=== PATIENT | female | born 1940 | race Caucasian/White ===

== ENCOUNTER → 2018-07-10 | Outpatient (CLI) | payer MEDICARE ==
--- NOTE | 2018-07-10 14:02 | US ---
EXAMINATION TYPE: US carotid duplex BILAT DATE OF EXAM: 07/10/2018 COMPARISON: NONE CLINICAL HISTORY: 77-year-old female TIA G45.9. TIA TECHNIQUE: Carotid duplex ultrasound examination. Indirect Doppler criteria was utilized. FINDINGS: EXAM MEASUREMENTS: RIGHT: Peak Systolic Velocity (PSV) cm/sec ----- Right CCA: 81.6 ----- Right ICA: 146.5 ----- Right ECA: 106.1 ICA/CCA ratio: 1.8 RIGHT: End Diastole cm/sec ----- Right CCA: 14.7 ----- Right ICA: 44.6 ----- Right ECA: 13.9 LEFT: Peak Systolic Velocity (PSV) cm/sec ----- Left CCA: 80.0 ----- Left ICA: 100.5 ----- Left ECA: 82.2 ICA/CCA ratio: 1.3 LEFT: End Diastole cm/sec ----- Left CCA: 22.7 ----- Left ICA: 35.8 ----- Left ECA: 18.3 VERTEBRALS (direction of flow): Right Vertebral: Antegrade Left Vertebral: Antegrade Rhythm: Normal Mild to moderate plaque bilateral bifurcations. Tortuous right ICA IMPRESSION: Elevated velocities in the right ICA may reflect a moderate (50-69%) stenosis or could be secondary t o vessel tortuosity. Criteria for Assigning % of Stenosis / Diameter reduction (Estimation based on the indirect measurements of the internal carotid artery velocities (ICA PSV). 1. Normal (no stenosis)=ICA PSV < 125 cm/s: ratio < 2.0: ICA EDV<40 cm/s. 2. Less than 50% stenosis=ICA PSV < 125 cm/s: ratio < 2.0: ICA EDV<40 cm/s. 3. 50 to 69% stenosis=ICA PSV of 125 to 230 cm/s: ration 2.0 ? 4.0: ICA EDV 40-100 cm/s. 4. Greater than 70% stenosis to near occlusion= ICA PSV > 230 cm/s: ratio > 4.0: ICA EDV > 100 cm/s. 5. Near occlusion= ICA PSV velocities may be low or undetectable: variable ratio and ICA EDV. 6. Total occlusion=unable to detect flow.
--- NOTE | 2018-07-10 15:39 | BD ---
EXAMINATION TYPE: Axial Bone Density DATE OF EXAM: 07/10/2018 COMPARISON: NONE CLINICAL HISTORY: 77-year-old female with osteoporosis Height: 63.5 IN Weight: 136 LBS RISK FACTORS HISTORY OF: Active: YES Postmenopausal woman: AGE 53 TOTAL HYSTERECTOMY Take estrogen and/or progesterone medications: NOT NOW How long: TOOK AGE 52 - 57 Lost more than 2 inches in height since high school: YES 07/26" MEDICATIONS: Additional Medications: CALCIUM, VIT D, RESTLESS LEG SYNDROME MEDS, XANAX, EXAM MEASUREMENTS: Bone mineral densitometry was performed using the [employer] Spirits System. Bone mineral density as measured about the Lumbar spine is: ----- L1-L4(G/cm2): 0.846 T Score Values are as follows: ----- L2: -3.7 ----- L3: -3.2 ----- L4: -2.1 ----- L1-L4: -2.8 Bone mineral density BASELINE Bone mineral density about the R hip (g/cm2): 0.795 Bone mineral density about the L hip (g/cm2): 0.938 T Score values are as follows: -----R Neck: -1.7 -----L Neck: -0.7 -----R Total: -2.0 -----L Total: -1.5 Bone mineral density BASELINE IMPRESSION: Osteoporosis (T Score less than -2.5). There is increased fracture risk and therapy is usually indicated based on age. Re-Screen 1-2 years. NOTE: T-SCORE=SD OF THE YOUNG ADULT MEAN.
--- NOTE | 2018-07-11 12:39 | ECHOF ---
Referral Reason:G45.9 MEASUREMENTS -------- HEIGHT: 162.6 cm WEIGHT: 61.2 kg BP: RVIDd: 2.5 cm (< 3.3) IVSd: 1.3 cm (0.6 - 1.1) LVIDd: 4.2 cm (3.9 - 5.3) LVPWd: 1.6 cm (0.6 - 1.1) IVSs: 1.6 cm LVIDs: 3.2 cm LVPWs: 1.3 cm LA Diam: 3.9 cm (2.7 - 3.8) LAESV Index (A-L): 57.83 ml/m Ao Diam: 2.8 cm (2.0 - 3.7) AV Cusp: 1.8 cm (1.5 - 2.6) LA Diam: 4.6 cm (2.7 - 3.8) MV EXCURSION: 15.618 mm (> 18.000) MV EF SLOPE: 44 mm/s (70 - 150) EPSS: 0.4 cm MV E Cody: 0.54 m/s MV DecT: 257 ms MV A Cody: 0.69 m/s MV E/A Ratio: 0.78 RAP: 5.00 mmHg RVSP: 48.80 mmHg FINDINGS -------- Sinus rhythm. This was a technically good study. The left ventricular size is normal. Left ventricular wall thickness is normal. Overall left vent ricular systolic function is normal with, an EF between 55 - 60 %. The right ventricle is normal in size. The left atrium is markedly dilated. LA is severely dilated >40 ml/m2 The right atrial size is normal. The aortic valve is trileaflet, and appears structurally normal. No aortic stenosis or regurgitation. The mitral valve leaflets are mildly thickened. Mild mitral annular calcification present. Modera te mitral regurgitation is present. Mild tricuspid regurgitation present. There is mild to moderate pulmonary hypertension. The right ventricular systolic pressure, as measured by Doppler, is 48.80mmHg. Trace/mild (physiologic) pulmonic regurgitation. The aortic root size is normal. There is no pericardial effusion. CONCLUSIONS -------- 1. The left ventricular size is normal. 2. Left ventricular wall thickness is normal. 3. Overall left ventricular systolic function is normal with, an EF between 55 - 60 %. 4. The right ventricle is normal in size. 5. The left atrium is markedly dilated. 6. LA is severely dilated >40 ml/m2 7. The right atrial size is normal. 8. The aortic valve is trileaflet, and appears structurally normal. No aortic stenosis or regurgitati on. 9. The mitral valve leaflets are mildly thickened. 10. Mild mitral annular calcification present. 11. Moderate mitral regurgitation is present. 12. Mild tricuspid regurgitation present. 13. There is mild to moderate pulmonary hypertension. 14. The right ventricular systolic pressure, as measured by Doppler, is 48.80mmHg. 15. Trace/mild (physiologic) pulmonic regurgitation. 16. The aortic root size is normal. 17. There is no pericardial effusion. REFUGE MANAGER: Jennie Santos RDCS
--- NOTE | 2018-07-20 14:51 | MM ---
Reason for exam: screening (asymptomatic). Last mammogram was performed 18 years and 5 months ago. History: Patient is postmenopausal. Family history of premenopausal breast cancer in sister. Took estrogen for 3 years. Physical Findings: A clinical breast exam by your physician is recommended on an annual basis and results should be correlated with mammographic findings. MG Screening Mammo w CAD Bilateral CC and MLO view(s) were taken. Prior study comparison: May 05, 2015, mammogram. March 28, 2014, mammogram. November 18, 2011, mammogram. There are scattered fibroglandular densities. Stable benign calcifications. There is no discrete abnormality. No significant changes when compared with prior studies. ASSESSMENT: Benign, BI-RAD 2 RECOMMENDATION: Routine screening mammogram of both breasts in 1 year.
== END | disposition home or self-care (01) ==
LOC: RADUSWWP 12:07
PROVIDERS: ATTEND Internal Medicine
DX: Z12.31 Encounter for screening mammogram for malignant neoplasm of breast (principal); M81.0 Age-related osteoporosis without current pathological fracture; G45.9 Transient cerebral ischemic attack, unspecified; I08.1 Rheumatic disorders of both mitral and tricuspid valves; I27.20 Pulmonary hypertension, unspecified
CPT/HCPCS: 77067; 77080; 93306; 93880

== ENCOUNTER → 2018-08-04 | Outpatient (CLI) | payer MEDICARE ==
[~2018-08-04] MED LIST: SODIUM CHLORIDE 0.9% 500 ML 500 ML in EMPTY BAG 1 BAG IV PRN; SODIUM FERRIC GLUCONAT-SUCROSE 125 MG in SODIUM CHLORIDE 0.9% 100 ML IVPB NR
[2018-08-04 12:56] VITALS: BP 156/66; PULSE 70; RESP 16; TEMP 98.2
== END | disposition home or self-care (01) ==
LOC: PROCWHC3 12:14
PROVIDERS: ATTEND Internal Medicine
DX: D64.9 Anemia, unspecified (principal)
CPT/HCPCS: 96365; J2916

== ENCOUNTER 2018-08-24 09:51 | Day surgery (SDC) | payer MEDICARE ==
[2018-08-23 08:47] VITALS: BMI 23.5
[~2018-08-24 09:51] MED LIST changes: +LACTATED RINGERS 1,000 ML IV SCH; +LIDOCAINE 1% 20 ML VIAL (10MG/ML) FOR IV START INTRADERMA PRN; -SODIUM CHLORIDE 0.9% 500 ML 500 ML in EMPTY BAG 1 BAG IV PRN; -SODIUM FERRIC GLUCONAT-SUCROSE 125 MG in SODIUM CHLORIDE 0.9% 100 ML IVPB NR
[2018-08-24] MEDS ORDERED: LIDOCAINE 1% 20 ML VIAL (10MG/ML) FOR IV START INTRADERMA ONE (10:20)
[2018-08-24 10:32] VITALS: TEMP 97.7
[2018-08-24] MEDS ORDERED: PROPOFOL 10 MG/ML 20 ML VIAL IV ONE (10:56)
[2018-08-24] MEDS ORDERED: LIDOCAINE 1% INJ 10MG/ML (20 ML MDV) ONE (10:56)
--- NOTE | 2018-08-24 12:03 | P.PCN ---
Date of Procedure: 08/24/18 Description of Procedure: BRIEF HISTORY: Patient is a 77-year-old pleasant female patient who is scheduled for an elective colonoscopy as a part of evaluation of a positive Cologard with her PCP. The patient has a family history of colon cancer in her mother, as well as prior colonoscopies with removal of polyps, the last approximately 5 years ago. She denies any change in bowel habits, blood per rectum, or unintentional weight loss. PROCEDURE PERFORMED: Colonoscopy with cold snare polypectomy. PREOPERATIVE DIAGNOSIS: Positive cologard, high risk colon cancer screening, family history of colon cancer. ESTIMATED BLOOD LOSS: Minimal. IV sedation per Anesthesia. PROCEDURE: After informed consent was obtained, the patient, was brought into the endoscopy unit. IV sedation was administered by Anesthesia under continuous monitoring. Digital rectal examination was normal. Initially the Olympus CF- 190 flexible video colonoscope was then inserted in the rectum, gradually advanced into the cecum without any difficulty. Careful examination was performed as the scope was gradually being withdrawn. Ileocecal valve and the appendiceal orifice were visualized and appeared normal. Prep was excellent. Mucosa of the cecum, ascending colon, transverse colon, descending colon, sigmoid colon, and rectum appeared normal. The patient had small and large diverticula in the entire examined colon. A large 8 mm sessile polyp was noted in the cecum and removed with cold snare polypectomy. A 5 mm sessile polyp was noted in the transverse colon and removed with cold snare polypectomy. A 4 mm sessile polyp was noted in the descending colon and removed with cold snare polypectomy. Retroflexion was performed in the rectum and no lesions were seen , mild internal hemorrhoids were noted. The patient tolerated the procedure well. IMPRESSION: Normal-appearing colon from rectum to cecum. Cold snare polypectomy of polyps in the cecum, transverse colon, and descending colon. Pandiverticulosis. Mild internal hemorrhoids. RECOMMENDATIONS: Findings of this examination were discussed with the patient and her niece. Okay to resume diet. Would recommend repeat colonoscopy in 5 years. Await pathology from biopsies.
[2018-08-24 12:04] VITALS: RESP 18
[2018-08-24 12:17] VITALS: BP 167/70; PULSE 78
== END 2018-08-24 12:33 | disposition home or self-care (01) ==
LOC: ORWHC2ENDO 09:51
PROVIDERS: ATTEND Internal Medicine
DX: D12.0 Benign neoplasm of cecum (principal); D12.4 Benign neoplasm of descending colon; D12.3 Benign neoplasm of transverse colon; K64.8 Other hemorrhoids; Z86.010 Personal history of colon polyps; Z80.0 Family history of malignant neoplasm of digestive organs; Z87.891 Personal history of nicotine dependence; Z86.73 Personal history of transient ischemic attack (TIA), and cerebral infarction without residual deficits; E78.5 Hyperlipidemia, unspecified; Z79.82 Long term (current) use of aspirin; Z79.899 Other long term (current) drug therapy; F32.9 Major depressive disorder, single episode, unspecified; F41.9 Anxiety disorder, unspecified
CPT/HCPCS: 88305; 45385; J2001; J2704

== ENCOUNTER → 2018-09-06 | Outpatient (CLI) | payer MEDICARE ==
[~2018-09-06] MED LIST changes: +FERUMOXYTOL 510 MG in SODIUM CHLORIDE 0.9% 50 ML IVPB ONE; -LACTATED RINGERS 1,000 ML IV SCH; -LIDOCAINE 1% 20 ML VIAL (10MG/ML) FOR IV START INTRADERMA PRN; +SODIUM CHLORIDE 0.9% 500 ML 500 ML in EMPTY BAG 1 BAG IV PRN; +SODIUM FERRIC GLUCONAT-SUCROSE 125 MG in SODIUM CHLORIDE 0.9% 100 ML IVPB ONE
[2018-09-06 13:45] VITALS: BP 176/78; PULSE 76; RESP 16; TEMP 97.9
== END ==
LOC: PROCWHC3 13:13
PROVIDERS: ATTEND Internal Medicine
DX: D64.9 Anemia, unspecified (principal)
CPT/HCPCS: 96365; J2916

== ENCOUNTER 2018-12-23 17:02 | Observation (INO) | payer MEDICARE, OTHER ==
--- NOTE | 2018-12-23 17:28 | ED ---
General Adult HPI - General Chief complaint: Neuro Symptoms/Deficit Stated complaint: fingers locking up/left arm numbness Time Seen by Provider: 12/23/18 17:11 Source: patient Mode of arrival: ambulatory Limitations: no limitations - History of Present Illness Initial comments: Dictation was produced using [employer] dictation software. please excuse any grammatical, word or spelling errors. Chief Complaint: 77-year-old female past medical history of CVA, TIA, dyslipidemia presents with numbness to the hypothenar eminence. History of Present Illness: Patient is a 77-year-old female presents with numbness to the hypothenar eminence. She has history of CVA involving the brainstem. She states that she came to the emergency Department pressures were about a stroke. Patient states that early this morning she did hit her hand the same side where she is currently experiencing numbness. She states she got her hand caught when she was shutting the door. She was at dinner when she went to wipe her hand and felt some decrease sensation to her left hyperthenar eminence. Patient's history of peripheral neuropathy. Denies any other neurologic complaints. The ROS documented in this emergency department record has been reviewed and confirmed by me. Those systems with pertinent positive or negative responses have been documented in the HPI. All other systems are other negative and/or noncontributory. PHYSICAL EXAM: General Impression: Alert and oriented x3, not in acute distress HEENT: Normocephalic atraumatic, extra-ocular movements intact, pupils equal and reactive to light bilaterally, mucous membranes moist. Cardiovascular: Heart regular rate and rhythm, S1&S2 audible, no murmurs, rubs or gallops Chest: Lungs clear to auscultation bilaterally, no rhonchi, no wheeze, no rales Abdomen: Bowel sounds present, abdomen soft, non-tender, non-distended, no organomegaly Musculoskeletal: Pulses present and equal in all extremities, no peripheral edema Motor: no focal deficits noted Neurological: CN II-XII grossly intact, no focal motor or sensory deficits noted, no facial droop, no aphasia, dysarthria, no ataxia Skin: Intact with no visualized rashes Psych: Normal affect and mood ED course: 77-year-old female presents with chief complaint of numbness to the hyperthenar eminence. Patient has NIH of 0. Upon arrival are within acceptable limits. Patient is concerned about stroke. Reassurance provided however patient was adamant about stroke workup. Discussed patient that her symptoms are not consistent with stroke. Patient then reports that over the last week she's been having numbness to the whole upper left extremity. Abdomen evaluation obtained. CBC, coag panel, metabolic panel is unremarkable. Patient does however have mild hypokalemia of 3.3. Patient given by mouth potassium. Patient glucose 67 she is given by mouth. Hand x-ray chest x-ray and brain CT is unremarkable. Patient given aspirin for concerns of CVA versus TIA. Patient be admitted to observation with neurology consultation. EKG interpretation: Ventricular rate 76, normal sinus rhythm, CA interval 136, QS 90, QTC 452. No CA prolongation, no QTC prolongation, no ST or T-wave changes noted. Overall, this EKG is unremarkable - Related Data Home Medications Medication Instructions Recorded Confirmed Atorvastatin [Lipitor] 40 mg PO HS 08/04/18 12/23/18 PARoxetine [Paxil] 40 mg PO HS 08/04/18 12/23/18 rOPINIRole HCL [Requip] 1 mg PO TID 08/04/18 12/23/18 ALPRAZolam [Xanax] 0.25 mg PO BID PRN 08/23/18 12/23/18 Alendronate Sodium [Fosamax] 70 mg PO MO 08/23/18 12/23/18 Allergies Allergy/AdvReac Type Severity Reaction Status Date / Time No Known Allergies Allergy Verified 12/23/18 17:34 Review of Systems ROS Statement: Those systems with pertinent positive or pertinent negative responses have been documented in the HPI. ROS Other: All systems not noted in ROS Statement are negative. Past Medical History Past Medical History: CVA/TIA, Hyperlipidemia Additional Past Medical History / Comment(s): Restless leg syndrome. Mini- stroke 1998 History of Any Multi-Drug Resistant Organisms: MRSA Date of last positivie culture/infection: 2003 MDRO Source:: unknown per pt. Past Surgical History: Hernia Repair, Hysterectomy Additional Past Surgical History / Comment(s): Hiatal hernia repair Past Psychological History: Anxiety Smoking Status: Former smoker Past Alcohol Use History: None Reported Past Drug Use History: None Reported General Exam Limitations: no limitations Course Vital Signs 12/23/18 12/23/18 17:05 19:03 Temperature 98.5 F Pulse Rate 83 78 Respiratory 18 18 Rate Blood Pressure 136/71 132/65 O2 Sat by Pulse 100 98 Oximetry Medical Decision Making - Lab Data Result diagrams: 12/23/18 17:30 12/23/18 17:30 Lab Results 12/23/18 12/23/18 12/23/18 Range/Units 17:30 17:30 17:30 WBC 5.4 (3.8-10.6) k/uL RBC 4.52 (3.80-5.40) m/uL Hgb 12.3 (11.4-16.0) gm/dL Hct 38.8 (34.0-46.0) % MCV 85.7 (80.0-100.0) fL MCH 27.2 (25.0-35.0) pg MCHC 31.7 (31.0-37.0) g/dL RDW 15.4 (11.5-15.5) % Plt Count 201 (150-450) k/uL Neutrophils % 62 % Lymphocytes % 27 % Monocytes % 6 % Eosinophils % 3 % Basophils % 0 % Neutrophils # 3.3 (1.3-7.7) k/uL Lymphocytes # 1.5 (1.0-4.8) k/uL Monocytes # 0.3 (0-1.0) k/uL Eosinophils # 0.1 (0-0.7) k/uL Basophils # 0.0 (0-0.2) k/uL Hypochromasia Slight PT 9.7 (9.0-12.0) sec INR 0.9 (<1.2) APTT 23.9 (22.0-30.0) sec Sodium 143 (137-145) mmol/L Potassium 3.3 L (3.5-5.1) mmol/L Chloride 109 H (98-107) mmol/L Carbon Dioxide 27 (22-30) mmol/L Anion Gap 7 mmol/L BUN 19 H (7-17) mg/dL Creatinine 0.75 (0.52-1.04) mg/dL Est GFR (CKD-EPI)AfAm >90 (>60 ml/min/1.73 sqM) Est GFR (CKD-EPI)NonAf 78 (>60 ml/min/1.73 sqM) Glucose 67 L (74-99) mg/dL Calcium 9.6 (8.4-10.2) mg/dL Total Bilirubin 0.4 (0.2-1.3) mg/dL AST 18 (14-36) U/L ALT 14 (9-52) U/L Alkaline Phosphatase 91 (38-126) U/L Creatine Kinase 66 (30-135) U/L Troponin I (0.000-0.034) ng/mL Total Protein 6.2 L (6.3-8.2) g/dL Albumin 3.7 (3.5-5.0) g/dL 12/23/18 Range/Units 17:30 WBC (3.8-10.6) k/uL RBC (3.80-5.40) m/uL Hgb (11.4-16.0) gm/dL Hct (34.0-46.0) % MCV (80.0-100.0) fL MCH (25.0-35.0) pg MCHC (31.0-37.0) g/dL RDW (11.5-15.5) % Plt Count (150-450) k/uL Neutrophils % % Lymphocytes % % Monocytes % % Eosinophils % % Basophils % % Neutrophils # (1.3-7.7) k/uL Lymphocytes # (1.0-4.8) k/uL Monocytes # (0-1.0) k/uL Eosinophils # (0-0.7) k/uL Basophils # (0-0.2) k/uL Hypochromasia PT (9.0-12.0) sec INR (<1.2) APTT (22.0-30.0) sec Sodium (137-145) mmol/L Potassium (3.5-5.1) mmol/L Chloride (98-107) mmol/L Carbon Dioxide (22-30) mmol/L Anion Gap mmol/L BUN (7-17) mg/dL Creatinine (0.52-1.04) mg/dL Est GFR (CKD-EPI)AfAm (>60 ml/min/1.73 sqM) Est GFR (CKD-EPI)NonAf (>60 ml/min/1.73 sqM) Glucose (74-99) mg/dL Calcium (8.4-10.2) mg/dL Total Bilirubin (0.2-1.3) mg/dL AST (14-36) U/L ALT (9-52) U/L Alkaline Phosphatase (38-126) U/L Creatine Kinase (30-135) U/L Troponin I <0.012 (0.000-0.034) ng/mL Total Protein (6.3-8.2) g/dL Albumin (3.5-5.0) g/dL Disposition Clinical Impression: Neurologic abnormality Disposition: ADMITTED IP TO THIS HOSP Condition: Fair Referrals: Colleen Pires MD [Primary Care Provider] - 1-2 days Decision Time: 19:17
[2018-12-23 18:10] LABS: Basophils % (A) 0 %; Eosinophils # (A) 0.1 k/uL (0-0.7); Eosinophils % (A) 3 %; HCT 38.8 % (34.0-46.0); HGB 12.3 gm/dL (11.4-16.0); Hypochromasia Slight; Lymphocytes # (A) 1.5 k/uL (1.0-4.8); Lymphocytes % (A) 27 %; MCH 27.2 pg (25.0-35.0); MCHC 31.7 g/dL (31.0-37.0); MCV 85.7 fL (80.0-100.0); Mean Platelet Volume 7.5; Monocytes # (A) 0.3 k/uL (0-1.0); Monocytes % (A) 6 %; Neutrophils # (A) 3.3 k/uL (1.3-7.7); Neutrophils % (A) 62 %; Platelet Count 201 k/uL (150-450); RBC 4.52 m/uL (3.80-5.40); RDW 15.4 % (11.5-15.5); WBC 5.4 k/uL (3.8-10.6)
--- NOTE | 2018-12-23 18:14 | CT ---
EXAMINATION TYPE: CT brain wo con DATE OF EXAM: 12/23/2018 HISTORY: Neuro deficits. CT DLP: 1087.4 mGycm. Automated Exposure Control for Dose Reduction was Utilized. TECHNIQUE: CT scan of the head is performed without contrast. COMPARISON: None. FINDINGS: There is no acute intracranial hemorrhage or midline shift identified. There is diffuse v entricular and sulcal prominence consistent with diffuse age-related cerebral atrophy. There is low- attenuation in the periventricular white matter consistent with chronic small vessel ischemic change. The globes are intact and the visualized sinuses are clear. IMPRESSION: No acute intracranial hemorrhage or midline shift. There is mild to moderate diffuse ag e-related cerebral atrophy and chronic small vessel ischemic change noted.
[2018-12-23 18:18] LABS: ALT 14 U/L (9-52); AST 18 U/L (14-36); Albumin 3.7 g/dL (3.5-5.0); Alkaline Phosphatase 91 U/L (38-126); Anion Gap 7 mmol/L; Blood Urea Nitrogen 19 mg/dL (7-17); Calcium 9.6 mg/dL (8.4-10.2); Carbon Dioxide 27 mmol/L (22-30); Chloride 109 mmol/L (98-107); Creatine Kinase 66 U/L (30-135); Glucose 67 mg/dL (74-99); Potassium 3.3 mmol/L (3.5-5.1); Sodium 143 mmol/L (137-145); Total Bilirubin 0.4 mg/dL (0.2-1.3); Total Protein 6.2 g/dL (6.3-8.2)
--- NOTE | 2018-12-23 18:18 | XR ---
EXAMINATION TYPE: XR chest 2V DATE OF EXAM: 12/23/2018 COMPARISON: NONE HISTORY: Altered mental status and weakness. TECHNIQUE: Frontal and lateral views of the chest are obtained. FINDINGS: Overlying EKG leads are seen. There is no focal air space opacity, pleural effusion, or pn eumothorax seen. The cardiac silhouette size is within normal limits with atherosclerotic change in the aortic knob. The osseous structures are intact. IMPRESSION: No acute cardiopulmonary process.
--- NOTE | 2018-12-23 18:19 | XR ---
EXAMINATION TYPE: XR hand complete LT DATE OF EXAM: 12/23/2018 CLINICAL HISTORY: Pain per order. Left hand weakness. TECHNIQUE: Frontal, lateral and oblique images of the left hand are obtained. COMPARISON: None. FINDINGS: Demineralization is present. There is no acute fracture/dislocation evident in the left burgos d. Mild narrowing throughout the PIP and DIP joints of the fingers is present. The overlying soft ti ssue appears unremarkable. IMPRESSION: As above.
[2018-12-23 18:21] LABS: INR 0.9 (<1.2); Partial Thromboplastin Time 23.9 sec (22.0-30.0); Prothrombin Time 9.7 sec (9.0-12.0)
[2018-12-23] MEDS ORDERED: POTASSIUM CHLORIDE ER 20 MEQ TAB.ER PO STA (18:33)
[2018-12-23] MEDS ORDERED: ASPIRIN 325 MG TAB PO STA (19:14)
[2018-12-23] MEDS: SODIUM CHLORIDE 0.9% 1,000 ML IV SCH ×2 (19:19→19:52)
[2018-12-23 20:56] VITALS: BMI 23.8
--- NOTE | 2018-12-23 20:57 | P.CNNES ---
History of Present Illness Consult date: 12/23/18 Reason for Consult: Neuro symptoms History of Present Illness: Patient is a 77-year-old female who claims that she had history of "mini stroke in the brainstem" about 15 years ago. She was placed on aspirin, but a few years later patient was told by her physician to stop taking it. She was living in [place] at that time. At present she is not taking any antiplatelet medications for years. Patient states that in the past 3 months she has been having intermittent numbness and tingling of the left arm, pointing to the entire left arm. It does not involve the face or the leg. Denies any weakness, problems with the vision, slurred speech or facial droop. Patient says that she was out to dinner with her friend, when her left hand started curling up. Patient's description of the symptoms appears more like a muscle cramp or a charley horse. She felt pain in the center of the palm. She got concerned if she was having a stroke and therefore came to the ER. Patient also feels that when she is walking, she sometimes veers to the right side. Patient underwent computed tomography scan of the brain, which revealed no acute intracranial hemorrhage or midline shift. There is mild to moderate diffuse age-related cerebral atrophy and chronic small vessel ischemic change. Chest x- ray showed no acute cardiopulmonary process. EKG showed normal sinus rhythm. Patient had a 2-D echo performed 07/10/2018, which revealed EF 55-60%, normal left ventricular size. Left atrium is markedly dilated. Moderate mitral regurgitation. Patient had carotid Doppler on 07/10/2018, which revealed elevated velocities in the right ICA may reflect a moderate 50-69% stenosis or could be secondary to vessel tortuosity. Patient denies hypertension or diabetes. She had history of a mini stroke 15 years ago when she developed weakness of the left side. She smoked 1 pack per day for 14 years, quit 15-20 years ago. Denies any alcohol. Patient's blood test were reviewed. Liver functions are normal. Review of Systems All systems: negative (Frequent cramps in the left leg.) Past Medical History Past Medical History: CVA/TIA, Hyperlipidemia Additional Past Medical History / Comment(s): Restless leg syndrome. Mini- stroke 1998 History of Any Multi-Drug Resistant Organisms: MRSA Date of last positivie culture/infection: 2003 MDRO Source:: unknown per pt. Past Surgical History: Hernia Repair, Hysterectomy Additional Past Surgical History / Comment(s): Hiatal hernia repair Past Psychological History: Anxiety Smoking Status: Former smoker Past Alcohol Use History: None Reported Past Drug Use History: None Reported Medications and Allergies Home Medications Medication Instructions Recorded Confirmed Type Atorvastatin [Lipitor] 40 mg PO HS 08/04/18 12/23/18 History PARoxetine [Paxil] 40 mg PO HS 08/04/18 12/23/18 History rOPINIRole HCL [Requip] 1 mg PO TID 08/04/18 12/23/18 History ALPRAZolam [Xanax] 0.25 mg PO BID PRN 08/23/18 12/23/18 History Alendronate Sodium [Fosamax] 70 mg PO MO 08/23/18 12/23/18 History Allergies Allergy/AdvReac Type Severity Reaction Status Date / Time No Known Allergies Allergy Verified 12/23/18 17:34 Physical Examination - Vital Signs Vital Signs: Vital Signs Temp Pulse Resp BP Pulse Ox 12/23/18 19:59 80 15 12/23/18 19:28 98.2 F 72 16 136/72 96 12/23/18 19:03 78 18 132/65 98 12/23/18 17:05 98.5 F 83 18 136/71 100 Intake and Output 12/23/18 12/23/18 12/23/18 06:59 14:59 22:59 Other: Weight 62.142 kg On examination patient is an elderly female, in no distress. Patient is alert and awake, fully oriented. Speech and language functions are normal. On cranial nerve examination, patient has mild left facial asymmetry. Tongue protrudes the midline. Palatal elevation and sensation normal. On muscle s trength testing, there is no pronator drift and the strength is normal in arms and legs distally and proximally. Reflexes are 2 in the upper limbs, 3 at the knees, 1 at the right ankle trace on the left. Plantars are downgoing. Patient gets frequent cramps in the left leg. Sensory touch is equal. No ataxia for [id number], tone and bulk of muscles normal. Gait appears normal. Results - Laboratory Findings CBC and BMP: 12/23/18 17:30 12/23/18 17:30 Abnormal Lab Findings: Abnormal Labs 12/23/18 17:30 Potassium 3.3 L Chloride 109 H BUN 19 H Glucose 67 L Total Protein 6.2 L Assessment and Plan Assessment: * Left arm numbness off and on for last 3 months, unclear etiology. Rule out TIA, Doubt acute CVA. * History of moderate left ICA stenosis noted on carotid Doppler from 07/10/2018 * Probable muscle cramps left hand. No definitive evidence of acute CVA. * X tobacco use * History of previous TIA/CVA. Plan: * Patient has moderate right ICA stenosis noted on previous carotid Doppler. With recurrent symptoms of the left arm, we will check CTA of head and neck to rule out any significant carotid stenosis or occlusion. * Agree with starting aspirin 325 mg daily for now. * We will check fasting lipid panel, hemoglobin A1c, B12, folate.
[2018-12-23] MEDS ORDERED: ATORVASTATIN 40 MG TAB PO SCH (21:00)
[2018-12-23] MEDS: FAMOTIDINE 20 MG TAB PO SCH (21:11)
[2018-12-24 08:19] VITALS: RESP 18
[2018-12-24] MEDS: FAMOTIDINE 20 MG TAB PO SCH (08:24)
[2018-12-24] MEDS ORDERED: ASPIRIN 325 MG TAB PO SCH (09:00)
--- NOTE | 2018-12-24 13:09 | P.HPIM ---
History of Present Illness H&P Date: 12/24/18 Chief Complaint: Left hand cramping HISTORY AND PHYSICAL AND DISCHARGE SUMMARY: This is a 77-year-old female patient of Dr. Pires with past medical history of TIA, hyperlipidemia, restless leg syndrome, iron deficiency anemia worked up in July status post colonoscopy found tubular adenoma, carotid stenosis. The patient states that she was diagnosed with a TIA in [place] and had left and weakness. Patient states she developed numbness and tingling to the left arm but this is a going on for some time and she does have chronic neck pain possibly all related to degenerative disc disease of the cervical spine. The patient states that she yesterday she developed cramping and the left ring finger and she could not bend it followed by involvement of the third digit and fifth digit as well. She denied any slurred speech. Patient also states that she has had dizzy spells where she starts to fall over and has to catch herself when she is walking. She states she has about one of these episodes per day and they have been going on for some time. The patient presented to [facility] emergency center for e valuation. She was found to have a potassium 3.3, chloride 109, BUN 19 and creatinine 0.75, blood sugar 67. Triglycerides 50, cholesterol 124, LDL 56, HDL 58, TSH 2.020. Magnesium 1.9 CAT scan of the brain revealed no acute intracranial hemorrhage or midline shift shift. [id number] diffuse age- related cerebral atrophy and chronic small vessel ischemic change. Chest x-ray showed no acute cardio pulmonary process. EKG was a normal sinus rhythm. Echocardiogram in June 2018 had EF of 55-60%, normal left ventricular size. Left atrium markedly dilated. Moderate mitral regurgitation. Carotid Doppler on 07/10/2018 had elevated velocities on the right ICA may reflect moderate 50-6 9% stenosis or secondary to vessel tortuosity. The patient has been seen by Dr. Sharma and he has ordered CTA of the head and neck to rule out significant carotid stenosis or occlusion. Patient is currently on aspirin 325 mg daily. Hemoglobin A1c, vitamin B12, folate and lipid panel ordered. Patient's symptoms have resolved. Folate, Hemoglobin A1c, Vitamin B12 are all pending. CTA of the head and neck revealed no significant stenosis in either carotid system. 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 Left vertebral artery attenuates as it leaves the transverse foramen but reconstitution with normal caliber. [place] otherwise unremarkable. Degenerative changes within the spine. Emphysematous changes within the lungs. Mild chronic sinus mucosal disease. Patient has been cleared for discharge by neurology. Patient will be discharged home today in stable condition. Aspirin has been added to patient's home medication regime. Review of Systems All systems: negative Constitutional: Denies chills, Denies fatigue, Denies fever, Denies lethargy, Denies malaise, Denies poor appetite, Denies weight loss Eyes: denies blurred vision, denies pain Ears, nose, mouth and throat: Denies dysphagia, Denies headache, Denies nasal congestion, Denies nasal discharge, Denies sore throat Cardiovascular: Denies chest pain, Denies decreased exercise tolerance, Denies dyspnea on exertion, Denies edema, Denies leg edema, Denies lightheadedness, Denies shortness of breath, Denies syncope Respiratory: Denies cough, Denies cough with sputum, Denies dyspnea, Denies excessive sputum, Denies hemoptysis, Denies home oxygen, Denies wheezing Gastrointestinal: Denies abdominal pain, Denies diarrhea, Denies loss of appetite, Denies melena, Denies nausea, Denies vomiting Genitourinary: Denies dysuria, Denies hematuria, Denies urgency, Denies urinary frequency Musculoskeletal: Reports arm numbness/tingling, Denies frequent falls, Denies gait dysfunction, Denies muscle weakness, Denies myalgias Integumentary: Denies pruritus, Denies rash Neurological: Denies aphasia, Denies change in mentation, Denies change in speech, Denies confusion, Denies gait dysfunction, Denies headaches, Denies numbness, Denies weakness Psychiatric: Denies anxiety, Denies depression Endocrine: Denies fatigue, Denies weight change Past Medical History Past Medical History: CVA/TIA, Hyperlipidemia Additional Past Medical History / Comment(s): Restless leg syndrome. Mini- stroke 1998 History of Any Multi-Drug Resistant Organisms: MRSA Date of last positivie culture/infection: 2003 MDRO Source:: unknown per pt. Past Surgical History: Hernia Repair, Hysterectomy Additional Past Surgical History / Comment(s): Hiatal hernia repair Past Psychological History: Anxiety Smoking Status: Former smoker Past Alcohol Use History: None Reported Additional Past Alcohol Use History / Comment(s): Patient was a smoker of less than one pack per day for approximately 30 years and quit 14 years ago. Patient is and lives alone. No alcohol use. Past Drug Use History: None Reported - Past Family History Father Additional Family Medical History / Comment(s): Father at age 76 from heart failure. Mother Additional Family Medical History / Comment(s): Mother at age 76 from colon cancer. Brother(s) Additional Family Medical History / Comment(s): Patient has one brother with history of prostate cancer and from, occasions of agent orange exposure in [place]. Sister(s) Additional Family Medical History / Comment(s): The patient has 3 sisters. One has history of breast cancer and carotid stenosis. 1 has bipolar disorder. One has no major medical problems. Patient has 2 children, one daughter at 50 years of age and one son age 44 with no major medical problems. Medications and Allergies Home Medications Medication Instructions Recorded Confirmed Type Atorvastatin [Lipitor] 40 mg PO HS 08/04/18 12/23/18 History PARoxetine [Paxil] 40 mg PO HS 08/04/18 12/23/18 History rOPINIRole HCL [Requip] 1 mg PO TID 08/04/18 12/23/18 History ALPRAZolam [Xanax] 0.25 mg PO BID PRN 08/23/18 12/23/18 History Alendronate Sodium [Fosamax] 70 mg PO MO 08/23/18 12/23/18 History Aspirin 325 mg PO DAILY tab 12/24/18 Rx Allergies Allergy/AdvReac Type Severity Reaction Status Date / Time No Known Allergies Allergy Verified 12/23/18 17:34 Physical Exam Vitals: Vital Signs Temp Pulse Pulse Resp BP BP Pulse Ox 12/24/18 08:00 97.8 F 65 18 146/68 98 12/24/18 03:27 97.5 F L 67 16 145/71 98 12/24/18 00:00 77 16 148/71 98 12/23/18 20:00 97.9 F 70 16 179/79 99 12/23/18 19:59 80 15 12/23/18 19:28 98.2 F 72 16 136/72 96 12/23/18 19:03 78 18 132/65 98 12/23/18 17:05 98.5 F 83 18 136/71 100 Intake and Output 12/23/18 12/24/18 12/24/18 22:59 06:59 14:59 Intake Total 228 Balance 228 Intake: Oral 228 Other: # Voids 1 Weight 62.142 kg 63.1 kg Gen: This is a 77-year-old female. Patient is resting in bed and appears to be comfortable and in no acute distress. HEENT: Head is atraumatic, normocephalic. Pupils equal, round. Sclerae is anicteric. NECK: Supple. No JVD. No lymphadenopathy. No thyromegaly. LUNGS: Clear to auscultation. No wheezes or rhonchi. No intercostal retractions. HEART: Regular rate and rhythm. No murmur. ABDOMEN: Soft. Bowel sounds are present. No masses. No tenderness. EXTREMITIES: No pedal edema. No calf tenderness. NEUROLOGICAL: Patient is awake, alert and oriented x3. Cranial nerves 2 through 12 are grossly intact. Exercise Scientist strength equal bilaterally Results CBC & Chem 7: 12/23/18 17:30 12/23/18 17:30 Labs: Abnormal Lab Results - Last 24 Hours (Table) 12/23/18 Range/Units 17:30 Potassium 3.3 L (3.5-5.1) mmol/L Chloride 109 H (98-107) mmol/L BUN 19 H (7-17) mg/dL Glucose 67 L (74-99) mg/dL Total Protein 6.2 L (6.3-8.2) g/dL Thrombosis Risk Factor Assmnt - Choose All That Apply Any of the Below Risk Factors Present?: Yes Other Risk Factors: Yes Each Risk Factor Represents 3 Points: Age 75 years or older Other congenital or acquired thrombophilia - If yes, enter type in comment: No Thrombosis Risk Factor Assessment Total Risk Factor Score: 3 Thrombosis Risk Factor Assessment Level: Moderate Risk Assessment and Plan Plan: 1. Left hand cramping possibly secondary to hypokalemia. Resolved. Patient started on aspirin. 2. Chronic left arm numbness possibly related to cervical disc disease. 3. History of TIA. 4. Known carotid stenosis. 5. Iron deficiency anemia status post workup in July,. 6. Remote history of tobacco use. Patient places him in observation status. Discharge plan: Home Discharge Medication List Atorvastatin [Lipitor] 40 mg PO HS 01/11/19 [History] PARoxetine [Paxil] 40 mg PO HS 08/04/18 [History] rOPINIRole HCL [Requip] 1 mg PO TID 08/04/18 [History] ALPRAZolam [Xanax] 0.25 mg PO BID PRN 08/23/18 [History] Alendronate Sodium [Fosamax] 70 mg PO MO 08/23/18 [History] Aspirin 325 mg PO DAILY tab 12/24/18 [Rx] Impression and plan of care have been directed as dictated by the signing physician. Ness Tellez nurse practitioner acting as scribe for signing physician.
[2018-12-24 14:03] VITALS: BP 147/76; PULSE 77; TEMP 97.9
--- NOTE | 2018-12-24 14:05 | CT ---
EXAMINATION TYPE: CT angio head neck DATE OF EXAM: 12/24/2018 HISTORY: Left arm numbness COMPARISON: CT DLP: 338 mGycm. Automated Exposure Control for Dose Reduction was Utilized. TECHNIQUE: CTA scan of the neck is performed with IV Contrast, patient injected with 50 mL of Isovue 370, axial images are obtained, coronal and sagittal reformatted images are reviewed. Three-D recons tructed images are created on an independent workstation and reviewed. FINDINGS: There are emphysematous changes within the visualized portions of the lungs. Vertebral body height and alignment are maintained. Atlantoaxial relationships are normal. There is disc space loss and hypertrophic spondylosis throughout the cervical spine with relative spa ring of C2-3. There is uncovertebral joint disease throughout the spine. There is mild facet arthropa thy bilaterally at C2-3. No definite protrusion is seen. There is mild mucosal thickening involving the maxillary sinuses bilaterally. There is also mucosal t hickening involving the ethmoid sinuses. There is a normal origin of the great vessels. The left vertebral artery is dominant. There is mild atheromatous calcification at the left carotid bulb. There is more moderate calcificati on at the right carotid bulb. Neither carotid demonstrates hemodynamically significant stenosis. The right vertebral artery appears to terminate at the posterior inferior cerebellar artery. 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 The basilar artery is more normal in caliber. The right posterior communicating artery is visualized. The left is not. The anterior to indicating a rtery is patent into anterior cerebral arteries are visualized. There is normal branching of the [place] cerebral artery. Intracranial structures appear unremarkable. IMPRESSION: 1. NO SIGNIFICANT STENOSIS IN EITHER CAROTID SYSTEM. 2. OCCLUSION OF THE RIGHT VERTEBRAL ARTERY ON THE LEVEL OF PICA. LEFT VERTEBRAL ARTERY ATTENUATES IT LEAVES THE TRANSVERSE FORAMEN BUT PT IS RECONSTITUTED WITH NORMAL CALIBER. THE [place] OF [place] IS OTHERWISE UNREMARKABLE. 3. DEGENERATIVE CHANGES WITHIN THE SPINE. 4. EMPHYSEMATOUS CHANGES WITHIN THE LUNGS. 5. MILD, CHRONIC SINUS MUCOSAL DISEASE.
--- NOTE | 2018-12-24 16:15 | P.PN ---
Subjective Progress Note Date: 12/24/18 Patient is doing much better. Denies any new neurological symptoms. Patient underwent CTA of the neck, which revealed occlusion of the right vertebral artery at level of PICA. No significant carotid artery disease. Patient's LDL is 56, HDL 58. Hemoglobin A1c pending. Objective - Vital Signs Vital signs: Vital Signs Temp 97.9 F 12/24/18 12:00 Pulse 77 12/24/18 12:00 Resp 18 12/24/18 12:00 BP 147/76 12/24/18 12:00 Pulse Ox 95 12/24/18 12:00 Intake & Output 12/23/18 12/24/18 12/24/18 18:59 06:59 18:59 Intake Total 228 250 Balance 228 250 Weight 62.142 kg 63.1 kg Intake: Oral 228 250 Other: # Voids 1 2 - Exam Mental status, speech and language functions are normal. - Labs CBC & Chem 7: 12/23/18 17:30 12/23/18 17:30 Labs: Abnormal Lab Results - Last 24 Hours (Table) 12/23/18 Range/Units 17:30 Potassium 3.3 L (3.5-5.1) mmol/L Chloride 109 H (98-107) mmol/L BUN 19 H (7-17) mg/dL Glucose 67 L (74-99) mg/dL Total Protein 6.2 L (6.3-8.2) g/dL Assessment and Plan Assessment: * Left arm numbness off and on for last 3 months, unclear etiology. Rule out TIA, Doubt acute CVA. 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 * Probable muscle cramps left hand. Possible from hypokinemia. No definitive evidence of acute CVA. * X tobacco use * History of previous TIA/CVA. Plan: * CTA showed no carotid disease. Patient has occlusion of right vertebral artery, which is chronic. Patient needs to continue aspirin 325 mg daily for 3 months, then may cutback to 81 mg daily.. * Lipids are well controlled. Continue statins. * Hemoglobin A1c, B12, folate are still pending. These can be following up at her primary care physician's office. Patient has an appointment with Dr Pires on 12/31/2018. * If her symptoms in the left upper extremity persist, then would recommend an EMG and nerve conductions of left upper extremity. * Neurologically cleared for discharge.
[2018-12-25 09:48] LABS: Folate, Serum 8.1 ng/mL
[2018-12-25 10:28] LABS: Hemoglobin A1C 5.5 % (4.0-6.0)
== END 2018-12-24 15:48 | disposition home or self-care (01) ==
LOC: EC 17:02 → 3SCARD 19:16
PROVIDERS: ADMIT Internal Medicine; ATTEND Internal Medicine
DX: R20.0 Anesthesia of skin (principal); R25.2 Cramp and spasm; E78.5 Hyperlipidemia, unspecified; E87.6 Hypokalemia; F41.9 Anxiety disorder, unspecified; G25.81 Restless legs syndrome; G89.29 Other chronic pain; M54.2 Cervicalgia; I34.0 Nonrheumatic mitral (valve) insufficiency; I65.22 Occlusion and stenosis of left carotid artery; I65.01 Occlusion and stenosis of right vertebral artery; Z87.891 Personal history of nicotine dependence; Z86.14 Personal history of Methicillin resistant Staphylococcus aureus infection; Z86.73 Personal history of transient ischemic attack (TIA), and cerebral infarction without residual deficits; Z98.890 Other specified postprocedural states; Z90.710 Acquired absence of both cervix and uterus; Z79.899 Other long term (current) drug therapy
CPT/HCPCS: 99285; 36415; 93005; 80061; 80053; 84443; 82607; 82550; 82746; 83735; 84484; 85025; 85610; 85730; 83036; 73130; 71046; 70496; 70450; 70498; G0378 ×2; Q9967

== ENCOUNTER → 2019-01-12 | Outpatient (CLI) | payer MEDICARE, OTHER ==
--- NOTE | 2019-01-12 15:09 | MR ---
EXAMINATION TYPE: MR angio head wo con DATE OF EXAM: 01/12/2019 COMPARISON: CT angiogram of the head and neck 12/24/2018 HISTORY: Dizziness TECHNIQUE: Time of flight images focusing on the [place] were performed without contrast. FINDINGS: Aberrant anatomy of the [place] is again noted, there is patency of the internal carotid arteri es bilaterally. No evident aneurysm or dissection, no embolus. Hypertrophic posterior indicating sid ry on the right extends to basilar artery which is somewhat diminutive. IMPRESSION: Congenital variant anatomy present.
--- NOTE | 2019-01-12 15:12 | MR ---
MR brain without contrast HISTORY: Dizziness Multiplanar multisequence imaging through the brain, correlation MR angiogram same date, CT brain 12/23 Patient refused intravenous gadolinium There is no restricted diffusion. Corpus callosum, pituitary, cervical medullary junction, cerebellop ontine angles are normal. There are normal vascular flow voids, aberrant anatomy noted in the [place]. Increased signal is present within the [place] on the left on inversion recovery T2-weighted sequences,. Confluent and scattered hyperintensities are present within the pericallosal, periventric ular, subcortical white matter, there are likely 50 lesions present. Cortical atrophy is likely age-r elated. There is no hemorrhage or hydrocephalus. Orbits show symmetric appearance. Sinuses are well a erated. Mastoid air cells are unremarkable. IMPRESSION: Age-related changes of atrophy and probable chronic small vessel ischemia. Patient refuse d intravenous contrast.
== END | disposition home or self-care (01) ==
LOC: RADMRIMAIN 13:27
PROVIDERS: ATTEND Internal Medicine
DX: G31.1 Senile degeneration of brain, not elsewhere classified (principal)
CPT/HCPCS: 70544; 70551

== ENCOUNTER 2019-04-30 09:57 | Day surgery (SDC) | payer MEDICARE ==
[2019-04-26 13:12] VITALS: BMI 23.6
[~2019-04-30 09:57] MED LIST changes: -FERUMOXYTOL 510 MG in SODIUM CHLORIDE 0.9% 50 ML IVPB ONE; +LACTATED RINGERS 1,000 ML IV SCH; +LIDOCAINE 1% 20 ML VIAL (10MG/ML) FOR IV START INTRADERMA PRN; -SODIUM CHLORIDE 0.9% 500 ML 500 ML in EMPTY BAG 1 BAG IV PRN; -SODIUM FERRIC GLUCONAT-SUCROSE 125 MG in SODIUM CHLORIDE 0.9% 100 ML IVPB ONE
[2019-04-30 10:14] VITALS: TEMP 97.2
[2019-04-30] MEDS ORDERED: PROPOFOL 10 MG/ML 20 ML VIAL IV ONE (10:34)
[2019-04-30] MEDS ORDERED: LIDOCAINE 1% INJ 10MG/ML (20 ML MDV) ONE (10:34)
--- NOTE | 2019-04-30 11:03 | P.PCN ---
Date of Procedure: 04/30/19 Description of Procedure: BRIEF HISTORY: Patient is a 78-year-old, pleasant, female patient presenting for EGD for evaluation of anemia. Previously the patient colonoscopy performed earlier year on 08/24/2018 significant for polypectomy. The patient is seen for further evaluation of anemia. She does report daily Motrin use for arthritis. PROCEDURE PERFORMED: Esophagogastroduodenoscopy with biopsy. PREOPERATIVE DIAGNOSIS: Anemia. ESTIMATED BLOOD LOSS: Minimal. IV sedation per anesthesia. PROCEDURE: After informed consent was obtained, the patient was brought into the endoscopy unit. IV sedation was administered by Anesthesia under continuous monitoring. Initially the Olympus GIF-190 video endoscope was inserted into the mouth. Esophagus intubated without any difficulty. It was gradually advanced into the stomach and duodenum and carefully examined. The bulb and the second part of the duodenum appeared normal. The scope at this time was withdrawn to the stomach, adequately insufflated with air, and upon careful examination, mucosa of the antrum, body, cardia and the fundus appeared normal, except for multiple superficial ulcers in the antrum with biopsies taken. The scope was then withdrawn into the esophagus. The GE junction was located at 35 cm from the incisors, with a 2 cm hiatal hernia noted. The esophagus appeared normal. There were no erosions or ulcerations seen and the patient tolerated the procedure well. IMPRESSION: 1. Superficial antral ulcers, biopsied. 2. 2 cm hiatal hernia. RECOMMENDATIONS: The findings of this examination were discussed with the patient. Okay to resume diet. Await pathology from biopsies. Would recommend avoiding NSAID use. Would also recommend starting Prilosec daily.
[2019-04-30 12:03] VITALS: BP 111/67; PULSE 67; RESP 16
== END 2019-04-30 12:04 | disposition home or self-care (01) ==
LOC: ORWHC2ENDO 09:57
PROVIDERS: ATTEND Internal Medicine
DX: K29.50 Unspecified chronic gastritis without bleeding (principal); K25.9 Gastric ulcer, unspecified as acute or chronic, without hemorrhage or perforation; K44.9 Diaphragmatic hernia without obstruction or gangrene; D64.9 Anemia, unspecified; Z79.1 Long term (current) use of non-steroidal anti-inflammatories (NSAID); E78.5 Hyperlipidemia, unspecified; F41.9 Anxiety disorder, unspecified; Z86.73 Personal history of transient ischemic attack (TIA), and cerebral infarction without residual deficits; Z90.710 Acquired absence of both cervix and uterus; Z79.82 Long term (current) use of aspirin; Z79.899 Other long term (current) drug therapy
CPT/HCPCS: 88305; 43239; J2001; J2704

== ENCOUNTER 2019-10-05 | Day surgery (SDC) | payer MEDICARE | END 2019-10-05 10:42 | disposition home or self-care (01) | CPT/HCPCS: 88305; 45380; 43239; J2250; J2001; J3010; J2704 ==

== ENCOUNTER → 2020-02-22 | Outpatient (CLI) | payer MEDICARE ==
--- NOTE | 2020-02-25 07:40 | MM ---
Reason for exam: clinical finding. Last mammogram was performed 1 year and 7 months ago. History: Patient is postmenopausal. Family history of premenopausal breast cancer in sister at age 40. Reductions of both breasts, 2000. Took estrogen for 3 years. Indicated problem(s): lump or thickening in both breasts. Physical Findings: Nurse Summary: 1cm nodule in the right breast at 11 o'clock and a 0.5cm nodule in the left breast at 3 o'clock (nurse mj). MG 3D Diag Mammo W/Cad JOSE Bilateral CC and MLO view(s) were taken. Prior study comparison: July 10, 2018, bilateral MG screening mammo w CAD. May 05, 2015, mammogram. The breast tissue is almost entirely fat. Palpale abnormality corresonds to large bilateral calcifications. No suspicious calcifications are seen. These results were verbally communicated with the patient and result sheet given to the patient on 02/22/20. ASSESSMENT: Benign, BI-RAD 2 RECOMMENDATION: Routine screening mammogram of both breasts in 1 year.
== END | disposition home or self-care (01) ==
LOC: RADMAMWWP 14:34
PROVIDERS: ATTEND Internal Medicine
DX: N63.10 Unspecified lump in the right breast, unspecified quadrant (principal); N63.20 Unspecified lump in the left breast, unspecified quadrant
CPT/HCPCS: 77066; G0279; 77062

== ENCOUNTER → 2020-06-17 | Outpatient (CLI) | payer MEDICARE ==
[2020-06-17 12:16] LABS: Basophils % (A) 0 %; Eosinophils # (A) 0.1 k/uL (0-0.7); Eosinophils % (A) 2 %; HCT 41.4 % (34.0-46.0); HGB 13.1 gm/dL (11.4-16.0); Lymphocytes # (A) 1.8 k/uL (1.0-4.8); Lymphocytes % (A) 31 %; MCH 28.4 pg (25.0-35.0); MCHC 31.7 g/dL (31.0-37.0); MCV 89.6 fL (80.0-100.0); Mean Platelet Volume 7.4; Monocytes # (A) 0.4 k/uL (0-1.0); Monocytes % (A) 6 %; Neutrophils # (A) 3.5 k/uL (1.3-7.7); Neutrophils % (A) 60 %; Platelet Count 179 k/uL (150-450); RBC 4.63 m/uL (3.80-5.40); RDW 13.6 % (11.5-15.5); WBC 5.9 k/uL (3.8-10.6)
[2020-06-17 18:54] LABS: % Iron Saturation 15.11 (12.00-45.00); African American GFR (CKD) 101.9 (60.0-200.0); Albumin 3.9 g/dL (3.80-4.90); Albumin/Globulin Ratio 1.86 (1.60-3.17); Anion Gap 5.6 mmol/L (4.00-12.00); BUN/Creat Ratio 31.67 Ratio (12.00-20.00); Calcium 9.3 mg/dL (8.7-10.3); Carbon Dioxide 29.4 mmol/L (21.6-31.8); Globulin 2.1 g/dL (1.6-3.3); Non-African American GFR(CKD) 87.9 (60.0-200.0); Potassium 4.2 mmol/L (3.5-5.5); Total Bilirubin 0.5 mg/dL (0.3-1.2)
== END | disposition home or self-care (01) ==
LOC: LABWHC1 10:50
PROVIDERS: ATTEND Nurse Practitioner Gerontology
DX: D64.9 Anemia, unspecified (principal)
CPT/HCPCS: 36415; 80053; 82728; 83540; 83550; 85025

== ENCOUNTER 2020-06-24 08:04 | Day surgery (SDC) | payer MEDICARE ==
[2020-06-18 09:34] VITALS: BMI 23.7
[~2020-06-24 08:04] MED LIST changes: +LIDOCAINE 1% (10MG/ML) FOR IV START INTRADERMA PRN; -LIDOCAINE 1% 20 ML VIAL (10MG/ML) FOR IV START INTRADERMA PRN
[2020-06-24 08:46] VITALS: TEMP 97.2
[2020-06-24] MEDS ORDERED: PROPOFOL 10 MG/ML 20 ML VIAL IV ONE (10:10)
--- NOTE | 2020-06-24 10:24 | P.PCN ---
Date of Procedure: 06/24/20 Description of Procedure: BRIEF HISTORY: Patient is a 78-year-old, pleasant, female patient presenting for EGD for evaluation of GERD and anemia. Previously the patient colonoscopy performed earlier year on 08/24/2018 significant for polypectomy and EGD performed in 04/2019 significant for superficial antral ulcers in the hiatal hernia. She also underwent repeat EGD colonoscopy for anemia and no 09/2019 with findings of hiatal hernia, diverticulosis and diminutive polyp. She currently reports uncontrolled reflux. PROCEDURE PERFORMED: Esophagogastroduodenoscopy. PREOPERATIVE DIAGNOSIS: GERD, Anemia. ESTIMATED BLOOD LOSS: Minimal. IV sedation per anesthesia. PROCEDURE: After informed consent was obtained, the patient was brought into the endoscopy unit. IV sedation was administered by Anesthesia under continuous monitoring. Initially the Olympus GIF-190 video endoscope was inserted into the mouth. Esophagus intubated without any difficulty. It was gradually advanced into the stomach and duodenum and carefully examined. The bulb and the second part of the duodenum appeared normal. The scope at this time was withdrawn to the stomach, adequately insufflated with air, and upon careful examination, mucosa of the antrum, body, cardia and the fundus appeared normal. The scope was then withdrawn into the esophagus. The GE junction was located at 34 cm from the incisors, with a 3 cm hiatal hernia noted. The esophagus appeared normal. There were no erosions or ulcerations seen and the patient tolerated the procedure well. IMPRESSION: Small hiatal hernia Otherwise no significant other findings on upper endoscopy. RECOMMENDATIONS: The findings of this examination were discussed with the patient. Okay to resume diet. Continue omeprazole therapy. Would recommend avoiding NSAID use.
[2020-06-24 10:52] VITALS: BP 134/61; PULSE 63; RESP 16
== END 2020-06-24 11:00 | disposition home or self-care (01) ==
LOC: ORWHC2ENDO 08:04
PROVIDERS: ATTEND Internal Medicine
DX: K21.9 Gastro-esophageal reflux disease without esophagitis (principal); K44.9 Diaphragmatic hernia without obstruction or gangrene; D64.9 Anemia, unspecified; E78.5 Hyperlipidemia, unspecified; K57.30 Diverticulosis of large intestine without perforation or abscess without bleeding; Z79.82 Long term (current) use of aspirin; Z79.83 Long term (current) use of bisphosphonates; Z87.19 Personal history of other diseases of the digestive system; Z98.890 Other specified postprocedural states; Z90.710 Acquired absence of both cervix and uterus; Z86.73 Personal history of transient ischemic attack (TIA), and cerebral infarction without residual deficits; Z86.010 Personal history of colon polyps; Z87.11 Personal history of peptic ulcer disease
CPT/HCPCS: 43235; J2704

== ENCOUNTER → 2020-07-09 | Outpatient (CLI) | payer MEDICARE ==
--- NOTE | 2020-07-09 15:52 | BD ---
EXAMINATION TYPE: Axial Bone Density DATE OF EXAM: 07/09/2020 COMPARISON: NONE CLINICAL HISTORY: Height: 63 Weight: 144.5 FRAX RISK QUESTIONS: Alcohol (3 or more units per day): no Family History (Parent hip fracture): yes Glucocorticoids (More than 3mos): no (Ex: prednisone, prednisolone, methylprednisolone, dexamethasone, and hydrocortisone). History of Fracture in Adulthood: no Secondary Osteoporosis: 1. Type 1 Diabetes: no 2. Hyperthyroidism: no 3. Menopause before 45: no 4. Malnutrition: no 5. Chronic liver disease: no Rheumatoid Arthritis: no Current Tobacco Use: no RISK FACTORS HISTORY OF: Family History of Osteoporosis: no Active: yes Diet low in dairy products/other sources of calcium: yes Postmenopausal woman: age 52 Lost more than 2 inches in height since high school: yes MEDICATIONS: cholesterol meds, restless leg meds, bp meds, sleep aid, stomach ulcer meds Additional History: EXAM MEASUREMENTS: Bone mineral densitometry was performed using the [employer]. Bone mineral density as measured about the Lumbar spine is: ----- L1-L4(G/cm2): 1.377 T Score Values are as follows: ----- L2: 0.7 ----- L3: 1.5 ----- L4: 2.5 ----- L1-L4: 1.6 Bone mineral density has: increased % since study of: 07.10.2018 Bone mineral density about the R hip (g/cm2): 0.824 Bone mineral density about the L hip (g/cm2): 0.997 T Score values are as follows: -----R Neck: -1.5 -----L Neck: -0.3 -----R Total: -2.3 -----L Total: -1.5 Bone mineral density has: decreased -1.9 % since study of: 07.10.2018 IMPRESSION: Osteopenia NOTE: T-SCORE=SD OF THE YOUNG ADULT MEAN.
== END | disposition home or self-care (01) ==
LOC: RADBDWWP 14:27
PROVIDERS: ATTEND Internal Medicine
DX: M85.80 Other specified disorders of bone density and structure, unspecified site (principal); M81.0 Age-related osteoporosis without current pathological fracture
CPT/HCPCS: 77080

== ENCOUNTER → 2020-08-15 | Outpatient (CLI) | payer MEDICARE ==
[2020-08-15 13:20] LABS: INR 0.9 (<1.2); Partial Thromboplastin Time 23.1 sec (22.0-30.0); Prothrombin Time 9.6 sec (9.0-12.0)
== END | disposition home or self-care (01) ==
LOC: LABPAT 12:13
PROVIDERS: ATTEND Orthopaedic Surgery
DX: Z01.818 Encounter for other preprocedural examination (principal); Z01.812 Encounter for preprocedural laboratory examination
CPT/HCPCS: 85610; 85730; 87070

== ENCOUNTER 2020-08-25 13:53 | Day surgery (SDC) | payer MEDICARE ==
[2020-08-19 10:27] VITALS: BMI 23.7
[~2020-08-25 13:53] MED LIST changes: +ACETAMINOPHEN TAB 500 MG TAB PO PRN; +GABAPENTIN 300 MG CAP PO PRN; -LACTATED RINGERS 1,000 ML IV SCH; -LIDOCAINE 1% (10MG/ML) FOR IV START INTRADERMA PRN; +MELOXICAM 7.5 MG TAB PO PRN; +ROPIVACAINE/EPI/CLONIDINE/KET 50 ML SYRINGE MISCELLANE PRN; +TRANEXAMIC ACID 1,000 MG in SODIUM CHLORIDE 0.9% 100 ML IVPB PRN
[2020-08-25] MEDS ORDERED: ONDANSETRON 4 MG/2 ML VIAL ONE (14:10)
[2020-08-25] MEDS ORDERED: LIDOCAINE 1% (10MG/ML) FOR IV START INTRADERMA PRN (14:17)
[2020-08-25] MEDS ORDERED: ONDANSETRON 4 MG/2 ML VIAL IVP ONE (14:17)
[2020-08-25] MEDS ORDERED: MIDAZOLAM 2 MG/2 ML VIAL IV PRN (14:17)
[2020-08-25] MEDS ORDERED: HYDROmorphone 0.5 MG/0.5 ML SYRINGE IVP PRN ×3 (14:17→14:33)
[2020-08-25] MEDS ORDERED: DEXAMETHASONE SOD PHOSPHATE 4 MG/ML 1 ML VIAL IV ONE (14:17)
[2020-08-25] MEDS: LACTATED RINGERS 1,000 ML IV SCH (14:32)
[2020-08-25] MEDS ORDERED: MAGNESIUM HYDROXIDE 2,400 MG/10 ML CUP PO PRN (14:33)
[2020-08-25] MEDS ORDERED: HYDROcodone/APAP 5-325MG 1 EACH TAB PO PRN (14:33)
[2020-08-25] MEDS ORDERED: HYDROmorphone 0.2 MG/1 ML SYRINGE IVP PRN (14:33)
[2020-08-25] MEDS ORDERED: ONDANSETRON 4 MG/2 ML VIAL IVP PRN (14:33)
[2020-08-25] MEDS ORDERED: NALOXONE 0.4 MG/ML 1 ML VIAL IV PRN (14:33)
[2020-08-25] MEDS ORDERED: SODIUM CHLORIDE 0.9% 100 ML BAG ONE (14:40)
[2020-08-25] MEDS ORDERED: fentaNYL (PF) 50 MCG/ML 2 ML AMP ONE (14:40)
[2020-08-25] MEDS ORDERED: HEPARIN SODIUM,PORCINE 10,000 UNIT/ML 1 ML VIAL ONE (14:40)
[2020-08-25] MEDS ORDERED: MIDAZOLAM 2 MG/2 ML VIAL ONE (14:40)
[2020-08-25] MEDS ORDERED: PROPOFOL 10 MG/ML 20 ML VIAL IV ONE (14:40)
[2020-08-25] MEDS ORDERED: SODIUM CHLORIDE 0.9% IRRIG 1,000 ML BTL IRRIGATION ONE (14:40)
[2020-08-25] MEDS ORDERED: TRANEXAMIC ACID 1,000 MG/10 ML VIAL ONE (14:40)
[2020-08-25] MEDS ORDERED: ceFAZolin 3,000 MG in SODIUM CHLORIDE 0.9% IRRIGATIO 3,000 ML IRRIGATION ONE (14:44)
--- NOTE | 2020-08-25 15:59 | P.OP ---
Date of Procedure: 08/25/20 Preoperative Diagnosis: Severe osteoarthritis left hip Postoperative Diagnosis: Severe osteoarthritis left hip Procedure(s) Performed: Left total hip arthroplasty with a direct anterior approach Implants: [employer]hew Polarstem standard size 5 [employer]hew R3, 3 hole hemispherical acetabular shell, 54 mm [employer]hew Reflection 6.5 mm cancellus screw, 20 mm 2 [employer] R3, XLPE 20 acetabular liner [employer]hew Oxinium femoral head 36 m, +0 All components were press-fit. The articulation is Oxinium on polyethylene. Anesthesia: spinal Surgeon: Gerry Rodríguez Electro Mechanical Technologist #1: Arti Henry Estimated Blood Loss (ml): 100 Pathology: other (Femoral head) Condition: stable Disposition: PACU Indications for Procedure: After failure of conservative treatment we discussed the surgical and nonsurgical treatment options at length. Patient wishes to proceed with a total hip arthroplasty with a direct anterior approach. Complications specific to this procedure were discussed at length, including but not limited to infection, leg length discrepancy, dislocation, nerve injury, and fracture. Covid-19 was also discussed at length with the patient, and they are aware of the current policies and procedures. The patient was given the option of delaying surgery, but they elect to proceed knowing these risks. Patient is aware of all these complications and informed consent was obtained Operative Findings: The operative findings are consistent with severe osteoarthritis of the left hip Description of Procedure: Patient was seen and evaluated in the preoperative area and the consent was reviewed. The operative site was marked with a skin marker. The patient was then brought to the operating room and given preoperative antibiotics i ntravenously. 1 g of Tranexamic acid was also given intravenously. A spinal anesthetic was administered by the anesthesia department. The patient was then placed on the [place] table with the bony prominences well-padded. The hip area was then prepped with a ChloraPrep solution and draped in the usual sterile fashion. A universal timeout was then performed, which confirmed the patient's name, s urgical site, ALLERGIES, and procedure being performed on the consent. Next the incision site was located at the flexion crease of the left hip. The skin and subcutaneous tissues were sharply incised. Incision was carefully dissected down to the fascia overlying the tensor fascia cindy muscle. This fascia was then incised in line with the incision. Care was taken to stay laterally in order to avoid injuring the lateral femoral cutaneous nerve. Next, using blunt finger dissection, the tensor fascia cindy muscle was dissected off its investing fascia. The muscle was then carefully retracted laterally with a cobra retractor over the lateral neck of the femur. Next, the circumflex vessels were identified and cauterized using the AquaMantis device. The anterior hip capsule was then exposed. The capsule was then opened and an inverted T fashion. Cobra retractors were then placed intracapsularly. The retractors were maintained intracapsular throughout the procedure. The proximal femur was then visualized. A small amount of traction was placed on the leg. The femoral neck was then osteotomized appropriate level above the lesser trochanter. A small wedge of bone was then removed from the remaining femoral head. Next, using a corkscrew the femoral head was removed from the acetabulum. On gross visual inspection, the femoral head had complete loss of articular cartilage and multiple periarticular osteophytes. The femoral head was then measured. Attention was then turned to the acetabulum. The acetabulum was exposed and any remaining labrum was excised. Sequential r eaming of the acetabulum was performed using fluoroscopic guidance until there was a good bed of bleeding cancellus bone. When the appropriate size was reached, a trial was then placed. The position and fit of the trial was checked with fluoroscopy. The trial was then removed. Then, using fluoroscopic guidance, the final implant was impacted at 20 of anteversion and 40 of abduction, and fully seated in the acetabulum. 2 screws were then placed in the acetabulum. Again fluoroscopy was used to check position of the screws. Next, the liner was then impacted, with a 20 elevated liner located in the anterior superior quadrant. Component locking was confirmed. Attention was then directed to the femur. With the aid of the [place] table, the femur was externally rotated to approximately 130, extended, and adducted under the opposite leg. A side hook was then placed under the proximal femur, and the side hook elevator was used to elevate the proximal femur while releasing the capsule. Retractors were then placed. A capsular release was performed, as well as a release of the conjoined tendon, which afforded excellent visualization of the proximal femur. Next, a box osteotome was used to lateralize the proximal femur. A roustabout hand was then used to locate the femoral canal. Sequential broaching was then performed with appropriate size which afforded excellent fixation in the proximal femur. A trial was then placed with appropriate head and neck, and the hip was gently reduced with the aid of the [place] table. Fluoroscopy was then used to check position of the components, as well as to ensure equal leg lengths. The hip was then gently dislocated and the trials were then removed. Final implants were then impacted and the hip was again reduced. Final fluoroscopic x-rays confirmed that the components were in anatomic position, as well as equal leg lengths. The hip was also taken through range of motion, and found to be stable. The hip was then copiously irrigated with antibiotic solution with pulsatile lavage. The hip was then irrigated with Irrisept solution. The soft tissues were then injected with a ropivacaine solution, which consisted of 246.25 mg of ropivacaine, 0.5 mg of epinephrine, 30 mg of Toradol, 80 g of clonidine, and 48.45 mL of sterile water, for a total of 100 mL of fluid injected. A second dose of 1 g of Tranexamic acid was also given intravenously. Any blood collected by [employer]ver was then returned to the patient at this time. The fascia was then closed with 2-0 strata fix suture. The subcutaneous tissue was closed with 3-0 Vicryl. The subcuticular tissue was closed with 3-0 strata fix suture. The skin was then closed with Exofin skin glue. After the glue and dried, and Optifoam silver impregnated dressing was applied. The patient was then transferred to the recovery room in stable condition. The review assistant NAMITA Su was required due to the complexity of surgery, and the need for skilled surgical dressing maker for positioning, draping, exposure, retraction, and closure of the wound.
[2020-08-25 16:33] LABS: Appearance,Urine Cloudy (Clear); Bacteria,Urine Rare /hpf; Bilirubin,Urine Negative (Negative); Blood,Urine Negative (Negative); Color,Urine Yellow; Glucose,Urine (UA) Negative (Negative); Ketones,Urine Negative (Negative); Leukocyte Esterase,Urine Small (Negative); Mucus,Urine Few /hpf; Nitrite,Urine Negative (Negative); Protein,Urine Trace (Negative); Specific Gravity,Urine 1.027 (1.001-1.035); Squamous Epithelial Cell,Urine 2 /hpf (0-4); WBC,Urine 4 /hpf (0-5)
--- NOTE | 2020-08-25 16:49 | XR ---
EXAMINATION TYPE: XR Hip Limited LT DATE OF EXAM: 08/25/2020 COMPARISON: NONE HISTORY: Postop TECHNIQUE: Single view FINDINGS: There is left hip prosthesis. Components appear in anatomic position. IMPRESSION: No complicating process.
[2020-08-25] MEDS ORDERED: LACTATED RINGERS 1,000 ML IV ONE (17:11)
[2020-08-25] MEDS ORDERED: ALPRAZolam 0.25 MG TAB PO PRN (18:23)
[2020-08-25] MEDS ORDERED: GABAPENTIN 300 MG CAP PO SCH (18:30)
[2020-08-25] MEDS: SODIUM CHLORIDE 0.9% 1,000 ML IV SCH (18:41)
[2020-08-25] MEDS: HYDROcodone/APAP 5-325MG 1 EACH TAB PO PRN (19:14)
[2020-08-25] MEDS: ASPIRIN 325 MG TAB PO SCH (20:10)
[2020-08-25] MEDS ORDERED: MELATONIN 5 MG TABLET PO PRN (21:00)
[2020-08-25] MEDS ORDERED: SENNOSIDES-DOCUSATE SODIUM 1 EACH TAB PO SCH (21:00)
[2020-08-25] MEDS ORDERED: PARoxetine 20 MG TAB PO SCH (21:00)
[2020-08-26] MEDS: SODIUM CHLORIDE 0.9% 1,000 ML IV SCH (02:34)
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
[2020-08-26] MEDS: HYDROcodone/APAP 5-325MG 1 EACH TAB PO PRN ×2 (07:19→14:29)
[2020-08-26] MEDS: ASPIRIN 325 MG TAB PO SCH (07:25)
[2020-08-26] MEDS ORDERED: PANTOPRAZOLE 40 MG TABLET PO SCH (07:30)
--- NOTE | 2020-08-26 08:21 | XR ---
Fluoroscopy History: LT HIP ANT LT ANT HIP. 46 SECS FL. 2 IMAGES SAVED Is
[2020-08-26] MEDS ORDERED: ASCORBIC ACID 500 MG TAB PO SCH (09:00)
[2020-08-26] MEDS ORDERED: LOSARTAN 50 MG TAB PO SCH (09:00)
[2020-08-26] MEDS ORDERED: MELOXICAM 7.5 MG TAB PO SCH (09:00)
[2020-08-26] MEDS ORDERED: CALCIUM CARBONATE 500 MG CHEWABLE PO SCH (09:00)
[2020-08-26] MEDS ORDERED: [UNRECOGNIZED DRUG - OTHER] PO SCH (09:00)
[2020-08-26] MEDS ORDERED: ATORVASTATIN 40 MG TAB PO SCH (09:00)
[2020-08-26 10:30] LABS: Basophils # (A) 0.01 X 10*3/uL (0.00-0.10); Basophils % (A) 0.1 %; Eosinophils # (A) 0.02 X 10*3/uL (0.04-0.35); Eosinophils % (A) 0.2 %; HCT 32.7 % (37.2-46.3); HGB 10.1 g/dL (12.0-15.0); Lymphocytes # (A) 1.23 X 10*3/uL (0.90-5.00); Lymphocytes % (A) 14.8 %; MCHC 30.9 g/dL (32.0-37.0); MCV 90.6 fL (80.0-97.0); Mean Platelet Volume 11.3 fL (9.5-12.2); Monocytes # (A) 0.85 X 10*3/uL (0.20-1.00); Monocytes % (A) 10.2 %; Neutrophils # (A) 6.17 X 10*3/uL (1.80-7.70); Neutrophils % (A) 74.5 %; Platelet Count 165 X 10*3/uL (140-440); RBC 3.61 X 10*6/uL (4.10-5.20); RDW 13.4 % (11.5-14.5)
--- NOTE | 2020-08-26 10:43 | P.DS ---
Providers Expected date of discharge: 08/26/20 Attending physician: Gerry Rodríguez Consults: 08/25/20 14:33 Consult Physician Routine Consulting Provider: Bryant Elmore Reason/Comments: medical management Do you want consulting provider notified?: Yes Primary care physician: Colleen Pirse MD Hospital Course: This is a 79-year-old female with known history of degenerative arthritis of the left hip. The patient presented for evaluation as an outpatient. After discussion and consideration patient elects to proceed with total hip arthroplasty. The patient is seen preoperatively by Dr. Rodríguez and medically cleared for surgery by their primary care physician. Patient is admitted to [facility] on 08/25/2020 for total hip arthroplasty. The procedure is performed without complication or sequelae. The patient is doing well postoperatively. Labs and vital signs are stable on day of discharge. On day of discharge patient's hip incision is healing well. There is minimal erythema. There is no drainage noted at this time. There is minimal soft tissue swelling to the hip and thigh. Patient has full foot and ankle motion without difficulty or pain. Calf is soft and nontender to palpation. Neurovascular status to the left lower extremity is intact. Patient is discharged home in good condition. Opioid start talking form is reviewed and signed. Please see med rec for accurate list of home medications. Plan - Discharge Summary Discharge Rx Participant: Yes New Discharge Prescriptions: New Aspirin 325 mg PO BID #60 tab HYDROcodone/APAP 5-325MG [[place] 5-325] 1 - 2 tab PO Q6HR PRN #48 tab PRN Reason: Pain Sennosides [Senokot] 2 tab PO DAILY PRN #60 tablet PRN Reason: Constipation Continue PARoxetine [Paxil] 40 mg PO HS Atorvastatin [Lipitor] 40 mg PO DAILY rOPINIRole HCL [Requip] 1 mg PO TID ALPRAZolam [Xanax] 0.25 mg PO BID PRN PRN Reason: Anxiety Alendronate Sodium [Fosamax] 70 mg PO MO Omeprazole [PriLOSEC] 40 mg PO AC-BRKFST Ascorbic Acid [Vitamin C] 500 mg PO DAILY Gabapentin [Neurontin] 300 mg PO PC-SUPPER Losartan Potassium 50 mg PO DAILY Comfort 3 Gummies 100 mg PO DAILY Melatonin 20 mg PO HS PRN PRN Reason: sleep Fish Oil(Dose Unknown) 1 tab PO DAILY Calcium Gummies 1,000 mg PO DAILY traMADol HCL [Ultram] 50 mg PO Q4-6H PRN PRN Reason: Pain Discharge Medication List Atorvastatin [Lipitor] 40 mg PO DAILY 08/04/18 [History] PARoxetine [Paxil] 40 mg PO HS 08/04/18 [History] rOPINIRole HCL [Requip] 1 mg PO TID 08/04/18 [History] ALPRAZolam [Xanax] 0.25 mg PO BID PRN 08/23/18 [History] Alendronate Sodium [Fosamax] 70 mg PO MO 08/23/18 [History] Omeprazole [PriLOSEC] 40 mg PO AC-BRKFST 10/03/19 [History] Ascorbic Acid [Vitamin C] 500 mg PO DAILY 08/19/20 [History] Calcium Gummies 1,000 mg PO DAILY 08/19/20 [History] Fish Oil(Dose Unknown) 1 tab PO DAILY 08/19/20 [History] Gabapentin [Neurontin] 300 mg PO PC-SUPPER 08/19/20 [History] Losartan Potassium 50 mg PO DAILY 08/19/20 [History] Melatonin 20 mg PO HS PRN 08/19/20 [History] Comfort 3 Gummies 100 mg PO DAILY 08/19/20 [History] traMADol HCL [Ultram] 50 mg PO Q4-6H PRN 08/19/20 [History] Aspirin 325 mg PO BID #60 tab 08/26/20 [Rx] HYDROcodone/APAP 5-325MG [[place] 5-325] 1 - 2 tab PO Q6HR PRN #48 tab 08/26/20 [Rx] Sennosides [Senokot] 2 tab PO DAILY PRN #60 tablet 08/26/20 [Rx] Follow up Appointment(s)/Referral(s): Colleen Pires MD [Primary Care Provider] - 09/02/20 2:00 pm [facility], [NON-STAFF] - Gerry Rodríguez DO [Doctor of Osteopathic Medicine] - 09/08/20 2:25 pm Lianet Stein [NON-STAFF] - (Please call Emil'juliann if you have questions regarding your new walker. ) Activity/Diet/Wound Care/Special Instructions: Weightbearing as tolerated with walker. Leave dressing intact. Dressing may be removed by home care nurse or by patient in 10 days. May shower with dressing on. Please take aspirin 325mg twice daily for 30 days to prevent blood clots. Recommend use of compression stockings daily until follow up to help prevent swelling and blood clots. May remove at night before sleeping. Please follow-up with [facility] in 2 weeks and call with any questions or concerns, . Discharge Disposition: HOME WITH HOME HEALTH SERVICES
--- NOTE | 2020-08-26 10:54 | P.PN ---
Subjective Progress Note Date: 08/26/20 HISTORY OF PRESENT ILLNESS 79-year-old female one of Dr. hwang's patient with past medical history of CVA, hypertension, hyperlipidemia, atherosclerotic heart disease who is known to have history of chronic lower back pain along with anemia and peptic ulcer disease who had suffered from severe arthritis of the left hip for the last few years with failure to conservative management. Patient was seen orthopedic and scheduled for elective left total hip arthroplasty, surgery was done successfully with no major complication. Patient was admitted to the floor afterward doing well hemodynamically stable not having any major complaint pain is well managed at the time. 08/26: Vision states she did not sleep last night. She complains of some soreness to the left hip. Dressing in place with no breakthrough bleeding. She states she has been up and ambulated without difficulty. She denies chest pain or shortness of breath. Patient states that she has 3 sisters in the [place] area that will be helping her after discharge. Patient has been afebrile, heart rate 69, blood pressure 123/63, pulse ox 100% on room air. WBC 8.3, hemoglobin 10.1. Patient is scheduled for discharge home today. Medication reconciliation completed. Patient is on aspirin for DVT prophylaxis. REVIEW OF SYSTEMS Constitutional: No fever, no chills, no night sweats. No weight change. No weakness, fatigue or lethargy. No daytime sleepiness. EENT: No headache. No blurred vision or double vision, no loss of vision. No loss of Hearing, no ringing in the ears, no dizziness. No nasal drainage or congestion. No epistaxis. No sore throat. Lungs: No shortness of breath, cough, no sputum production. No wheezing. Cardiovascular: No chest pain, no lower extremity edema. No palpitations. No paroxysmal nocturnal dyspnea. No orthopnea. No lightheadedness or dizziness. No syncopal episodes. Abdominal: No abdominal pain. No nausea, vomiting. No diarrhea. No constipation. No bloody or tarry stools. No loss of appetite. Genitourinary: No dysuria, increased frequency, urgency. No urinary retention. Musculoskeletal: No myalgias. No muscle weakness, no gait dysfunction, no frequent falls. No back pain. No neck pain. Soreness to the left hip. Integumentary: No wounds, no lesions. No rash or pruritus. No unusual bruising. No change in hair or nails. Neurologic: No aphasia. No facial droop. No change in mentation. No head injury. No headache. No paralysis. No paresthesia. Psychiatric: No depression. No anxiety. No mood swings. Endocrine: No abnormal blood sugars. No weight change. No excessive sweating or thirst. No cold intolerance. PHYSICAL EXAMINATION General Appearance: Alert, cooperative, no distress, appears stated age. Resting in bed in no acute distress. Neck HEENT: Supple, no lymphadenopathy, no thyroid enlargement, no carotid bruits. Lungs: Clear to auscultation without crackles or wheezes no rhonchi, no deformity. Chest Wall: Chest wall normal expansion with deep inspiration no tenderness and no deformity was found on exam, no costochondral pain or discomfort. Heart: Regular rate and rhythm, S1, S2 normal, no murmur, rub or gallop. Back: Symmetric, no curvature, ROM normal, no CVA tenderness. Abdomen: Soft, non-tender, bowel sounds active all four quadrants, no masses, no organomegaly. Extremities: Extremities normal, atraumatic, no cyanosis or edema. Small dressing in place to the left hip.. Pulses: 2+ and symmetric. Skin: Skin color, texture, tugor normal, no rashes or lesions. Neurologic: Alert oriented x3 cranial nerves II through XII intact, no motor deficit, no abnormal balance or gait. ASSESSMENT AND PLAN 1 post left total hip arthroplasty: Stable so far resume home meds, watch patient with chronic status, continue to watch and control pain, DVT prophylaxis with aspirin. 2 hypertension: Continue patient on losartan 50 mg a day. 3 hyperlipidemia: Remain on atorvastatin 40 mg a day resume medication at this point. 4 restless leg syndrome: Remain on Requip 1 mg 3 times a day. 5 neuropathy: Has been on gabapentin 300 mg at supper time. 6 history of osteoporosis: Has been on Fosamax along with calcium and vitamin D. 7 chronic history of depression: Has been on Paxil 40 mg daily. 8 GERD/GI prophylaxis: Patient remain on omeprazole 40 mg before meals breakfast. 9 DVT prophylaxis: Will continue patient on full aspirin at this point. CODE STATUS: Full code. DISCHARGE PLAN Home with [facility] Impression and plan of care have been directed as dictated by the signing phy sician. Ness Tellez nurse practitioner acting as scribe for signing physician. Objective - Vital Signs Vital signs: Vital Signs Temp 97.7 F 08/26/20 01:43 Pulse 74 08/26/20 01:43 Resp 17 08/25/20 18:10 BP 100/54 08/26/20 01:43 Pulse Ox 98 08/26/20 01:43 Intake & Output 08/25/20 08/26/20 08/26/20 18:59 06:59 18:59 Intake Total 1001 Output Total 100 Balance 901 Weight 68.6 kg Intake: IV 1001 Output: Estimated Blood Loss 100 Other: Voiding Method Toilet # Voids 2 - Labs CBC & Chem 7: 08/26/20 06:46 Labs: Abnormal Lab Results - Last 24 Hours (Table) 08/25/20 Range/Units 14:50 Urine Appearance Cloudy H (Clear) Urine Protein Trace H (Negative) Ur Leukocyte Esterase Small H (Negative) Urine Bacteria Rare H (None) /hpf Urine Mucus Few H (None) /hpf
[2020-08-26 15:27] VITALS: BP 94/52; PULSE 84; RESP 18; TEMP 98.5
[2020-08-26] MEDS: LACTATED RINGERS 1,000 ML IV SCH (15:31)
== END 2020-08-26 15:40 | disposition home health service (06) ==
LOC: OR 13:53 → 4SSUR 17:01 → OR 08-26 15:40
PROVIDERS: ATTEND Orthopaedic Surgery
DX: M16.12 Unilateral primary osteoarthritis, left hip (principal); M25.752 Osteophyte, left hip; I10 Essential (primary) hypertension; E78.5 Hyperlipidemia, unspecified; Z86.73 Personal history of transient ischemic attack (TIA), and cerebral infarction without residual deficits; I25.10 Atherosclerotic heart disease of native coronary artery without angina pectoris; G89.29 Other chronic pain; M54.5 Low back pain; G25.81 Restless legs syndrome; G62.9 Polyneuropathy, unspecified; M81.0 Age-related osteoporosis without current pathological fracture; F32.9 Major depressive disorder, single episode, unspecified; K21.9 Gastro-esophageal reflux disease without esophagitis; Z97.3 Presence of spectacles and contact lenses; Z90.710 Acquired absence of both cervix and uterus; Z98.890 Other specified postprocedural states; Z87.891 Personal history of nicotine dependence; Z79.899 Other long term (current) drug therapy; Z87.11 Personal history of peptic ulcer disease; Z98.41 Cataract extraction status, right eye; Z98.42 Cataract extraction status, left eye; Z90.49 Acquired absence of other specified parts of digestive tract; F41.9 Anxiety disorder, unspecified; D50.9 Iron deficiency anemia, unspecified; Z82.49 Family history of ischemic heart disease and other diseases of the circulatory system; Z80.3 Family history of malignant neoplasm of breast; Z80.42 Family history of malignant neoplasm of prostate
CPT/HCPCS: 93005; 97161; 97165; 86891; 85025; 81001; 73501; 27130; C1776; J1100; J0690 ×3; J2405; 86850; 86900; 86901; 88300

== ENCOUNTER → 2021-06-03 | Outpatient (CLI) | payer MEDICARE ==
[~2021-06-03] MED LIST changes: -ACETAMINOPHEN TAB 500 MG TAB PO PRN; -GABAPENTIN 300 MG CAP PO PRN; -MELOXICAM 7.5 MG TAB PO PRN; -ROPIVACAINE/EPI/CLONIDINE/KET 50 ML SYRINGE MISCELLANE PRN; +SODIUM CHLORIDE 0.9% 500 ML 500 ML in EMPTY BAG 1 BAG IV PRN; +SODIUM FERRIC GLUCONAT-SUCROSE 125 MG in SODIUM CHLORIDE 0.9% 100 ML IVPB NR; -TRANEXAMIC ACID 1,000 MG in SODIUM CHLORIDE 0.9% 100 ML IVPB PRN
[2021-06-03 12:03] VITALS: BP 157/70; PULSE 79; RESP 16; TEMP 98.2
== END | disposition home or self-care (01) ==
LOC: PROCWHC3 11:52
PROVIDERS: ATTEND Internal Medicine
DX: D64.9 Anemia, unspecified (principal)
CPT/HCPCS: 96365; J2916

== ENCOUNTER → 2021-07-02 | Outpatient (CLI) | payer MEDICARE ==
[~2021-07-02] MED LIST changes: +CASIRIVIMAB (REGN10933) (EUA) 600 MG, IMDEVIMAB (REGN10987) (EUA) 600 MG in SODIUM CHLO... IVPB NR; +SODIUM CHLORIDE 0.9% 50 ML IVPB NR; -SODIUM FERRIC GLUCONAT-SUCROSE 125 MG in SODIUM CHLORIDE 0.9% 100 ML IVPB NR; +diphenhydrAMINE 50 MG/ML 1 ML VIAL IVP ONE; +methylPREDNISolone SOD SUCCI 125 MG/2 ML VIAL IV STA
[2021-07-02 11:12] VITALS: TEMP 97.3
[2021-07-02 12:36] VITALS: RESP 18
[2021-07-02 14:33] VITALS: BP 177/79; PULSE 61
== END | disposition home or self-care (01) ==
LOC: PROCWHC3 10:02
PROVIDERS: ATTEND Internal Medicine
DX: U07.1 COVID-19 (principal)
CPT/HCPCS: 96360; 96375; J1200; J2930; Q0244; G0463; M0243; 99212

== ENCOUNTER → 2021-07-15 | Outpatient (CLI) | payer MEDICARE ==
[~2021-07-15] MED LIST changes: -CASIRIVIMAB (REGN10933) (EUA) 600 MG, IMDEVIMAB (REGN10987) (EUA) 600 MG in SODIUM CHLO... IVPB NR; -SODIUM CHLORIDE 0.9% 50 ML IVPB NR; +SODIUM FERRIC GLUCONAT-SUCROSE 125 MG in SODIUM CHLORIDE 0.9% 100 ML IVPB NR; -diphenhydrAMINE 50 MG/ML 1 ML VIAL IVP ONE; -methylPREDNISolone SOD SUCCI 125 MG/2 ML VIAL IV STA
[2021-07-15 13:12] VITALS: BP 164/68; PULSE 85; RESP 16; TEMP 97.9
== END | disposition home or self-care (01) ==
LOC: PROCWHC3 12:29
PROVIDERS: ATTEND Internal Medicine
DX: D64.9 Anemia, unspecified (principal)
CPT/HCPCS: 96365; J2916

== ENCOUNTER → 2021-09-10 | Outpatient (CLI) | payer MEDICARE ==
[2021-09-10 13:11] VITALS: BP 143/73; PULSE 82; RESP 16; TEMP 98.1
--- NOTE | 2021-09-10 13:15 | P.CON ---
Consult Note - . Consult date: 09/10/21 Assessment/Plan:: HISTORY OF PRESENT ILLNESS: 80 year old female as a referral from Dr. Pemberton presents today with lower back pain due to disc bulges, spondylolisthesis, severe spinal canal stenosis, bilateral neuroforaminal stenoses, facet arthropathy and right L5 encroachment for an evaluation. Patient states her pain level is 8 out of 10 in intensity, constant, dull, achy in the lower half of her lumbar spine with radiation to the bilateral lower extremities. She states the pain escalates as high as 10 out of 10 in intensity with activity or towards the evening. Pain is relieved with medications ([place] [facility] and Neurontin), injections (trial of lumbar facet blocks of the medial branches at Dr. Pemberton's office), physical therapy, chiropractic treatments in the past, home stretching regimen, use of a walker for ambulatory assistance, repositioning and rest. Past Medical History: CVA/TIA, GERD/Reflux, Hypertension, Osteoarthritis (OA), Iron Deficiency Anemia, Anxiety Past Surgical History: Breast Surgery, Cholecystectomy, Hernia Repair, H ysterectomy, Orthopedic Surgery, HEART MURMUR, TIA (1998), Hiatal Hernia Repair, Colonoscopy, Cystocele repair, bilateral Cataracts, bilateral breast reduction, R shoulder RCT rEPAIR, L HUIP Social History: Former 30 pack/ yr Tobacco user. No ETOH abuse. No Illicit drug use. Smoking Status: Former smoker Family History: Mother- CA. Father- Prostate CA. Sister- Breast CA All: NKDA Meds: See list REVIEW OF ORGAN SYSTEMS: CONSTITUTIONAL: No fevers or chills. No recent weight loss. HEENT: No visual acuity loss, eye pain, difficulties with hearing. No nosebleeds. No difficulty swallowing. RESPIRATORY: Denies any troubles with breathing or dyspnea on exertion. CARDIOVASCULAR: Denies any chest pain, palpitations, or recent heart attacks. GASTROINTESTINAL: Denies fatty food intolerance. Has change in bowel habits and gas bloat. GENITOURINARY: Denies any blood in urine. Has increased urinary frequency. NEUROLOGICAL: + numbness and tingling along the distal extremities. No seizure disorders or headaches. MUSCULOSKELETAL: + back pain SKIN: No skin cancer. No rash. PSYCHIATRIC: Denies current depression or suicidal thoughts. ENDOCRINE: Denies current thyroid disorders. Denies any blood sugar glucose intolerance. HEME/LYMPHATIC: Denies any lumps and bumps around the neck. History of deep venous thrombosis. ALLERGY/IMMUNOLOGY: No immunoglobulin therapy. No immune deficiencies. BREAST: Denies current breast lumps, pain or nipple discharge. Physical Examinations : Constitutional : Cooperative , not in acute distress . HEENT: Neck supple. No Lymphadenopathy. Normal thyroid size . Eyes no ptosis , no icterus, no photophobia . Hearing intact. Normal oropharynx. No Thrush. Respiratory : Chest clear to auscultations bilaterally. No wheezing. No rhonchi. Cardiovascular : Regular rate and rhythm , S1 / S2. No S3 . No S4. Gastrointestinal : Abdomen soft. No tenderness. Bowel sounds x 4. No organomegaly . Genitourinary : Deferred. Neurologic : Cranial nerve II to XII intact. No focal neurological deficits. Psychiatric : alert & oriented x 3. Matching mood & appropriate affect. Judgment & insight intact. Lymphatic No Lymphadenopathy. Musculoskeletal : Cervical Spine Motor strength in the deltoid and biceps: Normal right side. Normal Left side Motor strength biceps and the wrist extensors: Normal right side . Normal left side Motor strength in the triceps muscle: Normal right side. Normal left side Deep tendon reflexes: Normal at the biceps. Normal at Brachioradialis. Normal at triceps Cervical facet loading test: positive bilaterally Spurling test: positive bilaterally Neck distraction test: positive bilaterally Tara sign: positive bilaterally Lumbar spine Motor strength lower extremities ,thigh and legs 5/5 Right side , 5/5 Left side Deep tendon reflexes : Normal Knee Jerk. Normal Ankle Jerk Vertebral body tenderness over L4, L5 Lumbar facet Loading Test: positive Right / positive Left over L4-L5, L5-S1 with jump reflex Range of motion of the lumbar spine Flexion 60 degrees, extension 10 degrees Straight Leg Raise test: Left/ Right positive at degree Jenna test: positive right / positive left. Severe tenderness over the Sacroiliac joint on the Right / Left sides Gaenslen test: positive bilaterally Seated flexion test: positive bilaterally. Assessment/ Plan : Recommendation of bilateral RFA of L3-L5 Risks, benefits of procedure discussed and patient verbalized understanding. Denies aspirin or anti- coagulant use. All questions answered. I have spent greater than 50 minutes on patient care today. Dr Partida was available by phone for the evaluation of this patient. The time was used to review the medical records including relevant urine studies and Prescription history (MAPs), review of the available imaging, evaluation and examination of the patient, coordination of care with the medical staff and if applicable referring physicians, as well as creation of the medical record PQRS Measure Charge Sheet Mode of Arrival: Ambulatory - Pain Location Lower Back Non-Pharmacological Interventions: Chiropractic Treatment, Home Exercise, Inactivity, Physical Therapy, Position/Reposition, Stretching Pharmacological Interventions: Block, PRN Medication, Scheduled Medication PQRS Narrative: Smoking Status Former smoker Blood Pressure 143/73 Pain Intensity [Lower Back] 8 Scale Used Numeric (1 - 10) Home Medications: Ambulatory Orders Atorvastatin [Lipitor] 40 mg PO DAILY 08/04/18 PARoxetine [Paxil] 40 mg PO HS 08/04/18 rOPINIRole HCL [Requip] 1 mg PO TID 08/04/18 ALPRAZolam [Xanax] 0.25 mg PO BID PRN 08/23/18 Alendronate Sodium [Fosamax] 70 mg PO MO 08/23/18 Omeprazole [PriLOSEC] 40 mg PO AC-BRKFST 10/03/19 Gabapentin [Neurontin] 300 mg PO PC-SUPPER 08/19/20 Losartan Potassium 50 mg PO DAILY 08/19/20 Melatonin 20 mg PO HS PRN 08/19/20 Ergocalciferol (Vitamin D2) [Vitamin D2 (400 Iu)] 10 mcg PO DAILY 12/02/20
== END | disposition home or self-care (01) ==
LOC: PNWHC3 12:40
PROVIDERS: ATTEND Physician Assistant Medical
DX: M47.817 Spondylosis without myelopathy or radiculopathy, lumbosacral region (principal); M41.26 Other idiopathic scoliosis, lumbar region; M43.16 Spondylolisthesis, lumbar region; M54.16 Radiculopathy, lumbar region
CPT/HCPCS: 99211

== ENCOUNTER 2021-09-25 10:32 | Day surgery (SDC) | payer MEDICARE ==
[2021-09-25 10:53] VITALS: RESP 16; TEMP 98.5
[2021-09-25] MEDS ORDERED: LIDOCAINE 1% (10MG/ML) FOR IV START INTRADERMA ONE (10:55)
[2021-09-25] MEDS ORDERED: LACTATED RINGERS 1,000 ML IV ONE (10:55)
[2021-09-25] MEDS ORDERED: MIDAZOLAM 2 MG/2 ML VIAL ONE (11:24)
[2021-09-25] MEDS ORDERED: fentaNYL (PF) 50 MCG/ML 2 ML AMP ONE (11:24)
[2021-09-25] MEDS ORDERED: LIDOCAINE 1% INJ 10MG/ML (20 ML MDV) ONE (11:24)
[2021-09-25] MEDS ORDERED: ROPIVACAINE 5MG/ML 20ML VIAL ONE (11:24)
--- NOTE | 2021-09-25 11:52 | P.PCN ---
Date of Procedure: 09/25/21 Description of Procedure: PREOPERATIVE DIAGNOSIS: Lumbar Facet Arthropathy without myelopathy POSTOPERATIVE DIAGNOSIS: Same PROCEDURES: Bilateral Radiofrequency thermocoagulation of L4-5, L5-S1 medial branches, with fluoroscopic guidance ANESTHESIA: IV anesthesia per nurse [facility] letter carrier please see anesthesia record Imaging: Fluoroscopy was used, images where saved to the medical record PROCEDURE INDICATION: The patient with low back pain secondary to lumbar facet arthropathy who had more than 50% relief of pain with previous diagnostic lumbar medial branch block with local anesthetic. PROCEDURE DESCRIPTION / TECHNIQUE: The patient was seen and identified in the preoperative area. Risks, benefits, complications, including but not limited to risk of infection, bleeding, allergic reactions to the medications and no complete pain relief, and alternatives were discussed with the patient, the patient agreed to proceed with the procedure and signed the consent. IV was started. Vital signs remained stable throughout the procedure. Patient was taken to the OR and time out was completed. The patient was placed in the prone position on the procedure table. The lumber area was prepped and draped in the usual sterile fashion. Vital signs were closely monitored during the procedure. IV sedation was used during the procedure to decrease patient anxiety. Using AP and then oblique fluoroscopy, the eye of the Ricky dog corresponding to the connection between the superior and transverse articular processes of L4, L5, and sacral Ala were identified, marked, and localized with 1% lidocaine. Subsequently, a 20 -jr radiofrequency cannula with a 10-mm active tip was advanced guided by fluoroscopy to the junction of the pedicle and transverse process of each identified level. Each site then underwent sensory testing at 50 Hz and 0 to 1 volt and motor testing at 2.5 Hz and 0 to 3 volt with local stimulation, no radicular symptoms sensed by the patient and no obvious motor stimulation noted. Thereafter the tested sites underwent radiofrequency thermocoagulation at 80 degrees celsius for 90 seconds after injecting 1 ml of PF lidocaine 1%. Then after the thermocoagulation was done, 1 ml of the block solution containing ropivaciane 0.5% was injected at the lesioned sites after negative aspiration of CSF and blood and with no paresthesias. Cannulas were retracted. At the end of the procedure, the skin was cleansed and bandages were applied. COMPLICATIONS: No acute complications. DISPOSITION / PLANS: The patient was placed in a supine position and transferred to the recovery area in a stable condition for observation and was discharged from the recovery room after meeting discharge criteria. Home discharge instructions given to the patient by the staff. The patient was reexamined prior to discharge. Patient will follow up as directed.
--- NOTE | 2021-09-25 12:02 | FL ---
Fluoroscopy History: LUMBAR RF John lumbar RF. 8 sec fl. 3 images sent.
[2021-09-25 12:14] VITALS: BP 171/78; PULSE 67
[2021-09-25] MEDS ORDERED: IV FLUID CONTINUATION 1,000 ML IV ONE (12:17)
== END 2021-09-25 12:19 | disposition home or self-care (01) ==
LOC: ORPAIN 10:32
PROVIDERS: ATTEND Hospitalist
DX: M47.896 Other spondylosis, lumbar region (principal)
CPT/HCPCS: 64635; 64636; J2250; J2001 ×2; J3010; J2795

== ENCOUNTER → 2021-10-14 | Outpatient (CLI) | payer MEDICARE ==
[2021-10-14 12:55] VITALS: BP 133/79; PULSE 75; RESP 18; TEMP 97.8
--- NOTE | 2021-10-14 12:59 | P.PN ---
Subjective Progress Note Date: 10/14/21 Principal diagnosis: A 80 yr old female with a history of severe and chronic low back pain secondary to lumbar degenerative disc diseases and lumbar spondylosis with facet arthropathy presents today for evaluation status post bilateral RFA L3-L4, L4- L5. Patient states she expressed 85% pain relief status post procedure. Pain level is currently at 0 out of 10 in intensity but she does complain of soreness in the paraspinal muscles and back of the knees bilaterally. She does admit that she is able to do more housework activities pain free. Pain is provoked by lifting. Pain is alleviated with medications, injections, physical therapy in the past, chiropractic treatments in the past, home exercise stretching regimen, massage with a massage device and rest. Interventional pain procedures completed include BL RFA L3-4, L4-5. Patient is currently on Motrin OTC. [place] by Dr Mccullough. Patient denies any side effects of the medication(s), denies excessive drowsiness or sleepiness, denies suicidal ideation and reports that the current pain medication is helping to control the pain and improve activities of daily living. Patient denies any motor or sensory deficits. Patient denies any fever or night sweats, denies any change in the bowel movements or urination. Physical Examination: -Constitutional: Cooperative. Not in acute distress . -HEENT: Neck is supple. No lymphadenopathy. No thyromegaly. Normal thyroid size. Eyes: No ptosis , no icterus, no photophobia. ENT: No auditory deficits. Normal oropharynx. No Thrush. - Respiratory: Chest clear to auscultations bilaterally. No wheezing. No rhonchi. - Cardiovascular: Regular rate and rhythm. S1 / S2 , no S3 , no S4. - Gastrointestinal: Abdomen soft no tenderness. Bowel sounds positive in all four quadrants. No organomegaly. - Genitourinary: Deferred. - Neurologic: Cranial nerve II to XII intact. No focal neurological deficits. - Psychatric: Alert & oriented x 3. Matching mood & appropriate affect. Judgment and insight intact. - Lymphatic: No Lymphadenopathy. - Musculoskeletal: Cervical spine: Muscle bulk/ tone/ strength in the bilateral upper extremities normal. Facet loading test cervical area positive. Lumbar spine: Motor bulk/ tone/ strength lower extremities , thigh and legs : 5/5 Deep tendon reflexes : Normal Knee Jerk. Normal Ankle Jerk . Vertebral body tenderness to palpation over L5 Lumbar Facet Loading Test positive Straight Leg Raise: positive at 30 degrees right side/ left side Gaenslen's Test positive Sacral spine : Severe tenderness over the Sacroiliac joint: right side / left side Range of motion: Flexion of the lumbar spine <60 degrees Range of motion: Extension of the lumbar spine <20 degrees Gaenslen's Test positive Jenna test: positive right side / left side Assessment and plan: Chronic low back pain secondary to lumbar degenerative disc disease , lumbar spondylosis with facet arthropathy without myelopathy Patient exhibited optimal pain relief s/p procedure. Pt may return to our clinic on an as-needed basis. All patient questions answered MAPS reviewed and it was appropriate. I have spent 31 minutes on patient care today. Dr Partida was available by phone for the evaluation of this patient. The time was used to review the medical records including relevant urine studies and Prescription history (MAPs), review of the available imaging, evaluation and examination of the patient, coordination of care with the medical staff and if applicable referring physicians, as well as creation of the medical record Objective - Vital Signs Vital signs: Vital Signs Temp 97.8 F 10/14/21 12:49 Pulse 75 10/14/21 12:49 Resp 18 10/14/21 12:49 BP 133/79 10/14/21 12:49 Pulse Ox 94 L 10/14/21 12:49 PQRS Measure Charge Sheet Mode of Arrival: Ambulatory - Pain Location Lower Back Non-Pharmacological Interventions: Chiropractic Treatment, Home Exercise, Inactivity, Physical Therapy, Position/Reposition, Stretching Pharmacological Interventions: Block, PRN Medication PQRS Narrative: Smoking Status Former smoker Blood Pressure 133/79 Pain Intensity [Lower Back] 0 Scale Used Numeric (1 - 10) Home Medications: Ambulatory Orders Atorvastatin [Lipitor] 40 mg PO DAILY 08/04/18 PARoxetine [Paxil] 40 mg PO HS 08/04/18 rOPINIRole HCL [Requip] 1 mg PO TID 08/04/18 ALPRAZolam [Xanax] 0.25 mg PO BID PRN 08/23/18 Alendronate Sodium [Fosamax] 70 mg PO MO 08/23/18 Omeprazole [PriLOSEC] 40 mg PO AC-BRKFST 10/03/19 Gabapentin [Neurontin] 300 mg PO PC-SUPPER 08/19/20 Losartan Potassium 50 mg PO DAILY 08/19/20 Melatonin 20 mg PO HS PRN 08/19/20 Ergocalciferol (Vitamin D2) [Vitamin D2 (400 Iu)] 10 mcg PO DAILY 12/02/20
== END | disposition home or self-care (01) ==
LOC: PNWHC3 12:30
PROVIDERS: ATTEND Specialist
DX: M47.896 Other spondylosis, lumbar region (principal); M51.36 Other intervertebral disc degeneration, lumbar region
CPT/HCPCS: 99211

== ENCOUNTER → 2021-11-02 | Outpatient (CLI) | payer MEDICARE ==
--- NOTE | 2021-11-02 15:45 | US ---
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 h/o TIA, no symptoms EXAM MEASUREMENTS: RIGHT: Peak Systolic Velocity (PSV) cm/sec ----- Right CCA: 82.5 ----- Right ICA: 140 ----- Right ECA: 177 ICA/CCA ratio: 1.7 RIGHT: End Diastole cm/sec ----- Right CCA: 22.1 ----- Right ICA: 34.4 ----- Right ECA: 4.5 LEFT: Peak Systolic Velocity (PSV) cm/sec ----- Left CCA: 86.6 ----- Left ICA: 152 ----- Left ECA: 122 ICA/CCA ratio: 1.7 LEFT: End Diastole cm/sec ----- Left CCA: 16.6 ----- Left ICA: 27.2 ----- Left ECA: 11.8 VERTEBRALS (direction of flow): Right Vertebral: Antegrade Left Vertebral: Antegrade Rhythm: Normal Heterogeneous plaque at bilateral bulbs, no significant stenosis seen IMPRESSION: No evidence for hemodynamically significant stenosis. Criteria for Assigning % of Stenosis / Diameter reduction (Estimation based on the indirect measurements of the internal carotid artery velocities (ICA PSV). 1. Normal (no stenosis)=ICA PSV < 125 cm/s: ratio < 2.0: ICA EDV<40 cm/s. 2. Less than 50% stenosis=ICA PSV < 125 cm/s: ratio < 2.0: ICA EDV<40 cm/s. 3. 50 to 69% stenosis=ICA PSV of 125 to 230 cm/s: ration 2.0 ? 4.0: ICA EDV 40-100 cm/s. 4. Greater than 70% stenosis to near occlusion= ICA PSV > 230 cm/s: ratio > 4.0: ICA EDV > 100 cm/s. 5. Near occlusion= ICA PSV velocities may be low or undetectable: variable ratio and ICA EDV. 6. Total occlusion=unable to detect flow.
== END | disposition home or self-care (01) ==
LOC: RADUSWWP 15:00
PROVIDERS: ATTEND Family Medicine
DX: K40.90 Unilateral inguinal hernia, without obstruction or gangrene, not specified as recurrent (principal)
CPT/HCPCS: 93880

== ENCOUNTER → 2021-11-03 | Outpatient (CLI) | payer MEDICARE ==
--- NOTE | 2021-11-03 21:07 | CT ---
EXAMINATION TYPE: CT pelvis wo con DATE OF EXAM: 11/03/2021 COMPARISON: None. HISTORY: Hernia, popping out x [address] DLP: 441 mGycm Automated exposure control for dose reduction was used. CT pelvis with oral but without IV contrast. FINDINGS: No suspicious groin hernia or adenopathy is seen bilaterally. Metallic hardware from left hip arthroplasty causes streak artifact limiting evaluation of pelvic str uctures. Moderate axial joint space loss and moderate to severe spurring in the right hip joint. Pubi c symphysis is intact. Sacroiliac joints are preserved. Grade 1 anterolisthesis L4 on L5. Mild disc s pace narrowing with vacuum disc phenomenon. Prominent facet arthropathy lower lumbar spine. Scattered diverticula throughout the colon including prominent diverticulosis of the sigmoid colon. O ral contrast reaches level of cecum. No suspicious small or large bowel dilatation. Uterus surgically absent or markedly atrophic. Scattered pelvic phleboliths. Bladder not greatly dist ended otherwise the visualized portion is unremarkable. Mild to moderate calcified plaque of the dist al abdominal aorta extends into iliac branch vessels. IMPRESSION: As above.
== END | disposition home or self-care (01) ==
LOC: RADCTMAIN 14:49
PROVIDERS: ATTEND Family Medicine
DX: K40.90 Unilateral inguinal hernia, without obstruction or gangrene, not specified as recurrent (principal); I65.21 Occlusion and stenosis of right carotid artery
CPT/HCPCS: 72192

== ENCOUNTER 2022-02-12 11:08 | Day surgery (SDC) | payer MEDICARE ==
[~2022-02-12 11:08] MED LIST changes: +LACTATED RINGERS 1,000 ML IV SCH; +LIDOCAINE 1% (10MG/ML) FOR IV START INTRADERMA PRN; -SODIUM CHLORIDE 0.9% 500 ML 500 ML in EMPTY BAG 1 BAG IV PRN; -SODIUM FERRIC GLUCONAT-SUCROSE 125 MG in SODIUM CHLORIDE 0.9% 100 ML IVPB NR
[2022-02-12 11:24] VITALS: RESP 16; TEMP 98.1
[2022-02-12] MEDS ORDERED: TRIAMCINOLONE ACETONIDE 40 MG/ML 1 ML VIAL ONE (12:09)
[2022-02-12] MEDS ORDERED: fentaNYL (PF) 50 MCG/ML 2 ML AMP ONE (12:09)
[2022-02-12] MEDS ORDERED: LIDOCAINE 2% INJ 20 MG/ML (2 ML VIAL) ONE (12:09)
[2022-02-12] MEDS ORDERED: ROPIVACAINE 5 MG/ML 20 ML AMPULE ONE (12:09)
[2022-02-12] MEDS ORDERED: MIDAZOLAM 2 MG/2 ML VIAL ONE (12:09)
--- NOTE | 2022-02-12 12:39 | P.PCN ---
Date of Procedure: 02/12/22 Surgeon: Maris Hart Pathology: none sent Condition: stable Disposition: PACU Description of Procedure: PREOPERATIVE DIAGNOSIS: Lumbar spondylosis without myelopathy, morbid obesity POSTOPERATIVE DIAGNOSIS: Lumbar spondylosis without myelopathy,morbid obesity PROCEDURES : Bilateral Radiofrequency thermocoagulation L4-L5, and L5-S1 medial branch, with fluoroscopic guidance ANESTHESIA: IV moderate conscious sedation with versed and fentanyl by the anesthesia Department and local infiltration with lidocaine 1% 5 ml Physician:Maris Hart MD EBL: Minimal PROCEDURE INDICATION: The patient with low back pain secondary to lumbar facet arthropathy who had significant relief of pain with previous diagnostic lumbar medial branch block with Ropivacaine0.5%. PROCEDURE DESCRIPTION / TECHNIQUE: The patient was seen and identified in the preoperative area. Risks, benefits, complications, including but not limited to risk of infection ,bleeding , allergic reactions to the medications and no complete pain relief , and alternatives were discussed with the patient, the patient agreed to proceed with the procedure and signed the consent. IV was started. Vital signs remained stable throughout the procedure. Patient was taken to the OR and time out was completed. The patient was placed in the prone position on the procedure table. The lumber area was prepped and draped in the usual sterile fashion. . Vital signs were closely monitored during the procedure .IV sedation was used during the procedure to decrease patients anxiety. The target points were identified as follows: For the L5-S1 level which corresponds to the dorsal ramus of L5 the target point was at the superior medial aspect of the sacral ala on the Rt side of the spine on the AP view of fluoroscopy and for the L3, and L4 medial branches the target points were at the connection between the transverse process and the superior articular process of L4, and L5 vertebra respectively on the Rt oblique view of fluoroscopy. skin was marked, and localized with 1% lidocaineat these points. Subsequently, an 18 [id number] radiofrequency needles with a 10-mm curved active tips were advanced guided by fluoroscopy to each of the target points mentioned above in a superior medial direction to get the active tips as parallel as possible to the medial branches tracks. AP, oblique, and lateral views of fluoroscopy were used to verify needle tips position. Each level then underwent motor testing at 2.5 Hz and 0 to 3 volt with local stimulation, but no radicular symptoms down the legs. I then injected 1 mL of lidocaine 1% in each needle before starting radiofrequency thermocoagulation at 80 degrees celsius for 90 seconds. After that I injected 1 ml of PF Ropivacaine 0.5%(3 mls) with 40 mg of Kenalog, 1 mL of this mixture was given in each needle before taking the needles out intact. Then the left side with the same levels was done in the same manner. At the end of the procedure, the skin was cleansed and bandages were applied. A copy of needle placement fluoroscopy was saved on the C-arm machine. COMPLICATIONS: No acute complications. DISPOSITION / PLANS: The patient was placed in a supine position and transferred to the recovery area in a stable condition for observation and was discharged from the recovery room after meeting discharge criteria. Home discharge instructions given to the patient by the staff. The patient was reexamined prior to discharge. The patient will schedule a follow up in the clinic in 2-4 weeks.
[2022-02-12] MEDS ORDERED: IV FLUID CONTINUATION 1,000 ML IV ONE (12:46)
--- NOTE | 2022-02-12 13:03 | FL ---
Fluoroscopy History: RF BILATERAL LUMBAR RF BILATERAL LUMBAR. FLUORO TIME [address] CROCKER.
[2022-02-12 13:05] VITALS: BP 130/70; PULSE 71
== END 2022-02-12 13:27 | disposition home or self-care (01) ==
LOC: ORPAIN 11:08
PROVIDERS: ATTEND Anesthesiology
DX: M47.816 Spondylosis without myelopathy or radiculopathy, lumbar region (principal); E66.01 Morbid (severe) obesity due to excess calories; I10 Essential (primary) hypertension; E78.5 Hyperlipidemia, unspecified; G25.81 Restless legs syndrome; F41.9 Anxiety disorder, unspecified; K21.9 Gastro-esophageal reflux disease without esophagitis; Z86.73 Personal history of transient ischemic attack (TIA), and cerebral infarction without residual deficits; Z79.899 Other long term (current) drug therapy; Z79.82 Long term (current) use of aspirin; Z87.891 Personal history of nicotine dependence; Z80.0 Family history of malignant neoplasm of digestive organs; Z80.3 Family history of malignant neoplasm of breast; Z80.42 Family history of malignant neoplasm of prostate
CPT/HCPCS: 64635; 64636 ×2; J2250; J3301; J2001 ×2; J3010; J2795

== ENCOUNTER → 2022-03-11 | Outpatient (CLI) | payer MEDICARE ==
[2022-03-11 15:04] VITALS: BP 160/77; PULSE 69; RESP 18; TEMP 98.7
--- NOTE | 2022-03-11 15:20 | P.PAINPG ---
Objective - Vital Signs Vital signs: Intake & Output 03/10/22 03/11/22 03/11/22 18:59 06:59 18:59 Weight 65.317 kg PQRS Measure Charge Sheet Comment: A 81 yr old female with a history of severe and chronic low back pain secondary to lumbar degenerative disc diseases and lumbar spondylosis with facet arthropathy presents today for evaluation s/p BL RFA L3-L5. Pt states she experienced 90% s/p procedure. Pt thinks she "overdid it" while taking care of her grandchildren and is complaining of BL paraspinal cramps and pain. Pain level is 10/10 in intensity, constant, sore/ achy in character w pain shooting L & R of midline. Pain is provoked by lifting/standing/walking for periods of 15 min or more. Pain is alleviated with PT x 6 wks in 2020, heat, medications ([place]), home exercise regimen, sitting, laying supine, repositioning and rest. Interventional pain procedures completed include LESIs, BL RFA L3-L5. Patient is currently on [place] prn Patient denies any side effects of the medication(s), denies excessive drowsiness or sleepiness, denies suicidal ideation and reports that the current pain medication is helping to control the pain and improve activities of daily living. Patient denies any motor or sensory deficits. Patient denies any fever or night sweats, denies any change in the bowel movements or urination. Physical Examination: -Constitutional: Cooperative. Not in acute distress . - Neurologic: Cranial nerve II to XII intact. No focal neurological deficits. - Psychatric: Alert & oriented x 3. Matching mood & appropriate affect. Judgment and insight intact. - Musculoskeletal: Cervical spine: Muscle bulk/ tone/ strength in the bilateral upper extremities normal Vertebral body tenderness to palpation over Spurling test positive Distraction test positive Facet loading test positive Thoracic spine Muscle bulk / tone/ strength in the bilateral paraspinal muscles normal Vertebral body tender to palpation over Facet loading test positive Lumbar spine: Motor bulk/ tone/ strength lower extremities , thigh and legs : 5/5 BL paraspinal TTP and palpable muscle spasms Deep tendon reflexes : Normal Knee Jerk. Normal Ankle Jerk . Vertebral body tenderness to palpation over Lumbar Facet Loading Test positive Straight Leg Raise: positive at 30 degrees right side/ left side Gaenslen's Test positive Sacral spine : Severe tenderness over the Sacroiliac joint: right side / left side Range of motion: Flexion of the lumbar spine <60 degrees Range of motion: Extension of the lumbar spine <20 degrees Gaenslen's Test positive Ward's Test positive Jenna test: positive right side / left side Thigh Thrust Test Sacral Thrust Test Assessment and plan: Chronic low back pain secondary to lumbar degenerative disc disease , lumbar spondylosis with facet arthropathy without myelopathy Recommendation of BL TPIs of L2-S1. May need a series, up to every 2-3 mo, for sufficient relief. Risks, benefits of procedure discussed and pt verbalized understanding. Denies anticoagulant use or medical history of diabetes. Also discussed use of pulsating shower, Epsom salt baths, massage therapy, muscle relaxers, etc. All patient questions answered MAPS reviewed and it was appropriate. I have spent less than 30 minutes on patient care today. Dr Partida was available by phone for the evaluation of this patient. The time was used to review the medical records including relevant urine studies and Prescription hi story (MAPs), review of the available imaging, evaluation and examination of the patient, coordination of care with the medical staff and if applicable referring physicians, as well as creation of the medical record PQRS Narrative: Smoking Status Former smoker Home Medications: Ambulatory Orders Atorvastatin [Lipitor] 40 mg PO DAILY 08/04/18 PARoxetine [Paxil] 40 mg PO QAM 08/04/18 rOPINIRole HCL [Requip] 1 mg PO QID 08/04/18 ALPRAZolam [Xanax] 0.25 mg PO BID PRN 08/23/18 Alendronate Sodium [Fosamax] 70 mg PO MO 08/23/18 Omeprazole [PriLOSEC] 40 mg PO AC-BRKFST 10/03/19 Gabapentin [Neurontin] 300 mg PO PC-SUPPER 08/19/20 Losartan Potassium 50 mg PO QAM 08/19/20 Diclofenac Sodium Gel [Voltaren Gel] 100 gm TOPICAL BID PRN 30 Days #100 gm 12/28/21 Ergocalciferol [Vitamin D2 (1250 Mcg = 37403 Iu)] 1,250 mcg PO MO 01/14/22 Hydrocodone/Acetaminophen [Hydrocodone/Acetaminophen 7.5-325] 1 tab PO Q6H PRN 02/11/22 Ibuprofen [Motrin] 800 mg PO DAILY PRN 02/11/22 Controlled Substance Measures - Controlled Substance Measures Is patient prescribed a controlled substance at discharge?: No
== END | disposition home or self-care (01) ==
LOC: PNWHC3 14:02
PROVIDERS: ATTEND Specialist
DX: M47.896 Other spondylosis, lumbar region (principal); M51.36 Other intervertebral disc degeneration, lumbar region
CPT/HCPCS: 99211

== ENCOUNTER 2022-04-15 07:25 | Day surgery (SDC) | payer MEDICARE ==
[2022-04-13 15:37] VITALS: BMI 23.2
[~2022-04-15 07:25] MED LIST changes: -LIDOCAINE 1% (10MG/ML) FOR IV START INTRADERMA PRN
[2022-04-15 07:54] VITALS: RESP 16; TEMP 97.4
[2022-04-15] MEDS ORDERED: LIDOCAINE 1% (10MG/ML) FOR IV START INTRADERMA ONE (07:54)
[2022-04-15] MEDS ORDERED: methylPREDNISolone ACETATE 40 MG/ML 1 ML VIAL ONE (08:39)
[2022-04-15] MEDS ORDERED: ROPIVACAINE 5 MG/ML 20 ML AMPULE ONE (08:39)
[2022-04-15] MEDS ORDERED: MIDAZOLAM 2 MG/2 ML VIAL ONE (08:39)
[2022-04-15] MEDS ORDERED: fentaNYL (PF) 50 MCG/ML 2 ML AMP ONE (08:39)
--- NOTE | 2022-04-15 08:49 | P.PCN ---
Date of Procedure: 04/15/22 Procedure(s) Performed: Procedure= trigger point injections lumbar paraspinal muscles L2 to S1 (3 trigger points injected on the right side lumbar paraspinal muscles, and 4 on the left side lumbar paraspinal muscles) Preoperative diagnosis= 1-myofascial pain syndrome lumbar paraspinal muscles. 2-lumbar degenerative disc disease 3-lumbar facet arthropathy Postoperative diagnosis=Same as preop Diagnosis . Complication = none Condition= stable Anesthesia= moderate sedation with intravenous Versed 1 mg , and fentanyl 50 micrograms . Sedation start time 0840 sedation end time 0845 Indication for the procedure= patient complaining of low back pain , examination was positive for multiple trigger point in the lumbar paraspinal muscles bilaterally and patient diagnosed with myofascial pain syndrome, for this reason he was good candidate for either pontine injections. Description of the procedure= procedure risk and benefits discussed with the patient, including but not limited, risk of infection and bleeding, and ALLERGIC reaction to the medication and not complete pain relief and patient agreed with the preceding patient taken to the operating room, placed in sitting position or standard monitors applied to the patient then after induction of anesthesia back prepped with chlorhexidine 3 times , then after that each of the trigger point injected with 2 mL of the mixture of ropivacaine 0.5% 14 ML mixed with 40 mg of Depo-Medrol, and 2 mL of the mixture injected after negative aspiration using 25-gauge needle, injection done after negative aspiration and there was no paresthesia during the injection, total of 3 trigger point identified and inje cted in the right lumbar paraspinal muscles and 4 trigger point identified and injected on the left side lumbar paraspinal muscles, patient tolerated the procedure well without any complications
[2022-04-15] MEDS ORDERED: IV FLUID CONTINUATION 1,000 ML IV ONE (08:50)
[2022-04-15 09:10] VITALS: BP 171/80; PULSE 59
== END 2022-04-15 09:20 | disposition home or self-care (01) ==
LOC: ORPAIN 07:25
PROVIDERS: ATTEND Specialist
DX: M79.18 Myalgia, other site (principal); M51.36 Other intervertebral disc degeneration, lumbar region; M47.816 Spondylosis without myelopathy or radiculopathy, lumbar region
CPT/HCPCS: 20553; J2250; J1030; J3010; J2795

== ENCOUNTER → 2022-06-02 | Outpatient (CLI) | payer MEDICARE ==
[2022-06-02 08:19] VITALS: BP 162/79; PULSE 66; RESP 18
--- NOTE | 2022-06-02 10:36 | P.PAINPG ---
PQRS Measure Charge Sheet Comment: A 81 yr old female with a history of severe and chronic low back pain secondary to lumbar degenerative disc diseases and lumbar spondylosis with facet arthropathy without myelopathy presents today for evaluation s/p L2-S1 TPIs. Pt states she experienced 50% pain relief x 5 wks s/p procedure. Pain level is at 10/10 in intensity w bending/ twisting/ lifting, constant, localized in the periphery of the lumbar spine, dull/ achy in character without radiation. Pain is alleviated with medications ([place], Motrin from Dr. Singh), topicals which provided no relief, injections, heat, repositioning, PT in August 2019, daily home stretching regimen, sitting with forward hunched gait and rest. Interventional pain procedures completed include BL RFA L3-L5, TPIs L2-S1. Patient is currently on [place], Motrin Patient denies any side effects of the medication(s), denies excessive drowsiness or sleepiness, denies suicidal ideation and reports that the current pain medication is helping to control the pain and improve activities of daily living. Patient denies any motor or sensory deficits. Patient denies any fever or night sweats, denies any change in the bowel movements or urination. Physical Examination: -Constitutional: Cooperative. Not in acute distress . - Neurologic: Cranial nerve II to XII intact. No focal neurological deficits. - Psychatric: Alert & oriented x 3. Matching mood & appropriate affect. Judgment and insight intact. - Musculoskeletal: Cervical spine: Muscle bulk/ tone/ strength in the bilateral upper extremities normal Vertebral body tenderness to palpation over Spurling test positive Distraction test positive Facet loading test positive Thoracic spine Muscle bulk / tone/ strength in the bilateral paraspinal muscles normal Vertebral body tender to palpation over Facet loading test positive Lumbar spine: Motor bulk/ tone/ strength lower extremities , thigh and legs : 5/5 Deep tendon reflexes : Normal Knee Jerk. Normal Ankle Jerk . Vertebral body tenderness to palpation over Lumbar Facet Loading Test positive BL paraspinal TTP and palpable spasms Straight Leg Raise: positive at 30 degrees right side/ left side Gaenslen's Test positive Sacral spine : Severe tenderness over the Sacroiliac joint: right side / left side Range of motion: Flexion of the lumbar spine <60 degrees Range of motion: Extension of the lumbar spine <20 degrees Gaenslen's Test positive Ward's Test positive Jenna test: positive right side / left side Thigh Thrust Test Sacral Thrust Test Assessment and plan: Chronic low back pain secondary to lumbar degenerative disc disease , lumbar spondylosis with facet arthropathy without myelopathy Recommendation of repeat BL TPIs L2-S1. May need a series of injections for optimal pain relief. Risks, benefits of procedure discussed and pt verbalized understanding. Denies anticoagulant use or medical history of diabetes. Script for PT to integrate w massage therapy Re: [id number] All patient questions answered I have spent less than 30 minutes on patient care today. Dr Partida was available by phone for the evaluation of this patient. The time was used to review the medical records including relevant urine studies and Prescription history (MAPs), review of the available imaging, evaluation and examination of the patient, coordination of care with the medical staff and if applicable referring physicians, as well as creation of the medical record - Pain Location Lower Back Non-Pharmacological Interventions: Heat, Home Exercise, Inactivity, Physical Therapy, Position/Reposition, Sitting, Stretching Pharmacological Interventions: Block, Epidural, PRN Medication, Topical Medication PQRS Narrative: Smoking Status Former smoker Home Medications: Ambulatory Orders Atorvastatin [Lipitor] 40 mg PO DAILY 08/04/18 PARoxetine [Paxil] 40 mg PO QAM 08/04/18 rOPINIRole HCL [Requip] 1 mg PO QID 08/04/18 ALPRAZolam [Xanax] 0.25 mg PO BID PRN 08/23/18 Alendronate Sodium [Fosamax] 70 mg PO MO 08/23/18 Omeprazole [PriLOSEC] 40 mg PO AC-BRKFST 10/03/19 Gabapentin [Neurontin] 300 mg PO PC-SUPPER 08/19/20 Losartan Potassium 50 mg PO QAM 08/19/20 Diclofenac Sodium Gel [Voltaren Gel] 100 gm TOPICAL BID PRN 30 Days #100 gm 12/28/21 Ergocalciferol [Vitamin D2 (1250 Mcg = 95792 Iu)] 1,250 mcg PO MO 01/14/22 Hydrocodone/Acetaminophen [Hydrocodone/Acetaminophen 7.5-325] 1 tab PO Q6H PRN 02/11/22 Ibuprofen [Motrin] 800 mg PO DAILY PRN 02/11/22 Controlled Substance Measures - Controlled Substance Measures Is patient prescribed a controlled substance at discharge?: No
== END ==
LOC: PNWHC3 07:45
PROVIDERS: ATTEND Specialist
DX: M47.816 Spondylosis without myelopathy or radiculopathy, lumbar region (principal); G89.29 Other chronic pain; M51.36 Other intervertebral disc degeneration, lumbar region; Z87.891 Personal history of nicotine dependence
CPT/HCPCS: 99211

== ENCOUNTER 2022-07-08 11:19 | Day surgery (SDC) | payer MEDICARE ==
[2022-07-06 11:32] VITALS: BMI 23.6
[2022-07-08 12:11] VITALS: RESP 18; TEMP 98.1
[2022-07-08] MEDS ORDERED: TRIAMCINOLONE ACETONIDE 40 MG/ML 1 ML VIAL ONE (12:54)
[2022-07-08] MEDS ORDERED: fentaNYL (PF) 50 MCG/ML 2 ML AMP ONE (12:54)
[2022-07-08] MEDS ORDERED: ROPIVACAINE 5 MG/ML 20 ML AMPULE ONE (12:54)
--- NOTE | 2022-07-08 13:01 | P.PCN ---
Date of Procedure: 07/08/22 Surgeon: Maris Hart Pathology: none sent Condition: stable Disposition: PACU Description of Procedure: Pre and postop diagnosis: Myofascial pain in the lumbar paravertebral musculature Anesthesia IV moderate conscious sedation with fentanyl and Versed Physician: Maris Hart MD Description of procedure: The patient was seen in preop holding area, consent was obtained, the trigger points were marked on skin. Then the patient was brought into the procedure room and placed in prone position. Skin was prepped with ChloraPrep and draped in a sterile manner. Then I used 25-gauge 1-1/2 inch needle to go through the skin and into the trigger points and injected 1 mL of ropivacaine 0.5% mixed with 40 mg of Kenalog in a solution of ....... MLS of ropivacaine 0.5% +40 mg of Kenalog. 1 mL of the solution was injected at each trigger point with a total of trigger points injected in the lumbar paravertebral musculature . . Patient tolerated procedure well. Sedation time: The patient has left lumbar radiculopathy clinically and I think she might benefit from lumbar epidural steroid injection at the L4 5 level in the future.
[2022-07-08] MEDS ORDERED: IV FLUID CONTINUATION 1,000 ML IV ONE (13:04)
[2022-07-08 13:19] VITALS: BP 167/69; PULSE 66
== END 2022-07-08 13:42 | disposition home or self-care (01) ==
LOC: ORPAIN 11:19
PROVIDERS: ATTEND Anesthesiology
DX: M79.18 Myalgia, other site (principal); I10 Essential (primary) hypertension
CPT/HCPCS: 20552; J3301; J3010; J2795

== ENCOUNTER → 2022-07-30 | Outpatient (CLI) | payer MEDICARE ==
[2022-07-30 15:18] LABS: African American GFR (CKD) >90 (>60 ml/min/1.73 sqM); Blood Urea Nitrogen 24 mg/dL (7-17); Non-African American GFR(CKD) 86 (>60 ml/min/1.73 sqM)
--- NOTE | 2022-07-30 19:13 | CT ---
EXAMINATION TYPE: CT brain wo/w con DATE OF EXAM: 07/30/2022 COMPARISON: CT brain December 23, 2018 HISTORY: possible stroke,headaches, left leg numbness CT DLP: 2180.8 mGycm Automated exposure control for dose reduction was used. CONTRAST: CT scan of the head is performed without and with IV Contrast, patient injected with 75 mL of Isovue 300. FINDINGS: Noncontrast images show mild to moderate ventricular and sulcal prominence. There is moderate low-att enuation in the deep and periventricular white matter. Postcontrast images show no suspicious enhanc ing parenchymal masses. Scleral consultation bilateral globes is seen. The paranasal sinuses are arminda sly clear. IMPRESSION: There is mild to moderate diffuse cerebral atrophy and moderate chronic small vessel isch emic change identified with some slight interval progression from 2019 CT identified. No abnormal enh ancing masses are noted.
== END | disposition home or self-care (01) ==
LOC: RADCTMAIN 14:33
PROVIDERS: ATTEND Family Medicine
DX: S00.83XA Contusion of other part of head, initial encounter (principal); I67.82 Cerebral ischemia; G31.9 Degenerative disease of nervous system, unspecified; X58.XXXA Exposure to other specified factors, initial encounter
CPT/HCPCS: 82565; 84520; 70470; 36415; Q9967

== ENCOUNTER → 2022-08-11 | Outpatient (CLI) | payer MEDICARE ==
--- NOTE | 2022-08-11 15:40 | MR ---
EXAMINATION TYPE: MR brain wo/w con DATE OF EXAM: 08/11/2022 COMPARISON: MR brain 01/12/2019, CT brain 07/30/2022 HISTORY: STROKE OR TIA TECHNIQUE: Multiplanar, multisequence images of the brain and brainstem is performed without and with IV contras t, utilizing 7ML mL intravenous Gadavist . FINDINGS: Diffusion weighted images demonstrate no evidence of a recent infarct or other diffusion ab normality. There is no extra-axial fluid collection. Patchy and confluent T2/FLAIR hyperintense sign al within the pericallosal, periventricular, subcortical white matter, and left marylin redemonstrated. The ventricular system and cisternal spaces are normal in size and appearance. Cortical atrophy is a ge-appropriate. Foci of susceptibility artifact consistent with remote microhemorrhage demonstrated w ithin the right caudate head, right thalamus, and right frontal lobe. Remote Midline structures demonstrate normal morphology. The craniocervical junction appears within normal limits. Post contrast images demonstrate no abnormal enhancement. Aberrant anatomy redemonstrated wi thin the lummi of [place]. The dural venous sinuses appear patent. The visualized sinuses are clear. The ocular lenses are surgically absent. IMPRESSION: 1. No MRI evidence for acute/subacute ischemia. No abnormal contrast enhancement. 2. 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
== END | disposition home or self-care (01) ==
LOC: RADMRIMAIN 12:55
PROVIDERS: ATTEND Family Medicine
DX: G93.89 Other specified disorders of brain (principal); G91.2 (Idiopathic) normal pressure hydrocephalus
CPT/HCPCS: 70553; A9585

== ENCOUNTER → 2022-08-19 | Day surgery (SDC) | payer MEDICARE ==
[~2022-08-19] MED LIST changes: +IOPAMIDOL M200 10 ML VIAL ONE; +IV FLUID CONTINUATION 1,000 ML IV ONE; +LIDOCAINE 1% (10MG/ML) FOR IV START INTRADERMA PRN; +MIDAZOLAM 2 MG/2 ML VIAL ONE; +fentaNYL (PF) 50 MCG/ML 2 ML AMP ONE; +methylPREDNISolone ACETATE 40 MG/ML 1 ML VIAL ONE
[2022-08-19 09:46] VITALS: TEMP 97.5
--- NOTE | 2022-08-19 10:29 | P.PCN ---
Date of Procedure: 08/19/22 Procedure(s) Performed: PREOPERATIVE DIAGNOSIS: 1- Lumbar Degenerative Disc Diseases 2-Lumbar spondylosis with Facet arthropathy without myelopathy. 3-lumbar radiculopathy. POSTOPERATIVE DIAGNOSIS: Same as preop diagnosis. PROCEDURE 1. Lumbar epidural steroid injection under fluoroscopic guidance at the L4-5 level. (Fluoroscopy imaging was available in radiology department) 2. Lumbar epidurogram. ANESTHESIA: moderate sedation with intravenous Versed 1 mg ,and fentanyle 50 Mcg Sedation start time : 1021 Sedation end time : 102 EBL: Minimal PROCEDURE INDICATION: The patient with low back pain and radiculitis symptoms unresponsive to conservative treatment. Fluoroscopy was used to optimize visualization of the needle placement and to maximize safety. PROCEDURE DESCRIPTION / TECHNIQUE: The patient was seen and identified in the preoperative area. Risks, benefits, complications including but not limited to infections ,bleeding ,allergic reaction to the medications ,nerve damage and not complete pain releife , and alternatives were discussed with the patient. The patient agreed to proceed with the procedure and signed the consent. IV was started, and vital signs were stable. Patient was taken to the OR and time out was completed. The patient was placed in the prone position on procedure table and a pillow was placed under the abdomen to reduce lumbar lordosis. The lumbosacral area was prepped and draped in the usual sterile fashion.ere closely monitored during the procedure. Conscious sedation was used during the procedure to decrease patients anxiety. Vital signs was monitered during the entire procedure. Using anterior-posterior fluoroscopy, the L4-5 interlaminar space was identified and the skin over this site was marked and then infiltrated with 1% lidocaine subcutaneously. Subsequently, a 20-gauge Tuohy epidural needle was inserted and advanced toward the epidural space using the ``Loss of resistance technique and guided by AP and lateral fluoroscopy. The correct needle position in the epidural space was verified with the injection of 2 mL of the water soluble contrast dye Isovue 200 contrast and observing an excellent epidurogram with the epidural spread of the dye, after negative aspiration for blood and CSF and in the absence of paresthesias. Again after negative aspiration, a 6 ml mixture containing 40 mg of Depo-medrol ( Preservetive Free ), and 2 ml of preservative free Normal Saline, and 2 ml of preservative free lidocaine 1% solution was injected and a washout of epidurogram was seen. Needle was withdrawn intact, skin was cleansed, and bandages were applied. COMPLICATIONS: None DISPOSITION / PLANS: The patient was placed in a supine position and transferred to the recovery area in a stable condition for observation. There was no evidence of lower extremity motor or sensory deficit after the procedure. Patient was discharged from the recovery room after meeting discharge criteria. Home discharge instructions were given to the patient by the staff. The patient was reexamined prior to discharge. The patient will schedule a follow up in the clinic in 2-4 weeks.
[2022-08-19 11:20] VITALS: BP 135/69; PULSE 74; RESP 16
--- NOTE | 2022-08-19 12:49 | FL ---
EXAMINATION TYPE: FL guided pain mgmt statistic DATE OF EXAM: 08/19/2022 CLINICAL HISTORY: Lumbar epidural steroid injection TECHNIQUE: Fluoroscopy. COMPARISON: None. FINDINGS: Fluoroscopic guidance was provided during procedure performed by Dr. Partida. A total of 4 seconds of fluoroscopic time was utilized during the procedure and 1 spot images was acquired. Ple ase see separate report for procedural details. IMPRESSION: As Above.
== END ==
LOC: ORPAIN 09:25
PROVIDERS: ATTEND Specialist
DX: M51.16 Intervertebral disc disorders with radiculopathy, lumbar region (principal); M47.26 Other spondylosis with radiculopathy, lumbar region
CPT/HCPCS: 62323; J2250; J1030; J3010; Q9966

== ENCOUNTER 2022-10-14 11:11 | Day surgery (SDC) | payer MEDICARE ==
[2022-10-14] MEDS ORDERED: LACTATED RINGERS 1,000 ML IV ONE ×2 (12:15→13:27)
[2022-10-14 12:38] VITALS: TEMP 97.9
[2022-10-14] MEDS ORDERED: MIDAZOLAM 2 MG/2 ML VIAL ONE (13:03)
[2022-10-14] MEDS ORDERED: methylPREDNISolone ACETATE 40 MG/ML 1 ML VIAL ONE (13:03)
[2022-10-14] MEDS ORDERED: IOPAMIDOL M200 10 ML VIAL ONE (13:03)
--- NOTE | 2022-10-14 13:17 | P.PCN ---
Date of Procedure: 10/14/22 Procedure(s) Performed: Procedure(s) Performed: PREOPERATIVE DIAGNOSIS: 1- Lumbar Degenerative Disc Diseases 2-Lumbar spondylosis with Facet arthropathy without myelopathy. 3-lumbar radiculopathy. POSTOPERATIVE DIAGNOSIS: Same as preop diagnosis. PROCEDURE 1. Lumbar epidural steroid injection under fluoroscopic guidance at the L4-5 level. (Fluoroscopy imaging was available in radiology department) 2. Lumbar epidurogram. ANESTHESIA: moderate sedation with intravenous Versed 2 mg . Sedation start time : 1310 Sedation end time : 1314 EBL: Minimal PROCEDURE INDICATION: The patient with low back pain and radiculitis symptoms unresponsive to conservative treatment. Fluoroscopy was used to optimize visualization of the needle placement and to maximize safety. PROCEDURE DESCRIPTION / TECHNIQUE: The patient was seen and identified in the preoperative area. Risks, benefits, complications including but not limited to infections ,bleeding ,allergic reaction to the medications ,nerve damage and not complete pain releife , and alternatives were discussed with the patient. The patient agreed to proceed with the procedure and signed the consent. IV was started, and vital signs were stable. Patient was taken to the OR and time out was completed. The patient was placed in the prone position on procedure table and a pillow was placed under the abdomen to reduce lumbar lordosis. The lumbosacral area was prepped and draped in the usual sterile fashion.ere closely monitored during the procedure. Conscious sedation was used during the procedure to decrease patients anxiety. Vital signs was monitered during the entire procedure. Using anterior-posterior fluoroscopy, the L4-5 interlaminar space was identified and the skin over this site was marked and then infiltrated with 1% lidocaine subcutaneously. Subsequently, a 20-gauge Tuohy epidural needle was inserted and advanced toward the epidural space using the ``Loss of resistance technique and guided by AP and lateral fluoroscopy. The correct needle position in the epidural space was verified with the injection of 2 mL of the water soluble contrast dye Isovue 200 contrast and observing an excellent epidurogram with the epidural spread of the dye, after negative aspiration for blood and CSF and in the absence of paresthesias. Again after negative aspiration, a 6 ml mixture containing 40 mg of Depo-medrol ( Preservetive Free ), and 2 ml of preservative free Normal Saline, and 2 ml of preservative free lidocaine 1% solution was injected and a washout of epidurogram was seen. Needle was withdrawn intact, ski n was cleansed, and bandages were applied. COMPLICATIONS: None DISPOSITION / PLANS: The patient was placed in a supine position and transferred to the recovery area in a stable condition for observation. There was no evidence of lower extremity motor or sensory deficit after the procedure. Patient was discharged from the recovery room after meeting discharge criteria. Home discharge instructions were given to the patient by the staff. The patient was reexamined prior to discharge. The patient will schedule a follow up in the clinic in 2-4 weeks.
[2022-10-14] MEDS ORDERED: LACTATED RINGERS 1,000 ML IV SCH (13:18)
[2022-10-14] MEDS ORDERED: LIDOCAINE 1% (10MG/ML) FOR IV START INTRADERMA PRN (13:18)
[2022-10-14 13:51] VITALS: BP 137/72; PULSE 78; RESP 18
--- NOTE | 2022-10-14 16:00 | FL ---
EXAMINATION TYPE: FL guided pain mgmt statistic DATE OF EXAM: 10/14/2022 FLUOROSCOPY Fluoroscopy time of 0.6 seconds was used during lumbar epidural steroid injection. 1 image/s documen t/s the procedure.
== END 2022-10-14 13:52 | disposition home or self-care (01) ==
LOC: ORPAIN 11:11
PROVIDERS: ATTEND Specialist
DX: M51.16 Intervertebral disc disorders with radiculopathy, lumbar region (principal); M47.26 Other spondylosis with radiculopathy, lumbar region
CPT/HCPCS: 62323; J2250; J1030; Q9966

== ENCOUNTER → 2022-11-08 | Outpatient (CLI) | payer MEDICARE ==
[2022-11-08 10:52] VITALS: BP 181/102; PULSE 67; RESP 18; TEMP 98.7
--- NOTE | 2022-11-08 12:30 | P.PAINPG ---
PQRS Measure Charge Sheet History and Exam Findings: All other causes of pain ruled out Comment: A 81 yr old female with a history of severe and chronic LBP secondary to lumbar DDD and spondylosis with facet arthropathy without myelopathy presents today for evaluation s/p MAYA L4-L5 #2. Pt states she experienced 0 % pain relief x 3 wks s/p procedure. Pain level is provoked at 8/10 in intensity, constant, localized in the lumbar spine, achy in character w shooting towards the back of the knee. Pain is provoked by standing and over activity. Pain is alleviated with PT x 6 wks in 2021, heat, meds (Marion, Ibu), topical, repositioning and rest. Interventional pain procedures completed include MAYA L4-L5 x2, BL RFA L3-L5, Lumbar TPIs Patient is currently on Marion Ibu Patient denies any side effects of the medication(s), denies excessive drowsiness or sleepiness, denies suicidal ideation and reports that the current pain medication is helping to control the pain and improve activities of daily living. Patient denies any motor or sensory deficits. Patient denies any fever or night sweats, denies any change in the bowel movements or urination. Physical Examination: -Constitutional: Cooperative. Not in acute distress . - Neurologic: Cranial nerve II to XII intact. No focal neurological deficits. - Psychatric: Alert & oriented x 3. Matching mood & appropriate affect. Judgment and insight intact. - Musculoskeletal: Cervical spine: Muscle bulk/ tone/ strength in the bilateral upper extremities normal Vertebral body tenderness to palpation over Spurling test positive Distraction test positive Facet loading test positive TTP Thoracic spine Muscle bulk / tone/ strength in the bilateral paraspinal muscles normal Vertebral body tender to palpation over Facet loading test positive TTP Lumbar spine: Motor bulk/ tone/ strength lower extremities , thigh and legs : 5/5 Deep tendon reflexes : Normal Knee Jerk. Normal Ankle Jerk . Vertebral body tenderness to palpation over Lumbar Facet Loading Test positive Straight Leg Raise: positive at 30 degrees right side/ left side Gaenslen's Test positive Sacral spine : Severe tenderness over the Sacroiliac joint: right side / left side Range of motion: Flexion of the lumbar spine <60 degrees Range of motion: Extension of the lumbar spine <20 degrees Gaenslen's Test positive right side / left side Jenna test: positive right side / left side Thigh Thrust Test positive right side / left side Sacral Thrust Test positive right side / left side Assessment and plan: Chronic LBP secondary to lumbar DDD, spondylosis with facet arthropathy without myelopathy Recommendation of follow up w her Orthopedic Surgeon for additional treatment options. All questions answered. I have spent less than 30 minutes on patient care today. Dr Partida was available by phone for the evaluation of this patient. The time was used to review the medical records including relevant urine studies and Prescription history (MAPs), review of the available imaging, evaluation and examination of the patient, coordination of care with the medical staff and if applicable referring physicians, as well as creation of the medical record PQRS Narrative: Smoking Status Former smoker Home Medications: Ambulatory Orders Atorvastatin [Lipitor] 40 mg PO DAILY 08/04/18 PARoxetine [Paxil] 40 mg PO QAM 08/04/18 rOPINIRole HCL [Requip] 1 mg PO QID 08/04/18 ALPRAZolam [Xanax] 0.25 mg PO BID PRN 08/23/18 Omeprazole [PriLOSEC] 40 mg PO BID 10/03/19 Gabapentin [Neurontin] 600 mg PO HS 08/19/20 Losartan Potassium 50 mg PO QAM 08/19/20 Hydrocodone/Acetaminophen [Hydrocodone/Acetaminophen 7.5-325] 1 tab PO Q6H PRN 02/11/22 Magnesium 400 mg PO DAILY 08/17/22 Alendronate Sodium [Fosamax] 70 mg PO WEEKLY 10/12/22 Ibuprofen [Motrin] 600 mg PO RT-Q6H PRN 10/14/22 Controlled Substance Measures - Controlled Substance Measures Is patient prescribed a controlled substance at discharge?: No
== END ==
LOC: PNWHC3 10:03
PROVIDERS: ATTEND Specialist
DX: M51.36 Other intervertebral disc degeneration, lumbar region (principal); M47.816 Spondylosis without myelopathy or radiculopathy, lumbar region; G89.29 Other chronic pain; Z87.891 Personal history of nicotine dependence
CPT/HCPCS: 99211

== ENCOUNTER → 2022-12-09 | Outpatient (CLI) | payer MEDICARE ==
--- NOTE | 2022-12-11 12:10 | MR ---
EXAMINATION TYPE: MR kayleneine/lspine wo con DATE OF EXAM: 12/09/2022 COMPARISON: None HISTORY: 81-year-old female R52, Mid/low back pain TECHNIQUE: Multiplanar, multisequence imaging of the thoracic and lumbar spine is performed without I V contrast. FINDINGS: THORACIC SPINE: Incidental small hiatal hernia. Moderate to advanced spondylotic change within the cervical spine. Disc osteophyte complexes contribu te to mild to moderate spinal canal stenoses throughout, particularly at C4-C5 and C5-C6. There is moderate multilevel degenerative disc disease characterized by desiccated, narrowed, and bul ging discs throughout the thoracic spine. Accentuated mid thoracic kyphosis. There is a superior endplate note of T11. Minimal increased fluid signal is present at the level with Schmorl's node. Findings could reflect a subacute injury. Otherwise, vertebral body heights are preserved and alignment is maintained. Posterior disc osteophyte complexes at multiple levels impress on the ventral thecal sac, narrowing t he spinal canal at multiple levels, but but not contributing to any significant spinal canal stenosis . A few scattered benign fatty matrix hemangiomas are present. No abnormal bone marrow replacement. There is some edematous Modic type I endplate change at T8-T9 related to the degenerative disc diseas e. Ligamentum flavum thickening particularly in the lower thoracic spine and scattered facet arthropathy . On the left, changes result in mild multilevel neural foraminal narrowing especially T8-T11 levels an d also at T2-T3. On the right, changes result in moderate neural foraminal stenosis at T9-T10 and T10-T11. Mild at a f ew levels suggests T4-T5 and T5-T6. Normal course and signal intensity of the thoracic spinal cord. LUMBAR SPINE: There is severe hypertrophic facet arthropathy throughout the lumbar spine with accentuated lower lum bar lordosis. Moderate multilevel degenerative disc disease with variable disc desiccation and disc b ulging. Severe ligamentum flavum thickening particularly at L3-L4 and L4-L5. Nearly grade 2 anterolisthesis L4-L5. Otherwise, there is trace grade 1 retrolisthesis L1-L2 and L2-L3. Trace grade 1 anterolisthesis L3-L4 and L5-S1. Prominent edema along the superior endplate of L4 with possible minimal indentation. No retropulsion into the ventral spinal canal. Possible early developing Schmorl's node or subtle nondepressed fractu re. Consider short interval follow-up to assess for any progression. Overall changes resulting in a moderate to severe focal spinal canal stenosis at L3-L4 and severe foc al spinal canal stenosis at L4-L5 where there is complete effacement of the thecal sac. Moderate spinal canal stenosis at L1-L2. On the right, resulting in moderate neuroforaminal stenosis at L1-L2 and L4-L5. On the left, changes result in moderate neuroforaminal stenosis at L1-L2 and mild at L3-L4. No prevertebral or paravertebral soft tissue modality seen. IMPRESSION: THORACIC SPINE: 1. NOTE: 11 RIB BEARING THORACIC VERTEBRAL BODIES. 2. MODERATE MULTILEVEL DEGENERATIVE DISC DISEASE WITH ACCENTUATED MIDTHORACIC KYPHOSIS. SOME LIGAMENT UM FLAVUM THICKENING IN THE LOWER THORACIC SPINE AND SCATTERED FACET ARTHROPATHY. 3. DISC OSTEOPHYTE COMPLEXES IMPRESS ONTO THE VENTRAL THECAL SAC AT MULTIPLE LEVELS CAUSING SOME NARR OWING OF THE SPINAL CANAL BUT NO SIGNIFICANT SPINAL CANAL STENOSIS. 4. POSSIBLE SUBACUTE SUPERIOR ENDPLATE SCHMORL'S NODE OF T11 GIVEN SMALL AMOUNT OF EDEMA HERE. WE ALS O NOTE SOME EDEMATOUS MODIC TYPE I ENDPLATE CHANGE AT T8-T9 RELATED TO THE DEGENERATIVE DISC DISEASE. 5. INCIDENTAL: SMALL HIATAL HERNIA. LUMBAR SPINE: 6. Moderate multilevel disc/endplate degenerative change. Severe hypertrophic facet arthropathy. Radha re ligamentum flavum thickening particularly at L3-L4 and L4-L5. 7. Nearly grade 2 anterolisthesis at L4-L5. Additional degenerative grade 1 spondylolisthesis L1-L2, L2-L3, L3-L4, and L5-S1. 6. Prominent edema along the superior aspect of the L4 vertebral body. Early compression fracture or early Schmorl's node are considered. No significant vertebral body height loss or retropulsion into t he spinal canal at this time. Consider short interval follow-up to assess for any progression. 7. Overall changes result in severe focal spinal canal stenosis at L4-L5 where there is complete effa cement of the thecal sac. Moderate to severe at L3-L4. Moderate at L1-L2. 8. Variable mild to moderate neuroforaminal stenoses as outlined above.
== END | disposition home or self-care (01) ==
LOC: RADMRIMAIN 11:26
PROVIDERS: ATTEND Orthopaedic Surgery Orthopaedic Surgery of the Spine
DX: M43.16 Spondylolisthesis, lumbar region (principal); M51.17 Intervertebral disc disorders with radiculopathy, lumbosacral region; M51.16 Intervertebral disc disorders with radiculopathy, lumbar region; M41.86 Other forms of scoliosis, lumbar region; M48.062 Spinal stenosis, lumbar region with neurogenic claudication; M47.26 Other spondylosis with radiculopathy, lumbar region; R29.2 Abnormal reflex; E66.9 Obesity, unspecified
CPT/HCPCS: 72146; 72148

== ENCOUNTER → 2022-12-31 | Outpatient (CLI) | payer MEDICARE ==
--- NOTE | 2022-12-31 11:49 | XR ---
EXAMINATION TYPE: XR chest 2V DATE OF EXAM: 12/31/2022 10:52 AM COMPARISON: Chest radiographs from 12/23/2018 TECHNIQUE: XR chest 2V Frontal and lateral views of the chest. CLINICAL INDICATION:Female, 82 years old with history of Z01.818; FINDINGS: Lungs/Pleura: Prominent interstitial lung markings are seen scattered throughout the lungs. No eviden ce of focal consolidation, pneumothorax or pleural effusion. Pulmonary vascularity: Unremarkable. Heart/mediastinum: Cardiomediastinal silhouette is unremarkable. Musculoskeletal: Multiple level degenerative disc disease changes seen throughout the spine. IMPRESSION: No acute cardiopulmonary disease/process.
== END | disposition home or self-care (01) ==
LOC: RADXRMAIN 10:26
PROVIDERS: ATTEND Orthopaedic Surgery Orthopaedic Surgery of the Spine
DX: Z01.818 Encounter for other preprocedural examination (principal); M48.061 Spinal stenosis, lumbar region without neurogenic claudication
CPT/HCPCS: 71046; 80048; 81001; 85025; 85610; 85730; 86850; 86900; 86901; 87070; 93005

== ENCOUNTER 2023-01-05 05:49 | Observation (INO) | payer MEDICARE ==
[2022-12-31 12:34] LABS: INR 0.9 (<1.2); Partial Thromboplastin Time 22.2 sec (22.0-30.0); Prothrombin Time 9.7 sec (9.0-12.0)
[2022-12-31 13:17] VITALS: BMI 23.6
[2022-12-31 15:39] LABS: BUN/Creat Ratio 26.83 Ratio (12.00-20.00); Blood Urea Nitrogen 16.1 mg/dL (9.0-27.0); Calcium 9.4 mg/dL (8.7-10.3); Carbon Dioxide 27.9 mmol/L (21.6-31.8); Chloride 106 mmol/L (96-109); Glucose 95 mg/dL (70-110); Potassium 4.4 mmol/L (3.5-5.5); Sodium 143 mmol/L (135-145)
[2022-12-31 16:04] LABS: Basophils # (A) 0.02 X 10*3/uL (0.00-0.10); Basophils % (A) 0.4 %; HCT 38.9 % (37.2-46.3); Lymphocytes # (A) 1.37 X 10*3/uL (0.90-5.00); Lymphocytes % (A) 28.1 %; MCH 27.3 pg (27.0-32.0); MCHC 30.8 d/dL (32.0-37.0); MCV 88.6 FL (80.0-97.0); Monocytes # (A) 0.38 X 10*3/uL (0.20-1.00); Monocytes % (A) 7.8 %; NRBC Per 100 WBC 0 X 10*3/uL (0.00-0.01); Neutrophils # (A) 2.99 X 10*3/uL (1.80-7.70); Neutrophils % (A) 61.3 %; Platelet Count 182 X 10*3/uL (140-440); RBC 4.39 X 10*6/uL (4.10-5.20); RDW 14.3 % (11.5-14.5); WBC 4.88 X 10*3/uL (4.50-10.00)
[2022-12-31 17:43] LABS: Appearance,Urine Clear (Clear); Bilirubin,Urine Negative (Negative); Blood,Urine Negative (Negative); Color,Urine Dark Yellow (Yellow); Ketones,Urine Trace (Negative); Nitrite,Urine Negative (Negative); PH, Urine 5.5; Specific Gravity,Urine 1.032 (1.001-1.030)
[~2023-01-05 05:49] MED LIST changes: -IOPAMIDOL M200 10 ML VIAL ONE; -IV FLUID CONTINUATION 1,000 ML IV ONE; -LACTATED RINGERS 1,000 ML IV SCH; -LIDOCAINE 1% (10MG/ML) FOR IV START INTRADERMA PRN; -MIDAZOLAM 2 MG/2 ML VIAL ONE; +ceFAZolin 1,000 MG in SODIUM CHLORIDE 0.9% IRRIGATIO 1,000 ML IRRIGATION PRN; -fentaNYL (PF) 50 MCG/ML 2 ML AMP ONE; -methylPREDNISolone ACETATE 40 MG/ML 1 ML VIAL ONE
[2023-01-05] MEDS ORDERED: LIDOCAINE 1% (10MG/ML) FOR IV START INTRADERMA PRN (06:29)
[2023-01-05] MEDS ORDERED: MIDAZOLAM 2 MG/2 ML VIAL IV PRN (06:29)
[2023-01-05] MEDS ORDERED: ONDANSETRON 4 MG/2 ML VIAL IVP ONE ×3 (06:29→06:49)
[2023-01-05] MEDS ORDERED: LACTATED RINGERS 1,000 ML IV SCH (06:29)
[2023-01-05] MEDS ORDERED: DEXAMETHASONE SOD PHOSPHATE 4 MG/ML 1 ML VIAL IV ONE (06:29)
[2023-01-05] MEDS ORDERED: HYDROmorphone 0.5 MG/0.5 ML SYRINGE IVP PRN ×2 (06:29→10:59)
[2023-01-05] MEDS ORDERED: LACTATED RINGERS 1,000 ML IV ONE ×3 (06:34→09:54)
[2023-01-05] MEDS ORDERED: MIDAZOLAM 2 MG/2 ML VIAL IVP ONE (06:49)
[2023-01-05] MEDS ORDERED: SUCCINYLCHOLINE CHLORIDE 200 MG/10 ML VIAL IV ONE (07:28)
[2023-01-05] MEDS ORDERED: KETAMINE 10 MG/ML 20 ML VIAL ONE (07:28)
[2023-01-05] MEDS ORDERED: PHENYLEPHRINE-0.9% NACL SYG 1,000 MCG/10 ML SYRINGE ONE (07:28)
[2023-01-05] MEDS ORDERED: LIDOCAINE 2% INJ 20 MG/ML (2 ML VIAL) ONE (07:28)
[2023-01-05] MEDS ORDERED: ePHEDrine 50 MG/ML 1 ML VIAL ONE (07:28)
[2023-01-05] MEDS ORDERED: fentaNYL (PF) 50 MCG/ML 2 ML AMP ONE (07:28)
[2023-01-05] MEDS ORDERED: PROPOFOL 10 MG/ML 20 ML VIAL IV ONE (07:28)
[2023-01-05] MEDS ORDERED: HEPARIN SODIUM,PORCINE 10,000 UNIT/ML 1 ML VIAL ONE (07:28)
[2023-01-05] MEDS ORDERED: SODIUM CHLORIDE 0.9% IRRIG 1,000 ML BTL IRRIGATION ONE (07:28)
[2023-01-05] MEDS ORDERED: HYDROmorphone (PF) 1 MG/ML ONE (07:28)
[2023-01-05] MEDS ORDERED: ROCURONIUM 10 MG/ML (5 ML VIAL) IV ONE (07:28)
[2023-01-05] MEDS ORDERED: THROMBIN (BOVINE) 5,000 UNIT VIAL MISCELLANE ONE (07:59)
[2023-01-05] MEDS ORDERED: GELATIN SPONGE,ABSORB (LARGE) 1 EACH SPONGE MISCELLANE ONE (08:00)
[2023-01-05] MEDS ORDERED: BUPIVACAINE (PF) 0.25% 30 ML VIAL SQ ONE ×2 (08:00→08:07)
[2023-01-05] MEDS ORDERED: LIDOCAINE 2%-EPI 1:100,000 20 ML VIAL SQ ONE ×2 (08:01→08:07)
[2023-01-05] MEDS ORDERED: HYDROmorphone 1 MG/ML 1 ML SYRINGE IVP PRN (10:59)
[2023-01-05] MEDS ORDERED: BENZOCAINE/MENTHOL LOZENG 1 EACH LOZENGE MUCOUS MEM PRN (10:59)
[2023-01-05] MEDS ORDERED: ONDANSETRON 4 MG/2 ML VIAL IVP PRN (11:00)
[2023-01-05] MEDS ORDERED: ALPRAZolam 0.25 MG TAB PO PRN (11:02)
--- NOTE | 2023-01-05 11:15 | P.OP ---
Date of Procedure: 01/05/23 Preoperative Diagnosis: Severe spinal stenosis L3 4 L4 5, spondylolisthesis L3 4 L4 5, neurogenic claudication, lower extremity radiculopathy, facet arthrosis, low back pain, degenerative spondylosis Postoperative Diagnosis: Same Anesthesia: GETA Pathology: none sent Condition: stable Disposition: PACU Description of Procedure: BRIEF OPERATIVE NOTE Preoperative Diagnosis:Severe spinal stenosis L3 4 L4 5, spondylolisthesis L3 4 L4 5, neurogenic claudication, lower extremity radiculopathy, facet arthrosis, low back pain, degenerative spondylosis Postoperative Diagnosis:Severe spinal stenosis L3 4 L4 5, spondylolisthesis L3 4 L4 5, neurogenic claudication, lower extremity radiculopathy, facet arthrosis, low back pain, degenerative spondylosis Procedure: Laminectomy and decompression with wide bilateral foraminotomy and facetectomy L3 4 L4 5 Posterior lateral decompression and fusion L3 4 L[address] guided intraoperative Zima navigation system for placement of pedicle screws L3 4 and 5- assist for fusion Local autogenous bone grafting Use of Cell Saver Use of bone graft extenders Use of neuro monitoring Harvesting of bone marrow aspirate via the pedicle of L3 on the right to be used as an adjunct for fusion Surgeon: Dr. Bobo Medicine Assistant: Cristiano Watson is present throughout the entire the case persistence during positioning, dissection, exposure, visualization, and all crucial elements of the case as well as closure. Anesthesia: General anesthesia per Dr. Mcdermott Estimated blood loss: Approximately 450 mL with 150 given back through Cell Saver Complications: None apparent Components implanted: Jaylan K2M [place] pedicle screw system with 6 screws measuring 6.5 x 50 mm and 2 rods measuring 70 mm and one cross-link with allograft bone strips to supplemental local autogenous bone graft Disposition: To recovery room in good stable condition. OPERATIVE INDICATIONS The patient has had long-standing issues in their lower back and lower extremities. The patient has been through conservative treatment. She is not having evidence of severe central and bilateral foraminal stenosis at L3 4 and L4 5 as well as dynamic spondylolisthesis L3 4 L4 5. These correlated very well with her low back and lower extremity symptoms. The patient was having miserable pain and great difficulty with any sort of ambulation due to her stenosis An spondylolisthesis with severe denied degenerative spondylosis. We discussed various treatment options including surgery, and the patient wishes to proceed with surgery We discussed the risk, patient's alternatives and benefits of surgery including but not limited to, risk of bleeding risk of infection, risk of need for further surgery, risk of decreased, loss of motion, muscle function, malunion nonunion, hardware failure, nerve damage, paralysis, heart attack, blindness and . OPERATIVE SUMMARY After discussing all the risks, patient alternatives and benefits at length, the patient elected to proceed with surgical intervention, signed informed consent, and presented for their procedure. The patient was seen and examined in the preoperative holding area and the surgical site was marked. The patient was given antibiotics and brought to the operating room. The patient was sedated and intubated by anesthesia in standard fashion. The patient was positioned on to the operating room table in a prone position on the appropriate frame which was well-padded and well molded. We were careful to pad any bony prominences and pressure points. We were careful to maintain the patient's cervical spine and good neutral alignment and position throughout. The patient was prepped and draped in a normal standard fashion. An appropriate timeout and keystone protocol performed. We were able to proceed with the surgery. The local wound area was infiltrated with local anesthetic. An incision was made at the midline longitudinally over the appropriate levels at L3 4 and 5. Dissection was taken down subcutaneously to the level of the fascia which was split midline. Dissection was taken over the lamina bilaterally over the facet joints and to the transverse processes. Intraoperative x-ray was taken which showed a marker at the appropriate level at L4. With the appropriate level positively confirmed, we were able to proceed with placement of the pedicle holes and screws. The patient had all their twitches back. The wound was copiously irrigated and suctioned dry as had been done periodically throughout the case. I used the same CT guided navigation system to establish screw holes in sites for the pedicle screws at L3-L4 and L5. A navigation tracker was placed over the hard bone at L5 spinous process and secured appropriately. Intraoperatively we then placed the appropriate draping and ran a slight CT-guided been to establish guidance appropriately. With this accomplished I was then able to utilize the CT guidance with the navigation system and establish screw sites at L3-L4 and L5 bilaterally. This is done live with C-arm guidance in the operating room at each of the sites at L3-L4 and L5 . at L3 on the right I anny approximately 10 mL of bone marrow aspirate for use later in the case to supplemental local autogenous bone graft. Screw holes were established similarly at each level. The transverse process or sacral ala was decorticated with a high-speed bur. I was able to use these holes to place the appropriate size screw and good alignment and good position with good bony purchase. When the screws were inserted there were stimulated, and found to have no stimulation at 20 mA. the screws actually had good purchase at each l evel bilaterally. I was able to turn my attention to the decompression. The patient has severe central and bilateral foraminal stenosis at each of the levels and great care was taken during the decompression for laminectomy decompression with foraminotomy and partial facetectomy to assist with the decompression at L3 4 and L4 5 bilaterally. decompression was performed with a combination of sana eurs, curettes, Kerrison rongeurs and a ball-tip feeler. All of the bone that was removed was stripped and morcellized for use as autogenous bone graft later in the case. I was able to obtain excellent central decompression as well as wide bilateral foraminal decompression. There is no evidence of dural tear or leak. Good hemostasis was maintained. The wound was irrigated and suctioned dry. With the hardware intact, intraoperative x-ray was again taken which showed good alignment and position of the hardware at the appropriate levels at L3-L4 and L5. We were then able to measure, contour and place the rods and appropriate hardware bilaterally. I was able to place capcrews, tighten them down, and torque them off appropriately. With this intact I was able to place the local otitis bone graft with additional bone graft enhancer as necessary into the posterior lateral gutters bilaterally. With the bone graft intact, a stable construct, and good decompression at the appropriate levels, we were able to proceed with closure. Good hemostasis was maintained. There is no evidence of dural tear or leak. The fascia was closed for a watertight closure. The subcutaneous tissue was closed over a superficial drain. The subcuticular tissue was closed with absorbable suture. The wound was cleaned and dried and dressed with the appropriate dressing. The drapes were broken down. The patient was gently rolled back onto their hospital bed being careful to maintain their cervical spine and good neutral alignment and position. They were woken up by anesthesia, extubated, and brought to the recovery room in good stable condition. The patient will be admitted to the hospital for appropriate postoperative care, medical management and monitoring. We will continue to follow them closely about the postoperative course.
[2023-01-05] MEDS ORDERED: diphenhydrAMINE 50 MG/ML 1 ML VIAL IVP ONE (11:39)
--- NOTE | 2023-01-05 13:00 | FL ---
Intraoperative/procedural fluoroscopic services were provided. Total fluoroscopy time is 0.2 minutes with images are supplemented to PACS. Please see the operative/procedural note for further details. DAP: 1406 cGycm2
[2023-01-05] MEDS: SODIUM CHLORIDE 0.9% 1,000 ML IV SCH (13:52)
[2023-01-05] MEDS: CYCLOBENZAPRINE 5 MG TAB PO PRN ×2 (14:20→22:04)
[2023-01-05] MEDS: HYDROcodone/APAP 5-325MG 1 EACH TAB PO PRN ×2 (14:20→19:47)
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
[2023-01-05] MEDS: GABAPENTIN 300 MG CAP PO SCH (20:30)
[2023-01-05] MEDS: rOPINIRole HCL 4 MG TABLET PO SCH (20:30)
[2023-01-05] MEDS: PANTOPRAZOLE 40 MG TABLET PO SCH (20:30)
[2023-01-06] MEDS: SODIUM CHLORIDE 0.9% 1,000 ML IV SCH ×2 (02:30→04:10)
[2023-01-06] MEDS: HYDROcodone/APAP 7.5-325MG 1 EACH TAB PO PRN ×3 (04:08→20:09)
[2023-01-06 06:36] LABS: Basophils % (A) 0 %; Eosinophils # (A) 0.1 k/uL (0-0.7); Eosinophils % (A) 1 %; HCT 30.4 % (34.0-46.0); HGB 9.6 gm/dL (11.4-16.0); Hypochromasia Slight; Lymphocytes # (A) 0.6 k/uL (1.0-4.8); Lymphocytes % (A) 9 %; MCH 28.2 pg (25.0-35.0); MCHC 31.5 g/dL (31.0-37.0); MCV 89.4 fL (80.0-100.0); Monocytes # (A) 0.4 k/uL (0-1.0); Monocytes % (A) 6 %; Neutrophils # (A) 5.3 k/uL (1.3-7.7); Neutrophils % (A) 83 %; Platelet Count 137 k/uL (150-450); RDW 14.4 % (11.5-15.5); WBC 6.4 k/uL (3.8-10.6)
[2023-01-06 06:49] LABS: African American GFR (CKD) >90 (>60 ml/min/1.73 sqM); Anion Gap 2 mmol/L; Blood Urea Nitrogen 16 mg/dL (7-17); Calcium 7.5 mg/dL (8.4-10.2); Carbon Dioxide 27 mmol/L (22-30); Chloride 108 mmol/L (98-107); Glucose 119 mg/dL (74-99); Non-African American GFR(CKD) 82 (>60 ml/min/1.73 sqM); Potassium 3.8 mmol/L (3.5-5.1); Sodium 137 mmol/L (137-145)
[2023-01-06] MEDS: rOPINIRole HCL 4 MG TABLET PO SCH ×2 (08:15→20:10)
[2023-01-06] MEDS: PARoxetine 20 MG TAB PO SCH ×2 (08:15→08:26)
[2023-01-06] MEDS: ASPIRIN 81 MG PO SCH (08:15)
[2023-01-06] MEDS: ATORVASTATIN 40 MG TAB PO SCH (08:15)
[2023-01-06] MEDS: PANTOPRAZOLE 40 MG TABLET PO SCH ×2 (08:15→20:10)
[2023-01-06] MEDS: SENNOSIDES-DOCUSATE SODIUM 1 EACH TAB PO SCH (08:16)
[2023-01-06] MEDS: CYCLOBENZAPRINE 5 MG TAB PO PRN (08:27)
--- NOTE | 2023-01-06 08:42 | P.PN ---
Progress Note - Text Progress Note Date: 01/06/23 Postoperative day #1 Patient is seen and examined today at bedside. The patient has some pain around the surgical site as expected. Pain is being controlled with medication. She was already able to get up into her chair yesterday. She has already been up to the bathroom. She says her legs are doing very well but she is having some pain at her back Her drain inadvertently came out last night but she has not had any active drainage Physical Exam Afebrile with stable vital signs Abdomen is soft nontender. Chest has good excursion deep and space expiration The incision site is clean dry and intact. No erythema there is no purulence. The site appears clear with some very scant amount of blood. Extremities have not had neurologic change from prior to surgery. She has sustained dorsal to plantar flexion and EHL intact Calves and thighs were soft nontender without evidence of DVT. Assessment/Plan Postoperative day #1 status post open decompression and fusion L3 4 L4 5 for her severe spinal stenosis with spondylolisthesis and lower extremity radiculopathy and weakness Patient is progressing as expected from the surgery. Her legs are doing well but she has some pain at her back as expected. She has a brace at home and her family is bringing that in for her to utilize wh ile she is doing activities and in therapy. She may get up without the brace. We will continue to increase the patient's mobilization with therapy. We will continue pain control with oral or IV medications. We'll continue to follow patient closely.
[2023-01-06] MEDS ORDERED: LOSARTAN 50 MG TAB PO SCH (09:00)
[2023-01-06] MEDS: GABAPENTIN 300 MG CAP PO SCH (20:10)
--- NOTE | 2023-01-07 04:01 | P.PN ---
Subjective Progress Note Date: 01/06/23 - Reason for Consult Perioperative complication management - History of Present Illness 82-year-old female admitted for a severe spinal stenosis and laminectomy and decompression of L3-L5 postoperatively patient is clinically well doing well except for slight dry dizziness denied any pain at this time. Patient blood pressure is low normal expected postoperatively 01/06/2023 Patient is seen and evaluated in follow-up today currently sitting up in the chair lethargic although arousable. Patient has been receiving IV pain medications and given patient's age would recommend oral narcotics with Tylenol as needed. Blood pressure improving and will continue to monitor. Patient is afebrile and denies nausea or vomiting. Encouraged oral intake as patient is not eating much. Sluggish bowel sounds noted and would encourage increase activity as tolerated. Patient is afebrile with no reported chest pain or shortness of breath. Would recommend rehab although patient is not really agreeable to this at this point. Review of systems: Constitutional: No reports of fatigue, fever, or chills Cardiovascular: No reports of chest pain or palpitations Respiratory: No reports of shortness of breath or cough GI: No reports of nausea, vomiting, or diarrhea : No reports of dysuria or retention Neurovascular: reports of generalized weakness with some lower back pain All medications have been reviewed PHYSICAL EXAMINATION: GENERAL: The patient is asleep although arousable, alert and oriented x2-3, not in any acute distress. Well developed, well nourished. HEENT: Pupils are round and equally reacting to light. EOMI. No scleral icterus. No conjunctival pallor. Normocephalic, atraumatic. No pharyngeal erythema. No thyromegaly. CARDIOVASCULAR: S1 and S2 present. No rubs, or gallops. Grade 2/6 systolic murmur in aortic area PULMONARY: Diminished otherwise Chest is clear to auscultation, no wheezing or crackles. ABDOMEN: Soft, nontender, nondistended, sluggish bowel sounds. No palpable organomegaly. MUSCULOSKELETAL: Deferred to orthopedic surgery EXTREMITIES: No cyanosis, clubbing, or pedal edema. NEUROLOGICAL: Gross neurological examination did not reveal any focal deficits. Diffusely weak SKIN: No rashes. Assessment: -Lumbar laminectomy and decompression with fusion of L3-5 -Hypertension history and patient is currently normotensive recommending holding losartan -Restless leg syndrome -Hyperlipidemia -Gastroesophageal reflux disease -CVA/TIA in the past -GI prophylaxis -DVT prophylaxis: As per primary service -Full code Plan: Recommend to continue with current medications and management per orthopedic services with restrictions per Dr. Bobo Encouraged oral intake and increased activity Incentive spirometer at bedside and encourage patient to continue using at least 10 times every hour while awake Recommend limiting narcotic agents as patient is lethargic and also given patient's age Encouraged oral intake We will continue to follow with orthopedics during hospitalization. Thank you kindly for this consultation. The impression and plan of care has been dictated by Amanda Mata, Nurse Practitioner as directed. Dr. Samra MD I have performed a history and examination and MDM of this patient, discussed the same with the dictator, and agree with the dictator's assessment and plan as written ,documented as a scribe. Based on total visit time, I have performed more than 50% of the visit. Objective - Vital Signs Vital signs: Vital Signs Temp 97.2 F L 01/06/23 07:05 Pulse 86 01/06/23 07:05 Resp 16 01/06/23 07:05 BP 97/52 01/06/23 07:05 Pulse Ox 97 01/06/23 07:05 FiO2 Intake & Output 01/05/23 01/06/23 01/06/23 18:59 06:59 18:59 Intake Total 2402 Output Total 920 935 Balance 1482 -935 Weight 67.2 kg Intake: IV 2402 Output: Drainage 90 Back 90 Urine 380 935 Uretheral (Coelho) 185 Estimated Blood Loss 450 Other: Voiding Method Indwelling Catheter Indwelling Catheter - Labs CBC & Chem 7: 01/06/23 05:57 01/06/23 05:57 Labs: Abnormal Lab Results - Last 24 Hours (Table) 01/06/23 01/06/23 Range/Units 05:57 05:57 RBC 3.40 L (3.80-5.40) m/uL Hgb 9.6 L (11.4-16.0) gm/dL Hct 30.4 L (34.0-46.0) % Plt Count 137 L (150-450) k/uL Lymphocytes # 0.6 L (1.0-4.8) k/uL Chloride 108 H (98-107) mmol/L Glucose 119 H (74-99) mg/dL Calcium 7.5 L (8.4-10.2) mg/dL
[2023-01-07] MEDS: SODIUM CHLORIDE 0.9% 1,000 ML IV SCH (08:06)
--- NOTE | 2023-01-07 09:03 | P.PN ---
Progress Note - Text Progress Note Date: 01/07/23 Orthopedic Spine History of present illness: Patient is a pleasant 82-year-old female who is seen and examined at the bedside following open L3-4 and L4-5 posterior lateral decompression and fusion performed Tuesday. Patient states they are doing well post operatively. She does continue to have some pain in her pain has been controlled with alternating oral and IV medications. We did discuss her plan to try to discontinue her IV pain medications and convert her to oral medications for possible discharge home tomorrow. Coelho catheter has been discontinued. Patient has been able to increase her mobility. She does continue to require assistance. She is ambulating with assistance of a walker. Currently does not complain of nausea, vomiting, fever, or chills. She continues to be seen and examined by medicine for her multiple other medical diagnoses. Surgical dressing has been changed and is clean, dry, and intact. Hemovac drain was discontinued. Physical Exam Lumbar Fusion: Status post surgical day number 2 Patient is awake, alert, and oriented 3 Vital signs stable Adequate chest excursion with deep inspiration and expiration Dorsiflexion, plantarflexion, and extensor hallucis longus positive sustained bi laterally No signs or symptoms of DVT; no calf pain; pneumatic cuffs intact bilateral lower extremities Surgical site dressing is clean, dry, and intact over the lumbar spine; no erythema, purulence, or signs of infection Neurovascularly intact bilaterally lower extremities Hemovac drain has been discontinued Assessment: Status post open L3-4 and L4-5 posterior lateral decompression and fusion Low back pain L3-4 and L4-5 spondylolisthesis L3-4 and L4-5 severe spinal stenosis Lower extremity radiculopathy Lumbar facet arthrosis Hypertension Hyperlipidemia History CVA/TIA Restless leg syndrome Plan: 1. Ambulate as tolerated; work with Physical Therapy to increase mobilization; she can continue utilizing a walker to aid in ambulation as needed. 2. Continue pain control with IV and oral medications; will plan to begin weaning the patient off of IV narcotic medication in anticipation for discharge home in the next 1-2 days. We will currently discontinue hydrocodone 7.5 mg/325 mg. We will add Percocet 5 mg/325 mg, 1 tab every 6 hours as needed for acute pain. We'll also discontinue cyclobenzaprine 5 mg. We will add baclofen 10 mg 1 tab 3 times a day, as needed for muscle spasm. MAPS has been reviewed today, 01/07/2023, with an Overall Overdose Risk Score of 310. An "Opiod Start Talking" Form has been signed and placed in the patient's chart. A prescription has been written for Percocet 5 mg/325 mg, take 1 tab every 6 hours as needed for acute pain, dispensed #28. Patient is also given a prescription for baclofen 10 mg, take one tablet every 8 hours as needed for muscle spasm, dispensed #60 3. Dressings to remain intact. Dressing is currently clean and dry. We will plan to change the dressing tomorrow, 01/08/2023, to a nonstick Telfa and Tegaderm prior to discharge home. Patient may shower without dressing intact for 3 days. Dressing may be removed on 01/11/2023. 4. Medical management can continue to manage patient for patient's other medical diagnoses including hypertension, hyperlipidemia, restless leg syndrome, and history of CVA/TIA. 5. We will continue to follow the patient closely; depending on the patient's progress, we may plan for discharge home as early as tomorrow, 01/08/2023. 6. Patient can follow-up with Cristiano Laura PA-C or Dr. John Bobo at [facility] in 2-3 weeks following discharge
[2023-01-07] MEDS: PARoxetine 20 MG TAB PO SCH (09:21)
[2023-01-07] MEDS: ASPIRIN 81 MG PO SCH (09:21)
[2023-01-07] MEDS: rOPINIRole HCL 4 MG TABLET PO SCH ×2 (09:21→19:49)
[2023-01-07] MEDS: LOSARTAN 50 MG TAB PO SCH (09:22)
[2023-01-07] MEDS: BACLOFEN 10 MG TAB PO PRN ×2 (09:22→14:58)
[2023-01-07] MEDS: ATORVASTATIN 40 MG TAB PO SCH (09:22)
[2023-01-07] MEDS: oxyCODONE-APAP 5-325MG 1 EACH TAB PO PRN ×3 (09:22→21:33)
[2023-01-07] MEDS: SENNOSIDES-DOCUSATE SODIUM 1 EACH TAB PO SCH (09:22)
[2023-01-07] MEDS: PANTOPRAZOLE 40 MG TABLET PO SCH ×2 (09:22→19:49)
[2023-01-07] MEDS: GABAPENTIN 300 MG CAP PO SCH (19:49)
--- NOTE | 2023-01-07 21:30 | P.PN ---
Subjective Progress Note Date: 01/07/23 - Reason for Consult Perioperative complication management - History of Present Illness 82-year-old female admitted for a severe spinal stenosis and laminectomy and decompression of L3-L5 postoperatively patient is clinically well doing well except for slight dry dizziness denied any pain at this time. Patient blood pressure is low normal expected postoperatively 01/06/2023 Patient is seen and evaluated in follow-up today currently sitting up in the chair lethargic although arousable. Patient has been receiving IV pain medications and given patient's age would recommend oral narcotics with Tylenol as needed. Blood pressure improving and will continue to monitor. Patient is afebrile and denies nausea or vomiting. Encouraged oral intake as patient is not eating much. Sluggish bowel sounds noted and would encourage increase activity as tolerated. Patient is afebrile with no reported chest pain or shortness of breath. Would recommend rehab although patient is not really agreeable to this at this point. 01/07/2023 Patient is seen and evaluated in follow-up this morning sleeping although easily arousable and alert and oriented. Per orthopedics working on weaning IV pain medications and recommend continuing with oral narcotic agents as patient is a lot more awake today. Patient reports is passing gas but no bowel movement as of yet. Patient working with physical therapy and initially refusing to go to rehab although is now agreeable with case management following working on ECF. Patient is afebrile with no reports of chest pain or shortness of breath noted. Patient reports to tolerating diet and no reported nausea or vomiting. Encourage the patient continue with restrictions per orthopedics and increased activity as tolerated Review of systems: Constitutional: No reports of fatigue, fever, or chills Cardiovascular: No reports of chest pain or palpitations Respiratory: No reports of shortness of breath or cough GI: No reports of nausea, vomiting, or diarrhea : No reports of dysuria or retention Neurovascular: reports of generalized weakness with some lower back pain All medications have been reviewed PHYSICAL EXAMINATION: GENERAL: The patient is asleep although arousable, alert and oriented x2-3, not in any acute distress. Well developed, well nourished. HEENT: Pupils are round and equally reacting to light. EOMI. No scleral icterus. No conjunctival pallor. Normocephalic, atraumatic. No pharyngeal erythema. No thyromegaly. CARDIOVASCULAR: S1 and S2 present. No rubs, or gallops. Grade 2/6 systolic murmur in aortic area PULMONARY: Diminished otherwise Chest is clear to auscultation, no wheezing or crackles. ABDOMEN: Soft, nontender, nondistended, sluggish bowel sounds. No palpable or ganomegaly. MUSCULOSKELETAL: Deferred to orthopedic surgery EXTREMITIES: No cyanosis, clubbing, or pedal edema. NEUROLOGICAL: Gross neurological examination did not reveal any focal deficits. Diffusely weak SKIN: No rashes. Assessment: -Lumbar laminectomy and decompression with fusion of L3-5 -Hypertension history, resume losartan -Restless leg syndrome -Hyperlipidemia -Gastroesophageal reflux disease -CVA/TIA in the past -GI prophylaxis -DVT prophylaxis: As per primary service -Full code Plan: Recommend to continue with current medications and management per orthopedic services with restrictions per Dr. Bobo Encouraged oral intake and increased activity Incentive spirometer at bedside and encourage patient to continue using at least 10 times every hour while awake Recommend limiting narcotic agents as patient is lethargic and also given patient's age. Orthopedics working on weaning IV pain medications Blood pressure mildly elevated will resume home dose of losartan Encouraged oral intake Case management is following and discussed with the patient about ECF and patient is now agreeable We will continue to follow with orthopedics during hospitalization. Thank you kindly for this consultation. The impression and plan of care has been dictated by Amanda Mata, Nurse Practitioner as directed. Dr. Samra MD I have performed a history and examination and MDM of this patient, discussed the same with the dictator, and agree with the dictator's assessment and plan as written ,documented as a scribe. Based on total visit time, I have performed more than 50% of the visit. Objective - Vital Signs Vital signs: Vital Signs Temp 99.6 F 01/07/23 07:06 Pulse 91 01/07/23 07:06 Resp 16 01/07/23 07:06 BP 160/77 01/07/23 07:06 Pulse Ox 95 01/07/23 07:06 FiO2 Intake & Output 01/06/23 01/07/23 01/07/23 18:59 06:59 18:59 Intake Total 600 Output Total 252 Balance 348 Intake: Intake, IV Titration 600 Amount Sodium Chloride 0.9% 1, 600 000 ml @ 20 mls/hr IV . Q24H [facility]UM[facility]KO Rx#:[id number] Output: Urine 252 Other: Voiding Method Bedside Commode # Voids 2 - Labs CBC & Chem 7: 01/06/23 05:57 01/06/23 05:57
[2023-01-08] MEDS: SODIUM CHLORIDE 0.9% 1,000 ML IV SCH (03:08)
[2023-01-08] MEDS: rOPINIRole HCL 4 MG TABLET PO SCH ×2 (07:55→19:50)
[2023-01-08] MEDS: ATORVASTATIN 40 MG TAB PO SCH (07:55)
[2023-01-08] MEDS: LOSARTAN 50 MG TAB PO SCH (07:55)
[2023-01-08] MEDS: PARoxetine 20 MG TAB PO SCH (07:55)
[2023-01-08] MEDS: SENNOSIDES-DOCUSATE SODIUM 1 EACH TAB PO SCH (07:55)
[2023-01-08] MEDS: BACLOFEN 10 MG TAB PO PRN ×2 (07:56→18:06)
[2023-01-08] MEDS: PANTOPRAZOLE 40 MG TABLET PO SCH ×2 (07:56→19:50)
[2023-01-08] MEDS: oxyCODONE-APAP 5-325MG 1 EACH TAB PO PRN ×2 (07:56→14:33)
[2023-01-08] MEDS: ASPIRIN 81 MG PO SCH (07:56)
--- NOTE | 2023-01-08 08:30 | P.PN ---
Progress Note - Text Progress Note Date: 01/08/23 Postoperative day #3 Patient is seen and examined today at bedside. The patient has some pain around the surgical site as expected. Pain is being controlled with medication. She is still having significant difficulty with trying to mobilize and get in and out of bed on her own. She denies any nausea vomiting. She is tolerating her diet. She is passing gas. She feels her legs are doing very well. Physical Exam Afebrile with stable vital signs Abdomen is soft nontender. Chest has good excursion deep and space expiration The incision site is clean dry and intact. No erythema there is no purulence. Incision sites clear Extremities have not had neurologic change from prior to surgery. She has sustained dorsal flexion plantar flexion and EHL Calves and thighs were soft nontender without evidence of DVT. Assessment/Plan Postoperative day #3 status post decompression fusion L3 4 L4 5 for her severe spinal stenosis with neurogenic claudication and lower extremity radiculopathy Patient is progressing as expected from the surgery. She feels her legs are doing very well and she is happy with how her numbness tingling is improving in her lower extremities. However she continues have significant pain in her back from her surgery and is having great difficulty with any sort of mobilization. She is getting slightly stronger but I think that she'll require snf or inpatient rehab after discharge. Case management is working on setting this up but it seems likely that this will not be able to occur until Tuesday. We will continue to increase the patient's mobilization with therapy. We will continue pain control with oral or IV medications. We'll continue to follow patient closely.
--- NOTE | 2023-01-08 15:58 | P.PN ---
Subjective Progress Note Date: 01/08/23 82-year-old female admitted for a severe spinal stenosis and laminectomy and decompression of L3-L5 postoperatively patient is clinically well doing well except for slight dry dizziness denied any pain at this time. Patient blood pressure is low normal expected postoperatively 01/06/2023 Patient is seen and evaluated in follow-up today currently sitting up in the chair lethargic although arousable. Patient has been receiving IV pain medications and given patient's age would recommend oral narcotics with Tylenol as needed. Blood pressure improving and will continue to monitor. Patient is afebrile and denies nausea or vomiting. Encouraged oral intake as patient is not eating much. Sluggish bowel sounds noted and would encourage increase activity as tolerated. Patient is afebrile with no reported chest pain or shortness of breath. Would recommend rehab although patient is not really agre eable to this at this point. 01/07/2023 Patient is seen and evaluated in follow-up this morning sleeping although easily arousable and alert and oriented. Per orthopedics working on weaning IV pain medications and recommend continuing with oral narcotic agents as patient is a lot more awake today. Patient reports is passing gas but no bowel movement as of yet. Patient working with physical therapy and initially refusing to go to rehab although is now agreeable with case management following working on ECF. Patient is afebrile with no reports of chest pain or shortness of breath noted. Patient reports to tolerating diet and no reported nausea or vomiting. Encourage the patient continue with restrictions per orthopedics and increased activity as tolerated 01/08/2023 Patient is evaluated today on the medical floor does report improved pain today. Has not had a bowel movement yet and passing some gas. No shortness of breath. Patient will be given miralax. Plan is for discharge to subacute rehab and this will not happen likely until tuesday as there is no case management or liason available on sundays for admission to rehab. Review of systems: Constitutional: No reports of fatigue, fever, or chills Cardiovascular: No reports of chest pain or palpitations Respiratory: No reports of shortness of breath or cough GI: No reports of nausea, vomiting, or diarrhea : No reports of dysuria or retention Neurovascular: reports of generalized weakness with some lower back pain All medications have been reviewed PHYSICAL EXAMINATION: GENERAL: The patient is asleep although arousable, alert and oriented x2-3, not in any acute distress. Well developed, well nourished. HEENT: Pupils are round and equally reacting to light. EOMI. No scleral icterus. No conjunctival pallor. Normocephalic, atraumatic. No pharyngeal erythema. No thyromegaly. CARDIOVASCULAR: S1 and S2 present. No rubs, or gallops. Grade 2/6 systolic murmur in aortic area PULMONARY: Diminished otherwise Chest is clear to auscultation, no wheezing or crackles. ABDOMEN: Soft, nontender, nondistended, sluggish bowel sounds. No palpable organomegaly. MUSCULOSKELETAL: Deferred to orthopedic surgery EXTREMITIES: No cyanosis, clubbing, or pedal edema. NEUROLOGICAL: Gross neurological examination did not reveal any focal deficits. Diffusely weak SKIN: No rashes. Assessment: -Lumbar laminectomy and decompression with fusion of L3-5 -Hypertension history, resume losartan improved -Constipation continues on senekot and miralax has been added. -Restless leg syndrome -Hyperlipidemia -Gastroesophageal reflux disease -CVA/TIA in the past -GI prophylaxis -DVT prophylaxis: As per primary service -Full code Plan: Recommend to continue with current medications and management per orthopedic services with restrictions per Dr. Bobo Encouraged oral intake and increased activity Incentive spirometer at bedside and encourage patient to continue using at least 10 times every hour while awake Recommend limiting narcotic agents as patient is lethargic and also given patient's age. Orthopedics working on weaning IV pain medications Encouraged oral intake Case management is following and discussed with the patient about ECF and patient is now agreeable discharged likely on tuesday as unable to DC to rehab on sundays. We will continue to follow with orthopedics during hospitalization. Thank you kindly for this consultation. The impression and plan of care has been dictated by Teresita Jones Nurse Practitioner as directed. Dr. Samra MD I have performed a history and physical examination and medical decision making of this patient, discussed the same with the dictator, and agree with the dictators assessment and plan as written, documented as a scribe. Based on total visit time, I have performed more than 50% of this visit. Objective - Vital Signs Vital signs: Vital Signs Temp 98.4 F 01/08/23 14:04 Pulse 69 01/08/23 14:04 Resp 18 01/08/23 14:04 BP 136/69 01/08/23 14:04 Pulse Ox 97 01/08/23 14:04 FiO2 Intake & Output 01/07/23 01/08/23 01/08/23 18:59 06:59 18:59 Intake Total 500 Balance 500 Intake: Oral 500 Other: # Voids 2 1 1 - Labs CBC & Chem 7: 01/06/23 05:57 01/06/23 05:57 Assessment and Plan Time with Patient: Less than 30
[2023-01-08] MEDS: polyethylene glycoL 3350 17 GM POWD.PACK PO SCH (17:10)
[2023-01-08] MEDS: GABAPENTIN 300 MG CAP PO SCH (19:50)
[2023-01-09] MEDS: SODIUM CHLORIDE 0.9% 1,000 ML IV SCH ×2 (03:34→22:01)
[2023-01-09] MEDS: oxyCODONE-APAP 5-325MG 1 EACH TAB PO PRN ×3 (05:38→18:27)
[2023-01-09] MEDS: BACLOFEN 10 MG TAB PO PRN ×2 (08:58→18:28)
[2023-01-09] MEDS: SENNOSIDES-DOCUSATE SODIUM 1 EACH TAB PO SCH (08:58)
[2023-01-09] MEDS: LOSARTAN 50 MG TAB PO SCH (08:59)
[2023-01-09] MEDS: ATORVASTATIN 40 MG TAB PO SCH (08:59)
[2023-01-09] MEDS: PARoxetine 20 MG TAB PO SCH (08:59)
[2023-01-09] MEDS: PANTOPRAZOLE 40 MG TABLET PO SCH ×2 (08:59→20:08)
[2023-01-09] MEDS: ASPIRIN 81 MG PO SCH (08:59)
[2023-01-09] MEDS: polyethylene glycoL 3350 17 GM POWD.PACK PO SCH (08:59)
[2023-01-09] MEDS: rOPINIRole HCL 4 MG TABLET PO SCH ×2 (09:10→20:08)
[2023-01-09] MEDS ORDERED: bisacodyL 10 MG SUPP RECTAL STA (10:21)
--- NOTE | 2023-01-09 12:48 | P.PN ---
Subjective Progress Note Date: 01/09/23 This patient is an 82-year-old female who is status-post decompression and fusion L3-4 L4-5 on 01/05/[address] Bobo. Today's postoperative day #4. The patient is examined bedside today. She states her low back is sore, although she feels she is mobilizing better today. Per nursing, she is ambulating with a walker to the bathroom with minimal assistance. Patient would like to discharge to rehab does not feel comfortable going home. She otherwise feels well and denies chest pain, shortness of ciera th, nausea, vomiting. Vital signs stable. Objective - Vital Signs Vital signs: Vital Signs Temp 98.7 F 01/09/23 07:25 Pulse 74 01/09/23 07:25 Resp 16 01/09/23 07:25 BP 167/104 01/09/23 07:25 Pulse Ox 95 01/09/23 07:25 FiO2 Intake & Output 01/08/23 01/09/23 01/09/23 18:59 06:59 18:59 Other: Voiding Method Toilet # Voids 1 1 1 # Bowel Movements 0 - Exam On examination, the patient is sitting up in bed in no apparent distress. She is alert and oriented 3. On inspection of her low back, there is a clean, dry, intact Optifoam surgical dressing in place. No bleeding or drainage through the dressing. No surrounding erythema or warmth. Motor and sensory function is intact of the bilateral lower extremities. Calves are soft and nontender to palpation bilaterally. - Labs CBC & Chem 7: 01/06/23 05:57 01/06/23 05:57 Assessment and Plan Assessment: Status-post decompression and fusion L3-4 L4-5 on 01/05/23. Post-operative day #4. Plan: - Patient may continue to mobilize as tolerated with a walker. Continue physical therapy. - Keep surgical dressing in place. - Continue pain medication as needed. - Internal medicine for barbara-operative medical management. - Case management consulted for discharge planning. Anticipate discharge to rehab possibly tomorrow.
--- NOTE | 2023-01-09 13:47 | P.PN ---
Subjective Progress Note Date: 01/09/23 82-year-old female admitted for a severe spinal stenosis and laminectomy and decompression of L3-L5 postoperatively patient is clinically well doing well except for slight dry dizziness denied any pain at this time. Patient blood pressure is low normal expected postoperatively 01/06/2023 Patient is seen and evaluated in follow-up today currently sitting up in the chair lethargic although arousable. Patient has been receiving IV pain medications and given patient's age would recommend oral narcotics with Tylenol as needed. Blood pressure improving and will continue to monitor. Patient is afebrile and denies nausea or vomiting. Encouraged oral intake as patient is not eating much. Sluggish bowel sounds noted and would encourage increase activity as tolerated. Patient is afebrile with no reported chest pain or shortness of breath. Would recommend rehab although patient is not really agre eable to this at this point. 01/07/2023 Patient is seen and evaluated in follow-up this morning sleeping although easily arousable and alert and oriented. Per orthopedics working on weaning IV pain medications and recommend continuing with oral narcotic agents as patient is a lot more awake today. Patient reports is passing gas but no bowel movement as of yet. Patient working with physical therapy and initially refusing to go to rehab although is now agreeable with case management following working on ECF. Patient is afebrile with no reports of chest pain or shortness of breath noted. Patient reports to tolerating diet and no reported nausea or vomiting. Encourage the patient continue with restrictions per orthopedics and increased activity as tolerated 01/08/2023 Patient is evaluated today on the medical floor does report improved pain today. Has not had a bowel movement yet and passing some gas. No shortness of breath. Patient will be given miralax. Plan is for discharge to subacute rehab and this will not happen likely until tuesday as there is no case management or liason available on sundays for admission to rehab. 01/09/2023 Patient is evaluated today sitting up in the shower, was able to shower. Reports pain has improved. Patient was given miralax and suppository and did have bowel movement. Plan is for rehab tomorrow. Review of systems: Constitutional: No reports of fatigue, fever, or chills Cardiovascular: No reports of chest pain or palpitations Respiratory: No reports of shortness of breath or cough GI: No reports of nausea, vomiting, or diarrhea : No reports of dysuria or retention Neurovascular: reports of generalized weakness with some lower back pain All medications have been reviewed PHYSICAL EXAMINATION: GENERAL: The patient is asleep although arousable, alert and oriented x2-3, not in any acute distress. Well developed, well nourished. HEENT: Pupils are round and equally reacting to light. EOMI. No scleral icterus. No conjunctival pallor. Normocephalic, atraumatic. No pharyngeal erythema. No thyromegaly. CARDIOVASCULAR: S1 and S2 present. No rubs, or gallops. Grade 2/6 systolic murmur in aortic area PULMONARY: Diminished otherwise Chest is clear to auscultation, no wheezing or crackles. ABDOMEN: Soft, nontender, nondistended, sluggish bowel sounds. No palpable organomegaly. MUSCULOSKELETAL: Deferred to orthopedic surgery EXTREMITIES: No cyanosis, clubbing, or pedal edema. NEUROLOGICAL: Gross neurological examination did not reveal any focal deficits. Diffusely weak SKIN: No rashes. Assessment: -Lumbar laminectomy and decompression with fusion of L3-5 -Hypertension history, resume losartan improved -Constipation resolved. -Restless leg syndrome -Hyperlipidemia -Gastroesophageal reflux disease -CVA/TIA in the past -GI prophylaxis -DVT prophylaxis: As per primary service -Full code Plan: Recommend to continue with current medications and management per orthopedic services with restrictions per Dr. Bobo Encouraged oral intake and increased activity Incentive spirometer at bedside and encourage patient to continue using at least 10 times every hour while awake Recommend limiting narcotic agents as patient is lethargic and also given patient's age. Orthopedics working on weaning IV pain medications Recommend to avoid narcotics at this time due to patients constipation. Encouraged oral intake Case management is following and discussed with the patient about ECF and patient is now agreeable discharged likely on tuesday as unable to DC to rehab on sundays. We will continue to follow with orthopedics during hospitalization. Thank you kindly for this consultation. The impression and plan of care has been dictated by Teresita Jones, Nurse Practitioner as directed. Dr. Samra MD I have performed a history and physical examination and medical decision making of this patient, discussed the same with the dictator, and agree with the dictators assessment and plan as written, documented as a scribe. Based on total visit time, I have performed more than 50% of this visit. Objective - Vital Signs Vital signs: Vital Signs Temp 98.7 F 01/09/23 07:25 Pulse 74 01/09/23 07:25 Resp 16 01/09/23 07:25 BP 167/104 01/09/23 07:25 Pulse Ox 95 01/09/23 07:25 FiO2 Intake & Output 01/08/23 01/09/23 01/09/23 18:59 06:59 18:59 Other: Voiding Method Toilet # Voids 1 1 1 # Bowel Movements 0 - Labs CBC & Chem 7: 01/06/23 05:57 01/06/23 05:57 Assessment and Plan Time with Patient: Less than 30
[2023-01-09] MEDS: GABAPENTIN 300 MG CAP PO SCH (20:08)
[2023-01-09] MEDS ORDERED: LOSARTAN 25 MG TAB PO SCH (21:00)
[2023-01-10] MEDS: oxyCODONE-APAP 5-325MG 1 EACH TAB PO PRN ×3 (04:08→18:50)
[2023-01-10] MEDS: BACLOFEN 10 MG TAB PO PRN ×3 (04:08→20:48)
[2023-01-10 07:12] LABS: Basophils % (A) 0 %; Eosinophils # (A) 0.2 k/uL (0-0.7); Eosinophils % (A) 3 %; HCT 28.2 % (34.0-46.0); HGB 9.2 gm/dL (11.4-16.0); Hypochromasia Slight; Lymphocytes # (A) 0.9 k/uL (1.0-4.8); Lymphocytes % (A) 19 %; MCH 28.9 pg (25.0-35.0); MCHC 32.5 g/dL (31.0-37.0); MCV 88.8 fL (80.0-100.0); Mean Platelet Volume 7.9; Monocytes # (A) 0.4 k/uL (0-1.0); Monocytes % (A) 9 %; Neutrophils # (A) 3.2 k/uL (1.3-7.7); Neutrophils % (A) 67 %; Platelet Count 184 k/uL (150-450); RBC 3.18 m/uL (3.80-5.40); RDW 14.2 % (11.5-15.5); WBC 4.8 k/uL (3.8-10.6)
[2023-01-10 07:46] LABS: African American GFR (CKD) >90 (>60 ml/min/1.73 sqM); Anion Gap 4 mmol/L; Blood Urea Nitrogen 9 mg/dL (7-17); Calcium 7.9 mg/dL (8.4-10.2); Carbon Dioxide 29 mmol/L (22-30); Chloride 105 mmol/L (98-107); Glucose 98 mg/dL (74-99); Magnesium 1.8 mg/dL (1.6-2.3); Non-African American GFR(CKD) 88 (>60 ml/min/1.73 sqM); Potassium 3.3 mmol/L (3.5-5.1); Sodium 138 mmol/L (137-145)
[2023-01-10] MEDS: rOPINIRole HCL 4 MG TABLET PO SCH ×2 (08:17→20:48)
[2023-01-10] MEDS: PANTOPRAZOLE 40 MG TABLET PO SCH ×2 (08:17→20:48)
[2023-01-10] MEDS: ATORVASTATIN 40 MG TAB PO SCH (08:17)
[2023-01-10] MEDS: LOSARTAN 50 MG TAB PO SCH (08:17)
[2023-01-10] MEDS: PARoxetine 20 MG TAB PO SCH (08:17)
[2023-01-10] MEDS: SENNOSIDES-DOCUSATE SODIUM 1 EACH TAB PO SCH (08:18)
[2023-01-10] MEDS: ASPIRIN 81 MG PO SCH (08:18)
[2023-01-10] MEDS: polyethylene glycoL 3350 17 GM POWD.PACK PO SCH (08:18)
--- NOTE | 2023-01-10 10:52 | P.DS ---
Providers Date of admission: 01/07/23 08:01 Expected date of discharge: 01/10/23 Attending physician: Kj Bobo Consults: 01/05/23 11:00 Consult Physician Routine Consulting Provider: Chuy Zamorano Consult Reason/Comments: Medical management Do you want consulting provider notified?: Yes Primary care physician: Vera Patel - Discharge Diagnosis(es) (1) Lumbar spinal stenosis Current Visit: Yes Status: Acute (2) Spondylolisthesis, lumbar region Current Visit: Yes Status: Acute (3) Lumbar degenerative disc disease Current Visit: Yes Status: Acute (4) Lumbar facet arthropathy Current Visit: Yes Status: Acute (5) Low back pain Current Visit: Yes Status: Acute (6) Radiculopathy with lower extremity symptoms Current Visit: Yes Status: Acute (7) Restless leg syndrome Current Visit: Yes Status: Acute (8) History of CVA (cerebrovascular accident) Current Visit: Yes Status: Acute (9) Hypertension Current Visit: Yes Status: Acute (10) Hyperlipidemia Current Visit: Yes Status: Acute Hospital Course: This is a pleasant 82-year-old female who presented with L3-4 and L4-5 spondylolisthesis and severe spinal canal stenosis, low back pain, lower extremity radiculopathy, and lumbar facet arthrosis who failed outpatient conservative therapy. She was admitted for an open L3-4 and L4-5 posterior lateral decompression and fusion. She initially had been progressing significantly slowly postoperatively. She has had improvement over the weekend. She does continue to feel she needs further rehab to increase her strength and mobility prior to discharge home. Case management is currently working to get her approved with authorization number for discharge to a rehabilitation facility today. This authorization isn't progress. Authorization does require PT/OT notes. We will plan for patient to be discharged today if authorization is received. If not, we would plan for discharge possibly tomorrow when this authorization is complete. Condition on day of discharge stable. Patient was cleared preoperatively for surgery by Dr. Patel. Patient currently denies any nausea, vomiting, fever, or chills. Patient is eating and voiding freely without difficulty. Patient may shower without a dressing intact at this time. Patient should refrain from driv ing until at least after their first follow-up appointment in the office. Patient should avoid excessive bending, lifting, and twisting; no lifting greater than 10 pounds. MAPS as previously reviewed on 01/07/2023 with an Overall Overdose Risk Score of 310. An "Opiod Start Talking" Form has been signed and placed in the patient's chart. A prescription has been written for Percocet 5 mg/325 mg, take 1 tab every 6 hours as needed for acute pain, dispensed #28. Patient is also given a prescription for baclofen 10 mg, take one tablet every 8 hours as needed for muscle spasm, dispensed #60. These medications are printed and placed in the patient's chart for discharge to a rehabilitation facility. Prescriptions also printed for gabapentin 600 mg, 1 tab nightly, dispense #7. This prescription is printed as required by the rehabilitation facility. Patient's other medical diagnoses include hypertension, hyperlipidemia, restless leg syndrome, and history of CVA/TIA. Patient will need clearance by medicine prior to discharge. Physical Exam on day of discharge: Status post surgical day number 5 Patient is awake, alert, and oriented 3 Vital signs stable Adequate chest excursion with deep inspiration and expiration Dorsiflexion, plantarflexion, and extensor hallucis longus positive sustained bilaterally No signs or symptoms of DVT; no calf pain; pneumatic cuffs intact bilateral lower extremities Surgical site dressing is clean, dry, and intact over the lumbar spine; no erythema, purulence, or signs of infection Dressing over the lumbar surgical site is removed No active drainage from the surgical site Mild bruising over the lumbar spine Neurovascularly intact bilaterally lower extremities Procedures: Open L3-4 and L4-5 posterior lateral decompression and fusion Patient Condition at Discharge: Stable Plan - Discharge Summary Discharge Rx Participant: Yes New Discharge Prescriptions: New Baclofen 10 mg PO TID PRN #60 tab PRN Reason: Spasms Gabapentin [Neurontin] 600 mg PO HS PRN #7 cap PRN Reason: Pain oxyCODONE-APAP 5-325MG [Percocet 5-325 mg] 1 tab PO Q6HR PRN #28 tab PRN Reason: Pain polyethylene glycoL 3350 [Miralax] 17 gm PO DAILY packet Sennosides-Docusate Sodium [Senokot-S] 1 each PO DAILY tab Continue PARoxetine [Paxil] 40 mg PO QAM Atorvastatin [Lipitor] 40 mg PO QAM Omeprazole [PriLOSEC] 40 mg PO BID Losartan Potassium 50 mg PO QAM Aspirin [Adult Low Dose Aspirin EC] 81 mg PO DAILY rOPINIRole HCL [Requip] 4 mg PO BID Gabapentin [Neurontin] 600 mg PO HS #3 cap Discontinued ALPRAZolam [Xanax] 0.25 mg PO BID PRN PRN Reason: Anxiety Hydrocodone/Acetaminophen [Hydrocodone/Acetaminophen 7.5-325] 1 tab PO Q6H PRN PRN Reason: Pain Discharge Medication List Atorvastatin [Lipitor] 40 mg PO QAM 08/04/18 [History] PARoxetine [Paxil] 40 mg PO QAM 08/04/18 [History] Omeprazole [PriLOSEC] 40 mg PO BID 10/03/19 [History] Losartan Potassium 50 mg PO QAM 08/19/20 [History] Aspirin [Adult Low Dose Aspirin EC] 81 mg PO DAILY 12/31/22 [History] rOPINIRole HCL [Requip] 4 mg PO BID 12/31/22 [History] Baclofen 10 mg PO TID PRN #60 tab 01/07/23 [Rx] oxyCODONE-APAP 5-325MG [Percocet 5-325 mg] 1 tab PO Q6HR PRN #28 tab 01/07/23 [Rx] Gabapentin [Neurontin] 600 mg PO HS #3 cap 01/08/23 [Rx] Sennosides-Docusate Sodium [Senokot-S] 1 each PO DAILY tab 01/08/23 [Rx] polyethylene glycoL 3350 [Miralax] 17 gm PO DAILY packet 01/08/23 [Rx] Gabapentin [Neurontin] 600 mg PO HS PRN #7 cap 01/10/23 [Rx] Follow up Appointment(s)/Referral(s): Cristiano Laura, EDITH [PHYSICIAN HOSPITAL PHARMACY TECHNICIAN] - 01/18/23 10:30 am (Patient may follow-up with Cristiano Laura PA-C or Dr. John Bobo at [facility] in 2-3 weeks following discharge. ) Activity/Diet/Wound Care/Special Instructions: 1. Patient may shower without a dressing intact. 2. Patient should refrain from driving until at least after their first follow- up appointment in the office. 3. Patient should avoid excessive bending, twisting, lifting; avoid overhead lifting; no lifting greater than 10 pounds 4. Take medications as prescribed 5. Patient should avoid anti-inflammatory medications over the next 6 weeks postoperatively 6. Patient may utilize walker to aid in ambulation as needed. 7. Do not soak in tub Discharge Disposition: TRANSFER TO SNF/ECF
[2023-01-10] MEDS: GABAPENTIN 300 MG CAP PO SCH (20:48)
[2023-01-11] MEDS: SODIUM CHLORIDE 0.9% 1,000 ML IV SCH (04:25)
[2023-01-11] MEDS: oxyCODONE-APAP 5-325MG 1 EACH TAB PO PRN ×2 (04:46→12:16)
--- NOTE | 2023-01-11 04:57 | P.PN ---
Subjective Progress Note Date: 01/10/23 - Reason for Consult Perioperative complication management - History of Present Illness 82-year-old female admitted for a severe spinal stenosis and laminectomy and decompression of L3-L5 postoperatively patient is clinically well doing well except for slight dry dizziness denied any pain at this time. Patient blood pressure is low normal expected postoperatively 01/06/2023 Patient is seen and evaluated in follow-up today currently sitting up in the chair lethargic although arousable. Patient has been receiving IV pain medications and given patient's age would recommend oral narcotics with Tylenol as needed. Blood pressure improving and will continue to monitor. Patient is afebrile and denies nausea or vomiting. Encouraged oral intake as patient is not eating much. Sluggish bowel sounds noted and would encourage increase activity as tolerated. Patient is afebrile with no reported chest pain or shortness of breath. Would recommend rehab although patient is not really agreeable to this at this point. 01/07/2023 Patient is seen and evaluated in follow-up this morning sleeping although easily arousable and alert and oriented. Per orthopedics working on weaning IV pain medications and recommend continuing with oral narcotic agents as patient is a lot more awake today. Patient reports is passing gas but no bowel movement as of yet. Patient working with physical therapy and initially refusing to go to rehab although is now agreeable with case management following working on ECF. Patient is afebrile with no reports of chest pain or shortness of breath noted. Patient reports to tolerating diet and no reported nausea or vomiting. Encourage the patient continue with restrictions per orthopedics and increased activity as tolerated 01/08/2023 Patient is evaluated today on the medical floor does report improved pain today. Has not had a bowel movement yet and passing some gas. No shortness of breath. Patient will be given miralax. Plan is for discharge to subacute rehab and this will not happen likely until tuesday as there is no case management or liason available on sundays for admission to rehab. 01/09/2023 Patient is evaluated today sitting up in the shower, was able to shower. Reports pain has improved. Patient was given miralax and suppository and did have bowel movement. Plan is for rehab tomorrow. 01/10/2023 Patient is seen and evaluated this morning currently awaiting insurance authorization with case management following along with orthopedics and plan is to go to [facility] once insurance authorization has been obtained. Patient is afebrile denies chest pain or shortness of breath and vital signs are stable. Appropriate home medications have been reviewed and resumed. Patient is maintained on Percocets for pain management and has not required IV Dilaudid in a few days. Patient was able to have a bowel movement and encouraged to increase activity as tolerated. Patient denies nausea or vomiting and is tolerating diet. Review of systems: Constitutional: No reports of fatigue, fever, or chills Cardiovascular: No reports of chest pain or palpitations Respiratory: No reports of shortness of breath or cough GI: No reports of nausea, vomiting, or diarrhea : No reports of dysuria or retention Neurovascular: reports of generalized weakness with some lower back pain alth ough is improving All medications have been reviewed PHYSICAL EXAMINATION: GENERAL: The patient is awake, alert and oriented x3,. Well developed, well nourished. HEENT: Pupils are round and equally reacting to light. EOMI. No scleral icterus. No conjunctival pallor. Normocephalic, atraumatic. No pharyngeal erythema. No thyromegaly. CARDIOVASCULAR: S1 and S2 present. No rubs, or gallops. Grade 2/6 systolic murmur in aortic area PULMONARY: Diminished otherwise Chest is clear to auscultation, no wheezing or crackles. ABDOMEN: Soft, nontender, nondistended, normoactive bowel sounds. No palpable organomegaly. MUSCULOSKELETAL: Deferred to orthopedic surgery EXTREMITIES: No cyanosis, clubbing, or pedal edema. NEUROLOGICAL: Gross neurological examination did not reveal any focal deficits. Diffusely weak SKIN: No rashes. Assessment: -Lumbar laminectomy and decompression with fusion of L3-5 -Hypertension history -Restless leg syndrome -Hyperlipidemia -Gastroesophageal reflux disease -CVA/TIA in the past -GI prophylaxis -DVT prophylaxis: As per primary service -Full code Plan: Recommend to continue with current medications and management per orthopedic services with restrictions per Dr. Bobo Encouraged oral intake and increased activity, working with physical therapy bryant ly Incentive spirometer at bedside and encourage patient to continue using at least 10 times every hour while awake Recommend continuing with Percocets and Tylenol. Patient has not required IV Dilaudid in a few days Blood pressure better controlled on home dose of losartan Encouraged oral intake Case management is following and patient has been accepted at [facility] continuing to await insurance authorization Patient is medically stable for discharge to [facility] We will continue to follow with orthopedics during hospitalization. Thank you kindly for this consultation. The impression and plan of care has been dictated by Amanda Mata, Nurse Practitioner as directed. Dr. Jaun TATUM I have performed a history and examination and MDM of this patient, discussed the same with the dictator, and agree with the dictator's assessment and plan as written ,documented as a scribe. Based on total visit time, I have performed more than 50% of the visit. Objective - Vital Signs Vital signs: Vital Signs Temp 98.3 F 01/10/23 13:13 Pulse 83 01/10/23 13:13 Resp 17 01/10/23 13:13 BP 115/56 01/10/23 13:13 Pulse Ox 96 01/10/23 13:13 FiO2 Intake & Output 01/09/23 01/10/23 01/10/23 18:59 06:59 18:59 Other: Voiding Method Toilet Toilet # Voids 1 2 # Bowel Movements 0 - Labs CBC & Chem 7: 01/10/23 06:44 01/10/23 06:44 Labs: Abnormal Lab Results - Last 24 Hours (Table) 01/10/23 01/10/23 Range/Units 06:44 06:44 RBC 3.18 L (3.80-5.40) m/uL Hgb 9.2 L (11.4-16.0) gm/dL Hct 28.2 L (34.0-46.0) % Lymphocytes # 0.9 L (1.0-4.8) k/uL Potassium 3.3 L (3.5-5.1) mmol/L Calcium 7.9 L (8.4-10.2) mg/dL
[2023-01-11] MEDS: PANTOPRAZOLE 40 MG TABLET PO SCH (08:00)
[2023-01-11] MEDS: polyethylene glycoL 3350 17 GM POWD.PACK PO SCH (08:00)
[2023-01-11] MEDS: PARoxetine 20 MG TAB PO SCH (08:00)
[2023-01-11] MEDS: LOSARTAN 50 MG TAB PO SCH (08:00)
[2023-01-11] MEDS: rOPINIRole HCL 4 MG TABLET PO SCH (08:00)
[2023-01-11] MEDS: ATORVASTATIN 40 MG TAB PO SCH (08:00)
[2023-01-11] MEDS: SENNOSIDES-DOCUSATE SODIUM 1 EACH TAB PO SCH (08:00)
[2023-01-11] MEDS: ASPIRIN 81 MG PO SCH (08:00)
--- NOTE | 2023-01-11 08:25 | P.PN ---
Progress Note - Text Progress Note Date: 01/11/23 Orthopedic Spine History of present illness: Patient is a pleasant 82-year-old female who is seen and examined at the bedside following open L3-4 and L4-5 posterior lateral decompression and fusion performed 01/05/2023. Patient states they are doing well post operatively. Her pain has continued to improve. Her pain is being controlled with oral medications. She is working with physical therapy to increase her mobility and ambulation. She is looking forward to discharge to rehabilitation facility today if approved by insurance. Patient has been discussed in detail case management who is currently working on insurance authorization number. Patient is eating and voiding without difficulty. She has been able to ambulate to the restroom. She is ambulating with assistance of a walker. Currently does not complain of nausea, vomiting, fever, or chills. She continues to be seen and examined by medicine for her multiple other medical diagnoses. Surgical dressing has been discontinued. Her surgical incision site is clean, dry, intact with no active drainage or obvious signs of infection. Physical Exam on day of discharge: Status post surgical day number 6 Patient is awake, alert, and oriented 3 Vital signs stable Adequate chest excursion with deep inspiration and expiration Dorsiflexion, plantarflexion, and extensor hallucis longus positive sustained bilaterally No signs or symptoms of DVT; no calf pain; pneumatic cuffs intact bilateral lower extremities Surgical site dressing is clean, dry, and intact over the lumbar spine; no erythema, purulence, or signs of infection Dressing over the lumbar surgical site is removed No active drainage from the surgical site Mild bruising over the lumbar spine Neurovascularly intact bilaterally lower extremities Assessment: Status post open L3-4 and L4-5 posterior lateral decompression and fusion Low back pain L3-4 and L4-5 spondylolisthesis L3-4 and L4-5 severe spinal stenosis Lower extremity radiculopathy Lumbar facet arthrosis Hypertension Hyperlipidemia History CVA/TIA Restless leg syndrome Plan: 1. Ambulate as tolerated; work with Physical Therapy to increase mobilization; she can continue utilizing a walker to aid in ambulation as needed. 2. Continue pain control with oral medications; MAPS as previously reviewed on 01/07/2023 with an Overall Overdose Risk Score of 310. An "Opiod Start Talking" Form has been signed and placed in the patient's chart. A prescription has been written for Percocet 5 mg/325 mg, take 1 tab every 6 hours as needed for acute pain, dispensed #28. Patient is also given a prescription for baclofen 10 mg, take one tablet every 8 hours as needed for muscle spasm, dispensed #60. These medications are printed and placed in the patient's chart for discharge to a rehabilitation facility. Prescriptions also printed for gabapentin 600 mg, 1 tab nightly, dispense #7. This prescription is printed as required by the rehabilitation facility. 3. Dressing has been removed over the lumbar spine. Surgical incision site is clean, dry, and intact with no active drainage and no obvious sign of infection. Patient may shower without a dressing intact at this time. 4. Medical management can continue to manage patient for patient's other medical diagnoses including hypertension, hyperlipidemia, restless leg syndrome, and history of CVA/TIA. 5. We will continue to follow the patient closely; patient is currently clear for discharge from an orthopedic spine standpoint. We are waiting for insurance authorization for discharge to rehabilitation facility. This is being managed by case management. They're hoping the patient is able to be approved for discharge today. 6. Patient can follow-up with Cristiano Laura PA-C or Dr. John Bobo at [facility] in 2-3 weeks following discharge
--- NOTE | 2023-01-11 14:23 | P.PN ---
Subjective Progress Note Date: 01/11/23 - Reason for Consult Perioperative complication management - History of Present Illness 82-year-old female admitted for a severe spinal stenosis and laminectomy and decompression of L3-L5 postoperatively patient is clinically well doing well except for slight dry dizziness denied any pain at this time. Patient blood pressure is low normal expected postoperatively 01/06/2023 Patient is seen and evaluated in follow-up today currently sitting up in the chair lethargic although arousable. Patient has been receiving IV pain medications and given patient's age would recommend oral narcotics with Tylenol as needed. Blood pressure improving and will continue to monitor. Patient is afebrile and denies nausea or vomiting. Encouraged oral intake as patient is not eating much. Sluggish bowel sounds noted and would encourage increase activity as tolerated. Patient is afebrile with no reported chest pain or shortness of breath. Would recommend rehab although patient is not really agreeable to this at this point. 01/07/2023 Patient is seen and evaluated in follow-up this morning sleeping although easily arousable and alert and oriented. Per orthopedics working on weaning IV pain medications and recommend continuing with oral narcotic agents as patient is a lot more awake today. Patient reports is passing gas but no bowel movement as of yet. Patient working with physical therapy and initially refusing to go to rehab although is now agreeable with case management following working on ECF. Patient is afebrile with no reports of chest pain or shortness of breath noted. Patient reports to tolerating diet and no reported nausea or vomiting. Encourage the patient continue with restrictions per orthopedics and increased activity as tolerated 01/08/2023 Patient is evaluated today on the medical floor does report improved pain today. Has not had a bowel movement yet and passing some gas. No shortness of breath. Patient will be given miralax. Plan is for discharge to subacute rehab and this will not happen likely until tuesday as there is no case management or liason available on sundays for admission to rehab. 01/09/2023 Patient is evaluated today sitting up in the shower, was able to shower. Reports pain has improved. Patient was given miralax and suppository and did have bowel movement. Plan is for rehab tomorrow. 01/10/2023 Patient is seen and evaluated this morning currently awaiting insurance authorization with case management following along with orthopedics and plan is to go to [facility] once insurance authorization has been obtained. Patient is afebrile denies chest pain or shortness of breath and vital signs are stable. Appropriate home medications have been reviewed and resumed. Patient is maintained on Percocets for pain management and has not required IV Dilaudid in a few days. Patient was able to have a bowel movement and encouraged to increase activity as tolerated. Patient denies nausea or vomiting and is tolerating diet. 01/11/2023 Patient is seen and evaluated today and per nursing staff insurance authorization was denied to go to rehab and patient is being planned on going home with home care. Patient reports her pain is minimal in the back and has been improving and up and able to work with physical therapy. Patient reports she has not had a bowel movement although nursing staff reports she had a bowel movement one day prior after given a suppository. Encourage the patient increase fluids and continue stool softener twice daily. Encourage the patient to follow-up with primary care provider on discharge. Patient is medically stable for discharge today. Patient is afebrile with no reports of chest pain or shortness of breath. No reports of nausea vomiting and patient is tolerating diet. Review of systems: Constitutional: No reports of fatigue, fever, or chills Cardiovascular: No reports of chest pain or palpitations Respiratory: No reports of shortness of breath or cough GI: No reports of nausea, vomiting, or diarrhea : No reports of dysuria or retention Neurovascular: reports of generalized weakness with some lower back pain although is improving All medications have been reviewed PHYSICAL EXAMINATION: GENERAL: The patient is awake, alert and oriented x3,. Well developed, well nourished. HEENT: Pupils are round and equally reacting to light. EOMI. No scleral icterus. No conjunctival pallor. Normocephalic, atraumatic. No pharyngeal erythema. No thyromegaly. CARDIOVASCULAR: S1 and S2 muffled PULMONARY: Diminished otherwise Chest is clear to auscultation, no wheezing or crackles. ABDOMEN: Soft, nontender, nondistended, normoactive bowel sounds. No palpable organomegaly. MUSCULOSKELETAL: Deferred to orthopedic surgery EXTREMITIES: No cyanosis, clubbing, or pedal edema. NEUROLOGICAL: Gross neurological examination did not reveal any focal deficits. Diffusely weak SKIN: No rashes. Assessment: -Lumbar laminectomy and decompression with fusion of L3-5 -Hypertension history -Restless leg syndrome -Hyperlipidemia -Gastroesophageal reflux disease -CVA/TIA in the past -GI prophylaxis -DVT prophylaxis: As per primary service -Full code Plan: Recommend to continue with current medications and management per orthopedic services with restrictions per Dr. Bobo Encouraged oral intake and increased activity, working with physical therapy daily Incentive spirometer at bedside and encourage patient to continue using at least 10 times every hour while awake, encourage the patient to take home with her and continue using Recommend continuing with Percocets and Tylenol. Patient has not required IV Dilaudid in a few days Home medications reviewed and resumed and recommend outpatient follow-up with primary care provider Encouraged oral intake Case management is following and reports insurance has denied going to [facility] and plan is to go home with home care Patient is medically stable for discharge today. We will continue to follow with orthopedics during hospitalization. Thank you kindly for this consultation. The impression and plan of care has been dictated by Amanda Mata, Nurse Practitioner as directed. Dr. Jaun TATUM I have performed a history and examination and MDM of this patient, discussed the same with the dictator, and agree with the dictator's assessment and plan as written ,documented as a scribe. Based on total visit time, I have performed more than 50% of the visit. Objective - Vital Signs Vital signs: Vital Signs Temp 98.1 F 01/11/23 07:29 Pulse 77 01/11/23 07:29 Resp 17 01/11/23 07:29 BP 109/58 01/11/23 07:29 Pulse Ox 92 L 01/11/23 07:29 FiO2 Intake & Output 01/10/23 01/11/23 01/11/23 18:59 06:59 18:59 Other: Voiding Method Toilet Toilet Toilet # Voids 2 2 # Bowel Movements 0 - Labs CBC & Chem 7: 01/10/23 06:44 01/10/23 06:44
[2023-01-11 14:31] VITALS: BP 126/72; PULSE 84; RESP 16; TEMP 97.7
== END 2023-01-11 16:45 | disposition home health service (06) ==
LOC: OR 05:49 → 4SSUR 10:58 → OR 01-07 08:01
PROVIDERS: ADMIT Orthopaedic Surgery Orthopaedic Surgery of the Spine; ATTEND Orthopaedic Surgery Orthopaedic Surgery of the Spine
DX: M48.062 Spinal stenosis, lumbar region with neurogenic claudication (principal); M43.16 Spondylolisthesis, lumbar region; M47.26 Other spondylosis with radiculopathy, lumbar region; M51.16 Intervertebral disc disorders with radiculopathy, lumbar region; G25.81 Restless legs syndrome; I10 Essential (primary) hypertension; K21.9 Gastro-esophageal reflux disease without esophagitis; E78.5 Hyperlipidemia, unspecified; F41.9 Anxiety disorder, unspecified; K59.00 Constipation, unspecified; Z86.73 Personal history of transient ischemic attack (TIA), and cerebral infarction without residual deficits; Z87.891 Personal history of nicotine dependence; Z79.82 Long term (current) use of aspirin; Z79.899 Other long term (current) drug therapy
CPT/HCPCS: 97116; 97530 ×3; 97162; 97535 ×2; 97166; 86891; 86900; 86901; 80048 ×3; 83735; 85025 ×3; 85610; 85730; 86850; 81001; 87070; 72100; 93005; 22612; 22614; 20931; 20936; G0378 ×5; P9022; C1713; J2250; J1200; J0690 ×2; J2405 ×2; J1170 ×3

== ENCOUNTER 2023-05-23 14:52 | Day surgery (SDC) | payer MEDICARE ==
[2023-05-02 15:50] VITALS: BMI 24.0
[~2023-05-23 14:52] MED LIST changes: +LACTATED RINGERS 1,000 ML IV SCH; +LIDOCAINE 1% (10MG/ML) FOR IV START INTRADERMA PRN; -ceFAZolin 1,000 MG in SODIUM CHLORIDE 0.9% IRRIGATIO 1,000 ML IRRIGATION PRN
[2023-05-23 15:34] VITALS: TEMP 98.1
[2023-05-23] MEDS ORDERED: LIDOCAINE 1% INJ 10MG/ML (20 ML MDV) ONE (15:43)
[2023-05-23] MEDS ORDERED: PROPOFOL 10 MG/ML 20 ML VIAL IV ONE (15:43)
--- NOTE | 2023-05-23 16:05 | P.OP ---
Date of Procedure: 05/23/23 Preoperative Diagnosis: GERD Screening colonoscopy Postoperative Diagnosis: Antral gastritis Hiatal hernia Mild esophagitis Diverticulosis Procedure(s) Performed: EGD Colonoscopy Anesthesia: MAC Surgeon: Sung Kendrick Pathology: other (Antrum, esophagus) Condition: stable Disposition: PACU Description of Procedure: Patient's placed on the endoscopy table in the lateral position. She received IV sedation. The gastroscope placed oropharynx passed in the esophagus and stomach. Scope was then placed through the pylorus. First and second portion of duodenum appeared normal. Scope summer back the antrum this. Mildly inflamed. A biopsies performed. Scope was unretroflexed and remainder the stomach appeared normal. There was a sliding hiatal hernia seen. The GE junction was at 38 cm. The distal esophagus appeared mildly inflamed a biopsies performed. The proximal esophagus appeared normal. Scope withdrawn for patient. Next digital rectal exam was performed. This revealed no abnormalities. The flexible colonoscope was then placed patient anus and passed throughout the colon. The ileocecal valve could not be visualized secondary to significant tortuosity the valve. Scope withdrawn. The visualized right colon had a few scattered diverticula. The transverse colon had a few scattered diverticula. The descending colon had some diverticulosis. The sigmoid colon is extensive diverticular changes. Scope was brought back the rectum and this appeared normal. Scope withdrawn for patient. There is no evidence of any GI bleed.
[2023-05-23 16:40] VITALS: BP 144/79; PULSE 75; RESP 14
== END 2023-05-23 16:54 | disposition home or self-care (01) ==
LOC: ORWHC2ENDO 14:52
PROVIDERS: ATTEND Surgery
DX: Z12.11 Encounter for screening for malignant neoplasm of colon (principal); K29.50 Unspecified chronic gastritis without bleeding; K44.9 Diaphragmatic hernia without obstruction or gangrene; K21.00 Gastro-esophageal reflux disease with esophagitis, without bleeding; K57.92 Diverticulitis of intestine, part unspecified, without perforation or abscess without bleeding; I10 Essential (primary) hypertension; K21.9 Gastro-esophageal reflux disease without esophagitis; G25.81 Restless legs syndrome; E78.5 Hyperlipidemia, unspecified; Z79.83 Long term (current) use of bisphosphonates; Z79.899 Other long term (current) drug therapy
CPT/HCPCS: 88305; 45378; 43239; J2001; J2704; 88312

== ENCOUNTER → 2023-06-27 | Outpatient (CLI) | payer MEDICARE ==
[2023-06-27 16:29] LABS: Basophils # (A) 0.04 X 10*3/uL (0.00-0.10); Basophils % (A) 0.6 %; Eosinophils % (A) 1.6 %; HCT 38.1 % (37.2-46.3); HGB 11.8 g/dL (12.0-15.0); Lymphocytes # (A) 1.54 X 10*3/uL (0.90-5.00); Lymphocytes % (A) 24.6 %; MCH 26.9 pg (27.0-32.0); Mean Platelet Volume 10.7 FL (9.5-12.2); Monocytes # (A) 0.53 X 10*3/uL (0.20-1.00); Monocytes % (A) 8.5 %; NRBC Per 100 WBC 0 X 10*3/uL (0.00-0.01); Neutrophils # (A) 4.02 X 10*3/uL (1.80-7.70); Neutrophils % (A) 64.4 %; Platelet Count 251 X 10*3/uL (140-440); RBC 4.38 X 10*6/uL (4.10-5.20); RDW 14.7 % (11.5-14.5); WBC 6.25 X 10*3/uL (4.50-10.00)
== END | disposition home or self-care (01) ==
LOC: LABPAT 10:42
PROVIDERS: ATTEND Surgery
DX: Z01.818 Encounter for other preprocedural examination (principal); K21.00 Gastro-esophageal reflux disease with esophagitis, without bleeding; I49.8 Other specified cardiac arrhythmias; R94.31 Abnormal electrocardiogram [ECG] [EKG]
CPT/HCPCS: 36415; 85025; 93005

== ENCOUNTER 2023-07-01 07:10 | Inpatient (IN) | payer MEDICARE ==
[~2023-07-01 07:10] MED LIST changes: +ACETAMINOPHEN TAB 500 MG TAB PO PRN; +HEPARIN SODIUM,PORCINE/PF 5,000 UNIT/0.5 ML SYRINGE SQ PRN; -LACTATED RINGERS 1,000 ML IV SCH; -LIDOCAINE 1% (10MG/ML) FOR IV START INTRADERMA PRN
[2023-07-01] MEDS ORDERED: DEXAMETHASONE SOD PHOSPHATE 4 MG/ML 1 ML VIAL IV ONE (07:22)
[2023-07-01] MEDS ORDERED: LACTATED RINGERS 1,000 ML IV SCH (07:22)
[2023-07-01] MEDS ORDERED: MIDAZOLAM 2 MG/2 ML VIAL IV PRN (07:22)
[2023-07-01] MEDS ORDERED: ONDANSETRON 4 MG/2 ML VIAL IVP ONE (07:22)
[2023-07-01] MEDS ORDERED: HYDROmorphone (PF) 1 MG/ML ONE (08:45)
[2023-07-01] MEDS ORDERED: LIDOCAINE 1% INJ 10MG/ML (20 ML MDV) ONE (08:45)
[2023-07-01] MEDS ORDERED: KETAMINE HCL IN 0.9 % NACL 50 MG/5 ML SYRINGE ONE (08:45)
[2023-07-01] MEDS ORDERED: fentaNYL (PF) 50 MCG/ML 2 ML AMP ONE (08:45)
[2023-07-01] MEDS ORDERED: MIDAZOLAM 2 MG/2 ML VIAL ONE (08:45)
[2023-07-01] MEDS ORDERED: SUCCINYLCHOLINE CHLORIDE 200 MG/10 ML VIAL IV ONE (08:45)
[2023-07-01] MEDS ORDERED: ROCURONIUM 10 MG/ML (5 ML VIAL) IV ONE (08:45)
[2023-07-01] MEDS ORDERED: PROPOFOL 10 MG/ML 20 ML VIAL IV ONE (08:45)
[2023-07-01] MEDS ORDERED: ePHEDrine 50 MG/ML 1 ML VIAL ONE (08:45)
[2023-07-01] MEDS ORDERED: LIDOCAINE 1%-EPI 1:100,000 50 ML VIAL SQ ONE (09:09)
[2023-07-01] MEDS ORDERED: LACTATED RINGERS 1,000 ML IV ONE ×3 (09:30→11:20)
[2023-07-01] MEDS: HYDROmorphone 0.5 MG/0.5 ML SYRINGE IVP PRN ×5 (11:19→23:24)
[2023-07-01] MEDS ORDERED: NALOXONE 0.4 MG/ML 1 ML VIAL IV PRN (11:20)
[2023-07-01] MEDS ORDERED: droPERidol 5 MG/2 ML VIAL IVP ONE (11:24)
--- NOTE | 2023-07-01 11:34 | P.OP ---
Date of Procedure: 07/01/23 Preoperative Diagnosis: Recurrent paraesophageal hiatal hernia GERD Postoperative Diagnosis: Recurrent paraesophageal hiatal hernia Adhesions GERD Procedure(s) Performed: Laparoscopic repair of paraesophageal hiatal hernia with absorbable mesh, [place] bio a Lysis of adhesions Partial gastrectomy Anesthesia: ONEL Surgeon: Sung Kendrick Estimated Blood Loss (ml): 25 Pathology: other (Stomach) Condition: stable Disposition: PACU Description of Procedure: The patient's placed on the operative table in the supine position. She received general endotracheal anesthesia. She was then placed in dorsal lithotomy position. Her abdomen was prepped and draped in sterile fashion. Using a Veress needle in the left upper quadrant the peritoneal cavity was insufflated. After adequate insufflation a 5 mm optical trocar is placed in the left periumbilical area. The laparoscope was placed. Cavity. And then a 5 mm trochars placed in the right epigastric, right lateral, left epigastric, left lateral position. The original 5 mm trocar was exchanged for a 12 mm trocar. The left lateral lobe of liver was retracted. There were significant adhesions seen around the hiatus. The patient a previous hiatal hernia repair. Using the Harmonic scissors the hiatus was dissected. It appeared that a portion of the fundal plication wrap was within the hernia above the diaphragm. The hernia sac was dissected free and the stomach was reduced. During the dissection of the hernia sac the stomach had a small perforation seen. It was decided to use the laparoscopic EVERETT stapler to repair the stomach. The area with the stomach perforation was grasped with a pair of graspers and then the laparoscopic EVERETT stapler was fired across stomach. The specimen was retrieved. It was sent to pathology. The stomach was then insufflated with methylene blue normal saline. There is no evidence of leakage. The stomach was then aspirated. The crural repair was then performed using 2-0 Ethibond suture. Once the crura was repaired the repair was buttressed with [place] [employer] a absorbable mesh. This was secured with 2-0 Ethibond suture. At this point the stomach was reexamined. There was no leakage. The gastric staple line was then oversewn with 30 the lock suture. The stomach was insufflated again with methylene blue normal saline. There is no evidence of leakage. The abdomen was irrigated. No bleeding was seen. The trochars withdrawn. The skin was then closed with inte rrupted 3-0 Monocryl suture. Dermabond dressings was applied. Patient top she will she was sent to recovery room in stable condition.
[2023-07-01] MEDS ORDERED: SODIUM CHLORIDE 0.9% 1,000 ML IV ONE (14:45)
[2023-07-01] MEDS: PIPERACILLIN-TAZOBACTAM 3.375 GM in SODIUM CHLORIDE 0.9% 100 ML IVPB SCH ×2 (16:20→23:08)
[2023-07-01] MEDS: HYDROmorphone 1 MG/ML 1 ML SYRINGE IVP PRN (20:02)
[2023-07-01] MEDS ORDERED: GABAPENTIN 300 MG CAP PO PRN (21:37)
[2023-07-01] MEDS ORDERED: HYDROcodone/APAP 5-325MG 1 EACH TAB PO PRN (21:37)
[2023-07-01] MEDS ORDERED: PANTOPRAZOLE 40 MG TABLET PO PRN (21:37)
[2023-07-01] MEDS: rOPINIRole HCL 4 MG TABLET PO SCH (22:54)
[2023-07-02] MEDS: ONDANSETRON 4 MG/2 ML VIAL IVP PRN (00:37)
[2023-07-02] MEDS: HYDROmorphone 1 MG/ML 1 ML SYRINGE IVP PRN ×2 (02:51→06:40)
[2023-07-02] MEDS: METOCLOPRAMIDE 5 MG/ML 2 ML VIAL IVP PRN (06:39)
[2023-07-02] MEDS: PIPERACILLIN-TAZOBACTAM 3.375 GM in SODIUM CHLORIDE 0.9% 100 ML IVPB SCH ×3 (08:14→23:46)
[2023-07-02] MEDS: ENOXAPARIN 40 MG/0.4 ML SYRINGE SQ SCH (08:15)
[2023-07-02] MEDS: rOPINIRole HCL 4 MG TABLET PO SCH ×3 (08:15→20:36)
[2023-07-02] MEDS: LOSARTAN 50 MG TAB PO SCH (08:15)
[2023-07-02] MEDS: PARoxetine 20 MG TAB PO SCH (08:15)
[2023-07-02] MEDS: ALPRAZolam 0.25 MG TAB PO PRN ×2 (08:28→20:44)
[2023-07-02 09:11] LABS: ALT 48 U/L (8-44); AST 51 U/L (13-35); Albumin 3.4 g/dL (3.8-4.9); Albumin/Globulin Ratio 1.79 Ratio (1.60-3.17); Alkaline Phosphatase 95 U/L (41-126); BUN/Creat Ratio 19.86 Ratio (12.00-20.00); Blood Urea Nitrogen 13.9 mg/dL (9.0-27.0); Calcium 8.4 mg/dL (8.7-10.3); Carbon Dioxide 23.7 mmol/L (21.6-31.8); Chloride 109 mmol/L (96-109); Globulin 1.9 g/dL (1.6-3.3); Glucose 126 mg/dL (70-110); Potassium 3.9 mmol/L (3.5-5.5); Sodium 144 mmol/L (135-145); Total Bilirubin 0.7 mg/dL (0.3-1.2); Total Protein 5.3 g/dL (6.2-8.2)
[2023-07-02 10:17] LABS: HCT 36.8 % (37.2-46.3); HGB 10.9 g/dL (12.0-15.0); MCH 26.6 pg (27.0-32.0); MCHC 29.6 g/dL (32.0-37.0); MCV 89.8 FL (80.0-97.0); Mean Platelet Volume 10.7 FL (9.5-12.2); NRBC Per 100 WBC 0 X 10*3/uL (0.00-0.01); Platelet Count 220 X 10*3/uL (140-440); RDW 14.8 % (11.5-14.5); WBC 11.79 X 10*3/uL (4.50-10.00)
[2023-07-02] MEDS: HYDROmorphone 0.5 MG/0.5 ML SYRINGE IVP PRN ×3 (10:39→18:34)
[2023-07-02 11:01] LABS: Basophils # (A) 0.02 X 10*3/uL (0.00-0.10); Basophils % (A) 0.2 %; Eosinophils # (A) 0 X 10*3/uL (0.04-0.35); Eosinophils % (A) 0 %; Lymphocytes # (A) 0.53 X 10*3/uL (0.90-5.00); Lymphocytes % (A) 4.5 %; Monocytes # (A) 0.41 X 10*3/uL (0.20-1.00); Monocytes % (A) 3.5 %; Neutrophils # (A) 10.79 X 10*3/uL (1.80-7.70); Neutrophils % (A) 91.5 %; RBC Morphology Normal (Normal)
[2023-07-02] MEDS ORDERED: methocarbamoL 500 MG TAB PO PRN (11:03)
--- NOTE | 2023-07-02 11:06 | P.PN ---
Subjective Progress Note Date: 07/02/23 DEE. Patient complaints of incisional pain. No N/V. No F/C. NO SOB or CP. Out of bed to chair. Voiding. No flatus or BM.. Objective - Vital Signs Vital signs: Vital Signs Temp 97.3 F L 07/02/23 07:13 Pulse 96 07/02/23 07:13 Resp 20 07/02/23 07:13 BP 134/65 07/02/23 07:13 Pulse Ox 93 L 07/02/23 07:13 FiO2 Intake & Output 07/01/23 07/02/23 07/02/23 18:59 06:59 18:59 Intake Total 2650 Output Total 50 600 Balance 2600 -600 Weight 67.6 kg Intake: IV 2650 Output: Urine 600 Estimated Blood Loss 50 Other: # Voids 1 3 - Exam Gen: AxO, NAD Pulm: non-labored respirations Abd: soft, moderately-tender around incisions, moderately distended, no guarding/rebound/rigidity Incisions: C/D/I, no erythema or fluctuence appreciated Extrem: no edema seen - Labs CBC & Chem 7: 07/02/23 04:03 07/02/23 04:03 Labs: Abnormal Lab Results - Last 24 Hours (Table) 07/02/23 07/02/23 Range/Units 04:03 04:03 WBC 11.79 H (4.50-10.00) X 10*3/uL Hgb 10.9 L (12.0-15.0) g/dL Hct 36.8 L (37.2-46.3) % MCH 26.6 L (27.0-32.0) pg MCHC 29.6 L (32.0-37.0) g/dL RDW 14.8 H (11.5-14.5) % Neutrophils # 10.79 H (1.80-7.70) X 10*3/uL Lymphocytes # 0.53 L (0.90-5.00) X 10*3/uL Eosinophils # 0 L (0.04-0.35) X 10*3/uL Glucose 126 H (70-110) mg/dL Calcium 8.4 L (8.7-10.3) mg/dL AST 51 H (13-35) U/L ALT 48 H (8-44) U/L Total Protein 5.3 L (6.2-8.2) g/dL Albumin 3.4 L (3.8-4.9) g/dL Assessment and Plan Assessment: Patient is a 82 year old female who is S/P hiatal hernia repair. -Continue NPO -IVF hydration -PRN pain and nausea control -Lidoderm patch and robaxin added for pain control -DVT/GI PPx Abdirizak Brown MD General Surgery
[2023-07-02] MEDS: LIDOCAINE 4% PATCH TOPICAL SCH (13:11)
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
--- NOTE | 2023-07-02 19:42 | P.PN ---
Subjective Progress Note Date: 07/02/23 82-year-old female patient with history of hypertension, hyperlipidemia, CVA/TIA, restless leg syndrome, iron deficiency anemia, anxiety/depression, recurrent paraesophageal hiatal hernia, admitted to the hospital for elective laparoscopic repair of paraesophageal hernia with absorbable mesh -- Patient underwent procedure on 07/01/2023 with POD #0 - Internal medicine service is consulted for medical management - Patient is evaluated resting in bed; reports uncontrolled pain; requesting anti-anxiety medication which is usually requires/inpatient Objective - Vital Signs Vital signs: Vital Signs Temp 97.3 F L 07/02/23 07:13 Pulse 96 07/02/23 07:13 Resp 20 07/02/23 07:13 BP 134/65 07/02/23 07:13 Pulse Ox 93 L 07/02/23 07:13 FiO2 Intake & Output 07/01/23 07/02/23 07/02/23 18:59 06:59 18:59 Intake Total 2650 Output Total 50 600 Balance 2600 -600 Weight 67.6 kg Intake: IV 2650 Output: Urine 600 Estimated Blood Loss 50 Other: # Voids 1 3 - Exam - Constitutional General appearance: Present: average body habitus, cooperative, no acute distress - EENT Eyes: Present: anicteric sclerae, EOMI, PERRLA, normal appearance ENT: Present: hearing grossly normal, normal oropharynx Ears: bilateral: normal - Neck Neck: Present: normal ROM. Absent: lymphadenopathy, rigidity, thyromegaly Carotids: negative: bruit present Thyroid: bilateral: normal size, negative: enlarged, nodule - Respiratory Respiratory: bilateral: CTA, negative: rales, rhonchi, wheezing - Cardiovascular Rhythm: regular Heart sounds: normal: S1, S2 Abnormal Heart Sounds: Absent: systolic murmur, diastolic murmur - Gastrointestinal General gastrointestinal: Present: normal bowel sounds, soft. Absent: distended, organomegaly, tenderness - Genitourinary Genitourinary Comment(s): deferred - Integumentary Integumentary: Present: normal turgor. Absent: jaundiced, rash, ulcer - Neurologic Neurologic: Present: CNII-XII intact. Absent: focal deficits - Musculoskeletal Musculoskeletal: Present: gait normal, strength equal bilaterally - Psychiatric Psychiatric: Present: A&O x's 3, appropriate affect, intact judgment & insight - Labs CBC & Chem 7: 07/02/23 04:03 07/02/23 04:03 Labs: Abnormal Lab Results - Last 24 Hours (Table) 07/02/23 07/02/23 Range/Units 04:03 04:03 WBC 11.79 H (4.50-10.00) X 10*3/uL Hgb 10.9 L (12.0-15.0) g/dL Hct 36.8 L (37.2-46.3) % MCH 26.6 L (27.0-32.0) pg MCHC 29.6 L (32.0-37.0) g/dL RDW 14.8 H (11.5-14.5) % Glucose 126 H (70-110) mg/dL Calcium 8.4 L (8.7-10.3) mg/dL AST 51 H (13-35) U/L ALT 48 H (8-44) U/L Total Protein 5.3 L (6.2-8.2) g/dL Albumin 3.4 L (3.8-4.9) g/dL Assessment and Plan Assessment: 1. Recurrent paraesophageal hernia - Patient is status post laparoscopic repair of paraesophageal hiatal hernia with absorbable mesh; POD #0 - Currently on IV Dilaudid 0.5-1 mg every 4-6 hours when necessary for pain control - Zosyn 3.375 g IV every 8 hours - We will monitor CBC, CRP and pro-calcitonin 2. Hypertension; losartan 50 mg daily 3. Hyperlipidemia 4. Restless legs syndrome; Requip 4 mg by mouth 3 times a day 5. Anxiety/depression; Paxil 40 mg daily; we will add Xanax 0.5 mg twice a day when necessary DVT prophylaxis; SCDs/subcu Lovenox CODE STATUS; full code
[2023-07-03] MEDS: HYDROmorphone 0.5 MG/0.5 ML SYRINGE IVP PRN ×2 (06:04→09:20)
[2023-07-03] MEDS: PIPERACILLIN-TAZOBACTAM 3.375 GM in SODIUM CHLORIDE 0.9% 100 ML IVPB SCH ×2 (09:16→16:08)
[2023-07-03] MEDS: LIDOCAINE 4% PATCH TOPICAL SCH (09:17)
[2023-07-03] MEDS: ENOXAPARIN 40 MG/0.4 ML SYRINGE SQ SCH (09:17)
[2023-07-03] MEDS: LOSARTAN 50 MG TAB PO SCH (09:18)
[2023-07-03] MEDS: PARoxetine 20 MG TAB PO SCH (09:18)
[2023-07-03] MEDS: rOPINIRole HCL 4 MG TABLET PO SCH ×3 (09:28→20:54)
[2023-07-03 09:34] LABS: ALT 30 U/L (8-44); AST 25 U/L (13-35); Albumin/Globulin Ratio 1.58 Ratio (1.60-3.17); Alkaline Phosphatase 102 U/L (41-126); BUN/Creat Ratio 23.43 Ratio (12.00-20.00); Bilirubin, Conjugated 0.47 mg/dL (0.20-0.40); Bilirubin,Unconjugated 0.43 mg/dL (0.20-1.00); Blood Urea Nitrogen 16.4 mg/dL (9.0-27.0); Calcium 8.6 mg/dL (8.7-10.3); Carbon Dioxide 22.2 mmol/L (21.6-31.8); Chloride 113 mmol/L (96-109); Globulin 1.9 g/dL (1.6-3.3); Glucose 94 mg/dL (70-110); Potassium 3.7 mmol/L (3.5-5.5); Sodium 146 mmol/L (135-145); Total Bilirubin 0.9 mg/dL (0.3-1.2); Total Protein 4.9 g/dL (6.2-8.2)
[2023-07-03 09:38] LABS: Basophils # (A) 0.02 X 10*3/uL (0.00-0.10); Basophils % (A) 0.2 %; Eosinophils # (A) 0.02 X 10*3/uL (0.04-0.35); Eosinophils % (A) 0.2 %; HGB 10.6 g/dL (12.0-15.0); Lymphocytes # (A) 0.66 X 10*3/uL (0.90-5.00); Lymphocytes % (A) 6.6 %; MCH 26.8 pg (27.0-32.0); MCHC 30.3 g/dL (32.0-37.0); MCV 88.4 FL (80.0-97.0); Mean Platelet Volume 10.8 FL (9.5-12.2); Monocytes # (A) 0.43 X 10*3/uL (0.20-1.00); Monocytes % (A) 4.3 %; NRBC Per 100 WBC 0 X 10*3/uL (0.00-0.01); Neutrophils # (A) 8.88 X 10*3/uL (1.80-7.70); Neutrophils % (A) 88.1 %; Platelet Count 193 X 10*3/uL (140-440); RBC 3.96 X 10*6/uL (4.10-5.20); RDW 15.3 % (11.5-14.5); WBC 10.07 X 10*3/uL (4.50-10.00)
[2023-07-03] MEDS: DEXTROSE 5%-0.45% NACL 1,000 ML IV SCH (10:56)
--- NOTE | 2023-07-03 11:00 | XR ---
EXAMINATION TYPE: XR chest 1V DATE OF EXAM: 07/03/2023 COMPARISON: 01/10/2023 HISTORY: 82-year-old female shortness of breath TECHNIQUE: Single frontal view of the chest is obtained. FINDINGS: Low lung volumes and cardiovascular markings. Patchy bibasilar opacities. Trace left pleur al effusion. Dense retrocardiac opacification with air bronchogram. Air below the right hemidiaphragm . IMPRESSION: 1. Hypoventilatory changes with patchy bibasilar opacities, dense retrocardiac opacity, and trace lef t pleural effusion. Correlate for possible mild CHF versus underlying infiltrates, possibly with pneu monia in the left base. 2. Air below the right hemidiaphragm may represent colonic interposition but is a new finding from pr ior exam. Correlate for any signs or symptoms of an acute abdomen. If indicated, an abdominal series with the addition of a left decubitus view can be considered.
--- NOTE | 2023-07-03 12:11 | P.PN ---
Progress Note - Text Progress Note Date: 07/03/23 Patient's resting her bed. She has been a bleeding the hallway. She has been walking to the bathroom to urinate. She still has some incisional pain. She's had no significant flatus. On exam vital signs appear stable. Abdomen soft. Incision sites are clean dry tach. Status post repair of paraesophageal hiatal hernia. The patient had a gastric repair performed surgery. She'll remain nothing by mouth. He'll be closely observed. We will plan on starting clear liquids tomorrow.
[2023-07-03] MEDS: HYDROmorphone 1 MG/ML 1 ML SYRINGE IVP PRN ×2 (12:35→20:54)
[2023-07-04] MEDS: HYDROmorphone 0.5 MG/0.5 ML SYRINGE IVP PRN ×2 (00:25→20:19)
[2023-07-04] MEDS: PIPERACILLIN-TAZOBACTAM 3.375 GM in SODIUM CHLORIDE 0.9% 100 ML IVPB SCH ×3 (00:25→14:29)
[2023-07-04] MEDS: DEXTROSE 5%-0.45% NACL 1,000 ML IV SCH ×2 (00:58→14:24)
[2023-07-04] MEDS: HYDROmorphone 1 MG/ML 1 ML SYRINGE IVP PRN ×4 (04:29→14:29)
[2023-07-04] MEDS ORDERED: FUROSEMIDE 10 MG/ML 4 ML VIAL IV STA ×2 (06:09→21:39)
--- NOTE | 2023-07-04 06:09 | P.PN ---
Subjective Progress Note Date: 07/03/23 82-year-old female patient with history of hypertension, hyperlipidemia, CVA/TIA, restless leg syndrome, iron deficiency anemia, anxiety/depression, recurrent paraesophageal hiatal hernia, admitted to the hospital for elective laparoscopic repair of paraesophageal hernia with absorbable mesh -- Patient underwent procedure on 07/01/2023 with POD #0 - Internal medicine service is consulted for medical management - Patient is evaluated resting in bed; reports uncontrolled pain; requesting anti-anxiety medication which is usually requires/inpatient 07/03/2023 patient is seen and evaluated in room at bedside; reports some difficulty breathing VS are reviewed; O2 saturation at 93% with some basilar crackles -- we will order BNP and stat Cxray; patient remains on IV Zosyn -- Sodium is elevated at 146; patient is placed on slow IVF hydration Objective - Vital Signs Vital signs: Vital Signs Temp 98.4 F 07/03/23 07:06 Pulse 100 07/03/23 07:06 Resp 16 07/03/23 07:06 BP 159/74 07/03/23 07:06 Pulse Ox 93 L 07/03/23 07:06 FiO2 Intake & Output 07/02/23 07/03/23 07/03/23 18:59 06:59 18:59 Intake Total 1100 Balance 1100 Intake: Intake, IV Titration 1100 Amount Piperacillin-Tazobactam 3 100 .375 gm In Sodium Chloride 0.9% 100 ml @ 25 mls/hr IVPB Q8HR [facility] Rx# :[id number] Sodium Chloride 0.9% 1, 1000 000 ml @ 125 mls/hr IV . Q8H ONE Rx#:[id number] Other: # Voids 2 - Exam - Constitutional General appearance: Present: average body habitus, cooperative, no acute distress - EENT Eyes: Present: anicteric sclerae, EOMI, PERRLA, normal appearance ENT: Present: hearing grossly normal, normal oropharynx Ears: bilateral: normal - Neck Neck: Present: normal ROM. Absent: lymphadenopathy, rigidity, thyromegaly Carotids: negative: bruit present Thyroid: bilateral: normal size, negative: enlarged, nodule - Respiratory Respiratory: bilateral: CTA, negative: rales, rhonchi, wheezing - Cardiovascular Rhythm: regular Heart sounds: normal: S1, S2 Abnormal Heart Sounds: Absent: systolic murmur, diastolic murmur - Gastrointestinal General gastrointestinal: Present: normal bowel sounds, soft. Absent: distended, organomegaly, tenderness - Genitourinary Genitourinary Comment(s): deferred - Integumentary Integumentary: Present: normal turgor. Absent: jaundiced, rash, ulcer - Neurologic Neurologic: Present: CNII-XII intact. Absent: focal deficits - Musculoskeletal Musculoskeletal: Present: gait normal, strength equal bilaterally - Psychiatric Psychiatric: Present: A&O x's 3, appropriate affect, intact judgment & insight - Labs CBC & Chem 7: 07/03/23 05:49 07/03/23 05:49 Labs: Abnormal Lab Results - Last 24 Hours (Table) 07/02/23 07/03/23 07/03/23 Range/Units 04:03 05:49 05:49 WBC 10.07 H (4.50-10.00) X 10*3/uL RBC 3.96 L (4.10-5.20) X 10*6/uL Hgb 10.6 L (12.0-15.0) g/dL Hct 35.0 L (37.2-46.3) % MCH 26.8 L (27.0-32.0) pg MCHC 30.3 L (32.0-37.0) g/dL RDW 15.3 H (11.5-14.5) % Immature Gran # 0.06 H (0.00-0.04) X 10*3/uL Neutrophils # 10.79 H 8.88 H (1.80-7.70) X 10*3/uL Lymphocytes # 0.53 L 0.66 L (0.90-5.00) X 10*3/uL Eosinophils # 0 L 0.02 L (0.04-0.35) X 10*3/uL Sodium 146 H (135-145) mmol/L Chloride 113 H (96-109) mmol/L BUN/Creatinine Ratio 23.43 H (12.00-20.00) Ratio Calcium 8.6 L (8.7-10.3) mg/dL Conjugated Bilirubin 0.47 H (0.20-0.40) mg/dL Total Protein 4.9 L (6.2-8.2) g/dL Albumin 3.0 L (3.8-4.9) g/dL Albumin/Globulin Ratio 1.58 L (1.60-3.17) Ratio Assessment and Plan Assessment: 1. Recurrent paraesophageal hernia - Patient is status post laparoscopic repair of paraesophageal hiatal hernia with absorbable mesh; POD #0 - Currently on IV Dilaudid 0.5-1 mg every 4-6 hours when necessary for pain control - Zosyn 3.375 g IV every 8 hours - We will monitor CBC, CRP and pro-calcitonin 2. Hypertension; losartan 50 mg daily 3. Hyperlipidemia 4. Restless legs syndrome; Requip 4 mg by mouth 3 times a day 5. Anxiety/depression; Paxil 40 mg daily; we will add Xanax 0.5 mg twice a day when necessary DVT prophylaxis; SCDs/subcu Lovenox CODE STATUS; full code
[2023-07-04] MEDS: rOPINIRole HCL 4 MG TABLET PO SCH ×3 (08:05→20:19)
[2023-07-04] MEDS: PARoxetine 20 MG TAB PO SCH (08:05)
[2023-07-04] MEDS: ENOXAPARIN 40 MG/0.4 ML SYRINGE SQ SCH (08:05)
[2023-07-04] MEDS: LOSARTAN 50 MG TAB PO SCH (08:05)
[2023-07-04] MEDS: LIDOCAINE 4% PATCH TOPICAL SCH (08:06)
[2023-07-04 10:33] LABS: Basophils % (A) 0 %; Eosinophils % (A) 0 %; HCT 35.5 % (34.0-46.0); HGB 10.9 gm/dL (11.4-16.0); Hypochromasia Marked; Lymphocytes # (A) 0.5 k/uL (1.0-4.8); Lymphocytes % (A) 5 %; MCH 27.7 pg (25.0-35.0); MCHC 30.8 g/dL (31.0-37.0); Monocytes # (A) 0.3 k/uL (0-1.0); Monocytes % (A) 3 %; Neutrophils # (A) 8.6 k/uL (1.3-7.7); Neutrophils % (A) 91 %; Platelet Count 220 k/uL (150-450); RBC 3.94 m/uL (3.80-5.40); RDW 14.9 % (11.5-15.5); WBC 9.5 k/uL (3.8-10.6)
[2023-07-04] MEDS: ALPRAZolam 0.25 MG TAB PO PRN (11:01)
[2023-07-04 11:07] LABS: BUN/Creat Ratio 25.62 Ratio (12.00-20.00); Blood Urea Nitrogen 20.5 mg/dL (9.0-27.0); Carbon Dioxide 20.7 mmol/L (21.6-31.8); Chloride 113 mmol/L (96-109); Glucose 131 mg/dL (70-110); Potassium 3.7 mmol/L (3.5-5.5); Sodium 147 mmol/L (135-145)
[2023-07-04] MEDS: METOPROLOL TARTRATE 25 MG TAB PO SCH ×2 (12:43→20:19)
[2023-07-04] MEDS ORDERED: DILTIAZEM DRIP BOLUS FROM BAG 1 MG SOLN IV ONE (13:00)
[2023-07-04] MEDS ORDERED: METOPROLOL TARTRATE 25 MG TAB PO STA (13:04)
[2023-07-04] MEDS: DILTIAZEM 125 MG in SODIUM CHLORIDE 0.9% 100 ML IV SCH (13:10)
--- NOTE | 2023-07-04 13:21 | P.PN ---
Subjective Progress Note Date: 07/04/23 CHIEF COMPLAINT: Recurrent paraesophageal hiatal hernia HISTORY OF PRESENT ILLNESS: Patient is postop day #3 status post laparoscopic repair of paraesophageal hiatal hernia with mesh, lysis of adhesions and partial gastrectomy. Patient reports her pain is controlled. She does report nausea. Denies any flatus or bowel movement. She has been tachycardic with a heart rate of 154. EKG completed showing A. fib with RVR. Cardiology has been consulted. WBC has normalized at 9.5 Hgb stable at 10.9 platelets 09/20/2046 potassium is 3.7 creatinine 0.8 magnesium pending. Messenger service to give a dose of IV Lasix for fluid overload. PHYSICAL EXAM: VITAL SIGNS: Reviewed. GENERAL: Well-developed in no acute distress. ABDOMEN: Soft. Nondistended. Nontender. Incision sites clean dry and intact NEUROLOGIC: Alert and oriented. Cranial nerves II through XII grossly intact. ASSESSMENT: 1. Recurrent paraesophageal hiatal hernia, Adhesions, GERD 2. A. fib with RVR PLAN: -Consult cardiology for A. fib with RVR -Patient to be transferred to the cardiac floor -Keep patient NPO -Continue antibiotics -DVT prophylaxis Lovenox Physician Door Repairman note has been reviewed by physician. Signing provider agrees with the documented findings, assessment, and plan of care. Objective - Vital Signs Vital signs: Vital Signs Temp 97.4 F L 07/04/23 06:59 Pulse 87 07/04/23 10:52 Resp 20 07/04/23 06:59 BP 128/85 07/04/23 06:59 Pulse Ox 97 07/04/23 06:59 FiO2 Intake & Output 07/03/23 07/04/23 07/04/23 18:59 06:59 18:59 Intake Total 950 Balance 950 Intake: Intake, IV Titration 950 Amount Dextrose 5%-0.45% NaCl 1, 750 000 ml @ 75 mls/hr IV . [id number] Rx#:[id number] Piperacillin-Tazobactam 3 200 .375 gm In Sodium Chloride 0.9% 100 ml @ 25 mls/hr IVPB Q8HR [facility] Rx# :[id number] Other: Voiding Method Toilet Toilet Toilet # Voids 1 - Labs CBC & Chem 7: 07/04/23 05:31 07/04/23 05:31 Labs: Abnormal Lab Results - Last 24 Hours (Table) 07/04/23 07/04/23 Range/Units 05:31 05:31 Hgb 10.9 L (11.4-16.0) gm/dL MCHC 30.8 L (31.0-37.0) g/dL Neutrophils # 8.6 H (1.3-7.7) k/uL Lymphocytes # 0.5 L (1.0-4.8) k/uL Sodium 147 H (135-145) mmol/L Chloride 113 H (96-109) mmol/L Carbon Dioxide 20.7 L (21.6-31.8) mmol/L Anion Gap 13.30 H (4.00-12.00) mmol/L BUN/Creatinine Ratio 25.62 H (12.00-20.00) Ratio Glucose 131 H (70-110) mg/dL
--- NOTE | 2023-07-04 17:59 | XR ---
EXAMINATION TYPE: XR chest 1V portable DATE OF EXAM: 07/04/2023 HISTORY: Shortness of breath. COMPARISON: 07/03/2023 TECHNIQUE: Single view of the chest is submitted. FINDINGS: Demonstrated are scattered senescent parenchymal change. There is left basilar opacity which may reflect atelectasis and/or pneumonia. Small effusion not excl uded. Right basilar compressive atelectasis. The heart is stable. Hilar and mediastinal structures are within normal limits. Increasing air underneath the right hemidiaphragm could reflect colonic interposition. Pneumoperitone um not excluded. Correlate clinically. IMPRESSION: 1. Increasing air underneath the right hemidiaphragm could reflect colonic interposition. Pneumoperi toneum not excluded. Correlate clinically. 2. Left basilar opacity as discussed
--- NOTE | 2023-07-04 21:42 | P.PN ---
Subjective Progress Note Date: 07/04/23 Patient is evaluated today sitting up in the chair on medical floor. Heart rate is elevated this morning in the 150s irregular pending EKG and telemetry has also been ordered. Further recommendations pending the EKG. Patient denies any chest pain, no shortness of breath, states she feels anxious. Currently NPO. She is postoperative day #3 paraesophageal hernia repair. Has been receiving D5 1/2 NS at 75 mls/hr. Received a dose of IV lasix around 6am, BNP is elevated at 3460. Review of Systems Constitutional: Denied any fatigue denied any fever. Cardio vascular: denied any chest pain, palpitations Gastrointestinal: denied any nausea, vomiting, diarrhea Pulmonary: Denied any shortness of breath cough Neurologic denied any new focal deficits All inpatient medications were reviewed and appropriate changes in these medications as dictated in the interval history and assessment and plan. PHYSICAL EXAMINATION: GENERAL: The patient is alert and oriented x3, not in any acute distress. Well developed, well nourished. HEENT: Pupils are round and equally reacting to light. EOMI. No scleral icterus. No conjunctival pallor. Normocephalic, atraumatic. No pharyngeal erythema. No thyromegaly. CARDIOVASCULAR: S1 and S2 present. No murmurs, rubs, or gallops. Tachycardic irregular. PULMONARY: Chest is clear to auscultation, no wheezing or crackles. ABDOMEN: Soft, nontender, nondistended, normoactive bowel sounds. No palpable organomegaly. Post surgical. MUSCULOSKELETAL: No joint swelling or deformity. EXTREMITIES: No cyanosis, clubbing, or pedal edema. NEUROLOGICAL: Gross neurological examination did not reveal any focal deficits. SKIN: No rashes. Assessment -Recurrent paraesophageal hernia postoperative day #3 laproscopic surgical repair with mesh remains on IV zosyn postoperatively -Tachycardia EKG ordered rule out arrythmia/atrial fibrillation, cardiac telemetry has been ordered -Hypernatremia likely from decreased free water intake patient will be started on clear liquid diet today postoperatively -Hypertension -Hyperlipidemia -Restless leg syndrome -Gastroesophageal reflux disease -Anxiety/Depression continues on paxil daily and xanax has been added as needed -Chronic back pain with prior lumbar decompression and fusion -Former nicotine use -Hx of TIA GI prophylaxis DVT prophylaxis Full Code Plan Patient has been started on IV cardizem for the atrial fibrillation, will recommend to hold losartan at this time Echocardiogram ordered Cardiology consultation in place Patient will be moved to the cardiac floor on cardiac telemetry monitoring. Remains on IV zosyn post surgically Patient remains NPO per primary service Repeat chest xray ordered and follow up BNP Continue IV fluids for now. The impression and plan of care has been dictated by Teresita Jones, Nurse Practitioner as directed. Dr. Samra MD I have performed a history and physical examination and medical decision making of this patient, discussed the same with the dictator, and agree with the dictators assessment and plan as written, documented as a scribe. Based on total visit time, I have performed more than 50% of this visit. Objective - Vital Signs Vital signs: Vital Signs Temp 97.4 F L 07/04/23 06:59 Pulse 154 H 07/04/23 08:41 Resp 20 07/04/23 06:59 BP 128/85 07/04/23 06:59 Pulse Ox 97 07/04/23 06:59 FiO2 Intake & Output 07/03/23 07/04/23 07/04/23 18:59 06:59 18:59 Intake Total 950 Balance 950 Intake: Intake, IV Titration 950 Amount Dextrose 5%-0.45% NaCl 1, 750 000 ml @ 75 mls/hr IV . [id number] Rx#:[id number] Piperacillin-Tazobactam 3 200 .375 gm In Sodium Chloride 0.9% 100 ml @ 25 mls/hr IVPB Q8HR [facility] Rx# :[id number] Other: Voiding Method Toilet Toilet # Voids 1 - Labs CBC & Chem 7: 07/04/23 05:31 07/04/23 05:31 Assessment and Plan Time with Patient: Less than 30
[2023-07-05] MEDS: PIPERACILLIN-TAZOBACTAM 3.375 GM in SODIUM CHLORIDE 0.9% 100 ML IVPB SCH ×3 (00:02→15:53)
[2023-07-05] MEDS: HYDROmorphone 0.5 MG/0.5 ML SYRINGE IVP PRN ×4 (00:22→17:21)
[2023-07-05] MEDS: DILTIAZEM 125 MG in SODIUM CHLORIDE 0.9% 100 ML IV SCH (00:23)
[2023-07-05] MEDS: METOPROLOL TARTRATE 25 MG TAB PO SCH (07:00)
[2023-07-05] MEDS ORDERED: METOPROLOL TARTRATE 50 MG TAB PO STA (07:49)
[2023-07-05] MEDS: rOPINIRole HCL 4 MG TABLET PO SCH ×3 (09:08→21:44)
[2023-07-05] MEDS: ENOXAPARIN 40 MG/0.4 ML SYRINGE SQ SCH (09:08)
[2023-07-05] MEDS: PARoxetine 20 MG TAB PO SCH (09:08)
[2023-07-05] MEDS: LIDOCAINE 4% PATCH TOPICAL SCH (09:09)
[2023-07-05 10:06] LABS: African American GFR (CKD) 87 (>60 ml/min/1.73 sqM); Anion Gap 11 mmol/L; Blood Urea Nitrogen 28 mg/dL (7-17); Calcium 9.2 mg/dL (8.4-10.2); Carbon Dioxide 24 mmol/L (22-30); Chloride 112 mmol/L (98-107); Glucose 126 mg/dL (74-99); Non-African American GFR(CKD) 76 (>60 ml/min/1.73 sqM); Potassium 2.9 mmol/L (3.5-5.1); Sodium 147 mmol/L (137-145)
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
--- NOTE | 2023-07-05 11:01 | CT ---
EXAMINATION TYPE: CT brain wo con DATE OF EXAM: 07/05/2023 COMPARISON: 07/30/2022 HISTORY: Rule out CVA, LT side weakness CT DLP: 1138.4 mGycm Automated exposure control for dose reduction was used. FINDINGS: Mild to moderate generalized degenerative change. Hypoattenuation in the white matter is similar to t he prior exam and most typical of remote ischemia. Punctate area of low attenuation involving the bas al ganglia compatible with remote lacunar infarct. No midline shift or mass effect. No acute intracranial hemorrhage. Orbits are symmetric. Craniocervical junction maintained. Calvarium intact. No significant changes of sinusitis. There is fusiform prominence of the basilar artery noted on coronal image 36 suspicious f or a small aneurysm measuring up to 4 mm. Punctate low attenuation within the midbrain on the left to small to characterize but likely remote. IMPRESSION: DEGENERATIVE AND REMOTE ISCHEMIC CHANGE WITH NO EVIDENCE OF ACUTE HEMORRHAGE OR MASS EFFECT. 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
[2023-07-05] MEDS ORDERED: Potassium Replacement Protocol 1 EACH MISC MISCELLANE PRN (11:38)
[2023-07-05] MEDS: APIXABAN 5 MG TAB PO SCH ×2 (12:59→21:44)
[2023-07-05] MEDS: POTASSIUM CHLORIDE 10 MEQ in WATER FOR INJECTION 1 100ML.BAG IVPB SCH ×6 (13:00→21:45)
--- NOTE | 2023-07-05 14:59 | P.PN ---
Subjective Progress Note Date: 07/05/23 Patient is evaluated today sitting up in the chair on medical floor. Heart rate is elevated this morning in the 150s irregular pending EKG and telemetry has also been ordered. Further recommendations pending the EKG. Patient denies any chest pain, no shortness of breath, states she feels anxious. Currently NPO. She is postoperative day #3 paraesophageal hernia repair. Has been receiving D5 1/2 NS at 75 mls/hr. Received a dose of IV lasix around 6am, BNP is elevated at 3460. 07/05/2023 Patient evaluated on the stepdown unit today currently postoperative day #4 paraesophageal hernia repair. Having 10/10 abdominal discomfort per patient however passing gas and having increased bowel sounds. Receiving IV dilaudid for pain management. On IV cardizem at 5 will be transitioned to metoprolol and cleared for anticoagulation by surgery was started on eliquis. Patient had complaints of left sided weakness which strength appears equal on examination. Had brain CT showing degenerative and remote ischemic change with no evidence of acute hemorrhage or mass effect. 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 Neurology was consulted. Chest xray follow up yesterday reveals increasing air underneath the right hemidiaphragm could reflect colonic interposition. Pneumoperitoneum not excluded. Left basilar opacity may reflect atelectasis or pneumonia. Patient was receiving IV fluids which were stopped due to proBNP of over 7000. Received second dose of IV lasix. Labs today showing sodium 147, potassium 2.9. Review of Systems Constitutional: Denied any fatigue denied any fever. Cardio vascular: Denied any chest pain, palpitations Gastrointestinal: Denied any nausea, vomiting, diarrhea Pulmonary: Denied any shortness of breath cough Neurologic: Denied any new focal deficits, reports left sided weakness All inpatient medications were reviewed and appropriate changes in these medications as dictated in the interval history and assessment and plan. PHYSICAL EXAMINATION: GENERAL: The patient is alert and oriented x3, not in any acute distress. Well developed, well nourished. HEENT: Pupils are round and equally reacting to light. EOMI. No scleral icterus. No conjunctival pallor. Normocephalic, atraumatic. No pharyngeal erythema. No thyromegaly. CARDIOVASCULAR: S1 and S2 present. No murmurs, rubs, or gallops. Tachycardic irregular. PULMONARY: Chest is clear to auscultation, no wheezing or crackles. ABDOMEN: Soft, nontender, nondistended, normoactive bowel sounds. No palpable organomegaly. Post surgical. MUSCULOSKELETAL: No joint swelling or deformity. EXTREMITIES: No cyanosis, clubbing, or pedal edema. NEUROLOGICAL: Gross neurological examination did not reveal any focal deficits. SKIN: No rashes. Assessment -Recurrent paraesophageal hernia postoperative day #4 laproscopic surgical repair with mesh remains on IV zosyn postoperatively -New onset atrial fibrillation with RVR treated with IV cardizem, cardiology consultation has been started on eliquis cleared by general surgery -Hypokalemia due to diuresis and NPO diet -Hypernatremia likely from decreased free water intake -Hypertension -Hyperlipidemia -Restless leg syndrome -Gastroesophageal reflux disease -Anxiety/Depression continues on paxil daily and xanax has been added as needed -Chronic back pain with prior lumbar decompression and fusion -Former nicotine use -Hx of TIA GI prophylaxis DVT prophylaxis Full Code Plan Patient has been started on IV cardizem for the atrial fibrillation, will recommend to hold losartan at this time being transitioned to oral metoprolol Echocardiogram ordered and pending at this time Cardiology consultation in place Patient currently on cardiac floor on cardiac telemetry monitoring. Remains on IV zosyn post surgically Discussed diet with general surgery has been upgraded to full liquid diet and encouraged to increase oral water intake Neurology consultation IV fluids discontinued, status post IV lasix x2. Replace potassium Repeat labs in AM PT/OT consultation The impression and plan of care has been dictated by Teresita Jones, Nurse Practitioner as directed. Dr. Samra MD I have performed a history and physical examination and medical decision making of this patient, discussed the same with the dictator, and agree with the dictators assessment and plan as written, documented as a scribe. Based on total visit time, I have performed more than 50% of this visit. Objective - Vital Signs Vital signs: Vital Signs Temp 98.7 F 07/05/23 12:51 Pulse 67 07/05/23 12:51 Resp 16 07/05/23 12:51 BP 111/61 07/05/23 12:51 Pulse Ox 95 07/05/23 12:51 FiO2 Intake & Output 07/04/23 07/05/23 07/05/23 18:59 06:59 18:59 Intake Total 56.083 100 Output Total 200 Balance -143.917 100 Weight 67.6 kg Intake: Intake, IV Titration 56.083 Amount Diltiazem 125 mg In 56.083 Sodium Chloride 0.9% 100 ml @ 5 MG/HR 5 mls/hr IV .Q24H [facility] Rx#:[id number] Oral 100 Output: Urine 200 Other: Voiding Method Toilet Toilet Toilet Bedside Commode Bedside Commode # Voids 1 - Labs CBC & Chem 7: 07/04/23 05:31 07/05/23 09:17 Labs: Abnormal Lab Results - Last 24 Hours (Table) 07/05/23 Range/Units 09:17 Sodium 147 H (137-145) mmol/L Potassium 2.9 L (3.5-5.1) mmol/L Chloride 112 H (98-107) mmol/L BUN 28 H (7-17) mg/dL Glucose 126 H (74-99) mg/dL Assessment and Plan Time with Patient: Less than 30
--- NOTE | 2023-07-05 16:01 | P.PN ---
Subjective Progress Note Date: 07/05/23 CHIEF COMPLAINT: Recurrent paraesophageal hiatal hernia HISTORY OF PRESENT ILLNESS: Patient is postop day #4 status post laparoscopic repair of paraesophageal hiatal hernia with mesh, lysis of adhesions and partial gastrectomy. Patient's pain is controlled. She is having flatus. Denies any nausea or vomiting. Patient currently on the cardiac floor due to A. fib with RVR. She is converted to sinus rhythm. Heart rate in the 60s. Apparently she did have some new left-sided weakness and neurology is on consult. Afebrile. Potassium 2.9 sodium 147 creatinine 0.74. Patient has received IV Lasix for fluid overload. PHYSICAL EXAM: VITAL SIGNS: Reviewed. GENERAL: Well-developed in no acute distress. ABDOMEN: Soft. Nondistended. Nontender. Incision sites clean dry and intact NEUROLOGIC: Alert and oriented. Cranial nerves II through XII grossly intact. ASSESSMENT: 1. Recurrent paraesophageal hiatal hernia, Adhesions, GERD 2. A. fib with RVR 3. Hypokalemia being corrected PLAN: -Advance diet to full liquids -Okay to start anticoagulation surgical standpoint -Continue antibiotics -DVT prophylaxis Lovenox Physician Corncob Pipes Assembler note has been reviewed by physician. Signing provider agrees with the documented findings, assessment, and plan of care. Objective - Vital Signs Vital signs: Vital Signs Temp 97.9 F 07/04/23 20:00 Pulse 126 H 07/05/23 09:04 Resp 18 07/05/23 09:04 BP 128/67 07/05/23 09:04 Pulse Ox 94 L 07/05/23 09:04 FiO2 Intake & Output 07/04/23 07/05/23 07/05/23 18:59 06:59 18:59 Intake Total 56.083 Output Total 200 Balance -143.917 Intake: Intake, IV Titration 56.083 Amount Diltiazem 125 mg In 56.083 Sodium Chloride 0.9% 100 ml @ 5 MG/HR 5 mls/hr IV .Q24H [facility] Rx#:[id number] Output: Urine 200 Other: Voiding Method Toilet Toilet Toilet Bedside Commode Bedside Commode # Voids 1 - Labs CBC & Chem 7: 07/04/23 05:31 07/05/23 09:17 Labs: Abnormal Lab Results - Last 24 Hours (Table) 07/05/23 Range/Units 09:17 Sodium 147 H (137-145) mmol/L Potassium 2.9 L (3.5-5.1) mmol/L Chloride 112 H (98-107) mmol/L BUN 28 H (7-17) mg/dL Glucose 126 H (74-99) mg/dL
[2023-07-05] MEDS: ACETAMINOPHEN TAB 325 MG TAB PO PRN (16:13)
[2023-07-05] MEDS: ONDANSETRON 4 MG/2 ML VIAL IVP PRN (17:22)
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
[2023-07-05] MEDS: ALPRAZolam 0.25 MG TAB PO PRN (21:44)
[2023-07-05] MEDS: HYDROmorphone 1 MG/ML 1 ML SYRINGE IVP PRN (21:45)
[2023-07-05] MEDS: METOPROLOL TARTRATE 50 MG TAB PO SCH (21:45)
[2023-07-05] MEDS: ATORVASTATIN 20 MG TAB PO SCH (21:45)
[2023-07-06] MEDS: PIPERACILLIN-TAZOBACTAM 3.375 GM in SODIUM CHLORIDE 0.9% 100 ML IVPB SCH ×4 (00:28→23:56)
[2023-07-06] MEDS: HYDROmorphone 1 MG/ML 1 ML SYRINGE IVP PRN (01:01)
[2023-07-06 09:19] LABS: African American GFR (CKD) 44 (>60 ml/min/1.73 sqM); Anion Gap 10 mmol/L; Blood Urea Nitrogen 41 mg/dL (7-17); Carbon Dioxide 23 mmol/L (22-30); Chloride 115 mmol/L (98-107); Glucose 115 mg/dL (74-99); Magnesium 2.2 mg/dL (1.6-2.3); Non-African American GFR(CKD) 38 (>60 ml/min/1.73 sqM); Potassium 3.6 mmol/L (3.5-5.1); Sodium 148 mmol/L (137-145)
[2023-07-06] MEDS: APIXABAN 5 MG TAB PO SCH (09:44)
[2023-07-06] MEDS: LIDOCAINE 4% PATCH TOPICAL SCH (09:44)
[2023-07-06] MEDS: rOPINIRole HCL 4 MG TABLET PO SCH ×3 (09:44→21:01)
[2023-07-06] MEDS: PARoxetine 20 MG TAB PO SCH (09:44)
[2023-07-06] MEDS: METOPROLOL TARTRATE 50 MG TAB PO SCH ×2 (09:44→21:01)
[2023-07-06] MEDS ORDERED: QUEtiapine 25 MG TAB PO STA (10:39)
[2023-07-06] MEDS ORDERED: HYDROcodone/APAP 5-325MG 1 EACH TAB PO PRN (10:58)
[2023-07-06 11:01] LABS: Basophils % (A) 0 %; Eosinophils % (A) 0 %; HGB 9.7 gm/dL (11.4-16.0); Hypochromasia Marked; Lymphocytes # (A) 0.5 k/uL (1.0-4.8); Lymphocytes % (A) 6 %; MCH 27.6 pg (25.0-35.0); MCHC 30.4 g/dL (31.0-37.0); MCV 90.6 fL (80.0-100.0); Mean Platelet Volume 8.5; Monocytes # (A) 0.3 k/uL (0-1.0); Monocytes % (A) 3 %; Neutrophils # (A) 8.2 k/uL (1.3-7.7); Neutrophils % (A) 90 %; Platelet Count 242 k/uL (150-450); RBC 3.54 m/uL (3.80-5.40); RDW 15.1 % (11.5-15.5); WBC 9.2 k/uL (3.8-10.6)
[2023-07-06] MEDS: ACETAMINOPHEN TAB 325 MG TAB PO PRN (11:08)
--- NOTE | 2023-07-06 12:21 | CA ---
Transthoracic Echo Report Name: Jannet Robert Age: 82 Gender: F : 1940 Exam Date: 07/05/2023 10:37 Exam Location: [place] [facility] Ht (in): 66 Wt (lb): 149 Ordering Physician: Teresita Jones Attending/Referring Phys: Robert RILEY Research Librarian Evans Garcia Procedure CPT: Indications: afib/CHF Cardiac Hx: Technical Quality: Technically difficult study Contrast 1: Total Dose (mL): Contrast 2: Total Dose (mL): MEASUREMENTS (Male / Female) Normal Values 2D ECHO LV Diastolic Diameter PLAX 5.0 cm 4.2 - 5.9 / 3.9 - 5.3 cm LV Systolic Diameter PLAX 2.9 cm IVS Diastolic Thickness 1.2 cm 0.6 - 1.0 / 0.6 - 0.9 cm LVPW Diastolic Thickness 1.0 cm 0.6 - 1.0 / 0.6 - 0.9 cm LV Relative Wall Thickness 0.4 RV Internal Dim ED PLAX 2.9 cm LVOT Diameter 2.0 cm Aortic Root Diameter 2.7 cm LA Systolic Diameter LX 3.0 cm 3.0 - 4.0 / 2.7 - 3.8 cm DOPPLER AV Peak Velocity 155.6 cm/s AV Peak Gradient 9.7 mmHg MV Peak Velocity 87.5 cm/s MV Peak Gradient 3.1 mmHg MV Mean Velocity 50.3 cm/s MV Mean Gradient 1.2 mmHg MV Velocity Time Integral 14.5 cm MR Peak Velocity 241.8 cm/s MR Peak Gradient 23.4 mmHg Mitral E Point Velocity 81.0 cm/s Mitral A Point Velocity 38.9 cm/s Mitral E to A Ratio 2.1 MV Deceleration Time 173.2 ms TR Peak Velocity 250.8 cm/s TR Peak Gradient 25.2 mmHg Right Ventricular Systolic Press 30.2 mmHg PV Peak Velocity 96.5 cm/s PV Peak Gradient 3.7 mmHg FINDINGS Left Ventricle Normal LV size and wall thickness. Right Ventricle Mild right ventricular dilatation. RVSP= 30mmHg. Right Atrium Mild right atrial dilatation. Left Atrium Mild left atrial dilatation. Mitral Valve Structurally normal mitral valve. Mild MR. Aortic Valve Trileaflet aortic valve. Mild AV sclerosis/calcification. No aortic stenosis. No aortic regurgitation. Tricuspid Valve Structurally normal tricuspid valve. Moderate TR. Pulmonic Valve Pulmonic valve not well visualized. No pulmonic regurgitation. Pericardium Grossly normal. Aorta Normal size aortic root. CONCLUSIONS This study was ended prior to finishing secondary to patient request. Technically difficult study. Grossly normal LV systolic function with EF estimated at 55% Mild RV dilatation with RVSP estimated at 30 mmHg Mild mitral regurgitation Mild biatrial dilatation Sclerotic aortic valve with no stenosis Previewed by: Dr Chris Multani (Electronically Signed) Final Date: 06 July 2023 12:20
[2023-07-06] MEDS: DEXTROSE 5% IN WATER 1,000 ML IV SCH (13:09)
--- NOTE | 2023-07-06 13:37 | P.PN ---
Subjective HISTORY OF PRESENT ILLNESS: This is a 82-year-old female with a past medical history significant for anxiety, former nicotine dependence, hypertension, hyperlipidemia, and TIA. 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 We have been asked to see the patient in consultation for new onset A. fib with RVR. Patient examined at the bedside. Patient is status post laparoscopic repair of paraesophageal hiatal hernia with mesh, lysis of adhesions, and partial gastrectomy. Postop day #4. Yesterday patient developed atrial fibrillation with RVR and was transferred to the cardiac stepdown for closer monitoring. She was started on IV Cardizem. She is still in atrial fibrillation with heart rates between [id number]. The pa tient is pressure to this morning as she states her pain is not well controlled. She also reports feeling like there is a cup still in her left hand although she is not holding anything. Neuro exam was within normal limits otherwise. * EKG reveals A. fib with RVR * Chest xray increasing air underneath the right hemidiaphragm could reflect colonic interposition. Pneumoperitoneum excluded. Left basilar opacity. * Laboratory data: ProBNP 7370. * Current home cardiac medications include losartan 50 mg in the morning and aspirin 81 mg a day 07/06/2023 Patient examined this morning at the bedside. Patient is confused and thrashing around in the bed at the time of examination. Patient denies chest pain or pressure. She denies shortness of breath. Patient has converted and is maintaining sinus mechanism this morning. She is anticoagulated with Eliquis. CT of the brain completed with no evidence of acute hemorrhage or mass effect. 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 PHYSICAL EXAM: VITAL SIGNS: Reviewed. GENERAL: Well-developed in no acute distress. HEENT: Head is normocephalic. Pupils are equal, round. Sclerae anicteric. Mucous membranes of the mouth are moist. Neck supple. No JVD or thyromegaly LUNGS: Respirations even and unlabored. Lungs essentially clear to auscultation bilaterally. HEART: Regular rate and rhythm. S1 and S2 heard. ABDOMEN: Soft. Nondistended. Nontender. EXTREMITIES: Normal range of motion. No clubbing or cyanosis. Peripheral pulses intact. No lower extremity edema NEUROLOGIC: Awake and alert. Oriented x 3. ASSESSMENT: Status post laparoscopic repair of paraesophageal hiatal hernia with mesh, lysis of adhesions, and partial gastrectomy New onset paroxysmal atrial fibrillation with RVR, currently maintaining sinus mechanism Sensation of holding a cup in left hand, r/o neuro etiology with hx of TIA, status post CT of the brain which was negative for acute process Hypertension Hyperlipidemia History of TIA Former nicotine dependence Anxiety Acute kidney injury Hypokalemia Hypernatremia Anabolic encephalopathy PLAN: Discontinue IV Cardizem Continue current dose of metoprolol Continue anticoagulation with Eliquis Continue telemetry monitoring No further inpatient recommendations from a cardiology standpoint We will sign off. Please reconsult if needed. Further recommendations pending patient's course Nurse practitioner note has been reviewed by physician. Signing provider agrees with the documented findings, assessment, and plan of care. Objective - Vital Signs Vital signs: Vital Signs Temp 98.4 F 07/05/23 20:00 Pulse 58 L 07/06/23 04:00 Resp 20 07/06/23 04:00 BP 118/71 07/06/23 04:00 Pulse Ox 94 L 07/06/23 04:00 FiO2 Intake & Output 07/05/23 07/06/23 07/06/23 18:59 06:59 18:59 Intake Total 178.917 Balance 178.917 Weight 67.6 kg Intake: Intake, IV Titration 78.917 Amount Diltiazem 125 mg In 78.917 Sodium Chloride 0.9% 100 ml @ 5 MG/HR 5 mls/hr IV .Q24H [facility] Rx#:[id number] Oral 100 Other: Voiding Method Toilet Bedside Commode Bedside Commode External Catheter # Voids 0 0 1 # Bowel Movements 1 1 - Labs CBC & Chem 7: 07/06/23 08:37 07/06/23 08:37 Labs: Abnormal Lab Results - Last 24 Hours (Table) 07/05/23 Range/Units 09:17 Sodium 147 H (137-145) mmol/L Potassium 2.9 L (3.5-5.1) mmol/L Chloride 112 H (98-107) mmol/L BUN 28 H (7-17) mg/dL Glucose 126 H (74-99) mg/dL
--- NOTE | 2023-07-06 14:12 | P.PN ---
Subjective Progress Note Date: 07/06/23 CHIEF COMPLAINT: Recurrent paraesophageal hiatal hernia HISTORY OF PRESENT ILLNESS: Patient is postop day #5 status post laparoscopic repair of paraesophageal hiatal hernia with mesh, lysis of adhesions and partial gastrectomy. Patient is more confused today and rolling around in her bed. Medicine service has ordered Seroquel. And adjusted IV fluids for elevated sodium and creatinine up to 1.33. Patient also followed by neurology service. Patient denies abdominal pain. Denies any nausea or vomiting. She did have a large bowel movement. She did tolerate the full liquids yesterday. She denies any breakfast this morning. Afebrile. Currently in sinus rhythm. WBC is 9.2 hgb 9.7 plt 242 sodium 140 potassium 3.6 creatinine 1.33 PHYSICAL EXAM: VITAL SIGNS: Reviewed. GENERAL: Well-developed in no acute distress. ABDOMEN: Soft. Nondistended. Nontender. Incision sites clean dry and intact NEUROLOGIC: Alert and oriented. Cranial nerves II through XII grossly intact. ASSESSMENT: 1. Recurrent paraesophageal hiatal hernia, Adhesions, GERD 2. A. fib with RVR 3. Altered mental status PLAN: -Continue full liquids -Continue to correct sodium and acute kidney injury. Discussed case with medical service. -Discontinued the IV Dilaudid and Robaxin because of confusion -Continue Tylenol as needed for pain. If patient still having pain then use the Romeo. -DVT prophylaxis [employer]io Physician Seo Analyst note has been reviewed by physician. Signing provider agrees with the documented findings, assessment, and plan of care. Objective - Vital Signs Vital signs: Vital Signs Temp 98.4 F 07/05/23 20:00 Pulse 58 L 07/06/23 04:00 Resp 20 07/06/23 04:00 BP 118/71 07/06/23 04:00 Pulse Ox 94 L 07/06/23 04:00 FiO2 Intake & Output 07/05/23 07/06/23 07/06/23 18:59 06:59 18:59 Intake Total 178.917 Balance 178.917 Weight 67.6 kg Intake: Intake, IV Titration 78.917 Amount Diltiazem 125 mg In 78.917 Sodium Chloride 0.9% 100 ml @ 5 MG/HR 5 mls/hr IV .Q24H [facility] Rx#:[id number] Oral 100 Other: Voiding Method Toilet Bedside Commode Bedside Commode External Catheter # Voids 0 0 1 # Bowel Movements 1 1 - Labs CBC & Chem 7: 07/06/23 08:37 07/06/23 08:37 Labs: Abnormal Lab Results - Last 24 Hours (Table) 07/05/23 07/06/23 Range/Units 09:17 08:37 Sodium 147 H 148 H (137-145) mmol/L Potassium 2.9 L (3.5-5.1) mmol/L Chloride 112 H 115 H (98-107) mmol/L BUN 28 H 41 H (7-17) mg/dL Creatinine 1.33 H (0.52-1.04) mg/dL Glucose 126 H 115 H (74-99) mg/dL
--- NOTE | 2023-07-06 15:22 | P.PN ---
Subjective Progress Note Date: 07/06/23 Patient is evaluated today sitting up in the chair on medical floor. Heart rate is elevated this morning in the 150s irregular pending EKG and telemetry has also been ordered. Further recommendations pending the EKG. Patient denies any chest pain, no shortness of breath, states she feels anxious. Currently NPO. She is postoperative day #3 paraesophageal hernia repair. Has been receiving D5 1/2 NS at 75 mls/hr. Received a dose of IV lasix around 6am, BNP is elevated at 3460. 07/05/2023 Patient evaluated on the stepdown unit today currently postoperative day #4 paraesophageal hernia repair. Having 10/10 abdominal discomfort per patient however passing gas and having increased bowel sounds. Receiving IV dilaudid for pain management. On IV cardizem at 5 will be transitioned to metoprolol and cleared for anticoagulation by surgery was started on eliquis. Patient had complaints of left sided weakness which strength appears equal on examination. Had brain CT showing degenerative and remote ischemic change with no evidence of acute hemorrhage or mass effect. 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 Neurology was consulted. Chest xray follow up yesterday reveals increasing air underneath the right hemidiaphragm could reflect colonic interposition. Pneumoperitoneum not excluded. Left basilar opacity may reflect atelectasis or pneumonia. Patient was receiving IV fluids which were stopped due to proBNP of over 7000. Received second dose of IV lasix. Labs today showing sodium 147, potassium 2.9. 07/06/2023 Patient is evaluated today on the stepdown unit currently postoperative day #5 paraesophageal hernia repair. Patient today is alert x 3 however confused thrashing around. Not complaining of pain. Has been started on full liquid diet and tolerating did have a large bowel movement. Abdomen soft. Remains on IV zosyn. 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 [place] patient had a TIA. No left sided weakness noted today. Possible left facial droop however difficult to assess due to patient not being able to sit still. Labs today reveal sodium 148, potassium 3.6, BUN 41, creatinine 1.33. TSH normal 0.701. Patient is urinating had a bladder scan today no retention noted. Echocardiogram was a technically difficult study however LV function appears grossly normal at 55%, mild MR and mild biatrial dilation. Review of Systems Constitutional: Denied any fatigue denied any fever. Cardio vascular: Denied any chest pain, palpitations Gastrointestinal: Denied any nausea, vomiting, diarrhea Pulmonary: Denied any shortness of breath cough Neurologic: Denied any new focal deficits All inpatient medications were reviewed and appropriate changes in these medications as dictated in the interval history and assessment and plan. PHYSICAL EXAMINATION: GENERAL: The patient is alert and oriented x3, confused, thrashing, not in any acute distress. Well developed, well nourished. HEENT: Pupils are round and equally reacting to light. EOMI. No scleral icterus. No conjunctival pallor. Normocephalic, atraumatic. No pharyngeal erythema. No thyromegaly. CARDIOVASCULAR: S1 and S2 present. No murmurs, rubs, or gallops. Tachycardic irregular. PULMONARY: Chest is clear to auscultation, no wheezing or crackles. ABDOMEN: Soft, nontender, nondistended, normoactive bowel sounds. No palpable organomegaly. Post surgical. MUSCULOSKELETAL: No joint swelling or deformity. EXTREMITIES: No cyanosis, clubbing, or pedal edema. NEUROLOGICAL: Gross neurological examination did not reveal any focal deficits however patient is confused. Has some slurred speech. SKIN: No rashes. Assessment -Recurrent paraesophageal hernia postoperative day #5 laproscopic surgical repair with mesh remains on IV zosyn postoperatively -New onset atrial fibrillation with RVR treated with IV cardizem, cardiology consultation has been started on eliquis cleared by general surgery -Hypokalemia due to diuresis and NPO diet improved with supplementation -Hypernatremia likely from decreased free water intake, hypovolemic started on Dextrose 5% at 75 mls/hr and recommend to repeat labs in AM -Altered mental status likely acute metabolic encephalopathy from [facility]ANI[place] and hypernatremia expected to improve with IV hydration -Pt reports left sided weakness neurology consultation patient had brain CT likely due to TIA and symptoms have resolved. Patient is now anticoagulated with eliquis 2.5 mg BID and continues on statin therapy. Per neurology no need for MRI. -Acute kidney injury prerenal due to dehydration will add D5 at 75 mls/hr and repeat labs in AM, No urinary retention noted. -Hypertension -Hyperlipidemia -Restless leg syndrome resumed on gabapentin HS PRN and requip and will be continued -Gastroesophageal reflux disease -Anxiety/Depression continues on paxil daily and xanax has been added as needed -Chronic back pain with prior lumbar decompression and fusion -Former nicotine use -Hx of TIA GI prophylaxis DVT prophylaxis Full Code Plan Patient transitioned to oral metoprolol heart rate now controlled recommending to continue holding losartan at this time. Cardiology consultation in place Patient currently on cardiac floor on cardiac telemetry monitoring. Remains on IV zosyn post surgically Discussed diet with general surgery has been upgraded to full liquid diet and encouraged to increase oral water intake Neurology consultation Patient has been started on D5 water at 75 mls/hr. Replace potassium Repeat labs in AM PT/OT consultation The impression and plan of care has been dictated by Teresita Jones, Nurse Practitioner as directed. Dr. Samra MD I have performed a history and physical examination and medical decision making of this patient, discussed the same with the dictator, and agree with the dictators assessment and plan as written, documented as a scribe. Based on total visit time, I have performed more than 50% of this visit. Objective - Vital Signs Vital signs: Vital Signs Temp 98.0 F 07/06/23 08:20 Pulse 58 L 07/06/23 14:00 Resp 20 07/06/23 14:00 BP 97/52 07/06/23 12:00 Pulse Ox 91 L 07/06/23 12:00 FiO2 Intake & Output 07/05/23 07/06/23 07/06/23 18:59 06:59 18:59 Intake Total 178.917 Balance 178.917 Weight 67.6 kg Intake: Intake, IV Titration 78.917 Amount Diltiazem 125 mg In 78.917 Sodium Chloride 0.9% 100 ml @ 5 MG/HR 5 mls/hr IV .Q24H [facility] Rx#:[id number] Oral 100 Other: Voiding Method Toilet Bedside Commode Bedside Commode Bedside Commode External Catheter # Voids 0 0 1 # Bowel Movements 1 1 - Labs CBC & Chem 7: 07/06/23 08:37 07/06/23 08:37 Labs: Abnormal Lab Results - Last 24 Hours (Table) 07/06/23 07/06/23 Range/Units 08:37 08:37 RBC 3.54 L (3.80-5.40) m/uL Hgb 9.7 L (11.4-16.0) gm/dL Hct 32.0 L (34.0-46.0) % MCHC 30.4 L (31.0-37.0) g/dL Neutrophils # 8.2 H (1.3-7.7) k/uL Lymphocytes # 0.5 L (1.0-4.8) k/uL Sodium 148 H (137-145) mmol/L Chloride 115 H (98-107) mmol/L BUN 41 H (7-17) mg/dL Creatinine 1.33 H (0.52-1.04) mg/dL Glucose 115 H (74-99) mg/dL Assessment and Plan Time with Patient: Less than 30
[2023-07-06] MEDS ORDERED: LORazepam 2 MG/ML INJ IV STA (16:05)
--- NOTE | 2023-07-06 17:57 | CT ---
EXAMINATION TYPE: CT brain wo con DATE OF EXAM: 07/06/2023 COMPARISON: 07/05/2023 INDICATION: AMS DLP: 1140.4 mGycm, Automated exposure control for dose reduction was used. CONTRAST: None CT of the brain is performed utilizing 3 mm thick sections through the posterior fossa and 3 mm thick sections through the remaining calvarium. Study is performed within 24 hours of arrival to the hosp [facility]. No abnormal hyperdensity is present to suggest an acute intracranial hemorrhage. No mass lesion is evident. No acute infarcts are evident. Small lacunar infarct may be within the left basal ganglion. Periventr icular white matter hypodensity is present, likely on the basis of chronic white matter ischemic aguirre ges. Ventricles and sulci are appropriate for the patient age. 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 Paranasal sinuses and mastoid air cells within the [id number] are clear. IMPRESSION: 1. Chronic appearing periventricular white matter ischemic changes. 2. 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
[2023-07-06] MEDS: ATORVASTATIN 20 MG TAB PO SCH (21:01)
[2023-07-07] MEDS: ALPRAZolam 0.25 MG TAB PO PRN (00:11)
[2023-07-07] MEDS: DEXTROSE 5% IN WATER 1,000 ML IV SCH ×3 (04:20→23:03)
[2023-07-07 08:44] LABS: HCT 32.8 % (34.0-46.0); HGB 10.3 gm/dL (11.4-16.0); Hypochromasia Marked; MCH 27.8 pg (25.0-35.0); MCHC 31.4 g/dL (31.0-37.0); MCV 88.4 fL (80.0-100.0); Mean Platelet Volume 8.3; Platelet Count 270 k/uL (150-450); RBC 3.71 m/uL (3.80-5.40); RDW 14.8 % (11.5-15.5); WBC 9.2 k/uL (3.8-10.6)
[2023-07-07 08:59] LABS: African American GFR (CKD) 53 (>60 ml/min/1.73 sqM); Anion Gap 11 mmol/L; Blood Urea Nitrogen 46 mg/dL (7-17); Calcium 8.9 mg/dL (8.4-10.2); Carbon Dioxide 22 mmol/L (22-30); Chloride 112 mmol/L (98-107); Glucose 129 mg/dL (74-99); Non-African American GFR(CKD) 46 (>60 ml/min/1.73 sqM); Potassium 3.3 mmol/L (3.5-5.1); Sodium 145 mmol/L (137-145)
[2023-07-07] MEDS ORDERED: LORazepam 2 MG/ML INJ IV STA (09:45)
[2023-07-07] MEDS ORDERED: POTASSIUM CHLORIDE ER 10 MEQ TAB.ER.PRT PO SCH (10:00)
--- NOTE | 2023-07-07 11:27 | P.PN ---
Subjective Progress Note Date: 07/06/23 (t) Patient was seen for a follow-up. Patient is more encephalopathic, very restless, moving from [id number]. She admits to having some headache. She only says "aanhaan" Objective - Vital Signs Vital signs: Vital Signs Temp 98.0 F 07/06/23 08:20 Pulse 58 L 07/06/23 14:00 Resp 20 07/06/23 14:00 BP 97/52 07/06/23 12:00 Pulse Ox 91 L 07/06/23 12:00 FiO2 Intake & Output 07/05/23 07/06/23 07/06/23 18:59 06:59 18:59 Intake Total 178.917 Balance 178.917 Weight 67.6 kg Intake: Intake, IV Titration 78.917 Amount Diltiazem 125 mg In 78.917 Sodium Chloride 0.9% 100 ml @ 5 MG/HR 5 mls/hr IV .Q24H [facility] Rx#:[id number] Oral 100 Other: Voiding Method Toilet Bedside Commode Bedside Commode Bedside Commode External Catheter # Voids 0 0 1 # Bowel Movements 1 1 - Exam As above. Patient not any improvement. Appears slightly more encephalopathic. - Labs CBC & Chem 7: 07/07/23 08:04 07/07/23 08:04 Labs: Abnormal Lab Results - Last 24 Hours (Table) 07/06/23 07/06/23 Range/Units 08:37 08:37 RBC 3.54 L (3.80-5.40) m/uL Hgb 9.7 L (11.4-16.0) gm/dL Hct 32.0 L (34.0-46.0) % MCHC 30.4 L (31.0-37.0) g/dL Neutrophils # 8.2 H (1.3-7.7) k/uL Lymphocytes # 0.5 L (1.0-4.8) k/uL Sodium 148 H (137-145) mmol/L Chloride 115 H (98-107) mmol/L BUN 41 H (7-17) mg/dL Creatinine 1.33 H (0.52-1.04) mg/dL Glucose 115 H (74-99) mg/dL Assessment and Plan Assessment: * Probable TIA, symptoms resolved * New onset atrial fibrillation with RVR * Recurrent paraesophageal hiatal hernia, Adhesions, GERD, status post l aparoscopic repair of the paraesophageal hiatal hernia 07/01/2023. * Metabolic encephalopathy, likely due to factors mentioned above and below * Hypernatremia, due to dehydration * Hypokalemia being corrected * Acute kidney injury * Hypertension * Hyperlipidemia * Chronic back pain * History of back surgery Plan: * Patient's encephalopathy seems to be getting worse. * Check CT head, EEG. * Agree with starting Eliquis 5 mg twice a day for stroke prevention related to atrial fibrillation * Patient's all focal neurological symptoms have resolved. Current NIH stroke scale is 0. * Patient is mildly encephalopathic at this time, due to reasons mentioned above. 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 No need to repeat MRA/CTA. * 2-D echo completed, results pending. * B12 1816, folate 7.60. We will start folate replacement. TSH normal 0.701. * Medical management of the various conditions as per IM. Discussed with primary team.
[2023-07-07] MEDS: PIPERACILLIN-TAZOBACTAM 3.375 GM in SODIUM CHLORIDE 0.9% 100 ML IVPB SCH ×2 (13:15→15:53)
[2023-07-07] MEDS: LIDOCAINE 4% PATCH TOPICAL SCH (13:16)
--- NOTE | 2023-07-07 13:38 | EEG ---
DATE OF SERVICE: 07/06/2023 ELECTROENCEPHALOGRAM REPORT PREAMBLE: This is an 82-year-old female with altered mental status. EEG FINDINGS: This is a 21-channel digital EEG recorded with video component, utilizing 10/20 international system with referential and bipolar montages. The background consists of poorly developed and regulated, mixed frequencies of low amplitude 4-6 hertz theta, mixed with low amplitude 1-2 hertz delta activity seen in bihemispheric region. Background does not seem to be clearly reactive to eye opening or closing. Photic stimulation and hyperventilation were not done. Some intermittent sleep was seen with presence of sleep spindles. No focal or generalized epileptiform activity was seen. EKG channel showed arrhythmia. IMPRESSION: This is an abnormal EEG due to background slowing of moderate to severe degree. This is suggestive of generalized cerebral dysfunction as can be seen with toxic metabolic encephalopathy or related to diffuse structural brain abnormality. Clinical correlation is recommended. No epileptiform activity was seen. MMPATL / IJN: [id number] / MTDD
--- NOTE | 2023-07-07 14:23 | XR ---
EXAMINATION TYPE: XR chest 1V portable DATE OF EXAM: 07/07/2023 HISTORY: Shortness of breath. COMPARISON: 07/04/2023 TECHNIQUE: Single view of the chest is submitted. FINDINGS: Demonstrated are scattered senescent parenchymal change. Left lower lobe infiltrate and/or atelectasis. The heart is stable. Hilar and mediastinal structures are within normal limits. Degenerative changes are seen of the dorsal spine. IMPRESSION: 1. Left lower lobe infiltrate and/or atelectasis.
[2023-07-07] MEDS: POTASSIUM CHLORIDE 10 MEQ in WATER FOR INJECTION 1 100ML.BAG IVPB SCH ×4 (14:41→18:31)
--- NOTE | 2023-07-07 15:08 | P.PN ---
Subjective Progress Note Date: 07/07/23 CHIEF COMPLAINT: Recurrent paraesophageal hiatal hernia HISTORY OF PRESENT ILLNESS: Patient is postop day #6 status post laparoscopic repair of paraesophageal hiatal hernia with mesh, lysis of adhesions and partial gastrectomy. Patient continues to remain confused Dr. Brown did order a computed tomography scan of the chest abdomen pelvis he received reviewed the results with Dr. Limon. There was no evidence of leak. Official report is still pending. Patient is followed by neurology they did a EEG. Patient also requiring Ativan. Patient did not eat breakfast this morning. Patient does not appear to have any abdominal pain. She did have a large bowel movement yesterday. Afebrile. WBC is 9.2 hgb 10.3 platelets 270 sodium is 145 potassium 3.3 and being replaced creatinine 1.13 lactic acid 1.2. Chest x-ray showing a left lower lobe infiltrate and/or atelectasis. Computed tomography scan brain small old lacunar infarct left basal ganglion. Chronic appearing periventricular white matter ischemic changes. PHYSICAL EXAM: VITAL SIGNS: Reviewed. GENERAL: Well-developed in no acute distress. ABDOMEN: Soft. Nondistended. Nontender. Incision sites clean dry and intact NEUROLOGIC: confused ASSESSMENT: 1. Recurrent paraesophageal hiatal hernia, Adhesions, GERD 2. A. fib with RVR 3. Altered mental status. Metabolic encephalopathy, possible TIA PLAN: -Continue full liquids -Appreciate enterprise resource planning consultant's recommendations -Continue to hold Eliquis -Repeat labs in a.m. Physician Tableau Report Developer note has been reviewed by physician. Signing provider agrees with the documented findings, assessment, and plan of care. Objective - Vital Signs Vital signs: Vital Signs Temp 98.0 F 07/06/23 20:00 Pulse 61 07/07/23 04:00 Resp 20 07/07/23 04:00 BP 129/79 07/07/23 04:00 Pulse Ox 96 07/07/23 04:00 FiO2 Intake & Output 07/06/23 07/07/23 07/07/23 18:59 06:59 18:59 Other: Voiding Method Bedside Commode Bedside Commode # Voids 0 1 2 - Labs CBC & Chem 7: 07/07/23 08:04 07/07/23 08:04 Labs: Abnormal Lab Results - Last 24 Hours (Table) 12/13/23 12/14/23 12/14/23 Range/Units 08:37 08:04 08:04 RBC 3.71 L (3.80-5.40) m/uL Hgb 10.3 L (11.4-16.0) gm/dL Hct 32.8 L (34.0-46.0) % Potassium 3.3 L (3.5-5.1) mmol/L Chloride 112 H (98-107) mmol/L BUN 46 H (7-17) mg/dL Creatinine 1.13 H (0.52-1.04) mg/dL Glucose 129 H (74-99) mg/dL Vitamin B12 1816.0 H (200.0-944.0) pg/mL
--- NOTE | 2023-07-07 15:15 | CT ---
EXAMINATION TYPE: CT ChestAbdPelvis w con CT DLP: 1578.8 mGycm, Automated exposure control for dose reduction was used. DATE OF EXAM: 07/07/2023 1:09 PM COMPARISON: 11/03/2021 CT. CLINICAL INDICATION:Female, 82 years old with history of Shortness of breath, recent surgery; PHH, R/ O SEPSIS, AMS, BEST IMAGES POSSIBLE Technique: CT ChestAbdPelvis w con; Multiple axial images were obtained. Two-dimensional coronal and sagittal reconstructions were obtained. Contrast used:80 mL of Isovue 300 with IV Contrast, Oral contrast used: without Oral Contrast Findings: CHEST: Motion limited exam. LUNGS/ PLEURA: Small left and trace right pleural effusion with associated atelectasis on the left. S ome peripheral opacities in the right upper lung which are groundglass. AIRWAY: Patent and unremarkable. HEART: Size within normal limits. MEDIASTINUM: No gross evidence of adenopathy. VASCULATURE: Atherosclerotic calcifications are present throughout the aorta and its branches. MUSCULOSKELETAL: No acute osseous abnormalities. SOFT TISSUES/LYMPH NODES: There is soft tissue desiccation in the right breast. LOWER NECK: No significant findings. ABDOMEN: Motion limited exam. ABDOMEN LIVER: Unremarkable GALLBLADDER AND BILE DUCTS: The gallbladder appears surgically absent. PANCREAS: Unremarkable. SPLEEN: Unremarkable. ADRENAL GLANDS: Unremarkable. KIDNEYS AND URETERS: No evidence of hydronephrosis or renal calculus. The ureters are unremarkable. PELVIS BLADDER: Unremarkable REPRODUCTIVE: Unremarkable. ABDOMEN & PELVIS STOMACH AND BOWEL: No evidence of bowel obstruction. Postsurgical changes gastroesophageal junction. Scattered colonic diverticula. PERITONEUM: No evidence of pneumoperitoneum or free fluid. VASCULATURE: Moderate atherosclerotic calcifications are present throughout the abdominal aorta and i ts branches. MUSCULOSKELETAL: No acute osseous abnormalities, postsurgical changes at L3-L4 and L5. Hardware appea rs intact. There is multilevel degeneration changes throughout the remainder of the spine. LYMPH NODES: No gross evidence for lymphadenopathy. SOFT TISSUE/ABDOMINAL WALL: Unremarkable IMPRESSION: Motion limited exam. 1. Right upper lung peripheral groundglass opacities which could represent atypical pneumonia 2. Small left and trace right pleural effusions. No other definitive evidence for source of infectio us process. 3. 4. No evidence for acute infectious process within the abdomen or pelvis. 5. Colonic diverticulosis. 6. Postsurgical changes of the spine hardware appears intact. Follow up recommendations for incidental pulmonary nodules are per [employer]?s [employer] or [employer].
[2023-07-07] MEDS: HEPARIN SODIUM,PORCINE 5,000 UNIT/ML 1 ML VIAL SQ SCH (15:53)
[2023-07-07] MEDS: IPRATROPIUM-ALBUTEROL 3 ML NEB INHALATION PRN ×2 (15:54→21:06)
[2023-07-07] MEDS: PARoxetine 20 MG TAB PO SCH (15:55)
[2023-07-07] MEDS: METOPROLOL TARTRATE 50 MG TAB PO SCH ×2 (15:55→20:40)
[2023-07-07] MEDS: FOLIC ACID 1 MG TAB PO SCH (15:56)
[2023-07-07] MEDS: rOPINIRole HCL 4 MG TABLET PO SCH ×3 (15:56→23:03)
[2023-07-07] MEDS ORDERED: HALOPERIDOL LACTATE 5 MG/ML 1 ML VIAL IM PRN (18:35)
--- NOTE | 2023-07-07 20:24 | P.PN ---
Subjective Progress Note Date: 07/07/23 Patient is evaluated today sitting up in the chair on medical floor. Heart rate is elevated this morning in the 150s irregular pending EKG and telemetry has also been ordered. Further recommendations pending the EKG. Patient denies any chest pain, no shortness of breath, states she feels anxious. Currently NPO. She is postoperative day #3 paraesophageal hernia repair. Has been receiving D5 1/2 NS at 75 mls/hr. Received a dose of IV lasix around 6am, BNP is elevated at 3460. 07/05/2023 Patient evaluated on the stepdown unit today currently postoperative day #4 paraesophageal hernia repair. Having 10/10 abdominal discomfort per patient however passing gas and having increased bowel sounds. Receiving IV dilaudid for pain management. On IV cardizem at 5 will be transitioned to metoprolol and cleared for anticoagulation by surgery was started on eliquis. Patient had complaints of left sided weakness which strength appears equal on examination. Had brain CT showing degenerative and remote ischemic change with no evidence of acute hemorrhage or mass effect. 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 Neurology was consulted. Chest xray follow up yesterday reveals increasing air underneath the right hemidiaphragm could reflect colonic interposition. Pneumoperitoneum not excluded. Left basilar opacity may reflect atelectasis or pneumonia. Patient was receiving IV fluids which were stopped due to proBNP of over 7000. Received second dose of IV lasix. Labs today showing sodium 147, potassium 2.9. 07/06/2023 Patient is evaluated today on the stepdown unit currently postoperative day #5 paraesophageal hernia repair. Patient today is alert x 3 however confused thrashing around. Not complaining of pain. Has been started on full liquid diet and tolerating did have a large bowel movement. Abdomen soft. Remains on IV zosyn. 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 [place] patient had a TIA. No left sided weakness noted today. Possible left facial droop however difficult to assess due to patient not being able to sit still. Labs today reveal sodium 148, potassium 3.6, BUN 41, creatinine 1.33. TSH normal 0.701. Patient is urinating had a bladder scan today no retention noted. Echocardiogram was a technically difficult study however LV function appears grossly normal at 55%, mild MR and mild biatrial dilation. 07/07/2023 Patients mentation has not much improved nursing reports continued slurred speech patient unable to swallow pills. Neurology following, patient had repeat brain CT showing chronic appearing periventricular white matter ischemic changes. Small old lacunar infarct in the basal ganglion. She is postoperative day #6 paraesophageal hernia repair. Had new onset atrial fibrillation with RVR suspected TIA. Underwent EEG today showing toxic metabolic encephalopathy and moderate to severe background slowing. No epileptiform activity noted. Patient with some scattered wheezing today and chest xray was completed which reveals a left lower lobe infiltrate and or atelectasis. Patient does have IS at bedside has not been using. Will order ST consulation rule out aspiration. Recommend at this time conservative management and avoid narcotics if possible. Patient continues on D5 water at 75 mls/hr and sodium has normalized to 145, potassium 3.3, BUN 46, creatinine 1.13. B12 1816 and folate 7.60. Patient remains afebrile, heart rate of 72, blood pressure 124/71, 96% on 2L of oxygen. Review of Systems Constitutional: Denied any fatigue denied any fever. Cardio vascular: Denied any chest pain, palpitations Gastrointestinal: Denied any nausea, vomiting, diarrhea Pulmonary: Denied any shortness of breath cough Neurologic: Denied any new focal deficits All inpatient medications were reviewed and appropriate changes in these medications as dictated in the interval history and assessment and plan. PHYSICAL EXAMINATION: GENERAL: The patient is alert and oriented x1, confused, thrashing, not in any acute distress. Well developed, well nourished. HEENT: Pupils are round and equally reacting to light. EOMI. No scleral icterus. No conjunctival pallor. Normocephalic, atraumatic. No pharyngeal erythema. No thyromegaly. CARDIOVASCULAR: S1 and S2 present. No murmurs, rubs, or gallops. Tachycardic irregular. PULMONARY: Faint scattered wheezing ABDOMEN: Soft, nontender, nondistended, normoactive bowel sounds. No palpable organomegaly. Post surgical. MUSCULOSKELETAL: No joint swelling or deformity. EXTREMITIES: No cyanosis, clubbing, or pedal edema. NEUROLOGICAL: Gross neurological examination did not reveal any focal deficits however patient is confused. Has some slurred speech. SKIN: No rashes. Assessment -Recurrent paraesophageal hernia postoperative day #6 laproscopic surgical repair with mesh remains on IV zosyn postoperatively -New onset atrial fibrillation with RVR treated with IV cardizem, cardiology consultation has been started on eliquis and at this time general surgery recommending to hold the eliquis. -Hypokalemia due to diuresis and NPO diet improved with supplementation -Hypernatremia likely from decreased free water intake, hypovolemic started on Dextrose 5% at 75 mls/hr and sodium has normalized. Will continue D5 at this time patient has minimal oral intake remains confused. -Altered mental status likely acute metabolic encephalopathy from [place] and hypernatremia not improved neurology following undergoing work up. Seroquel has been added for acute agitation. -Pt reports left sided weakness neurology consultation patient had brain CT likely due to TIA and symptoms have resolved. Cardiology recommending anticoagulated with eliquis 2.5 mg BID which is currently being held by general surgery, and continues on statin therapy. Per neurology no need for MRI. -Acute kidney injury prerenal due to dehydration will add D5 at 75 mls/hr and repeat labs in AM, No urinary retention noted. Renal function improving will repeat labs in AM -Hypertension -Hyperlipidemia -Restless leg syndrome recommending to hold gabapentin at this time due to confusion; will be continued on requip -Gastroesophageal reflux disease -Anxiety/Depression continues on paxil daily and xanax has been added as needed -Chronic back pain with prior lumbar decompression and fusion -Former nicotine use -Hx of TIA GI prophylaxis DVT prophylaxis Full Code Plan Patient transitioned to oral metoprolol heart rate now controlled recommending to continue holding losartan at this time. Cardiology consultation in place Patient currently on cardiac floor on cardiac telemetry monitoring. Remains on IV zosyn post surgically Discussed diet with general surgery has been upgraded to full liquid diet and encouraged to increase oral water intake Neurology consultation Patient has been started on D5 water at 75 mls/hr which will be continued Patient scheduled to undergo abominal chest pelvis CT today with general surgery. Replace potassium Repeat labs in AM PT/OT consultation The impression and plan of care has been dictated by Teresita Jones Nurse Practitioner as directed. Dr. Samra MD I have performed a history and physical examination and medical decision making of this patient, discussed the same with the dictator, and agree with the dictators assessment and plan as written, documented as a scribe. Based on total visit time, I have performed more than 50% of this visit. Objective - Vital Signs Vital signs: Vital Signs Temp 98.7 F 07/07/23 15:11 Pulse 72 07/07/23 16:08 Resp 18 07/07/23 15:11 BP 124/71 07/07/23 15:11 Pulse Ox 96 07/07/23 15:11 FiO2 Intake & Output 07/07/23 07/07/23 07/08/23 06:59 18:59 06:59 Other: Voiding Method Bedside Commode Diaper # Voids 1 2 - Labs CBC & Chem 7: 07/07/23 08:04 07/07/23 08:04 Labs: Abnormal Lab Results - Last 24 Hours (Table) 07/07/23 07/07/23 Range/Units 08:04 08:04 RBC 3.71 L (3.80-5.40) m/uL Hgb 10.3 L (11.4-16.0) gm/dL Hct 32.8 L (34.0-46.0) % Potassium 3.3 L (3.5-5.1) mmol/L Chloride 112 H (98-107) mmol/L BUN 46 H (7-17) mg/dL Creatinine 1.13 H (0.52-1.04) mg/dL Glucose 129 H (74-99) mg/dL Assessment and Plan Time with Patient: Less than 30
[2023-07-07] MEDS: ATORVASTATIN 20 MG TAB PO SCH (20:40)
[2023-07-07] MEDS ORDERED: QUEtiapine 25 MG TAB PO ONE (21:00)
[2023-07-07] MEDS: METOPROLOL TARTRATE 5 MG/5 ML VIAL IVP PRN (22:13)
[2023-07-07] MEDS ORDERED: DEXTROSE 5% IN WATER 100 ML with AMIODARONE 150 MG IV ONE (23:00)
[2023-07-08] MEDS: HEPARIN SODIUM,PORCINE 5,000 UNIT/ML 1 ML VIAL SQ SCH ×2 (00:31→08:18)
[2023-07-08] MEDS ORDERED: AMIODARONE 360 MG in DEXTROSE 5% IN WATER 200 ML IV ONE ×4 (01:00→08:00)
[2023-07-08 01:20] LABS: Amorphous Sediment,Urine Few /hpf; Appearance,Urine Cloudy (Clear); Bacteria,Urine Rare /hpf; Bilirubin,Urine Negative (Negative); Blood,Urine Trace (Negative); Color,Urine Yellow; Glucose,Urine (UA) Negative (Negative); Ketones,Urine Negative (Negative); Leukocyte Esterase,Urine Small (Negative); Mucus,Urine Rare /hpf; Nitrite,Urine Negative (Negative); PH, Urine 6.5 (5.0-8.0); Protein,Urine 1+ (Negative); RBC,Urine 2 /hpf (0-5); Squamous Epithelial Cell,Urine 6 /hpf (0-4); Urobilinogen,Urine <2.0 mg/dL (<2.0); WBC,Urine 13 /hpf (0-5)
[2023-07-08 01:22] LABS: Specific Gravity,Urine >1.050 (1.001-1.035)
[2023-07-08] MEDS: PIPERACILLIN-TAZOBACTAM 3.375 GM in SODIUM CHLORIDE 0.9% 100 ML IVPB SCH ×4 (01:25→23:22)
[2023-07-08] MEDS: IPRATROPIUM-ALBUTEROL 3 ML NEB INHALATION PRN (06:12)
[2023-07-08 07:57] LABS: African American GFR (CKD) >90 (>60 ml/min/1.73 sqM); Anion Gap 10 mmol/L; Blood Urea Nitrogen 27 mg/dL (7-17); Calcium 8.7 mg/dL (8.4-10.2); Carbon Dioxide 21 mmol/L (22-30); Chloride 113 mmol/L (98-107); Glucose 153 mg/dL (74-99); Non-African American GFR(CKD) 83 (>60 ml/min/1.73 sqM); Potassium 3.5 mmol/L (3.5-5.1); Sodium 144 mmol/L (137-145)
[2023-07-08 07:59] LABS: Basophils # (A) 0.1 k/uL (0-0.2); Basophils % (A) 1 %; Eosinophils # (A) 0.1 k/uL (0-0.7); Eosinophils % (A) 1 %; HCT 33.7 % (34.0-46.0); HGB 10.4 gm/dL (11.4-16.0); Hypochromasia Marked; Lymphocytes # (A) 0.5 k/uL (1.0-4.8); Lymphocytes % (A) 5 %; MCH 27.7 pg (25.0-35.0); MCHC 30.9 g/dL (31.0-37.0); MCV 89.7 fL (80.0-100.0); Mean Platelet Volume 8.1; Monocytes # (A) 0.4 k/uL (0-1.0); Monocytes % (A) 4 %; Neutrophils # (A) 8.5 k/uL (1.3-7.7); Neutrophils % (A) 88 %; Platelet Count 264 k/uL (150-450); RBC 3.75 m/uL (3.80-5.40); RDW 14.8 % (11.5-15.5); WBC 9.7 k/uL (3.8-10.6)
[2023-07-08] MEDS: FOLIC ACID 1 MG TAB PO SCH (08:19)
[2023-07-08] MEDS: METOPROLOL TARTRATE 50 MG TAB PO SCH ×2 (08:19→20:10)
[2023-07-08] MEDS: PARoxetine 20 MG TAB PO SCH (08:19)
[2023-07-08] MEDS: rOPINIRole HCL 4 MG TABLET PO SCH ×3 (08:20→20:10)
[2023-07-08] MEDS: LIDOCAINE 4% PATCH TOPICAL SCH (08:20)
[2023-07-08] MEDS ORDERED: POTASSIUM CHLORIDE ER 20 MEQ TAB.ER PO STA (10:11)
[2023-07-08] MEDS: POTASSIUM CHLORIDE 10 MEQ in WATER FOR INJECTION 1 100ML.BAG IVPB SCH ×2 (10:15→11:47)
--- NOTE | 2023-07-08 12:45 | P.PN ---
Subjective Progress Note Date: 07/07/23 Patient was seen for a follow-up. Patient is more encephalopathic, very restless, moving from [id number]. Objective - Vital Signs Vital signs: Vital Signs Temp 98.7 F 07/07/23 15:11 Pulse 72 07/07/23 16:08 Resp 18 07/07/23 15:11 BP 124/71 07/07/23 15:11 Pulse Ox 96 07/07/23 15:11 FiO2 Intake & Output 07/06/23 07/07/23 07/07/23 18:59 06:59 18:59 Other: Voiding Method Bedside Commode Bedside Commode Diaper # Voids 0 1 2 - Exam As above. Patient not any improvement. Appears slightly more encephalopathic. - Labs CBC & Chem 7: 07/08/23 07:25 07/08/23 07:18 Labs: Abnormal Lab Results - Last 24 Hours (Table) 07/06/23 07/07/23 07/07/23 Range/Units 08:37 08:04 08:04 RBC 3.71 L (3.80-5.40) m/uL Hgb 10.3 L (11.4-16.0) gm/dL Hct 32.8 L (34.0-46.0) % Potassium 3.3 L (3.5-5.1) mmol/L Chloride 112 H (98-107) mmol/L BUN 46 H (7-17) mg/dL Creatinine 1.13 H (0.52-1.04) mg/dL Glucose 129 H (74-99) mg/dL Vitamin B12 1816.0 H (200.0-944.0) pg/mL Assessment and Plan Assessment: * Altered mental status, likely due to toxic metabolic encephalopathy. * Probable TIA, symptoms resolved * New onset atrial fibrillation with RVR * Recurrent paraesophageal hiatal hernia, Adhesions, GERD, status post laparoscopic repair of the paraesophageal hiatal hernia 07/01/2023. * Hypernatremia, due to dehydration, now resolved * Hypokalemia being corrected * Acute kidney injury, improving * Hypertension * Hyperlipidemia * Chronic back pain * History of back surgery Plan: * Patient's encephalopathy seems to be getting worse. Patient on Haldol 1 mg IM every 6 hours when necessary, per IM. * Patient currently on Zosyn. * CT head revealed chronic appearing periventricular white matter ischemic changes. 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 I personally reviewed CT head, agree with the findings, although appears patient has old lacune's and bilateral basal ganglia. * EEG was abnormal due to background slowing of moderate to severe degree. This is suggestive of generalized cerebral dysfunction as can be seen with toxic metabolic encephalopathy or related to diffuse structural brain abnormality. Clinical correlation is recommended. No epileptiform activity was seen. * CT of abdomen and pelvis revealed right upper lung peripheral groundglass opacities which could represent atypical pneumonia. Small left and trace right pleural effusions. No other definitive evidence for source of infectious process. No evidence of acute infectious process within the abd omen or pelvis. Colonic diverticulosis. * Consider ID for possible pneumonia. * Agree with starting Eliquis 5 mg twice a day for stroke prevention related to atrial fibrillation * Patient's all focal neurological symptoms have resolved. Current NIH stroke scale is 0. 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 No need to repeat MRA/CTA. * 2-D echo revealed grossly normal left-ventricular systolic function with EF 55%. Mild right ventricle dilation. Mild MR, mild biatrial dilation. Sclerotic aortic valve with no stenosis. Left atrial mild dilation. * B12 1816, folate 7.60. We will start folate replacement. TSH normal 0.701. * Medical management of the various conditions as per IM.
--- NOTE | 2023-07-08 12:57 | P.PN ---
Subjective Progress Note Date: 07/08/23 CHIEF COMPLAINT: Recurrent paraesophageal hiatal hernia HISTORY OF PRESENT ILLNESS: Patient is postop day #7 status post laparoscopic repair of paraesophageal hiatal hernia with mesh, lysis of adhesions and partial gastrectomy. Patient's confusion is slightly better today. She does know her name. Oral intake is poor. Denies any abdominal pain. No nausea or vomiting. No bowel movement. She did have A. fib with RVR and did require to be placed on IV amiodarone. Computed tomography scan chest abdomen and pelvis results reported a right upper lung and peripheral groundglass opacity which could r epresent atypical pneumonia. Small left and trace right pleural effusions. No evidence for acute infectious process within the abdomen or pelvis. Colonic diverticulosis. Postsurgical changes of the spine hardware appear intact. EEG is suggestive of generalized cerebral dysfunction seen with toxic metabolic encephalopathy or related to diffuse structural brain abnormality. Patient followed by neurology. Afebrile. WBC is 9.7 Hgb 10.4 platelets 264 sodium 144 potassium is 3.5 creatinine 0.68. Neurology has ordered Haldol for patient's encephalopathy PHYSICAL EXAM: VITAL SIGNS: Reviewed. GENERAL: Well-developed in no acute distress. ABDOMEN: Soft. Nondistended. Nontender. Incision sites clean dry and intact NEUROLOGIC: less confused ASSESSMENT: 1. Recurrent paraesophageal hiatal hernia, Adhesions, GERD 2. A. fib with RVR 3. Altered mental status. Possible toxic Metabolic encephalopathy 4. Possible TIA PLAN: -Continue full liquids -Resume Eliquis -Discontinue [place] -Continue to monitor -Continue IV fluids -Continue antibiotics Physician [employer] note has been reviewed by physician. Signing provider agrees with the documented findings, assessment, and plan of care. Objective - Vital Signs Vital signs: Vital Signs Temp 97.9 F 07/08/23 08:00 Pulse 61 07/08/23 08:00 Resp 20 07/08/23 08:00 BP 134/62 07/08/23 08:00 Pulse Ox 98 07/08/23 08:00 FiO2 Intake & Output 07/07/23 07/08/23 07/08/23 18:59 06:59 18:59 Intake Total 0 Output Total 75 Balance -75 0 Intake: Oral 0 Output: Urine 75 Other: Voiding Method Diaper Diaper Diaper # Voids 2 1 # Bowel Movements 1 - Labs CBC & Chem 7: 07/08/23 07:25 07/08/23 07:18 Labs: Abnormal Lab Results - Last 24 Hours (Table) 07/07/23 07/08/23 07/08/23 Range/Units 14:07 00:15 07:18 RBC (3.80-5.40) m/uL Hgb (11.4-16.0) gm/dL Hct (34.0-46.0) % MCHC (31.0-37.0) g/dL Neutrophils # (1.3-7.7) k/uL Lymphocytes # (1.0-4.8) k/uL Chloride 113 H (98-107) mmol/L Carbon Dioxide 21 L (22-30) mmol/L BUN 27 H (7-17) mg/dL Glucose 153 H (74-99) mg/dL Procalcitonin 0.60 H (0.02-0.09) ng/mL Urine Appearance Cloudy H (Clear) Ur Specific [place] >1.050 H (1.001-1.035) Urine Protein 1+ H (Negative) Urine Blood Trace H (Negative) Ur Leukocyte Esterase Small H (Negative) Urine WBC 13 H (0-5) /hpf Ur Squamous Epith Cells 6 H (0-4) /hpf Amorphous Sediment Few H (None) /hpf Urine Bacteria Rare H (None) /hpf Urine Mucus Rare H (None) /hpf 07/08/23 Range/Units 07:25 RBC 3.75 L (3.80-5.40) m/uL Hgb 10.4 L (11.4-16.0) gm/dL Hct 33.7 L (34.0-46.0) % MCHC 30.9 L (31.0-37.0) g/dL Neutrophils # 8.5 H (1.3-7.7) k/uL Lymphocytes # 0.5 L (1.0-4.8) k/uL Chloride (98-107) mmol/L Carbon Dioxide (22-30) mmol/L BUN (7-17) mg/dL Glucose (74-99) mg/dL Procalcitonin (0.02-0.09) ng/mL Urine Appearance (Clear) Ur Specific [place] (1.001-1.035) Urine Protein (Negative) Urine Blood (Negative) Ur Leukocyte Esterase (Negative) Urine WBC (0-5) /hpf Ur Squamous Epith Cells (0-4) /hpf Amorphous Sediment (None) /hpf Urine Bacteria (None) /hpf Urine Mucus (None) /hpf
--- NOTE | 2023-07-08 13:43 | P.PN ---
Subjective HISTORY OF PRESENT ILLNESS: This is a 82-year-old female with a past medical history significant for anxiety, former nicotine dependence, hypertension, hyperlipidemia, and TIA. Patient does not follow with a rn or lpn. We have been asked to see the patient in consultation for new onset A. fib with RVR. Patient examined at the bedside. Patient is status post laparoscopic repair of paraesophageal hiatal hernia with mesh, lysis of adhesions, and partial gastrectomy. Postop day #4. Yesterday patient developed atrial fibrillation with RVR and was transferred to the cardiac stepdown for closer monitoring. She was started on IV Cardizem. She is still in atrial fibrillation with heart rates between [id number]. The pa tient is pressure to this morning as she states her pain is not well controlled. She also reports feeling like there is a cup still in her left hand although she is not holding anything. Neuro exam was within normal limits otherwise. * EKG reveals A. fib with RVR * Chest xray increasing air underneath the right hemidiaphragm could reflect colonic interposition. Pneumoperitoneum excluded. Left basilar opacity. * Laboratory data: ProBNP 7370. * Current home cardiac medications include losartan 50 mg in the morning and aspirin 81 mg a day 07/06/2023 Patient examined this morning at the bedside. Patient is confused and thrashing around in the bed at the time of examination. Patient denies chest pain or pressure. She denies shortness of breath. Patient has converted and is maintaining sinus mechanism this morning. She is anticoagulated with Eliquis. CT of the brain completed with no evidence of acute hemorrhage or mass effect. 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 07/08/2023 Cardiology was reconsulted secondary to atrial fibrillation with RVR. Patient examined this morning at the bedside. Patient went into A. fib with RVR overnight. She was given 5 mg of IV push Lopressor. She also was given an amiodarone bolus and started on a drip per protocol. She has since converted to sinus mechanism with PACs. Her mentation continues to be altered although improving. PHYSICAL EXAM: VITAL SIGNS: Reviewed. GENERAL: Well-developed in no acute distress. HEENT: Head is normocephalic. Pupils are equal, round. Sclerae anicteric. Mucous membranes of the mouth are moist. Neck supple. No JVD or thyromegaly LUNGS: Respirations even and unlabored. Lungs essentially clear to auscultation bilaterally. HEART: Regular rate and rhythm. S1 and S2 heard. ABDOMEN: Soft. Nondistended. Nontender. EXTREMITIES: Normal range of motion. No clubbing or cyanosis. Peripheral pulses intact. No lower extremity edema NEUROLOGIC: Awake and alert. Oriented x 3. ASSESSMENT: Status post laparoscopic repair of paraesophageal hiatal hernia with mesh, lysis of adhesions, and partial gastrectomy New onset paroxysmal atrial fibrillation with RVR, currently maintaining sinus mechanism Sensation of holding a cup in left hand, r/o neuro etiology with hx of TIA, status post CT of the brain which was negative for acute process Hypertension Hyperlipidemia History of TIA Former nicotine dependence Anxiety Acute kidney injury Hypokalemia Hypernatremia Metabolic encephalopathy PLAN: Continue current dose of metoprolol Continue anticoagulation with Eliquis Add amiodarone after IV infusion is completed. 400 mg twice a day for one week, then decrease to 200 mg twice a day for one week, then decrease to 200 mg daily Continue telemetry monitoring Further recommendations pending patient's course Nurse practitioner note has been reviewed by physician. Signing provider agrees with the documented findings, assessment, and plan of care. Objective - Vital Signs Vital signs: Vital Signs Temp 97.9 F 07/08/23 08:00 Pulse 61 07/08/23 08:00 Resp 20 07/08/23 08:00 BP 134/62 07/08/23 08:00 Pulse Ox 98 07/08/23 08:00 FiO2 Intake & Output 07/07/23 07/08/23 07/08/23 18:59 06:59 18:59 Intake Total 0 Output Total 75 Balance -75 0 Intake: Oral 0 Output: Urine 75 Other: Voiding Method Diaper Diaper # Voids 2 1 # Bowel Movements 1 - Labs CBC & Chem 7: 07/08/23 07:25 07/08/23 07:18 Labs: Abnormal Lab Results - Last 24 Hours (Table) 07/07/23 07/07/23 07/08/23 Range/Units 08:04 14:07 00:15 RBC (3.80-5.40) m/uL Hgb (11.4-16.0) gm/dL Hct (34.0-46.0) % MCHC (31.0-37.0) g/dL Neutrophils # (1.3-7.7) k/uL Lymphocytes # (1.0-4.8) k/uL Potassium 3.3 L (3.5-5.1) mmol/L Chloride 112 H (98-107) mmol/L Carbon Dioxide (22-30) mmol/L BUN 46 H (7-17) mg/dL Creatinine 1.13 H (0.52-1.04) mg/dL Glucose 129 H (74-99) mg/dL Procalcitonin 0.60 H (0.02-0.09) ng/mL Urine Appearance Cloudy H (Clear) Ur Specific [place] >1.050 H (1.001-1.035) Urine Protein 1+ H (Negative) Urine Blood Trace H (Negative) Ur Leukocyte Esterase Small H (Negative) Urine WBC 13 H (0-5) /hpf Ur Squamous Epith Cells 6 H (0-4) /hpf Amorphous Sediment Few H (None) /hpf Urine Bacteria Rare H (None) /hpf Urine Mucus Rare H (None) /hpf 07/08/23 07/08/23 Range/Units 07:18 07:25 RBC 3.75 L (3.80-5.40) m/uL Hgb 10.4 L (11.4-16.0) gm/dL Hct 33.7 L (34.0-46.0) % MCHC 30.9 L (31.0-37.0) g/dL Neutrophils # 8.5 H (1.3-7.7) k/uL Lymphocytes # 0.5 L (1.0-4.8) k/uL Potassium (3.5-5.1) mmol/L Chloride 113 H (98-107) mmol/L Carbon Dioxide 21 L (22-30) mmol/L BUN 27 H (7-17) mg/dL Creatinine (0.52-1.04) mg/dL Glucose 153 H (74-99) mg/dL Procalcitonin (0.02-0.09) ng/mL Urine Appearance (Clear) Ur Specific [place] (1.001-1.035) Urine Protein (Negative) Urine Blood (Negative) Ur Leukocyte Esterase (Negative) Urine WBC (0-5) /hpf Ur Squamous Epith Cells (0-4) /hpf Amorphous Sediment (None) /hpf Urine Bacteria (None) /hpf Urine Mucus (None) /hpf
[2023-07-08] MEDS: IPRATROPIUM-ALBUTEROL 3 ML NEB INHALATION SCH ×2 (15:11→21:09)
[2023-07-08] MEDS: DEXTROSE 5% IN WATER 1,000 ML IV SCH (15:39)
--- NOTE | 2023-07-08 16:00 | P.PN ---
Subjective Progress Note Date: 07/08/23 Patient is evaluated today sitting up in the chair on medical floor. Heart rate is elevated this morning in the 150s irregular pending EKG and telemetry has also been ordered. Further recommendations pending the EKG. Patient denies any chest pain, no shortness of breath, states she feels anxious. Currently NPO. She is postoperative day #3 paraesophageal hernia repair. Has been receiving D5 1/2 NS at 75 mls/hr. Received a dose of IV lasix around 6am, BNP is elevated at 3460. 07/05/2023 Patient evaluated on the stepdown unit today currently postoperative day #4 paraesophageal hernia repair. Having 10/10 abdominal discomfort per patient however passing gas and having increased bowel sounds. Receiving IV dilaudid for pain management. On IV cardizem at 5 will be transitioned to metoprolol and cleared for anticoagulation by surgery was started on eliquis. Patient had complaints of left sided weakness which strength appears equal on examination. Had brain CT showing degenerative and remote ischemic change with no evidence of acute hemorrhage or mass effect. 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 Neurology was consulted. Chest xray follow up yesterday reveals increasing air underneath the right hemidiaphragm could reflect colonic interposition. Pneumoperitoneum not excluded. Left basilar opacity may reflect atelectasis or pneumonia. Patient was receiving IV fluids which were stopped due to proBNP of over 7000. Received second dose of IV lasix. Labs today showing sodium 147, potassium 2.9. 07/06/2023 Patient is evaluated today on the stepdown unit currently postoperative day #5 paraesophageal hernia repair. Patient today is alert x 3 however confused thrashing around. Not complaining of pain. Has been started on full liquid diet and tolerating did have a large bowel movement. Abdomen soft. Remains on IV zosyn. 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 [place] patient had a TIA. No left sided weakness noted today. Possible left facial droop however difficult to assess due to patient not being able to sit still. Labs today reveal sodium 148, potassium 3.6, BUN 41, creatinine 1.33. TSH normal 0.701. Patient is urinating had a bladder scan today no retention noted. Echocardiogram was a technically difficult study however LV function appears grossly normal at 55%, mild MR and mild biatrial dilation. 07/07/2023 Patients mentation has not much improved nursing reports continued slurred speech patient unable to swallow pills. Neurology following, patient had repeat brain CT showing chronic appearing periventricular white matter ischemic changes. Small old lacunar infarct in the basal ganglion. She is postoperative day #6 paraesophageal hernia repair. Had new onset atrial fibrillation with RVR suspected TIA. Underwent EEG today showing toxic metabolic encephalopathy and moderate to severe background slowing. No epileptiform activity noted. Patient with some scattered wheezing today and chest xray was completed which reveals a left lower lobe infiltrate and or atelectasis. Patient does have IS at bedside has not been using. Will order ST consulation rule out aspiration. Recommend at this time conservative management and avoid narcotics if possible. Patient continues on D5 water at 75 mls/hr and sodium has normalized to 145, potassium 3.3, BUN 46, creatinine 1.13. B12 1816 and folate 7.60. Patient remains afebrile, heart rate of 72, blood pressure 124/71, 96% on 2L of oxygen. 07/08/2023 Patient relates a with family at the bedside. Mentation has improved she is more awake alert and less confused. Currently postoperative day #7 paraesophageal hernia repair. Did require IV amiodarone overnight due to elevated heart rate up into the 150s. Cardiology has transitioned her to oral amiodarone today her heart rate is in the 70-80s. Anticoagulation has been resu med today. Patient remains on D5 water at 75 mls/hr. Also on IV zosyn since post surgical. Procalcitonin is elevated at 0.60. Chest xray showing left lower lobe infiltrate and or atelectasis. Her urinalysis was abnormal small leukocyte esterase, cloudy urine. Review of Systems Constitutional: Denied any fatigue denied any fever. Cardio vascular: Denied any chest pain, palpitations Gastrointestinal: Denied any nausea, vomiting, diarrhea Pulmonary: Denied any shortness of breath cough Neurologic: Denied any new focal deficits All inpatient medications were reviewed and appropriate changes in these medications as dictated in the interval history and assessment and plan. PHYSICAL EXAMINATION: GENERAL: The patient is alert and oriented x2, confused, not in any acute distress. Well developed, well nourished. HEENT: Pupils are round and equally reacting to light. EOMI. No scleral icterus. No conjunctival pallor. Normocephalic, atraumatic. No pharyngeal erythema. No thyromegaly. CARDIOVASCULAR: S1 and S2 present. No murmurs, rubs, or gallops. Tachycardic irregular. PULMONARY: Faint scattered wheezing ABDOMEN: Soft, nontender, nondistended, normoactive bowel sounds. No palpable organomegaly. Post surgical. MUSCULOSKELETAL: No joint swelling or deformity. EXTREMITIES: No cyanosis, clubbing, or pedal edema. NEUROLOGICAL: Gross neurological examination did not reveal any focal deficits however patient is confused. Has some slurred speech. SKIN: No rashes. Assessment -Recurrent paraesophageal hernia postoperative day #7 laproscopic surgical repair with mesh remains on IV zosyn postoperatively -New onset atrial fibrillation with RVR treated with IV cardizem and then required IV amiodarone and now on oral amiodarone. -Hypokalemia due to diuresis and NPO diet improved with supplementation -Hypernatremia likely from decreased free water intake, hypovolemic started on Dextrose 5% at 75 mls/hr and sodium has normalized. Will continue D5 at this time patient has minimal oral intake remains confused. -Altered mental status likely acute metabolic encephalopathy from [place]ANI[place] and hypernatremia not improved neurology following undergoing work up. Seroquel has been added for acute agitation. -Pt reports left sided weakness neurology consultation patient had brain CT likely due to TIA and symptoms have resolved. On statin therapy. and Now on eliquis 5 mg BID. -Acute kidney injury prerenal due to dehydration will add D5 at 75 mls/hr and repeat labs in AM, No urinary retention noted. Renal function improving will repeat labs in AM -Hypertension -Hyperlipidemia -Restless leg syndrome recommending to hold gabapentin at this time due to confusion; will be continued on requip -Gastroesophageal reflux disease -Anxiety/Depression continues on paxil daily and xanax has been added as needed -Chronic back pain with prior lumbar decompression and fusion -Former nicotine use -Hx of TIA GI prophylaxis DVT prophylaxis Full Code Plan Patient transitioned to oral metoprolol heart rate now controlled recommending to continue holding losartan at this time. oral amiodarone added today. Cardiology consultation in place Patient currently on cardiac floor on cardiac telemetry monitoring. Remains on IV zosyn post surgically Discussed diet with general surgery has been upgraded to full liquid diet and encouraged to increase oral water intake Neurology consultation Patient has been started on D5 water at 75 mls/hr which will be continued Eliquis has been resumed. Replace potassium Repeat labs in AM PT/OT consultation The impression and plan of care has been dictated by Teresita Jones, Nurse Practitioner as directed. Dr. Samra MD I have performed a history and physical examination and medical decision making of this patient, discussed the same with the dictator, and agree with the dictators assessment and plan as written, documented as a scribe. Based on total visit time, I have performed more than 50% of this visit. Objective - Vital Signs Vital signs: Vital Signs Temp 97.9 F 07/08/23 08:00 Pulse 61 07/08/23 08:00 Resp 20 07/08/23 08:00 BP 134/62 07/08/23 08:00 Pulse Ox 98 07/08/23 08:00 FiO2 Intake & Output 07/07/23 07/08/23 07/08/23 18:59 06:59 18:59 Intake Total 0 Output Total 75 Balance -75 0 Weight 67.6 kg Intake: Oral 0 Output: Urine 75 Other: Voiding Method Diaper Diaper Diaper # Voids 2 1 # Bowel Movements 1 - Labs CBC & Chem 7: 07/08/23 07:25 07/08/23 07:18 Labs: Abnormal Lab Results - Last 24 Hours (Table) 07/07/23 07/08/23 07/08/23 Range/Units 14:07 00:15 07:18 RBC (3.80-5.40) m/uL Hgb (11.4-16.0) gm/dL Hct (34.0-46.0) % MCHC (31.0-37.0) g/dL Neutrophils # (1.3-7.7) k/uL Lymphocytes # (1.0-4.8) k/uL Chloride 113 H (98-107) mmol/L Carbon Dioxide 21 L (22-30) mmol/L BUN 27 H (7-17) mg/dL Glucose 153 H (74-99) mg/dL Procalcitonin 0.60 H (0.02-0.09) ng/mL Urine Appearance Cloudy H (Clear) Ur Specific [place] >1.050 H (1.001-1.035) Urine Protein 1+ H (Negative) Urine Blood Trace H (Negative) Ur Leukocyte Esterase Small H (Negative) Urine WBC 13 H (0-5) /hpf Ur Squamous Epith Cells 6 H (0-4) /hpf Amorphous Sediment Few H (None) /hpf Urine Bacteria Rare H (None) /hpf Urine Mucus Rare H (None) /hpf 07/08/23 Range/Units 07:25 RBC 3.75 L (3.80-5.40) m/uL Hgb 10.4 L (11.4-16.0) gm/dL Hct 33.7 L (34.0-46.0) % MCHC 30.9 L (31.0-37.0) g/dL Neutrophils # 8.5 H (1.3-7.7) k/uL Lymphocytes # 0.5 L (1.0-4.8) k/uL Chloride (98-107) mmol/L Carbon Dioxide (22-30) mmol/L BUN (7-17) mg/dL Glucose (74-99) mg/dL Procalcitonin (0.02-0.09) ng/mL Urine Appearance (Clear) Ur Specific [place] (1.001-1.035) Urine Protein (Negative) Urine Blood (Negative) Ur Leukocyte Esterase (Negative) Urine WBC (0-5) /hpf Ur Squamous Epith Cells (0-4) /hpf Amorphous Sediment (None) /hpf Urine Bacteria (None) /hpf Urine Mucus (None) /hpf Assessment and Plan Time with Patient: Less than 30
[2023-07-08] MEDS: ACETAMINOPHEN TAB 325 MG TAB PO PRN (16:46)
[2023-07-08] MEDS: METOPROLOL TARTRATE 5 MG/5 ML VIAL IVP PRN (17:02)
[2023-07-08 17:04] LABS: ABG Base Excess -0.3 mmol/L; ABG HCO3 24 mmol/L (21-25); ABG Oxygen Saturation 95.7 % (94-97); ABG PCO2 36 mmHg (35-45); ABG PH 7.43 (7.35-7.45); ABG PO2 84 mmHg (83-108); ABG TCO2 25 mmol/L (19-24); Allen Test Performed? Yes
[2023-07-08] MEDS ORDERED: METOPROLOL TARTRATE 25 MG TAB PO STA (17:54)
[2023-07-08] MEDS: AMIODARONE 450 MG in DEXTROSE 5% IN WATER 250 ML IV SCH ×2 (18:31)
--- NOTE | 2023-07-08 18:42 | P.PN ---
Subjective Progress Note Date: 07/08/23 Patient was seen for a follow-up. Patient continues to be encephalopathic. Patient's sister was present today. She mentions that patient was much better in the morning, and had lucid conversation with her although she was still oriented times to self. However she was not thrashing. Patient's sister has noticed that she does move her right arm above her head, and swings it around her head. She is not using the left arm as much. No other seizure-like activity. Patient's sister denies patient having any history of tobacco use or alcohol use. She does not have any COPD or emphysema. Objective - Vital Signs Vital signs: Vital Signs Temp 97.2 F L 07/08/23 12:00 Pulse 84 07/08/23 15:27 Resp 20 07/08/23 12:00 BP 126/59 07/08/23 12:00 Pulse Ox 96 07/08/23 12:00 FiO2 Intake & Output 07/07/23 07/08/23 07/08/23 18:59 06:59 18:59 Intake Total 0 Output Total 75 Balance -75 0 Weight 67.6 kg Intake: Oral 0 Output: Urine 75 Other: Voiding Method Diaper Diaper Diaper # Voids 2 1 # Bowel Movements 1 - Exam As above. Patient continues to be encephalopathic. Patient's pupils are equal, round and reacting. She has left ptosis, which is somewhat new. Her speech is somewhat slurred, but she does speak sometimes clearly. Patient obviously appears to be breathing without difficulty, very prominently wheezing. Her face is more or less symmetric. Visual villegas appears full on confrontation with no neglect. Tongue protrudes the midline. On muscle strength testing, there is no obvious focal weakness on the left. 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 Her legs are also equal. Sensory touch was equal but she did not cooperate well. She did not cooperate for cerebellar function testing. - Labs CBC & Chem 7: 07/08/23 07:25 07/08/23 07:18 Labs: Abnormal Lab Results - Last 24 Hours (Table) 07/07/23 07/08/23 07/08/23 Range/Units 14:07 00:15 07:18 RBC (3.80-5.40) m/uL Hgb (11.4-16.0) gm/dL Hct (34.0-46.0) % MCHC (31.0-37.0) g/dL Neutrophils # (1.3-7.7) k/uL Lymphocytes # (1.0-4.8) k/uL Chloride 113 H (98-107) mmol/L Carbon Dioxide 21 L (22-30) mmol/L BUN 27 H (7-17) mg/dL Glucose 153 H (74-99) mg/dL Procalcitonin 0.60 H (0.02-0.09) ng/mL Urine Appearance Cloudy H (Clear) Ur Specific [place] >1.050 H (1.001-1.035) Urine Protein 1+ H (Negative) Urine Blood Trace H (Negative) Ur Leukocyte Esterase Small H (Negative) Urine WBC 13 H (0-5) /hpf Ur Squamous Epith Cells 6 H (0-4) /hpf Amorphous Sediment Few H (None) /hpf Urine Bacteria Rare H (None) /hpf Urine Mucus Rare H (None) /hpf 07/08/ Range/Units 07:25 RBC 3.75 L (3.80-5.40) m/uL Hgb 10.4 L (11.4-16.0) gm/dL Hct 33.7 L (34.0-46.0) % MCHC 30.9 L (31.0-37.0) g/dL Neutrophils # 8.5 H (1.3-7.7) k/uL Lymphocytes # 0.5 L (1.0-4.8) k/uL Chloride (98-107) mmol/L Carbon Dioxide (22-30) mmol/L BUN (7-17) mg/dL Glucose (74-99) mg/dL Procalcitonin (0.02-0.09) ng/mL Urine Appearance (Clear) Ur Specific [place] (1.001-1.035) Urine Protein (Negative) Urine Blood (Negative) Ur Leukocyte Esterase (Negative) Urine WBC (0-5) /hpf Ur Squamous Epith Cells (0-4) /hpf Amorphous Sediment (None) /hpf Urine Bacteria (None) /hpf Urine Mucus (None) /hpf Assessment and Plan Assessment: * Altered mental status, likely due to toxic metabolic encephalopathy. Patient continues to be encephalopathic. * Probable TIA, symptoms resolved * New onset atrial fibrillation with RVR * Recurrent paraesophageal hiatal hernia, Adhesions, GERD, status post laparoscopic repair of the paraesophageal hiatal hernia 07/01/2023. * Rule out UTI versus pneumonia. * Hypernatremia, due to dehydration, now resolved * Hypokalemia, resolved * Acute kidney injury, resolved * Hypertension * Hyperlipidemia * Chronic back pain * History of back surgery Plan: * Patient continues to be encephalopathic. She appears to be in some respiratory distress, wheezing. We will check ABG, infectious disease consultation to evaluate for possible infectious source resulting in encephalopathy, rule out pneumonia versus UTI. ? Need for LP but patient is on anticoagulation for A. fib. * Patient on Haldol 1 mg IM every 6 hours when necessary, per IM. * Patient currently on Zosyn. * Also on Seroquel 12.5 mg twice a day when necessary agitation * CT head revealed chronic appearing periventricular white matter ischemic changes. 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 I personally revi ewed CT head, agree with the findings, although appears patient has old lacune's and bilateral basal ganglia. * EEG was abnormal due to background slowing of moderate to severe degree. This is suggestive of generalized cerebral dysfunction as can be seen with toxic metabolic encephalopathy or related to diffuse structural brain abnormality. Clinical correlation is recommended. No epileptiform activity was seen. * CT of abdomen and pelvis revealed right upper lung peripheral groundglass opacities which could represent atypical pneumonia. Small left and trace right pleural effusions. No other definitive evidence for source of infectious process. No evidence of acute infectious process within the abdomen or pelvis. Colonic diverticulosis. * Consider ID for possible pneumonia. * Agree with starting Eliquis 5 mg twice a day for stroke prevention related to atrial fibrillation * Patient's all focal neurological symptoms have resolved. Current NIH stroke scale is 0. 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 No need to repeat MRA/CTA. * 2-D echo revealed grossly normal left-ventricular systolic function with EF 55%. Mild right ventricle dilation. Mild MR, mild biatrial dilation. Sclerotic aortic valve with no stenosis. Left atrial mild dilation. * B12 1816, folate 7.60. We will start folate replacement. TSH normal 0.701. * Medical management of the various conditions as per IM.
[2023-07-08] MEDS: APIXABAN 5 MG TAB PO SCH (20:10)
[2023-07-08] MEDS: ATORVASTATIN 20 MG TAB PO SCH (20:10)
[2023-07-08] MEDS ORDERED: AMIODARONE 200 MG TAB PO SCH (21:00)
[2023-07-09 02:01] LABS: Glucose,Whole Blood 155 mg/dL (70-110)
[2023-07-09] MEDS: IPRATROPIUM-ALBUTEROL 3 ML NEB INHALATION PRN (04:12)
[2023-07-09] MEDS: DEXTROSE 5% IN WATER 1,000 ML IV SCH ×2 (05:58→16:57)
[2023-07-09] MEDS: IPRATROPIUM-ALBUTEROL 3 ML NEB INHALATION SCH ×4 (07:40→21:15)
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
[2023-07-09 08:13] LABS: Basophils % (A) 0 %; Eosinophils # (A) 0.2 k/uL (0-0.7); Eosinophils % (A) 1 %; HCT 31.8 % (34.0-46.0); HGB 9.6 gm/dL (11.4-16.0); Hypochromasia Marked; Lymphocytes # (A) 0.6 k/uL (1.0-4.8); Lymphocytes % (A) 5 %; MCH 26.9 pg (25.0-35.0); MCHC 30.3 g/dL (31.0-37.0); MCV 88.9 fL (80.0-100.0); Mean Platelet Volume 8.2; Monocytes # (A) 0.4 k/uL (0-1.0); Monocytes % (A) 3 %; Neutrophils # (A) 12.4 k/uL (1.3-7.7); Neutrophils % (A) 90 %; Platelet Count 281 k/uL (150-450); RBC 3.58 m/uL (3.80-5.40); RDW 14.9 % (11.5-15.5); WBC 13.8 k/uL (3.8-10.6)
[2023-07-09 08:49] LABS: African American GFR (CKD) 80 (>60 ml/min/1.73 sqM); Anion Gap 7 mmol/L; Blood Urea Nitrogen 20 mg/dL (7-17); Calcium 8.6 mg/dL (8.4-10.2); Carbon Dioxide 26 mmol/L (22-30); Chloride 111 mmol/L (98-107); Glucose 137 mg/dL (74-99); Non-African American GFR(CKD) 69 (>60 ml/min/1.73 sqM); Potassium 3.8 mmol/L (3.5-5.1); Sodium 144 mmol/L (137-145)
[2023-07-09] MEDS: LIDOCAINE 4% PATCH TOPICAL SCH (09:53)
[2023-07-09] MEDS: PIPERACILLIN-TAZOBACTAM 3.375 GM in SODIUM CHLORIDE 0.9% 100 ML IVPB SCH ×3 (09:53→23:19)
[2023-07-09] MEDS: rOPINIRole HCL 4 MG TABLET PO SCH ×3 (09:54→20:43)
[2023-07-09] MEDS: PARoxetine 20 MG TAB PO SCH (09:54)
[2023-07-09] MEDS: METOPROLOL TARTRATE 50 MG TAB PO SCH ×2 (09:54→20:43)
[2023-07-09] MEDS: FOLIC ACID 1 MG TAB PO SCH (09:54)
[2023-07-09] MEDS: APIXABAN 5 MG TAB PO SCH ×2 (09:54→20:43)
--- NOTE | 2023-07-09 11:48 | P.PN ---
Progress Note - Text Progress Note Date: 07/09/23 CHIEF COMPLAINT: Recurrent paraesophageal hiatal hernia HISTORY OF PRESENT ILLNESS: Patient is postop day #8 status post laparoscopic repair of paraesophageal hiatal hernia with mesh, lysis of adhesions and partial gastrectomy. Patient's confusion is slightly better today. She does know her n teresa. Oral intake is poor. She is doing 1 to 1 feeds Denies any abdominal pain. No nausea or vomiting. No bowel movement. Computed tomography scan chest abdomen and pelvis results reported a right upper lung and peripheral groundglass opacity which could represent atypical pneumonia. Small left and trace right pleural effusions. No evidence for acute infectious process within the abdomen or pelvis. Colonic diverticulosis. Postsurgical changes of the spine hardware appear intact. EEG is suggestive of generalized cerebral dysfunction seen with toxic metabolic encephalopathy or related to diffuse structural brain abnormality. Patient followed by neurology. Afebrile. PHYSICAL EXAM: VITAL SIGNS: Reviewed. GENERAL: Well-developed in no acute distress. ABDOMEN: Soft. Nondistended. Nontender. Incision sites clean dry and intact NEUROLOGIC: less confused ASSESSMENT: 1. Recurrent paraesophageal hiatal hernia, Adhesions, GERD 2. A. fib with RVR 3. Altered mental status. Possible toxic Metabolic encephalopathy 4. Possible TIA PLAN: -Continue full liquids with 1 to 1 feeds - Eliquis -Continue to monitor -Continue IV fluids -Continue antibiotics - Dulcolax suppository added
[2023-07-09] MEDS: bisacodyL 10 MG SUPP RECTAL SCH (12:42)
[2023-07-09] MEDS: AMIODARONE 450 MG in DEXTROSE 5% IN WATER 250 ML IV SCH ×2 (13:05)
[2023-07-09] MEDS ORDERED: AMIODARONE 450 MG in DEXTROSE 5% IN WATER 250 ML IV SCH ×2 (13:15)
--- NOTE | 2023-07-09 13:49 | P.PN ---
Subjective Progress Note Date: 07/09/23 Patient is evaluated today sitting up in the chair on medical floor. Heart rate is elevated this morning in the 150s irregular pending EKG and telemetry has also been ordered. Further recommendations pending the EKG. Patient denies any chest pain, no shortness of breath, states she feels anxious. Currently NPO. She is postoperative day #3 paraesophageal hernia repair. Has been receiving D5 1/2 NS at 75 mls/hr. Received a dose of IV lasix around 6am, BNP is elevated at 3460. 07/05/2023 Patient evaluated on the stepdown unit today currently postoperative day #4 paraesophageal hernia repair. Having 10/10 abdominal discomfort per patient however passing gas and having increased bowel sounds. Receiving IV dilaudid for pain management. On IV cardizem at 5 will be transitioned to metoprolol and cleared for anticoagulation by surgery was started on eliquis. Patient had complaints of left sided weakness which strength appears equal on examination. Had brain CT showing degenerative and remote ischemic change with no evidence of acute hemorrhage or mass effect. 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 Neurology was consulted. Chest xray follow up yesterday reveals increasing air underneath the right hemidiaphragm could reflect colonic interposition. Pneumoperitoneum not excluded. Left basilar opacity may reflect atelectasis or pneumonia. Patient was receiving IV fluids which were stopped due to proBNP of over 7000. Received second dose of IV lasix. Labs today showing sodium 147, potassium 2.9. 07/06/2023 Patient is evaluated today on the stepdown unit currently postoperative day #5 paraesophageal hernia repair. Patient today is alert x 3 however confused thrashing around. Not complaining of pain. Has been started on full liquid diet and tolerating did have a large bowel movement. Abdomen soft. Remains on IV zosyn. 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 [place] patient had a TIA. No left sided weakness noted today. Possible left facial droop however difficult to assess due to patient not being able to sit still. Labs today reveal sodium 148, potassium 3.6, BUN 41, creatinine 1.33. TSH normal 0.701. Patient is urinating had a bladder scan today no retention noted. Echocardiogram was a technically difficult study however LV function appears grossly normal at 55%, mild MR and mild biatrial dilation. 07/07/2023 Patients mentation has not much improved nursing reports continued slurred speech patient unable to swallow pills. Neurology following, patient had repeat brain CT showing chronic appearing periventricular white matter ischemic changes. Small old lacunar infarct in the basal ganglion. She is postoperative day #6 paraesophageal hernia repair. Had new onset atrial fibrillation with RVR suspected TIA. Underwent EEG today showing toxic metabolic encephalopathy and moderate to severe background slowing. No epileptiform activity noted. Patient with some scattered wheezing today and chest xray was completed which reveals a left lower lobe infiltrate and or atelectasis. Patient does have IS at bedside has not been using. Will order ST consulation rule out aspiration. Recommend at this time conservative management and avoid narcotics if possible. Patient continues on D5 water at 75 mls/hr and sodium has normalized to 145, potassium 3.3, BUN 46, creatinine 1.13. B12 1816 and folate 7.60. Patient remains afebrile, heart rate of 72, blood pressure 124/71, 96% on 2L of oxygen. 07/08/2023 Patient relates a with family at the bedside. Mentation has improved she is more awake alert and less confused. Currently postoperative day #7 paraesophageal hernia repair. Did require IV amiodarone overnight due to elevated heart rate up into the 150s. Cardiology has transitioned her to oral amiodarone today her heart rate is in the 70-80s. Anticoagulation has been resu med today. Patient remains on D5 water at 75 mls/hr. Also on IV zosyn since post surgical. Procalcitonin is elevated at 0.60. Chest xray showing left lower lobe infiltrate and or atelectasis. Her urinalysis was abnormal small leukocyte esterase, cloudy urine. 07/09/2023 Patient is postoperative day #8 paraesophageal hernia repair. Patient has been transitioned to IV amiodarone at half rate and will continue; with plans to transition to oral amiodarone today. Heart rate has improved for the afib RVR. Surgery has okay the eliquis and she continues on 5 mg BID of eliquis. Patient has tolerated increased diet she is not complaining of much abdominal pain having some hypoactive bowel sounds she has not been able to get out of bed over the last few days due to her altered mentation. Had an abdomen pelvis CT done showing right upper lobe left lung which could represent atypical pneumonia. Sm all left and trace right pleural effusions no other definitive evidence for source of infectious process. There is no evidence for acute infectious process within the abdomen or pelvis. There is colonic diverticulosis. Today she has scattered audible wheezing today. She continues on duonebs QID and scheduled and remains on oxygen support. Family at the bedside updated on plan of care. Review of Systems Constitutional: Denied any fatigue denied any fever. Cardio vascular: Denied any chest pain, palpitations Gastrointestinal: Denied any nausea, vomiting, diarrhea Pulmonary: Denied any shortness of breath cough Neurologic: Denied any new focal deficits All inpatient medications were reviewed and appropriate changes in these medications as dictated in the interval history and assessment and plan. PHYSICAL EXAMINATION: GENERAL: The patient is alert and oriented x2, confused, not in any acute distress. Well developed, well nourished. HEENT: Pupils are round and equally reacting to light. EOMI. No scleral icterus. No conjunctival pallor. Normocephalic, atraumatic. No pharyngeal erythema. No thyromegaly. CARDIOVASCULAR: S1 and S2 present. No murmurs, rubs, or gallops. Tachycardic irregular. PULMONARY: Faint scattered wheezing ABDOMEN: Soft, nontender, nondistended, normoactive bowel sounds. No palpable organomegaly. Post surgical. MUSCULOSKELETAL: No joint swelling or deformity. EXTREMITIES: No cyanosis, clubbing, or pedal edema. NEUROLOGICAL: Gross neurological examination did not reveal any focal deficits however patient is confused. Has some slurred speech. SKIN: No rashes. Assessment -Recurrent paraesophageal hernia postoperative day #8 laproscopic surgical repa ir with mesh remains on IV zosyn postoperatively -New onset atrial fibrillation with RVR treated with IV cardizem and then required IV amiodarone and now on oral amiodarone. -Hypokalemia due to diuresis and NPO diet improved with supplementation -Hypernatremia likely from decreased free water intake, hypovolemic started on Dextrose 5% at 75 mls/hr and sodium has normalized. Will continue D5 at this time patient has minimal oral intake remains confused. -Altered mental status likely acute metabolic encephalopathy from [facility]ANI[facility] and hypernatremia not improved neurology following undergoing work up. Seroquel has been added for acute agitation. -Pt reports left sided weakness neurology consultation patient had brain CT likely due to TIA and symptoms have resolved. On statin therapy. and Now on el iquis 5 mg BID. -Acute kidney injury prerenal due to dehydration will add D5 at 75 mls/hr and repeat labs in AM, No urinary retention noted. Renal function improving will repeat labs in AM -Left sided pleural effusion noted on CT will repeat chest xray and chest US for further evaluation may need pulmonary consultation for possible drainage of the pleural effusion. -Hypertension -Hyperlipidemia -Restless leg syndrome recommending to hold gabapentin at this time due to confusion; will be continued on requip -Gastroesophageal reflux disease -Anxiety/Depression continues on paxil daily and xanax has been added as needed -Chronic back pain with prior lumbar decompression and fusion -Former nicotine use -Hx of TIA GI prophylaxis DVT prophylaxis Full Code Plan Patient transitioned to oral metoprolol heart rate now controlled recommending to continue holding losartan at this time. oral amiodarone added today. Cardiology consultation in place Patient currently on cardiac floor on cardiac telemetry monitoring. Remains on IV zosyn post surgically Discussed diet with general surgery has been upgraded to full liquid diet and encouraged to increase oral water intake Neurology consultation Patient has been started on D5 water at 75 mls/hr which will be continued Eliquis has been resumed. Replace potassium Repeat labs in AM PT/OT consultation The impression and plan of care has been dictated by Teresita Jones, Nurse Practitioner as directed. Dr. Samra MD I have performed a history and physical examination and medical decision making of this patient, discussed the same with the dictator, and agree with the dictators assessment and plan as written, documented as a scribe. Based on total visit time, I have performed more than 50% of this visit. Objective - Vital Signs Vital signs: Vital Signs Temp 98.3 F 07/09/23 04:00 Pulse 62 07/09/23 07:52 Resp 22 07/09/23 04:00 BP 131/59 07/09/23 04:00 Pulse Ox 96 07/09/23 07:40 FiO2 Intake & Output 07/08/23 07/09/23 07/09/23 18:59 06:59 18:59 Weight 67.6 kg Other: Voiding Method Diaper Diaper # Voids 1 2 # Bowel Movements 0 - Labs CBC & Chem 7: 07/09/23 07:02 07/09/23 07:02 Labs: Abnormal Lab Results - Last 24 Hours (Table) 07/08/23 07/09/23 07/09/23 Range/Units 17:00 02:00 07:02 WBC 13.8 H (3.8-10.6) k/uL RBC 3.58 L (3.80-5.40) m/uL Hgb 9.6 L (11.4-16.0) gm/dL Hct 31.8 L (34.0-46.0) % MCHC 30.3 L (31.0-37.0) g/dL Neutrophils # 12.4 H (1.3-7.7) k/uL Lymphocytes # 0.6 L (1.0-4.8) k/uL ABG Total CO2 25 H (19-24) mmol/L Chloride (98-107) mmol/L BUN (7-17) mg/dL Glucose (74-99) mg/dL POC Glucose (mg/dL) 155 H (70-110) mg/dL 07/09/23 Range/Units 07:02 WBC (3.8-10.6) k/uL RBC (3.80-5.40) m/uL Hgb (11.4-16.0) gm/dL Hct (34.0-46.0) % MCHC (31.0-37.0) g/dL Neutrophils # (1.3-7.7) k/uL Lymphocytes # (1.0-4.8) k/uL ABG Total CO2 (19-24) mmol/L Chloride 111 H (98-107) mmol/L BUN 20 H (7-17) mg/dL Glucose 137 H (74-99) mg/dL POC Glucose (mg/dL) (70-110) mg/dL Microbiology - Last 24 Hours (Table) 07/07/23 14:07 Blood Culture - Preliminary Blood Assessment and Plan Time with Patient: Less than 30
--- NOTE | 2023-07-09 13:59 | XR ---
EXAMINATION TYPE: XR chest 2V DATE OF EXAM: 07/09/2023 1:53 PM CLINICAL INDICATION:Female, 82 years old with history of dyspnea; [facility] COMPARISON: Chest radiographs from 07/07/2023 TECHNIQUE: XR chest 2V Frontal and lateral views of the chest. FINDINGS: Lungs/Pleura: There is no evidence of pleural effusion, focal consolidation, or pneumothorax. Pulmonary vascularity: Pulmonary vascular congestion. Heart/mediastinum: Cardiomediastinal silhouette is enlarged and stable. Musculoskeletal: No acute osseous pathology. Other findings: None IMPRESSION: No acute cardiopulmonary disease/process.
--- NOTE | 2023-07-09 14:35 | US ---
EXAMINATION TYPE: US chest DATE OF EXAM: 07/09/2023 Exam done portable COMPARISON: NONE CLINICAL INDICATION: Female, 82 years old with history of pleural effusion; TECHNIQUE: Targeted ultrasound of the posterior lower bilateral hemithoraces EXAM MEASUREMENTS: Right Pleural Effusion pocket size: 2.3 cm Right skin surface to fluid distance: 2.7 cm Left Pleural Effusion pocket size: 8.3 cm Left skin surface to fluid distance: 2.2 cm Lung seen within mid portion of fluid pocket Right side not marked for possible thoracentesis outside the dept. Left side marked for possible thoracentesis outside the dept. Pulmonologists are able to review the images in the patient?s EMR. IMPRESSIONS: 1. Moderate left pleural effusion amenable to thoracentesis. 2. Small right pleural effusion
[2023-07-09] MEDS: AMIODARONE 200 MG TAB PO SCH (14:58)
--- NOTE | 2023-07-09 15:17 | P.PN ---
Subjective Progress Note Date: 07/09/23 HISTORY OF PRESENT ILLNESS: This is a 82-year-old female with a past medical history significant for anxiety, former nicotine dependence, hypertension, hyperlipidemia, and TIA. Patient does not follow with a dairy nutrition specialist. We have been asked to see the patient in consultation for new onset A. fib with RVR. Patient examined at the bedside. Patient is status post laparoscopic repair of paraesophageal hiatal hernia with mesh, lysis of adhesions, and partial gastrectomy. Postop day #4. Yesterday patient developed atrial fibrillation with RVR and was transferred to the cardiac stepdown for closer monitoring. She was started on IV Cardizem. She is still in atrial fibrillation with heart rates between [id number]. The patient is pressure to this morning as she states her pain is not well controlled. She also reports feeling like there is a cup still in her left hand although she is not holding anything. Neuro exam was within normal limits otherwise. * EKG reveals A. fib with RVR * Chest xray increasing air underneath the right hemidiaphragm could reflect colonic interposition. Pneumoperitoneum excluded. Left basilar opacity. * Laboratory data: ProBNP 7370. * Current home cardiac medications include losartan 50 mg in the morning and aspirin 81 mg a day 07/06/2023 Patient examined this morning at the bedside. Patient is confused and thrashing around in the bed at the time of examination. Patient denies chest pain or pressure. She denies shortness of breath. Patient has converted and is maintaining sinus mechanism this morning. She is anticoagulated with Eliquis. CT of the brain completed with no evidence of acute hemorrhage or mass effect. 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 07/08/2023 Cardiology was reconsulted secondary to atrial fibrillation with RVR. Patient examined this morning at the bedside. Patient went into A. fib with RVR overnight. She was given 5 mg of IV push Lopressor. She also was given an amiodarone bolus and started on a drip per protocol. She has since converted to sinus mechanism with PACs. Her mentation continues to be altered although improving. 07/09/2023 She has been in sinus rhythm since yesterday. She still has abdominal pains, has had a BM. No chest pain. PHYSICAL EXAM: VITAL SIGNS: Reviewed. GENERAL: Well-developed in no acute distress. HEENT: Head is normocephalic. Pupils are equal, round. Sclerae anicteric. Mucous membranes of the mouth are moist. Neck supple. No JVD LUNGS: Respirations even and unlabored. Lungs essentially clear to auscultation bilaterally. HEART: Regular rate and rhythm. S1 and S2 heard. ABDOMEN: Soft. Nondistended. Nontender. EXTREMITIES: Normal range of motion. No clubbing or cyanosis. Peripheral pulses intact. No lower extremity edema NEUROLOGIC: Awake and alert. Oriented x 3. ASSESSMENT: Status post laparoscopic repair of paraesophageal hiatal hernia with mesh, lysis of adhesions, and partial gastrectomy New onset paroxysmal atrial fibrillation with RVR, currently maintaining sinus mechanism Sensation of holding a cup in left hand, r/o neuro etiology with hx of TIA, status post CT of the brain which was negative for acute process Hypertension Hyperlipidemia History of TIA Former nicotine dependence Anxiety Acute kidney injury Hypokalemia Hypernatremia Metabolic encephalopathy, improving PLAN: Continue current dose of metoprolol. Continue anticoagulation with Eliquis. Start amiodarone taper: 400 mg twice a day for one week, then decrease to 200 mg twice a day for one week, then decrease to 200 mg daily. Continue telemetry monitoring. Cardiology to sign off. Please call with any questions or concerns. Follow up in office in 1 week. Nurse practitioner note has been reviewed by physician. Signing provider agrees with the documented findings, assessment, and plan of care. Objective - Vital Signs Vital signs: Vital Signs Temp 97.8 F 07/09/23 12:50 Pulse 57 L 07/09/23 12:50 Resp 18 07/09/23 12:50 BP 116/71 07/09/23 12:50 Pulse Ox 94 L 07/09/23 12:50 FiO2 Intake & Output 07/08/23 07/09/23 07/09/23 18:59 06:59 18:59 Intake Total 429 Balance 429 Weight 67.6 kg Intake: Intake, IV Titration 250 Amount Amiodarone 450 mg In 250 Dextrose 5% in Water 250 ml @ 0.5 MG/MIN 16.667 mls/hr IV .Q15H YUMIKO Rx#: [id number] Oral 179 Other: Voiding Method Diaper Diaper Diaper # Voids 1 2 # Bowel Movements 0 - Labs CBC & Chem 7: 07/09/23 07:02 07/09/23 07:02 Labs: Abnormal Lab Results - Last 24 Hours (Table) 07/08/23 07/09/23 07/09/23 Range/Units 17:00 02:00 07:02 WBC 13.8 H (3.8-10.6) k/uL RBC 3.58 L (3.80-5.40) m/uL Hgb 9.6 L (11.4-16.0) gm/dL Hct 31.8 L (34.0-46.0) % MCHC 30.3 L (31.0-37.0) g/dL Neutrophils # 12.4 H (1.3-7.7) k/uL Lymphocytes # 0.6 L (1.0-4.8) k/uL ABG Total CO2 25 H (19-24) mmol/L Chloride (98-107) mmol/L BUN (7-17) mg/dL Glucose (74-99) mg/dL POC Glucose (mg/dL) 155 H (70-110) mg/dL 07/09/23 Range/Units 07:02 WBC (3.8-10.6) k/uL RBC (3.80-5.40) m/uL Hgb (11.4-16.0) gm/dL Hct (34.0-46.0) % MCHC (31.0-37.0) g/dL Neutrophils # (1.3-7.7) k/uL Lymphocytes # (1.0-4.8) k/uL ABG Total CO2 (19-24) mmol/L Chloride 111 H (98-107) mmol/L BUN 20 H (7-17) mg/dL Glucose 137 H (74-99) mg/dL POC Glucose (mg/dL) (70-110) mg/dL Microbiology - Last 24 Hours (Table) 07/07/23 14:07 Blood Culture - Preliminary Blood
[2023-07-09] MEDS: QUEtiapine 25 MG TAB PO PRN (20:43)
[2023-07-09] MEDS: ATORVASTATIN 20 MG TAB PO SCH (20:43)
[2023-07-09] MEDS: ACETAMINOPHEN TAB 325 MG TAB PO PRN (23:19)
--- NOTE | 2023-07-10 07:22 | XR ---
EXAMINATION TYPE: XR chest 1V portable DATE OF EXAM: 07/10/2023 6:40 AM CLINICAL INDICATION:Female, 82 years old with history of SOB; COMPARISON: Chest radiographs from 07/09/2023 TECHNIQUE: XR chest 1V portable Frontal view of the chest. FINDINGS: Lungs/Pleura: There is no evidence of pleural effusion, focal consolidation, or pneumothorax. Pulmonary vascularity: Pulmonary vascular congestion. Heart/mediastinum: Cardiomediastinal silhouette is enlarged and stable. Musculoskeletal: No acute osseous pathology. There is lower spine fixation hardware is present. Other findings: None Lines/Tubes: Nasogastric tube with its distal tip and side-port projecting under the diaphragm. IMPRESSION: Increased haziness the left lung and this exam. Correlation with serum BNP given patient's cardiomega ly is recommended to rule out congestive heart failure.
--- NOTE | 2023-07-10 07:24 | XR ---
EXAMINATION TYPE: XR abdomen 1V DATE OF EXAM: 07/10/2023 6:40 AM CLINICAL INDICATION:Female, 82 years old with history of vomiting and distention; [facility] COMPARISON: Radiograph one day prior TECHNIQUE: One radiographic view of the abdomen was obtained. FINDINGS: Nasogastric tube projecting over the stomach. Fixation hardware in the lower spine. The bow el gas pattern is nonspecific without dilated loops of small or large bowel. There is no evidence for organomegaly or pneumoperitoneum. The osseous structures are intact. No abnormal calcifications ar e present. Fecal material and gas are demonstrated throughout the colon and rectum. IMPRESSION: Nasogastric tube in appropriate position. Gaseous distention of a few small bowel loops in lower abdo men.
[2023-07-10] MEDS: IPRATROPIUM-ALBUTEROL 3 ML NEB INHALATION SCH ×4 (08:14→21:32)
--- NOTE | 2023-07-10 08:18 | P.PN ---
Subjective Progress Note Date: 07/09/23 Patient was seen for a follow-up. Patient is doing much better. Patient's niece was present today. Patient continues to have breathing difficulty. Patient has left pleural effusion, which may need thoracentesis. Patient's mentation appears to have much improved. Telemetry monitoring showing sinus rhythm in the 60-70. No seizure-like activity. Patient's sister denies patient having any history of tobacco use or alcohol use. She does not have any COPD or emphysema. Objective - Vital Signs Vital signs: Vital Signs Temp 97.8 F 07/09/23 12:50 Pulse 62 07/09/23 15:38 Resp 18 07/09/23 12:50 BP 116/71 07/09/23 12:50 Pulse Ox 94 L 07/09/23 12:50 FiO2 Intake & Output 07/08/23 07/09/23 07/09/23 18:59 06:59 18:59 Intake Total 429 Balance 429 Weight 67.6 kg Intake: Intake, IV Titration 250 Amount Amiodarone 450 mg In 250 Dextrose 5% in Water 250 ml @ 0.5 MG/MIN 16.667 mls/hr IV .Q15H [facility] Rx#: [id number] Oral 179 Other: Voiding Method Diaper Diaper Diaper # Voids 1 2 # Bowel Movements 0 - Exam Patient's encephalopathy seems to have much improved. She still is quite short of breath. Patient's pupils are equal, round and reacting. She has left ptosis, which is somewhat new. Her speech is much clearer, and intelligible and understandable. Patient knows it is 07/02/2023. She knows that she lives in [facility]. Patient obviously appears to be breathing without difficulty, very prominently wheezing. Her face is more or less symmetric. Visual villegas appears full on confrontation with no neglect. Tongue protrudes the midline. On muscle strength testing, there is no obvious focal weakness on the left. 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 Her legs are also equal. Sensory touch was equal but she did not cooperate well. No ataxia for [id number] testing. - Labs CBC & Chem 7: 07/09/23 07:02 07/09/23 07:02 Labs: Abnormal Lab Results - Last 24 Hours (Table) 07/08/23 07/09/2307/09/23 Range/Units 17:00 02:00 07:02 WBC 13.8 H (3.8-10.6) k/uL RBC 3.58 L (3.80-5.40) m/uL Hgb 9.6 L (11.4-16.0) gm/dL Hct 31.8 L (34.0-46.0) % MCHC 30.3 L (31.0-37.0) g/dL Neutrophils # 12.4 H (1.3-7.7) k/uL Lymphocytes # 0.6 L (1.0-4.8) k/uL ABG Total CO2 25 H (19-24) mmol/L Chloride (98-107) mmol/L BUN (7-17) mg/dL Glucose (74-99) mg/dL POC Glucose (mg/dL) 155 H (70-110) mg/dL 07/09/23 Range/Units 07:02 WBC (3.8-10.6) k/uL RBC (3.80-5.40) m/uL Hgb (11.4-16.0) gm/dL Hct (34.0-46.0) % MCHC (31.0-37.0) g/dL Neutrophils # (1.3-7.7) k/uL Lymphocytes # (1.0-4.8) k/uL ABG Total CO2 (19-24) mmol/L Chloride 111 H (98-107) mmol/L BUN 20 H (7-17) mg/dL Glucose 137 H (74-99) mg/dL POC Glucose (mg/dL) (70-110) mg/dL Microbiology - Last 24 Hours (Table) 07/07/23 14:07 Blood Culture - Preliminary Blood Assessment and Plan Assessment: * Altered mental status, likely due to toxic metabolic encephalopathy. Patient's encephalopathy today seems to have improved. * Probable TIA, symptoms resolved * New onset atrial fibrillation with RVR * Recurrent paraesophageal hiatal hernia, Adhesions, GERD, status post laparoscopic repair of the paraesophageal hiatal hernia 07/01/2023. * Probable pneumonia * Pleural effusion * Hypernatremia, due to dehydration, now resolved * Hypokalemia, resolved * Acute kidney injury, resolved * Hypertension * Hyperlipidemia * Chronic back pain * History of back surgery Plan: * Patient's encephalopathy seems to have much improved today. She appears to be in some respiratory distress, wheezing. ABG showed normal pH 7.43, pCO2 36, pO2 84 and saturation 95%. * Appreciate ID input. RSV, influenza and hagen virus PCR negative. * Patient currently on Zosyn. * Also on Seroquel 12.5 mg twice a day when necessary agitation * CT head revealed chronic appearing periventricular white matter ischemic changes. 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 I personally reviewed CT head, agree with the findings, although appears patient has old lacune's and bilateral basal ganglia. * EEG was abnormal due to background slowing of moderate to severe degree. This is suggestive of generalized cerebral dysfunction as can be seen with toxic metabolic encephalopathy or related to diffuse structural brain abnormality. Clinical correlation is recommended. No epileptiform activity was seen. * CT of abdomen and pelvis revealed right upper lung peripheral groundglass opacities which could represent atypical pneumonia. Small left and trace right pleural effusions. No other definitive evidence for source of infectious process. No evidence of acute infectious process within the abdomen or pelvis. Colonic diverticulosis. * Agree with starting Eliquis 5 mg twice a day for stroke prevention related to atrial fibrillation * Patient's all focal neurological symptoms have resolved. Current NIH stroke scale is 0. 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 No need to repeat MRA/CTA. * 2-D echo revealed grossly normal left-ventricular systolic function with EF 55%. Mild right ventricle dilation. Mild MR, mild biatrial dilation. Sclerotic aortic valve with no stenosis. Left atrial mild dilation. * B12 1816, folate 7.60. We will start folate replacement. TSH normal 0.701. * Medical management of the various conditions as per IM. * Dr. Kem Duncan Will resume neurology service from Tuesday.
[2023-07-10 08:36] LABS: African American GFR (CKD) >90 (>60 ml/min/1.73 sqM); Anion Gap 9 mmol/L; Blood Urea Nitrogen 14 mg/dL (7-17); Calcium 8.8 mg/dL (8.4-10.2); Carbon Dioxide 21 mmol/L (22-30); Chloride 110 mmol/L (98-107); Glucose 130 mg/dL (74-99); Magnesium 2.1 mg/dL (1.6-2.3); Non-African American GFR(CKD) 89 (>60 ml/min/1.73 sqM); Potassium 3.8 mmol/L (3.5-5.1); Sodium 140 mmol/L (137-145)
[2023-07-10 08:44] LABS: NT-Pro-B-Type Natriuretic Pept 4980 pg/mL
[2023-07-10] MEDS: DEXTROSE 5% IN WATER 1,000 ML IV SCH ×2 (08:53→20:17)
[2023-07-10] MEDS: APIXABAN 5 MG TAB PO SCH ×2 (08:55→20:13)
[2023-07-10 09:02] LABS: Basophils # (A) 0.1 k/uL (0-0.2); Basophils % (A) 0 %; Eosinophils # (A) 0.2 k/uL (0-0.7); Eosinophils % (A) 1 %; HCT 35.6 % (34.0-46.0); Hypochromasia Moderate; Lymphocytes # (A) 0.5 k/uL (1.0-4.8); Lymphocytes % (A) 3 %; MCH 26.7 pg (25.0-35.0); MCHC 30.9 g/dL (31.0-37.0); MCV 86.3 fL (80.0-100.0); Mean Platelet Volume 9.1; Monocytes % (A) 5 %; Neutrophils # (A) 17.1 k/uL (1.3-7.7); Neutrophils % (A) 89 %; Platelet Count 327 k/uL (150-450); RBC 4.12 m/uL (3.80-5.40); RDW 15.1 % (11.5-15.5); WBC 19.1 k/uL (3.8-10.6)
[2023-07-10] MEDS: rOPINIRole HCL 4 MG TABLET PO SCH ×3 (09:49→20:17)
[2023-07-10] MEDS: PARoxetine 20 MG TAB PO SCH (09:49)
[2023-07-10] MEDS: METOPROLOL TARTRATE 50 MG TAB PO SCH ×2 (09:50→20:16)
[2023-07-10] MEDS: PIPERACILLIN-TAZOBACTAM 3.375 GM in SODIUM CHLORIDE 0.9% 100 ML IVPB SCH ×2 (09:50→16:16)
[2023-07-10] MEDS: LIDOCAINE 4% PATCH TOPICAL SCH (09:50)
[2023-07-10] MEDS: AMIODARONE 200 MG TAB PO SCH ×2 (09:50→17:20)
[2023-07-10] MEDS: FOLIC ACID 1 MG TAB PO SCH (09:54)
[2023-07-10] MEDS: bisacodyL 10 MG SUPP RECTAL SCH (09:54)
[2023-07-10] MEDS ORDERED: FUROSEMIDE 10 MG/ML 2 ML VIAL IV ONE (10:00)
[2023-07-10] MEDS: methylPREDNISolone SOD SUCCI 40 MG/ML 1 ML VIAL IV SCH ×2 (10:24→16:17)
--- NOTE | 2023-07-10 11:00 | P.PN ---
Subjective Progress Note Date: 07/10/23 Principal diagnosis: Hiatal hernia Patient has had intermittent periods of confusion. Today she is able to answer questions appropriately. Her sister is present. A nasogastric tube was placed today with large volume of output. Approximate 150 mL. White blood cell count increased today at 19. She is afebrile. No tachycardia. Vague abdominal pain. Objective - Vital Signs Vital signs: Vital Signs Temp 98.7 F 07/10/23 07:50 Pulse 62 07/10/23 08:27 Resp 20 07/10/23 07:50 BP 147/72 07/10/23 07:50 Pulse Ox 97 07/10/23 08:15 FiO2 Intake & Output 07/09/23 07/10/23 07/10/23 18:59 06:59 18:59 Intake Total 456.223 0 Output Total 150 Balance 456.223 -150 0 Intake: IV 10 Invasive Line 6 10 Intake, IV Titration 267.223 Amount Amiodarone 450 mg In 250 Dextrose 5% in Water 250 ml @ 0.5 MG/MIN 16.667 mls/hr IV .Q15H [facility] Rx#: [id number] Amiodarone 450 mg In 17.223 Dextrose 5% in Water 250 ml @ 0.5 MG/MIN 16.667 mls/hr IV .Q15H [facility] Rx#: [id number] Oral 179 0 Output: Urine 150 Other: Voiding Method Diaper Diaper # Voids 1 # Bowel Movements 1 - Exam Abdomen: Soft, mild distention, mild upper abdominal tenderness, no rebound or guarding, incisions clean and dry - Labs CBC & Chem 7: 07/10/23 07:39 07/10/23 07:39 Labs: Abnormal Lab Results - Last 24 Hours (Table) 07/10/23 07/10/23 Range/Units 07:39 07:39 WBC 19.1 H (3.8-10.6) k/uL Hgb 11.0 L (11.4-16.0) gm/dL MCHC 30.9 L (31.0-37.0) g/dL Neutrophils # 17.1 H (1.3-7.7) k/uL Lymphocytes # 0.5 L (1.0-4.8) k/uL Chloride 110 H (98-107) mmol/L Carbon Dioxide 21 L (22-30) mmol/L Glucose 130 H (74-99) mg/dL Microbiology - Last 24 Hours (Table) 07/07/23 14:07 Blood Culture - Preliminary Blood Assessment and Plan (1) Hiatal hernia Narrative/Plan: 82-year-old female with recurrent hiatal hernia. Patient had evidence of gastric distention and nasogastric tube was placed. Suspect some gastroparesis from the recent surgery. White blood cell count has increased. Recent CAT scan show no definite perforation. Agree with plans for thoracentesis by pulmonary. Continue antibiotics. Follow cultures. Consider repeat shorter-term CT chest and abdomen if leukocytosis persists. Current Visit: Yes Status: Acute Code(s): K44.9 - DIAPHRAGMATIC HERNIA WITHOUT OBSTRUCTION OR GANGRENE SNOMED Code(s): 49751637
[2023-07-10] MEDS: BUDESONIDE 1 MG/2 ML NEBU INHALATION SCH ×2 (11:14→21:32)
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
--- NOTE | 2023-07-10 13:35 | P.PN ---
Subjective Progress Note Date: 07/10/23 Patient is evaluated today sitting up in the chair on medical floor. Heart rate is elevated this morning in the 150s irregular pending EKG and telemetry has also been ordered. Further recommendations pending the EKG. Patient denies any chest pain, no shortness of breath, states she feels anxious. Currently NPO. She is postoperative day #3 paraesophageal hernia repair. Has been receiving D5 1/2 NS at 75 mls/hr. Received a dose of IV lasix around 6am, BNP is elevated at 3460. 07/05/2023 Patient evaluated on the stepdown unit today currently postoperative day #4 paraesophageal hernia repair. Having 10/10 abdominal discomfort per patient however passing gas and having increased bowel sounds. Receiving IV dilaudid for pain management. On IV cardizem at 5 will be transitioned to metoprolol and cleared for anticoagulation by surgery was started on eliquis. Patient had complaints of left sided weakness which strength appears equal on examination. Had brain CT showing degenerative and remote ischemic change with no evidence of acute hemorrhage or mass effect. 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 Neurology was consulted. Chest xray follow up yesterday reveals increasing air underneath the right hemidiaphragm could reflect colonic interposition. Pneumoperitoneum not excluded. Left basilar opacity may reflect atelectasis or pneumonia. Patient was receiving IV fluids which were stopped due to proBNP of over 7000. Received second dose of IV lasix. Labs today showing sodium 147, potassium 2.9. 07/06/2023 Patient is evaluated today on the stepdown unit currently postoperative day #5 paraesophageal hernia repair. Patient today is alert x 3 however confused thrashing around. Not complaining of pain. Has been started on full liquid diet and tolerating did have a large bowel movement. Abdomen soft. Remains on IV zosyn. 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 [place] patient had a TIA. No left sided weakness noted today. Possible left facial droop however difficult to assess due to patient not being able to sit still. Labs today reveal sodium 148, potassium 3.6, BUN 41, creatinine 1.33. TSH normal 0.701. Patient is urinating had a bladder scan today no retention noted. Echocardiogram was a technically difficult study however LV function appears grossly normal at 55%, mild MR and mild biatrial dilation. 07/07/2023 Patients mentation has not much improved nursing reports continued slurred speech patient unable to swallow pills. Neurology following, patient had repeat brain CT showing chronic appearing periventricular white matter ischemic changes. Small old lacunar infarct in the basal ganglion. She is postoperative day #6 paraesophageal hernia repair. Had new onset atrial fibrillation with RVR suspected TIA. Underwent EEG today showing toxic metabolic encephalopathy and moderate to severe background slowing. No epileptiform activity noted. Patient with some scattered wheezing today and chest xray was completed which reveals a left lower lobe infiltrate and or atelectasis. Patient does have IS at bedside has not been using. Will order ST consulation rule out aspiration. Recommend at this time conservative management and avoid narcotics if possible. Patient continues on D5 water at 75 mls/hr and sodium has normalized to 145, potassium 3.3, BUN 46, creatinine 1.13. B12 1816 and folate 7.60. Patient remains afebrile, heart rate of 72, blood pressure 124/71, 96% on 2L of oxygen. 07/08/2023 Patient relates a with family at the bedside. Mentation has improved she is more awake alert and less confused. Currently postoperative day #7 paraesophageal hernia repair. Did require IV amiodarone overnight due to elevated heart rate up into the 150s. Cardiology has transitioned her to oral amiodarone today her heart rate is in the 70-80s. Anticoagulation has been resu med today. Patient remains on D5 water at 75 mls/hr. Also on IV zosyn since post surgical. Procalcitonin is elevated at 0.60. Chest xray showing left lower lobe infiltrate and or atelectasis. Her urinalysis was abnormal small leukocyte esterase, cloudy urine. 07/09/2023 Patient is postoperative day #8 paraesophageal hernia repair. Patient has been transitioned to IV amiodarone at half rate and will continue; with plans to transition to oral amiodarone today. Heart rate has improved for the afib RVR. Surgery has okay the eliquis and she continues on 5 mg BID of eliquis. Patient has tolerated increased diet she is not complaining of much abdominal pain having some hypoactive bowel sounds she has not been able to get out of bed over the last few days due to her altered mentation. Had an abdomen pelvis CT done showing right upper lobe left lung which could represent atypical pneumonia. Sm all left and trace right pleural effusions no other definitive evidence for source of infectious process. There is no evidence for acute infectious process within the abdomen or pelvis. There is colonic diverticulosis. Today she has scattered audible wheezing today. She continues on duonebs QID and scheduled and remains on oxygen support. Family at the bedside updated on plan of care. 07/10/2023 Patient is postoperative day #9 paraesophageal hernia repair. Patient's bowel sounds were hypoactive yesterday and did vomit is morning per nursing the vomit was brown in color. She had an NG tube placed abdominal x-ray was done which shows stable placement of NG tube. Additionally she remains on nasal cannula oxygen support with scattered wheezing. She did not tolerate prior diuresis and went in to acute kidney injury and for this reason she has been maintained on IV fluids. Her proBNP is still elevated at 4980. Patient had a follow-up chest x- ray showing increased haziness in the left lung correlate with serum BNP given the patient's cardiomyopathy related to rule out congestive heart failure. There is pulmonary vascular congestion. There is no evidence of pleural effusion focal consolidation or pneumothorax. We did do a chest ultrasound yesterday which does reveal a 8.3 cm left pleural effusion. Pulmonary was consulted for further evaluation and given patient a dose of IV Lasix today. Eliquis is now being held for a possible thoracentesis. Patient does have worsening white count 19.1 today, hemoglobin stable at 11.0, sodium 140, potassium 3.8, BUN of 14, creatinine 0.55. Viral panel is negative for influenza RSV and Covid. Review of Systems Constitutional: Denied any fatigue denied any fever. Cardio vascular: Denied any chest pain, palpitations Gastrointestinal: Denied any nausea, vomiting, diarrhea Pulmonary: Denied any shortness of breath cough Neurologic: Denied any new focal deficits Reports weakness All inpatient medications were reviewed and appropriate changes in these medications as dictated in the interval history and assessment and plan. PHYSICAL EXAMINATION: GENERAL: The patient is alert and oriented x2, confused, not in any acute dis tress. Well developed, well nourished. HEENT: Pupils are round and equally reacting to light. EOMI. No scleral icterus. No conjunctival pallor. Normocephalic, atraumatic. No pharyngeal erythema. No t hyromegaly. CARDIOVASCULAR: S1 and S2 present. No murmurs, rubs, or gallops. Tachycardic irregular. PULMONARY: Faint scattered wheezing ABDOMEN: Soft, nontender, nondistended, normoactive bowel sounds. No palpable organomegaly. Post surgical. MUSCULOSKELETAL: No joint swelling or deformity. EXTREMITIES: No cyanosis, clubbing, or pedal edema. NEUROLOGICAL: Gross neurological examination did not reveal any focal deficits however patient is confused. Has some slurred speech. Diffuse weakness. SKIN: No rashes. Assessment -Recurrent paraesophageal hernia postoperative day #9 laproscopic surgical repair with mesh remains on IV zosyn postoperatively -New onset atrial fibrillation with RVR treated with IV cardizem and then required IV amiodarone and now on oral amiodarone. -Hypokalemia due to diuresis and NPO diet improved with supplementation -Hypernatremia likely from decreased free water intake, hypovolemic started on Dextrose 5% at 75 mls/hr and sodium has normalized. Will continue D5 at this time patient has minimal oral intake remains confused. -Altered mental status likely acute metabolic encephalopathy from [facility] and hypernatremia not improved neurology following undergoing work up. Seroquel has been added for acute agitation. -Pt reports left sided weakness neurology consultation patient had brain CT likely due to TIA and symptoms have resolved. On statin therapy. and Now on eliquis 5 mg BID. -Acute kidney injury prerenal due to dehydration will add D5 at 75 mls/hr and repeat labs in AM, No urinary retention noted. Renal function improving will repeat labs in AM -Left sided pleural effusion noted on CT will repeat chest xray and chest US for further evaluation may need pulmonary consultation for possible drainage of the pleural effusion. given a dose of IV lasix today, eliquis being held and chest xray will be repeated in the AM. -Leukocytosis worsening -Hypertension -Hyperlipidemia -Restless leg syndrome recommending to hold gabapentin at this time due to confusion; will be continued on requip -Gastroesophageal reflux disease -Anxiety/Depression continues on paxil daily and xanax has been added as needed -Chronic back pain with prior lumbar decompression and fusion -Former nicotine use -Hx of TIA GI prophylaxis DVT prophylaxis Full Code Plan Patient transitioned to oral metoprolol heart rate now controlled recommending to continue holding losartan at this time. oral amiodarone added. Cardiology consultation in place Patient currently on cardiac floor on cardiac telemetry monitoring. Remains on IV zosyn post surgically Neurology consultation Pulmonary has been consulted. Patient given a dose of IV lasix today for the pleural effusion and would recommend to hold IV fluids and chest xray will be repeated in the AM. Eliquis has been resumed however placed on hold for possible thoracentesis. Repeat labs in AM PT/OT consultation The impression and plan of care has been dictated by Teresita Jones, Nurse Practitioner as directed. Dr. Samra MD I have performed a history and physical examination and medical decision making of this patient, discussed the same with the dictator, and agree with the dictators assessment and plan as written, documented as a scribe. Based on total visit time, I have performed more than 50% of this visit. Objective - Vital Signs Vital signs: Vital Signs Temp 98.7 F 07/10/23 07:50 Pulse 62 07/10/23 08:27 Resp 20 07/10/23 07:50 BP 147/72 07/10/23 07:50 Pulse Ox 97 07/10/23 08:15 FiO2 Intake & Output 07/09/23 07/10/23 07/10/23 18:59 06:59 18:59 Intake Total 456.223 0 Output Total 150 Balance 456.223 -150 0 Intake: IV 10 Invasive Line 6 10 Intake, IV Titration 267.223 Amount Amiodarone 450 mg In 250 Dextrose 5% in Water 250 ml @ 0.5 MG/MIN 16.667 mls/hr IV .Q15H [facility] Rx#: [id number] Amiodarone 450 mg In 17.223 Dextrose 5% in Water 250 ml @ 0.5 MG/MIN 16.667 mls/hr IV .Q15H [facility] Rx#: [id number] Oral 179 0 Output: Urine 150 Other: Voiding Method Diaper Diaper # Voids 1 # Bowel Movements 1 - Labs CBC & Chem 7: 07/10/23 07:39 07/10/23 07:39 Labs: Abnormal Lab Results - Last 24 Hours (Table) 07/10/23 Range/Units 07:39 Chloride 110 H (98-107) mmol/L Carbon Dioxide 21 L (22-30) mmol/L Glucose 130 H (74-99) mg/dL Microbiology - Last 24 Hours (Table) 12/14/23 14:07 Blood Culture - Preliminary Blood Assessment and Plan Time with Patient: Less than 30
--- NOTE | 2023-07-10 14:54 | P.PN ---
Subjective Progress Note Date: 07/10/23 Patient was seen for a follow-up. Patient apparently vomited a lot yesterday. An NG tube was placed. Biliary gastric secretions are being collected. Neurologically, patient is doing much better. Patient's daughter was present today, who agreed that patient is much better. Patient continues to have b reathing difficulty, although better than yesterday. Her mentation has much improved. Patient has left pleural effusion, which may need thoracentesis. Telemetry monitoring showing sinus rhythm in the 60-70. Patient's sister denies patient having any history of tobacco use or alcohol use. She does not have any COPD or emphysema. Objective - Vital Signs Vital signs: Vital Signs Temp 97.3 F L 07/10/23 11:48 Pulse 68 07/10/23 11:48 Resp 22 07/10/23 11:48 BP 150/67 07/10/23 11:48 Pulse Ox 96 07/10/23 11:48 FiO2 Intake & Output 07/09/23 07/10/23 07/10/23 18:59 06:59 18:59 Intake Total 456.223 0 Output Total 150 Balance 456.223 -150 0 Intake: IV 10 Invasive Line 6 10 Intake, IV Titration 267.223 Amount Amiodarone 450 mg In 250 Dextrose 5% in Water 250 ml @ 0.5 MG/MIN 16.667 mls/hr IV .Q15H [facility] Rx#: [id number] Amiodarone 450 mg In 17.223 Dextrose 5% in Water 250 ml @ 0.5 MG/MIN 16.667 mls/hr IV .Q15H [facility] Rx#: [id number] Oral 179 0 Output: Urine 150 Other: Voiding Method Diaper Diaper Diaper # Voids 1 # Bowel Movements 1 - Exam Patient's encephalopathy seems to have much improved. She still is quite short of breath. Patient's pupils are equal, round and reacting. The ptosis has resolved. Her speech is much clearer, and intelligible and understandable. Patient knows it is 06/2023. She knows that she is in [facility]. She knows that she lives in [facility]. Patient's breathing appears slightly better. Her face is more or less symmetric. Visual villegas appears full on confrontation with no neglect. Tongue protrudes the midline. On muscle strength testing, there is no obvious focal weakness on the left. Her cook jelly, biceps, triceps and deltoid are fairly normal and equal bilaterally. Her legs are also equal. Sensory touch was equal but she did not cooperate well. No ataxia for [id number] testing. - Labs CBC & Chem 7: 07/10/23 07:39 07/10/23 07:39 Labs: Abnormal Lab Results - Last 24 Hours (Table) 07/10/23 07/10/23 Range/Units 07:39 07:39 WBC 19.1 H (3.8-10.6) k/uL Hgb 11.0 L (11.4-16.0) gm/dL MCHC 30.9 L (31.0-37.0) g/dL Neutrophils # 17.1 H (1.3-7.7) k/uL Lymphocytes # 0.5 L (1.0-4.8) k/uL Chloride 110 H (98-107) mmol/L Carbon Dioxide 21 L (22-30) mmol/L Glucose 130 H (74-99) mg/dL Microbiology - Last 24 Hours (Table) 07/07/23 14:07 Blood Culture - Preliminary Blood Assessment and Plan Assessment: * Altered mental status, likely due to toxic metabolic encephalopathy. Patient's encephalopathy today seems to have significantly improved. * Probable TIA, symptoms resolved * New onset atrial fibrillation with RVR * Recurrent paraesophageal hiatal hernia, Adhesions, GERD, status post laparoscopic repair of the paraesophageal hiatal hernia 07/01/2023. * Probable pneumonia * Pleural effusion, probably cardiogenic in nature. * Hypernatremia, due to dehydration, now resolved * Hypokalemia, resolved * Acute kidney injury, resolved * Hypertension * Hyperlipidemia * Chronic back pain * History of back surgery Plan: * Patient's encephalopathy seems to have much improved today. * Pulmonary medicine on board for breathing difficulty and pleural effusion, possibly undergoing thoracentesis in the morning. * Appreciate ID input. RSV, influenza and hagen virus PCR negative. * Patient currently on Zosyn. * Also on Seroquel 12.5 mg twice a day when necessary for agitation * CT head revealed chronic appearing periventricular white matter ischemic changes. 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 I personally reviewed CT head, agree with the findings, although appears patient has old lacune's and bilateral basal ganglia. * Carotid Doppler 11/02/2021 revealed no evidence of hemodynamically significant stenosis, with antegrade flow in both vertebral arteries. * EEG was abnormal due to background slowing of moderate to severe degree. This is suggestive of generalized cerebral dysfunction as can be seen with toxic metabolic encephalopathy or related to diffuse structural brain abnormality. Clinical correlation is recommended. No epileptiform activity was seen. * CT of abdomen and pelvis revealed right upper lung peripheral groundglass opacities which could represent atypical pneumonia. Small left and trace right pleural effusions. No other definitive evidence for source of in fectious process. No evidence of acute infectious process within the abdomen or pelvis. Colonic diverticulosis. * Agree with starting Eliquis 5 mg twice a day for stroke prevention related to atrial fibrillation * Patient's all focal neurological symptoms have resolved. Current NIH stroke scale is 0. 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 No need to repeat MRA/CTA. * 2-D echo revealed grossly normal left-ventricular systolic function with EF 55%. Mild right ventricle dilation. Mild MR, mild biatrial dilation. Sclerotic aortic valve with no stenosis. Left atrial mild dilation. * B12 1816, folate 7.60. We will start folate replacement. TSH normal 0.701. * Medical management of the various conditions as per IM. * Dr. Kem Duncan Will resume neurology service from morning.
--- NOTE | 2023-07-10 16:18 | P.PN ---
Subjective Progress Note Date: 07/09/23 Principal diagnosis: Reason for follow-up is abnormal CT chest concerning for possible pneumonia Patient is a 82-year-old female with a past medical history living with CVA TIA reflux hyperlipidemia hypertension patient was electively admitted to the hospital on 07/01/2023 in this patient with recurrent paraesophageal hiatal hernia patient is status post laparoscopic repair of the paraesophageal hiatal hernia with absorbable mesh lysis of adhesion and partial gastrectomy, patient did have a postoperative A. fib with RVR problem with her mentation requiring CT of the abdominal pelvis, did have some lung parenchymal groundglass opacity from previous infectious disease consultation On today's evaluation that is 07/09/2023, the patient is afebrile the patient is slightly more awake and alert, the patient breathing comfortably on 2 L nasal cannula oxygen. Denies having any chest pain occasional cough no vomiting or diarrhea has been reported Patient white count of 13.8, creatinine 0.81 Objective - Vital Signs Vital signs: Vital Signs Temp 97.9 F 07/09/23 09:49 Pulse 62 07/09/23 11:24 Resp 22 07/09/23 09:49 BP 123/69 07/09/23 09:49 Pulse Ox 97 07/09/23 09:49 FiO2 Intake & Output 07/08/23 07/09/23 07/09/23 18:59 06:59 18:59 Intake Total 429 Balance 429 Weight 67.6 kg Intake: Intake, IV Titration 250 Amount Amiodarone 450 mg In 250 Dextrose 5% in Water 250 ml @ 0.5 MG/MIN 16.667 mls/hr IV .[facility] Rx#: [id number] Oral 179 Other: Voiding Method Diaper Diaper Diaper # Voids 1 2 # Bowel Movements 0 - Exam GENERAL DESCRIPTION: An elderly female lying in bed in no distress RESPIRATORY SYSTEM: Unlabored breathing , diminished breath sounds HEART: S1 S2 regular rate and rhythm , ABDOMEN: Soft , no tenderness EXTREMITIES: No edema feet - Labs CBC & Chem 7: 07/10/23 07:39 07/10/23 07:39 Labs: Abnormal Lab Results - Last 24 Hours (Table) 07/08/23 07/09/23 07/09/23 Range/Units 17:00 02:00 07:02 WBC 13.8 H (3.8-10.6) k/uL RBC 3.58 L (3.80-5.40) m/uL Hgb 9.6 L (11.4-16.0) gm/dL Hct 31.8 L (34.0-46.0) % MCHC 30.3 L (31.0-37.0) g/dL Neutrophils # 12.4 H (1.3-7.7) k/uL Lymphocytes # 0.6 L (1.0-4.8) k/uL ABG Total CO2 25 H (19-24) mmol/L Chloride (98-107) mmol/L BUN (7-17) mg/dL Glucose (74-99) mg/dL POC Glucose (mg/dL) 155 H (70-110) mg/dL 07/09/23 Range/Units 07:02 WBC (3.8-10.6) k/uL RBC (3.80-5.40) m/uL Hgb (11.4-16.0) gm/dL Hct (34.0-46.0) % MCHC (31.0-37.0) g/dL Neutrophils # (1.3-7.7) k/uL Lymphocytes # (1.0-4.8) k/uL ABG Total CO2 (19-24) mmol/L Chloride 111 H (98-107) mmol/L BUN 20 H (7-17) mg/dL Glucose 137 H (74-99) mg/dL POC Glucose (mg/dL) (70-110) mg/dL Microbiology - Last 24 Hours (Table) 07/07/23 14:07 Blood Culture - Preliminary Blood Assessment and Plan (1) Abnormal CT of the chest Current Visit: Yes Status: Acute Code(s): R93.89 - ABNORMAL FINDINGS ON DX IMAGING OF OTH BODY STRUCTURES SNOMED Code(s): 50434713468879924 (2) Pneumonia Current Visit: Yes Status: Acute Code(s): J18.9 - PNEUMONIA, UNSPECIFIED ORGANISM SNOMED Code(s): 009416900 (3) Leukocytosis Current Visit: Yes Status: Acute Code(s): D72.829 - ELEVATED WHITE BLOOD CELL COUNT, UNSPECIFIED SNOMED Code(s): 650892479 Plan: 1patient with abnormal CT of the chest with evidence of some groundglass opacities to the upper lobes in this patient who was electively admitted to the hospital for paraesophageal hernia s/p repair with abdominal mesh laparoscopically and partial gastrectomy patient did not have any fever during this hospital stay no elevated white count and main symptom remains to be mental status changes 2-we are currently waiting for influenza and COVID PCR and urine for Legionella antigen 3-patient to continue with empiric Zosyn at this point while waiting for the workup to be completed Daughter at the bedside multiple questions concerned were answered Dictation was produced using [employer] dictation software. please excuse any grammatical, word or spelling errors. Time with Patient: Less than 30
--- NOTE | 2023-07-10 16:20 | P.PN ---
Subjective Progress Note Date: 07/10/23 Principal diagnosis: Reason for follow-up is abnormal CT chest concerning for possible pneumonia Patient is a 82-year-old female with a past medical history living with CVA TIA reflux hyperlipidemia hypertension patient was electively admitted to the hospital on 07/01/2023 in this patient with recurrent paraesophageal hiatal hernia patient is status post laparoscopic repair of the paraesophageal hiatal hernia with absorbable mesh lysis of adhesion and partial gastrectomy, patient did have a postoperative A. fib with RVR problem with her mentation requiring CT of the abdominal pelvis, did have some lung parenchymal groundglass opacity from previous infectious disease consultation On today's evaluation that is 07/10/2023, the patient denies having any fever or any chills, the patient is breathing comfortably on 3 L nasal cannula oxygen, the patient denies having any chest pain did have occasional cough but no sputum production, patient denies nausea vomiting or any diarrhea, and no abdominal pain Patient white count slightly up to 19.1, creatinine 0.55 influenza RSV covid and urine for legionella antigen negative Objective - Vital Signs Vital signs: Vital Signs Temp 97.3 F L 07/10/23 11:48 Pulse 68 07/10/23 11:48 Resp 22 07/10/23 11:48 BP 150/67 07/10/23 11:48 Pulse Ox 96 07/10/23 11:48 FiO2 Intake & Output 07/09/23 07/10/23 07/10/23 18:59 06:59 18:59 Intake Total 456.223 0 Output Total 150 Balance 456.223 -150 0 Intake: IV 10 Invasive Line 6 10 Intake, IV Titration 267.223 Amount Amiodarone 450 mg In 250 Dextrose 5% in Water 250 ml @ 0.5 MG/MIN 16.667 mls/hr IV .Q15H [facility] Rx#: [id number] Amiodarone 450 mg In 17.223 Dextrose 5% in Water 250 ml @ 0.5 MG/MIN 16.667 mls/hr IV .Q15H [facility] Rx#: [id number] Oral 179 0 Output: Urine 150 Other: Voiding Method Diaper Diaper Diaper # Voids 1 # Bowel Movements 1 - Exam GENERAL DESCRIPTION: An elderly female lying in bed in no distress RESPIRATORY SYSTEM: Unlabored breathing , diminished breath sounds HEART: S1 S2 regular rate and rhythm , ABDOMEN: Soft , no tenderness EXTREMITIES: No edema feet - Labs CBC & Chem 7: 07/10/23 07:39 07/10/23 07:39 Labs: Abnormal Lab Results - Last 24 Hours (Table) 07/10/23 07/10/23 Range/Units 07:39 07:39 WBC 19.1 H (3.8-10.6) k/uL Hgb 11.0 L (11.4-16.0) gm/dL MCHC 30.9 L (31.0-37.0) g/dL Neutrophils # 17.1 H (1.3-7.7) k/uL Lymphocytes # 0.5 L (1.0-4.8) k/uL Chloride 110 H (98-107) mmol/L Carbon Dioxide 21 L (22-30) mmol/L Glucose 130 H (74-99) mg/dL Microbiology - Last 24 Hours (Table) 07/07/23 14:07 Blood Culture - Preliminary Blood Assessment and Plan (1) Abnormal CT of the chest Current Visit: Yes Status: Acute Code(s): R93.89 - ABNORMAL FINDINGS ON DX IMAGING OF OTH BODY STRUCTURES SNOMED Code(s): 16136500474162018 (2) Leukocytosis Current Visit: Yes Status: Acute Code(s): D72.829 - ELEVATED WHITE BLOOD CELL COUNT, UNSPECIFIED SNOMED Code(s): 987923131 (3) Pneumonia Current Visit: Yes Status: Acute Code(s): J18.9 - PNEUMONIA, UNSPECIFIED ORGANISM SNOMED Code(s): 749294706 Plan: 1patient with abnormal CT of the chest with evidence of some groundglass opacities to the upper lobes in this patient who was electively admitted to the hospital for paraesophageal hernia s/p repair with abdominal mesh laparoscopically and partial gastrectomy patient did not have any fever during this hospital stay no elevated white count and main symptom remains to be mental status changes 2-patient did have a negative influenza and COVID PCR and urine for Legionella antigen 3-patient seemed to have show some clinical improvement and will continue with empiric Zosyn while waiting for the cultures to finalize 4-slight worsening of the white count and questionable steroid related and will be monitored closely Daughter at the bedside multiple questions concerned were answered Dictation was produced using [employer] software. please excuse any grammatical, word or spelling errors. Time with Patient: Less than 30
[2023-07-10] MEDS: ACETAMINOPHEN TAB 325 MG TAB PO PRN (17:20)
[2023-07-10] MEDS: ATORVASTATIN 20 MG TAB PO SCH (20:16)
[2023-07-10] MEDS: QUEtiapine 25 MG TAB PO PRN (20:16)
[2023-07-10] MEDS: ONDANSETRON 4 MG/2 ML VIAL IVP PRN (20:52)
[2023-07-10] MEDS: METOPROLOL TARTRATE 5 MG/5 ML VIAL IVP PRN (22:26)
[2023-07-10] MEDS ORDERED: LORazepam 2 MG/ML INJ IV STA (22:44)
[2023-07-10] MEDS ORDERED: METOPROLOL TARTRATE 50 MG TAB PO STA (22:45)
[2023-07-10] MEDS: PANTOPRAZOLE 40 MG/10 ML VIAL IVP SCH (22:54)
[2023-07-10 23:31] LABS: Glucose,Whole Blood 142 mg/dL (70-110)
[2023-07-10] MEDS ORDERED: MORPHINE SULFATE 2 MG/ML SYRINGE IVP STA (23:43)
[2023-07-11 00:01] LABS: Glucose,Whole Blood 145 mg/dL (70-110)
[2023-07-11] MEDS: HYDROmorphone 0.5 MG/0.5 ML SYRINGE IVP PRN ×2 (00:21→17:24)
[2023-07-11 00:56] LABS: HCT 35.6 % (34.0-46.0); HGB 11.1 gm/dL (11.4-16.0); Hypochromasia Moderate; MCH 27.2 pg (25.0-35.0); MCHC 31.1 g/dL (31.0-37.0); MCV 87.3 fL (80.0-100.0); Mean Platelet Volume 8.1; Platelet Count 388 k/uL (150-450); RBC 4.07 m/uL (3.80-5.40); WBC 15.4 k/uL (3.8-10.6)
[2023-07-11 01:10] LABS: ALT 47 U/L (4-34); AST 26 U/L (14-36); African American GFR (CKD) >90 (>60 ml/min/1.73 sqM); Albumin 2.2 g/dL (3.5-5.0); Alkaline Phosphatase 214 U/L (38-126); Anion Gap 10 mmol/L; Blood Urea Nitrogen 18 mg/dL (7-17); Calcium 8.3 mg/dL (8.4-10.2); Carbon Dioxide 25 mmol/L (22-30); Chloride 108 mmol/L (98-107); Glucose 155 mg/dL (74-99); Non-African American GFR(CKD) 82 (>60 ml/min/1.73 sqM); Potassium 3.8 mmol/L (3.5-5.1); Sodium 143 mmol/L (137-145); Total Bilirubin 0.8 mg/dL (0.2-1.3); Total Protein 4.8 g/dL (6.3-8.2)
[2023-07-11] MEDS: PIPERACILLIN-TAZOBACTAM 3.375 GM in SODIUM CHLORIDE 0.9% 100 ML IVPB SCH ×3 (01:13→16:41)
[2023-07-11] MEDS: methylPREDNISolone SOD SUCCI 40 MG/ML 1 ML VIAL IV SCH ×3 (01:14→17:25)
[2023-07-11] MEDS ORDERED: FUROSEMIDE 10 MG/ML 4 ML VIAL IV STA (01:40)
--- NOTE | 2023-07-11 03:50 | CT ---
EXAM: CT Abdomen and Pelvis With Intravenous Contrast CLINICAL HISTORY: ITS.REASON CT Reason: severe abdominal pain and abdominal distention TECHNIQUE: Axial computed tomography images of the abdomen and pelvis with intravenous contrast. CTDI is 26.8 mGy and DLP is 1348.1 mGy-cm. This CT exam was performed using one or more of the following dose reduction techniques: automated exposure control, adjustment of the mA and/or kV according to patient size, and/or use of iterative reconstruction technique. COMPARISON: 07/07/2023 FINDINGS: Lung bases: See below. Pleural space: Moderate left and tiny right pleural effusions with associated atelectasis. ABDOMEN: Liver: Unremarkable. No mass. Gallbladder and bile ducts: Gallbladder has been removed. No ductal dilation. Pancreas: Unremarkable. No mass. No ductal dilation. Spleen: Unremarkable. No splenomegaly. Adrenals: Unremarkable. No mass. Kidneys and ureters: Unremarkable. No solid mass. No hydronephrosis. Stomach and bowel: Left inguinal hernia with colon protruding into the hernia sac without evidence of obstruction. Postsurgical changes around the GE junction. Interval development of a fluid collection posterior to the stomach measuring 4 cm AP by 9.4 cm transverse. Severe sigmoid diverticulosis without evidence of diverticulitis. PELVIS: Appendix: No findings to suggest acute appendicitis. Bladder: Unremarkable. No mass. Reproductive: Unremarkable as visualized. ABDOMEN and PELVIS: Intraperitoneal space: Mild ascites. Bones/joints: No acute fracture. No dislocation. Soft tissues: There is a spigelian hernia within the right lower quadrant with ascitic fluid tracking into the defect. Vasculature: Unremarkable. No abdominal aortic aneurysm. Lymph nodes: Unremarkable. No enlarged lymph nodes. IMPRESSION: 1. Interval development of a fluid collection posterior to the stomach measuring 4 cm AP by 9.4 cm transverse. 2. Moderate left and tiny right pleural effusions with associated atelectasis.
--- NOTE | 2023-07-11 03:52 | XR ---
EXAM: XR Chest, 1 View CLINICAL HISTORY: ITS.REASON XR Reason: dyspnea TECHNIQUE: Frontal view of the chest. COMPARISON: No relevant prior studies available. FINDINGS: Lungs: Vascular congestion. No consolidation. Pleural space: Moderate to large left pleural effusion. Heart: Unremarkable. No cardiomegaly. Mediastinum: Unremarkable. Normal mediastinal contour. Bones/joints: No acute osseous abnormalities. Tubes, lines and devices: Nasogastric tube in position with tip coursing off the film. IMPRESSION: Moderate to large left pleural effusion.
[2023-07-11 03:57] LABS: Basophils % (A) 0 %; Eosinophils % (A) 0 %; HCT 35.4 % (34.0-46.0); Hypochromasia Moderate; Lymphocytes # (A) 0.5 k/uL (1.0-4.8); Lymphocytes % (A) 4 %; MCH 27.1 pg (25.0-35.0); MCHC 31.1 g/dL (31.0-37.0); MCV 87.2 fL (80.0-100.0); Mean Platelet Volume 8.3; Monocytes # (A) 0.4 k/uL (0-1.0); Monocytes % (A) 3 %; Neutrophils # (A) 11.8 k/uL (1.3-7.7); Neutrophils % (A) 91 %; Platelet Count 401 k/uL (150-450); RBC 4.06 m/uL (3.80-5.40); RDW 14.7 % (11.5-15.5)
[2023-07-11 04:17] LABS: African American GFR (CKD) 81 (>60 ml/min/1.73 sqM); Anion Gap 7 mmol/L; Blood Urea Nitrogen 20 mg/dL (7-17); Calcium 8.2 mg/dL (8.4-10.2); Carbon Dioxide 26 mmol/L (22-30); Chloride 108 mmol/L (98-107); Glucose 147 mg/dL (74-99); Non-African American GFR(CKD) 70 (>60 ml/min/1.73 sqM); Potassium 3.8 mmol/L (3.5-5.1); Sodium 141 mmol/L (137-145)
[2023-07-11] MEDS: POTASSIUM CHLORIDE 10 MEQ in WATER FOR INJECTION 1 100ML.BAG IVPB SCH ×2 (05:36→06:48)
[2023-07-11] MEDS: AMIODARONE 200 MG TAB PO SCH (06:05)
[2023-07-11] MEDS: IPRATROPIUM-ALBUTEROL 3 ML NEB INHALATION SCH ×4 (07:29→19:42)
[2023-07-11] MEDS: BUDESONIDE 1 MG/2 ML NEBU INHALATION SCH ×2 (07:29→19:42)
[2023-07-11 07:41] LABS: ABG Base Excess 2.4 mmol/L; ABG HCO3 27 mmol/L (21-25); ABG Oxygen Saturation 93.2 % (94-97); ABG PCO2 44 mmHg (35-45); ABG PO2 69 mmHg (83-108); ABG TCO2 29 mmol/L (19-24); Allen Test Performed? Yes
[2023-07-11] MEDS ORDERED: FORMOTEROL FUMARATE 20 MCG/2 ML NEBU INHALATION SCH (08:00)
--- NOTE | 2023-07-11 08:21 | XR ---
EXAMINATION TYPE: XR chest 1V portable DATE OF EXAM: 07/11/2023 COMPARISON: 07/11/2023 INDICATION: CHF TECHNIQUE: Single frontal view of the chest is obtained. FINDINGS: The heart size is enlarged. The pulmonary vasculature is normal. Increasing pneumothorax on the left. Moderate left pleural effusion is present. IMPRESSION: 1. Left pneumothorax. 2. Left lower lobe infiltrate. Correlate for CHF Moderate left pleural effusion is cardiomegaly. 3. Left pleural effusion
[2023-07-11] MEDS: APIXABAN 5 MG TAB PO SCH (08:29)
[2023-07-11] MEDS: PANTOPRAZOLE 40 MG/10 ML VIAL IVP SCH ×2 (08:59→20:44)
[2023-07-11] MEDS: LIDOCAINE 4% PATCH TOPICAL SCH (09:01)
[2023-07-11] MEDS: FOLIC ACID 1 MG TAB PO SCH (10:45)
[2023-07-11] MEDS: bisacodyL 10 MG SUPP RECTAL SCH (10:45)
--- NOTE | 2023-07-11 11:14 | P.PN ---
Subjective Progress Note Date: 07/11/23 Principal diagnosis: Respiratory failure. This is an 82-year-old female with history of multiple medical problems including hypertension, CVA, dyslipidemia, iron deficiency anemia, depression and generalized anxiety disorder, patient was also noted to have recurrent paraesophageal hiatal hernia. On 07/01/2023, patient was admitted by Dr. Kendrick for elective laparoscopic repair of paraesophageal hernia with absorbable mesh. Procedure was done on 07/01/2023, and the patient was managed medically by internal medicine after the surgery. Since her admission till now, patient has been seen by many consultants including internal medicine, cardiology, general surgery, neurology, infectious disease, all along the patient was noted to have a small left pleural effusion, which was noted to be present 2 days after her surgery, and this pleural effusion was not present back in December of 2022 based on an old chest x-ray clearly this pleural effusion is considered relatively new and developed shortly after her surgery. Echocardiogram on this patient showed good ejection fraction, she had mild pulmonary hypertension, and she had moderate tricuspid regurgitation and sclerotic aortic valve was noted but no stenosis. On this admission the patient developed new onset paroxysmal atrial fibrillation, hence the patient was given metoprolol, and she was also placed on eliquis. Amiodarone was added. And intermittently the patient has been receiving Lasix for presumptive congestive heart failure. Ultrasound of the chest on 07/09 showed moderate left pleural effusion and small right pleural effusion, left side is amenable for thoracentesis. However the patient has been on eliquis all along, and I am recommending that we hold the eliquis today, and possibly consider thoracentesis in the next 24 hours. In the meantime patient will be given a dose of diuretics, I believe most likely the fluid is cardiogenic in nature unless proven otherwise. Again this fluid was not present prior to her admission. Not to mention during my examination the patient, she had diffuse rhonchi and wheezes bilaterally, she does have a nasogastric tube in place, and she definitely needs to be placed on bronchodilators to optimize her pulmonary status. Patient seems to have large nasogastric output today. Chest x-ray this morning showed congestive changes with left-sided pleural effusion. Possibility of congestive heart failure is very likely considering the chest x-ray appearan ce. BNP level today is almost 5000. Progress note dated 07/11/2023. 82-year-old female seen yesterday in consultation by my partner. The patient was admitted back on July 01, for an elective repair of a hiatal hernia. The patient's surgery took place on July 01. The patient was brought to the intensive care unit, on July 10, for atrial fibrillation with RVR, and low blood pressure. The patient is seen today in room 259. The patient's currently on Zosyn. The patient's on a liter high flow oxygen, and has an NG tube in place. The patient's getting 0.9 at KVO. A computed tomography scan of the abdomen and pelvis, apparently has revealed a fluid collection, in the abdomen. The surgery is considering exploratory laparotomy. In addition, because of new onset atrial fibrillation, the patient will have Dopplers of lower extremities. White count 13, hemoglobin 11, platelet count normal. D-dimer was 9. Blood gases show pO2 of 69, pCO2 45, and a pH of 7.4. This was on 35% oxygen. Sodium 141, potassium 3.8, chlorides 108, CO2 26, BUN 20, creatinine 0.8. Troponins were 0.096 and 0.144. Albumin was 2.2. Blood cultures are negative. Chest x- ray reveals a left lower lobe infiltrate with a left pleural effusion, and a possible left-sided pneumothorax. CT of the abdomen shows a interval development of a fluid collection, posterior to the stomach, measuring 4 cm x 9.4 cm. Objective - Vital Signs Vital signs: Vital Signs Temp 97.9 F 07/11/23 04:00 Pulse 61 07/11/23 08:01 Resp 21 07/11/23 07:00 BP 111/56 07/11/23 07:00 Pulse Ox 94 L 07/11/23 07:00 FiO2 Intake & Output 07/10/23 07/11/23 07/11/23 18:59 06:59 18:59 Intake Total 0 160 90 Output Total 0 400 0 Balance 0 -240 90 Intake: IV 160 90 Piperacillin-Tazobactam 3 100 50 .375 gm In Sodium Chloride 0.9% 100 ml @ 25 mls/hr IVPB Q8HR [facility] Rx# :[id number] kvo 60 40 Oral 0 Output: Gastric Drainage 0 Urine 400 0 Other: Voiding Method Diaper External Catheter # Voids 1 - Exam Patient looks acutely ill, NG tube in place, currently on 8 L high flow oxygen. She is arousable. HEENT examination is grossly unremarkable. Mucous membranes are moist. No oral lesions. NG tube in place. Neck supple. Full range of motion. No adenopathy thyromegaly or neck vein distention. Cardiovascular examination reveals regular rhythm rate. S1-S2 normal. No S3 or S4. No discernible murmur noted. Heart sounds are distant. Heart rate 61 bpm. Lungs reveal scattered rhonchi. No wheezes or crackles. Breath sounds equal. Abdomen soft without bowel sounds. Extremities are intact. No cyanosis clubbing or edema. Skin is without rash or lesion. Neurologic examination is brief but nonfocal. - Labs CBC & Chem 7: 07/11/23 03:40 07/11/23 03:40 Labs: Abnormal Lab Results - Last 24 Hours (Table) 07/10/23 07/10/23 07/11/23 Range/Units 23:28 23:58 00:22 WBC 15.4 H (3.8-10.6) k/uL Hgb 11.1 L (11.4-16.0) gm/dL Neutrophils # (1.3-7.7) k/uL Lymphocytes # (1.0-4.8) k/uL D-Dimer (<0.60) mg/L FEU ABG pO2 (83-108) mmHg ABG HCO3 (21-25) mmol/L ABG Total CO2 (19-24) mmol/L ABG O2 Saturation (94-97) % Chloride (98-107) mmol/L BUN (7-17) mg/dL Glucose (74-99) mg/dL POC Glucose (mg/dL) 142 H 145 H (70-110) mg/dL Calcium (8.4-10.2) mg/dL ALT (4-34) U/L Alkaline Phosphatase (38-126) U/L Troponin I (0.000-0.034) ng/mL Total Protein (6.3-8.2) g/dL Albumin (3.5-5.0) g/dL 07/11/23 07/11/23 07/11/23 Range/Units 00:22 00:22 00:22 WBC (3.8-10.6) k/uL Hgb (11.4-16.0) gm/dL Neutrophils # (1.3-7.7) k/uL Lymphocytes # (1.0-4.8) k/uL D-Dimer 9.00 H (<0.60) mg/L FEU ABG pO2 (83-108) mmHg ABG HCO3 (21-25) mmol/L ABG Total CO2 (19-24) mmol/L ABG O2 Saturation (94-97) % Chloride 108 H (98-107) mmol/L BUN 18 H (7-17) mg/dL Glucose 155 H (74-99) mg/dL POC Glucose (mg/dL) (70-110) mg/dL Calcium 8.3 L (8.4-10.2) mg/dL ALT 47 H (4-34) U/L Alkaline Phosphatase 214 H (38-126) U/L Troponin I 0.096 H* (0.000-0.034) ng/mL Total Protein 4.8 L (6.3-8.2) g/dL Albumin 2.2 L (3.5-5.0) g/dL 07/11/23 07/11/23 07/11/23 Range/Units 03:40 03:40 06:07 WBC 13.0 H (3.8-10.6) k/uL Hgb 11.0 L (11.4-16.0) gm/dL Neutrophils # 11.8 H (1.3-7.7) k/uL Lymphocytes # 0.5 L (1.0-4.8) k/uL D-Dimer (<0.60) mg/L FEU ABG pO2 (83-108) mmHg ABG HCO3 (21-25) mmol/L ABG Total CO2 (19-24) mmol/L ABG O2 Saturation (94-97) % Chloride 108 H (98-107) mmol/L BUN 20 H (7-17) mg/dL Glucose 147 H (74-99) mg/dL POC Glucose (mg/dL) (70-110) mg/dL Calcium 8.2 L (8.4-10.2) mg/dL ALT (4-34) U/L Alkaline Phosphatase (38-126) U/L Troponin I 0.144 H* (0.000-0.034) ng/mL Total Protein (6.3-8.2) g/dL Albumin (3.5-5.0) g/dL 07/11/23 Range/Units 07:39 WBC (3.8-10.6) k/uL Hgb (11.4-16.0) gm/dL Neutrophils # (1.3-7.7) k/uL Lymphocytes # (1.0-4.8) k/uL D-Dimer (<0.60) mg/L FEU ABG pO2 69 L (83-108) mmHg ABG HCO3 27 H (21-25) mmol/L ABG Total CO2 29 H (19-24) mmol/L ABG O2 Saturation 93.2 L (94-97) % Chloride (98-107) mmol/L BUN (7-17) mg/dL Glucose (74-99) mg/dL POC Glucose (mg/dL) (70-110) mg/dL Calcium (8.4-10.2) mg/dL ALT (4-34) U/L Alkaline Phosphatase (38-126) U/L Troponin I (0.000-0.034) ng/mL Total Protein (6.3-8.2) g/dL Albumin (3.5-5.0) g/dL Microbiology - Last 24 Hours (Table) 07/07/23 14:07 Blood Culture - Preliminary Blood Assessment and Plan Assessment: Postop day #10, status post repair of her recurrent paraesophageal hernia. Intra-abdominal fluid collection, rule out abscess. COPD, acutely active. Mental status changes, secondary to metabolic encephalopathy. Acute kidney injury. Benign essential hypertension. Paroxysmal atrial fibrillation, with rapid ventricular response. Generalized anxiety disorder. GERD with esophagitis. Restless leg syndrome. Chronic back pain. Previous tobacco use. Plan: Plan dated 07/11/2023. The patient is acutely. She remains in the intensive care unit. The patient's on 8 L of oxygen, high flow. She does have a left-sided pleural effusion, and may have a left-sided pneumothorax. I did speak to the surgeon, was planning on doing exploratory laparotomy, evaluated the fluid collection, posterior to the stomach. The patient will likely come back to the intensive care unit, on the mechanical ventilator. Additional recommendations and suggestions are forthcoming. Labs, x-rays, medications are reviewed. X-rays are negative. She remains on Zosyn. Follow make recommendations along the way. Prognosis is guar ded. Time with Patient: Greater than 30
--- NOTE | 2023-07-11 11:38 | US ---
EXAMINATION TYPE: US venous doppler duplex LE BI DATE OF EXAM: 07/11/2023 10:14 AM COMPARISON: NONE CLINICAL INDICATION: Female, 82 years old with history of Hypoxemia; Portable ICU patient. No rednes s. SIDE PERFORMED: Bilateral TECHNIQUE: The lower extremity deep venous system is examined utilizing real time linear array sonog remy with graded compression, doppler sonography and color-flow sonography. VESSELS IMAGED: Common Femoral Vein Deep Femoral Vein Greater Saphenous Vein * Femoral Vein Popliteal Vein Small Saphenous Vein * Proximal Calf Veins (* superficial vessels) Right Leg: Negative for DVT Left Leg: Negative for DVT IMPRESSION: 1. Bilateral lower extremity ultrasound negative for deep venous thrombosis.
[2023-07-11] MEDS: DILTIAZEM 125 MG in SODIUM CHLORIDE 0.9% 100 ML IV SCH (12:06)
--- NOTE | 2023-07-11 13:07 | P.PN ---
Subjective Progress Note Date: 07/11/23 Principal diagnosis: Hiatal hernia Patient was seen earlier this morning around 7 AM. I was contacted during the night that the patient was transferred to the ICU because of hypoxia confusion and abdominal pain. A CAT scan apparently was performed and I was called by the nursing staff after the CAT scan was obtained. A new fluid collection posterior to the stomach was identified. The films have since been reviewed. The patient has increased left pleural effusion now with increasing air in the left pleural cavity. The patient has possibly some air adjacent to the proximal stomach. It is difficult to visualize with certainty because of the indwelling nasogastric tube and staple line in that area. A fluid collection in the retrogastric region is noted. There is no air or contrast within that. The patient has been having pain in the left chest and left upper quadrant. Has had some marginal blood pressures. Coelho catheter was placed this morning in the ICU. Case was discussed with the patient's daughter, Dr. Duncan on more than one occasion, and thoracic surgery. Objective - Vital Signs Vital signs: Vital Signs Temp 97 F L 07/11/23 07:30 Pulse 70 07/11/23 11:49 Resp 24 07/11/23 11:00 BP 108/54 07/11/23 11:00 Pulse Ox 94 L 07/11/23 11:00 FiO2 Intake & Output 07/10/23 07/11/23 07/11/23 18:59 06:59 18:59 Intake Total 0 160 125 Output Total 0 400 300 Balance 0 -240 -175 Intake: IV 160 125 Piperacillin-Tazobactam 3 100 75 .375 gm In Sodium Chloride 0.9% 100 ml @ 25 mls/hr IVPB Q8HR [facility] Rx# :[id number] kvo 60 50 Oral 0 Output: Gastric Drainage 0 Urine 400 300 Other: Voiding Method Diaper External Catheter Indwelling Catheter # Voids 1 - Exam Abdomen: Soft, mild distention, left upper quadrant and epigastric tenderness present - Labs CBC & Chem 7: 07/11/23 03:40 07/11/23 03:40 Labs: Abnormal Lab Results - Last 24 Hours (Table) 07/10/23 07/10/23 07/11/23 Range/Units 23:28 23:58 00:22 WBC 15.4 H (3.8-10.6) k/uL Hgb 11.1 L (11.4-16.0) gm/dL Neutrophils # (1.3-7.7) k/uL Lymphocytes # (1.0-4.8) k/uL D-Dimer (<0.60) mg/L FEU ABG pO2 (83-108) mmHg ABG HCO3 (21-25) mmol/L ABG Total CO2 (19-24) mmol/L ABG O2 Saturation (94-97) % Chloride (98-107) mmol/L BUN (7-17) mg/dL Glucose (74-99) mg/dL POC Glucose (mg/dL) 142 H 145 H (70-110) mg/dL Calcium (8.4-10.2) mg/dL ALT (4-34) U/L Alkaline Phosphatase (38-126) U/L Troponin I (0.000-0.034) ng/mL Total Protein (6.3-8.2) g/dL Albumin (3.5-5.0) g/dL 07/11/23 07/11/23 07/11/23 Range/Units 00:22 00:22 00:22 WBC (3.8-10.6) k/uL Hgb (11.4-16.0) gm/dL Neutrophils # (1.3-7.7) k/uL Lymphocytes # (1.0-4.8) k/uL D-Dimer 9.00 H (<0.60) mg/L FEU ABG pO2 (83-108) mmHg ABG HCO3 (21-25) mmol/L ABG Total CO2 (19-24) mmol/L ABG O2 Saturation (94-97) % Chloride 108 H (98-107) mmol/L BUN 18 H (7-17) mg/dL Glucose 155 H (74-99) mg/dL POC Glucose (mg/dL) (70-110) mg/dL Calcium 8.3 L (8.4-10.2) mg/dL ALT 47 H (4-34) U/L Alkaline Phosphatase 214 H (38-126) U/L Troponin I 0.096 H* (0.000-0.034) ng/mL Total Protein 4.8 L (6.3-8.2) g/dL Albumin 2.2 L (3.5-5.0) g/dL 07/11/23 07/11/23 07/11/23 Range/Units 03:40 03:40 06:07 WBC 13.0 H (3.8-10.6) k/uL Hgb 11.0 L (11.4-16.0) gm/dL Neutrophils # 11.8 H (1.3-7.7) k/uL Lymphocytes # 0.5 L (1.0-4.8) k/uL D-Dimer (<0.60) mg/L FEU ABG pO2 (83-108) mmHg ABG HCO3 (21-25) mmol/L ABG Total CO2 (19-24) mmol/L ABG O2 Saturation (94-97) % Chloride 108 H (98-107) mmol/L BUN 20 H (7-17) mg/dL Glucose 147 H (74-99) mg/dL POC Glucose (mg/dL) (70-110) mg/dL Calcium 8.2 L (8.4-10.2) mg/dL ALT (4-34) U/L Alkaline Phosphatase (38-126) U/L Troponin I 0.144 H* (0.000-0.034) ng/mL Total Protein (6.3-8.2) g/dL Albumin (3.5-5.0) g/dL 07/11/23 Range/Units 07:39 WBC (3.8-10.6) k/uL Hgb (11.4-16.0) gm/dL Neutrophils # (1.3-7.7) k/uL Lymphocytes # (1.0-4.8) k/uL D-Dimer (<0.60) mg/L FEU ABG pO2 69 L (83-108) mmHg ABG HCO3 27 H (21-25) mmol/L ABG Total CO2 29 H (19-24) mmol/L ABG O2 Saturation 93.2 L (94-97) % Chloride (98-107) mmol/L BUN (7-17) mg/dL Glucose (74-99) mg/dL POC Glucose (mg/dL) (70-110) mg/dL Calcium (8.4-10.2) mg/dL ALT (4-34) U/L Alkaline Phosphatase (38-126) U/L Troponin I (0.000-0.034) ng/mL Total Protein (6.3-8.2) g/dL Albumin (3.5-5.0) g/dL Microbiology - Last 24 Hours (Table) 07/07/23 14:07 Blood Culture - Preliminary Blood Assessment and Plan (1) Hiatal hernia Narrative/Plan: 82-year-old female with increasing pain after recent laparoscopic repair of recurrent hiatal hernia with partial gastrectomy. Clinically patient has deteriorated since yesterday. CAT scan certainly raising the likelihood of that from the recent partial gastrectomy portion of the procedure. Clinical scenario with the patient's daughter who apparently just landed from [place] and is driving here this morning. Case discussed with pulmonary and thoracic surgery as well. Offered transfer to tertiary care center however given the patient's degree of discomfort and the CAT scan findings with favor initial exploration here and deemed necessary postoperatively. We'll proceed with exploratory laparotomy. Thoracic surgery plans to place a left-sided chest tube after anesthesia is initiated before the laparotomy. Risks of bleeding, infection, persistent, abscess, splenic injury, pulmonary respiratory failure, reviewed. Patient and her family wish to proceed. Current Visit: Yes Status: Acute Code(s): K44.9 - DIAPHRAGMATIC HERNIA WITHOUT OBSTRUCTION OR GANGRENE SNOMED Code(s): 96381510
[2023-07-11] MEDS ORDERED: fentaNYL (PF) 50 MCG/ML 2 ML AMP ONE (13:12)
[2023-07-11] MEDS ORDERED: KETAMINE HCL IN 0.9 % NACL 50 MG/5 ML SYRINGE ONE (13:12)
[2023-07-11] MEDS ORDERED: SUCCINYLCHOLINE CHLORIDE 200 MG/10 ML VIAL IV ONE (13:12)
[2023-07-11] MEDS ORDERED: SODIUM CHLORIDE 0.9% 100 ML BAG ONE (13:12)
[2023-07-11] MEDS ORDERED: ceFAZolin 1,000 MG VIAL ONE (13:12)
[2023-07-11] MEDS ORDERED: LIDOCAINE 1% INJ 10MG/ML (20 ML MDV) ONE (13:12)
[2023-07-11] MEDS ORDERED: ETOMIDATE 2 MG/ML 10 ML VIAL ONE (13:12)
[2023-07-11] MEDS ORDERED: ROCURONIUM 10 MG/ML (5 ML VIAL) IV ONE (13:12)
[2023-07-11] MEDS ORDERED: ePHEDrine 50 MG/ML 1 ML VIAL ONE (13:12)
[2023-07-11] MEDS ORDERED: LACTATED RINGERS 1,000 ML IV ONE ×2 (13:17→15:33)
--- NOTE | 2023-07-11 13:51 | P.PN ---
Subjective Progress Note Date: 07/11/23 I'm seeing the patient for the first time during this admission. Please refer to Dr. Sharma's note for further details. Since the patient has altered mental status likely due to toxic metabolic encephalopathy and is seems her mentation is improving. Patient's sisters at bedside and she agrees her mentation is improving. Objective - Vital Signs Vital signs: Vital Signs Temp 97 F L 07/11/23 07:30 Pulse 70 07/11/23 11:49 Resp 24 07/11/23 11:00 BP 108/54 07/11/23 11:00 Pulse Ox 94 L 07/11/23 11:00 FiO2 Intake & Output 07/10/23 07/11/23 07/11/23 18:59 06:59 18:59 Intake Total 0 160 155 Output Total 0 400 400 Balance 0 -240 -245 Weight 67.6 kg Intake: IV 160 150 Piperacillin-Tazobactam 3 100 100 .375 gm In Sodium Chloride 0.9% 100 ml @ 25 mls/hr IVPB Q8HR [facility] Rx# :[id number] kvo 60 50 Intake, IV Titration 5 Amount Diltiazem 125 mg In 5 Sodium Chloride 0.9% 100 ml @ 5 MG/HR 5 mls/hr IV .Q24H [facility] Rx#:[id number] Oral 0 Output: Gastric Drainage 0 Urine 400 400 Other: Voiding Method Diaper External Catheter Indwelling Catheter # Voids 1 - Exam General: This the patient is lying in bed and does not appear in acute distress Neuro-the patient is drowsy but is awakened multiple voice. She's oriented to self, she is able to state the year and correctly stated she is in the hospital. As hypophonic. This follows simple commands. No facial weakness. Motor: Lifting bilateral upper and lower above gravity is seems U Lloyd. Unable to assess individual muscle strength. - Labs CBC & Chem 7: 07/11/23 03:40 07/11/23 03:40 Labs: Abnormal Lab Results - Last 24 Hours (Table) 07/10/23 07/10/23 07/11/23 Range/Units 23:28 23:58 00:22 WBC 15.4 H (3.8-10.6) k/uL Hgb 11.1 L (11.4-16.0) gm/dL Neutrophils # (1.3-7.7) k/uL Lymphocytes # (1.0-4.8) k/uL D-Dimer (<0.60) mg/L FEU ABG pO2 (83-108) mmHg ABG HCO3 (21-25) mmol/L ABG Total CO2 (19-24) mmol/L ABG O2 Saturation (94-97) % Chloride (98-107) mmol/L BUN (7-17) mg/dL Glucose (74-99) mg/dL POC Glucose (mg/dL) 142 H 145 H (70-110) mg/dL Calcium (8.4-10.2) mg/dL ALT (4-34) U/L Alkaline Phosphatase (38-126) U/L Troponin I (0.000-0.034) ng/mL Total Protein (6.3-8.2) g/dL Albumin (3.5-5.0) g/dL 07/11/23 07/11/23 07/11/23 Range/Units 00:22 00:22 00:22 WBC (3.8-10.6) k/uL Hgb (11.4-16.0) gm/dL Neutrophils # (1.3-7.7) k/uL Lymphocytes # (1.0-4.8) k/uL D-Dimer 9.00 H (<0.60) mg/L FEU ABG pO2 (83-108) mmHg ABG HCO3 (21-25) mmol/L ABG Total CO2 (19-24) mmol/L ABG O2 Saturation (94-97) % Chloride 108 H (98-107) mmol/L BUN 18 H (7-17) mg/dL Glucose 155 H (74-99) mg/dL POC Glucose (mg/dL) (70-110) mg/dL Calcium 8.3 L (8.4-10.2) mg/dL ALT 47 H (4-34) U/L Alkaline Phosphatase 214 H (38-126) U/L Troponin I 0.096 H* (0.000-0.034) ng/mL Total Protein 4.8 L (6.3-8.2) g/dL Albumin 2.2 L (3.5-5.0) g/dL 12/18/23 12/18/23 12/18/23 Range/Units 03:40 03:40 06:07 WBC 13.0 H (3.8-10.6) k/uL Hgb 11.0 L (11.4-16.0) gm/dL Neutrophils # 11.8 H (1.3-7.7) k/uL Lymphocytes # 0.5 L (1.0-4.8) k/uL D-Dimer (<0.60) mg/L FEU ABG pO2 (83-108) mmHg ABG HCO3 (21-25) mmol/L ABG Total CO2 (19-24) mmol/L ABG O2 Saturation (94-97) % Chloride 108 H (98-107) mmol/L BUN 20 H (7-17) mg/dL Glucose 147 H (74-99) mg/dL POC Glucose (mg/dL) (70-110) mg/dL Calcium 8.2 L (8.4-10.2) mg/dL ALT (4-34) U/L Alkaline Phosphatase (38-126) U/L Troponin I 0.144 H* (0.000-0.034) ng/mL Total Protein (6.3-8.2) g/dL Albumin (3.5-5.0) g/dL 07/11/23 Range/Units 07:39 WBC (3.8-10.6) k/uL Hgb (11.4-16.0) gm/dL Neutrophils # (1.3-7.7) k/uL Lymphocytes # (1.0-4.8) k/uL D-Dimer (<0.60) mg/L FEU ABG pO2 69 L (83-108) mmHg ABG HCO3 27 H (21-25) mmol/L ABG Total CO2 29 H (19-24) mmol/L ABG O2 Saturation 93.2 L (94-97) % Chloride (98-107) mmol/L BUN (7-17) mg/dL Glucose (74-99) mg/dL POC Glucose (mg/dL) (70-110) mg/dL Calcium (8.4-10.2) mg/dL ALT (4-34) U/L Alkaline Phosphatase (38-126) U/L Troponin I (0.000-0.034) ng/mL Total Protein (6.3-8.2) g/dL Albumin (3.5-5.0) g/dL Microbiology - Last 24 Hours (Table) 07/07/23 14:07 Blood Culture - Preliminary Blood Assessment and Plan Assessment: * Altered mental status, likely due to toxic metabolic encephalopathy--mentation improving * There is suspicious for TIA, symptoms resolved * New onset atrial fibrillation with RVR * Recurrent paraesophageal hiatal hernia, Adhesions, GERD, status post laparoscopic repair of the paraesophageal hiatal hernia 07/01/2023. * Probable pneumonia * Pleural effusion, probably cardiogenic in nature. * Hypernatremia, due to dehydration, now resolved * Hypokalemia, resolved * Acute kidney injury, resolved * Hypertension * Hyperlipidemia * Chronic back pain * History of back surgery Plan: * Pulmonary medicine on board for breathing difficulty and pleural effusion. * Appreciate ID input. RSV, influenza and hagen virus PCR negative. * Also on Seroquel 12.5 mg twice a day when necessary for agitation * CT head revealed chronic appearing periventricular white matter ischemic changes. 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 I personally reviewed CT head, agree with the findings, although appears patient has old lacune's and bilateral basal ganglia. * Carotid Doppler 11/02/2021 revealed no evidence of hemodynamically significant stenosis, with antegrade flow in both vertebral arteries. * EEG was abnormal due to background slowing of moderate to severe degree. This is suggestive of generalized cerebral dysfunction as can be seen with toxic metabolic encephalopathy or related to diffuse structural brain abnormality. Clinical correlation is recommended. No epileptiform activity was seen. * CT of abdomen and pelvis revealed right upper lung peripheral groundglass opacities which could represent atypical pneumonia. Small left and trace right pleural effusions. No other definitive evidence for source of infectious process. No evidence of acute infectious process within the abdomen or pelvis. Colonic diverticulosis. * On Eliquis 5 mg twice a day for stroke prevention related to atrial fibrillation * Patient's all focal neurological symptoms have resolved. Current NIH stroke scale is 0. 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 No need to repeat MRA/CTA. * 2-D echo revealed grossly normal left-ventricular systolic function with EF 55%. Mild right ventricle dilation. Mild MR, mild biatrial dilation. Scl erotic aortic valve with no stenosis. Left atrial mild dilation. * B12 1816, folate 7.60. On folate replacement. TSH normal 0.701. * Medical management of the various conditions as per IM. * The plan is discussed with patient's daughter who is at bedside. * Will follow-up with patient sporadically. Time with Patient: Less than 30
[2023-07-11] MEDS ORDERED: Magnesium Replacement Protocol 1 EACH MISC MISCELLANE PRN (15:43)
[2023-07-11] MEDS ORDERED: Phosphorus Replacement Protoco 1 EACH MISC MISCELLANE PRN (15:43)
--- NOTE | 2023-07-11 16:07 | P.OP ---
Date of Procedure: 07/11/23 Procedure(s) Performed: PREOPERATIVE DIAGNOSIS: Gastric perforation POSTOPERATIVE DIAGNOSIS: Same PROCEDURE: Exploratory laparotomy, repair gastric perforation 2, drainage abdominal abscess, lysis of adhesions SURGEON: Abhinav EBL: 50 mL ANESTHESIA: Gen. COMPLICATIONS: None OPERATIVE PROCEDURE: Patient place in the operating table in the supine position. The patient was placed under general anesthesia. First a left anterior lateral tube thoracostomy took place by cardiothoracic surgery. This will be dictated separately. Over 1 L of serosanguineous-appearing fluid was evacuated along with some air. The abdomen was then prepped and draped sterilely. A vertical incision was made from the xiphoid is beneath the umbilicus. The patient had a large abdominal wall mesh involving the lower 80% of the incision. This was divided using both sharp dissection and cautery. Entrance into the peritoneal cavity occurred. Some cloudy fluid in the mid abdomen and pelvis was identified. This was evacuated. As we inspected the epigastric region and a large pocket of bilious fluid was encountered. Careful blunt dissection ensued throughout the abdominal cavity so we could inspect all structures appropriately. The greater curvature of the stomach was mobilized using LigaSure. Once we entered into the posterior sac again a large volume of bilious fluid was evacuated. Once I had adequate mobilization of the stomach I was able to inspect for leak. I was able to fairly quickly identified a 1 cm hole in the anterior lateral wall of the stomach. There appeared to be a longitudinal staple line there. Technically this was challenging given the proximal nature. It was closed using a running 3-0 silk suture. I then filled the stomach up with a proximally 200 mL of methylene blue. In doing so I encountered an additional perforation more posterior lateral. There also appeared to be a staple line in this area. This hole was about 1 cm in length. Again this was closed using a running 3-0 silk suture. The stomach was then insufflated with a proximally 600 mL of methylene blue. It was fairly taut. No leak was able to be visualized anteriorly or posteriorly. We confirmed that the indwelling nasogastric tube was appropriately located and that it was not sutured to the repair site. The abdomen was then irrigated with 3 L of saline. A drain was brought in from the right upper quadrant and left upper quadrant. The left upper quadrant drain went anterior to the stomach and the right upper quadrant drain was placed in the lesser sac. The midline fascia superiorly was closed using a double-stranded #1 PDS suture. The previous mesh was then closed using short running #2 Ethibond sutures. Subcutaneous tissues were irrigated and then closed using interrupted 3-0 Vicryl sutures. The skin was loosely reapproximated with pierre. Sterile dressings were applied. DISPOSITION: Guarded to the ICU on the ventilator. Patient did seem to improve clinically as soon as the tube thoracostomy was performed. She was not on pressors for the majority of the case. Family was updated as to the patient's condition and operative findings.
[2023-07-11 16:16] LABS: Glucose,Whole Blood 158 mg/dL (70-110)
[2023-07-11 16:49] LABS: Basophils % (A) 0 %; Eosinophils % (A) 0 %; HCT 32.3 % (34.0-46.0); HGB 9.9 gm/dL (11.4-16.0); Hypochromasia Moderate; Lymphocytes # (A) 0.4 k/uL (1.0-4.8); Lymphocytes % (A) 3 %; MCH 26.8 pg (25.0-35.0); MCHC 30.6 g/dL (31.0-37.0); MCV 87.7 fL (80.0-100.0); Mean Platelet Volume 8.1; Monocytes # (A) 0.4 k/uL (0-1.0); Monocytes % (A) 3 %; Neutrophils # (A) 11.4 k/uL (1.3-7.7); Neutrophils % (A) 92 %; Platelet Count 438 k/uL (150-450); RBC 3.69 m/uL (3.80-5.40); RDW 15.1 % (11.5-15.5); WBC 12.5 k/uL (3.8-10.6)
--- NOTE | 2023-07-11 16:57 | XR ---
EXAMINATION TYPE: XR chest 1V portable DATE OF EXAM: 07/11/2023 COMPARISON: 07/11/2023 INDICATION: Line placement TECHNIQUE: Single frontal view of the chest is obtained. FINDINGS: The heart size is normal. The pulmonary vasculature is normal. Small left pleural effusion is present. A loculated left pneumothorax may be along the lateral margin of the mid to lower lung field. Previous right apical pneumothorax is resolved. There is placement o f a left-sided chest tube with the tip directed towards the apex. Endotracheal tube tip is been place d above the john. Nasogastric tube transverses the thorax. IMPRESSION: 1. Diminished size left pneumothorax may be loculated along the lateral lower lung field. 2. Lines and catheters discussed above. 3. Small left pleural effusion
[2023-07-11 17:05] LABS: ABG Base Excess 0.5 mmol/L; ABG HCO3 25 mmol/L (21-25); ABG Oxygen Saturation 91.7 % (94-97); ABG PCO2 38 mmHg (35-45); ABG PH 7.43 (7.35-7.45); ABG PO2 62 mmHg (83-108); ABG TCO2 26 mmol/L (19-24); Allen Test Performed? Yes
[2023-07-11 17:11] LABS: African American GFR (CKD) 58 (>60 ml/min/1.73 sqM); Anion Gap 8 mmol/L; Blood Urea Nitrogen 29 mg/dL (7-17); Calcium 7.5 mg/dL (8.4-10.2); Carbon Dioxide 23 mmol/L (22-30); Chloride 111 mmol/L (98-107); Glucose 151 mg/dL (74-99); Magnesium 1.9 mg/dL (1.6-2.3); Non-African American GFR(CKD) 50 (>60 ml/min/1.73 sqM); Potassium 4.2 mmol/L (3.5-5.1); Sodium 142 mmol/L (137-145)
[2023-07-11] MEDS ORDERED: SODIUM CHLORIDE 0.9% 1,000 ML IV ONE ×2 (17:38→19:00)
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
[2023-07-11] MEDS: NOREPINEPHRINE 4 MG in SODIUM CHLORIDE 0.9% 250 ML IV SCH ×2 (18:57→20:24)
--- NOTE | 2023-07-11 19:56 | P.PN ---
Subjective Progress Note Date: 07/11/23 Patient is evaluated today sitting up in the chair on medical floor. Heart rate is elevated this morning in the 150s irregular pending EKG and telemetry has also been ordered. Further recommendations pending the EKG. Patient denies any chest pain, no shortness of breath, states she feels anxious. Currently NPO. She is postoperative day #3 paraesophageal hernia repair. Has been receiving D5 1/2 NS at 75 mls/hr. Received a dose of IV lasix around 6am, BNP is elevated at 3460. 07/05/2023 Patient evaluated on the stepdown unit today currently postoperative day #4 paraesophageal hernia repair. Having 10/10 abdominal discomfort per patient however passing gas and having increased bowel sounds. Receiving IV dilaudid for pain management. On IV cardizem at 5 will be transitioned to metoprolol and cleared for anticoagulation by surgery was started on eliquis. Patient had complaints of left sided weakness which strength appears equal on examination. Had brain CT showing degenerative and remote ischemic change with no evidence of acute hemorrhage or mass effect. 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 Neurology was consulted. Chest xray follow up yesterday reveals increasing air underneath the right hemidiaphragm could reflect colonic interposition. Pneumoperitoneum not excluded. Left basilar opacity may reflect atelectasis or pneumonia. Patient was receiving IV fluids which were stopped due to proBNP of over 7000. Received second dose of IV lasix. Labs today showing sodium 147, potassium 2.9. 07/06/2023 Patient is evaluated today on the stepdown unit currently postoperative day #5 paraesophageal hernia repair. Patient today is alert x 3 however confused thrashing around. Not complaining of pain. Has been started on full liquid diet and tolerating did have a large bowel movement. Abdomen soft. Remains on IV zosyn. 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 [place] patient had a TIA. No left sided weakness noted today. Possible left facial droop however difficult to assess due to patient not being able to sit still. Labs today reveal sodium 148, potassium 3.6, BUN 41, creatinine 1.33. TSH normal 0.701. Patient is urinating had a bladder scan today no retention noted. Echocardiogram was a technically difficult study however LV function appears grossly normal at 55%, mild MR and mild biatrial dilation. 07/07/2023 Patients mentation has not much improved nursing reports continued slurred speech patient unable to swallow pills. Neurology following, patient had repeat brain CT showing chronic appearing periventricular white matter ischemic changes. Small old lacunar infarct in the basal ganglion. She is postoperative day #6 paraesophageal hernia repair. Had new onset atrial fibrillation with RVR suspected TIA. Underwent EEG today showing toxic metabolic encephalopathy and moderate to severe background slowing. No epileptiform activity noted. Patient with some scattered wheezing today and chest xray was completed which reveals a left lower lobe infiltrate and or atelectasis. Patient does have IS at bedside has not been using. Will order ST consulation rule out aspiration. Recommend at this time conservative management and avoid narcotics if possible. Patient continues on D5 water at 75 mls/hr and sodium has normalized to 145, potassium 3.3, BUN 46, creatinine 1.13. B12 1816 and folate 7.60. Patient remains afebrile, heart rate of 72, blood pressure 124/71, 96% on 2L of oxygen. 07/08/2023 Patient relates a with family at the bedside. Mentation has improved she is more awake alert and less confused. Currently postoperative day #7 paraesophageal hernia repair. Did require IV amiodarone overnight due to elevated heart rate up into the 150s. Cardiology has transitioned her to oral amiodarone today her heart rate is in the 70-80s. Anticoagulation has been resu med today. Patient remains on D5 water at 75 mls/hr. Also on IV zosyn since post surgical. Procalcitonin is elevated at 0.60. Chest xray showing left lower lobe infiltrate and or atelectasis. Her urinalysis was abnormal small leukocyte esterase, cloudy urine. 07/09/2023 Patient is postoperative day #8 paraesophageal hernia repair. Patient has been transitioned to IV amiodarone at half rate and will continue; with plans to transition to oral amiodarone today. Heart rate has improved for the afib RVR. Surgery has okay the eliquis and she continues on 5 mg BID of eliquis. Patient has tolerated increased diet she is not complaining of much abdominal pain having some hypoactive bowel sounds she has not been able to get out of bed over the last few days due to her altered mentation. Had an abdomen pelvis CT done showing right upper lobe left lung which could represent atypical pneumonia. Sm all left and trace right pleural effusions no other definitive evidence for source of infectious process. There is no evidence for acute infectious process within the abdomen or pelvis. There is colonic diverticulosis. Today she has scattered audible wheezing today. She continues on duonebs QID and scheduled and remains on oxygen support. Family at the bedside updated on plan of care. 07/10/2023 Patient is postoperative day #9 paraesophageal hernia repair. Patient's bowel sounds were hypoactive yesterday and did vomit is morning per nursing the vomit was brown in color. She had an NG tube placed abdominal x-ray was done which shows stable placement of NG tube. Additionally she remains on nasal cannula oxygen support with scattered wheezing. She did not tolerate prior diuresis and went in to acute kidney injury and for this reason she has been maintained on IV fluids. Her proBNP is still elevated at 4980. Patient had a follow-up chest x- ray showing increased haziness in the left lung correlate with serum BNP given the patient's cardiomyopathy related to rule out congestive heart failure. There is pulmonary vascular congestion. There is no evidence of pleural effusion focal consolidation or pneumothorax. We did do a chest ultrasound yesterday which does reveal a 8.3 cm left pleural effusion. Pulmonary was consulted for further evaluation and given patient a dose of IV Lasix today. Eliquis is now being held for a possible thoracentesis. Patient does have worsening white count 19.1 today, hemoglobin stable at 11.0, sodium 140, potassium 3.8, BUN of 14, creatinine 0.55. Viral panel is negative for influenza RSV and Covid. 07/11/2023 Patient is postoperative day #10 paraesophageal hernia repair. She has been maintained on the stepdown unit. In sinus mechanism and has been transitioned to oral amiodarone. Eliquis has been placed on hold for possible thoracentesis. Fluids were held, patient received a dose of IV lasix yesterday. Had an increase in white count up to 19. Repeat abdominal CT was done showing interval development of a fluid collection posterior to the stomach measuring 4 cm AP by 9.4 cm transverse. Moderate left and tiny right pleural effusions with associated atelectasis. Overnight patient developed acute chest pain, was found to have elevated D Dimer and also had troponin elevation, did have drop in BP down to 70/50s. She was moved to the intensive care unit. Chest xray continues to show moderate to large pleural effusion. Patient was noted to have left pneumothorax, left lower lobe infiltrate correlate for CHF moderate left pleural effusion is cardiomegaly, and left pleural effusion noted on follow up chest xray. Venous doppler negative for DVT. Labs today showing sodium 141, potassium 3.8, BUN 20, creatinine 0.80. Elevated D dimer of 9.00. Family at bedside was updated discussed need for chest tub placement and exploratory laporotomy. No further questions at this time. Daughter asking what next steps are if they don't want aggressive measures hospice care was discussed. Review of Systems Constitutional: Denied any fatigue denied any fever. Cardio vascular: Denied any chest pain, palpitations Gastrointestinal: Denied any nausea, vomiting, diarrhea Pulmonary: Reports shortness of breath, reports chest pain Neurologic: Denied any new focal deficits Reports weakness All inpatient medications were reviewed and appropriate changes in these medications as dictated in the interval history and assessment and plan. PHYSICAL EXAMINATION: GENERAL: The patient is alert and oriented x2, confused, not in any acute d istress. Well developed, well nourished. HEENT: Pupils are round and equally reacting to light. EOMI. No scleral icterus. No conjunctival pallor. Normocephalic, atraumatic. No pharyngeal erythema. No thyromegaly. CARDIOVASCULAR: S1 and S2 present. No murmurs, rubs, or gallops. Tachycardic irregular. PULMONARY: Faint scattered wheezing ABDOMEN: Soft, nontender, nondistended, normoactive bowel sounds. No palpable organomegaly. Post surgical. MUSCULOSKELETAL: No joint swelling or deformity. EXTREMITIES: No cyanosis, clubbing, or pedal edema. NEUROLOGICAL: Gross neurological examination did not reveal any focal deficits however patient is confused. Has some slurred speech. Diffuse weakness. SKIN: No rashes. Assessment -Recurrent paraesophageal hernia postoperative day #10 laproscopic surgical repair with mesh remains on IV zosyn postoperatively, patient has development of small fluid collection posterior to the stomach. -New onset atrial fibrillation with RVR treated with IV cardizem and then required IV amiodarone and now on oral amiodarone. -Hypokalemia due to diuresis and NPO diet improved with supplementation -Hypernatremia, resolved -Interval development of left pneumothorax -Altered mental status likely acute metabolic encephalopathy from DANIEL and hypernatremia not improved neurology following undergoing work up. Seroquel has been added for acute agitation. -Pt reports left sided weakness neurology consultation patient had brain CT likely due to TIA and symptoms have resolved. On statin therapy. and Now on eliquis 5 mg BID. -Acute kidney injury prerenal due to dehydration will add D5 at 75 mls/hr and repeat labs in AM, No urinary retention noted. Renal function improving will repeat labs in AM -Left sided pleural effusion noted on CT will repeat chest xray and chest US for further evaluation may need pulmonary consultation for possible drainage of the pleural effusion. given a dose of IV lasix today, eliquis held following chest xrays. -Leukocytosis worsening -Troponin elevation rule out ACS cardiology following. -Hypertension -Hyperlipidemia -Restless leg syndrome recommending to hold gabapentin at this time due to confusion; will be continued on requip -Gastroesophageal reflux disease -Anxiety/Depression -Chronic back pain with prior lumbar decompression and fusion -Former nicotine use -Hx of TIA GI prophylaxis DVT prophylaxis Full Code Plan Heart rate in sinus mechanism at this time, patient on oral amiodarone and oral metoprolol has been placed on NPO for surgery, patient keeps going in and out of afib with rapid ventricular rate and discussed with cardiology who is recommending patient be continued on IV cardizem at 5 ml/hr Patient has been moved to the intensive care unit plans to undergo exploratory laporatomy today Cardiothoracic has been consulted for evaluation and chest tube placement for the pneumothorax Remains on IV zosyn post surgically, infectious disease following, patient does have elevated procalcitonin level of 0.60. Pulmonary has been consulted and following. Eliquis has been resumed however placed on hold for exploratory laporotomy planned for today. Repeat labs in AM PT/OT consultation The impression and plan of care has been dictated by Teresita Jones, Nurse Practitioner as directed. Dr. Samra MD I have performed a history and physical examination and medical decision making of this patient, discussed the same with the dictator, and agree with the dictators assessment and plan as written, documented as a scribe. Based on total visit time, I have performed more than 50% of this visit. Objective - Vital Signs Vital signs: Vital Signs Temp 97.9 F 07/11/23 04:00 Pulse 61 07/11/23 08:01 Resp 21 07/11/23 07:00 BP 111/56 07/11/23 07:00 Pulse Ox 94 L 07/11/23 07:00 FiO2 Intake & Output 07/10/23 07/11/23 07/11/23 18:59 06:59 18:59 Intake Total 0 160 10 Output Total 0 400 0 Balance 0 -240 10 Intake: IV 160 10 Piperacillin-Tazobactam 3 100 .375 gm In Sodium Chloride 0.9% 100 ml @ 25 mls/hr IVPB Q8HR [facility] Rx# :[id number] kvo 60 10 Oral 0 Output: Gastric Drainage 0 Urine 400 0 Other: Voiding Method Diaper External Catheter # Voids 1 - Labs CBC & Chem 7: 07/11/23 16:41 07/11/23 16:41 Labs: Abnormal Lab Results - Last 24 Hours (Table) 07/10/23 07/10/23 07/10/23 Range/Units 07:39 07:39 23:28 WBC 19.1 H (3.8-10.6) k/uL Hgb 11.0 L (11.4-16.0) gm/dL MCHC 30.9 L (31.0-37.0) g/dL Neutrophils # 17.1 H (1.3-7.7) k/uL Lymphocytes # 0.5 L (1.0-4.8) k/uL D-Dimer (<0.60) mg/L FEU ABG pO2 (83-108) mmHg ABG HCO3 (21-25) mmol/L ABG Total CO2 (19-24) mmol/L ABG O2 Saturation (94-97) % Chloride 110 H (98-107) mmol/L Carbon Dioxide 21 L (22-30) mmol/L BUN (7-17) mg/dL Glucose 130 H (74-99) mg/dL POC Glucose (mg/dL) 142 H (70-110) mg/dL Calcium (8.4-10.2) mg/dL ALT (4-34) U/L Alkaline Phosphatase (38-126) U/L Troponin I (0.000-0.034) ng/mL Total Protein (6.3-8.2) g/dL Albumin (3.5-5.0) g/dL 07/10/23 07/11/23 07/11/23 Range/Units 23:58 00:22 00:22 WBC 15.4 H (3.8-10.6) k/uL Hgb 11.1 L (11.4-16.0) gm/dL MCHC (31.0-37.0) g/dL Neutrophils # (1.3-7.7) k/uL Lymphocytes # (1.0-4.8) k/uL D-Dimer (<0.60) mg/L FEU ABG pO2 (83-108) mmHg ABG HCO3 (21-25) mmol/L ABG Total CO2 (19-24) mmol/L ABG O2 Saturation (94-97) % Chloride 108 H (98-107) mmol/L Carbon Dioxide (22-30) mmol/L BUN 18 H (7-17) mg/dL Glucose 155 H (74-99) mg/dL POC Glucose (mg/dL) 145 H (70-110) mg/dL Calcium 8.3 L (8.4-10.2) mg/dL ALT 47 H (4-34) U/L Alkaline Phosphatase 214 H (38-126) U/L Troponin I (0.000-0.034) ng/mL Total Protein 4.8 L (6.3-8.2) g/dL Albumin 2.2 L (3.5-5.0) g/dL 07/11/23 07/11/23 07/11/23 Range/Units 00:22 00:22 03:40 WBC 13.0 H (3.8-10.6) k/uL Hgb 11.0 L (11.4-16.0) gm/dL MCHC (31.0-37.0) g/dL Neutrophils # 11.8 H (1.3-7.7) k/uL Lymphocytes # 0.5 L (1.0-4.8) k/uL D-Dimer 9.00 H (<0.60) mg/L FEU ABG pO2 (83-108) mmHg ABG HCO3 (21-25) mmol/L ABG Total CO2 (19-24) mmol/L ABG O2 Saturation (94-97) % Chloride (98-107) mmol/L Carbon Dioxide (22-30) mmol/L BUN (7-17) mg/dL Glucose (74-99) mg/dL POC Glucose (mg/dL) (70-110) mg/dL Calcium (8.4-10.2) mg/dL ALT (4-34) U/L Alkaline Phosphatase (38-126) U/L Troponin I 0.096 H* (0.000-0.034) ng/mL Total Protein (6.3-8.2) g/dL Albumin (3.5-5.0) g/dL 07/11/23 07/11/23 07/11/23 Range/Units 03:40 06:07 07:39 WBC (3.8-10.6) k/uL Hgb (11.4-16.0) gm/dL MCHC (31.0-37.0) g/dL Neutrophils # (1.3-7.7) k/uL Lymphocytes # (1.0-4.8) k/uL D-Dimer (<0.60) mg/L FEU ABG pO2 69 L (83-108) mmHg ABG HCO3 27 H (21-25) mmol/L ABG Total CO2 29 H (19-24) mmol/L ABG O2 Saturation 93.2 L (94-97) % Chloride 108 H (98-107) mmol/L Carbon Dioxide (22-30) mmol/L BUN 20 H (7-17) mg/dL Glucose 147 H (74-99) mg/dL POC Glucose (mg/dL) (70-110) mg/dL Calcium 8.2 L (8.4-10.2) mg/dL ALT (4-34) U/L Alkaline Phosphatase (38-126) U/L Troponin I 0.144 H* (0.000-0.034) ng/mL Total Protein (6.3-8.2) g/dL Albumin (3.5-5.0) g/dL Microbiology - Last 24 Hours (Table) 07/07/23 14:07 Blood Culture - Preliminary Blood Assessment and Plan Time with Patient: Greater than 30
[2023-07-11] MEDS ORDERED: MAGNESIUM SULFATE-D5W PMX 1 GM in DEXTROSE/WATER 1 100ML.BAG IVPB ONE (20:00)
[2023-07-11] MEDS: CHLORHEXIDINE GLUCONATE 15 ML CUP MUCOUS MEM SCH (20:44)
[2023-07-12] MEDS: DAPTOmycin 500 MG in SODIUM CHLORIDE 0.9% 50 ML IVPB SCH ×2 (00:01→23:45)
[2023-07-12] MEDS: methylPREDNISolone SOD SUCCI 40 MG/ML 1 ML VIAL IV SCH ×4 (00:01→23:45)
[2023-07-12] MEDS: HYDROmorphone 0.5 MG/0.5 ML SYRINGE IVP PRN ×3 (00:54→11:37)
[2023-07-12] MEDS: PIPERACILLIN-TAZOBACTAM 3.375 GM in SODIUM CHLORIDE 0.9% 100 ML IVPB SCH ×3 (01:37→16:31)
[2023-07-12] MEDS: NOREPINEPHRINE 4 MG in SODIUM CHLORIDE 0.9% 250 ML IV SCH ×2 (03:09→10:58)
[2023-07-12] MEDS ORDERED: HYDROmorphone 0.5 MG/0.5 ML SYRINGE IVP STA (03:20)
[2023-07-12 04:48] LABS: Basophils # (A) 0.1 k/uL (0-0.2); Basophils % (A) 0 %; Eosinophils % (A) 0 %; HCT 30.7 % (34.0-46.0); HGB 9.8 gm/dL (11.4-16.0); Hypochromasia Marked; Lymphocytes # (A) 0.5 k/uL (1.0-4.8); Lymphocytes % (A) 2 %; MCHC 31.9 g/dL (31.0-37.0); MCV 87.6 fL (80.0-100.0); Mean Platelet Volume 8.6; Monocytes # (A) 0.6 k/uL (0-1.0); Monocytes % (A) 3 %; Neutrophils # (A) 17.9 k/uL (1.3-7.7); Neutrophils % (A) 93 %; Platelet Count 488 k/uL (150-450); WBC 19.2 k/uL (3.8-10.6)
[2023-07-12 04:59] LABS: African American GFR (CKD) 49 (>60 ml/min/1.73 sqM); Anion Gap 7 mmol/L; Blood Urea Nitrogen 35 mg/dL (7-17); Calcium 7.4 mg/dL (8.4-10.2); Carbon Dioxide 22 mmol/L (22-30); Chloride 113 mmol/L (98-107); Glucose 172 mg/dL (74-99); Magnesium 2.2 mg/dL (1.6-2.3); Non-African American GFR(CKD) 43 (>60 ml/min/1.73 sqM); Potassium 3.9 mmol/L (3.5-5.1); Sodium 142 mmol/L (137-145)
[2023-07-12 06:03] LABS: ABG Base Excess -2.4 mmol/L; ABG HCO3 23 mmol/L (21-25); ABG Oxygen Saturation 97.8 % (94-97); ABG PCO2 40 mmHg (35-45); ABG PH 7.37 (7.35-7.45); ABG PO2 111 mmHg (83-108); ABG TCO2 24 mmol/L (19-24); Allen Test Performed? Yes
[2023-07-12] MEDS: POTASSIUM CHLORIDE 10 MEQ in WATER FOR INJECTION 1 100ML.BAG IVPB SCH ×2 (06:24→11:37)
[2023-07-12] MEDS: DILTIAZEM 125 MG in SODIUM CHLORIDE 0.9% 100 ML IV SCH (08:11)
[2023-07-12] MEDS ORDERED: TERBUTALINE FOR EXTRAVASATION 1 MG/ML VIAL SQ STA (08:34)
[2023-07-12] MEDS ORDERED: CISATRACURIUM 2 MG/ML 5 ML VIAL IV ONE (08:34)
[2023-07-12] MEDS: BUDESONIDE 1 MG/2 ML NEBU INHALATION SCH ×2 (08:42→20:15)
[2023-07-12] MEDS: IPRATROPIUM-ALBUTEROL 3 ML NEB INHALATION SCH ×4 (08:42→20:15)
[2023-07-12] MEDS: PANTOPRAZOLE 40 MG/10 ML VIAL IVP SCH ×2 (08:46→20:30)
[2023-07-12] MEDS: CHLORHEXIDINE GLUCONATE 15 ML CUP MUCOUS MEM SCH ×2 (08:47→20:30)
[2023-07-12] MEDS: LIDOCAINE 4% PATCH TOPICAL SCH (08:51)
--- NOTE | 2023-07-12 08:54 | P.PN ---
Subjective Progress Note Date: 07/12/23 Principal diagnosis: Left pleural effusion, status post placement of left-sided pleural chest tube by Dr. Perkins 07/11/2023 The patient was seen and examined this morning with Dr. Newman laying in bed in the intensive care unit, sedated on mechanical ventilation. Remains in sinus rhythm, blood pressure low, remains on IV Cardizem, Levophed, propofol. Ventilator adjustments per pulmonology. Left-sided pleural chest tube remains present, 60 mL serous drainage overnight, 1300 mL drainage since insertion of chest tube. Objective - Vital Signs Vital signs: Vital Signs Temp 97.3 F L 07/12/23 04:00 Pulse 78 07/12/23 07:00 Resp 22 07/12/23 07:00 BP 145/59 07/12/23 07:00 Pulse Ox 98 07/12/23 07:00 FiO2 50 07/12/23 08:42 Intake & Output 07/11/23 07/12/23 07/12/23 18:59 06:59 18:59 Intake Total 1245.367 5767.306 225.640 Output Total 1775 400 35 Balance -049.569 3444.306 190.640 Weight 67.6 kg 78.6 kg Intake: IV 1325 500 75 Piperacillin-Tazobactam 3 175 50 .375 gm In Sodium Chloride 0.9% 100 ml @ 25 mls/hr IVPB Q8HR [facility] Rx# :[id number] kvo 50 450 75 Intake, IV Titration 41.591 2633.306 150.640 Amount Diltiazem 125 mg In 35 5 100.417 Sodium Chloride 0.9% 100 ml @ 5 MG/HR 5 mls/hr IV .Q24H [facility] Rx#:[id number] Magnesium Sulfate-D5w Pmx 100 1 gm In Dextrose/Water 1 100ml.bag @ 100 mls/hr IVPB ONCE [facility] Rx#: [id number] Norepinephrine 4 mg In 385.603 50.223 Sodium Chloride 0.9% 250 ml @ 0.03 MCG/KG/MIN 7. 727 mls/hr IV .Q24H [facility] Rx#:[id number] Sodium Chloride 0.9% 1, 1000 000 ml @ 999 mls/hr IV . Q1H1M [facility] Rx#:[id number] Sodium Chloride 0.9% 1, 1000 000 ml @ 999 mls/hr IV . Q1H1M [facility] Rx#:[id number] propofoL 1,000 mg In 6.591 142.703 Empty Bag 1 bag @ 15 MCG/ KG/MIN 6.084 mls/hr IV . [id number] [facility] Rx#:[id number] Output: Chest Tube Drainage 1000 130 Chest Tube Left 1000 130 Drainage 30 50 Left Abdomen 20 20 Right Abdomen 10 30 Urine 695 220 35 Estimated Blood Loss 50 Other: Voiding Method Indwelling Catheter Indwelling Catheter ABP, PAP, CO, CI - Last Documented Arterial Blood Pressure 130/50 - Exam CONSTITUTIONAL: Remains sedated on mechanical ventilation RESPIRATORY: Lungs sounds diminished bilaterally. Respirations even, nonlabored. Currently on FiO2 50%, PEEP 5, TV 400, RR 20. 7.0 ETT present, 22@ the lip CARDIOVASCULAR: S1, S2 present. Regular rate and rhythm, sinus rhythm on telemetry. Palpable peripheral pulses bilaterally. No edema present. SCDs present. GASTROINTESTINAL: Abdomen soft, tender, nondistended. Hypoactive bowel sounds present. NGT present. GENITOURINARY: Coelho present draining clear, yellow urine INTEGUMENTARY: Skin is warm, abd incision covered with dry intact dressing, bilateral JENI drains present NEUROLOGIC: Sedated MUSKULOSKELETAL: Able to move all extremities although upper extremities restrained INVASIVE LINES AND TUBES: Left pleural chest tube present and connected to wall suction, no air leaks present, 60 mL serosanguineous drainage overnight, 1300 mL in the last 24 hours - Allied health notes Allied health notes reviewed: nursing - Labs CBC & Chem 7: 07/12/23 04:35 07/12/23 04:35 Labs: Abnormal Lab Results - Last 24 Hours (Table) 07/11/23 07/11/23 07/11/23 Range/Units 16:14 16:41 16:41 WBC 12.5 H (3.8-10.6) k/uL RBC 3.69 L (3.80-5.40) m/uL Hgb 9.9 L (11.4-16.0) gm/dL Hct 32.3 L (34.0-46.0) % MCHC 30.6 L (31.0-37.0) g/dL Plt Count (150-450) k/uL Neutrophils # 11.4 H (1.3-7.7) k/uL Lymphocytes # 0.4 L (1.0-4.8) k/uL ABG pO2 (83-108) mmHg ABG Total CO2 (19-24) mmol/L ABG O2 Saturation (94-97) % Chloride 111 H (98-107) mmol/L BUN 29 H (7-17) mg/dL Creatinine 1.06 H (0.52-1.04) mg/dL Glucose 151 H (74-99) mg/dL POC Glucose (mg/dL) 158 H (70-110) mg/dL Calcium 7.5 L (8.4-10.2) mg/dL 07/11/23 07/12/23 07/12/23 Range/Units 17:00 04:35 04:35 WBC 19.2 H (3.8-10.6) k/uL RBC 3.50 L (3.80-5.40) m/uL Hgb 9.8 L (11.4-16.0) gm/dL Hct 30.7 L (34.0-46.0) % MCHC (31.0-37.0) g/dL Plt Count 488 H (150-450) k/uL Neutrophils # 17.9 H (1.3-7.7) k/uL Lymphocytes # 0.5 L (1.0-4.8) k/uL ABG pO2 62 L (83-108) mmHg ABG Total CO2 26 H (19-24) mmol/L ABG O2 Saturation 91.7 L (94-97) % Chloride 113 H (98-107) mmol/L BUN 35 H (7-17) mg/dL Creatinine 1.20 H (0.52-1.04) mg/dL Glucose 172 H (74-99) mg/dL POC Glucose (mg/dL) (70-110) mg/dL Calcium 7.4 L (8.4-10.2) mg/dL 07/12/23 Range/Units 05:54 WBC (3.8-10.6) k/uL RBC (3.80-5.40) m/uL Hgb (11.4-16.0) gm/dL Hct (34.0-46.0) % MCHC (31.0-37.0) g/dL Plt Count (150-450) k/uL Neutrophils # (1.3-7.7) k/uL Lymphocytes # (1.0-4.8) k/uL ABG pO2 111 H (83-108) mmHg ABG Total CO2 (19-24) mmol/L ABG O2 Saturation 97.8 H (94-97) % Chloride (98-107) mmol/L BUN (7-17) mg/dL Creatinine (0.52-1.04) mg/dL Glucose (74-99) mg/dL POC Glucose (mg/dL) (70-110) mg/dL Calcium (8.4-10.2) mg/dL Microbiology - Last 24 Hours (Table) 07/11/23 18:08 Gram Stain - Preliminary Abdomen 07/11/23 00:22 Blood Culture Gram Stain - Preliminary Blood - Imaging and Cardiology Chest x-ray: image reviewed Assessment and Plan Assessment: Left pleural effusion, status post placement of left pleural chest tube S/P repair of paraesophageal hernia Possible abdominal abscess COPD Metabolic encephalopathy DANIEL HTN PAF PIPPA GERD Previous tobacco dependence Plan: Continue chest tube to continuous wall suction, monitor output Will monitor daily CXR Ventilator management per pulmonology, once extubated encourage incentive spirometry Medical management of other comorbidities per general surgery, pulmonology, cardiology, internal medicine, infectious disease More recommendations regarding chest tube to follow
--- NOTE | 2023-07-12 09:55 | PCN ---
PROCEDURE NOTE PROCEDURE PERFORMED: Right femoral vein triple-lumen catheter. PREOPERATIVE DIAGNOSIS: Administration of fluids and pressors. POSTOPERATIVE DIAGNOSIS: Administration of fluids and pressors. FIRST LINOTYPER: Dr. Astrid Zamora. DESCRIPTION OF PROCEDURE: There was informed consent and universal timeout. The patient's procedure took place in room 259. TRIPLE LUMEN CATHETER PLACEMENT: Indication: Hemodynamic monitoring/Intravenous access. A time-out was completed verifying correct patient, procedure, site, positioning, and implant(s) or special equipment if applicable. The patient was placed in a dependent position appropriate for triple lumen catheter placement based on the vein to be cannulated. The patient's right shoulder or right neck or right groin was prepped and draped in sterile fashion. 1% Lidocaine was used to anesthetize the surrounding skin area. A triple lumen 9F Cordis catheter was introduced into the right subclavian or internal jugular or common femoral vein using Seldinger technique. The catheter was threaded smoothly over the guide wire and appropriate blood return was obtained. Each lumen of the catheter was evacuated of air and flushed with sterile saline. The catheter was then sutured in place to the skin and a sterile dressing applied. Perfusion to the extremity distal to the point of catheter insertion was checked and found to be adequate. There was good blood return from all 3 ports. The patient tolerated the procedure well. The catheter was sutured in place and sterile dressings applied. There were no immediate complications. MMODL / IJN: [id number] /
--- NOTE | 2023-07-12 10:55 | P.PN ---
Subjective Progress Note Date: 07/12/23 Principal diagnosis: Respiratory failure. This is an 82-year-old female with history of multiple medical problems including hypertension, CVA, dyslipidemia, iron deficiency anemia, depression and generalized anxiety disorder, patient was also noted to have recurrent paraesophageal hiatal hernia. On 07/01/2023, patient was admitted by Dr. Kendrick for elective laparoscopic repair of paraesophageal hernia with absorbable mesh. Procedure was done on 07/01/2023, and the patient was managed medically by internal medicine after the surgery. Since her admission till now, patient has been seen by many consultants including internal medicine, cardiology, general surgery, neurology, infectious disease, all along the patient was noted to have a small left pleural effusion, which was noted to be present 2 days after her surgery, and this pleural effusion was not present back in December of 2022 based on an old chest x-ray clearly this pleural effusion is considered relatively new and developed shortly after her surgery. Echocardiogram on this patient showed good ejection fraction, she had mild pulmonary hypertension, and she had moderate tricuspid regurgitation and sclerotic aortic valve was noted but no stenosis. On this admission the patient developed new onset paroxysmal atrial fibrillation, hence the patient was given metoprolol, and she was also placed on eliquis. Amiodarone was added. And intermittently the patient has been receiving Lasix for presumptive congestive heart failure. Ultrasound of the chest on 07/09 showed moderate left pleural effusion and small right pleural effusion, left side is amenable for thoracentesis. However the patient has been on eliquis all along, and I am recommending that we hold the eliquis today, and possibly consider thoracentesis in the next 24 hours. In the meantime patient will be given a dose of diuretics, I believe most likely the fluid is cardiogenic in nature unless proven otherwise. Again this fluid was not present prior to her admission. Not to mention during my examination the patient, she had diffuse rhonchi and wheezes bilaterally, she does have a nasogastric tube in place, and she definitely needs to be placed on bronchodilators to optimize her pulmonary status. Patient seems to have large nasogastric output today. Chest x-ray this morning showed congestive changes with left-sided pleural effusion. Possibility of congestive heart failure is very likely considering the chest x-ray appearan ce. BNP level today is almost 5000. Progress note dated 07/11/2023. 82-year-old female seen yesterday in consultation by my partner. The patient was admitted back on July 01, for an elective repair of a hiatal hernia. The patient's surgery took place on July 01. The patient was brought to the intensive care unit, on July 10, for atrial fibrillation with RVR, and low blood pressure. The patient is seen today in room 259. The patient's currently on Zosyn. The patient's on a liter high flow oxygen, and has an NG tube in place. The patient's getting 0.9 at KVO. A computed tomography scan of the abdomen and pelvis, apparently has revealed a fluid collection, in the abdomen. The surgery is considering exploratory laparotomy. In addition, because of new onset atrial fibrillation, the patient will have Dopplers of lower extremities. White count 13, hemoglobin 11, platelet count normal. D-dimer was 9. Blood gases show pO2 of 69, pCO2 45, and a pH of 7.4. This was on 35% oxygen. Sodium 141, potassium 3.8, chlorides 108, CO2 26, BUN 20, creatinine 0.8. Troponins were 0.096 and 0.144. Albumin was 2.2. Blood cultures are negative. Chest x- ray reveals a left lower lobe infiltrate with a left pleural effusion, and a possible left-sided pneumothorax. CT of the abdomen shows a interval development of a fluid collection, posterior to the stomach, measuring 4 cm x 9.4 cm. Progress note dated 07/12/2023. 82-year-old female seen in consultation 2 days ago by my partner. The patient was seen today in the intensive care unit. The patient had surgery yesterday. A computed tomography scan revealed an abnormality, posterior to the stomach. The patient is postop day #1, status post exploratory laparotomy, repair of gastric perforation, drainage of abdominal abscess, and lysis of adhesions. The surgery was done by Dr. La. The patient came back to the intensive care unit, on the mechanical ventilator. She remains on the mechanical ventilator. She is on the volume assist control, rate 20, tidal volume 400, FiO2 50%, and PEEP of 5. Blood gases show pO2 111, pCO2 of 40, and a pH is 7.37. The patient's getting lactated Ringer's at 75 mL an hour, propofol at 45 mcg/kg/m, norepinephrine, which is been weaned off, and a Cardizem drip of 5 mg an hour. The chest tube was placed by cardiothoracic surgery on the left side yesterday. The patient currently is on Zosyn and daptomycin. Blood cultures are apparently positive for possible streptococci, and vancomycin-resistant enterococci. White count 19.2, hemoglobin 9.8, hematocrit 30.7, and platelet count 488,000. Sodium 142, potassium 3.9, chlorides 113, CO2 22, BUN 35, creatinine 1.20. Magnesium is 2.2. Chest x-ray shows relatively clear right lung, properly positioned endotracheal tube, a left-sided chest tube, and some volume off in the left chest, with a residual left-sided pleural effusion. Objective - Vital Signs Vital signs: Vital Signs Temp 98 F 07/12/23 07:15 Pulse 76 07/12/23 09:00 Resp 10 L 07/12/23 09:00 BP 134/56 07/12/23 08:45 Pulse Ox 97 07/12/23 09:00 FiO2 50 07/12/23 08:51 Intake & Output 07/11/23 07/12/23 07/12/23 18:59 06:59 18:59 Intake Total 8215.998 3375.306 300.640 Output Total 1775 400 70 Balance -403.192 4447.306 230.640 Weight 67.6 kg 78.6 kg Intake: IV 1325 500 150 Piperacillin-Tazobactam 3 175 50 .375 gm In Sodium Chloride 0.9% 100 ml @ 25 mls/hr IVPB Q8HR [facility] Rx# :[id number] kvo 50 450 150 Intake, IV Titration 41.591 2633.306 150.640 Amount Diltiazem 125 mg In 35 5 100.417 Sodium Chloride 0.9% 100 ml @ 5 MG/HR 5 mls/hr IV .Q24H [facility] Rx#:[id number] Magnesium Sulfate-D5w Pmx 100 1 gm In Dextrose/Water 1 100ml.bag @ 100 mls/hr IVPB ONCE ONE Rx#: [id number] Norepinephrine 4 mg In 385.603 50.223 Sodium Chloride 0.9% 250 ml @ 0.03 MCG/KG/MIN 7. 727 mls/hr IV .Q24H [facility] Rx#:[id number] Sodium Chloride 0.9% 1, 1000 000 ml @ 999 mls/hr IV . Q1H1M [facility] Rx#:[id number] Sodium Chloride 0.9% 1, 1000 000 ml @ 999 mls/hr IV . Q1H1M ONE Rx#:[id number] propofoL 1,000 mg In 6.591 142.703 Empty Bag 1 bag @ 15 MCG/ KG/MIN 6.084 mls/hr IV . [id number] [facility] Rx#:[id number] Output: Chest Tube Drainage 1000 130 Chest Tube Left 1000 130 Drainage 30 50 Left Abdomen 20 20 Right Abdomen 10 30 Urine 695 220 70 Estimated Blood Loss 50 Other: Voiding Method Indwelling Catheter Indwelling Catheter Indwelling Catheter ABP, PAP, CO, CI - Last Documented Arterial Blood Pressure 99/44 - Exam No acute distress, patient's sedated, with an orally placed endotracheal tube, and NG tube. HEENT examination is grossly unremarkable. Mucous membranes are moist. No oral lesions. NG tube in place. Neck supple. Full range of motion. No adenopathy thyromegaly or neck vein distention. Cardiovascular examination reveals regular rhythm rate. S1-S2 normal. No S3 or S4. No discernible murmur noted. Heart sounds are distant. Heart rate 76 bpm. Lungs reveal scattered rhonchi. No wheezes or crackles. Breath sounds equal. Saturations 97%. A left-sided chest tube is noted. Abdomen soft, without bowel sounds. Extremities are intact. No cyanosis clubbing or edema. Skin is without rash or lesion. Neurologic examination not able to be evaluated at this time. - Labs CBC & Chem 7: 07/12/23 04:35 07/12/23 04:35 Labs: Abnormal Lab Results - Last 24 Hours (Table) 07/11/23 07/11/23 07/11/23 Range/Units 16:14 16:41 16:41 WBC 12.5 H (3.8-10.6) k/uL RBC 3.69 L (3.80-5.40) m/uL Hgb 9.9 L (11.4-16.0) gm/dL Hct 32.3 L (34.0-46.0) % MCHC 30.6 L (31.0-37.0) g/dL Plt Count (150-450) k/uL Neutrophils # 11.4 H (1.3-7.7) k/uL Lymphocytes # 0.4 L (1.0-4.8) k/uL ABG pO2 (83-108) mmHg ABG Total CO2 (19-24) mmol/L ABG O2 Saturation (94-97) % Chloride 111 H (98-107) mmol/L BUN 29 H (7-17) mg/dL Creatinine 1.06 H (0.52-1.04) mg/dL Glucose 151 H (74-99) mg/dL POC Glucose (mg/dL) 158 H (70-110) mg/dL Calcium 7.5 L (8.4-10.2) mg/dL 07/11/23 07/12/23 07/12/23 Range/Units 17:00 04:35 04:35 WBC 19.2 H (3.8-10.6) k/uL RBC 3.50 L (3.80-5.40) m/uL Hgb 9.8 L (11.4-16.0) gm/dL Hct 30.7 L (34.0-46.0) % MCHC (31.0-37.0) g/dL Plt Count 488 H (150-450) k/uL Neutrophils # 17.9 H (1.3-7.7) k/uL Lymphocytes # 0.5 L (1.0-4.8) k/uL ABG pO2 62 L (83-108) mmHg ABG Total CO2 26 H (19-24) mmol/L ABG O2 Saturation 91.7 L (94-97) % Chloride 113 H (98-107) mmol/L BUN 35 H (7-17) mg/dL Creatinine 1.20 H (0.52-1.04) mg/dL Glucose 172 H (74-99) mg/dL POC Glucose (mg/dL) (70-110) mg/dL Calcium 7.4 L (8.4-10.2) mg/dL 07/12/23 Range/Units 05:54 WBC (3.8-10.6) k/uL RBC (3.80-5.40) m/uL Hgb (11.4-16.0) gm/dL Hct (34.0-46.0) % MCHC (31.0-37.0) g/dL Plt Count (150-450) k/uL Neutrophils # (1.3-7.7) k/uL Lymphocytes # (1.0-4.8) k/uL ABG pO2 111 H (83-108) mmHg ABG Total CO2 (19-24) mmol/L ABG O2 Saturation 97.8 H (94-97) % Chloride (98-107) mmol/L BUN (7-17) mg/dL Creatinine (0.52-1.04) mg/dL Glucose (74-99) mg/dL POC Glucose (mg/dL) (70-110) mg/dL Calcium (8.4-10.2) mg/dL Microbiology - Last 24 Hours (Table) 07/11/23 18:08 Gram Stain - Preliminary Abdomen 07/11/23 00:22 Blood Culture Gram Stain - Preliminary Blood Assessment and Plan Assessment: Postop day #11, status post repair of her recurrent paraesophageal hernia. Postop day 1, status post exploratory laparotomy, repair of gastric perforation, drainage of abdominal abscess, and lysis of adhesions. Status post left-sided chest tube placement, 07/11/2023. COPD, acutely active. Mental status changes, secondary to metabolic encephalopathy. Acute kidney injury. Benign essential hypertension. Paroxysmal atrial fibrillation, with rapid ventricular response. Generalized anxiety disorder. GERD with esophagitis. Restless leg syndrome. Chronic back pain. Previous tobacco use. Plan: Plan dated 07/11/2023. The patient is acutely. She remains in the intensive care unit. The patient's on 8 L of oxygen, high flow. She does have a left-sided pleural effusion, and may have a left-sided pneumothorax. I did speak to the surgeon, was planning on doing exploratory laparotomy, evaluated the fluid collection, posterior to the stomach. The patient will likely come back to the intensive care unit, on the mechanical ventilator. Additional recommendations and suggestions are forthcoming. Labs, x-rays, medications are reviewed. X-rays are negative. She remains on Zosyn. Follow make recommendations along the way. Prognosis is guarded. Plan dated 07/12/2023. The patient went to the operating room yesterday, for a fluid collection behind the stomach. The patient was discovered to have a perforated stomach, and abscess, that was drained, and lysis of adhesions. The patient came back to the ICU on the ventilator. She remains on the ventilator at this time. She continues on propofol, and Cardizem 5 mg an hour. She has a left chest tube was placed by cardiothoracic surgery for left pleural effusion and possible left- sided pneumothorax. The patient's on Zosyn and daptomycin, for vancomycin- resistant enterococci, and possible streptococci. Additional recommendations and suggestions are forthcoming. Prognosis is guarded. We will continue to follow the patient, make recommendations along the way. Time with Patient: Greater than 30
[2023-07-12] MEDS: bisacodyL 10 MG SUPP RECTAL SCH (11:29)
[2023-07-12 11:31] LABS: Glucose,Whole Blood 185 mg/dL (70-110)
--- NOTE | 2023-07-12 11:35 | PN ---
PROGRESS NOTE SUBJECTIVE: This is an 82-year-old lady with a significant past medical history of nicotine dependence, hypertension, hyperlipidemia, TIA who was seen by us in consultation for atrial fibrillation with a rapid ventricular rate, paroxysmal in nature. She also had a laparoscopic repair of paraesophageal hiatal hernia and yesterday she went back for a laparotomy, was found to have perforation in 2 areas in the stomach and underwent surgery by Dr. La. I saw her for atrial fib rapid ventricular rate and placed her on a small dose of IV Cardizem drip and she has since then maintained sinus rhythm. This morning she is still on a ventilator, hemodynamically stable, and she is on a small dose of Levophed which is being weaned. She is in sinus rhythm. PHYSICAL EXAMINATION: VITAL SIGNS: Stable. HEART: S1, S2. Short systolic murmur. LUNGS: Reveal ventilator-assisted breath sounds. ABDOMEN: Deferred. Rest of physical examination was not performed. Central nervous system assessment was not performed. RECOMMENDATIONS: I am recommending that we continue IV Cardizem at 5 mg/hour till 4 p.m. and if she has no further arrhythmia, to discontinue that. She was already on IV amiodarone as well in the past. Right now she is n.p.o., so we will only place her on 5 mg of Cardizem intravenously per hour and based on clinical course, we will make further recommendations. MMODL / IJN: [id number] /
--- NOTE | 2023-07-12 11:41 | P.PN ---
Subjective Progress Note Date: 07/12/23 CHIEF COMPLAINT: Recurrent paraesophageal hiatal hernia HISTORY OF PRESENT ILLNESS: Patient required to be taken back to the OR yesterday due to fluid fluid collection posterior's to the stomach noted on CT. Postop day #1 status post exploratory laparotomy, repair of gastric perforation 2, drainage of abdominal abscess and lysis of adhesions. Patient had chest tube placed intraoperatively by cardiothoracic surgeon for left-sided pleural effusion and possible left-sided pneumothorax. Patient currently intubated in the ICU. She is postop day #11 status post laparoscopic repair of paraesophageal hiatal hernia with mesh, lysis of adhesions and partial gastrectomy. Afebrile. They're weaning her off the Levophed. WBC is up from 12.5-19.2 Hgb 9.8 platelets 488 sodium is 142 potassium 3.9 creatinine 1.2 and magnesium 1.2 PHYSICAL EXAM: VITAL SIGNS: Reviewed. GENERAL: Intubated and sedated CHEST: Left-sided chest tube ABDOMEN: Soft. Nondistended. Midline incisional dressing clean dry and intact. JENI drains with serosanguineous output ASSESSMENT: 1. Gastric perforation status post exploratory laparotomy, repair of gastric perforation 2, drainage of abdominal abscess and lysis of adhesions 2. Recurrent paraesophageal hiatal hernia, Adhesions, GERD status post laparoscopic repair of paraesophageal hiatal hernia with mesh, lysis of adhesions and partial gastrectomy on 07/01/2023 3. A. fib with RVR 4. Altered mental status secondary to Metabolic encephalopathy 5. Possible TIA PLAN: -Continue ICU management -Continue pain management. Dilaudid adjusted to 1 mg every 3 hours as needed for pain -Continue antibiotics -Consult interventional radiology for PICC line placement for TPN -Consult dietitian for TPN for nutrition support -Okay to resume anticoagulation with IV heparin tomorrow without bolus from surgical standpoint Physician Training Director note has been reviewed by physician. Signing provider agrees with the documented findings, assessment, and plan of care. I have personally seen and examined the patient, reviewed the REPRODUCTIVE SURGEON /PAs history, exam and MDM and agree with the assessment and plan as written. Based on total visit time, I have performed more than 50% of the visit. As above: Patient stable on the ventilator. She has required low-dose presso rs. Unfortunately nasogastric tube fell out and was replaced with an oral gastric tube. Both JENI drain serosanguineous. NG with scant bilious. Blood cultures are positive. Continue antibiotic. Consider weaning tomorrow if stable. Objective - Vital Signs Vital signs: Vital Signs Temp 98 F 07/12/23 07:15 Pulse 76 07/12/23 09:00 Resp 10 L 07/12/23 09:00 BP 134/56 07/12/23 08:45 Pulse Ox 97 07/12/23 09:00 FiO2 50 07/12/23 08:51 Intake & Output 07/11/23 07/12/23 07/12/23 18:59 06:59 18:59 Intake Total 7204.634 3133.306 300.640 Output Total 1775 400 70 Balance -370.021 8518.306 230.640 Weight 67.6 kg 78.6 kg Intake: IV 1325 500 150 Piperacillin-Tazobactam 3 175 50 .375 gm In Sodium Chloride 0.9% 100 ml @ 25 mls/hr IVPB Q8HR [facility] Rx# :[id number] kvo 50 450 150 Intake, IV Titration 41.591 2633.306 150.640 Amount Diltiazem 125 mg In 35 5 100.417 Sodium Chloride 0.9% 100 ml @ 5 MG/HR 5 mls/hr IV .Q24H [facility] Rx#:[id number] Magnesium Sulfate-D5w Pmx 100 1 gm In Dextrose/Water 1 100ml.bag @ 100 mls/hr IVPB ONCE ONE Rx#: [id number] Norepinephrine 4 mg In 385.603 50.223 Sodium Chloride 0.9% 250 ml @ 0.03 MCG/KG/MIN 7. 727 mls/hr IV .Q24H [facility] Rx#:[id number] Sodium Chloride 0.9% 1, 1000 000 ml @ 999 mls/hr IV . Q1H1M [facility] Rx#:[id number] Sodium Chloride 0.9% 1, 1000 000 ml @ 999 mls/hr IV . Q1H1M [facility] Rx#:[id number] propofoL 1,000 mg In 6.591 142.703 Empty Bag 1 bag @ 15 MCG/ KG/MIN 6.084 mls/hr IV . [id number] [facility] Rx#:[id number] Output: Chest Tube Drainage 1000 130 Chest Tube Left 1000 130 Drainage 30 50 Left Abdomen 20 20 Right Abdomen 10 30 Urine 695 220 70 Estimated Blood Loss 50 Other: Voiding Method Indwelling Catheter Indwelling Catheter Indwelling Catheter ABP, PAP, CO, CI - Last Documented Arterial Blood Pressure 99/44 - Labs CBC & Chem 7: 07/12/23 04:35 07/12/23 16:40 Labs: Abnormal Lab Results - Last 24 Hours (Table) 07/11/23 07/11/23 07/11/23 Range/Units 16:14 16:41 16:41 WBC 12.5 H (3.8-10.6) k/uL RBC 3.69 L (3.80-5.40) m/uL Hgb 9.9 L (11.4-16.0) gm/dL Hct 32.3 L (34.0-46.0) % MCHC 30.6 L (31.0-37.0) g/dL Plt Count (150-450) k/uL Neutrophils # 11.4 H (1.3-7.7) k/uL Lymphocytes # 0.4 L (1.0-4.8) k/uL ABG pO2 (83-108) mmHg ABG Total CO2 (19-24) mmol/L ABG O2 Saturation (94-97) % Chloride 111 H (98-107) mmol/L BUN 29 H (7-17) mg/dL Creatinine 1.06 H (0.52-1.04) mg/dL Glucose 151 H (74-99) mg/dL POC Glucose (mg/dL) 158 H (70-110) mg/dL Calcium 7.5 L (8.4-10.2) mg/dL 07/11/23 07/12/23 07/12/23 Range/Units 17:00 04:35 04:35 WBC 19.2 H (3.8-10.6) k/uL RBC 3.50 L (3.80-5.40) m/uL Hgb 9.8 L (11.4-16.0) gm/dL Hct 30.7 L (34.0-46.0) % MCHC (31.0-37.0) g/dL Plt Count 488 H (150-450) k/uL Neutrophils # 17.9 H (1.3-7.7) k/uL Lymphocytes # 0.5 L (1.0-4.8) k/uL ABG pO2 62 L (83-108) mmHg ABG Total CO2 26 H (19-24) mmol/L ABG O2 Saturation 91.7 L (94-97) % Chloride 113 H (98-107) mmol/L BUN 35 H (7-17) mg/dL Creatinine 1.20 H (0.52-1.04) mg/dL Glucose 172 H (74-99) mg/dL POC Glucose (mg/dL) (70-110) mg/dL Calcium 7.4 L (8.4-10.2) mg/dL 07/12/23 Range/Units 05:54 WBC (3.8-10.6) k/uL RBC (3.80-5.40) m/uL Hgb (11.4-16.0) gm/dL Hct (34.0-46.0) % MCHC (31.0-37.0) g/dL Plt Count (150-450) k/uL Neutrophils # (1.3-7.7) k/uL Lymphocytes # (1.0-4.8) k/uL ABG pO2 111 H (83-108) mmHg ABG Total CO2 (19-24) mmol/L ABG O2 Saturation 97.8 H (94-97) % Chloride (98-107) mmol/L BUN (7-17) mg/dL Creatinine (0.52-1.04) mg/dL Glucose (74-99) mg/dL POC Glucose (mg/dL) (70-110) mg/dL Calcium (8.4-10.2) mg/dL Microbiology - Last 24 Hours (Table) 07/11/23 18:08 Gram Stain - Preliminary Abdomen 07/11/23 00:22 Blood Culture Gram Stain - Preliminary Blood
--- NOTE | 2023-07-12 12:01 | XR ---
EXAMINATION TYPE: XR chest 1V portable DATE OF EXAM: 07/12/2023 Comparison: 07/11/2023 Clinical History: 82-year-old female Tube placement Findings: ET and NG tubes are satisfactory. Left-sided chest tube remains in place. No appreciable pneumothorax . Heart remains mildly enlarged. I'm going small to moderate left pleural effusion with a patchy opac ity throughout the left mid and lower lung. Impression: Left-sided chest tube in place. No appreciable pneumothorax. Ongoing small to moderate left pleural e ffusion with adjacent atelectasis and/or consolidation. Interstitial changes throughout the remainder of the left lung also persist.
--- NOTE | 2023-07-12 14:18 | P.PN ---
Subjective Progress Note Date: 07/11/23 I am following-up with patient and she is accompanied with her daughter who is at bedside. Yesterday the patient had exploratory laparotomy with repair of gastric perforation, drainage of abdominal abscess and lysis of adhesion. The patient was intubated on a ventilator. Objective - Vital Signs Vital signs: Vital Signs Temp 98 F 07/12/23 07:15 Pulse 76 07/12/23 09:00 Resp 10 L 07/12/23 09:00 BP 134/56 07/12/23 08:45 Pulse Ox 97 07/12/23 09:00 FiO2 50 07/12/23 13:45 Intake & Output 07/11/23 07/12/23 07/12/23 18:59 06:59 18:59 Intake Total 9583.075 3627.306 465.726 Output Total 1775 400 70 Balance -593.581 5862.306 395.726 Weight 67.6 kg 78.6 kg 78.6 kg Intake: IV 1325 500 150 Piperacillin-Tazobactam 3 175 50 .375 gm In Sodium Chloride 0.9% 100 ml @ 25 mls/hr IVPB Q8HR [facility] Rx# :[id number] kvo 50 450 150 Intake, IV Titration 41.591 2633.306 315.726 Amount Diltiazem 125 mg In 35 5 100.417 Sodium Chloride 0.9% 100 ml @ 5 MG/HR 5 mls/hr IV .Q24H [facility] Rx#:[id number] Magnesium Sulfate-D5w Pmx 100 1 gm In Dextrose/Water 1 100ml.bag @ 100 mls/hr IVPB ONCE ONE Rx#: [id number] Norepinephrine 4 mg In 385.603 90.925 Sodium Chloride 0.9% 250 ml @ 0.03 MCG/KG/MIN 7. 727 mls/hr IV .Q24H [facility] Rx#:[id number] Sodium Chloride 0.9% 1, 1000 000 ml @ 999 mls/hr IV . Q1H1M ONE Rx#:[id number] Sodium Chloride 0.9% 1, 1000 000 ml @ 999 mls/hr IV . Q1H1M ONE Rx#:[id number] propofoL 1,000 mg In 6.591 142.703 124.384 Empty Bag 1 bag @ 15 MCG/ KG/MIN 6.084 mls/hr IV . [id number] [facility] Rx#:[id number] Output: Chest Tube Drainage 1000 130 Chest Tube Left 1000 130 Drainage 30 50 Left Abdomen 20 20 Right Abdomen 10 30 Urine 695 220 70 Estimated Blood Loss 50 Other: Voiding Method Indwelling Catheter Indwelling Catheter Indwelling Catheter ABP, PAP, CO, CI - Last Documented Arterial Blood Pressure 99/44 - Exam General: Lying in bed and does not appear in acute distress. Lung: Intubated on vent. Neuro- Very limited. Is on IV Propofol. Pupils are pinpoint bilaterally. No facial weakness. - Labs CBC & Chem 7: 07/12/23 04:35 07/12/23 04:35 Labs: Abnormal Lab Results - Last 24 Hours (Table) 07/11/23 07/11/23 07/11/23 Range/Units 16:14 16:41 16:41 WBC 12.5 H (3.8-10.6) k/uL RBC 3.69 L (3.80-5.40) m/uL Hgb 9.9 L (11.4-16.0) gm/dL Hct 32.3 L (34.0-46.0) % MCHC 30.6 L (31.0-37.0) g/dL Plt Count (150-450) k/uL Neutrophils # 11.4 H (1.3-7.7) k/uL Lymphocytes # 0.4 L (1.0-4.8) k/uL ABG pO2 (83-108) mmHg ABG Total CO2 (19-24) mmol/L ABG O2 Saturation (94-97) % Chloride 111 H (98-107) mmol/L BUN 29 H (7-17) mg/dL Creatinine 1.06 H (0.52-1.04) mg/dL Glucose 151 H (74-99) mg/dL POC Glucose (mg/dL) 158 H (70-110) mg/dL Calcium 7.5 L (8.4-10.2) mg/dL 07/11/23 07/12/23 07/12/23 Range/Units 17:00 04:35 04:35 WBC 19.2 H (3.8-10.6) k/uL RBC 3.50 L (3.80-5.40) m/uL Hgb 9.8 L (11.4-16.0) gm/dL Hct 30.7 L (34.0-46.0) % MCHC (31.0-37.0) g/dL Plt Count 488 H (150-450) k/uL Neutrophils # 17.9 H (1.3-7.7) k/uL Lymphocytes # 0.5 L (1.0-4.8) k/uL ABG pO2 62 L (83-108) mmHg ABG Total CO2 26 H (19-24) mmol/L ABG O2 Saturation 91.7 L (94-97) % Chloride 113 H (98-107) mmol/L BUN 35 H (7-17) mg/dL Creatinine 1.20 H (0.52-1.04) mg/dL Glucose 172 H (74-99) mg/dL POC Glucose (mg/dL) (70-110) mg/dL Calcium 7.4 L (8.4-10.2) mg/dL 07/12/23 07/12/23 Range/Units 05:54 11:29 WBC (3.8-10.6) k/uL RBC (3.80-5.40) m/uL Hgb (11.4-16.0) gm/dL Hct (34.0-46.0) % MCHC (31.0-37.0) g/dL Plt Count (150-450) k/uL Neutrophils # (1.3-7.7) k/uL Lymphocytes # (1.0-4.8) k/uL ABG pO2 111 H (83-108) mmHg ABG Total CO2 (19-24) mmol/L ABG O2 Saturation 97.8 H (94-97) % Chloride (98-107) mmol/L BUN (7-17) mg/dL Creatinine (0.52-1.04) mg/dL Glucose (74-99) mg/dL POC Glucose (mg/dL) 185 H (70-110) mg/dL Calcium (8.4-10.2) mg/dL Microbiology - Last 24 Hours (Table) 07/11/23 18:08 Gram Stain - Preliminary Abdomen 07/11/23 00:22 Blood Culture Gram Stain - Preliminary Blood Assessment and Plan Assessment: * Status post day 1 respiratory lobe are to me, repair of gastric perforation, drainage abdominal abscess and lysis of adhesion. * Altered mental status, likely due to toxic metabolic encephalopathy--mentation improving but today unable to assess mentation since intubated on ventilator and is on IV Propofol. * There is suspicious for TIA, symptoms resolved * New onset atrial fibrillation with RVR * Recurrent paraesophageal hiatal hernia, Adhesions, GERD, status post laparoscopic repair of the paraesophageal hiatal hernia 07/01/2023. * Probable pneumonia * Pleural effusion, probably cardiogenic in nature. * Hypernatremia, due to dehydration, now resolved * Hypokalemia, resolved * Acute kidney injury, resolved * Hypertension * Hyperlipidemia * Chronic back pain * History of back surgery Plan: * Pulmonary medicine on board for breathing difficulty and pleural effusion. * Appreciate ID input. RSV, influenza and hagen virus PCR negative. * Also on Seroquel 12.5 mg twice a day when necessary for agitation * CT head revealed chronic appearing periventricular white matter ischemic changes. 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 I personally reviewed CT head, agree with the findings, although appears patient has old lacune's and bilateral basal ganglia. * Carotid Doppler 11/02/2021 revealed no evidence of hemodynamically significant stenosis, with antegrade flow in both vertebral arteries. * EEG was abnormal due to background slowing of moderate to severe degree. This is suggestive of generalized cerebral dysfunction as can be seen with toxic metabolic encephalopathy or related to diffuse structural brain abnormality. Clinical correlation is recommended. No epileptiform activity was seen. * CT of abdomen and pelvis revealed right upper lung peripheral groundglass opacities which could represent atypical pneumonia. Small left and trace right pleural effusions. No other definitive evidence for source of infectious process. No evidence of acute infectious process within the abdomen or pelvis. Colonic diverticulosis. * On Eliquis 5 mg twice a day for stroke prevention related to atrial fibrillation * Patient's all focal neurological symptoms have resolved. Current NIH stroke scale is 0. 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 No need to repeat MRA/CTA. * 2-D echo revealed grossly normal left-ventricular systolic function with EF 55%. Mild right ventricle dilation. Mild MR, mild biatrial dilation. Sclerotic aortic valve with no stenosis. Left atrial mild dilation. * B12 1816, folate 7.60. On folate replacement. TSH normal 0.701. * Medical management of the various conditions as per IM. * The plan is discussed with patient's daughter who is at bedside. * Will follow-up with patient sporadically. Time with Patient: Less than 30
[2023-07-12] MEDS: HYDROmorphone 1 MG/ML 1 ML SYRINGE IVP PRN ×3 (14:38→21:35)
[2023-07-12] MEDS ORDERED: DEXTROSE 50% SYRINGE 50 ML IVP PRN ×2 (14:48)
[2023-07-12] MEDS ORDERED: INSULIN ASPART (NovoLOG) 100 UNIT/ML VIAL SQ SCH (15:00)
--- NOTE | 2023-07-12 15:43 | XR ---
EXAMINATION TYPE: XR abdomen 1V DATE OF EXAM: 07/12/2023 Comparison: 07/10/2023 Clinical History: 82-year-old female OG placement Findings: Midline skin pierre. Lower lumbar fusion hardware. NG tube noted. The tube appears appropriate in po sition and the left mid abdomen. Cholecystectomy clips. Nonspecific bowel gas pattern with scattered colonic air. Surgical drains are present in the upper abdomen. A right-sided femoral line is noted. Impression: The OG tube appears appropriately positioned. Surgical drains in the upper abdomen. Midline skin stap les. Nonspecific bowel gas pattern.
--- NOTE | 2023-07-12 15:44 | US ---
EXAMINATION TYPE: US venous doppler duplex UE LT DATE OF EXAM: 07/12/2023 COMPARISON: NONE CLINICAL INDICATION: Female, 82 years old with history of Edema; edema SIDE PERFORMED: Left arm Left Arm: Very limited portable exam on ICU patient. Unable to visualize cephalic or basilic vein d ue to edema and arm positioning. No evidence of DVT in veins imaged. IMPRESSION: There is soft tissue edema and we are unable to adequately visualize the cephalic or basilic vein for assessment. No evidence for DVT within the left upper extremity.
[2023-07-12 17:08] LABS: ALT 26 U/L (4-34); AST 28 U/L (14-36); African American GFR (CKD) 41 (>60 ml/min/1.73 sqM); Albumin 1.9 g/dL (3.5-5.0); Alkaline Phosphatase 150 U/L (38-126); Anion Gap 9 mmol/L; Blood Urea Nitrogen 37 mg/dL (7-17); Calcium 7.5 mg/dL (8.4-10.2); Carbon Dioxide 20 mmol/L (22-30); Chloride 115 mmol/L (98-107); Glucose 183 mg/dL (74-99); Magnesium 2.3 mg/dL (1.6-2.3); Non-African American GFR(CKD) 36 (>60 ml/min/1.73 sqM); Phosphorus 4.9 mg/dL (2.5-4.5); Potassium 4.2 mmol/L (3.5-5.1); Sodium 144 mmol/L (137-145); Total Bilirubin 0.5 mg/dL (0.2-1.3); Total Protein 4.4 g/dL (6.3-8.2)
[2023-07-12 17:25] LABS: Glucose,Whole Blood 190 mg/dL (70-110)
[2023-07-12] MEDS: INSULIN ASPART (NovoLOG) 100 UNIT/ML VIAL SQ SCH ×2 (17:31→23:57)
[2023-07-12] MEDS ORDERED: MVI, ADULT NO.4 WITH VIT K 10 ML, TRACE (CONC-1ML/DOSE) 1 ML, SODIUM ACETATE 30 MEQ, PO... IV SCH ×7 (20:00)
--- NOTE | 2023-07-12 22:26 | P.PN ---
Subjective Progress Note Date: 07/11/23 Principal diagnosis: Reason for follow-up is abnormal CT chest concerning for possible pneumonia Patient is a 82-year-old female with a past medical history living with CVA TIA reflux hyperlipidemia hypertension patient was electively admitted to the hospital on 07/01/2023 in this patient with recurrent paraesophageal hiatal hernia patient is status post laparoscopic repair of the paraesophageal hiatal hernia with absorbable mesh lysis of adhesion and partial gastrectomy, patient did have a postoperative A. fib with RVR problem with her mentation requiring CT of the abdominal pelvis, did have some lung parenchymal groundglass opacity from previous infectious disease consultation On today's evaluation that is 07/11/2023 patient remains to be afebrile patient has been transferred to the ICU because of hypotension weakness patient requiring pressor support and is requiring 8 L nasal cannula oxygen patient is lethargic unable to provide any history no further vomiting or other changes reported by nursing staff patient did not provide any history. Patient white count is down to 12.5, creatinine 1.06 Objective - Vital Signs Vital signs: Vital Signs Temp 97.9 F 07/11/23 04:00 Pulse 61 07/11/23 08:01 Resp 21 07/11/23 07:00 BP 111/56 07/11/23 07:00 Pulse Ox 94 L 07/11/23 07:00 FiO2 Intake & Output 07/10/23 07/11/23 07/11/23 18:59 06:59 18:59 Intake Total 0 160 90 Output Total 0 400 0 Balance 0 -240 90 Intake: IV 160 90 Piperacillin-Tazobactam 3 100 50 .375 gm In Sodium Chloride 0.9% 100 ml @ 25 mls/hr IVPB Q8HR [facility] Rx# :[id number] kvo 60 40 Oral 0 Output: Gastric Drainage 0 Urine 400 0 Other: Voiding Method Diaper External Catheter # Voids 1 - Exam GENERAL DESCRIPTION: An elderly female lying in bed in no distress RESPIRATORY SYSTEM: Unlabored breathing , diminished breath sounds HEART: S1 S2 regular rate and rhythm , ABDOMEN: Soft , no tenderness EXTREMITIES: No edema feet - Labs CBC & Chem 7: 07/12/23 04:35 07/12/23 16:40 Labs: Abnormal Lab Results - Last 24 Hours (Table) 07/10/23 07/10/23 07/11/23 Range/Units 23:28 23:58 00:22 WBC 15.4 H (3.8-10.6) k/uL Hgb 11.1 L (11.4-16.0) gm/dL Neutrophils # (1.3-7.7) k/uL Lymphocytes # (1.0-4.8) k/uL D-Dimer (<0.60) mg/L FEU ABG pO2 (83-108) mmHg ABG HCO3 (21-25) mmol/L ABG Total CO2 (19-24) mmol/L ABG O2 Saturation (94-97) % Chloride (98-107) mmol/L BUN (7-17) mg/dL Glucose (74-99) mg/dL POC Glucose (mg/dL) 142 H 145 H (70-110) mg/dL Calcium (8.4-10.2) mg/dL ALT (4-34) U/L Alkaline Phosphatase (38-126) U/L Troponin I (0.000-0.034) ng/mL Total Protein (6.3-8.2) g/dL Albumin (3.5-5.0) g/dL 07/11/23 07/11/23 07/11/23 Range/Units 00:22 00:22 00:22 WBC (3.8-10.6) k/uL Hgb (11.4-16.0) gm/dL Neutrophils # (1.3-7.7) k/uL Lymphocytes # (1.0-4.8) k/uL D-Dimer 9.00 H (<0.60) mg/L FEU ABG pO2 (83-108) mmHg ABG HCO3 (21-25) mmol/L ABG Total CO2 (19-24) mmol/L ABG O2 Saturation (94-97) % Chloride 108 H (98-107) mmol/L BUN 18 H (7-17) mg/dL Glucose 155 H (74-99) mg/dL POC Glucose (mg/dL) (70-110) mg/dL Calcium 8.3 L (8.4-10.2) mg/dL ALT 47 H (4-34) U/L Alkaline Phosphatase 214 H (38-126) U/L Troponin I 0.096 H* (0.000-0.034) ng/mL Total Protein 4.8 L (6.3-8.2) g/dL Albumin 2.2 L (3.5-5.0) g/dL 07/11/23 07/11/23 07/11/23 Range/Units 03:40 03:40 06:07 WBC 13.0 H (3.8-10.6) k/uL Hgb 11.0 L (11.4-16.0) gm/dL Neutrophils # 11.8 H (1.3-7.7) k/uL Lymphocytes # 0.5 L (1.0-4.8) k/uL D-Dimer (<0.60) mg/L FEU ABG pO2 (83-108) mmHg ABG HCO3 (21-25) mmol/L ABG Total CO2 (19-24) mmol/L ABG O2 Saturation (94-97) % Chloride 108 H (98-107) mmol/L BUN 20 H (7-17) mg/dL Glucose 147 H (74-99) mg/dL POC Glucose (mg/dL) (70-110) mg/dL Calcium 8.2 L (8.4-10.2) mg/dL ALT (4-34) U/L Alkaline Phosphatase (38-126) U/L Troponin I 0.144 H* (0.000-0.034) ng/mL Total Protein (6.3-8.2) g/dL Albumin (3.5-5.0) g/dL 07/11/23 Range/Units 07:39 WBC (3.8-10.6) k/uL Hgb (11.4-16.0) gm/dL Neutrophils # (1.3-7.7) k/uL Lymphocytes # (1.0-4.8) k/uL D-Dimer (<0.60) mg/L FEU ABG pO2 69 L (83-108) mmHg ABG HCO3 27 H (21-25) mmol/L ABG Total CO2 29 H (19-24) mmol/L ABG O2 Saturation 93.2 L (94-97) % Chloride (98-107) mmol/L BUN (7-17) mg/dL Glucose (74-99) mg/dL POC Glucose (mg/dL) (70-110) mg/dL Calcium (8.4-10.2) mg/dL ALT (4-34) U/L Alkaline Phosphatase (38-126) U/L Troponin I (0.000-0.034) ng/mL Total Protein (6.3-8.2) g/dL Albumin (3.5-5.0) g/dL Microbiology - Last 24 Hours (Table) 07/07/23 14:07 Blood Culture - Preliminary Blood Assessment and Plan (1) Abnormal CT of the chest Current Visit: Yes Status: Acute Code(s): R93.89 - ABNORMAL FINDINGS ON DX IMAGING OF OTH BODY STRUCTURES SNOMED Code(s): 61416578320553217 (2) Leukocytosis Current Visit: Yes Status: Acute Code(s): D72.829 - ELEVATED WHITE BLOOD CELL COUNT, UNSPECIFIED SNOMED Code(s): 770579259 (3) Pneumonia Current Visit: Yes Status: Acute Code(s): J18.9 - PNEUMONIA, UNSPECIFIED ORGANISM SNOMED Code(s): 639737252 Plan: 1-Patient is 82-year-old female electively admitted to hospital status post paraesophageal hernia repair with abdominal mesh now with worsening of her clinical condition and concerning for fluid collection posterior to the stomach concerning for possible gastric perforation and intra-abdominal abscess 2-patient is scheduled for laparotomy and surgical drainage of this abscess this afternoon at which point culture should be obtained 3-we will continue patient on Zosyn adjust antibiotic further on the basis of culture report Family at the bedside questions were answered Dictation was produced using [employer] dictation software. please excuse any grammatical, word or spelling errors. Time with Patient: Greater than 30
--- NOTE | 2023-07-12 22:29 | P.PN ---
Subjective Progress Note Date: 07/12/23 Patient is evaluated today sitting up in the chair on medical floor. Heart rate is elevated this morning in the 150s irregular pending EKG and telemetry has also been ordered. Further recommendations pending the EKG. Patient denies any chest pain, no shortness of breath, states she feels anxious. Currently NPO. She is postoperative day #3 paraesophageal hernia repair. Has been receiving D5 1/2 NS at 75 mls/hr. Received a dose of IV lasix around 6am, BNP is elevated at 3460. 07/05/2023 Patient evaluated on the stepdown unit today currently postoperative day #4 paraesophageal hernia repair. Having 10/10 abdominal discomfort per patient however passing gas and having increased bowel sounds. Receiving IV dilaudid for pain management. On IV cardizem at 5 will be transitioned to metoprolol and cleared for anticoagulation by surgery was started on eliquis. Patient had complaints of left sided weakness which strength appears equal on examination. Had brain CT showing degenerative and remote ischemic change with no evidence of acute hemorrhage or mass effect. 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 Neurology was consulted. Chest xray follow up yesterday reveals increasing air underneath the right hemidiaphragm could reflect colonic interposition. Pneumoperitoneum not excluded. Left basilar opacity may reflect atelectasis or pneumonia. Patient was receiving IV fluids which were stopped due to proBNP of over 7000. Received second dose of IV lasix. Labs today showing sodium 147, potassium 2.9. 07/06/2023 Patient is evaluated today on the stepdown unit currently postoperative day #5 paraesophageal hernia repair. Patient today is alert x 3 however confused thrashing around. Not complaining of pain. Has been started on full liquid diet and tolerating did have a large bowel movement. Abdomen soft. Remains on IV zosyn. 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 [place] patient had a TIA. No left sided weakness noted today. Possible left facial droop however difficult to assess due to patient not being able to sit still. Labs today reveal sodium 148, potassium 3.6, BUN 41, creatinine 1.33. TSH normal 0.701. Patient is urinating had a bladder scan today no retention noted. Echocardiogram was a technically difficult study however LV function appears grossly normal at 55%, mild MR and mild biatrial dilation. 07/07/2023 Patients mentation has not much improved nursing reports continued slurred speech patient unable to swallow pills. Neurology following, patient had repeat brain CT showing chronic appearing periventricular white matter ischemic changes. Small old lacunar infarct in the basal ganglion. She is postoperative day #6 paraesophageal hernia repair. Had new onset atrial fibrillation with RVR suspected TIA. Underwent EEG today showing toxic metabolic encephalopathy and moderate to severe background slowing. No epileptiform activity noted. Patient with some scattered wheezing today and chest xray was completed which reveals a left lower lobe infiltrate and or atelectasis. Patient does have IS at bedside has not been using. Will order ST consulation rule out aspiration. Recommend at this time conservative management and avoid narcotics if possible. Patient continues on D5 water at 75 mls/hr and sodium has normalized to 145, potassium 3.3, BUN 46, creatinine 1.13. B12 1816 and folate 7.60. Patient remains afebrile, heart rate of 72, blood pressure 124/71, 96% on 2L of oxygen. 07/08/2023 Patient relates a with family at the bedside. Mentation has improved she is more awake alert and less confused. Currently postoperative day #7 paraesophageal hernia repair. Did require IV amiodarone overnight due to elevated heart rate up into the 150s. Cardiology has transitioned her to oral amiodarone today her heart rate is in the 70-80s. Anticoagulation has been resu med today. Patient remains on D5 water at 75 mls/hr. Also on IV zosyn since post surgical. Procalcitonin is elevated at 0.60. Chest xray showing left lower lobe infiltrate and or atelectasis. Her urinalysis was abnormal small leukocyte esterase, cloudy urine. 07/09/2023 Patient is postoperative day #8 paraesophageal hernia repair. Patient has been transitioned to IV amiodarone at half rate and will continue; with plans to transition to oral amiodarone today. Heart rate has improved for the afib RVR. Surgery has okay the eliquis and she continues on 5 mg BID of eliquis. Patient has tolerated increased diet she is not complaining of much abdominal pain having some hypoactive bowel sounds she has not been able to get out of bed over the last few days due to her altered mentation. Had an abdomen pelvis CT done showing right upper lobe left lung which could represent atypical pneumonia. Sm all left and trace right pleural effusions no other definitive evidence for source of infectious process. There is no evidence for acute infectious process within the abdomen or pelvis. There is colonic diverticulosis. Today she has scattered audible wheezing today. She continues on duonebs QID and scheduled and remains on oxygen support. Family at the bedside updated on plan of care. 07/10/2023 Patient is postoperative day #9 paraesophageal hernia repair. Patient's bowel sounds were hypoactive yesterday and did vomit is morning per nursing the vomit was brown in color. She had an NG tube placed abdominal x-ray was done which shows stable placement of NG tube. Additionally she remains on nasal cannula oxygen support with scattered wheezing. She did not tolerate prior diuresis and went in to acute kidney injury and for this reason she has been maintained on IV fluids. Her proBNP is still elevated at 4980. Patient had a follow-up chest x- ray showing increased haziness in the left lung correlate with serum BNP given the patient's cardiomyopathy related to rule out congestive heart failure. There is pulmonary vascular congestion. There is no evidence of pleural effusion focal consolidation or pneumothorax. We did do a chest ultrasound yesterday which does reveal a 8.3 cm left pleural effusion. Pulmonary was consulted for further evaluation and given patient a dose of IV Lasix today. Eliquis is now being held for a possible thoracentesis. Patient does have worsening white count 19.1 today, hemoglobin stable at 11.0, sodium 140, potassium 3.8, BUN of 14, creatinine 0.55. Viral panel is negative for influenza RSV and Covid. 07/11/2023 Patient is postoperative day #10 paraesophageal hernia repair. She has been maintained on the stepdown unit. In sinus mechanism and has been transitioned to oral amiodarone. Eliquis has been placed on hold for possible thoracentesis. Fluids were held, patient received a dose of IV lasix yesterday. Had an increase in white count up to 19. Repeat abdominal CT was done showing interval development of a fluid collection posterior to the stomach measuring 4 cm AP by 9.4 cm transverse. Moderate left and tiny right pleural effusions with associated atelectasis. Overnight patient developed acute chest pain, was found to have elevated D Dimer and also had troponin elevation, did have drop in BP down to 70/50s. She was moved to the intensive care unit. Chest xray continues to show moderate to large pleural effusion. Patient was noted to have left pneumothorax, left lower lobe infiltrate correlate for CHF moderate left pleural effusion is cardiomegaly, and left pleural effusion noted on follow up chest xray. Venous doppler negative for DVT. Labs today showing sodium 141, potassium 3.8, BUN 20, creatinine 0.80. Elevated D dimer of 9.00. Family at bedside was updated discussed need for chest tub placement and exploratory laporotomy. No further questions at this time. Daughter asking what next steps are if they don't want aggressive measures hospice care was discussed. 07/12/2023 Patient is evaluated postoperative day #11 paraesophageal hernia repair and postoperative day #1 repair of gastric perforation x 2 and drainage of abdominal abscess. Came back to the ICU postoperatively on the mechanical ventilator antonia ins intubated and sedated. Patient also had placement of left sided chest tube by cardiothoracic team. Chest xray this AM reveals left sided chest tube in place. No appreciable pneumothorax. Ongoing small to moderate left pleural effusion with adjacent atelectasis or consolidation. Interstitial changes throughout the remainder of the left lung also persist. Patient had 1070 mls of drainage from the chest tube when it was placed. Blood cultures are showing gram positive cocci. White count today 19.2, hgb 9.8, BUN 35, creatinine 1.20, magnesium 2.2, potassium 3.9. D-Dimer was done and elevated at 9 unable to get the chest CTA currently had venous doppler which is negative for DVT bilaterally. She is on combination of IV daptomycin and zosyn for the bacteremia. On IV solumedrol. On levophed running at 20.6 mls/hr. She is getting TPN. Review of Systems Unable to complete currently intubated and sedated. All inpatient medications were reviewed and appropriate changes in these medications as dictated in the interval history and assessment and plan. PHYSICAL EXAMINATION: GENERAL: The patient is sedated and intubated on the mechanical ventilator. Well developed, well nourished. HEENT: Pupils are round and equally reacting to light. EOMI. No scleral icterus. No conjunctival pallor. Normocephalic, atraumatic. No pharyngeal erythema. No thyromegaly. CARDIOVASCULAR: S1 and S2 present. No murmurs, rubs, or gallops. Tachycardic irregular. PULMONARY: Faint scattered wheezing ABDOMEN: Soft, nontender, nondistended, normoactive bowel sounds. No palpable organomegaly. Post surgical well approximated midline incision as well as laproscopic incisions clean dry. Chest tube in place. JENI drain in place serosanguineous drainage. MUSCULOSKELETAL: No joint swelling or deformity. EXTREMITIES: No cyanosis, clubbing, or pedal edema. NEUROLOGICAL: Unable to assess. SKIN: No rashes. Assessment -Recurrent paraesophageal hernia postoperative day #11 laproscopic surgical repair with mesh and partial gastrectomy -Postoperative day #1 repair of gastric perforation x 2 and drainage of abdominal abscess and lysis of adhesions with JENI drain -Left sided pleural effusion and Interval development of left pneumothorax status post chest tube placement with over 1 L of fluid drained initially pleural fluid sent for cytology. -Enterococcus Faecium bacteremia possibly VRE on course of IV daptomycin and IV zosyn -Septic shock due to gastric perforation requiring vasopressor support -New onset atrial fibrillation with RVR treated with IV cardizem/IV amiodarone patient is currently maintaining sinus rhythm with PVCs/PACs -COPD with mild acute excerbation receiving systemic steroids -Acute kidney injury likely ATN/from sepsis -Hypokalemia normalized -Hypernatremia, resolved -Altered mental status likely acute metabolic encephalopathy from DANIEL and hypernatremia/ TIA neurology following. Patient is now intubated and sedated. -Pt reports left sided weakness neurology consultation patient had brain CT likely due to TIA and symptoms have resolved. On statin therapy. and was placed on eliquis 5 mg BID. -Leukocytosis worsening -Troponin elevation rule out ACS cardiology following. -Hypertension -Hyperlipidemia -Restless leg syndrome -Gastroesophageal reflux disease -Anxiety/Depression -Chronic back pain with prior lumbar decompression and fusion -Former nicotine use -Hx of TIA GI prophylaxis DVT prophylaxis Full Code Plan Heart rate in sinus mechanism at this time, patient on oral amiodarone and oral metoprolol, patient keeps going in and out of afib with rapid ventricular rate and discussed with cardiology who is recommending patient be continued on IV ca rdizem at 5 ml/hr plans to wean off around 4pm Continue on IV daptomycin and IV zosyn and follow cultures Cardiothoracic has been consulted for evaluation and chest tube placement Eliquis remains on hold and patient is ok per surgery to resume IV heparin tomorrow for anticoagulation with no bolus. Repeat labs in AM Consult placed to nephrology for the DANIEL The impression and plan of care has been dictated by Teresita Jones, Nurse Practitioner as directed. Dr. Samra MD I have performed a history and physical examination and medical decision making of this patient, discussed the same with the dictator, and agree with the dictators assessment and plan as written, documented as a scribe. Based on total visit time, I have performed more than 50% of this visit. Objective - Vital Signs Vital signs: Vital Signs Temp 98.6 F 07/12/23 20:00 Pulse 89 07/12/23 21:30 Resp 20 07/12/23 21:30 BP 112/47 07/12/23 21:30 Pulse Ox 99 07/12/23 21:30 FiO2 50 07/12/23 20:14 Intake & Output 07/12/23 07/12/23 07/13/23 06:59 18:59 06:59 Intake Total 3133.306 787.834 158.890 Output Total 400 485 130 Balance 2733.306 302.834 28.890 Weight 78.6 kg 78.6 kg Intake: IV 500 375 20 Piperacillin-Tazobactam 3 50 125 .375 gm In Sodium Chloride 0.9% 100 ml @ 25 mls/hr IVPB Q8HR [facility] Rx# :[id number] kvo 450 250 20 Intake, IV Titration 2633.306 412.834 138.890 Amount Diltiazem 125 mg In 5 100.417 Sodium Chloride 0.9% 100 ml @ 5 MG/HR 5 mls/hr IV .Q24H [facility] Rx#:[id number] Magnesium Sulfate-D5w Pmx 100 1 gm In Dextrose/Water 1 100ml.bag @ 100 mls/hr IVPB ONCE ONE Rx#: [id number] Norepinephrine 4 mg In 385.603 133.852 69.025 Sodium Chloride 0.9% 250 ml @ 0.03 MCG/KG/MIN 7. 727 mls/hr IV .Q24H [facility] Rx#:[id number] Sodium Chloride 0.9% 1, 1000 000 ml @ 999 mls/hr IV . Q1H1M [facility] Rx#:[id number] Sodium Chloride 0.9% 1, 1000 000 ml @ 999 mls/hr IV . Q1H1M [facility] Rx#:[id number] propofoL 1,000 mg In 142.703 178.565 69.865 Empty Bag 1 bag @ 15 MCG/ KG/MIN 6.084 mls/hr IV . [id number] [facility] Rx#:[id number] Output: Chest Tube Drainage 130 Chest Tube Left 130 Drainage 50 25 Left Abdomen 20 5 Right Abdomen 30 20 Urine 220 460 130 Other: Voiding Method Indwelling Catheter Indwelling Catheter ABP, PAP, CO, CI - Last Documented Arterial Blood Pressure 100/35 - Labs CBC & Chem 7: 07/12/23 04:35 07/12/23 16:40 Labs: Abnormal Lab Results - Last 24 Hours (Table) 07/12/23 07/12/23 07/12/23 Range/Units 04:35 04:35 05:54 WBC 19.2 H (3.8-10.6) k/uL RBC 3.50 L (3.80-5.40) m/uL Hgb 9.8 L (11.4-16.0) gm/dL Hct 30.7 L (34.0-46.0) % Plt Count 488 H (150-450) k/uL Neutrophils # 17.9 H (1.3-7.7) k/uL Lymphocytes # 0.5 L (1.0-4.8) k/uL ABG pO2 111 H (83-108) mmHg ABG O2 Saturation 97.8 H (94-97) % Chloride 113 H (98-107) mmol/L Carbon Dioxide (22-30) mmol/L BUN 35 H (7-17) mg/dL Creatinine 1.20 H (0.52-1.04) mg/dL Glucose 172 H (74-99) mg/dL POC Glucose (mg/dL) (70-110) mg/dL Calcium 7.4 L (8.4-10.2) mg/dL Phosphorus (2.5-4.5) mg/dL Alkaline Phosphatase (38-126) U/L Total Protein (6.3-8.2) g/dL Albumin (3.5-5.0) g/dL 07/12/23 07/12/23 07/12/23 Range/Units 11:29 16:40 17:24 WBC (3.8-10.6) k/uL RBC (3.80-5.40) m/uL Hgb (11.4-16.0) gm/dL Hct (34.0-46.0) % Plt Count (150-450) k/uL Neutrophils # (1.3-7.7) k/uL Lymphocytes # (1.0-4.8) k/uL ABG pO2 (83-108) mmHg ABG O2 Saturation (94-97) % Chloride 115 H (98-107) mmol/L Carbon Dioxide 20 L (22-30) mmol/L BUN 37 H (7-17) mg/dL Creatinine 1.39 H (0.52-1.04) mg/dL Glucose 183 H (74-99) mg/dL POC Glucose (mg/dL) 185 H 190 H (70-110) mg/dL Calcium 7.5 L (8.4-10.2) mg/dL Phosphorus 4.9 H (2.5-4.5) mg/dL Alkaline Phosphatase 150 H (38-126) U/L Total Protein 4.4 L (6.3-8.2) g/dL Albumin 1.9 L (3.5-5.0) g/dL Microbiology - Last 24 Hours (Table) 07/12/23 00:39 Gram Stain - Preliminary Sputum 07/07/23 14:07 Blood Culture - Final Blood 07/11/23 18:08 Gram Stain - Preliminary Abdomen 07/11/23 00:22 Blood Culture Gram Stain - Preliminary Blood Assessment and Plan Time with Patient: Less than 30
--- NOTE | 2023-07-12 22:30 | P.PN ---
Subjective Progress Note Date: 07/12/23 Principal diagnosis: Reason for follow-up is Intra-abdominal abscess and VRE bacteremia Patient is a 82-year-old female with a past medical history living with CVA TIA reflux hyperlipidemia hypertension patient was electively admitted to the hospital on 07/01/2023 in this patient with recurrent paraesophageal hiatal hernia patient is status post laparoscopic repair of the paraesophageal hiatal hernia with absorbable mesh lysis of adhesion and partial gastrectomy, patient did have a postoperative A. fib with RVR problem with her mentation requiring CT of the abdominal pelvis, did have some lung parenchymal groundglass opacity from previous infectious disease consultation, Patient was taken to the OR evening of 07/11/2023, patient is status post expiratory laparotomy repair of gastric perforation x 2 and drainage of abdominal abscess along with lysis of adhesion. On today's evaluation that is 07/12/2023 the patient is afebrile this morning patient is a hemodynamically stable patient remains to be intubated on the vent postsurgery FiO2 is currently down to 50% no significant purulent secretions through the ET or any other changes reported by the nursing staff. Patient white count is up to 19.2, creatinine is 1.39 blood cultures came back positive with VRE Objective - Vital Signs Vital signs: Vital Signs Temp 98 F 07/12/23 07:15 Pulse 76 07/12/23 09:00 Resp 10 L 07/12/23 09:00 BP 134/56 07/12/23 08:45 Pulse Ox 97 07/12/23 09:00 FiO2 50 07/12/23 08:51 Intake & Output 07/11/23 07/12/23 07/12/23 18:59 06:59 18:59 Intake Total 9508.796 4063.306 400.998 Output Total 1775 400 70 Balance -667.993 4247.306 330.998 Weight 67.6 kg 78.6 kg Intake: IV 1325 500 150 Piperacillin-Tazobactam 3 175 50 .375 gm In Sodium Chloride 0.9% 100 ml @ 25 mls/hr IVPB Q8HR [facility] Rx# :[id number] kvo 50 450 150 Intake, IV Titration 41.591 2633.306 250.998 Amount Diltiazem 125 mg In 35 5 100.417 Sodium Chloride 0.9% 100 ml @ 5 MG/HR 5 mls/hr IV .Q24H [facility] Rx#:[id number] Magnesium Sulfate-D5w Pmx 100 1 gm In Dextrose/Water 1 100ml.bag @ 100 mls/hr IVPB ONCE ONE Rx#: [id number] Norepinephrine 4 mg In 385.603 69.461 Sodium Chloride 0.9% 250 ml @ 0.03 MCG/KG/MIN 7. 727 mls/hr IV .Q24H [facility] Rx#:[id number] Sodium Chloride 0.9% 1, 1000 000 ml @ 999 mls/hr IV . Q1H1M [facility] Rx#:[id number] Sodium Chloride 0.9% 1, 1000 000 ml @ 999 mls/hr IV . Q1H1M [facility] Rx#:[id number] propofoL 1,000 mg In 6.591 142.703 81.12 Empty Bag 1 bag @ 15 MCG/ KG/MIN 6.084 mls/hr IV . [id number] [facility] Rx#:[id number] Output: Chest Tube Drainage 1000 130 Chest Tube Left 1000 130 Drainage 30 50 Left Abdomen 20 20 Right Abdomen 10 30 Urine 695 220 70 Estimated Blood Loss 50 Other: Voiding Method Indwelling Catheter Indwelling Catheter Indwelling Catheter ABP, PAP, CO, CI - Last Documented Arterial Blood Pressure 99/44 - Exam GENERAL DESCRIPTION: An elderly female intubated on the vent RESPIRATORY SYSTEM: Unlabored breathing , diminished breath sounds HEART: S1 S2 regular rate and rhythm , ABDOMEN: Soft , mild distension EXTREMITIES: No edema feet - Labs CBC & Chem 7: 07/12/23 04:35 07/12/23 16:40 Labs: Abnormal Lab Results - Last 24 Hours (Table) 07/11/23 07/11/23 07/11/23 Range/Units 16:14 16:41 16:41 WBC 12.5 H (3.8-10.6) k/uL RBC 3.69 L (3.80-5.40) m/uL Hgb 9.9 L (11.4-16.0) gm/dL Hct 32.3 L (34.0-46.0) % MCHC 30.6 L (31.0-37.0) g/dL Plt Count (150-450) k/uL Neutrophils # 11.4 H (1.3-7.7) k/uL Lymphocytes # 0.4 L (1.0-4.8) k/uL ABG pO2 (83-108) mmHg ABG Total CO2 (19-24) mmol/L ABG O2 Saturation (94-97) % Chloride 111 H (98-107) mmol/L BUN 29 H (7-17) mg/dL Creatinine 1.06 H (0.52-1.04) mg/dL Glucose 151 H (74-99) mg/dL POC Glucose (mg/dL) 158 H (70-110) mg/dL Calcium 7.5 L (8.4-10.2) mg/dL 07/11/23 07/12/23 07/12/23 Range/Units 17:00 04:35 04:35 WBC 19.2 H (3.8-10.6) k/uL RBC 3.50 L (3.80-5.40) m/uL Hgb 9.8 L (11.4-16.0) gm/dL Hct 30.7 L (34.0-46.0) % MCHC (31.0-37.0) g/dL Plt Count 488 H (150-450) k/uL Neutrophils # 17.9 H (1.3-7.7) k/uL Lymphocytes # 0.5 L (1.0-4.8) k/uL ABG pO2 62 L (83-108) mmHg ABG Total CO2 26 H (19-24) mmol/L ABG O2 Saturation 91.7 L (94-97) % Chloride 113 H (98-107) mmol/L BUN 35 H (7-17) mg/dL Creatinine 1.20 H (0.52-1.04) mg/dL Glucose 172 H (74-99) mg/dL POC Glucose (mg/dL) (70-110) mg/dL Calcium 7.4 L (8.4-10.2) mg/dL 07/12/23 Range/Units 05:54 WBC (3.8-10.6) k/uL RBC (3.80-5.40) m/uL Hgb (11.4-16.0) gm/dL Hct (34.0-46.0) % MCHC (31.0-37.0) g/dL Plt Count (150-450) k/uL Neutrophils # (1.3-7.7) k/uL Lymphocytes # (1.0-4.8) k/uL ABG pO2 111 H (83-108) mmHg ABG Total CO2 (19-24) mmol/L ABG O2 Saturation 97.8 H (94-97) % Chloride (98-107) mmol/L BUN (7-17) mg/dL Creatinine (0.52-1.04) mg/dL Glucose (74-99) mg/dL POC Glucose (mg/dL) (70-110) mg/dL Calcium (8.4-10.2) mg/dL Microbiology - Last 24 Hours (Table) 07/11/23 18:08 Gram Stain - Preliminary Abdomen 07/11/23 00:22 Blood Culture Gram Stain - Preliminary Blood Assessment and Plan (1) Abnormal CT of the chest Current Visit: Yes Status: Acute Code(s): R93.89 - ABNORMAL FINDINGS ON DX IMAGING OF OTH BODY STRUCTURES SNOMED Code(s): 79560896205091034 (2) Leukocytosis Current Visit: Yes Status: Acute Code(s): D72.829 - ELEVATED WHITE BLOOD CELL COUNT, UNSPECIFIED SNOMED Code(s): 889249773 (3) Pneumonia Current Visit: Yes Status: Acute Code(s): J18.9 - PNEUMONIA, UNSPECIFIED ORGANISM SNOMED Code(s): 326702468 Plan: 1-Patient is 82-year-old female electively admitted to hospital status post paraesophageal hernia repair with abdominal mesh now with worsening of her clinical condition and concerning for fluid collection posterior to the stomach concerning for possible gastric perforation and intra-abdominal abscess 2-Patient is s/p laparotomy with surgical repair of gastric perforation x 2 and drainage of the intra-abdominal abscess with cultures currently pending 3VRE bacteremia source likely intra-abdominal abscess 4-blood cultures repeated document clearance of bacteremia 5-patient to continue with the Zosyn and daptomycin while waiting for the cult ure to finalize and monitor clinical course closely Dictation was produced using [employer] dictation software. please excuse any grammatical, word or spelling errors. Time with Patient: Greater than 30
[2023-07-12 23:45] LABS: Glucose,Whole Blood 229 mg/dL (70-110)
[2023-07-13] MEDS: HYDROmorphone 1 MG/ML 1 ML SYRINGE IVP PRN ×7 (00:04→20:06)
[2023-07-13] MEDS: METOPROLOL TARTRATE 5 MG/5 ML VIAL IVP PRN (00:52)
[2023-07-13] MEDS: PIPERACILLIN-TAZOBACTAM 3.375 GM in SODIUM CHLORIDE 0.9% 100 ML IVPB SCH ×3 (01:20→16:50)
[2023-07-13] MEDS: DILTIAZEM 125 MG in SODIUM CHLORIDE 0.9% 100 ML IV SCH ×2 (01:30→14:57)
[2023-07-13] MEDS: NOREPINEPHRINE 4 MG in SODIUM CHLORIDE 0.9% 250 ML IV SCH ×3 (02:01→21:15)
[2023-07-13 04:54] LABS: African American GFR (CKD) 49 (>60 ml/min/1.73 sqM); Anion Gap 5 mmol/L; Blood Urea Nitrogen 36 mg/dL (7-17); Calcium 7.8 mg/dL (8.4-10.2); Carbon Dioxide 23 mmol/L (22-30); Chloride 116 mmol/L (98-107); Glucose 228 mg/dL (74-99); Magnesium 2.6 mg/dL (1.6-2.3); Non-African American GFR(CKD) 43 (>60 ml/min/1.73 sqM); Phosphorus 3.6 mg/dL (2.5-4.5); Sodium 144 mmol/L (137-145)
[2023-07-13 05:02] LABS: Basophils % (A) 0 %; Eosinophils % (A) 0 %; HCT 27.9 % (34.0-46.0); HGB 8.5 gm/dL (11.4-16.0); Hypochromasia Marked; Lymphocytes # (A) 0.3 k/uL (1.0-4.8); Lymphocytes % (A) 1 %; MCH 27.2 pg (25.0-35.0); MCHC 30.5 g/dL (31.0-37.0); MCV 89.1 fL (80.0-100.0); Mean Platelet Volume 8.1; Monocytes # (A) 0.6 k/uL (0-1.0); Monocytes % (A) 3 %; Neutrophils # (A) 17.3 k/uL (1.3-7.7); Neutrophils % (A) 94 %; Platelet Count 507 k/uL (150-450); RBC 3.14 m/uL (3.80-5.40); WBC 18.4 k/uL (3.8-10.6)
[2023-07-13 05:49] LABS: ABG Base Excess -1.2 mmol/L; ABG HCO3 25 mmol/L (21-25); ABG Oxygen Saturation 98.5 % (94-97); ABG PCO2 45 mmHg (35-45); ABG PH 7.34 (7.35-7.45); ABG PO2 135 mmHg (83-108); ABG TCO2 26 mmol/L (19-24); Allen Test Performed? Yes
[2023-07-13 05:56] LABS: Glucose,Whole Blood 242 mg/dL (70-110)
[2023-07-13] MEDS: INSULIN ASPART (NovoLOG) 100 UNIT/ML VIAL SQ SCH ×3 (06:05→17:22)
--- NOTE | 2023-07-13 07:20 | XR ---
EXAMINATION TYPE: XR chest 1V portable DATE OF EXAM: 07/13/2023 5:36 AM CLINICAL INDICATION:Female, 82 years old with history of Tube placement; [facility] COMPARISON: Chest radiographs from 07/11/2023 TECHNIQUE: XR chest 1V portable Frontal view of the chest. FINDINGS: Lungs/Pleura: There is no evidence of pleural effusion, focal consolidation, or pneumothorax. Pulmonary vascularity: Unremarkable. Heart/mediastinum: Cardiomediastinal silhouette is unremarkable. Musculoskeletal: No acute osseous pathology. Other findings: None Lines/Tubes: Endotracheal tube with distal tip 4.1 cm above the john. Nasogastric tube with its distal tip and side-port projecting under the diaphragm. Left thoracotomy tube is present without evidence of pneumothorax. IMPRESSION: 1. Stable support tubes. 2. Left thoracotomy tube with small pleural effusion no evidence for pneumothorax.
[2023-07-13] MEDS: IPRATROPIUM-ALBUTEROL 3 ML NEB INHALATION SCH ×4 (08:00→19:40)
[2023-07-13] MEDS: BUDESONIDE 1 MG/2 ML NEBU INHALATION SCH ×2 (08:00→19:40)
[2023-07-13] MEDS: methylPREDNISolone SOD SUCCI 40 MG/ML 1 ML VIAL IV SCH ×2 (09:32→15:53)
[2023-07-13] MEDS: CHLORHEXIDINE GLUCONATE 15 ML CUP MUCOUS MEM SCH ×2 (09:32→20:27)
[2023-07-13] MEDS: LIDOCAINE 4% PATCH TOPICAL SCH (09:32)
[2023-07-13] MEDS: PANTOPRAZOLE 40 MG/10 ML VIAL IVP SCH ×2 (09:32→20:27)
--- NOTE | 2023-07-13 09:39 | P.PN ---
Subjective Progress Note Date: 07/13/23 Principal diagnosis: Left pleural effusion, status post placement of left-sided pleural chest tube by Dr. Perkins 07/11/2023 The patient was seen and examined this morning laying in bed in the intensive care unit, sedated on mechanical ventilation. Currently in sinus rhythm, blood pressure stable on Levophed, remains on IV cardizem and propofol. Ventilator adjustments per pulmonology. Left-sided pleural chest tube remains present, 120 mL serous drainage in the last 24 hours. Objective - Vital Signs Vital signs: Vital Signs Temp 97.6 F 07/13/23 05:00 Pulse 75 07/13/23 08:07 Resp 20 07/13/23 08:07 BP 124/61 07/13/23 07:00 Pulse Ox 98 07/13/23 07:00 FiO2 40 07/13/23 08:07 Intake & Output 07/12/23 07/13/23 07/13/23 18:59 06:59 18:59 Intake Total 787.834 440.757 278.011 Output Total 485 780 75 Balance 302.834 -339.243 203.011 Weight 78.6 kg 81.6 kg Intake: IV 375 120 10 Piperacillin-Tazobactam 3 125 .375 gm In Sodium Chloride 0.9% 100 ml @ 25 mls/hr IVPB Q8HR [facility] Rx# :[id number] kvo 250 120 10 Intake, IV Titration 412.834 320.757 268.011 Amount Diltiazem 125 mg In 100.417 Sodium Chloride 0.9% 100 ml @ 5 MG/HR 5 mls/hr IV .Q24H [facility] Rx#:[id number] Norepinephrine 4 mg In 133.852 175.180 174.453 Sodium Chloride 0.9% 250 ml @ 0.03 MCG/KG/MIN 7. 727 mls/hr IV .Q24H [facility] Rx#:[id number] propofoL 1,000 mg In 178.565 145.577 93.558 Empty Bag 1 bag @ 15 MCG/ KG/MIN 6.084 mls/hr IV . [id number] [facility] Rx#:[id number] Output: Drainage 25 35 Left Abdomen 5 25 Right Abdomen 20 10 Urine 460 745 75 Other: Voiding Method Indwelling Catheter Indwelling Catheter ABP, PAP, CO, CI - Last Documented Arterial Blood Pressure 145/46 - Exam CONSTITUTIONAL: Remains sedated on mechanical ventilation RESPIRATORY: Lungs sounds diminished bilaterally. Respirations even, nonlabored. Currently on FiO2 40%, PEEP 5, TV 400, RR 20. 7.0 ETT present, 22@ the lip CARDIOVASCULAR: S1, S2 present. Regular rate and rhythm, sinus rhythm on telemetry. Palpable peripheral pulses bilaterally. No edema present. SCDs present. GASTROINTESTINAL: Abdomen soft, tender, nondistended. Hypoactive bowel sounds present. NGT present. GENITOURINARY: Coelho present draining clear, yellow urine INTEGUMENTARY: Skin is warm, abd incision covered with dry intact dressing, bilateral JENI drains present NEUROLOGIC: Sedated MUSKULOSKELETAL: Able to move all extremities although upper extremities restrained INVASIVE LINES AND TUBES: Left pleural chest tube present and connected to wall suction, no air leaks present, 120 mL serosanguineous drainage in the last 24 hours - Allied health notes Allied health notes reviewed: nursing - Labs CBC & Chem 7: 07/13/23 04:15 07/13/23 04:15 Labs: Abnormal Lab Results - Last 24 Hours (Table) 07/12/23 07/12/23 07/12/23 Range/Units 11:29 16:40 17:24 WBC (3.8-10.6) k/uL RBC (3.80-5.40) m/uL Hgb (11.4-16.0) gm/dL Hct (34.0-46.0) % MCHC (31.0-37.0) g/dL Plt Count (150-450) k/uL Neutrophils # (1.3-7.7) k/uL Lymphocytes # (1.0-4.8) k/uL ABG pH (7.35-7.45) ABG pO2 (83-108) mmHg ABG Total CO2 (19-24) mmol/L ABG O2 Saturation (94-97) % Chloride 115 H (98-107) mmol/L Carbon Dioxide 20 L (22-30) mmol/L BUN 37 H (7-17) mg/dL Creatinine 1.39 H (0.52-1.04) mg/dL Glucose 183 H (74-99) mg/dL POC Glucose (mg/dL) 185 H 190 H (70-110) mg/dL Calcium 7.5 L (8.4-10.2) mg/dL Phosphorus 4.9 H (2.5-4.5) mg/dL Magnesium (1.6-2.3) mg/dL Alkaline Phosphatase 150 H (38-126) U/L Total Protein 4.4 L (6.3-8.2) g/dL Albumin 1.9 L (3.5-5.0) g/dL Triglycerides 253.00 H (0.00-149.00) mg/dL 07/12/23 07/13/23 07/13/23 Range/Units 23:43 04:15 04:15 WBC 18.4 H (3.8-10.6) k/uL RBC 3.14 L (3.80-5.40) m/uL Hgb 8.5 L (11.4-16.0) gm/dL Hct 27.9 L (34.0-46.0) % MCHC 30.5 L (31.0-37.0) g/dL Plt Count 507 H (150-450) k/uL Neutrophils # 17.3 H (1.3-7.7) k/uL Lymphocytes # 0.3 L (1.0-4.8) k/uL ABG pH (7.35-7.45) ABG pO2 (83-108) mmHg ABG Total CO2 (19-24) mmol/L ABG O2 Saturation (94-97) % Chloride 116 H (98-107) mmol/L Carbon Dioxide (22-30) mmol/L BUN 36 H (7-17) mg/dL Creatinine 1.20 H (0.52-1.04) mg/dL Glucose 228 H (74-99) mg/dL POC Glucose (mg/dL) 229 H (70-110) mg/dL Calcium 7.8 L (8.4-10.2) mg/dL Phosphorus (2.5-4.5) mg/dL Magnesium 2.6 H (1.6-2.3) mg/dL Alkaline Phosphatase (38-126) U/L Total Protein (6.3-8.2) g/dL Albumin (3.5-5.0) g/dL Triglycerides (0.00-149.00) mg/dL 07/13/23 07/13/23 Range/Units 05:37 05:54 WBC (3.8-10.6) k/uL RBC (3.80-5.40) m/uL Hgb (11.4-16.0) gm/dL Hct (34.0-46.0) % MCHC (31.0-37.0) g/dL Plt Count (150-450) k/uL Neutrophils # (1.3-7.7) k/uL Lymphocytes # (1.0-4.8) k/uL ABG pH 7.34 L (7.35-7.45) ABG pO2 135 H (83-108) mmHg ABG Total CO2 26 H (19-24) mmol/L ABG O2 Saturation 98.5 H (94-97) % Chloride (98-107) mmol/L Carbon Dioxide (22-30) mmol/L BUN (7-17) mg/dL Creatinine (0.52-1.04) mg/dL Glucose (74-99) mg/dL POC Glucose (mg/dL) 242 H (70-110) mg/dL Calcium (8.4-10.2) mg/dL Phosphorus (2.5-4.5) mg/dL Magnesium (1.6-2.3) mg/dL Alkaline Phosphatase (38-126) U/L Total Protein (6.3-8.2) g/dL Albumin (3.5-5.0) g/dL Triglycerides (0.00-149.00) mg/dL Microbiology - Last 24 Hours (Table) 07/11/23 00:22 Blood Culture Gram Stain - Preliminary Blood Blood Culture - Preliminary Group D Enterococcus 07/12/23 00:39 Gram Stain - Preliminary Sputum 07/07/23 14:07 Blood Culture - Final Blood 07/11/23 18:08 Gram Stain - Preliminary Abdomen - Imaging and Cardiology Chest x-ray: report reviewed, image reviewed Assessment and Plan Assessment: Left pleural effusion, status post placement of left pleural chest tube S/P repair of paraesophageal hernia Possible abdominal abscess Group D enterococcus bacteremia COPD Metabolic encephalopathy DANIEL HTN PAF PIPPA GERD Previous tobacco dependence Plan: Continue chest tube to continuous wall suction, monitor output, will leave chest tubes in until extubation Will monitor daily CXR Ventilator management per pulmonology, once extubated encourage incentive spirometry Medical management of other comorbidities per general surgery, pulmonology, cardiology, internal medicine, infectious disease More recommendations regarding chest tube to follow
[2023-07-13] MEDS: bisacodyL 10 MG SUPP RECTAL SCH (09:40)
--- NOTE | 2023-07-13 10:18 | P.PN ---
Subjective Progress Note Date: 07/13/23 Principal diagnosis: Respiratory failure. This is an 82-year-old female with history of multiple medical problems including hypertension, CVA, dyslipidemia, iron deficiency anemia, depression and generalized anxiety disorder, patient was also noted to have recurrent paraesophageal hiatal hernia. On 07/01/2023, patient was admitted by Dr. Kendrick for elective laparoscopic repair of paraesophageal hernia with absorbable mesh. Procedure was done on 07/01/2023, and the patient was managed medically by internal medicine after the surgery. Since her admission till now, patient has been seen by many consultants including internal medicine, cardiology, general surgery, neurology, infectious disease, all along the patient was noted to have a small left pleural effusion, which was noted to be present 2 days after her surgery, and this pleural effusion was not present back in December of 2022 based on an old chest x-ray clearly this pleural effusion is considered relatively new and developed shortly after her surgery. Echocardiogram on this patient showed good ejection fraction, she had mild pulmonary hypertension, and she had moderate tricuspid regurgitation and sclerotic aortic valve was noted but no stenosis. On this admission the patient developed new onset paroxysmal atrial fibrillation, hence the patient was given metoprolol, and she was also placed on eliquis. Amiodarone was added. And intermittently the patient has been receiving Lasix for presumptive congestive heart failure. Ultrasound of the chest on 07/09 showed moderate left pleural effusion and small right pleural effusion, left side is amenable for thoracentesis. However the patient has been on eliquis all along, and I am recommending that we hold the eliquis today, and possibly consider thoracentesis in the next 24 hours. In the meantime patient will be given a dose of diuretics, I believe most likely the fluid is cardiogenic in nature unless proven otherwise. Again this fluid was not present prior to her admission. Not to mention during my examination the patient, she had diffuse rhonchi and wheezes bilaterally, she does have a nasogastric tube in place, and she definitely needs to be placed on bronchodilators to optimize her pulmonary status. Patient seems to have large nasogastric output today. Chest x-ray this morning showed congestive changes with left-sided pleural effusion. Possibility of congestive heart failure is very likely considering the chest x-ray appearan ce. BNP level today is almost 5000. Progress note dated 07/11/2023. 82-year-old female seen yesterday in consultation by my partner. The patient was admitted back on July 01, for an elective repair of a hiatal hernia. The patient's surgery took place on July 01. The patient was brought to the intensive care unit, on July 10, for atrial fibrillation with RVR, and low blood pressure. The patient is seen today in room 259. The patient's currently on Zosyn. The patient's on a liter high flow oxygen, and has an NG tube in place. The patient's getting 0.9 at KVO. A computed tomography scan of the abdomen and pelvis, apparently has revealed a fluid collection, in the abdomen. The surgery is considering exploratory laparotomy. In addition, because of new onset atrial fibrillation, the patient will have Dopplers of lower extremities. White count 13, hemoglobin 11, platelet count normal. D-dimer was 9. Blood gases show pO2 of 69, pCO2 45, and a pH of 7.4. This was on 35% oxygen. Sodium 141, potassium 3.8, chlorides 108, CO2 26, BUN 20, creatinine 0.8. Troponins were 0.096 and 0.144. Albumin was 2.2. Blood cultures are negative. Chest x- ray reveals a left lower lobe infiltrate with a left pleural effusion, and a possible left-sided pneumothorax. CT of the abdomen shows a interval development of a fluid collection, posterior to the stomach, measuring 4 cm x 9.4 cm. Progress note dated 07/12/2023. 82-year-old female seen in consultation 2 days ago by my partner. The patient was seen today in the intensive care unit. The patient had surgery yesterday. A computed tomography scan revealed an abnormality, posterior to the stomach. The patient is postop day #1, status post exploratory laparotomy, repair of gastric perforation, drainage of abdominal abscess, and lysis of adhesions. The surgery was done by Dr. La. The patient came back to the intensive care unit, on the mechanical ventilator. She remains on the mechanical ventilator. She is on the volume assist control, rate 20, tidal volume 400, FiO2 50%, and PEEP of 5. Blood gases show pO2 111, pCO2 of 40, and a pH is 7.37. The patient's getting lactated Ringer's at 75 mL an hour, propofol at 45 mcg/kg/m, norepinephrine, which is been weaned off, and a Cardizem drip of 5 mg an hour. The chest tube was placed by cardiothoracic surgery on the left side yesterday. The patient currently is on Zosyn and daptomycin. Blood cultures are apparently positive for possible streptococci, and vancomycin-resistant enterococci. White count 19.2, hemoglobin 9.8, hematocrit 30.7, and platelet count 488,000. Sodium 142, potassium 3.9, chlorides 113, CO2 22, BUN 35, creatinine 1.20. Magnesium is 2.2. Chest x-ray shows relatively clear right lung, properly positioned endotracheal tube, a left-sided chest tube, and some volume off in the left chest, with a residual left-sided pleural effusion. Progress note dated 07/13/2023. 82-year-old female seen in consultation 3 days ago, by my partner. The patient is currently in the intensive care unit, and continues on the mechanical ve ntilator. The patient is postop day #1, status post repair of the gastric perforation, drainage of abdominal abscess, exploratory laparotomy, and lysis of adhesions. The patient remains on mechanical ventilator, with volume assist control as a mode, rate 20, tidal volume 400, FiO2 40%, PEEP of 5. Blood gases show a PaO2 of 135, pCO2 45, and pH is 7.34. Blood gases were done on 50% FiO2. The patient is on Cardizem is 7.5 mg an hour, norepinephrine at about 5 mcg/m, and saline at KVO. The patient's also getting TPN at 30 mL an hour. The patient continues on Zosyn and daptomycin. Propofol is running at 40 mcg/kg/m. White count 18.4, hemoglobin 8.5, hematocrit 27.9, and platelet count 507,000. Sodium 144, potassium 4, chlorides 116, CO2 23, BUN 36, and creatinine 1.20. Microbiology is positive for group D enterococcus in the blood. Chest x-ray shows a left thoracotomy tube, with a small left-sided effusion. Doppler of the left upper extremity, was negative for DVT. Objective - Vital Signs Vital signs: Vital Signs Temp 97.6 F 07/13/23 05:00 Pulse 75 07/13/23 08:07 Resp 20 07/13/23 08:07 BP 124/61 07/13/23 07:00 Pulse Ox 98 07/13/23 07:00 FiO2 40 07/13/23 08:07 Intake & Output 07/12/23 07/13/23 07/13/23 18:59 06:59 18:59 Intake Total 787.834 440.757 278.011 Output Total 485 780 75 Balance 302.834 -339.243 203.011 Weight 78.6 kg 81.6 kg Intake: IV 375 120 10 Piperacillin-Tazobactam 3 125 .375 gm In Sodium Chloride 0.9% 100 ml @ 25 mls/hr IVPB Q8HR [facility] Rx# :[id number] kvo 250 120 10 Intake, IV Titration 412.834 320.757 268.011 Amount Diltiazem 125 mg In 100.417 Sodium Chloride 0.9% 100 ml @ 5 MG/HR 5 mls/hr IV .Q24H [facility] Rx#:[id number] Norepinephrine 4 mg In 133.852 175.180 174.453 Sodium Chloride 0.9% 250 ml @ 0.03 MCG/KG/MIN 7. 727 mls/hr IV .Q24H [facility] Rx#:[id number] propofoL 1,000 mg In 178.565 145.577 93.558 Empty Bag 1 bag @ 15 MCG/ KG/MIN 6.084 mls/hr IV . [id number] [facility] Rx#:[id number] Output: Drainage 25 35 Left Abdomen 5 25 Right Abdomen 20 10 Urine 460 745 75 Other: Voiding Method Indwelling Catheter Indwelling Catheter ABP, PAP, CO, CI - Last Documented Arterial Blood Pressure 145/46 - Exam No acute distress, patient's sedated, with an orally placed endotracheal tube, and NG tube. HEENT examination is grossly unremarkable. Mucous membranes are moist. No oral lesions. NG tube in place. Neck supple. Full range of motion. No adenopathy thyromegaly or neck vein distention. Cardiovascular examination reveals regular rhythm rate. S1-S2 normal. No S3 or S4. No discernible murmur noted. Heart sounds are distant. Heart rate 75 bpm. Lungs reveal scattered rhonchi. No wheezes or crackles. Breath sounds equal. Saturations 98 %. A left-sided chest tube is noted. Abdomen soft, without bowel sounds. Extremities are intact. No cyanosis clubbing or edema. Skin is without rash or lesion. Neurologic examination not able to be evaluated at this time. - Labs CBC & Chem 7: 07/13/23 04:15 07/13/23 04:15 Labs: Abnormal Lab Results - Last 24 Hours (Table) 07/12/23 07/12/23 07/12/23 Range/Units 11:29 16:40 17:24 WBC (3.8-10.6) k/uL RBC (3.80-5.40) m/uL Hgb (11.4-16.0) gm/dL Hct (34.0-46.0) % MCHC (31.0-37.0) g/dL Plt Count (150-450) k/uL Neutrophils # (1.3-7.7) k/uL Lymphocytes # (1.0-4.8) k/uL ABG pH (7.35-7.45) ABG pO2 (83-108) mmHg ABG Total CO2 (19-24) mmol/L ABG O2 Saturation (94-97) % Chloride 115 H (98-107) mmol/L Carbon Dioxide 20 L (22-30) mmol/L BUN 37 H (7-17) mg/dL Creatinine 1.39 H (0.52-1.04) mg/dL Glucose 183 H (74-99) mg/dL POC Glucose (mg/dL) 185 H 190 H (70-110) mg/dL Calcium 7.5 L (8.4-10.2) mg/dL Phosphorus 4.9 H (2.5-4.5) mg/dL Magnesium (1.6-2.3) mg/dL Alkaline Phosphatase 150 H (38-126) U/L Total Protein 4.4 L (6.3-8.2) g/dL Albumin 1.9 L (3.5-5.0) g/dL Triglycerides 253.00 H (0.00-149.00) mg/dL 07/12/23 07/13/23 07/13/23 Range/Units 23:43 04:15 04:15 WBC 18.4 H (3.8-10.6) k/uL RBC 3.14 L (3.80-5.40) m/uL Hgb 8.5 L (11.4-16.0) gm/dL Hct 27.9 L (34.0-46.0) % MCHC 30.5 L (31.0-37.0) g/dL Plt Count 507 H (150-450) k/uL Neutrophils # 17.3 H (1.3-7.7) k/uL Lymphocytes # 0.3 L (1.0-4.8) k/uL ABG pH (7.35-7.45) ABG pO2 (83-108) mmHg ABG Total CO2 (19-24) mmol/L ABG O2 Saturation (94-97) % Chloride 116 H (98-107) mmol/L Carbon Dioxide (22-30) mmol/L BUN 36 H (7-17) mg/dL Creatinine 1.20 H (0.52-1.04) mg/dL Glucose 228 H (74-99) mg/dL POC Glucose (mg/dL) 229 H (70-110) mg/dL Calcium 7.8 L (8.4-10.2) mg/dL Phosphorus (2.5-4.5) mg/dL Magnesium 2.6 H (1.6-2.3) mg/dL Alkaline Phosphatase (38-126) U/L Total Protein (6.3-8.2) g/dL Albumin (3.5-5.0) g/dL Triglycerides (0.00-149.00) mg/dL 07/13/23 07/13/23 Range/Units 05:37 05:54 WBC (3.8-10.6) k/uL RBC (3.80-5.40) m/uL Hgb (11.4-16.0) gm/dL Hct (34.0-46.0) % MCHC (31.0-37.0) g/dL Plt Count (150-450) k/uL Neutrophils # (1.3-7.7) k/uL Lymphocytes # (1.0-4.8) k/uL ABG pH 7.34 L (7.35-7.45) ABG pO2 135 H (83-108) mmHg ABG Total CO2 26 H (19-24) mmol/L ABG O2 Saturation 98.5 H (94-97) % Chloride (98-107) mmol/L Carbon Dioxide (22-30) mmol/L BUN (7-17) mg/dL Creatinine (0.52-1.04) mg/dL Glucose (74-99) mg/dL POC Glucose (mg/dL) 242 H (70-110) mg/dL Calcium (8.4-10.2) mg/dL Phosphorus (2.5-4.5) mg/dL Magnesium (1.6-2.3) mg/dL Alkaline Phosphatase (38-126) U/L Total Protein (6.3-8.2) g/dL Albumin (3.5-5.0) g/dL Triglycerides (0.00-149.00) mg/dL Microbiology - Last 24 Hours (Table) 07/11/23 18:08 Gram Stain - Preliminary Abdomen Wound Culture - Preliminary Casandra albicans 07/11/23 00:22 Blood Culture Gram Stain - Preliminary Blood Blood Culture - Preliminary Group D Enterococcus 07/12/23 00:39 Gram Stain - Preliminary Sputum 07/07/23 14:07 Blood Culture - Final Blood Assessment and Plan Assessment: Postop day #12, status post repair of her recurrent paraesophageal hernia. Postop day 2, status post exploratory laparotomy, repair of gastric perforation, drainage of abdominal abscess, and lysis of adhesions. Status post left-sided chest tube placement, 07/11/2023. COPD, acutely active. Mental status changes, secondary to metabolic encephalopathy. Acute kidney injury. Benign essential hypertension. Paroxysmal atrial fibrillation, with rapid ventricular response. Generalized anxiety disorder. GERD with esophagitis. Restless leg syndrome. Chronic back pain. Previous tobacco use. Plan: Plan dated 07/11/2023. The patient is acutely. She remains in the intensive care unit. The patient's on 8 L of oxygen, high flow. She does have a left-sided pleural effusion, and may have a left-sided pneumothorax. I did speak to the surgeon, was planning on doing exploratory laparotomy, evaluated the fluid collection, posterior to the stomach. The patient will likely come back to the intensive care unit, on the mechanical ventilator. Additional recommendations and suggestions are forthcoming. Labs, x-rays, medications are reviewed. X-rays are negative. She remains on Zosyn. Follow make recommendations along the way. Prognosis is guarded. Plan dated 07/12/2023. The patient went to the operating room yesterday, for a fluid collection behind the stomach. The patient was discovered to have a perforated stomach, and abscess, that was drained, and lysis of adhesions. The patient came back to the ICU on the ventilator. She remains on the ventilator at this time. She continues on propofol, and Cardizem 5 mg an hour. She has a left chest tube was placed by cardiothoracic surgery for left pleural effusion and possible left- sided pneumothorax. The patient's on Zosyn and daptomycin, for vancomycin- resistant enterococci, and possible streptococci. Additional recommendations and suggestions are forthcoming. Prognosis is guarded. We will continue to follow the patient, make recommendations along the way. Plan dated 07/13/2023. The patient is critically ill, in the intensive care unit, on the mechanical breathing machine. She seen today in room 259. We will attempt a daily interruption of sedation, although I'm positive, the patient is not yet ready for weaning and extubation. She continues on propofol, Cardizem, and norepinephrine. She is now getting TPN at 30 mL an hour. Blood gases are re asonable. The FiO2 was reduced from 50%, down to 40%. Labs, x-rays, and medications are reviewed. We will continue to follow the patient, and make recommendations along the way. The patient's overall prognosis remains very guarded. Time with Patient: Greater than 30
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
[2023-07-13 12:03] LABS: Glucose,Whole Blood 224 mg/dL (70-110)
--- NOTE | 2023-07-13 13:11 | P.PN ---
Subjective Progress Note Date: 07/13/23 CHIEF COMPLAINT: Recurrent paraesophageal hiatal hernia HISTORY OF PRESENT ILLNESS: Patient required to be taken back to the OR due to fluid fluid collection posterior's to the stomach noted on CT. Postop day #2 status post exploratory laparotomy, repair of gastric perforation 2, drainage of abdominal abscess and lysis of adhesions. Patient had chest tube placed intraoperatively by cardiothoracic surgeon for left-sided pleural effusion and possible left-sided pneumothorax. She is postop day #12 status post laparoscopic repair of paraesophageal hiatal hernia with mesh, lysis of adhesions and partial gastrectomy. Patient remains intubated in the ICU. She is on Levophed. They have started her on TPN. She did have episode of A. fib with RVR during the night. Afebrile. WBC 19 down to 18.4 Hgb 8.5 minutes 507 creatinine 1.2 PHYSICAL EXAM: VITAL SIGNS: Reviewed. GENERAL: Intubated and sedated CHEST: Left-sided chest tube ABDOMEN: Soft. Nondistended. Midline incisional dressing clean dry and intact. JENI drains with serosanguineous output ASSESSMENT: 1. Gastric perforation status post exploratory laparotomy, repair of gastric perforation 2, drainage of abdominal abscess and lysis of adhesions 2. Recurrent paraesophageal hiatal hernia, Adhesions, GERD status post laparosc opic repair of paraesophageal hiatal hernia with mesh, lysis of adhesions and partial gastrectomy on 07/01/2023 3. A. fib with RVR 4. Altered mental status secondary to Metabolic encephalopathy 5. Possible TIA PLAN: -Continue ICU management -Continue pain management -Continue antibiotics -Okay to resume anticoagulation with IV heparin today without bolus from surgical standpoint I have personally seen and examined the patient, reviewed the [employer]CH[employer]IC /PAs history, exam and MDM and agree with the assessment and plan as written. Based on total visit time, I have performed more than 50% of the visit. Patient stable on the ventilator. Still on low-dose pressors. Good urine output. Drains are serosanguineous. Continue antibiotics. Continue supportive care. Continue TPN and bowel rest. May start heparin drip. Physician Quality Review Specialist note has been reviewed by physician. Signing provider agrees with the documented findings, assessment, and plan of care. Objective - Vital Signs Vital signs: Vital Signs Temp 97.6 F 07/13/23 05:00 Pulse 75 07/13/23 08:07 Resp 20 12/20/23 08:07 BP 124/61 07/13/23 07:00 Pulse Ox 98 07/13/23 07:00 FiO2 40 07/13/23 08:07 Intake & Output 07/12/23 07/13/23 07/13/23 18:59 06:59 18:59 Intake Total 787.834 440.757 278.011 Output Total 485 780 75 Balance 302.834 -339.243 203.011 Weight 78.6 kg 81.6 kg Intake: IV 375 120 10 Piperacillin-Tazobactam 3 125 .375 gm In Sodium Chloride 0.9% 100 ml @ 25 mls/hr IVPB Q8HR [facility] Rx# :[id number] kvo 250 120 10 Intake, IV Titration 412.834 320.757 268.011 Amount Diltiazem 125 mg In 100.417 Sodium Chloride 0.9% 100 ml @ 5 MG/HR 5 mls/hr IV .Q24H [facility] Rx#:[id number] Norepinephrine 4 mg In 133.852 175.180 174.453 Sodium Chloride 0.9% 250 ml @ 0.03 MCG/KG/MIN 7. 727 mls/hr IV .Q24H [facility] Rx#:[id number] propofoL 1,000 mg In 178.565 145.577 93.558 Empty Bag 1 bag @ 15 MCG/ KG/MIN 6.084 mls/hr IV . [id number] [facility] Rx#:[id number] Output: Drainage 25 35 Left Abdomen 5 25 Right Abdomen 20 10 Urine 460 745 75 Other: Voiding Method Indwelling Catheter Indwelling Catheter ABP, PAP, CO, CI - Last Documented Arterial Blood Pressure 145/46 - Labs CBC & Chem 7: 07/13/23 04:15 07/13/23 04:15 Labs: Abnormal Lab Results - Last 24 Hours (Table) 07/12/23 07/12/23 07/12/23 Range/Units 11:29 16:40 17:24 WBC (3.8-10.6) k/uL RBC (3.80-5.40) m/uL Hgb (11.4-16.0) gm/dL Hct (34.0-46.0) % MCHC (31.0-37.0) g/dL Plt Count (150-450) k/uL Neutrophils # (1.3-7.7) k/uL Lymphocytes # (1.0-4.8) k/uL ABG pH (7.35-7.45) ABG pO2 (83-108) mmHg ABG Total CO2 (19-24) mmol/L ABG O2 Saturation (94-97) % Chloride 115 H (98-107) mmol/L Carbon Dioxide 20 L (22-30) mmol/L BUN 37 H (7-17) mg/dL Creatinine 1.39 H (0.52-1.04) mg/dL Glucose 183 H (74-99) mg/dL POC Glucose (mg/dL) 185 H 190 H (70-110) mg/dL Calcium 7.5 L (8.4-10.2) mg/dL Phosphorus 4.9 H (2.5-4.5) mg/dL Magnesium (1.6-2.3) mg/dL Alkaline Phosphatase 150 H (38-126) U/L Total Protein 4.4 L (6.3-8.2) g/dL Albumin 1.9 L (3.5-5.0) g/dL Triglycerides 253.00 H (0.00-149.00) mg/dL 07/12/23 07/13/23 07/13/23 Range/Units 23:43 04:15 04:15 WBC 18.4 H (3.8-10.6) k/uL RBC 3.14 L (3.80-5.40) m/uL Hgb 8.5 L (11.4-16.0) gm/dL Hct 27.9 L (34.0-46.0) % MCHC 30.5 L (31.0-37.0) g/dL Plt Count 507 H (150-450) k/uL Neutrophils # 17.3 H (1.3-7.7) k/uL Lymphocytes # 0.3 L (1.0-4.8) k/uL ABG pH (7.35-7.45) ABG pO2 (83-108) mmHg ABG Total CO2 (19-24) mmol/L ABG O2 Saturation (94-97) % Chloride 116 H (98-107) mmol/L Carbon Dioxide (22-30) mmol/L BUN 36 H (7-17) mg/dL Creatinine 1.20 H (0.52-1.04) mg/dL Glucose 228 H (74-99) mg/dL POC Glucose (mg/dL) 229 H (70-110) mg/dL Calcium 7.8 L (8.4-10.2) mg/dL Phosphorus (2.5-4.5) mg/dL Magnesium 2.6 H (1.6-2.3) mg/dL Alkaline Phosphatase (38-126) U/L Total Protein (6.3-8.2) g/dL Albumin (3.5-5.0) g/dL Triglycerides (0.00-149.00) mg/dL 07/13/23 07/13/23 Range/Units 05:37 05:54 WBC (3.8-10.6) k/uL RBC (3.80-5.40) m/uL Hgb (11.4-16.0) gm/dL Hct (34.0-46.0) % MCHC (31.0-37.0) g/dL Plt Count (150-450) k/uL Neutrophils # (1.3-7.7) k/uL Lymphocytes # (1.0-4.8) k/uL ABG pH 7.34 L (7.35-7.45) ABG pO2 135 H (83-108) mmHg ABG Total CO2 26 H (19-24) mmol/L ABG O2 Saturation 98.5 H (94-97) % Chloride (98-107) mmol/L Carbon Dioxide (22-30) mmol/L BUN (7-17) mg/dL Creatinine (0.52-1.04) mg/dL Glucose (74-99) mg/dL POC Glucose (mg/dL) 242 H (70-110) mg/dL Calcium (8.4-10.2) mg/dL Phosphorus (2.5-4.5) mg/dL Magnesium (1.6-2.3) mg/dL Alkaline Phosphatase (38-126) U/L Total Protein (6.3-8.2) g/dL Albumin (3.5-5.0) g/dL Triglycerides (0.00-149.00) mg/dL Microbiology - Last 24 Hours (Table) 07/11/23 18:08 Gram Stain - Preliminary Abdomen Wound Culture - Preliminary Casandra albicans 07/11/23 00:22 Blood Culture Gram Stain - Preliminary Blood Blood Culture - Preliminary Group D Enterococcus 07/12/23 00:39 Gram Stain - Preliminary Sputum 07/07/23 14:07 Blood Culture - Final Blood
[2023-07-13] MEDS ORDERED: ANIDULAFUNGIN 200 MG in SODIUM CHLORIDE 0.9% 200 ML IVPB ONE (13:30)
--- NOTE | 2023-07-13 13:38 | P.OP ---
Date of Procedure: 07/11/23 Preoperative Diagnosis: Left pleural effusion Postoperative Diagnosis: Same Procedure(s) Performed: Left chest tube placement Anesthesia: ONEL Surgeon: Herann Perkins Estimated Blood Loss (ml): 0 Pathology: none sent Condition: critical Disposition: ICU Indications for Procedure: 82-year-old female who is status post repair of a hiatal hernia by general surgery. He has had a complicated postoperative course. She was being returned to the operating room for abdominal exploration. She was noted to have a large left pleural effusion. Gen. surgery had requested resting surgery to place a chest tube at the time of surgery. Operative Findings: 750 mL of slightly turbid serous fluid was drained. Description of Procedure: Following transferred to the operating room and induction of general anesthesia and intubation, the left anterior chest was sterilely prepped and draped with the patient supine. One-inch incision was made in the sixth interspace and dissection carried laterally. Pleural space was entered and serous fluid was noted. 32-Armenian chest tube was placed into the pleural space and connected to a Pleur-evac. Tube was secured with 0 Ethibond suture. Dry sterile dressing was applied.
[2023-07-13] MEDS ORDERED: HEPARIN SODIUM 1,000 UN/ML (10ML VL) IV PRN (13:53)
[2023-07-13] MEDS: HEPARIN SOD,PORK IN 0.45% NACL 25,000 UNIT in 0.45% NACL 1 250ML.BAG IV SCH (14:13)
[2023-07-13 14:36] LABS: INR 0.8 (<1.2); Partial Thromboplastin Time 24.1 sec (22.0-30.0); Prothrombin Time 9.4 sec (10.0-12.5)
[2023-07-13 15:02] LABS: % Iron Saturation 4.92 (12.00-45.00)
[2023-07-13 17:21] LABS: Glucose,Whole Blood 255 mg/dL (70-110)
[2023-07-13] MEDS ORDERED: 1: MVI, ADULT NO.4 WITH VIT K 10 ML, TRACE (CONC-1ML/DOSE) 1 ML, SODIUM ACETATE 30 MEQ, IV SCH ×6 (20:00)
[2023-07-13 21:07] LABS: INR 0.8 (<1.2); Partial Thromboplastin Time 32.5 sec (22.0-30.0); Prothrombin Time 9.6 sec (10.0-12.5)
[2023-07-13 21:37] LABS: Glucose,Whole Blood 274 mg/dL (70-110)
[2023-07-14 00:03] LABS: Glucose,Whole Blood 280 mg/dL (70-110)
[2023-07-14] MEDS: HYDROmorphone 1 MG/ML 1 ML SYRINGE IVP PRN ×6 (00:09→23:56)
[2023-07-14] MEDS: methylPREDNISolone SOD SUCCI 40 MG/ML 1 ML VIAL IV SCH ×4 (00:33→23:54)
[2023-07-14] MEDS: DAPTOmycin 500 MG in SODIUM CHLORIDE 0.9% 50 ML IVPB SCH ×2 (00:33→23:56)
[2023-07-14] MEDS: INSULIN ASPART (NovoLOG) 100 UNIT/ML VIAL SQ SCH ×5 (00:33→23:56)
--- NOTE | 2023-07-14 00:43 | P.PN ---
Subjective Patient is evaluated today sitting up in the chair on medical floor. Heart rate is elevated this morning in the 150s irregular pending EKG and telemetry has also been ordered. Further recommendations pending the EKG. Patient denies any chest pain, no shortness of breath, states she feels anxious. Currently NPO. She is postoperative day #3 paraesophageal hernia repair. Has been receiving D5 1/2 NS at 75 mls/hr. Received a dose of IV lasix around 6am, BNP is elevated at 3460. 07/05/2023 Patient evaluated on the stepdown unit today currently postoperative day #4 paraesophageal hernia repair. Having 10/10 abdominal discomfort per patient duran vanessa passing gas and having increased bowel sounds. Receiving IV dilaudid for pain management. On IV cardizem at 5 will be transitioned to metoprolol and cleared for anticoagulation by surgery was started on eliquis. Patient had complaints of left sided weakness which strength appears equal on examination. Had brain CT showing degenerative and remote ischemic change with no evidence of acute hemorrhage or mass effect. 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 Neurology was consulted. Chest xray follow up yesterday reveals increasing air underneath the right hemidiaphragm could reflect colonic interposition. Pneumoperitoneum not excluded. Left basilar opacity may reflect atelectasis or pneumonia. Patient was receiving IV fluids which were stopped due to proBNP of over 7000. Received second dose of IV lasix. Labs today showing sodium 147, potassium 2.9. 07/06/2023 Patient is evaluated today on the stepdown unit currently postoperative day #5 paraesophageal hernia repair. Patient today is alert x 3 however confused thrashing around. Not complaining of pain. Has been started on full liquid diet and tolerating did have a large bowel movement. Abdomen soft. Remains on IV zosyn. 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 [place] patient had a TIA. No left sided weakness noted today. Possible left facial droop however difficult to assess due to patient not being able to sit still. Labs today reveal sodium 148, potassium 3.6, BUN 41, creatinine 1.33. TSH normal 0.701. Patient is urinating had a bladder scan today no retention noted. Echocardiogram was a technically difficult study however LV function appears grossly normal at 55%, mild MR and mild biatrial dilation. 07/07/2023 Patients mentation has not much improved nursing reports continued slurred speech patient unable to swallow pills. Neurology following, patient had repeat brain CT showing chronic appearing periventricular white matter ischemic changes. Small old lacunar infarct in the basal ganglion. She is postoperative day #6 paraesophageal hernia repair. Had new onset atrial fibrillation with RVR suspected TIA. Underwent EEG today showing toxic metabolic encephalopathy and moderate to severe background slowing. No epileptiform activity noted. Patient with some scattered wheezing today and chest xray was completed which reveals a left lower lobe infiltrate and or atelectasis. Patient does have IS at bedside has not been using. Will order ST consulation rule out aspiration. Recommend at this time conservative management and avoid narcotics if possible. Patient continues on D5 water at 75 mls/hr and sodium has normalized to 145, potassium 3.3, BUN 46, creatinine 1.13. B12 1816 and folate 7.60. Patient remains afe brile, heart rate of 72, blood pressure 124/71, 96% on 2L of oxygen. 07/08/2023 Patient relates a with family at the bedside. Mentation has improved she is more awake alert and less confused. Currently postoperative day #7 paraesophageal hernia repair. Did require IV amiodarone overnight due to elevated heart rate up into the 150s. Cardiology has transitioned her to oral amiodarone today her heart rate is in the 70-80s. Anticoagulation has been resumed today. Patient remains on D5 water at 75 mls/hr. Also on IV zosyn since post surgical. Procalcitonin is elevated at 0.60. Chest xray showing left lower lobe infiltrate and or atelectasis. Her urinalysis was abnormal small leukocyte esterase, cloudy urine. 07/09/2023 Patient is postoperative day #8 paraesophageal hernia repair. Patient has been transitioned to IV amiodarone at half rate and will continue; with plans to transition to oral amiodarone today. Heart rate has improved for the afib RVR. Surgery has okay the eliquis and she continues on 5 mg BID of eliquis. Patient has tolerated increased diet she is not complaining of much abdominal pain having some hypoactive bowel sounds she has not been able to get out of bed over the last few days due to her altered mentation. Had an abdomen pelvis CT done showing right upper lobe left lung which could represent atypical pneumonia. Small left and trace right pleural effusions no other definitive evidence for source of infectious process. There is no evidence for acute infectious process within the abdomen or pelvis. There is colonic diverticulosis. Today she has scattered audible wheezing today. She continues on duonebs QID and scheduled and remains on oxygen support. Family at the bedside updated on plan of care. 07/10/2023 Patient is postoperative day #9 paraesophageal hernia repair. Patient's bowel sounds were hypoactive yesterday and did vomit is morning per nursing the vomit was brown in color. She had an NG tube placed abdominal x-ray was done which s hows stable placement of NG tube. Additionally she remains on nasal cannula oxygen support with scattered wheezing. She did not tolerate prior diuresis and went in to acute kidney injury and for this reason she has been maintained on IV fluids. Her proBNP is still elevated at 4980. Patient had a follow-up chest x- ray showing increased haziness in the left lung correlate with serum BNP given the patient's cardiomyopathy related to rule out congestive heart failure. There is pulmonary vascular congestion. There is no evidence of pleural effusion focal consolidation or pneumothorax. We did do a chest ultrasound yesterday which does reveal a 8.3 cm left pleural effusion. Pulmonary was co nsulted for further evaluation and given patient a dose of IV Lasix today. Eliquis is now being held for a possible thoracentesis. Patient does have worsening white count 19.1 today, hemoglobin stable at 11.0, sodium 140, potassium 3.8, BUN of 14, creatinine 0.55. Viral panel is negative for influ kristal RSV and Covid. 07/11/2023 Patient is postoperative day #10 paraesophageal hernia repair. She has been maintained on the stepdown unit. In sinus mechanism and has been transitioned to oral amiodarone. Eliquis has been placed on hold for possible thoracentesis. Fluids were held, patient received a dose of IV lasix yesterday. Had an increase in white count up to 19. Repeat abdominal CT was done showing interval development of a fluid collection posterior to the stomach measuring 4 cm AP by 9.4 cm transverse. Moderate left and tiny right pleural effusions with associated atelectasis. Overnight patient developed acute chest pain, was found to have elevated D Dimer and also had troponin elevation, did have drop in BP down to 70/50s. She was moved to the intensive care unit. Chest xray continues to show moderate to large pleural effusion. Patient was noted to have left pneumothorax, left lower lobe infiltrate correlate for CHF moderate left pleural effusion is cardiomegaly, and left pleural effusion noted on follow up chest xray. Venous doppler negative for DVT. Labs today showing sodium 141, potassium 3.8, BUN 20, creatinine 0.80. Elevated D dimer of 9.00. Family at bedside was updated discussed need for chest tub placement and exploratory laporotomy. No further questions at this time. Daughter asking what next steps are if they don't want aggressive measures hospice care was discussed. 07/12/2023 Patient is evaluated postoperative day #11 paraesophageal hernia repair and p ostoperative day #1 repair of gastric perforation x 2 and drainage of abdominal abscess. Came back to the ICU postoperatively on the mechanical ventilator remains intubated and sedated. Patient also had placement of left sided chest tube by cardiothoracic team. Chest xray this AM reveals left sided chest tube in place. No appreciable pneumothorax. Ongoing small to moderate left pleural effusion with adjacent atelectasis or consolidation. Interstitial changes throughout the remainder of the left lung also persist. Patient had 1070 mls of drainage from the chest tube when it was placed. Blood cultures are showing gram positive cocci. White count today 19.2, hgb 9.8, BUN 35, creatinine 1.20, ma gnesium 2.2, potassium 3.9. D-Dimer was done and elevated at 9 unable to get the chest CTA currently had venous doppler which is negative for DVT bilaterally. She is on combination of IV daptomycin and zosyn for the bacteremia. On IV solumedrol. On levophed running at 20.6 mls/hr. She is getting TPN. I'm first day resume the care of the patient 07/13/2023 this is a pleasant 52 years old female who initially admitted for repair of paraesophageal hernia status post laparoscopic surgical repair with mesh on 07/01. Also patient was found to have perforation with abdominal abscess status post exploratory laparotomy and lysis of adhesion, gastric repair and drainage of abscess on 07/11. Initial CAT scan of the abdomen and pelvis was reviewed to repeat the CAT scan showed interval development of fluid behind the stomach 4.9.4 centimeter. She is currently remains in the ICU sedated and intubated. She is on multiple antibiotic with daptomycin, Zosyn and Eraxis. She is on IV heparin drip, Cardizem drip 7.5 mg/h, IV Solu-Medrol 40 mg and pressors with Levophed. Also she is getting TPN nutrition and 30 mL/h. Echocardiogram showed ejection fraction of 55% Leukocytosis of 18,000 but patient also on his steroids. Hemoglobin came down from 11 down to 8.5. Creatinine up to 1.2 and 31st chemo followed closely. Active Medications Generic Name Dose Route Start Last Admin Trade Name Freq PRN Reason Stop Dose Admin Albuterol/Ipratropium 3 ml 07/07/23 13:57 07/09/23 04:12 Ipratropium-Albuterol 3 Ml Neb INHALATION 3 ml RT-QID PRN Administration Shortness Of Breath Or Wheezing Albuterol/Ipratropium 3 ml 07/08/23 16:00 07/13/23 19:40 Ipratropium-Albuterol 3 Ml Neb INHALATION 3 ml RT-QID YUMIKO Administration Budesonide 1 mg 07/10/23 10:00 07/13/23 19:40 Budesonide 1 Mg/2 Ml Nebu INHALATION 1 mg RT-BID YUMIKO Administration Chlorhexidine Gluconate 15 ml 07/11/23 21:00 07/13/23 20:27 Chlorhexidine Gluconate 15 Ml Cup MUCOUS MEM 15 ml BID YUMIKO Administration Dextrose/Water 25 ml 07/12/23 14:48 Dextrose 50% Syringe 50 Ml IVP PER PROTOCOL PRN Hypoglycemia Protocol Dextrose/Water 50 ml 07/12/23 14:48 Dextrose 50% Syringe 50 Ml IVP PER PROTOCOL PRN Hypoglycemia Protocol Heparin Sodium (Porcine) 0 unit 07/13/23 13:53 07/13/23 21:23 Heparin Sodium 1,000 Un/Ml (10ml Vl) IV 4,050 unit PER PROTOCOL PRN Administration Low PTT Protocol Hydromorphone HCl 0.5 mg 07/12/23 03:20 07/12/23 11:37 Hydromorphone 0.5 Mg/0.5 Ml Syringe IVP 0.5 mg Q4HR PRN Administration Pain Hydromorphone HCl 1 mg 07/12/23 09:55 07/14/23 00:09 Hydromorphone 1 Mg/Ml 1 Ml Syringe IVP 1 mg Q3HR PRN Administration Pain Propofol 1,000 mg/ IV Solution 100 mls @ 6.084 mls/hr 07/11/23 15:45 07/13/23 21:44 IV 50 mcg/kg/min .[id number] YUMIKO 20.28 mls/hr Administration Protocol 15 MCG/KG/MIN Norepinephrine Bitartrate 4 mg 254 mls @ 7.727 mls/hr 07/11/23 19:00 07/13/23 22:28 / Sodium Chloride IV 0.05 mcg/kg/min .Q24H YUMIKO 12.878 mls/hr Titration Protocol 0.03 MCG/KG/MIN Daptomycin 500 mg/ Sodium 50 mls @ 100 mls/hr 07/12/23 00:00 07/14/23 00:33 Chloride IVPB 100 mls/hr Q24H YUMIKO Administration Protocol Piperacillin Sod/Tazobactam 100 mls @ 25 mls/hr 07/12/23 01:00 07/13/23 16:50 Sod 3.375 gm/ Sodium Chloride IVPB 25 mls/hr Q8H YUMIKO Administration Protocol Parenteral Vitamin Supplement 1,046 mls @ 60 mls/hr 07/13/23 20:00 07/13/23 20:35 10 ml/ Zinc/Copper/Manganese/ IV 60 mls/hr Selenium 1 ml/ Sodium Acetate .BY DURATION YUMIKO Administration 30 meq/ Potassium Acetate 20 meq/ Calcium Gluconate 1 gm/ Amino Acids/Dextrose Sodium Acetate 30 meq/ 1,035 mls @ 60 mls/hr 07/13/23 20:00 Potassium Acetate 20 meq/ IV Calcium Gluconate 1 gm/ Amino .BY DURATION YUMIKO Acids/Dextrose Diltiazem HCl 125 mg/ Sodium 125 mls @ 7.5 mls/hr 07/13/23 01:30 07/13/23 16:06 Chloride IV 5 mg/hr .[id number] YUMIKO 5 mls/hr Infusion 7.5 MG/HR Anidulafungin 100 mg/ Sodium 100 mls @ 84 mls/hr 07/14/23 09:00 Chloride IVPB DAILY YUMIKO Protocol Heparin Sodium/Sodium Chloride 250 mls @ 9.792 mls/hr 07/13/23 14:00 07/13/23 21:21 25,000 unit/ Sodium Chloride IV 15 units/kg/hr .Q24H YUMIKO 12.24 mls/hr Titration Protocol 12 UNITS/KG/HR Insulin Aspart 0 unit 07/12/23 18:00 07/14/23 00:33 Insulin Aspart (Novolog) 100 Unit/Ml Vial SQ 6 unit Q6HR YUMIKO Administration Protocol Lidocaine 1 patch 07/02/23 11:15 07/13/23 09:32 Lidocaine 4% Patch TOPICAL 1 patch DAILY YUMIKO Administration Protocol Methylprednisolone Sodium Succinate 40 mg 07/10/23 10:00 07/14/23 00:33 Methylprednisolone Sod Succi 40 Mg/Ml 1 Ml Vial IV 40 mg Q8HR YUMIKO Administration Metoclopramide HCl 10 mg 07/01/23 11:20 07/02/23 06:39 Metoclopramide 5 Mg/Ml 2 Ml Vial IVP 07/31/23 11:21 10 mg Q6H PRN Administration Nausea And Vomiting Metoprolol Tartrate 5 mg 07/07/23 21:51 07/13/23 00:52 Metoprolol Tartrate 5 Mg/5 Ml Vial IVP 5 mg Q6HR PRN Administration Tachyarrhythmias Miscellaneous Information 1 each 07/05/23 11:38 Potassium Replacement Protocol 1 Each Misc MISCELLANE DAILY PRN Per Protocol Protocol Miscellaneous Information 1 each 07/11/23 15:43 Magnesium Replacement Protocol 1 Each Misc MISCELLANE DAILY PRN Per Protocol Protocol Miscellaneous Information 1 each 07/11/23 15:43 Phosphorus Replacement Protoco 1 Each Misc MISCELLANE DAILY PRN Per Protocol Protocol Naloxone HCl 0.2 mg 07/01/23 11:20 07/11/23 03:17 Naloxone 0.4 Mg/Ml 1 Ml Vial IV 07/31/23 11:21 0.2 mg Q2M PRN Administration Opioid Reversal Ondansetron HCl 4 mg 07/01/23 11:20 07/10/23 20:52 Ondansetron 4 Mg/2 Ml Vial IVP 07/31/23 11:21 4 mg Q6HR PRN Administration Nausea And Vomiting Pantoprazole Sodium 40 mg 07/10/23 22:45 07/13/23 20:27 Pantoprazole 40 Mg/10 Ml Vial IVP 40 mg BID YUMIKO Administration Objective - Vital Signs Vital signs: Vital Signs Temp 99.2 F 07/13/23 08:00 Pulse 68 07/13/23 11:00 Resp 20 07/13/23 11:00 BP 125/64 07/13/23 10:15 Pulse Ox 99 07/13/23 11:00 FiO2 40 07/13/23 08:07 Intake & Output 07/12/23 07/13/23 07/13/23 18:59 06:59 18:59 Intake Total 787.834 440.757 453.011 Output Total 485 780 345 Balance 302.834 -339.243 108.011 Weight 78.6 kg 81.6 kg Intake: IV 375 120 150 Piperacillin-Tazobactam 3 125 100 .375 gm In Sodium Chloride 0.9% 100 ml @ 25 mls/hr IVPB Q8HR YUMIKO Rx# :[id number] kvo 250 120 50 Intake, IV Titration 412.834 320.757 303.011 Amount Diltiazem 125 mg In 100.417 Sodium Chloride 0.9% 100 ml @ 5 MG/HR 5 mls/hr IV .Q24H YUMIKO Rx#:[id number] Diltiazem 125 mg In 35 Sodium Chloride 0.9% 100 ml @ 7.5 MG/HR 7.5 mls/hr IV .[id number] YUMIKO Rx#: [id number] Norepinephrine 4 mg In 133.852 175.180 174.453 Sodium Chloride 0.9% 250 ml @ 0.03 MCG/KG/MIN 7. 727 mls/hr IV .Q24H YUMIKO Rx#:[id number] propofoL 1,000 mg In 178.565 145.577 93.558 Empty Bag 1 bag @ 15 MCG/ KG/MIN 6.084 mls/hr IV . [id number] YUMIKO Rx#:[id number] Output: Chest Tube Drainage 20 Chest Tube Left 20 Drainage 25 35 20 Left Abdomen 5 25 Right Abdomen 20 10 20 Urine 460 745 305 Other: Voiding Method Indwelling Catheter Indwelling Catheter ABP, PAP, CO, CI - Last Documented Arterial Blood Pressure 121/37 - Exam -GENERAL: The patient is intubated and sedated HEENT: Pupils are round and equally reacting to light. EOMI. No scleral icterus. No conjunctival pallor. Normocephalic, atraumatic. No pharyngeal erythema. No thyromegaly. CARDIOVASCULAR: S1 and S2 present. No murmurs, rubs, or gallops. PULMONARY: Chest is clear to auscultation, no wheezing , no crackles. -ABDOMEN: Soft, nontender, nondistended, normoactive bowel sounds. No palpable organomegaly. Coelho catheter in place MUSCULOSKELETAL: No joint swelling or deformity. EXTREMITIES: No cyanosis, clubbing, or pedal edema. NEUROLOGICAL: Gross neurological examination did not reveal any focal deficits. SKIN: No rashes. no petechiae. - Labs CBC & Chem 7: 07/13/23 04:15 07/13/23 04:15 Labs: Abnormal Lab Results - Last 24 Hours (Table) 07/12/23 07/12/23 07/12/23 Range/Units 16:40 17:24 23:43 WBC (3.8-10.6) k/uL RBC (3.80-5.40) m/uL Hgb (11.4-16.0) gm/dL Hct (34.0-46.0) % MCHC (31.0-37.0) g/dL Plt Count (150-450) k/uL Neutrophils # (1.3-7.7) k/uL Lymphocytes # (1.0-4.8) k/uL ABG pH (7.35-7.45) ABG pO2 (83-108) mmHg ABG Total CO2 (19-24) mmol/L ABG O2 Saturation (94-97) % Chloride 115 H (98-107) mmol/L Carbon Dioxide 20 L (22-30) mmol/L BUN 37 H (7-17) mg/dL Creatinine 1.39 H (0.52-1.04) mg/dL Glucose 183 H (74-99) mg/dL POC Glucose (mg/dL) 190 H 229 H (70-110) mg/dL Calcium 7.5 L (8.4-10.2) mg/dL Phosphorus 4.9 H (2.5-4.5) mg/dL Magnesium (1.6-2.3) mg/dL Alkaline Phosphatase 150 H (38-126) U/L Total Protein 4.4 L (6.3-8.2) g/dL Albumin 1.9 L (3.5-5.0) g/dL Triglycerides 253.00 H (0.00-149.00) mg/dL 07/13/23 07/13/23 07/13/23 Range/Units 04:15 04:15 05:37 WBC 18.4 H (3.8-10.6) k/uL RBC 3.14 L (3.80-5.40) m/uL Hgb 8.5 L (11.4-16.0) gm/dL Hct 27.9 L (34.0-46.0) % MCHC 30.5 L (31.0-37.0) g/dL Plt Count 507 H (150-450) k/uL Neutrophils # 17.3 H (1.3-7.7) k/uL Lymphocytes # 0.3 L (1.0-4.8) k/uL ABG pH 7.34 L (7.35-7.45) ABG pO2 135 H (83-108) mmHg ABG Total CO2 26 H (19-24) mmol/L ABG O2 Saturation 98.5 H (94-97) % Chloride 116 H (98-107) mmol/L Carbon Dioxide (22-30) mmol/L BUN 36 H (7-17) mg/dL Creatinine 1.20 H (0.52-1.04) mg/dL Glucose 228 H (74-99) mg/dL POC Glucose (mg/dL) (70-110) mg/dL Calcium 7.8 L (8.4-10.2) mg/dL Phosphorus (2.5-4.5) mg/dL Magnesium 2.6 H (1.6-2.3) mg/dL Alkaline Phosphatase (38-126) U/L Total Protein (6.3-8.2) g/dL Albumin (3.5-5.0) g/dL Triglycerides (0.00-149.00) mg/dL 07/13/23 Range/Units 05:54 WBC (3.8-10.6) k/uL RBC (3.80-5.40) m/uL Hgb (11.4-16.0) gm/dL Hct (34.0-46.0) % MCHC (31.0-37.0) g/dL Plt Count (150-450) k/uL Neutrophils # (1.3-7.7) k/uL Lymphocytes # (1.0-4.8) k/uL ABG pH (7.35-7.45) ABG pO2 (83-108) mmHg ABG Total CO2 (19-24) mmol/L ABG O2 Saturation (94-97) % Chloride (98-107) mmol/L Carbon Dioxide (22-30) mmol/L BUN (7-17) mg/dL Creatinine (0.52-1.04) mg/dL Glucose (74-99) mg/dL POC Glucose (mg/dL) 242 H (70-110) mg/dL Calcium (8.4-10.2) mg/dL Phosphorus (2.5-4.5) mg/dL Magnesium (1.6-2.3) mg/dL Alkaline Phosphatase (38-126) U/L Total Protein (6.3-8.2) g/dL Albumin (3.5-5.0) g/dL Triglycerides (0.00-149.00) mg/dL Microbiology - Last 24 Hours (Table) 07/11/23 18:08 Gram Stain - Preliminary Abdomen Wound Culture - Preliminary Casandra albicans 07/11/23 00:22 Blood Culture Gram Stain - Preliminary Blood Blood Culture - Preliminary Group D Enterococcus 07/12/23 00:39 Gram Stain - Preliminary Sputum 07/07/23 14:07 Blood Culture - Final Blood Assessment and Plan Assessment: -Recurrent paraesophageal hernia , s/p laproscopic surgical repair with mesh and partial gastrectomy on a 07/01 -Abdominal abscess behind the stomach, status post repair of gastric perforation x 2 and drainage of abdominal abscess and lysis of adhesions with JENI drain -Left sided pleural effusion and Interval development of left pneumothorax status post chest tube placement with over 1 L of fluid drained initially pleural fluid sent for cytology. -Enterococcus Faecium bacteremia possibly VRE on course of IV daptomycin and IV zosyn -Septic shock due to gastric perforation requiring vasopressor support -New onset atrial fibrillation with RVR treated with IV cardizem/IV amiodarone patient is currently maintaining sinus rhythm with PVCs/PACs. Also she is on heparin drip -COPD with mild acute excerbation receiving systemic steroids -Acute kidney injury likely ATN/from sepsis -Hypokalemia normalized -Hypernatremia, resolved -Altered mental status likely acute metabolic encephalopathy from DANIEL and hyper natremia/ TIA neurology following. Patient is now intubated and sedated. -Pt reports left sided weakness neurology consultation patient had brain CT likely due to TIA and symptoms have resolved. On statin therapy. and was placed on eliquis 5 mg BID. -Leukocytosis worsening -Troponin elevation rule out ACS cardiology following. -Hypertension -Hyperlipidemia -Restless leg syndrome -Gastroesophageal reflux disease -Anxiety/Depression -Chronic back pain with prior lumbar decompression and fusion -Former nicotine use -Hx of TIA DVT prophylaxis with heparin drip GI prophylaxis on Protonix Prognosis is guarded Thank you for consulting us, we will follow up with you
[2023-07-14] MEDS: PIPERACILLIN-TAZOBACTAM 3.375 GM in SODIUM CHLORIDE 0.9% 100 ML IVPB SCH ×4 (01:18→23:54)
[2023-07-14 04:40] LABS: INR 0.9 (<1.2); Prothrombin Time 10.3 sec (10.0-12.5)
[2023-07-14 04:48] LABS: Basophils % (A) 0 %; Eosinophils % (A) 0 %; HCT 24.8 % (34.0-46.0); HGB 7.4 gm/dL (11.4-16.0); Hypochromasia Marked; Lymphocytes # (A) 0.4 k/uL (1.0-4.8); Lymphocytes % (A) 2 %; MCH 26.9 pg (25.0-35.0); MCHC 29.8 g/dL (31.0-37.0); MCV 90.1 fL (80.0-100.0); Mean Platelet Volume 8.4; Monocytes # (A) 0.6 k/uL (0-1.0); Monocytes % (A) 4 %; Neutrophils # (A) 15.7 k/uL (1.3-7.7); Neutrophils % (A) 93 %; Platelet Count 475 k/uL (150-450); RBC 2.75 m/uL (3.80-5.40); WBC 16.9 k/uL (3.8-10.6)
[2023-07-14 05:32] LABS: Ionized Calcium 5.1 mg/dL (4.5-5.3)
[2023-07-14 05:37] LABS: African American GFR (CKD) 75 (>60 ml/min/1.73 sqM); Anion Gap 7 mmol/L; Blood Urea Nitrogen 37 mg/dL (7-17); Carbon Dioxide 22 mmol/L (22-30); Chloride 118 mmol/L (98-107); Glucose 223 mg/dL (74-99); Magnesium 2.7 mg/dL (1.6-2.3); Non-African American GFR(CKD) 65 (>60 ml/min/1.73 sqM); Phosphorus 2.2 mg/dL (2.5-4.5); Potassium 3.7 mmol/L (3.5-5.1); Sodium 147 mmol/L (137-145)
[2023-07-14 05:39] LABS: Glucose,Whole Blood 236 mg/dL (70-110)
[2023-07-14] MEDS: POTASSIUM CHLORIDE 10 MEQ in WATER FOR INJECTION 1 100ML.BAG IVPB SCH ×2 (05:57→07:02)
[2023-07-14 06:09] LABS: ABG Base Excess 0.1 mmol/L; ABG HCO3 25 mmol/L (21-25); ABG Oxygen Saturation 98.3 % (94-97); ABG PCO2 42 mmHg (35-45); ABG PH 7.39 (7.35-7.45); ABG PO2 113 mmHg (83-108); ABG TCO2 26 mmol/L (19-24)
--- NOTE | 2023-07-14 07:44 | PN ---
PROGRESS NOTE DATE OF SERVICE: 07/13/2023 SUBJECTIVE: Mrs Robert is in sinus this morning but she was in atrial fib yesterday. This lady had a perforation in the stomach which was repaired 48 hours ago. I placed her on Cardizem, but this was stopped since she was in sinus rhythm, but she went back to atrial fib. She is on a small dose of Levophed, I am recommending that we wean off the Levophed and leave her on Cardizem at 7.5 or 5 mg per hour with that titration. Neurology evaluation was requested. Neurology will be seeing the patient. Decent urine output. OBJECTIVE: HEART: Currently in sinus rhythm, S1-S2 heard normally, short systolic murmur noted. LUNGS: Reveal diminished air entry. The patient is still on the ventilator. ABDOMEN: Deferred. EXTREMITIES: Lower extremities reveal diminished pulses. NEUROLOGIC: Central system assessment not performed. Neurology consult in progress. MMODL / IJN: [id number] /
[2023-07-14] MEDS: PANTOPRAZOLE 40 MG/10 ML VIAL IVP SCH ×2 (07:58→20:42)
[2023-07-14] MEDS: ANIDULAFUNGIN 100 MG in SODIUM CHLORIDE 0.9% 100 ML IVPB SCH (08:03)
--- NOTE | 2023-07-14 08:49 | XR ---
EXAMINATION TYPE: XR chest 1V portable DATE OF EXAM: 07/14/2023 Comparison: 07/13/2023 Clinical History: 82-year-old female Tube placement Findings: ET tube tip 2.8 cm from the john. NG tube courses below the diaphragm. Leftward patient rotation ul trasonographer and mediastinal contours. Borderline-enlarged. Ongoing small to moderate left pleural effusion with adjacent opacity. Left-side d chest tube in place. No appreciable pneumothorax. Impression: 1. Rotated exam. [id number] left pleural effusion with adjacent atelectasis and/or consolidati on. 2. Left-sided chest tube in place. No appreciable pneumothorax.
--- NOTE | 2023-07-14 08:54 | P.PN ---
Subjective Progress Note Date: 07/13/23 Principal diagnosis: Reason for follow-up is Intra-abdominal abscess and VRE bacteremia Patient is a 82-year-old female with a past medical history living with CVA TIA reflux hyperlipidemia hypertension patient was electively admitted to the hospital on 07/01/2023 in this patient with recurrent paraesophageal hiatal hernia patient is status post laparoscopic repair of the paraesophageal hiatal hernia with absorbable mesh lysis of adhesion and partial gastrectomy, patient did have a postoperative A. fib with RVR problem with her mentation requiring CT of the abdominal pelvis, did have some lung parenchymal groundglass opacity from previous infectious disease consultation, Patient was taken to the OR evening of 07/11/2023, patient is status post expiratory laparotomy repair of gastric perforation x 2 and drainage of abdominal abscess along with lysis of adhesion. On today's evaluation that is 07/13/2023, the patient remains to be afebrile the patient hemodynamically stable requiring less pressor support per the nursing staff no significant purulent secretions through the ET reported patient FiO2 is down to 40%. Patient white count of 18.4 creatinine is 1.20 abdominal culture growing Casandra albicans. Objective - Vital Signs Vital signs: Vital Signs Temp 98.9 F 07/13/23 12:00 Pulse 61 07/13/23 12:52 Resp 20 07/13/23 12:52 BP 125/64 07/13/23 10:15 Pulse Ox 100 07/13/23 12:15 FiO2 40 07/13/23 12:45 Intake & Output 07/12/23 07/13/23 07/13/23 18:59 06:59 18:59 Intake Total 787.834 440.757 541.298 Output Total 485 780 440 Balance 302.834 -339.243 101.298 Weight 78.6 kg 81.6 kg Intake: IV 375 120 160 Piperacillin-Tazobactam 3 125 100 .375 gm In Sodium Chloride 0.9% 100 ml @ 25 mls/hr IVPB Q8HR [facility] Rx# :[id number] kvo 250 120 60 Intake, IV Titration 412.834 320.757 381.298 Amount Diltiazem 125 mg In 100.417 Sodium Chloride 0.9% 100 ml @ 5 MG/HR 5 mls/hr IV .Q24H [facility] Rx#:[id number] Diltiazem 125 mg In 35 Sodium Chloride 0.9% 100 ml @ 7.5 MG/HR 7.5 mls/hr IV .[id number] [facility] Rx#: [id number] Norepinephrine 4 mg In 133.852 175.180 193.083 Sodium Chloride 0.9% 250 ml @ 0.03 MCG/KG/MIN 7. 727 mls/hr IV .Q24H [facility] Rx#:[id number] propofoL 1,000 mg In 178.565 145.577 153.215 Empty Bag 1 bag @ 15 MCG/ KG/MIN 6.084 mls/hr IV . [id number] [facility] Rx#:[id number] Output: Chest Tube Drainage 40 Chest Tube Left 40 Drainage 25 35 20 Left Abdomen 5 25 Right Abdomen 20 10 20 Urine 460 745 380 Other: Voiding Method Indwelling Catheter Indwelling Catheter ABP, PAP, CO, CI - Last Documented Arterial Blood Pressure 135/45 - Exam GENERAL DESCRIPTION: An elderly female intubated on the vent RESPIRATORY SYSTEM: Unlabored breathing , diminished breath sounds HEART: S1 S2 regular rate and rhythm , ABDOMEN: Soft , mild distension EXTREMITIES: No edema feet - Labs CBC & Chem 7: 07/14/23 04:15 07/14/23 04:15 Labs: Abnormal Lab Results - Last 24 Hours (Table) 07/12/23 07/12/23 07/12/23 Range/Units 16:40 17:24 23:43 WBC (3.8-10.6) k/uL RBC (3.80-5.40) m/uL Hgb (11.4-16.0) gm/dL Hct (34.0-46.0) % MCHC (31.0-37.0) g/dL Plt Count (150-450) k/uL Neutrophils # (1.3-7.7) k/uL Lymphocytes # (1.0-4.8) k/uL ABG pH (7.35-7.45) ABG pO2 (83-108) mmHg ABG Total CO2 (19-24) mmol/L ABG O2 Saturation (94-97) % Chloride 115 H (98-107) mmol/L Carbon Dioxide 20 L (22-30) mmol/L BUN 37 H (7-17) mg/dL Creatinine 1.39 H (0.52-1.04) mg/dL Glucose 183 H (74-99) mg/dL POC Glucose (mg/dL) 190 H 229 H (70-110) mg/dL Calcium 7.5 L (8.4-10.2) mg/dL Phosphorus 4.9 H (2.5-4.5) mg/dL Magnesium (1.6-2.3) mg/dL Alkaline Phosphatase 150 H (38-126) U/L Total Protein 4.4 L (6.3-8.2) g/dL Albumin 1.9 L (3.5-5.0) g/dL Triglycerides 253.00 H (0.00-149.00) mg/dL 07/13/23 07/13/23 07/13/23 Range/Units 04:15 04:15 05:37 WBC 18.4 H (3.8-10.6) k/uL RBC 3.14 L (3.80-5.40) m/uL Hgb 8.5 L (11.4-16.0) gm/dL Hct 27.9 L (34.0-46.0) % MCHC 30.5 L (31.0-37.0) g/dL Plt Count 507 H (150-450) k/uL Neutrophils # 17.3 H (1.3-7.7) k/uL Lymphocytes # 0.3 L (1.0-4.8) k/uL ABG pH 7.34 L (7.35-7.45) ABG pO2 135 H (83-108) mmHg ABG Total CO2 26 H (19-24) mmol/L ABG O2 Saturation 98.5 H (94-97) % Chloride 116 H (98-107) mmol/L Carbon Dioxide (22-30) mmol/L BUN 36 H (7-17) mg/dL Creatinine 1.20 H (0.52-1.04) mg/dL Glucose 228 H (74-99) mg/dL POC Glucose (mg/dL) (70-110) mg/dL Calcium 7.8 L (8.4-10.2) mg/dL Phosphorus (2.5-4.5) mg/dL Magnesium 2.6 H (1.6-2.3) mg/dL Alkaline Phosphatase (38-126) U/L Total Protein (6.3-8.2) g/dL Albumin (3.5-5.0) g/dL Triglycerides (0.00-149.00) mg/dL 07/13/23 07/13/23 Range/Units 05:54 12:01 WBC (3.8-10.6) k/uL RBC (3.80-5.40) m/uL Hgb (11.4-16.0) gm/dL Hct (34.0-46.0) % MCHC (31.0-37.0) g/dL Plt Count (150-450) k/uL Neutrophils # (1.3-7.7) k/uL Lymphocytes # (1.0-4.8) k/uL ABG pH (7.35-7.45) ABG pO2 (83-108) mmHg ABG Total CO2 (19-24) mmol/L ABG O2 Saturation (94-97) % Chloride (98-107) mmol/L Carbon Dioxide (22-30) mmol/L BUN (7-17) mg/dL Creatinine (0.52-1.04) mg/dL Glucose (74-99) mg/dL POC Glucose (mg/dL) 242 H 224 H (70-110) mg/dL Calcium (8.4-10.2) mg/dL Phosphorus (2.5-4.5) mg/dL Magnesium (1.6-2.3) mg/dL Alkaline Phosphatase (38-126) U/L Total Protein (6.3-8.2) g/dL Albumin (3.5-5.0) g/dL Triglycerides (0.00-149.00) mg/dL Microbiology - Last 24 Hours (Table) 07/11/23 18:08 Gram Stain - Preliminary Abdomen Wound Culture - Preliminary Casandra albicans 07/11/23 00:22 Blood Culture Gram Stain - Preliminary Blood Blood Culture - Preliminary Group D Enterococcus 07/12/23 00:39 Gram Stain - Preliminary Sputum 07/07/23 14:07 Blood Culture - Final Blood Assessment and Plan (1) Abnormal CT of the chest Current Visit: Yes Status: Acute Code(s): R93.89 - ABNORMAL FINDINGS ON DX IMAGING OF OTH BODY STRUCTURES SNOMED Code(s): 45838075122185120 (2) Leukocytosis Current Visit: Yes Status: Acute Code(s): D72.829 - ELEVATED WHITE BLOOD CELL COUNT, UNSPECIFIED SNOMED Code(s): 456417282 (3) Pneumonia Current Visit: Yes Status: Acute Code(s): J18.9 - PNEUMONIA, UNSPECIFIED ORGANISM SNOMED Code(s): 588966424 Plan: 1-Patient is 82-year-old female electively admitted to hospital status post paraesophageal hernia repair with abdominal mesh now with worsening of her clinical condition and concerning for fluid collection posterior to the stomach concerning for possible gastric perforation and intra-abdominal abscess 2-Patient is s/p laparotomy with surgical repair of gastric perforation x 2 and drainage of the intra-abdominal abscess with cultures currently pending 3VRE bacteremia source likely intra-abdominal abscess , Abdominal cultures currently growing Casandra albicans. 4patient to continue the Zosyn daptomycin we will add Eraxis to cover for the Casandra cannot use Diflucan because of drug interaction with other medication the patient is on Prognosis remains to be guarded Dictation was produced using [employer] dictation software. please excuse any grammatical, word or spelling errors.
[2023-07-14] MEDS: BUDESONIDE 1 MG/2 ML NEBU INHALATION SCH ×2 (09:28→20:11)
[2023-07-14] MEDS: IPRATROPIUM-ALBUTEROL 3 ML NEB INHALATION SCH ×4 (09:28→20:11)
[2023-07-14] MEDS: LIDOCAINE 4% PATCH TOPICAL SCH (10:01)
[2023-07-14] MEDS: CHLORHEXIDINE GLUCONATE 15 ML CUP MUCOUS MEM SCH (10:01)
--- NOTE | 2023-07-14 10:39 | P.PN ---
Subjective Patient is evaluated today sitting up in the chair on medical floor. Heart rate is elevated this morning in the 150s irregular pending EKG and telemetry has also been ordered. Further recommendations pending the EKG. Patient denies any chest pain, no shortness of breath, states she feels anxious. Currently NPO. She is postoperative day #3 paraesophageal hernia repair. Has been receiving D5 1/2 NS at 75 mls/hr. Received a dose of IV lasix around 6am, BNP is elevated at 3460. 07/05/2023 Patient evaluated on the stepdown unit today currently postoperative day #4 paraesophageal hernia repair. Having 10/10 abdominal discomfort per patient duran vanessa passing gas and having increased bowel sounds. Receiving IV dilaudid for pain management. On IV cardizem at 5 will be transitioned to metoprolol and cleared for anticoagulation by surgery was started on eliquis. Patient had complaints of left sided weakness which strength appears equal on examination. Had brain CT showing degenerative and remote ischemic change with no evidence of acute hemorrhage or mass effect. 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 Neurology was consulted. Chest xray follow up yesterday reveals increasing air underneath the right hemidiaphragm could reflect colonic interposition. Pneumoperitoneum not excluded. Left basilar opacity may reflect atelectasis or pneumonia. Patient was receiving IV fluids which were stopped due to proBNP of over 7000. Received second dose of IV lasix. Labs today showing sodium 147, potassium 2.9. 07/06/2023 Patient is evaluated today on the stepdown unit currently postoperative day #5 paraesophageal hernia repair. Patient today is alert x 3 however confused thrashing around. Not complaining of pain. Has been started on full liquid diet and tolerating did have a large bowel movement. Abdomen soft. Remains on IV zosyn. 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 [place] patient had a TIA. No left sided weakness noted today. Possible left facial droop however difficult to assess due to patient not being able to sit still. Labs today reveal sodium 148, potassium 3.6, BUN 41, creatinine 1.33. TSH normal 0.701. Patient is urinating had a bladder scan today no retention noted. Echocardiogram was a technically difficult study however LV function appears grossly normal at 55%, mild MR and mild biatrial dilation. 07/07/2023 Patients mentation has not much improved nursing reports continued slurred speech patient unable to swallow pills. Neurology following, patient had repeat brain CT showing chronic appearing periventricular white matter ischemic changes. Small old lacunar infarct in the basal ganglion. She is postoperative day #6 paraesophageal hernia repair. Had new onset atrial fibrillation with RVR suspected TIA. Underwent EEG today showing toxic metabolic encephalopathy and moderate to severe background slowing. No epileptiform activity noted. Patient with some scattered wheezing today and chest xray was completed which reveals a left lower lobe infiltrate and or atelectasis. Patient does have IS at bedside has not been using. Will order ST consulation rule out aspiration. Recommend at this time conservative management and avoid narcotics if possible. Patient continues on D5 water at 75 mls/hr and sodium has normalized to 145, potassium 3.3, BUN 46, creatinine 1.13. B12 1816 and folate 7.60. Patient remains afe brile, heart rate of 72, blood pressure 124/71, 96% on 2L of oxygen. 07/08/2023 Patient relates a with family at the bedside. Mentation has improved she is more awake alert and less confused. Currently postoperative day #7 paraesophageal hernia repair. Did require IV amiodarone overnight due to elevated heart rate up into the 150s. Cardiology has transitioned her to oral amiodarone today her heart rate is in the 70-80s. Anticoagulation has been resumed today. Patient remains on D5 water at 75 mls/hr. Also on IV zosyn since post surgical. Procalcitonin is elevated at 0.60. Chest xray showing left lower lobe infiltrate and or atelectasis. Her urinalysis was abnormal small leukocyte esterase, cloudy urine. 07/09/2023 Patient is postoperative day #8 paraesophageal hernia repair. Patient has been transitioned to IV amiodarone at half rate and will continue; with plans to transition to oral amiodarone today. Heart rate has improved for the afib RVR. Surgery has okay the eliquis and she continues on 5 mg BID of eliquis. Patient has tolerated increased diet she is not complaining of much abdominal pain having some hypoactive bowel sounds she has not been able to get out of bed over the last few days due to her altered mentation. Had an abdomen pelvis CT done showing right upper lobe left lung which could represent atypical pneumonia. Small left and trace right pleural effusions no other definitive evidence for source of infectious process. There is no evidence for acute infectious process within the abdomen or pelvis. There is colonic diverticulosis. Today she has scattered audible wheezing today. She continues on duonebs QID and scheduled and remains on oxygen support. Family at the bedside updated on plan of care. 07/10/2023 Patient is postoperative day #9 paraesophageal hernia repair. Patient's bowel sounds were hypoactive yesterday and did vomit is morning per nursing the vomit was brown in color. She had an NG tube placed abdominal x-ray was done which s hows stable placement of NG tube. Additionally she remains on nasal cannula oxygen support with scattered wheezing. She did not tolerate prior diuresis and went in to acute kidney injury and for this reason she has been maintained on IV fluids. Her proBNP is still elevated at 4980. Patient had a follow-up chest x- ray showing increased haziness in the left lung correlate with serum BNP given the patient's cardiomyopathy related to rule out congestive heart failure. There is pulmonary vascular congestion. There is no evidence of pleural effusion focal consolidation or pneumothorax. We did do a chest ultrasound yesterday which does reveal a 8.3 cm left pleural effusion. Pulmonary was co nsulted for further evaluation and given patient a dose of IV Lasix today. Eliquis is now being held for a possible thoracentesis. Patient does have worsening white count 19.1 today, hemoglobin stable at 11.0, sodium 140, potassium 3.8, BUN of 14, creatinine 0.55. Viral panel is negative for influ kristal RSV and Covid. 07/11/2023 Patient is postoperative day #10 paraesophageal hernia repair. She has been maintained on the stepdown unit. In sinus mechanism and has been transitioned to oral amiodarone. Eliquis has been placed on hold for possible thoracentesis. Fluids were held, patient received a dose of IV lasix yesterday. Had an increase in white count up to 19. Repeat abdominal CT was done showing interval development of a fluid collection posterior to the stomach measuring 4 cm AP by 9.4 cm transverse. Moderate left and tiny right pleural effusions with associated atelectasis. Overnight patient developed acute chest pain, was found to have elevated D Dimer and also had troponin elevation, did have drop in BP down to 70/50s. She was moved to the intensive care unit. Chest xray continues to show moderate to large pleural effusion. Patient was noted to have left pneumothorax, left lower lobe infiltrate correlate for CHF moderate left pleural effusion is cardiomegaly, and left pleural effusion noted on follow up chest xray. Venous doppler negative for DVT. Labs today showing sodium 141, potassium 3.8, BUN 20, creatinine 0.80. Elevated D dimer of 9.00. Family at bedside was updated discussed need for chest tub placement and exploratory laporotomy. No further questions at this time. Daughter asking what next steps are if they don't want aggressive measures hospice care was discussed. 07/12/2023 Patient is evaluated postoperative day #11 paraesophageal hernia repair and p ostoperative day #1 repair of gastric perforation x 2 and drainage of abdominal abscess. Came back to the ICU postoperatively on the mechanical ventilator remains intubated and sedated. Patient also had placement of left sided chest tube by cardiothoracic team. Chest xray this AM reveals left sided chest tube in place. No appreciable pneumothorax. Ongoing small to moderate left pleural effusion with adjacent atelectasis or consolidation. Interstitial changes throughout the remainder of the left lung also persist. Patient had 1070 mls of drainage from the chest tube when it was placed. Blood cultures are showing gram positive cocci. White count today 19.2, hgb 9.8, BUN 35, creatinine 1.20, ma gnesium 2.2, potassium 3.9. D-Dimer was done and elevated at 9 unable to get the chest CTA currently had venous doppler which is negative for DVT bilaterally. She is on combination of IV daptomycin and zosyn for the bacteremia. On IV solumedrol. On levophed running at 20.6 mls/hr. She is getting TPN. 07/13/2023 this is a pleasant 52 years old female who initially admitted for repair of paraesophageal hernia status post laparoscopic surgical repair with mesh on 07/01. Also patient was found to have perforation with abdominal abscess status post exploratory laparotomy and lysis of adhesion, gastric repair and drainage of abscess on 07/11. Initial CAT scan of the abdomen and pelvis was reviewed to repeat the CAT scan showed interval development of fluid behind the stomach 4.9.4 centimeter. She is currently remains in the ICU sedated and intubated. She is on multiple antibiotic with daptomycin, Zosyn and Eraxis. She is on IV heparin drip, Cardizem drip 7.5 mg/h, IV Solu-Medrol 40 mg and pressors with Levophed. Also she is getting TPN nutrition and 30 mL/h. Echocardiogram showed ejection fraction of 55% Leukocytosis of 18,000 but patient also on his steroids. Hemoglobin came down from 11 down to 8.5. Creatinine up to 1.2 and 31st chemo followed closely. 07/14/2023 Patient remains in the ICU intubated and sedated. FiO2 40% and PEEP of 5 She has left-sided chest tube placed yesterday for left pleural effusion. Coelho catheter in place Vitas looks the same and patient is afebrile. She does not need Cardizem drip today. Levophed dose was lowered today to 0.01. TPN is running as well. JENI drain has minimal discharge Labs reviewed and she has mild leukocytosis 16,000 while she is on steroids. Hemoglobin dropped from 11 earlier days down to 8.5 yesterday and today 7.4. Creatinine improving down to 0.8. Sodium slightly elevated 147. She remains on broad-spectrum antibiotics with Eraxis, daptomycin and Zosyn. Blood culture was positive for grade D enterococcus. She is also on Cardizem drip at 7.5 mg, heparin drip per protocol and IV Solu- Medrol 40 mg Active Medications Generic Name Dose Route Start Last Admin Trade Name Freq PRN Reason Stop Dose Admin Albuterol/Ipratropium 3 ml 07/07/23 13:57 07/09/23 04:12 Ipratropium-Albuterol 3 Ml Neb INHALATION 3 ml RT-QID PRN Administration Shortness Of Breath Or Wheezing Albuterol/Ipratropium 3 ml 07/08/23 16:00 07/14/23 09:28 Ipratropium-Albuterol 3 Ml Neb INHALATION 3 ml RT-QID YUMIKO Administration Budesonide 1 mg 07/10/23 10:00 07/14/23 09:28 Budesonide 1 Mg/2 Ml Nebu INHALATION 1 mg RT-BID YUMIKO Administration Chlorhexidine Gluconate 15 ml 07/11/23 21:00 07/14/23 10:01 Chlorhexidine Gluconate 15 Ml Cup MUCOUS MEM 15 ml BID YUMIKO Administration Dextrose/Water 25 ml 12/19/23 14:48 Dextrose 50% Syringe 50 Ml IVP PER PROTOCOL PRN Hypoglycemia Protocol Dextrose/Water 50 ml 07/12/23 14:48 Dextrose 50% Syringe 50 Ml IVP PER PROTOCOL PRN Hypoglycemia Protocol Heparin Sodium (Porcine) 0 unit 07/13/23 13:53 07/13/23 21:23 Heparin Sodium 1,000 Un/Ml (10ml Vl) IV 4,050 unit PER PROTOCOL PRN Administration Low PTT Protocol Hydromorphone HCl 0.5 mg 07/12/23 03:20 07/12/23 11:37 Hydromorphone 0.5 Mg/0.5 Ml Syringe IVP 0.5 mg Q4HR PRN Administration Pain Hydromorphone HCl 1 mg 07/12/23 09:55 07/14/23 07:56 Hydromorphone 1 Mg/Ml 1 Ml Syringe IVP 1 mg Q3HR PRN Administration Pain Propofol 1,000 mg/ IV Solution 100 mls @ 6.084 mls/hr 07/11/23 15:45 07/14/23 06:02 IV 50 mcg/kg/min .[id number] YUMIKO 20.28 mls/hr Administration Protocol 15 MCG/KG/MIN Norepinephrine Bitartrate 4 mg 254 mls @ 7.727 mls/hr 07/11/23 19:00 07/14/23 07:47 / Sodium Chloride IV 0 mcg/kg/min .Q24H YUMIKO 0 mls/hr Titration Protocol 0.03 MCG/KG/MIN Daptomycin 500 mg/ Sodium 50 mls @ 100 mls/hr 07/12/23 00:00 07/14/23 00:33 Chloride IVPB 100 mls/hr Q24H YUMIKO Administration Protocol Piperacillin Sod/Tazobactam 100 mls @ 25 mls/hr 07/12/23 01:00 07/14/23 08:07 Sod 3.375 gm/ Sodium Chloride IVPB 25 mls/hr Q8H YUMIKO Administration Protocol Diltiazem HCl 125 mg/ Sodium 125 mls @ 7.5 mls/hr 07/13/23 01:30 07/14/23 07:15 Chloride IV 0 mg/hr .[id number] YUMIKO 0 mls/hr Infusion 7.5 MG/HR Anidulafungin 100 mg/ Sodium 100 mls @ 84 mls/hr 07/14/23 09:00 07/14/23 08:03 Chloride IVPB 84 mls/hr DAILY YUMIKO Administration Protocol Heparin Sodium/Sodium Chloride 250 mls @ 9.792 mls/hr 07/13/23 14:00 07/13/23 21:21 25,000 unit/ Sodium Chloride IV 15 units/kg/hr .Q24H YUMIKO 12.24 mls/hr Titration Protocol 12 UNITS/KG/HR Parenteral Vitamin Supplement 1,039 mls @ 60 mls/hr 07/14/23 13:00 10 ml/ Zinc/Copper/Manganese/ IV Selenium 1 ml/ Sodium Acetate .BY DURATION YUMIKO 20 meq/ Potassium Acetate 10 meq/ Calcium Gluconate 1 gm/ Potassium Phosphate 9 mmol/ Amino Acids/Dextrose Sodium Acetate 20 meq/ 1,028 mls @ 60 mls/hr 07/14/23 13:00 Potassium Acetate 10 meq/ IV Calcium Gluconate 1 gm/ .BY DURATION YUMIKO Potassium Phosphate 9 mmol/ Amino Acids/Dextrose Insulin Aspart 0 unit 07/12/23 18:00 07/14/23 05:40 Insulin Aspart (Novolog) 100 Unit/Ml Vial SQ 4 unit Q6HR YUMIKO Administration Protocol Lidocaine 1 patch 07/02/23 11:15 07/14/23 10:01 Lidocaine 4% Patch TOPICAL 1 patch DAILY [facility] Administration Protocol Methylprednisolone Sodium Succinate 40 mg 07/10/23 10:00 07/14/23 08:00 Methylprednisolone Sod Succi 40 Mg/Ml 1 Ml Vial IV 40 mg Q8HR YUMIKO Administration Metoclopramide HCl 10 mg 07/01/23 11:20 07/02/23 06:39 Metoclopramide 5 Mg/Ml 2 Ml Vial IVP 07/31/23 11:21 10 mg Q6H PRN Administration Nausea And Vomiting Metoprolol Tartrate 5 mg 07/07/23 21:51 07/13/23 00:52 Metoprolol Tartrate 5 Mg/5 Ml Vial IVP 5 mg Q6HR PRN Administration Tachyarrhythmias Miscellaneous Information 1 each 07/05/23 11:38 Potassium Replacement Protocol 1 Each Misc MISCELLANE DAILY PRN Per Protocol Protocol Miscellaneous Information 1 each 07/11/23 15:43 Magnesium Replacement Protocol 1 Each Misc MISCELLANE DAILY PRN Per Protocol Protocol Miscellaneous Information 1 each 07/11/23 15:43 Phosphorus Replacement Protoco 1 Each Misc MISCELLANE DAILY PRN Per Protocol Protocol Naloxone HCl 0.2 mg 07/01/23 11:20 07/11/23 03:17 Naloxone 0.4 Mg/Ml 1 Ml Vial IV 07/31/23 11:21 0.2 mg Q2M PRN Administration Opioid Reversal Ondansetron HCl 4 mg 07/01/23 11:20 07/10/23 20:52 Ondansetron 4 Mg/2 Ml Vial IVP 07/31/23 11:21 4 mg Q6HR PRN Administration Nausea And Vomiting Pantoprazole Sodium 40 mg 07/10/23 22:45 07/14/23 07:58 Pantoprazole 40 Mg/10 Ml Vial IVP 40 mg BID YUMIKO Administration Objective - Vital Signs Vital signs: Vital Signs Temp 98 F 07/14/23 08:00 Pulse 52 L 07/14/23 10:00 Resp 20 07/14/23 10:00 BP 113/51 07/14/23 10:00 Pulse Ox 99 07/14/23 10:00 FiO2 40 07/14/23 10:20 Intake & Output 07/13/23 07/14/23 07/14/23 18:59 06:59 18:59 Intake Total 3366.607 2861.845 534.753 Output Total 820 855 250 Balance 290.206 589.845 284.753 Weight 79.7 kg Intake: IV 520 936 449 A line 36 9 Anidulafungin 200 mg In 200 130 Sodium Chloride 0.9% 200 ml @ 84 mls/hr IVPB ONCE ONE Rx#:[id number] DAPTOmycin 500 mg In 50 Sodium Chloride 0.9% 50 ml @ 100 mls/hr IVPB Q24H [facility] Rx#:[id number] Mvi, Adult No.4 with Vit 660 180 K 10 ml Trace (Conc-1Ml/ Dose) 1 ml Sodium Acetate 30 meq Potassium Acetate 20 meq Calcium Gluconate 1 gm In Amino Acid 5%- D15w 1,000 ml @ 60 mls/hr IV .BY DURATION [facility] Rx#: [id number] Piperacillin-Tazobactam 3 200 100 .375 gm In Sodium Chloride 0.9% 100 ml @ 25 mls/hr IVPB Q8HR [facility] Rx# :[id number] Sodium Acetate 30 meq 60 Potassium Acetate 20 meq Calcium Gluconate 1 gm In Amino Acid 5%-D15w 1,000 ml @ 60 mls/hr IV .BY DURATION [facility] Rx#: [id number] kvo 120 130 30 Intake, IV Titration 590.206 508.845 85.753 Amount Diltiazem 125 mg In 92.000 75.75 Sodium Chloride 0.9% 100 ml @ 7.5 MG/HR 7.5 mls/hr IV .[id number] YUMIKO Rx#: [id number] Heparin Sod,Pork in 0.45% 69.85 NaCl 25,000 unit In 0.45 % NaCl 1 250ml.bag @ 12 UNITS/KG/HR 9.792 mls/hr IV .Q24H [facility] Rx#: [id number] Norepinephrine 4 mg In 242.577 175.693 10.003 Sodium Chloride 0.9% 250 ml @ 0.03 MCG/KG/MIN 7. 727 mls/hr IV .Q24H [facility] Rx#:[id number] propofoL 1,000 mg In 255.629 263.302 Empty Bag 1 bag @ 15 MCG/ KG/MIN 6.084 mls/hr IV . [id number] [facility] Rx#:[id number] Output: Chest Tube Drainage 80 40 20 Chest Tube Left 80 40 20 Drainage 50 45 Left Abdomen 20 25 Right Abdomen 30 20 Urine 690 770 230 Other: Voiding Method Indwelling Catheter Indwelling Catheter ABP, PAP, CO, CI - Last Documented Arterial Blood Pressure 128/41 - Exam -GENERAL: The patient is intubated and sedated HEENT: Pupils are round and equally reacting to light. EOMI. No scleral icterus. No conjunctival pallor. Normocephalic, atraumatic. No pharyngeal erythema. No thyromegaly. CARDIOVASCULAR: S1 and S2 present. No murmurs, rubs, or gallops. PULMONARY: Chest is clear to auscultation, no wheezing , no crackles. -ABDOMEN: Soft, nontender, nondistended, normoactive bowel sounds. No palpable organomegaly. Coelho catheter in place MUSCULOSKELETAL: No joint swelling or deformity. EXTREMITIES: No cyanosis, clubbing, or pedal edema. NEUROLOGICAL: Gross neurological examination did not reveal any focal deficits. SKIN: No rashes. no petechiae. - Labs CBC & Chem 7: 07/14/23 04:15 07/14/23 04:15 Labs: Abnormal Lab Results - Last 24 Hours (Table) 07/13/23 07/13/23 07/13/23 Range/Units 04:15 12:01 14:00 WBC (3.8-10.6) k/uL RBC (3.80-5.40) m/uL Hgb (11.4-16.0) gm/dL Hct (34.0-46.0) % MCHC (31.0-37.0) g/dL Plt Count (150-450) k/uL Neutrophils # (1.3-7.7) k/uL Lymphocytes # (1.0-4.8) k/uL PT 9.4 L (10.0-12.5) sec APTT (22.0-30.0) sec ABG pO2 (83-108) mmHg ABG Total CO2 (19-24) mmol/L ABG O2 Saturation (94-97) % Sodium (137-145) mmol/L Chloride (98-107) mmol/L BUN (7-17) mg/dL Glucose (74-99) mg/dL POC Glucose (mg/dL) 224 H (70-110) mg/dL Calcium (8.4-10.2) mg/dL Phosphorus (2.5-4.5) mg/dL Magnesium (1.6-2.3) mg/dL Iron 9 L (50-170) UG/DL TIBC 183 L (228-460) UG/DL % Saturation 4.92 L (12.00-45.00) Transferrin 131.0 L (204.0-354.0) mg/dL 07/13/23 07/13/23 07/13/23 Range/Units 17:20 20:21 21:35 WBC (3.8-10.6) k/uL RBC (3.80-5.40) m/uL Hgb (11.4-16.0) gm/dL Hct (34.0-46.0) % MCHC (31.0-37.0) g/dL Plt Count (150-450) k/uL Neutrophils # (1.3-7.7) k/uL Lymphocytes # (1.0-4.8) k/uL PT 9.6 L (10.0-12.5) sec APTT 32.5 H (22.0-30.0) sec ABG pO2 (83-108) mmHg ABG Total CO2 (19-24) mmol/L ABG O2 Saturation (94-97) % Sodium (137-145) mmol/L Chloride (98-107) mmol/L BUN (7-17) mg/dL Glucose (74-99) mg/dL POC Glucose (mg/dL) 255 H 274 H (70-110) mg/dL Calcium (8.4-10.2) mg/dL Phosphorus (2.5-4.5) mg/dL Magnesium (1.6-2.3) mg/dL Iron (50-170) UG/DL TIBC (228-460) UG/DL % Saturation (12.00-45.00) Transferrin (204.0-354.0) mg/dL 07/14/23 07/14/23 07/14/23 Range/Units 00:01 02:10 04:15 WBC (3.8-10.6) k/uL RBC (3.80-5.40) m/uL Hgb (11.4-16.0) gm/dL Hct (34.0-46.0) % MCHC (31.0-37.0) g/dL Plt Count (150-450) k/uL Neutrophils # (1.3-7.7) k/uL Lymphocytes # (1.0-4.8) k/uL PT (10.0-12.5) sec APTT 65.5 H (22.0-30.0) sec ABG pO2 (83-108) mmHg ABG Total CO2 (19-24) mmol/L ABG O2 Saturation (94-97) % Sodium 147 H (137-145) mmol/L Chloride 118 H (98-107) mmol/L BUN 37 H (7-17) mg/dL Glucose 223 H (74-99) mg/dL POC Glucose (mg/dL) 280 H (70-110) mg/dL Calcium 8.0 L (8.4-10.2) mg/dL Phosphorus 2.2 L (2.5-4.5) mg/dL Magnesium 2.7 H (1.6-2.3) mg/dL Iron (50-170) UG/DL TIBC (228-460) UG/DL % Saturation (12.00-45.00) Transferrin (204.0-354.0) mg/dL 07/14/23 07/14/23 07/14/23 Range/Units 04:15 05:24 05:37 WBC 16.9 H (3.8-10.6) k/uL RBC 2.75 L (3.80-5.40) m/uL Hgb 7.4 L (11.4-16.0) gm/dL Hct 24.8 L (34.0-46.0) % MCHC 29.8 L (31.0-37.0) g/dL Plt Count 475 H (150-450) k/uL Neutrophils # 15.7 H (1.3-7.7) k/uL Lymphocytes # 0.4 L (1.0-4.8) k/uL PT (10.0-12.5) sec APTT (22.0-30.0) sec ABG pO2 113 H (83-108) mmHg ABG Total CO2 26 H (19-24) mmol/L ABG O2 Saturation 98.3 H (94-97) % Sodium (137-145) mmol/L Chloride (98-107) mmol/L BUN (7-17) mg/dL Glucose (74-99) mg/dL POC Glucose (mg/dL) 236 H (70-110) mg/dL Calcium (8.4-10.2) mg/dL Phosphorus (2.5-4.5) mg/dL Magnesium (1.6-2.3) mg/dL Iron (50-170) UG/DL TIBC (228-460) UG/DL % Saturation (12.00-45.00) Transferrin (204.0-354.0) mg/dL Microbiology - Last 24 Hours (Table) 07/12/23 00:39 Gram Stain - Final Sputum Sputum Culture - Final Casandra albicans 07/11/23 18:08 Gram Stain - Final Abdomen Wound Culture - Final Casandra albicans 07/12/23 16:00 Blood Culture - Preliminary Blood 07/11/23 00:22 Blood Culture Gram Stain - Preliminary Blood Blood Culture - Preliminary Group D Enterococcus Assessment and Plan Assessment: -Recurrent paraesophageal hernia , s/p laproscopic surgical repair with mesh and partial gastrectomy on a 07/01 -Abdominal abscess behind the stomach, status post repair of gastric perforation x 2 and drainage of abdominal abscess and lysis of adhesions with JENI drain -Left sided pleural effusion and Interval development of left pneumothorax status post chest tube placement with over 1 L of fluid drained initially ple ural fluid sent for cytology. -Enterococcus Faecium bacteremia possibly VRE on course of IV daptomycin and IV zosyn -Septic shock due to gastric perforation requiring vasopressor support -Anemia with drop in hemoglobin while on heparin drip. We will do anemia workup and monitor hemoglobin closely. Also would put Protonix twice a day -New onset atrial fibrillation with RVR treated with IV cardizem/IV amiodarone patient is currently maintaining sinus rhythm with PVCs/PACs. Also she is on heparin drip -COPD with mild acute excerbation receiving systemic steroids -Acute kidney injury likely ATN/from sepsis -Hypokalemia normalized -Hypernatremia, resolved -Altered mental status likely acute metabolic encephalopathy from DANIEL and hypernatremia/ TIA neurology following. Patient is now intubated and sedated. -Pt reports left sided weakness neurology consultation patient had brain CT lik yolanda due to TIA and symptoms have resolved. On statin therapy. and was placed on eliquis 5 mg BID. -Leukocytosis worsening -Troponin elevation rule out ACS cardiology following. -Hypertension -Hyperlipidemia -Restless leg syndrome -Gastroesophageal reflux disease -Anxiety/Depression -Chronic back pain with prior lumbar decompression and fusion -Former nicotine use -Hx of TIA DVT prophylaxis with heparin drip GI prophylaxis on Protonix Prognosis is guarded Thank you for consulting us, we will follow up with you
[2023-07-14 11:02] LABS: ABG Base Excess -0.5 mmol/L; ABG HCO3 25 mmol/L (21-25); ABG Oxygen Saturation 97.6 % (94-97); ABG PCO2 42 mmHg (35-45); ABG PH 7.38 (7.35-7.45); ABG PO2 96 mmHg (83-108); ABG TCO2 26 mmol/L (19-24); Allen Test Performed? Yes
--- NOTE | 2023-07-14 11:22 | P.PN ---
Subjective Progress Note Date: 07/14/23 Principal diagnosis: Left pleural effusion, status post placement of left-sided pleural chest tube by Dr. Perkins 07/11/2023 The patient was seen and examined this morning laying in bed in the intensive care unit, sedated on mechanical ventilation. Currently in sinus rhythm, blood pressure stable. Ventilator adjustments per pulmonology. Left-sided pleural chest tube remains present, 170 mL serous drainage in the last 24 hours. Objective - Vital Signs Vital signs: Vital Signs Temp 98 F 07/14/23 08:00 Pulse 52 L 07/14/23 10:00 Resp 20 07/14/23 10:00 BP 113/51 07/14/23 10:00 Pulse Ox 99 07/14/23 10:00 FiO2 40 07/14/23 09:28 Intake & Output 07/13/23 07/14/23 07/14/23 18:59 06:59 18:59 Intake Total 2947.020 6121.845 85.753 Output Total 820 855 Balance 290.206 589.845 85.753 Weight 79.7 kg Intake: IV 520 936 A line 36 Anidulafungin 200 mg In 200 Sodium Chloride 0.9% 200 ml @ 84 mls/hr IVPB ONCE ONE Rx#:[id number] DAPTOmycin 500 mg In 50 Sodium Chloride 0.9% 50 ml @ 100 mls/hr IVPB Q24H [facility] Rx#:[id number] Mvi, Adult No.4 with Vit 660 K 10 ml Trace (Conc-1Ml/ Dose) 1 ml Sodium Acetate 30 meq Potassium Acetate 20 meq Calcium Gluconate 1 gm In Amino Acid 5%- D15w 1,000 ml @ 60 mls/hr IV .BY DURATION [facility] Rx#: [id number] Piperacillin-Tazobactam 3 200 .375 gm In Sodium Chloride 0.9% 100 ml @ 25 mls/hr IVPB Q8HR [facility] Rx# :[id number] Sodium Acetate 30 meq 60 Potassium Acetate 20 meq Calcium Gluconate 1 gm In Amino Acid 5%-D15w 1,000 ml @ 60 mls/hr IV .BY DURATION [facility] Rx#: [id number] kvo 120 130 Intake, IV Titration 590.206 508.845 85.753 Amount Diltiazem 125 mg In 92.000 75.75 Sodium Chloride 0.9% 100 ml @ 7.5 MG/HR 7.5 mls/hr IV .[id number] [facility] Rx#: [id number] Heparin Sod,Pork in 0.45% 69.85 NaCl 25,000 unit In 0.45 % NaCl 1 250ml.bag @ 12 UNITS/KG/HR 9.792 mls/hr IV .Q24H [facility] Rx#: [id number] Norepinephrine 4 mg In 242.577 175.693 10.003 Sodium Chloride 0.9% 250 ml @ 0.03 MCG/KG/MIN 7. 727 mls/hr IV .Q24H [facility] Rx#:[id number] propofoL 1,000 mg In 255.629 263.302 Empty Bag 1 bag @ 15 MCG/ KG/MIN 6.084 mls/hr IV . [id number] [facility] Rx#:[id number] Output: Chest Tube Drainage 80 40 Chest Tube Left 80 40 Drainage 50 45 Left Abdomen 20 25 Right Abdomen 30 20 Urine 690 770 Other: Voiding Method Indwelling Catheter Indwelling Catheter ABP, PAP, CO, CI - Last Documented Arterial Blood Pressure 128/41 - Exam CONSTITUTIONAL: Remains sedated on mechanical ventilation RESPIRATORY: Lungs sounds diminished bilaterally. Respirations even, nonlabored. Currently on cpap with FiO2 40% 5/5. 7.0 ETT present, 22@ the lip CARDIOVASCULAR: S1, S2 present. Regular rate and rhythm, sinus rhythm on telemetry. Palpable peripheral pulses bilaterally. No edema present. SCDs present. GASTROINTESTINAL: Abdomen soft, tender, nondistended. Hypoactive bowel sounds present. NGT present. GENITOURINARY: Coelho present draining clear, yellow urine INTEGUMENTARY: Skin is warm, abd incision covered with dry intact dressing, bilateral JENI drains present NEUROLOGIC: Sedated MUSKULOSKELETAL: Able to move all extremities although upper extremities restrained INVASIVE LINES AND TUBES: Left pleural chest tube present and connected to wall suction, no air leaks present, 170 mL serosanguineous drainage in the last 24 hours - Allied health notes Allied health notes reviewed: nursing - Labs CBC & Chem 7: 07/14/23 04:15 07/14/23 04:15 Labs: Abnormal Lab Results - Last 24 Hours (Table) 07/13/23 07/13/23 07/13/23 Range/Units 04:15 12:01 14:00 WBC (3.8-10.6) k/uL RBC (3.80-5.40) m/uL Hgb (11.4-16.0) gm/dL Hct (34.0-46.0) % MCHC (31.0-37.0) g/dL Plt Count (150-450) k/uL Neutrophils # (1.3-7.7) k/uL Lymphocytes # (1.0-4.8) k/uL PT 9.4 L (10.0-12.5) sec APTT (22.0-30.0) sec ABG pO2 (83-108) mmHg ABG Total CO2 (19-24) mmol/L ABG O2 Saturation (94-97) % Sodium (137-145) mmol/L Chloride (98-107) mmol/L BUN (7-17) mg/dL Glucose (74-99) mg/dL POC Glucose (mg/dL) 224 H (70-110) mg/dL Calcium (8.4-10.2) mg/dL Phosphorus (2.5-4.5) mg/dL Magnesium (1.6-2.3) mg/dL Iron 9 L (50-170) UG/DL TIBC 183 L (228-460) UG/DL % Saturation 4.92 L (12.00-45.00) Transferrin 131.0 L (204.0-354.0) mg/dL 07/13/23 07/13/23 07/13/23 Range/Units 17:20 20:21 21:35 WBC (3.8-10.6) k/uL RBC (3.80-5.40) m/uL Hgb (11.4-16.0) gm/dL Hct (34.0-46.0) % MCHC (31.0-37.0) g/dL Plt Count (150-450) k/uL Neutrophils # (1.3-7.7) k/uL Lymphocytes # (1.0-4.8) k/uL PT 9.6 L (10.0-12.5) sec APTT 32.5 H (22.0-30.0) sec ABG pO2 (83-108) mmHg ABG Total CO2 (19-24) mmol/L ABG O2 Saturation (94-97) % Sodium (137-145) mmol/L Chloride (98-107) mmol/L BUN (7-17) mg/dL Glucose (74-99) mg/dL POC Glucose (mg/dL) 255 H 274 H (70-110) mg/dL Calcium (8.4-10.2) mg/dL Phosphorus (2.5-4.5) mg/dL Magnesium (1.6-2.3) mg/dL Iron (50-170) UG/DL TIBC (228-460) UG/DL % Saturation (12.00-45.00) Transferrin (204.0-354.0) mg/dL 07/14/23 07/14/23 07/14/23 Range/Units 00:01 02:10 04:15 WBC (3.8-10.6) k/uL RBC (3.80-5.40) m/uL Hgb (11.4-16.0) gm/dL Hct (34.0-46.0) % MCHC (31.0-37.0) g/dL Plt Count (150-450) k/uL Neutrophils # (1.3-7.7) k/uL Lymphocytes # (1.0-4.8) k/uL PT (10.0-12.5) sec APTT 65.5 H (22.0-30.0) sec ABG pO2 (83-108) mmHg ABG Total CO2 (19-24) mmol/L ABG O2 Saturation (94-97) % Sodium 147 H (137-145) mmol/L Chloride 118 H (98-107) mmol/L BUN 37 H (7-17) mg/dL Glucose 223 H (74-99) mg/dL POC Glucose (mg/dL) 280 H (70-110) mg/dL Calcium 8.0 L (8.4-10.2) mg/dL Phosphorus 2.2 L (2.5-4.5) mg/dL Magnesium 2.7 H (1.6-2.3) mg/dL Iron (50-170) UG/DL TIBC (228-460) UG/DL % Saturation (12.00-45.00) Transferrin (204.0-354.0) mg/dL 07/14/23 07/14/23 07/14/23 Range/Units 04:15 05:24 05:37 WBC 16.9 H (3.8-10.6) k/uL RBC 2.75 L (3.80-5.40) m/uL Hgb 7.4 L (11.4-16.0) gm/dL Hct 24.8 L (34.0-46.0) % MCHC 29.8 L (31.0-37.0) g/dL Plt Count 475 H (150-450) k/uL Neutrophils # 15.7 H (1.3-7.7) k/uL Lymphocytes # 0.4 L (1.0-4.8) k/uL PT (10.0-12.5) sec APTT (22.0-30.0) sec ABG pO2 113 H (83-108) mmHg ABG Total CO2 26 H (19-24) mmol/L ABG O2 Saturation 98.3 H (94-97) % Sodium (137-145) mmol/L Chloride (98-107) mmol/L BUN (7-17) mg/dL Glucose (74-99) mg/dL POC Glucose (mg/dL) 236 H (70-110) mg/dL Calcium (8.4-10.2) mg/dL Phosphorus (2.5-4.5) mg/dL Magnesium (1.6-2.3) mg/dL Iron (50-170) UG/DL TIBC (228-460) UG/DL % Saturation (12.00-45.00) Transferrin (204.0-354.0) mg/dL Microbiology - Last 24 Hours (Table) 07/11/23 18:08 Gram Stain - Final Abdomen Wound Culture - Final Casandra albicans 07/12/23 16:00 Blood Culture - Preliminary Blood 07/12/23 00:39 Gram Stain - Preliminary Sputum Sputum Culture - Preliminary 07/11/23 00:22 Blood Culture Gram Stain - Preliminary Blood Blood Culture - Preliminary Group D Enterococcus - Imaging and Cardiology Chest x-ray: image reviewed Assessment and Plan Assessment: Left pleural effusion, status post placement of left pleural chest tube S/P repair of paraesophageal hernia Possible abdominal abscess Group D enterococcus bacteremia COPD Metabolic encephalopathy DANIEL HTN PAF PIPPA GERD Previous tobacco dependence Plan: Continue chest tube to continuous wall suction, monitor output, will leave chest tubes in until after extubation Will monitor daily CXR Ventilator management per pulmonology, once extubated encourage incentive s pirometry Medical management of other comorbidities per general surgery, pulmonology, cardiology, internal medicine, infectious disease More recommendations regarding chest tube to follow
[2023-07-14] MEDS: HEPARIN SOD,PORK IN 0.45% NACL 25,000 UNIT in 0.45% NACL 1 250ML.BAG IV SCH (11:29)
--- NOTE | 2023-07-14 11:44 | P.PN ---
Subjective Progress Note Date: 07/14/23 Principal diagnosis: Respiratory failure. This is an 82-year-old female with history of multiple medical problems including hypertension, CVA, dyslipidemia, iron deficiency anemia, depression and generalized anxiety disorder, patient was also noted to have recurrent paraesophageal hiatal hernia. On 07/01/2023, patient was admitted by Dr. Kendrick for elective laparoscopic repair of paraesophageal hernia with absorbable mesh. Procedure was done on 07/01/2023, and the patient was managed medically by internal medicine after the surgery. Since her admission till now, patient has been seen by many consultants including internal medicine, cardiology, general surgery, neurology, infectious disease, all along the patient was noted to have a small left pleural effusion, which was noted to be present 2 days after her surgery, and this pleural effusion was not present back in December of 2022 based on an old chest x-ray clearly this pleural effusion is considered relatively new and developed shortly after her surgery. Echocardiogram on this patient showed good ejection fraction, she had mild pulmonary hypertension, and she had moderate tricuspid regurgitation and sclerotic aortic valve was noted but no stenosis. On this admission the patient developed new onset paroxysmal atrial fibrillation, hence the patient was given metoprolol, and she was also placed on eliquis. Amiodarone was added. And intermittently the patient has been receiving Lasix for presumptive congestive heart failure. Ultrasound of the chest on 07/09 showed moderate left pleural effusion and small right pleural effusion, left side is amenable for thoracentesis. However the patient has been on eliquis all along, and I am recommending that we hold the eliquis today, and possibly consider thoracentesis in the next 24 hours. In the meantime patient will be given a dose of diuretics, I believe most likely the fluid is cardiogenic in nature unless proven otherwise. Again this fluid was not present prior to her admission. Not to mention during my examination the patient, she had diffuse rhonchi and wheezes bilaterally, she does have a nasogastric tube in place, and she definitely needs to be placed on bronchodilators to optimize her pulmonary status. Patient seems to have large nasogastric output today. Chest x-ray this morning showed congestive changes with left-sided pleural effusion. Possibility of congestive heart failure is very likely considering the chest x-ray appearan ce. BNP level today is almost 5000. Progress note dated 07/11/2023. 82-year-old female seen yesterday in consultation by my partner. The patient was admitted back on July 01, for an elective repair of a hiatal hernia. The patient's surgery took place on July 01. The patient was brought to the intensive care unit, on July 10, for atrial fibrillation with RVR, and low blood pressure. The patient is seen today in room 259. The patient's currently on Zosyn. The patient's on a liter high flow oxygen, and has an NG tube in place. The patient's getting 0.9 at KVO. A computed tomography scan of the abdomen and pelvis, apparently has revealed a fluid collection, in the abdomen. The surgery is considering exploratory laparotomy. In addition, because of new onset atrial fibrillation, the patient will have Dopplers of lower extremities. White count 13, hemoglobin 11, platelet count normal. D-dimer was 9. Blood gases show pO2 of 69, pCO2 45, and a pH of 7.4. This was on 35% oxygen. Sodium 141, potassium 3.8, chlorides 108, CO2 26, BUN 20, creatinine 0.8. Troponins were 0.096 and 0.144. Albumin was 2.2. Blood cultures are negative. Chest x- ray reveals a left lower lobe infiltrate with a left pleural effusion, and a possible left-sided pneumothorax. CT of the abdomen shows a interval development of a fluid collection, posterior to the stomach, measuring 4 cm x 9.4 cm. Progress note dated 07/12/2023. 82-year-old female seen in consultation 2 days ago by my partner. The patient was seen today in the intensive care unit. The patient had surgery yesterday. A computed tomography scan revealed an abnormality, posterior to the stomach. The patient is postop day #1, status post exploratory laparotomy, repair of gastric perforation, drainage of abdominal abscess, and lysis of adhesions. The surgery was done by Dr. La. The patient came back to the intensive care unit, on the mechanical ventilator. She remains on the mechanical ventilator. She is on the volume assist control, rate 20, tidal volume 400, FiO2 50%, and PEEP of 5. Blood gases show pO2 111, pCO2 of 40, and a pH is 7.37. The patient's getting lactated Ringer's at 75 mL an hour, propofol at 45 mcg/kg/m, norepinephrine, which is been weaned off, and a Cardizem drip of 5 mg an hour. The chest tube was placed by cardiothoracic surgery on the left side yesterday. The patient currently is on Zosyn and daptomycin. Blood cultures are apparently positive for possible streptococci, and vancomycin-resistant enterococci. White count 19.2, hemoglobin 9.8, hematocrit 30.7, and platelet count 488,000. Sodium 142, potassium 3.9, chlorides 113, CO2 22, BUN 35, creatinine 1.20. Magnesium is 2.2. Chest x-ray shows relatively clear right lung, properly positioned endotracheal tube, a left-sided chest tube, and some volume off in the left chest, with a residual left-sided pleural effusion. Progress note dated 07/13/2023. 82-year-old female seen in consultation 3 days ago, by my partner. The patient is currently in the intensive care unit, and continues on the mechanical ve ntilator. The patient is postop day #1, status post repair of the gastric perforation, drainage of abdominal abscess, exploratory laparotomy, and lysis of adhesions. The patient remains on mechanical ventilator, with volume assist control as a mode, rate 20, tidal volume 400, FiO2 40%, PEEP of 5. Blood gases show a PaO2 of 135, pCO2 45, and pH is 7.34. Blood gases were done on 50% FiO2. The patient is on Cardizem is 7.5 mg an hour, norepinephrine at about 5 mcg/m, and saline at KVO. The patient's also getting TPN at 30 mL an hour. The patient continues on Zosyn and daptomycin. Propofol is running at 40 mcg/kg/m. White count 18.4, hemoglobin 8.5, hematocrit 27.9, and platelet count 507,000. Sodium 144, potassium 4, chlorides 116, CO2 23, BUN 36, and creatinine 1.20. Microbiology is positive for group D enterococcus in the blood. Chest x-ray shows a left thoracotomy tube, with a small left-sided effusion. Doppler of the left upper extremity, was negative for DVT. Progress note dated 07/14/2023. 82-year-old female, seen today in room 259. She remains on mechanical ventil ator. She is postop day #2, status post repair of gastric perforation, drainage of abdominal abscess, exploratory laparotomy, and lysis of adhesions. Currently, the patient is on the volume assist control, rate 20, tidal volume 400, FiO2 40%, blood gases show pO2 113, pCO2 42, and pH is 7.39. She still has a left chest tube in place. The patient's on TPN at 60 mL an hour, propofol at 50 mcg/kg/m, and IV heparin. The patient also continues on daptomycin, Zosyn, and Eraxis. The patient will have a daily interruption of sedation, and a spontaneous breathing trial today. White count 16.9, in room 7.4, hematocrit 24.8, platelet count 475,000. Sodium 147, potassium 3.7, chlorides 118, CO2 22, BUN 37, and creatinine 0.85. Blood cultures on the of positive for group D enterococcus. Chest x-ray shows a small to moderate left-sided pleural effusion, and a left-sided chest tube. Objective - Vital Signs Vital signs: Vital Signs Temp 98 F 07/14/23 08:00 Pulse 52 L 07/14/23 10:00 Resp 20 07/14/23 10:00 BP 113/51 07/14/23 10:00 Pulse Ox 97 07/14/23 11:21 FiO2 40 07/14/23 10:20 Intake & Output 07/13/23 07/14/23 07/14/23 18:59 06:59 18:59 Intake Total 7259.800 1298.845 609.282 Output Total 820 855 250 Balance 290.206 589.845 359.282 Weight 79.7 kg Intake: IV 520 936 449 A line 36 9 Anidulafungin 200 mg In 200 130 Sodium Chloride 0.9% 200 ml @ 84 mls/hr IVPB ONCE ONE Rx#:[id number] DAPTOmycin 500 mg In 50 Sodium Chloride 0.9% 50 ml @ 100 mls/hr IVPB Q24H [facility] Rx#:[id number] Mvi, Adult No.4 with Vit 660 180 K 10 ml Trace (Conc-1Ml/ Dose) 1 ml Sodium Acetate 30 meq Potassium Acetate 20 meq Calcium Gluconate 1 gm In Amino Acid 5%- D15w 1,000 ml @ 60 mls/hr IV .BY DURATION [facility] Rx#: [id number] Piperacillin-Tazobactam 3 200 100 .375 gm In Sodium Chloride 0.9% 100 ml @ 25 mls/hr IVPB Q8HR [facility] Rx# :[id number] Sodium Acetate 30 meq 60 Potassium Acetate 20 meq Calcium Gluconate 1 gm In Amino Acid 5%-D15w 1,000 ml @ 60 mls/hr IV .BY DURATION [facility] Rx#: [id number] kvo 120 130 30 Intake, IV Titration 590.206 508.845 160.282 Amount Diltiazem 125 mg In 92.000 75.75 Sodium Chloride 0.9% 100 ml @ 7.5 MG/HR 7.5 mls/hr IV .[id number] [facility] Rx#: [id number] Heparin Sod,Pork in 0.45% 69.85 NaCl 25,000 unit In 0.45 % NaCl 1 250ml.bag @ 12 UNITS/KG/HR 9.792 mls/hr IV .Q24H [facility] Rx#: [id number] Norepinephrine 4 mg In 242.577 175.693 10.003 Sodium Chloride 0.9% 250 ml @ 0.03 MCG/KG/MIN 7. 727 mls/hr IV .Q24H [facility] Rx#:[id number] propofoL 1,000 mg In 255.629 263.302 74.529 Empty Bag 1 bag @ 15 MCG/ KG/MIN 6.084 mls/hr IV . [id number] [facility] Rx#:[id number] Output: Chest Tube Drainage 80 40 20 Chest Tube Left 80 40 20 Drainage 50 45 Left Abdomen 20 25 Right Abdomen 30 20 Urine 690 770 230 Other: Voiding Method Indwelling Catheter Indwelling Catheter ABP, PAP, CO, CI - Last Documented Arterial Blood Pressure 128/41 - Exam No acute distress, patient's sedated, with an orally placed endotracheal tube, and NG tube. HEENT examination is grossly unremarkable. Mucous membranes are moist. No oral lesions. NG tube in place. Neck supple. Full range of motion. No adenopathy thyromegaly or neck vein distention. Cardiovascular examination reveals regular rhythm rate. S1-S2 normal. No S3 or S4. No discernible murmur noted. Heart sounds are distant. Heart rate 52 bpm. Lungs reveal scattered rhonchi. No wheezes or crackles. Breath sounds equal. Saturations 97 %. A left-sided chest tube is noted. Abdomen soft, without bowel sounds. Extremities are intact. No cyanosis clubbing or edema. Skin is without rash or lesion. Neurologic examination not able to be evaluated at this time. - Labs CBC & Chem 7: 07/14/23 04:15 07/14/23 04:15 Labs: Abnormal Lab Results - Last 24 Hours (Table) 07/13/23 07/13/23 07/13/23 Range/Units 04:15 12:01 14:00 WBC (3.8-10.6) k/uL RBC (3.80-5.40) m/uL Hgb (11.4-16.0) gm/dL Hct (34.0-46.0) % MCHC (31.0-37.0) g/dL Plt Count (150-450) k/uL Neutrophils # (1.3-7.7) k/uL Lymphocytes # (1.0-4.8) k/uL PT 9.4 L (10.0-12.5) sec APTT (22.0-30.0) sec ABG pO2 (83-108) mmHg ABG Total CO2 (19-24) mmol/L ABG O2 Saturation (94-97) % Sodium (137-145) mmol/L Chloride (98-107) mmol/L BUN (7-17) mg/dL Glucose (74-99) mg/dL POC Glucose (mg/dL) 224 H (70-110) mg/dL Calcium (8.4-10.2) mg/dL Phosphorus (2.5-4.5) mg/dL Magnesium (1.6-2.3) mg/dL Iron 9 L (50-170) UG/DL TIBC 183 L (228-460) UG/DL % Saturation 4.92 L (12.00-45.00) Transferrin 131.0 L (204.0-354.0) mg/dL 07/13/23 07/13/23 07/13/23 Range/Units 17:20 20:21 21:35 WBC (3.8-10.6) k/uL RBC (3.80-5.40) m/uL Hgb (11.4-16.0) gm/dL Hct (34.0-46.0) % MCHC (31.0-37.0) g/dL Plt Count (150-450) k/uL Neutrophils # (1.3-7.7) k/uL Lymphocytes # (1.0-4.8) k/uL PT 9.6 L (10.0-12.5) sec APTT 32.5 H (22.0-30.0) sec ABG pO2 (83-108) mmHg ABG Total CO2 (19-24) mmol/L ABG O2 Saturation (94-97) % Sodium (137-145) mmol/L Chloride (98-107) mmol/L BUN (7-17) mg/dL Glucose (74-99) mg/dL POC Glucose (mg/dL) 255 H 274 H (70-110) mg/dL Calcium (8.4-10.2) mg/dL Phosphorus (2.5-4.5) mg/dL Magnesium (1.6-2.3) mg/dL Iron (50-170) UG/DL TIBC (228-460) UG/DL % Saturation (12.00-45.00) Transferrin (204.0-354.0) mg/dL 07/14/23 07/14/23 07/14/23 Range/Units 00:01 02:10 04:15 WBC (3.8-10.6) k/uL RBC (3.80-5.40) m/uL Hgb (11.4-16.0) gm/dL Hct (34.0-46.0) % MCHC (31.0-37.0) g/dL Plt Count (150-450) k/uL Neutrophils # (1.3-7.7) k/uL Lymphocytes # (1.0-4.8) k/uL PT (10.0-12.5) sec APTT 65.5 H (22.0-30.0) sec ABG pO2 (83-108) mmHg ABG Total CO2 (19-24) mmol/L ABG O2 Saturation (94-97) % Sodium 147 H (137-145) mmol/L Chloride 118 H (98-107) mmol/L BUN 37 H (7-17) mg/dL Glucose 223 H (74-99) mg/dL POC Glucose (mg/dL) 280 H (70-110) mg/dL Calcium 8.0 L (8.4-10.2) mg/dL Phosphorus 2.2 L (2.5-4.5) mg/dL Magnesium 2.7 H (1.6-2.3) mg/dL Iron (50-170) UG/DL TIBC (228-460) UG/DL % Saturation (12.00-45.00) Transferrin (204.0-354.0) mg/dL 07/14/23 07/14/23 07/14/23 Range/Units 04:15 05:24 05:37 WBC 16.9 H (3.8-10.6) k/uL RBC 2.75 L (3.80-5.40) m/uL Hgb 7.4 L (11.4-16.0) gm/dL Hct 24.8 L (34.0-46.0) % MCHC 29.8 L (31.0-37.0) g/dL Plt Count 475 H (150-450) k/uL Neutrophils # 15.7 H (1.3-7.7) k/uL Lymphocytes # 0.4 L (1.0-4.8) k/uL PT (10.0-12.5) sec APTT (22.0-30.0) sec ABG pO2 113 H (83-108) mmHg ABG Total CO2 26 H (19-24) mmol/L ABG O2 Saturation 98.3 H (94-97) % Sodium (137-145) mmol/L Chloride (98-107) mmol/L BUN (7-17) mg/dL Glucose (74-99) mg/dL POC Glucose (mg/dL) 236 H (70-110) mg/dL Calcium (8.4-10.2) mg/dL Phosphorus (2.5-4.5) mg/dL Magnesium (1.6-2.3) mg/dL Iron (50-170) UG/DL TIBC (228-460) UG/DL % Saturation (12.00-45.00) Transferrin (204.0-354.0) mg/dL 07/14/23 Range/Units 10:55 WBC (3.8-10.6) k/uL RBC (3.80-5.40) m/uL Hgb (11.4-16.0) gm/dL Hct (34.0-46.0) % MCHC (31.0-37.0) g/dL Plt Count (150-450) k/uL Neutrophils # (1.3-7.7) k/uL Lymphocytes # (1.0-4.8) k/uL PT (10.0-12.5) sec APTT (22.0-30.0) sec ABG pO2 (83-108) mmHg ABG Total CO2 26 H (19-24) mmol/L ABG O2 Saturation 97.6 H (94-97) % Sodium (137-145) mmol/L Chloride (98-107) mmol/L BUN (7-17) mg/dL Glucose (74-99) mg/dL POC Glucose (mg/dL) (70-110) mg/dL Calcium (8.4-10.2) mg/dL Phosphorus (2.5-4.5) mg/dL Magnesium (1.6-2.3) mg/dL Iron (50-170) UG/DL TIBC (228-460) UG/DL % Saturation (12.00-45.00) Transferrin (204.0-354.0) mg/dL Microbiology - Last 24 Hours (Table) 07/12/23 00:39 Gram Stain - Final Sputum Sputum Culture - Final Casandra albicans 07/11/23 18:08 Gram Stain - Final Abdomen Wound Culture - Final Casandra albicans 07/12/23 16:00 Blood Culture - Preliminary Blood 07/11/23 00:22 Blood Culture Gram Stain - Preliminary Blood Blood Culture - Preliminary Group D Enterococcus Assessment and Plan Assessment: Postop day #13, status post repair of her recurrent paraesophageal hernia. Postop day 3, status post exploratory laparotomy, repair of gastric perforation, drainage of abdominal abscess, and lysis of adhesions. Status post left-sided chest tube placement, 07/11/2023. COPD, acutely active. Mental status changes, secondary to metabolic encephalopathy. Acute kidney injury. Benign essential hypertension. Paroxysmal atrial fibrillation, with rapid ventricular response. Generalized anxiety disorder. GERD with esophagitis. Restless leg syndrome. Chronic back pain. Previous tobacco use. Plan: Plan dated 07/11/2023. The patient is acutely. She remains in the intensive care unit. The patient's on 8 L of oxygen, high flow. She does have a left-sided pleural effusion, and may have a left-sided pneumothorax. I did speak to the surgeon, was planning on doing exploratory laparotomy, evaluated the fluid collection, posterior to the stomach. The patient will likely come back to the intensive care unit, on the mechanical ventilator. Additional recommendations and suggestions are forthcoming. Labs, x-rays, medications are reviewed. X-rays are negative. She remains on Zosyn. Follow make recommendations along the way. Prognosis is guarded. Plan dated 07/12/2023. The patient went to the operating room yesterday, for a fluid collection behind the stomach. The patient was discovered to have a perforated stomach, and abscess, that was drained, and lysis of adhesions. The patient came back to the ICU on the ventilator. She remains on the ventilator at this time. She continues on propofol, and Cardizem 5 mg an hour. She has a left chest tube was placed by cardiothoracic surgery for left pleural effusion and possible left- sided pneumothorax. The patient's on Zosyn and daptomycin, for vancomycin- resistant enterococci, and possible streptococci. Additional recommendations and suggestions are forthcoming. Prognosis is guarded. We will continue to follow the patient, make recommendations along the way. Plan dated 07/13/2023. The patient is critically ill, in the intensive care unit, on the mechanical breathing machine. She seen today in room 259. We will attempt a daily interruption of sedation, although I'm positive, the patient is not yet ready for weaning and extubation. She continues on propofol, Cardizem, and norepinephrine. She is now getting TPN at 30 mL an hour. Blood gases are reasonable. The FiO2 was reduced from 50%, down to 40%. Labs, x-rays, and medications are reviewed. We will continue to follow the patient, and make recommendations along the way. The patient's overall prognosis remains very guarded. Plan dated 07/14/2023. The patient will have a daily interruption of sedation, and a spontaneous breathing trial today, on pressure support of 5, and CPAP of 5. Labs, x-rays, medications are reviewed. The patient may be ready for extubation. I will ask for a full set a weaning parameters, and a cuff leak test, after 20-30 minutes on pressure support. The patient continues on TPN at 60 mL an hour. The patient continues on IV heparin. The patient also continues on Eraxis, daptomycin, and Zosyn. We will continue to follow the patient, and make recommendations along the way. Prognosis is guarded. Time with Patient: Greater than 30
[2023-07-14 11:47] VITALS: BMI 28.3
--- NOTE | 2023-07-14 12:46 | P.PN ---
Subjective Patient is seen for follow-up for acute kidney injury and volume overload. Patient was extubated today. She remains on TPN. Sodium was elevated at 147. Serum creatinine is down to 0.8 mg/dL. Urine output at 60-80 mL an hour. Objective - Vital Signs Vital signs: Vital Signs Temp 98 F 07/14/23 08:00 Pulse 87 07/14/23 12:00 Resp 16 07/14/23 12:00 BP 129/67 07/14/23 12:00 Pulse Ox 98 07/14/23 12:00 FiO2 40 07/14/23 10:20 Intake & Output 07/13/23 07/14/23 07/14/23 18:59 06:59 18:59 Intake Total 2821.226 9667.845 808.274 Output Total 820 855 440 Balance 290.206 589.845 368.274 Weight 79.7 kg 79.7 kg Intake: IV 520 936 475 A line 36 15 Anidulafungin 200 mg In 200 130 Sodium Chloride 0.9% 200 ml @ 84 mls/hr IVPB ONCE ONE Rx#:[id number] DAPTOmycin 500 mg In 50 Sodium Chloride 0.9% 50 ml @ 100 mls/hr IVPB Q24H [facility] Rx#:[id number] Mvi, Adult No.4 with Vit 660 180 K 10 ml Trace (Conc-1Ml/ Dose) 1 ml Sodium Acetate 30 meq Potassium Acetate 20 meq Calcium Gluconate 1 gm In Amino Acid 5%- D15w 1,000 ml @ 60 mls/hr IV .BY DURATION [facility] Rx#: [id number] Piperacillin-Tazobactam 3 200 100 .375 gm In Sodium Chloride 0.9% 100 ml @ 25 mls/hr IVPB Q8HR [facility] Rx# :[id number] Sodium Acetate 30 meq 60 Potassium Acetate 20 meq Calcium Gluconate 1 gm In Amino Acid 5%-D15w 1,000 ml @ 60 mls/hr IV .BY DURATION [facility] Rx#: [id number] kvo 120 130 50 Intake, IV Titration 590.206 508.845 333.274 Amount Diltiazem 125 mg In 92.000 75.75 Sodium Chloride 0.9% 100 ml @ 7.5 MG/HR 7.5 mls/hr IV .[id number] [facility] Rx#: [id number] Heparin Sod,Pork in 0.45% 69.85 172.992 NaCl 25,000 unit In 0.45 % NaCl 1 250ml.bag @ 12 UNITS/KG/HR 9.792 mls/hr IV .Q24H [facility] Rx#: [id number] Norepinephrine 4 mg In 242.577 175.693 10.003 Sodium Chloride 0.9% 250 ml @ 0.03 MCG/KG/MIN 7. 727 mls/hr IV .Q24H [facility] Rx#:[id number] propofoL 1,000 mg In 255.629 263.302 74.529 Empty Bag 1 bag @ 15 MCG/ KG/MIN 6.084 mls/hr IV . [id number] [facility] Rx#:[id number] Output: Chest Tube Drainage 80 40 50 Chest Tube Left 80 40 50 Drainage 50 45 40 Left Abdomen 20 25 15 Right Abdomen 30 20 25 Urine 690 770 350 Other: Voiding Method Indwelling Catheter Indwelling Catheter ABP, PAP, CO, CI - Last Documented Arterial Blood Pressure 146/42 - Exam Patient is awake, comfortable, restless No acute distress Examination of the heart S1 and S2 Examination of the lungs bilateral breath sounds are heard Abdomen is dressed Examination of lower extremities shows edema 1+ bilaterally. - Labs CBC & Chem 7: 07/14/23 04:15 07/14/23 04:15 Labs: Abnormal Lab Results - Last 24 Hours (Table) 07/13/23 07/13/23 07/13/23 Range/Units 04:15 14:00 17:20 WBC (3.8-10.6) k/uL RBC (3.80-5.40) m/uL Hgb (11.4-16.0) gm/dL Hct (34.0-46.0) % MCHC (31.0-37.0) g/dL Plt Count (150-450) k/uL Neutrophils # (1.3-7.7) k/uL Lymphocytes # (1.0-4.8) k/uL PT 9.4 L (10.0-12.5) sec APTT (22.0-30.0) sec ABG pO2 (83-108) mmHg ABG Total CO2 (19-24) mmol/L ABG O2 Saturation (94-97) % Sodium (137-145) mmol/L Chloride (98-107) mmol/L BUN (7-17) mg/dL Glucose (74-99) mg/dL POC Glucose (mg/dL) 255 H (70-110) mg/dL Calcium (8.4-10.2) mg/dL Phosphorus (2.5-4.5) mg/dL Magnesium (1.6-2.3) mg/dL Iron 9 L (50-170) UG/DL TIBC 183 L (228-460) UG/DL % Saturation 4.92 L (12.00-45.00) Transferrin 131.0 L (204.0-354.0) mg/dL 07/13/23 07/13/23 07/14/23 Range/Units 20:21 21:35 00:01 WBC (3.8-10.6) k/uL RBC (3.80-5.40) m/uL Hgb (11.4-16.0) gm/dL Hct (34.0-46.0) % MCHC (31.0-37.0) g/dL Plt Count (150-450) k/uL Neutrophils # (1.3-7.7) k/uL Lymphocytes # (1.0-4.8) k/uL PT 9.6 L (10.0-12.5) sec APTT 32.5 H (22.0-30.0) sec ABG pO2 (83-108) mmHg ABG Total CO2 (19-24) mmol/L ABG O2 Saturation (94-97) % Sodium (137-145) mmol/L Chloride (98-107) mmol/L BUN (7-17) mg/dL Glucose (74-99) mg/dL POC Glucose (mg/dL) 274 H 280 H (70-110) mg/dL Calcium (8.4-10.2) mg/dL Phosphorus (2.5-4.5) mg/dL Magnesium (1.6-2.3) mg/dL Iron (50-170) UG/DL TIBC (228-460) UG/DL % Saturation (12.00-45.00) Transferrin (204.0-354.0) mg/dL 07/14/23 07/14/23 07/14/23 Range/Units 02:10 04:15 04:15 WBC 16.9 H (3.8-10.6) k/uL RBC 2.75 L (3.80-5.40) m/uL Hgb 7.4 L (11.4-16.0) gm/dL Hct 24.8 L (34.0-46.0) % MCHC 29.8 L (31.0-37.0) g/dL Plt Count 475 H (150-450) k/uL Neutrophils # 15.7 H (1.3-7.7) k/uL Lymphocytes # 0.4 L (1.0-4.8) k/uL PT (10.0-12.5) sec APTT 65.5 H (22.0-30.0) sec ABG pO2 (83-108) mmHg ABG Total CO2 (19-24) mmol/L ABG O2 Saturation (94-97) % Sodium 147 H (137-145) mmol/L Chloride 118 H (98-107) mmol/L BUN 37 H (7-17) mg/dL Glucose 223 H (74-99) mg/dL POC Glucose (mg/dL) (70-110) mg/dL Calcium 8.0 L (8.4-10.2) mg/dL Phosphorus 2.2 L (2.5-4.5) mg/dL Magnesium 2.7 H (1.6-2.3) mg/dL Iron (50-170) UG/DL TIBC (228-460) UG/DL % Saturation (12.00-45.00) Transferrin (204.0-354.0) mg/dL 07/14/23 07/14/23 07/14/23 Range/Units 05:24 05:37 10:55 WBC (3.8-10.6) k/uL RBC (3.80-5.40) m/uL Hgb (11.4-16.0) gm/dL Hct (34.0-46.0) % MCHC (31.0-37.0) g/dL Plt Count (150-450) k/uL Neutrophils # (1.3-7.7) k/uL Lymphocytes # (1.0-4.8) k/uL PT (10.0-12.5) sec APTT (22.0-30.0) sec ABG pO2 113 H (83-108) mmHg ABG Total CO2 26 H 26 H (19-24) mmol/L ABG O2 Saturation 98.3 H 97.6 H (94-97) % Sodium (137-145) mmol/L Chloride (98-107) mmol/L BUN (7-17) mg/dL Glucose (74-99) mg/dL POC Glucose (mg/dL) 236 H (70-110) mg/dL Calcium (8.4-10.2) mg/dL Phosphorus (2.5-4.5) mg/dL Magnesium (1.6-2.3) mg/dL Iron (50-170) UG/DL TIBC (228-460) UG/DL % Saturation (12.00-45.00) Transferrin (204.0-354.0) mg/dL Microbiology - Last 24 Hours (Table) 07/11/23 18:08 Anaerobic Culture - Preliminary Abdomen 07/12/23 00:39 Gram Stain - Final Sputum Sputum Culture - Final Casandra albicans 07/11/23 18:08 Gram Stain - Final Abdomen Wound Culture - Final Casandra albicans 07/12/23 16:00 Blood Culture - Preliminary Blood 07/11/23 00:22 Blood Culture Gram Stain - Preliminary Blood Blood Culture - Preliminary Group D Enterococcus Assessment and Plan Assessment: 1. Acute kidney injury, ATN, currently nonoliguric. Patient is maintained on TPN which we can continue. UA on 07/08/2023 showed 1+ protein and trace blood. This appears to be a Coelho specimen. No obstruction noted on CT of the abdomen on 07/11/2023. 2. 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 3. Volume overload with significant positive balance since admission. Currently stable on the vent with good oxygenation. 4. Left pleural effusion status post chest tube placement 5. A. fib with RVR maintained on Cardizem drip 6. Septic shock due to gastric perforation and abdominal abscess. Blood cultur es were growing group D enterococcus and abdominal fluid is growing Casandra albicans. 7. Anemia rule with severe iron deficiency Plan: Continue with TPN Adjust TPN for high sodium Add IV iron Continue antibiotics and repeat labs in a.m.
--- NOTE | 2023-07-14 12:47 | P.PN ---
Subjective Progress Note Date: 07/14/23 CHIEF COMPLAINT: Recurrent paraesophageal hiatal hernia HISTORY OF PRESENT ILLNESS: Patient required to be taken back to the OR due to fluid fluid collection posterior's to the stomach noted on CT. Postop day #3 status post exploratory laparotomy, repair of gastric perforation 2, drainage of abdominal abscess and lysis of adhesions. Patient had chest tube placed intraoperatively by cardiothoracic surgeon for left-sided pleural effusion and possible left-sided pneumothorax. She is postop day #13 status post laparoscopic repair of paraesophageal hiatal hernia with mesh, lysis of adhesions and partial gastrectomy. She is off the Levophed. They're working on weaning her from the vent today. JENI drain on the right is purulent in color. JENI drain on the left serosanguineous. Patient currently off the sedation and is restless. Patient has been started on the IV heparin for A. fib Afebrile. WBC 18.4 down to 16.9 Hgb down from 8.5 to 7.4 platelets 475 sodium 147 potassium 3.7 creatinine 0.85 PHYSICAL EXAM: VITAL SIGNS: Reviewed. GENERAL: Intubated CHEST: Left-sided chest tube ABDOMEN: Soft. Nondistended. Midline incisional dressing clean dry and intact. JENI drain on the left serosanguineous and JENI drain on the right purulent ASSESSMENT: 1. Gastric perforation status post exploratory laparotomy, repair of gastric perforation 2, drainage of abdominal abscess and lysis of adhesions 2. Recurrent paraesophageal hiatal hernia, Adhesions, GERD status post laparoscopic repair of paraesophageal hiatal hernia with mesh, lysis of adhesions and partial gastrectomy on 07/01/2023 3. A. fib with RVR 4. Altered mental status secondary to Metabolic encephalopathy 5. Possible TIA 6. Iron deficiency anemia PLAN: -Continue ICU management -Continue pain management -Continue antibiotics -IV iron daily ordered 3 doses Physician Linker Up note has been reviewed by physician. Signing provider agrees with the documented findings, assessment, and plan of care. I have personally seen and examined the patient, reviewed the [employer] /PAs history, exam and MDM and agree with the assessment and plan as written. Based on total visit time, I have performed more than 50% of the visit. As above: Patient was extubated this morning. She is off of anticoagulation. White blood cell count improved. Nasogastric tube was placed after extubation and removal of the oral gastric. The right JENI drain which is anterior to the stomach is more purulent today. This is nonbilious. Continue antibiotics. Continue nothing by mouth with TPN. Objective - Vital Signs Vital signs: Vital Signs Temp 98 F 07/14/23 08:00 Pulse 52 L 07/14/23 10:00 Resp 20 07/14/23 10:00 BP 113/51 07/14/23 10:00 Pulse Ox 97 07/14/23 11:21 FiO2 40 07/14/23 10:20 Intake & Output 07/13/23 07/14/23 07/14/23 18:59 06:59 18:59 Intake Total 9619.026 1407.845 782.274 Output Total 820 855 250 Balance 290.206 589.845 532.274 Weight 79.7 kg Intake: IV 520 936 449 A line 36 9 Anidulafungin 200 mg In 200 130 Sodium Chloride 0.9% 200 ml @ 84 mls/hr IVPB ONCE ONE Rx#:[id number] DAPTOmycin 500 mg In 50 Sodium Chloride 0.9% 50 ml @ 100 mls/hr IVPB Q24H [facility]#:[id number] Mvi, Adult No.4 with Vit 660 180 K 10 ml Trace (Conc-1Ml/ Dose) 1 ml Sodium Acetate 30 meq Potassium Acetate 20 meq Calcium Gluconate 1 gm In Amino Acid 5%- D15w 1,000 ml @ 60 mls/hr IV .BY DURATION [facility] Rx#: [id number] Piperacillin-Tazobactam 3 200 100 .375 gm In Sodium Chloride 0.9% 100 ml @ 25 mls/hr IVPB Q8HR [facility] Rx# :[id number] Sodium Acetate 30 meq 60 Potassium Acetate 20 meq Calcium Gluconate 1 gm In Amino Acid 5%-D15w 1,000 ml @ 60 mls/hr IV .BY DURATION [facility] Rx#: [id number] kvo 120 130 30 Intake, IV Titration 590.206 508.845 333.274 Amount Diltiazem 125 mg In 92.000 75.75 Sodium Chloride 0.9% 100 ml @ 7.5 MG/HR 7.5 mls/hr IV .[id number] [facility] Rx#: [id number] Heparin Sod,Pork in 0.45% 69.85 172.992 NaCl 25,000 unit In 0.45 % NaCl 1 250ml.bag @ 12 UNITS/KG/HR 9.792 mls/hr IV .Q24H [facility] Rx#: [id number] Norepinephrine 4 mg In 242.577 175.693 10.003 Sodium Chloride 0.9% 250 ml @ 0.03 MCG/KG/MIN 7. 727 mls/hr IV .Q24H [facility] Rx#:[id number] propofoL 1,000 mg In 255.629 263.302 74.529 Empty Bag 1 bag @ 15 MCG/ KG/MIN 6.084 mls/hr IV . [id number] [facility] Rx#:[id number] Output: Chest Tube Drainage 80 40 20 Chest Tube Left 80 40 20 Drainage 50 45 Left Abdomen 20 25 Right Abdomen 30 20 Urine 690 770 230 Other: Voiding Method Indwelling Catheter Indwelling Catheter ABP, PAP, CO, CI - Last Documented Arterial Blood Pressure 128/41 - Labs CBC & Chem 7: 07/14/23 04:15 07/14/23 04:15 Labs: Abnormal Lab Results - Last 24 Hours (Table) 07/13/23 07/13/23 07/13/23 Range/Units 04:15 12:01 14:00 WBC (3.8-10.6) k/uL RBC (3.80-5.40) m/uL Hgb (11.4-16.0) gm/dL Hct (34.0-46.0) % MCHC (31.0-37.0) g/dL Plt Count (150-450) k/uL Neutrophils # (1.3-7.7) k/uL Lymphocytes # (1.0-4.8) k/uL PT 9.4 L (10.0-12.5) sec APTT (22.0-30.0) sec ABG pO2 (83-108) mmHg ABG Total CO2 (19-24) mmol/L ABG O2 Saturation (94-97) % Sodium (137-145) mmol/L Chloride (98-107) mmol/L BUN (7-17) mg/dL Glucose (74-99) mg/dL POC Glucose (mg/dL) 224 H (70-110) mg/dL Calcium (8.4-10.2) mg/dL Phosphorus (2.5-4.5) mg/dL Magnesium (1.6-2.3) mg/dL Iron 9 L (50-170) UG/DL TIBC 183 L (228-460) UG/DL % Saturation 4.92 L (12.00-45.00) Transferrin 131.0 L (204.0-354.0) mg/dL 07/13/23 07/13/23 07/13/23 Range/Units 17:20 20:21 21:35 WBC (3.8-10.6) k/uL RBC (3.80-5.40) m/uL Hgb (11.4-16.0) gm/dL Hct (34.0-46.0) % MCHC (31.0-37.0) g/dL Plt Count (150-450) k/uL Neutrophils # (1.3-7.7) k/uL Lymphocytes # (1.0-4.8) k/uL PT 9.6 L (10.0-12.5) sec APTT 32.5 H (22.0-30.0) sec ABG pO2 (83-108) mmHg ABG Total CO2 (19-24) mmol/L ABG O2 Saturation (94-97) % Sodium (137-145) mmol/L Chloride (98-107) mmol/L BUN (7-17) mg/dL Glucose (74-99) mg/dL POC Glucose (mg/dL) 255 H 274 H (70-110) mg/dL Calcium (8.4-10.2) mg/dL Phosphorus (2.5-4.5) mg/dL Magnesium (1.6-2.3) mg/dL Iron (50-170) UG/DL TIBC (228-460) UG/DL % Saturation (12.00-45.00) Transferrin (204.0-354.0) mg/dL 07/14/23 07/14/23 07/14/23 Range/Units 00:01 02:10 04:15 WBC (3.8-10.6) k/uL RBC (3.80-5.40) m/uL Hgb (11.4-16.0) gm/dL Hct (34.0-46.0) % MCHC (31.0-37.0) g/dL Plt Count (150-450) k/uL Neutrophils # (1.3-7.7) k/uL Lymphocytes # (1.0-4.8) k/uL PT (10.0-12.5) sec APTT 65.5 H (22.0-30.0) sec ABG pO2 (83-108) mmHg ABG Total CO2 (19-24) mmol/L ABG O2 Saturation (94-97) % Sodium 147 H (137-145) mmol/L Chloride 118 H (98-107) mmol/L BUN 37 H (7-17) mg/dL Glucose 223 H (74-99) mg/dL POC Glucose (mg/dL) 280 H (70-110) mg/dL Calcium 8.0 L (8.4-10.2) mg/dL Phosphorus 2.2 L (2.5-4.5) mg/dL Magnesium 2.7 H (1.6-2.3) mg/dL Iron (50-170) UG/DL TIBC (228-460) UG/DL % Saturation (12.00-45.00) Transferrin (204.0-354.0) mg/dL 07/14/23 07/14/23 07/14/23 Range/Units 04:15 05:24 05:37 WBC 16.9 H (3.8-10.6) k/uL RBC 2.75 L (3.80-5.40) m/uL Hgb 7.4 L (11.4-16.0) gm/dL Hct 24.8 L (34.0-46.0) % MCHC 29.8 L (31.0-37.0) g/dL Plt Count 475 H (150-450) k/uL Neutrophils # 15.7 H (1.3-7.7) k/uL Lymphocytes # 0.4 L (1.0-4.8) k/uL PT (10.0-12.5) sec APTT (22.0-30.0) sec ABG pO2 113 H (83-108) mmHg ABG Total CO2 26 H (19-24) mmol/L ABG O2 Saturation 98.3 H (94-97) % Sodium (137-145) mmol/L Chloride (98-107) mmol/L BUN (7-17) mg/dL Glucose (74-99) mg/dL POC Glucose (mg/dL) 236 H (70-110) mg/dL Calcium (8.4-10.2) mg/dL Phosphorus (2.5-4.5) mg/dL Magnesium (1.6-2.3) mg/dL Iron (50-170) UG/DL TIBC (228-460) UG/DL % Saturation (12.00-45.00) Transferrin (204.0-354.0) mg/dL 07/14/23 Range/Units 10:55 WBC (3.8-10.6) k/uL RBC (3.80-5.40) m/uL Hgb (11.4-16.0) gm/dL Hct (34.0-46.0) % MCHC (31.0-37.0) g/dL Plt Count (150-450) k/uL Neutrophils # (1.3-7.7) k/uL Lymphocytes # (1.0-4.8) k/uL PT (10.0-12.5) sec APTT (22.0-30.0) sec ABG pO2 (83-108) mmHg ABG Total CO2 26 H (19-24) mmol/L ABG O2 Saturation 97.6 H (94-97) % Sodium (137-145) mmol/L Chloride (98-107) mmol/L BUN (7-17) mg/dL Glucose (74-99) mg/dL POC Glucose (mg/dL) (70-110) mg/dL Calcium (8.4-10.2) mg/dL Phosphorus (2.5-4.5) mg/dL Magnesium (1.6-2.3) mg/dL Iron (50-170) UG/DL TIBC (228-460) UG/DL % Saturation (12.00-45.00) Transferrin (204.0-354.0) mg/dL Microbiology - Last 24 Hours (Table) 07/12/23 00:39 Gram Stain - Final Sputum Sputum Culture - Final Casandra albicans 07/11/23 18:08 Gram Stain - Final Abdomen Wound Culture - Final Casandra albicans 07/12/23 16:00 Blood Culture - Preliminary Blood 07/11/23 00:22 Blood Culture Gram Stain - Preliminary Blood Blood Culture - Preliminary Group D Enterococcus
[2023-07-14 12:50] LABS: Glucose,Whole Blood 171 mg/dL (70-110)
[2023-07-14] MEDS: SODIUM FERRIC GLUCONAT-SUCROSE 125 MG in SODIUM CHLORIDE 0.9% 100 ML IVPB SCH (13:11)
[2023-07-14] MEDS ORDERED: HALOPERIDOL LACTATE 5 MG/ML 1 ML VIAL IVP PRN (13:20)
[2023-07-14] MEDS: DILTIAZEM 125 MG in SODIUM CHLORIDE 0.9% 100 ML IV SCH ×2 (13:26→21:44)
[2023-07-14] MEDS: HALOPERIDOL LACTATE 5 MG/ML 1 ML VIAL IVP PRN ×2 (13:30→18:04)
--- NOTE | 2023-07-14 14:49 | P.PN ---
Subjective Progress Note Date: 07/14/23 Principal diagnosis: Reason for follow-up is Intra-abdominal abscess and VRE bacteremia Patient is a 82-year-old female with a past medical history living with CVA TIA reflux hyperlipidemia hypertension patient was electively admitted to the hospital on 07/01/2023 in this patient with recurrent paraesophageal hiatal hernia patient is status post laparoscopic repair of the paraesophageal hiatal hernia with absorbable mesh lysis of adhesion and partial gastrectomy, patient did have a postoperative A. fib with RVR problem with her mentation requiring CT of the abdominal pelvis, did have some lung parenchymal groundglass opacity from previous infectious disease consultation, Patient was taken to the OR evening of 07/11/2023, patient is status post expiratory laparotomy repair of gastric perforation x 2 and drainage of abdominal abscess along with lysis of adhesion. On today's evaluation that is 07/14/2023, the patient remains to be afebrile, the patient has been extubated and is currently breathing comfortably on 4 L nasal cannula oxygen patient is slightly lethargic not have adequate historian patient is hemodynamic stable not requiring pressors and no other changes reported by the nursing staff. Patient white count is down to 16.9, creatinine 0.85, abdominal culture with Casandra albicans blood cultures with VRE repeat blood culture 07/12/2023 so far pending Objective - Vital Signs Vital signs: Vital Signs Temp 98 F 07/14/23 08:00 Pulse 85 07/14/23 14:00 Resp 14 07/14/23 14:00 BP 146/66 07/14/23 14:00 Pulse Ox 97 07/14/23 14:00 FiO2 40 07/14/23 10:20 Intake & Output 07/13/23 07/14/23 07/14/23 18:59 06:59 18:59 Intake Total 9228.536 2403.845 751.274 Output Total 820 855 560 Balance 290.206 589.845 191.274 Weight 79.7 kg 79.7 kg Intake: IV 520 936 318 A line 36 18 Anidulafungin 200 mg In 200 130 Sodium Chloride 0.9% 200 ml @ 84 mls/hr IVPB ONCE ONE Rx#:[id number] DAPTOmycin 500 mg In 50 Sodium Chloride 0.9% 50 ml @ 100 mls/hr IVPB Q24H [facility] Rx#:[id number] Mvi, Adult No.4 with Vit 660 K 10 ml Trace (Conc-1Ml/ Dose) 1 ml Sodium Acetate 30 meq Potassium Acetate 20 meq Calcium Gluconate 1 gm In Amino Acid 5%- D15w 1,000 ml @ 60 mls/hr IV .BY DURATION [facility] Rx#: [id number] Piperacillin-Tazobactam 3 200 100 .375 gm In Sodium Chloride 0.9% 100 ml @ 25 mls/hr IVPB Q8HR [facility] Rx# :[id number] Sodium Acetate 30 meq 60 Potassium Acetate 20 meq Calcium Gluconate 1 gm In Amino Acid 5%-D15w 1,000 ml @ 60 mls/hr IV .BY DURATION [facility] Rx#: [id number] kvo 120 130 70 Intake, IV Titration 590.206 508.845 333.274 Amount Diltiazem 125 mg In 92.000 75.75 Sodium Chloride 0.9% 100 ml @ 7.5 MG/HR 7.5 mls/hr IV .[id number] [facility] Rx#: [id number] Heparin Sod,Pork in 0.45% 69.85 172.992 NaCl 25,000 unit In 0.45 % NaCl 1 250ml.bag @ 12 UNITS/KG/HR 9.792 mls/hr IV .Q24H [facility] Rx#: [id number] Norepinephrine 4 mg In 242.577 175.693 10.003 Sodium Chloride 0.9% 250 ml @ 0.03 MCG/KG/MIN 7. 727 mls/hr IV .Q24H [facility] Rx#:[id number] propofoL 1,000 mg In 255.629 263.302 74.529 Empty Bag 1 bag @ 15 MCG/ KG/MIN 6.084 mls/hr IV . [id number] [facility] Rx#:[id number] Lipid 100 Sodium Ferric Gluconat- 100 Sucrose 125 mg In Sodium Chloride 0.9% 100 ml @ 100 mls/hr IVPB DAILY [facility] Rx#:[id number] Output: Chest Tube Drainage 80 40 50 Chest Tube Left 80 40 50 Drainage 50 45 40 Left Abdomen 20 25 15 Right Abdomen 30 20 25 Urine 690 770 470 Other: Voiding Method Indwelling Catheter Indwelling Catheter ABP, PAP, CO, CI - Last Documented Arterial Blood Pressure 147/39 - Exam GENERAL DESCRIPTION:Elderly female lying in bed in no distress RESPIRATORY SYSTEM: Unlabored breathing , diminished breath sounds HEART: S1 S2 regular rate and rhythm , ABDOMEN: Soft , mild distension EXTREMITIES: No edema feet - Labs CBC & Chem 7: 07/14/23 04:15 07/14/23 04:15 Labs: Abnormal Lab Results - Last 24 Hours (Table) 07/13/23 07/13/23 07/13/23 Range/Units 04:15 17:20 20:21 WBC (3.8-10.6) k/uL RBC (3.80-5.40) m/uL Hgb (11.4-16.0) gm/dL Hct (34.0-46.0) % MCHC (31.0-37.0) g/dL Plt Count (150-450) k/uL Neutrophils # (1.3-7.7) k/uL Lymphocytes # (1.0-4.8) k/uL PT 9.6 L (10.0-12.5) sec APTT 32.5 H (22.0-30.0) sec ABG pO2 (83-108) mmHg ABG Total CO2 (19-24) mmol/L ABG O2 Saturation (94-97) % Sodium (137-145) mmol/L Chloride (98-107) mmol/L BUN (7-17) mg/dL Glucose (74-99) mg/dL POC Glucose (mg/dL) 255 H (70-110) mg/dL Calcium (8.4-10.2) mg/dL Phosphorus (2.5-4.5) mg/dL Magnesium (1.6-2.3) mg/dL Iron 9 L (50-170) UG/DL TIBC 183 L (228-460) UG/DL % Saturation 4.92 L (12.00-45.00) Transferrin 131.0 L (204.0-354.0) mg/dL 07/13/23 07/14/23 07/14/23 Range/Units 21:35 00:01 02:10 WBC (3.8-10.6) k/uL RBC (3.80-5.40) m/uL Hgb (11.4-16.0) gm/dL Hct (34.0-46.0) % MCHC (31.0-37.0) g/dL Plt Count (150-450) k/uL Neutrophils # (1.3-7.7) k/uL Lymphocytes # (1.0-4.8) k/uL PT (10.0-12.5) sec APTT 65.5 H (22.0-30.0) sec ABG pO2 (83-108) mmHg ABG Total CO2 (19-24) mmol/L ABG O2 Saturation (94-97) % Sodium (137-145) mmol/L Chloride (98-107) mmol/L BUN (7-17) mg/dL Glucose (74-99) mg/dL POC Glucose (mg/dL) 274 H 280 H (70-110) mg/dL Calcium (8.4-10.2) mg/dL Phosphorus (2.5-4.5) mg/dL Magnesium (1.6-2.3) mg/dL Iron (50-170) UG/DL TIBC (228-460) UG/DL % Saturation (12.00-45.00) Transferrin (204.0-354.0) mg/dL 07/14/23 07/14/23 07/14/23 Range/Units 04:15 04:15 05:24 WBC 16.9 H (3.8-10.6) k/uL RBC 2.75 L (3.80-5.40) m/uL Hgb 7.4 L (11.4-16.0) gm/dL Hct 24.8 L (34.0-46.0) % MCHC 29.8 L (31.0-37.0) g/dL Plt Count 475 H (150-450) k/uL Neutrophils # 15.7 H (1.3-7.7) k/uL Lymphocytes # 0.4 L (1.0-4.8) k/uL PT (10.0-12.5) sec APTT (22.0-30.0) sec ABG pO2 113 H (83-108) mmHg ABG Total CO2 26 H (19-24) mmol/L ABG O2 Saturation 98.3 H (94-97) % Sodium 147 H (137-145) mmol/L Chloride 118 H (98-107) mmol/L BUN 37 H (7-17) mg/dL Glucose 223 H (74-99) mg/dL POC Glucose (mg/dL) (70-110) mg/dL Calcium 8.0 L (8.4-10.2) mg/dL Phosphorus 2.2 L (2.5-4.5) mg/dL Magnesium 2.7 H (1.6-2.3) mg/dL Iron (50-170) UG/DL TIBC (228-460) UG/DL % Saturation (12.00-45.00) Transferrin (204.0-354.0) mg/dL 07/14/23 07/14/23 07/14/23 Range/Units 05:37 10:55 12:48 WBC (3.8-10.6) k/uL RBC (3.80-5.40) m/uL Hgb (11.4-16.0) gm/dL Hct (34.0-46.0) % MCHC (31.0-37.0) g/dL Plt Count (150-450) k/uL Neutrophils # (1.3-7.7) k/uL Lymphocytes # (1.0-4.8) k/uL PT (10.0-12.5) sec APTT (22.0-30.0) sec ABG pO2 (83-108) mmHg ABG Total CO2 26 H (19-24) mmol/L ABG O2 Saturation 97.6 H (94-97) % Sodium (137-145) mmol/L Chloride (98-107) mmol/L BUN (7-17) mg/dL Glucose (74-99) mg/dL POC Glucose (mg/dL) 236 H 171 H (70-110) mg/dL Calcium (8.4-10.2) mg/dL Phosphorus (2.5-4.5) mg/dL Magnesium (1.6-2.3) mg/dL Iron (50-170) UG/DL TIBC (228-460) UG/DL % Saturation (12.00-45.00) Transferrin (204.0-354.0) mg/dL Microbiology - Last 24 Hours (Table) 07/11/23 18:08 Anaerobic Culture - Preliminary Abdomen 07/12/23 00:39 Gram Stain - Final Sputum Sputum Culture - Final Casandra albicans 07/11/23 18:08 Gram Stain - Final Abdomen Wound Culture - Final Casandra albicans 07/12/23 16:00 Blood Culture - Preliminary Blood Assessment and Plan (1) Abnormal CT of the chest Current Visit: Yes Status: Acute Code(s): R93.89 - ABNORMAL FINDINGS ON DX IMAGING OF OTH BODY STRUCTURES SNOMED Code(s): 96166389291385486 (2) Leukocytosis Current Visit: Yes Status: Acute Code(s): D72.829 - ELEVATED WHITE BLOOD CELL COUNT, UNSPECIFIED SNOMED Code(s): 485408277 (3) Pneumonia Current Visit: Yes Status: Acute Code(s): J18.9 - PNEUMONIA, UNSPECIFIED ORGANISM SNOMED Code(s): 029797015 Plan: 1-Patient is 82-year-old female electively admitted to hospital status post paraesophageal hernia repair with abdominal mesh now with worsening of her clinical condition and concerning for fluid collection posterior to the stomach concerning for possible gastric perforation and intra-abdominal abscess 2-Patient is s/p laparotomy with surgical repair of gastric perforation x 2 and drainage of the intra-abdominal abscess with cultures currently pending 3VRE bacteremia source likely intra-abdominal abscess , Abdominal cultures currently growing Casandra albicans. 4the patient is afebrile the patient white count is trending down the patient has been extubated, we will keep the patient on Zosyn daptomycin and Eraxis and monitor clinical course closely Dictation was produced using [employer] dictation software. please excuse any grammatical, word or spelling errors. Time with Patient: Less than 30
--- NOTE | 2023-07-14 15:28 | XR ---
EXAMINATION TYPE: XR chest 1V portable DATE OF EXAM: 07/14/2023 Comparison: 07/14/2023 Clinical History: 82-year-old female NGT placement Findings: NG tube satisfactory. Left-sided chest tube in place. No appreciable pneumothorax. Unresponsive moder ate left pleural effusion. Bilateral diffuse interstitial density similar to slightly increased. Inte rval extubation. Impression: 1. Interval extubation. Correlate for mild pulmonary vascular congestion, interstitium slightly worse diane from prior. 2. Similar small to moderate left pleural effusion with adjacent atelectasis and/or consolidation.
[2023-07-14 16:11] LABS: % Iron Saturation 6.59 (12.00-45.00)
[2023-07-14 17:36] LABS: Glucose,Whole Blood 169 mg/dL (70-110)
[2023-07-14] MEDS: METOPROLOL TARTRATE 5 MG/5 ML VIAL IVP PRN (21:10)
[2023-07-14 23:56] LABS: Glucose,Whole Blood 189 mg/dL (70-110)
[2023-07-15] MEDS: HYDROmorphone 1 MG/ML 1 ML SYRINGE IVP PRN ×4 (03:19→19:03)
[2023-07-15 06:06] LABS: HCT 24.9 % (34.0-46.0); HGB 7.8 gm/dL (11.4-16.0); Hypochromasia Marked; MCH 27.5 pg (25.0-35.0); MCHC 31.2 g/dL (31.0-37.0); MCV 88.2 fL (80.0-100.0); Mean Platelet Volume 8.4; Platelet Count 480 k/uL (150-450); RBC 2.82 m/uL (3.80-5.40); RDW 15.3 % (11.5-15.5); WBC 22.9 k/uL (3.8-10.6)
[2023-07-15 06:09] LABS: Glucose,Whole Blood 184 mg/dL (70-110)
[2023-07-15] MEDS: INSULIN ASPART (NovoLOG) 100 UNIT/ML VIAL SQ SCH ×3 (06:10→18:01)
[2023-07-15 06:26] LABS: African American GFR (CKD) 83 (>60 ml/min/1.73 sqM); Anion Gap 4 mmol/L; Blood Urea Nitrogen 37 mg/dL (7-17); Calcium 8.7 mg/dL (8.4-10.2); Carbon Dioxide 24 mmol/L (22-30); Chloride 119 mmol/L (98-107); Glucose 165 mg/dL (74-99); Magnesium 2.7 mg/dL (1.6-2.3); Non-African American GFR(CKD) 72 (>60 ml/min/1.73 sqM); Phosphorus 2.4 mg/dL (2.5-4.5); Sodium 147 mmol/L (137-145)
[2023-07-15] MEDS: HEPARIN SOD,PORK IN 0.45% NACL 25,000 UNIT in 0.45% NACL 1 250ML.BAG IV SCH (06:34)
--- NOTE | 2023-07-15 07:47 | PN ---
PROGRESS NOTE SUBJECTIVE: This lady has been extubated. She had perforated stomach which has been operated upon by Dr. La. She is in sinus rhythm. She has not been in atrial fib since yesterday. Heparin has been resumed. Vitals are stable, hemodynamically stable. The patient has been just extubated. Oral medications have not been started. OBJECTIVE: VITALS: Stable. HEART: S1-S2 heard normally, short systolic murmur. Rhythm is regular. LUNGS: Reveal bilateral fair air entry. ABDOMEN: Not examined. EXTREMITIES: Lower extremities reveal diminished pulses. NEUROLOGIC: Central nervous system is normal. PLAN: To continue current medications including IV heparin and she can take oral medications. I will start her on a small dose of beta bhanu. MMODL / IJN: [id number] /
[2023-07-15] MEDS: BUDESONIDE 1 MG/2 ML NEBU INHALATION SCH ×2 (08:16→20:04)
[2023-07-15] MEDS: IPRATROPIUM-ALBUTEROL 3 ML NEB INHALATION SCH ×4 (08:16→20:04)
[2023-07-15] MEDS: methylPREDNISolone SOD SUCCI 40 MG/ML 1 ML VIAL IV SCH ×2 (08:21→17:49)
[2023-07-15] MEDS: PANTOPRAZOLE 40 MG/10 ML VIAL IVP SCH ×2 (08:24→23:41)
[2023-07-15] MEDS: PIPERACILLIN-TAZOBACTAM 3.375 GM in SODIUM CHLORIDE 0.9% 100 ML IVPB SCH ×2 (08:27→17:52)
[2023-07-15] MEDS: ANIDULAFUNGIN 100 MG in SODIUM CHLORIDE 0.9% 100 ML IVPB SCH (08:27)
[2023-07-15 08:40] LABS: ABG HCO3 26 mmol/L (21-25); ABG Oxygen Saturation 94.9 % (94-97); ABG PCO2 41 mmHg (35-45); ABG PH 7.41 (7.35-7.45); ABG PO2 71 mmHg (83-108); ABG TCO2 27 mmol/L (19-24)
[2023-07-15 08:43] LABS: Allen Test Performed? no
[2023-07-15] MEDS ORDERED: FUROSEMIDE 10 MG/ML 10 ML VIAL IV STA (09:32)
[2023-07-15] MEDS ORDERED: SODIUM PHOSPHATE 15 MMOL in DEXTROSE 5% IN WATER 250 ML IVPB ONE ×2 (10:00)
[2023-07-15] MEDS: DILTIAZEM 125 MG in SODIUM CHLORIDE 0.9% 100 ML IV SCH ×2 (10:27→13:32)
--- NOTE | 2023-07-15 10:31 | P.PN ---
Subjective Progress Note Date: 07/15/23 Principal diagnosis: Left pleural effusion, status post placement of left-sided pleural chest tube by Dr. Perkins 07/11/2023. The patient was seen and examined in follow-up this morning 07/15/2023 at her bedside in the intensive care unit. The patient was successfully extubated yesterday at 11:15 AM, she is currently on 3 L nasal cannula with oxygen saturations 93% and is achieving around 250-500 mL on her incentive spirometry with much encouragement. Bedside telemetry is showing normal sinus rhythm heart rate 80 BPM. Left pleural chest tube remains in place to low continuous wall suction -20 cm H2O. No air leak is present. Draining thin serosanguineous drainage with 30 mL output in the last 8 hours and 200 mL output in the last 24 hours. Chest x-ray results reviewed. Objective - Vital Signs Vital signs: Vital Signs Temp 99.0 F 07/15/23 04:00 Pulse 78 07/15/23 08:27 Resp 16 07/15/23 07:30 BP 147/68 07/15/23 07:30 Pulse Ox 94 L 07/15/23 07:30 FiO2 40 07/14/23 10:20 Intake & Output 07/14/23 07/15/23 07/15/23 18:59 06:59 18:59 Intake Total 314.759 0226.496 73 Output Total 930 1765 135 Balance -26.726 -609.504 -62 Weight 79.7 kg 80.5 kg Intake: IV 470 896 73 A line 30 36 3 Anidulafungin 200 mg In 130 Sodium Chloride 0.9% 200 ml @ 84 mls/hr IVPB ONCE ONE Rx#:[id number] DAPTOmycin 500 mg In 100 Sodium Chloride 0.9% 50 ml @ 100 mls/hr IVPB Q24H [facility] Rx#:[id number] Piperacillin-Tazobactam 3 100 .375 gm In Sodium Chloride 0.9% 100 ml @ 25 mls/hr IVPB Q8H [facility] Rx#: [id number] Piperacillin-Tazobactam 3 200 .375 gm In Sodium Chloride 0.9% 100 ml @ 25 mls/hr IVPB Q8HR [facility] Rx# :[id number] Potassium Chloride 10 meq 0 In Water For Injection 1 100ml.bag @ 100 mls/hr IVPB Q1H [facility] Rx#: [id number] Sodium Acetate 30 meq 540 60 Potassium Acetate 20 meq Calcium Gluconate 1 gm In Amino Acid 5%-D15w 1,000 ml @ 60 mls/hr IV .BY DURATION [facility] Rx#: [id number] kvo 110 120 10 Intake, IV Titration 333.274 259.496 Amount Diltiazem 125 mg In 75.75 25.916 Sodium Chloride 0.9% 100 ml @ 7.5 MG/HR 7.5 mls/hr IV .[id number] [facility] Rx#: [id number] Heparin Sod,Pork in 0.45% 172.992 233.58 NaCl 25,000 unit In 0.45 % NaCl 1 250ml.bag @ 12 UNITS/KG/HR 9.792 mls/hr IV .Q24H [facility] Rx#: [id number] Norepinephrine 4 mg In 10.003 Sodium Chloride 0.9% 250 ml @ 0.03 MCG/KG/MIN 7. 727 mls/hr IV .Q24H [facility] Rx#:[id number] propofoL 1,000 mg In 74.529 Empty Bag 1 bag @ 15 MCG/ KG/MIN 6.084 mls/hr IV . [id number] [facility] Rx#:[id number] Lipid 100 Sodium Ferric Gluconat- 100 Sucrose 125 mg In Sodium Chloride 0.9% 100 ml @ 100 mls/hr IVPB DAILY [facility] Rx#:[id number] Output: Chest Tube Drainage 140 30 Chest Tube Left 140 30 Gastric Drainage 900 75 Drainage 40 80 Left Abdomen 15 20 Right Abdomen 25 60 Urine 750 755 60 Other: Voiding Method Indwelling Catheter Indwelling Catheter ABP, PAP, CO, CI - Last Documented Arterial Blood Pressure 170/57 - Exam CONSTITUTIONAL: Appears restless, cooperative. RESPIRATORY: Lungs sounds with scattered rhonchi throughout. Respirations symmetrical, tachypneic. Currently on 3 LPM NC with oxygen saturation 93%. Able to achieve 250-500 on incentive spirometry. Strong cough. CARDIOVASCULAR: Regular rhythm and rate. S1 and S2 present, negative for S3, gallop or murmur. Bedside telemetry is showing normal sinus rhythm heart rate 80 bpm. Palpable peripheral pulses bilaterally. No edema present. No calf pain or tenderness noted. SCDs present. GASTROINTESTINAL: Abdomen soft, nontender, and nondistended. Active bowel sounds present 4 quadrants. Tolerating diet. Passing flatus, last documented bowel movement 07/14/23. GENITOURINARY: Patient continues to void. INTEGUMENTARY: Skin is warm and dry, no clubbing or cyanosis is present. Abdominal incision covered with dry intact dressing, bilateral JENI drains present. NEUROLOGIC: Cranial nerves II through XII intact. No focal deficits. MUSKULOSKELETAL: Able to move all extremities, strength equal bilaterally with generalized weakness. PSYCHIATRIC: Alert and oriented to person and place. INVASIVE LINES AND TUBES: Left pleural chest tube present and connected to wall suction, no air leaks present, 200 mL serosanguineous drainage in the last 24 hours - Allied health notes Allied health notes reviewed: nursing - Labs CBC & Chem 7: 07/15/23 05:45 07/15/23 05:45 Labs: Abnormal Lab Results - Last 24 Hours (Table) 07/14/23 07/14/23 07/14/23 Range/Units 04:15 10:55 12:48 WBC (3.8-10.6) k/uL RBC (3.80-5.40) m/uL Hgb (11.4-16.0) gm/dL Hct (34.0-46.0) % Plt Count (150-450) k/uL APTT (22.0-30.0) sec ABG pO2 (83-108) mmHg ABG HCO3 (21-25) mmol/L ABG Total CO2 26 H (19-24) mmol/L ABG O2 Saturation 97.6 H (94-97) % Sodium (137-145) mmol/L Chloride (98-107) mmol/L BUN (7-17) mg/dL Glucose (74-99) mg/dL POC Glucose (mg/dL) 171 H (70-110) mg/dL Phosphorus (2.5-4.5) mg/dL Magnesium (1.6-2.3) mg/dL Iron 12 L (50-170) UG/DL TIBC 182 L (228-460) UG/DL % Saturation 6.59 L (12.00-45.00) Transferrin 130.0 L (204.0-354.0) mg/dL Ferritin 308.0 H (10.0-291.0) ng/mL 07/14/23 07/14/23 07/15/23 Range/Units 17:34 23:54 05:45 WBC (3.8-10.6) k/uL RBC (3.80-5.40) m/uL Hgb (11.4-16.0) gm/dL Hct (34.0-46.0) % Plt Count (150-450) k/uL APTT (22.0-30.0) sec ABG pO2 (83-108) mmHg ABG HCO3 (21-25) mmol/L ABG Total CO2 (19-24) mmol/L ABG O2 Saturation (94-97) % Sodium 147 H (137-145) mmol/L Chloride 119 H (98-107) mmol/L BUN 37 H (7-17) mg/dL Glucose 165 H (74-99) mg/dL POC Glucose (mg/dL) 169 H 189 H (70-110) mg/dL Phosphorus 2.4 L (2.5-4.5) mg/dL Magnesium 2.7 H (1.6-2.3) mg/dL Iron (50-170) UG/DL TIBC (228-460) UG/DL % Saturation (12.00-45.00) Transferrin (204.0-354.0) mg/dL Ferritin (10.0-291.0) ng/mL 07/15/23 07/15/23 07/15/23 Range/Units 05:45 05:45 06:08 WBC 22.9 H (3.8-10.6) k/uL RBC 2.82 L (3.80-5.40) m/uL Hgb 7.8 L (11.4-16.0) gm/dL Hct 24.9 L (34.0-46.0) % Plt Count 480 H (150-450) k/uL APTT 74.2 H (22.0-30.0) sec ABG pO2 (83-108) mmHg ABG HCO3 (21-25) mmol/L ABG Total CO2 (19-24) mmol/L ABG O2 Saturation (94-97) % Sodium (137-145) mmol/L Chloride (98-107) mmol/L BUN (7-17) mg/dL Glucose (74-99) mg/dL POC Glucose (mg/dL) 184 H (70-110) mg/dL Phosphorus (2.5-4.5) mg/dL Magnesium (1.6-2.3) mg/dL Iron (50-170) UG/DL TIBC (228-460) UG/DL % Saturation (12.00-45.00) Transferrin (204.0-354.0) mg/dL Ferritin (10.0-291.0) ng/mL 07/15/23 Range/Units 08:38 WBC (3.8-10.6) k/uL RBC (3.80-5.40) m/uL Hgb (11.4-16.0) gm/dL Hct (34.0-46.0) % Plt Count (150-450) k/uL APTT (22.0-30.0) sec ABG pO2 71 L (83-108) mmHg ABG HCO3 26 H (21-25) mmol/L ABG Total CO2 27 H (19-24) mmol/L ABG O2 Saturation (94-97) % Sodium (137-145) mmol/L Chloride (98-107) mmol/L BUN (7-17) mg/dL Glucose (74-99) mg/dL POC Glucose (mg/dL) (70-110) mg/dL Phosphorus (2.5-4.5) mg/dL Magnesium (1.6-2.3) mg/dL Iron (50-170) UG/DL TIBC (228-460) UG/DL % Saturation (12.00-45.00) Transferrin (204.0-354.0) mg/dL Ferritin (10.0-291.0) ng/mL Microbiology - Last 24 Hours (Table) 07/12/23 16:00 Blood Culture - Preliminary Blood 07/11/23 00:22 Blood Culture Gram Stain - Final Blood Blood Culture - Final Enterococcus faecium VRE 07/11/23 18:08 Anaerobic Culture - Preliminary Abdomen 07/12/23 00:39 Gram Stain - Final Sputum Sputum Culture - Final Casandra albicans 07/11/23 18:08 Gram Stain - Final Abdomen Wound Culture - Final Casandra albicans - Imaging and Cardiology Chest x-ray: report reviewed, image reviewed Assessment and Plan Assessment: Left pleural effusion, status post placement of left pleural chest tube S/P repair of paraesophageal hernia Possible abdominal abscess Group D enterococcus bacteremia COPD Metabolic encephalopathy DANIEL HTN PAF PIPPA GERD Previous tobacco dependence Plan: We were removed for left pleural chest tube today. Oxygen management management per pulmonary/critical care recommendations. Encourage use of incentive spirometry 10 times every hour while awake. Medical management of other comorbidities per general surgery, pulmonology, cardiology, internal medicine, and infectious disease. We will continue to follow the patient on an as-needed basis. Time with Patient: Greater than 30
[2023-07-15] MEDS: METOPROLOL TARTRATE 5 MG/5 ML VIAL IVP PRN ×2 (10:52→19:23)
--- NOTE | 2023-07-15 10:56 | P.PN ---
Subjective Progress Note Date: 07/15/23 07/15/2023: Patient was seen for a follow-up. Patient has been seen by Dr. Duncan for the last 4 days. Please refer to his note for details. Patient denies headache, denies any pain anywhere else, although she appears uncomfortable. Patient sometimes receives Ativan for agitation. Patient was on a ventilator from 07/11/2023 and was extubated yesterday on 07/14/2023. 07/10/2023: Patient was seen for a follow-up. Patient apparently vomited a lot yesterday. An NG tube was placed. Biliary gastric secretions are being collected. Neurologically, patient is doing much better. Patient's daughter was present today, who agreed that patient is much better. Patient continues to have breathing difficulty, although better than yesterday. Her mentation has much improved. Patient has left pleural effusion, which may need thoracentesis. Telemetry monitoring showing sinus rhythm in the 60-70. Patient's sister denies patient having any history of tobacco use or alcohol use. She does not have any COPD or emphysema. Objective - Vital Signs Vital signs: Vital Signs Temp 99.0 F 07/15/23 04:00 Pulse 78 07/15/23 08:27 Resp 16 07/15/23 07:30 BP 147/68 07/15/23 07:30 Pulse Ox 94 L 07/15/23 07:30 FiO2 40 07/14/23 10:20 Intake & Output 07/14/23 07/15/23 07/15/23 18:59 06:59 18:59 Intake Total 405.049 7946.496 73 Output Total 930 1765 135 Balance -26.726 -609.504 -62 Weight 79.7 kg 80.5 kg Intake: IV 470 896 73 A line 30 36 3 Anidulafungin 200 mg In 130 Sodium Chloride 0.9% 200 ml @ 84 mls/hr IVPB ONCE ONE Rx#:[id number] DAPTOmycin 500 mg In 100 Sodium Chloride 0.9% 50 ml @ 100 mls/hr IVPB Q24H [facility] Rx#:[id number] Piperacillin-Tazobactam 3 100 .375 gm In Sodium Chloride 0.9% 100 ml @ 25 mls/hr IVPB Q8H [facility] Rx#: [id number] Piperacillin-Tazobactam 3 200 .375 gm In Sodium Chloride 0.9% 100 ml @ 25 mls/hr IVPB Q8HR [facility] Rx# :[id number] Potassium Chloride 10 meq 0 In Water For Injection 1 100ml.bag @ 100 mls/hr IVPB Q1H [facility] Rx#: [id number] Sodium Acetate 30 meq 540 60 Potassium Acetate 20 meq Calcium Gluconate 1 gm In Amino Acid 5%-D15w 1,000 ml @ 60 mls/hr IV .BY DURATION [facility] Rx#: [id number] kvo 110 120 10 Intake, IV Titration 333.274 259.496 0 Amount Diltiazem 125 mg In 75.75 25.916 0 Sodium Chloride 0.9% 100 ml @ 7.5 MG/HR 7.5 mls/hr IV .[id number] [facility] Rx#: [id number] Heparin Sod,Pork in 0.45% 172.992 233.58 NaCl 25,000 unit In 0.45 % NaCl 1 250ml.bag @ 12 UNITS/KG/HR 9.792 mls/hr IV .Q24H [facility] Rx#: [id number] Norepinephrine 4 mg In 10.003 Sodium Chloride 0.9% 250 ml @ 0.03 MCG/KG/MIN 7. 727 mls/hr IV .Q24H [facility] Rx#:[id number] propofoL 1,000 mg In 74.529 Empty Bag 1 bag @ 15 MCG/ KG/MIN 6.084 mls/hr IV . [id number] [facility] Rx#:[id number] Lipid 100 Sodium Ferric Gluconat- 100 Sucrose 125 mg In Sodium Chloride 0.9% 100 ml @ 100 mls/hr IVPB DAILY [facility] Rx#:[id number] Output: Chest Tube Drainage 140 30 Chest Tube Left 140 30 Gastric Drainage 900 75 Drainage 40 80 Left Abdomen 15 20 Right Abdomen 25 60 Urine 750 755 60 Other: Voiding Method Indwelling Catheter Indwelling Catheter ABP, PAP, CO, CI - Last Documented Arterial Blood Pressure 170/57 - Exam Patient's encephalopathy seems to have much improved. She still is quite short of breath. Patient's pupils are equal, round and reacting. The ptosis has resolved. Her speech is much clearer, and intelligible and understandable. Patient states it is June and could not tell the year. She believes that she is in [place]. Patient's breathing appears slightly better. Her face is more or less symmetric. Visual villegas appears full on confrontation with no neglect. Tongue protrudes the midline. On muscle strength testing, there is no obvious focal weakness on the left. Her wicker molded candles, biceps, triceps and deltoid are fairly normal and equal bilaterally. Patient wiggles her feet equally bilaterally. Sensory touch was equal but she did not cooperate well. No ataxia for [id number] testing. - Labs CBC & Chem 7: 07/15/23 05:45 07/15/23 05:45 Labs: Abnormal Lab Results - Last 24 Hours (Table) 07/14/23 07/14/23 07/14/23 Range/Units 04:15 10:55 12:48 WBC (3.8-10.6) k/uL RBC (3.80-5.40) m/uL Hgb (11.4-16.0) gm/dL Hct (34.0-46.0) % Plt Count (150-450) k/uL APTT (22.0-30.0) sec ABG pO2 (83-108) mmHg ABG HCO3 (21-25) mmol/L ABG Total CO2 26 H (19-24) mmol/L ABG O2 Saturation 97.6 H (94-97) % Sodium (137-145) mmol/L Chloride (98-107) mmol/L BUN (7-17) mg/dL Glucose (74-99) mg/dL POC Glucose (mg/dL) 171 H (70-110) mg/dL Phosphorus (2.5-4.5) mg/dL Magnesium (1.6-2.3) mg/dL Iron 12 L (50-170) UG/DL TIBC 182 L (228-460) UG/DL % Saturation 6.59 L (12.00-45.00) Transferrin 130.0 L (204.0-354.0) mg/dL Ferritin 308.0 H (10.0-291.0) ng/mL 07/14/23 07/14/23 07/15/23 Range/Units 17:34 23:54 05:45 WBC (3.8-10.6) k/uL RBC (3.80-5.40) m/uL Hgb (11.4-16.0) gm/dL Hct (34.0-46.0) % Plt Count (150-450) k/uL APTT (22.0-30.0) sec ABG pO2 (83-108) mmHg ABG HCO3 (21-25) mmol/L ABG Total CO2 (19-24) mmol/L ABG O2 Saturation (94-97) % Sodium 147 H (137-145) mmol/L Chloride 119 H (98-107) mmol/L BUN 37 H (7-17) mg/dL Glucose 165 H (74-99) mg/dL POC Glucose (mg/dL) 169 H 189 H (70-110) mg/dL Phosphorus 2.4 L (2.5-4.5) mg/dL Magnesium 2.7 H (1.6-2.3) mg/dL Iron (50-170) UG/DL TIBC (228-460) UG/DL % Saturation (12.00-45.00) Transferrin (204.0-354.0) mg/dL Ferritin (10.0-291.0) ng/mL 07/15/23 07/15/23 07/15/23 Range/Units 05:45 05:45 06:08 WBC 22.9 H (3.8-10.6) k/uL RBC 2.82 L (3.80-5.40) m/uL Hgb 7.8 L (11.4-16.0) gm/dL Hct 24.9 L (34.0-46.0) % Plt Count 480 H (150-450) k/uL APTT 74.2 H (22.0-30.0) sec ABG pO2 (83-108) mmHg ABG HCO3 (21-25) mmol/L ABG Total CO2 (19-24) mmol/L ABG O2 Saturation (94-97) % Sodium (137-145) mmol/L Chloride (98-107) mmol/L BUN (7-17) mg/dL Glucose (74-99) mg/dL POC Glucose (mg/dL) 184 H (70-110) mg/dL Phosphorus (2.5-4.5) mg/dL Magnesium (1.6-2.3) mg/dL Iron (50-170) UG/DL TIBC (228-460) UG/DL % Saturation (12.00-45.00) Transferrin (204.0-354.0) mg/dL Ferritin (10.0-291.0) ng/mL 07/15/23 Range/Units 08:38 WBC (3.8-10.6) k/uL RBC (3.80-5.40) m/uL Hgb (11.4-16.0) gm/dL Hct (34.0-46.0) % Plt Count (150-450) k/uL APTT (22.0-30.0) sec ABG pO2 71 L (83-108) mmHg ABG HCO3 26 H (21-25) mmol/L ABG Total CO2 27 H (19-24) mmol/L ABG O2 Saturation (94-97) % Sodium (137-145) mmol/L Chloride (98-107) mmol/L BUN (7-17) mg/dL Glucose (74-99) mg/dL POC Glucose (mg/dL) (70-110) mg/dL Phosphorus (2.5-4.5) mg/dL Magnesium (1.6-2.3) mg/dL Iron (50-170) UG/DL TIBC (228-460) UG/DL % Saturation (12.00-45.00) Transferrin (204.0-354.0) mg/dL Ferritin (10.0-291.0) ng/mL Microbiology - Last 24 Hours (Table) 07/12/23 16:00 Blood Culture - Preliminary Blood 07/11/23 00:22 Blood Culture Gram Stain - Final Blood Blood Culture - Final Enterococcus faecium VRE 07/11/23 18:08 Anaerobic Culture - Preliminary Abdomen 07/12/23 00:39 Gram Stain - Final Sputum Sputum Culture - Final Casandra albicans 07/11/23 18:08 Gram Stain - Final Abdomen Wound Culture - Final Casandra albicans Assessment and Plan Assessment: * Status post repair of gastric perforation, drainage abdominal abscess and lysis of adhesion. * Altered mental status, likely due to toxic metabolic encephalopathy--mentation fluctuating, which is likely due to ongoing toxic metabolic encephalopathy. * ProbableTIA, symptoms resolved * New onset atrial fibrillation with RVR * Recurrent paraesophageal hiatal hernia, Adhesions, GERD, status post laparoscopic repair of the paraesophageal hiatal hernia 07/01/2023. * Probable pneumonia * Pleural effusion, probably cardiogenic in nature. * Hypernatremia, due to dehydration, reappeared * Hypokalemia, resolved * Acute kidney injury, resolved * Hypertension * Hyperlipidemia * Anemia with hemoglobin 7.8 * Leukocytosis, with WBC count 22.9. * Chronic back pain * History of back surgery Plan: * Patient continues to have significant toxic metabolic encephalopathy. Patient has undergone significant surgery, and has multiple medical conditions, which is most likely is the cause of toxic metabolic encephalopathy. Her limited examination is nonfocal. * Pulmonary medicine on board for breathing difficulty and pleural effusion, possibly undergoing thoracentesis in the morning. * Appreciate ID input. RSV, influenza and hagen virus PCR negative. * Patient currently on Zosyn. * Also on Seroquel 12.5 mg twice a day when necessary for agitation * CT head revealed chronic appearing periventricular white matter ischemic changes. 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 I personally reviewed CT head, agree with the findings, although appears patient has old lacune's and bilateral basal ganglia. * Carotid Doppler 11/02/2021 revealed no evidence of hemodynamically significant stenosis, with antegrade flow in both vertebral arteries. * EEG was abnormal due to background slowing of moderate to severe degree. This is suggestive of generalized cerebral dysfunction as can be seen with toxic metabolic encephalopathy or related to diffuse structural brain abnormality. Clinical correlation is recommended. No epileptiform activity was seen. * CT of abdomen and pelvis revealed right upper lung peripheral groundglass opacities which could represent atypical pneumonia. Small left and trace right pleural effusions. No other definitive evidence for source of infectious process. No evidence of acute infectious process within the abdomen or pelvis. Colonic diverticulosis. * Agree with starting Eliquis 5 mg twice a day for stroke prevention related to atrial fibrillation * Patient's all focal neurological symptoms have resolved. Current NIH stroke scale is 0. 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 No need to repeat MRA/CTA. * 2-D echo revealed grossly normal left-ventricular systolic function with EF 55%. Mild right ventricle dilation. Mild MR, mild biatrial dilation. Sclerotic aortic valve with no stenosis. Left atrial mild dilation. * B12 1816, folate 7.60. We will start folate replacement. TSH normal 0.701. * Medical management of the various conditions as per IM. * Neurology will follow sporadically. Discussed with patient's daughter and nursing staff in detail.
--- NOTE | 2023-07-15 11:05 | XR ---
EXAMINATION TYPE: XR chest 1V portable DATE OF EXAM: 07/15/2023 Comparison: 07/14/2023 Clinical History: 82-year-old female with effusion Findings: NG tube may have been pulled back slightly. The sidehole is at the GE junction level. Mild to moderat e cardiomegaly. Worsening interstitial and bilateral hazy and patchy opacities, left greater than rig ht. Worsening confluent left mid and lower lung opacity. Left-sided chest tube is in place. No apprec iable pneumothorax. Impression: 1. Interval worsening aeration. Correlate for developing patchy pulmonary edema, left greater than ri ght. 2. Aeration is particularly worsening in the left mid and lower lung. Probable underlying pleural eff usion as well. 3. Left-sided chest tube in place. No appreciable pneumothorax. 4. NG tube may have been pulled back slightly. The sidehole is at the GE junction level.
--- NOTE | 2023-07-15 11:48 | P.PN ---
Subjective Patient is seen for follow-up for acute kidney injury and volume overload. Status post IV Lasix this morning for worsening respiratory status. She remains on TPN. Sodium was elevated at 147. Sodium was decreased in TPN yesterday. Serum creatinine is down to 0.78 mg/dL. Urine output at 1200 mL mL last 2 hours after IV Lasix Objective - Vital Signs Vital signs: Vital Signs Temp 98.4 F 07/15/23 08:00 Pulse 140 H 07/15/23 10:45 Resp 26 H 07/15/23 10:45 BP 154/80 07/15/23 10:45 Pulse Ox 91 L 07/15/23 10:45 FiO2 40 07/15/23 11:44 Intake & Output 07/14/23 07/15/23 07/15/23 18:59 06:59 18:59 Intake Total 883.282 7438.496 325 Output Total 930 1765 1685 Balance -26.726 -609.504 -1360 Weight 79.7 kg 80.5 kg Intake: IV 470 896 325 A line 30 36 15 Anidulafungin 100 mg In 100 Sodium Chloride 0.9% 100 ml @ 84 mls/hr IVPB DAILY [facility] Rx#:[id number] Anidulafungin 200 mg In 130 Sodium Chloride 0.9% 200 ml @ 84 mls/hr IVPB ONCE ONE Rx#:[id number] DAPTOmycin 500 mg In 100 Sodium Chloride 0.9% 50 ml @ 100 mls/hr IVPB Q24H [facility] Rx#:[id number] Piperacillin-Tazobactam 3 100 100 .375 gm In Sodium Chloride 0.9% 100 ml @ 25 mls/hr IVPB Q8H [facility] Rx#: [id number] Piperacillin-Tazobactam 3 200 .375 gm In Sodium Chloride 0.9% 100 ml @ 25 mls/hr IVPB Q8HR [facility] Rx# :[id number] Potassium Chloride 10 meq 0 In Water For Injection 1 100ml.bag @ 100 mls/hr IVPB Q1H [facility] Rx#: [id number] Sodium Acetate 30 meq 540 60 Potassium Acetate 20 meq Calcium Gluconate 1 gm In Amino Acid 5%-D15w 1,000 ml @ 60 mls/hr IV .BY DURATION [facility] Rx#: [id number] kvo 110 120 50 Intake, IV Titration 333.274 259.496 0 Amount Diltiazem 125 mg In 75.75 25.916 0 Sodium Chloride 0.9% 100 ml @ 7.5 MG/HR 7.5 mls/hr IV .[id number] [facility] Rx#: [id number] Heparin Sod,Pork in 0.45% 172.992 233.58 NaCl 25,000 unit In 0.45 % NaCl 1 250ml.bag @ 12 UNITS/KG/HR 9.792 mls/hr IV .Q24H [facility] Rx#: [id number] Norepinephrine 4 mg In 10.003 Sodium Chloride 0.9% 250 ml @ 0.03 MCG/KG/MIN 7. 727 mls/hr IV .Q24H [facility] Rx#:[id number] propofoL 1,000 mg In 74.529 Empty Bag 1 bag @ 15 MCG/ KG/MIN 6.084 mls/hr IV . [id number] [facility] Rx#:[id number] Lipid 100 Sodium Ferric Gluconat- 100 Sucrose 125 mg In Sodium Chloride 0.9% 100 ml @ 100 mls/hr IVPB DAILY [facility] Rx#:[id number] Output: Chest Tube Drainage 140 30 100 Chest Tube Left 140 30 100 Gastric Drainage 900 75 Drainage 40 80 30 Left Abdomen 15 20 Right Abdomen 25 60 30 Urine 669 448 0566 Other: Voiding Method Indwelling Catheter Indwelling Catheter ABP, PAP, CO, CI - Last Documented Arterial Blood Pressure 175/76 - Exam Patient is awake, restless, NG tube No acute distress Examination of the heart S1 and S2 Examination of the lungs bilateral breath sounds are heard Abdomen is dressed Examination of lower extremities shows edema 1+ bilaterally. - Labs CBC & Chem 7: 07/15/23 05:45 07/15/23 05:45 Labs: Abnormal Lab Results - Last 24 Hours (Table) 07/14/23 07/14/23 07/14/23 Range/Units 04:15 12:48 17:34 WBC (3.8-10.6) k/uL RBC (3.80-5.40) m/uL Hgb (11.4-16.0) gm/dL Hct (34.0-46.0) % Plt Count (150-450) k/uL APTT (22.0-30.0) sec ABG pO2 (83-108) mmHg ABG HCO3 (21-25) mmol/L ABG Total CO2 (19-24) mmol/L Sodium (137-145) mmol/L Chloride (98-107) mmol/L BUN (7-17) mg/dL Glucose (74-99) mg/dL POC Glucose (mg/dL) 171 H 169 H (70-110) mg/dL Phosphorus (2.5-4.5) mg/dL Magnesium (1.6-2.3) mg/dL Iron 12 L (50-170) UG/DL TIBC 182 L (228-460) UG/DL % Saturation 6.59 L (12.00-45.00) Transferrin 130.0 L (204.0-354.0) mg/dL Ferritin 308.0 H (10.0-291.0) ng/mL 07/14/23 07/15/23 07/15/23 Range/Units 23:54 05:45 05:45 WBC (3.8-10.6) k/uL RBC (3.80-5.40) m/uL Hgb (11.4-16.0) gm/dL Hct (34.0-46.0) % Plt Count (150-450) k/uL APTT 74.2 H (22.0-30.0) sec ABG pO2 (83-108) mmHg ABG HCO3 (21-25) mmol/L ABG Total CO2 (19-24) mmol/L Sodium 147 H (137-145) mmol/L Chloride 119 H (98-107) mmol/L BUN 37 H (7-17) mg/dL Glucose 165 H (74-99) mg/dL POC Glucose (mg/dL) 189 H (70-110) mg/dL Phosphorus 2.4 L (2.5-4.5) mg/dL Magnesium 2.7 H (1.6-2.3) mg/dL Iron (50-170) UG/DL TIBC (228-460) UG/DL % Saturation (12.00-45.00) Transferrin (204.0-354.0) mg/dL Ferritin (10.0-291.0) ng/mL 07/15/23 07/15/23 07/15/23 Range/Units 05:45 06:08 08:38 WBC 22.9 H (3.8-10.6) k/uL RBC 2.82 L (3.80-5.40) m/uL Hgb 7.8 L (11.4-16.0) gm/dL Hct 24.9 L (34.0-46.0) % Plt Count 480 H (150-450) k/uL APTT (22.0-30.0) sec ABG pO2 71 L (83-108) mmHg ABG HCO3 26 H (21-25) mmol/L ABG Total CO2 27 H (19-24) mmol/L Sodium (137-145) mmol/L Chloride (98-107) mmol/L BUN (7-17) mg/dL Glucose (74-99) mg/dL POC Glucose (mg/dL) 184 H (70-110) mg/dL Phosphorus (2.5-4.5) mg/dL Magnesium (1.6-2.3) mg/dL Iron (50-170) UG/DL TIBC (228-460) UG/DL % Saturation (12.00-45.00) Transferrin (204.0-354.0) mg/dL Ferritin (10.0-291.0) ng/mL Microbiology - Last 24 Hours (Table) 07/12/23 16:00 Blood Culture - Preliminary Blood 07/11/23 00:22 Blood Culture Gram Stain - Final Blood Blood Culture - Final Enterococcus faecium VRE 07/11/23 18:08 Anaerobic Culture - Preliminary Abdomen 07/12/23 00:39 Gram Stain - Final Sputum Sputum Culture - Final Casandra albicans 07/11/23 18:08 Gram Stain - Final Abdomen Wound Culture - Final Casandra albicans Assessment and Plan Assessment: 1. Acute kidney injury, ATN, currently nonoliguric. Patient is maintained on TPN which we can continue. UA on 07/08/2023 showed 1+ protein and trace blood. This appears to be a [place] specimen. No obstruction noted on CT of the abdomen on 07/11/2023. 2. 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 3. Volume overload with significant positive balance since admission. Status post IV Lasix which we will continue 4. Left pleural effusion status post chest tube placement 5. A. fib with RVR maintained on Cardizem drip 6. Septic shock due to gastric perforation and abdominal abscess. Blood cultures were growing group D enterococcus and abdominal fluid is growing Casandra albicans. 7. Anemia rule with severe iron deficiency Plan: Repeat IV Lasix Adjust TPN for high sodium Add IV iron Continue antibiotics and repeat labs in a.m.
--- NOTE | 2023-07-15 11:52 | P.PN ---
Subjective Progress Note Date: 07/15/23 Principal diagnosis: Respiratory failure. This is an 82-year-old female with history of multiple medical problems including hypertension, CVA, dyslipidemia, iron deficiency anemia, depression and generalized anxiety disorder, patient was also noted to have recurrent paraesophageal hiatal hernia. On 07/01/2023, patient was admitted by Dr. Kendrick for elective laparoscopic repair of paraesophageal hernia with absorbable mesh. Procedure was done on 07/01/2023, and the patient was managed medically by internal medicine after the surgery. Since her admission till now, patient has been seen by many consultants including internal medicine, cardiology, general surgery, neurology, infectious disease, all along the patient was noted to have a small left pleural effusion, which was noted to be present 2 days after her surgery, and this pleural effusion was not present back in December of 2022 based on an old chest x-ray clearly this pleural effusion is considered relatively new and developed shortly after her surgery. Echocardiogram on this patient showed good ejection fraction, she had mild pulmonary hypertension, and she had moderate tricuspid regurgitation and sclerotic aortic valve was noted but no stenosis. On this admission the patient developed new onset paroxysmal atrial fibrillation, hence the patient was given metoprolol, and she was also placed on eliquis. Amiodarone was added. And intermittently the patient has been receiving Lasix for presumptive congestive heart failure. Ultrasound of the chest on 07/09 showed moderate left pleural effusion and small right pleural effusion, left side is amenable for thoracentesis. However the patient has been on eliquis all along, and I am recommending that we hold the eliquis today, and possibly consider thoracentesis in the next 24 hours. In the meantime patient will be given a dose of diuretics, I believe most likely the fluid is cardiogenic in nature unless proven otherwise. Again this fluid was not present prior to her admission. Not to mention during my examination the patient, she had diffuse rhonchi and wheezes bilaterally, she does have a nasogastric tube in place, and she definitely needs to be placed on bronchodilators to optimize her pulmonary status. Patient seems to have large nasogastric output today. Chest x-ray this morning showed congestive changes with left-sided pleural effusion. Possibility of congestive heart failure is very likely considering the chest x-ray appearan ce. BNP level today is almost 5000. Progress note dated 07/11/2023. 82-year-old female seen yesterday in consultation by my partner. The patient was admitted back on July 01, for an elective repair of a hiatal hernia. The patient's surgery took place on July 01. The patient was brought to the intensive care unit, on July 10, for atrial fibrillation with RVR, and low blood pressure. The patient is seen today in room 259. The patient's currently on Zosyn. The patient's on a liter high flow oxygen, and has an NG tube in place. The patient's getting 0.9 at KVO. A computed tomography scan of the abdomen and pelvis, apparently has revealed a fluid collection, in the abdomen. The surgery is considering exploratory laparotomy. In addition, because of new onset atrial fibrillation, the patient will have Dopplers of lower extremities. White count 13, hemoglobin 11, platelet count normal. D-dimer was 9. Blood gases show pO2 of 69, pCO2 45, and a pH of 7.4. This was on 35% oxygen. Sodium 141, potassium 3.8, chlorides 108, CO2 26, BUN 20, creatinine 0.8. Troponins were 0.096 and 0.144. Albumin was 2.2. Blood cultures are negative. Chest x- ray reveals a left lower lobe infiltrate with a left pleural effusion, and a possible left-sided pneumothorax. CT of the abdomen shows a interval development of a fluid collection, posterior to the stomach, measuring 4 cm x 9.4 cm. Progress note dated 07/12/2023. 82-year-old female seen in consultation 2 days ago by my partner. The patient was seen today in the intensive care unit. The patient had surgery yesterday. A computed tomography scan revealed an abnormality, posterior to the stomach. The patient is postop day #1, status post exploratory laparotomy, repair of gastric perforation, drainage of abdominal abscess, and lysis of adhesions. The surgery was done by Dr. La. The patient came back to the intensive care unit, on the mechanical ventilator. She remains on the mechanical ventilator. She is on the volume assist control, rate 20, tidal volume 400, FiO2 50%, and PEEP of 5. Blood gases show pO2 111, pCO2 of 40, and a pH is 7.37. The patient's getting lactated Ringer's at 75 mL an hour, propofol at 45 mcg/kg/m, norepinephrine, which is been weaned off, and a Cardizem drip of 5 mg an hour. The chest tube was placed by cardiothoracic surgery on the left side yesterday. The patient currently is on Zosyn and daptomycin. Blood cultures are apparently positive for possible streptococci, and vancomycin-resistant enterococci. White count 19.2, hemoglobin 9.8, hematocrit 30.7, and platelet count 488,000. Sodium 142, potassium 3.9, chlorides 113, CO2 22, BUN 35, creatinine 1.20. Magnesium is 2.2. Chest x-ray shows relatively clear right lung, properly positioned endotracheal tube, a left-sided chest tube, and some volume off in the left chest, with a residual left-sided pleural effusion. Progress note dated 07/13/2023. 82-year-old female seen in consultation 3 days ago, by my partner. The patient is currently in the intensive care unit, and continues on the mechanical ve ntilator. The patient is postop day #1, status post repair of the gastric perforation, drainage of abdominal abscess, exploratory laparotomy, and lysis of adhesions. The patient remains on mechanical ventilator, with volume assist control as a mode, rate 20, tidal volume 400, FiO2 40%, PEEP of 5. Blood gases show a PaO2 of 135, pCO2 45, and pH is 7.34. Blood gases were done on 50% FiO2. The patient is on Cardizem is 7.5 mg an hour, norepinephrine at about 5 mcg/m, and saline at KVO. The patient's also getting TPN at 30 mL an hour. The patient continues on Zosyn and daptomycin. Propofol is running at 40 mcg/kg/m. White count 18.4, hemoglobin 8.5, hematocrit 27.9, and platelet count 507,000. Sodium 144, potassium 4, chlorides 116, CO2 23, BUN 36, and creatinine 1.20. Microbiology is positive for group D enterococcus in the blood. Chest x-ray shows a left thoracotomy tube, with a small left-sided effusion. Doppler of the left upper extremity, was negative for DVT. Progress note dated 07/14/2023. 82-year-old female, seen today in room 259. She remains on mechanical ventil ator. She is postop day #2, status post repair of gastric perforation, drainage of abdominal abscess, exploratory laparotomy, and lysis of adhesions. Currently, the patient is on the volume assist control, rate 20, tidal volume 400, FiO2 40%, blood gases show pO2 113, pCO2 42, and pH is 7.39. She still has a left chest tube in place. The patient's on TPN at 60 mL an hour, propofol at 50 mcg/kg/m, and IV heparin. The patient also continues on daptomycin, Zosyn, and Eraxis. The patient will have a daily interruption of sedation, and a spontaneous breathing trial today. White count 16.9, in room 7.4, hematocrit 24.8, platelet count 475,000. Sodium 147, potassium 3.7, chlorides 118, CO2 22, BUN 37, and creatinine 0.85. Blood cultures on the of positive for group D enterococcus. Chest x-ray shows a small to moderate left-sided pleural effusion, and a left-sided chest tube. Progress note dated 07/15/2023. 82-year-old female seen today in room 259. The patient is postop day #3, status post repair of the gastric perforation, drainage of abdominal abscess, exploratory laparotomy, and lysis of adhesions. Yesterday, the patient was extubated from mechanical ventilation. Currently she is on 3 L of nasal cannula. NG tube is noted. She continues on IV heparin, and TPN at 60 mL an hour. Antibiotics include daptomycin, Zosyn, and Eraxis. Blood cultures were positive for vancomycin-resistant enterococci. The patient is having gurgling respirations, and I give her Lasix 60 mg IV push today. I told the nurse that that doesn't work, the patient can be placed on BiPAP, and I gave her BiPAP settings. White count is 22.9, hemoglobin 7.8, hematocrit 20.9, and platelet count 480,000. Blood gases show pO2 71, pCO2 of 41, and a pH is 7.41. That was on 3 L. Sodium 147, potassium 4, chlorides 119, CO2 24, BUN 37, and creatinine 0.78. Magnesium is 2.7. Phosphorus is 2.4. Glucose is 165. Chest x-ray shows bilateral patchy infiltrates, which could be consistent with either infection and/or pulmonary edema. Left chest tube remains in place. Objective - Vital Signs Vital signs: Vital Signs Temp 98.4 F 07/15/23 08:00 Pulse 140 H 07/15/23 10:45 Resp 26 H 07/15/23 10:45 BP 154/80 07/15/23 10:45 Pulse Ox 91 L 07/15/23 10:45 FiO2 40 07/15/23 11:44 Intake & Output 07/14/23 07/15/23 07/15/23 18:59 06:59 18:59 Intake Total 981.902 0051.496 325 Output Total 930 1765 1685 Balance -26.726 -609.504 -1360 Weight 79.7 kg 80.5 kg Intake: IV 470 896 325 A line 30 36 15 Anidulafungin 100 mg In 100 Sodium Chloride 0.9% 100 ml @ 84 mls/hr IVPB DAILY [facility] Rx#:[id number] Anidulafungin 200 mg In 130 Sodium Chloride 0.9% 200 ml @ 84 mls/hr IVPB ONCE ONE Rx#:[id number] DAPTOmycin 500 mg In 100 Sodium Chloride 0.9% 50 ml @ 100 mls/hr IVPB Q24H [facility] Rx#:[id number] Piperacillin-Tazobactam 3 100 100 .375 gm In Sodium Chloride 0.9% 100 ml @ 25 mls/hr IVPB Q8H [facility] Rx#: [id number] Piperacillin-Tazobactam 3 200 .375 gm In Sodium Chloride 0.9% 100 ml @ 25 mls/hr IVPB Q8HR [facility] Rx# :[id number] Potassium Chloride 10 meq 0 In Water For Injection 1 100ml.bag @ 100 mls/hr IVPB Q1H [facility] Rx#: [id number] Sodium Acetate 30 meq 540 60 Potassium Acetate 20 meq Calcium Gluconate 1 gm In Amino Acid 5%-D15w 1,000 ml @ 60 mls/hr IV .BY DURATION [facility] Rx#: [id number] kvo 110 120 50 Intake, IV Titration 333.274 259.496 0 Amount Diltiazem 125 mg In 75.75 25.916 0 Sodium Chloride 0.9% 100 ml @ 7.5 MG/HR 7.5 mls/hr IV .[id number] [facility] Rx#: [id number] Heparin Sod,Pork in 0.45% 172.992 233.58 NaCl 25,000 unit In 0.45 % NaCl 1 250ml.bag @ 12 UNITS/KG/HR 9.792 mls/hr IV .Q24H [facility] Rx#: [id number] Norepinephrine 4 mg In 10.003 Sodium Chloride 0.9% 250 ml @ 0.03 MCG/KG/MIN 7. 727 mls/hr IV .Q24H [facility] Rx#:[id number] propofoL 1,000 mg In 74.529 Empty Bag 1 bag @ 15 MCG/ KG/MIN 6.084 mls/hr IV . [id number] [facility] Rx#:[id number] Lipid 100 Sodium Ferric Gluconat- 100 Sucrose 125 mg In Sodium Chloride 0.9% 100 ml @ 100 mls/hr IVPB DAILY [facility] Rx#:[id number] Output: Chest Tube Drainage 140 30 100 Chest Tube Left 140 30 100 Gastric Drainage 900 75 Drainage 40 80 30 Left Abdomen 15 20 Right Abdomen 25 60 30 Urine [id number] Other: Voiding Method Indwelling Catheter Indwelling Catheter ABP, PAP, CO, CI - Last Documented Arterial Blood Pressure 175/76 - Exam No acute distress, lethargic, but arousable, with nasal O2. NG tube is noted. HEENT examination is grossly unremarkable. Mucous membranes are moist. No oral lesions. NG tube in place. Neck supple. Full range of motion. No adenopathy thyromegaly or neck vein distention. Cardiovascular examination reveals regular rhythm rate. S1-S2 normal. No S3 or S4. No discernible murmur noted. Heart sounds are distant. Heart rate 100 bpm. Lungs reveal scattered rhonchi. No wheezes or crackles. Breath sounds equal. Saturations 84 %. A left-sided chest tube is noted. Abdomen soft, without bowel sounds. Extremities are intact. No cyanosis clubbing or edema. Skin is without rash or lesion. Neurologic examination not able to be evaluated at this time. - Labs CBC & Chem 7: 07/15/23 05:45 07/15/23 05:45 Labs: Abnormal Lab Results - Last 24 Hours (Table) 07/14/23 07/14/23 07/14/23 Range/Units 04:15 12:48 17:34 WBC (3.8-10.6) k/uL RBC (3.80-5.40) m/uL Hgb (11.4-16.0) gm/dL Hct (34.0-46.0) % Plt Count (150-450) k/uL APTT (22.0-30.0) sec ABG pO2 (83-108) mmHg ABG HCO3 (21-25) mmol/L ABG Total CO2 (19-24) mmol/L Sodium (137-145) mmol/L Chloride (98-107) mmol/L BUN (7-17) mg/dL Glucose (74-99) mg/dL POC Glucose (mg/dL) 171 H 169 H (70-110) mg/dL Phosphorus (2.5-4.5) mg/dL Magnesium (1.6-2.3) mg/dL Iron 12 L (50-170) UG/DL TIBC 182 L (228-460) UG/DL % Saturation 6.59 L (12.00-45.00) Transferrin 130.0 L (204.0-354.0) mg/dL Ferritin 308.0 H (10.0-291.0) ng/mL 07/14/23 07/15/23 07/15/23 Range/Units 23:54 05:45 05:45 WBC (3.8-10.6) k/uL RBC (3.80-5.40) m/uL Hgb (11.4-16.0) gm/dL Hct (34.0-46.0) % Plt Count (150-450) k/uL APTT 74.2 H (22.0-30.0) sec ABG pO2 (83-108) mmHg ABG HCO3 (21-25) mmol/L ABG Total CO2 (19-24) mmol/L Sodium 147 H (137-145) mmol/L Chloride 119 H (98-107) mmol/L BUN 37 H (7-17) mg/dL Glucose 165 H (74-99) mg/dL POC Glucose (mg/dL) 189 H (70-110) mg/dL Phosphorus 2.4 L (2.5-4.5) mg/dL Magnesium 2.7 H (1.6-2.3) mg/dL Iron (50-170) UG/DL TIBC (228-460) UG/DL % Saturation (12.00-45.00) Transferrin (204.0-354.0) mg/dL Ferritin (10.0-291.0) ng/mL 07/15/23 07/15/23 07/15/23 Range/Units 05:45 06:08 08:38 WBC 22.9 H (3.8-10.6) k/uL RBC 2.82 L (3.80-5.40) m/uL Hgb 7.8 L (11.4-16.0) gm/dL Hct 24.9 L (34.0-46.0) % Plt Count 480 H (150-450) k/uL APTT (22.0-30.0) sec ABG pO2 71 L (83-108) mmHg ABG HCO3 26 H (21-25) mmol/L ABG Total CO2 27 H (19-24) mmol/L Sodium (137-145) mmol/L Chloride (98-107) mmol/L BUN (7-17) mg/dL Glucose (74-99) mg/dL POC Glucose (mg/dL) 184 H (70-110) mg/dL Phosphorus (2.5-4.5) mg/dL Magnesium (1.6-2.3) mg/dL Iron (50-170) UG/DL TIBC (228-460) UG/DL % Saturation (12.00-45.00) Transferrin (204.0-354.0) mg/dL Ferritin (10.0-291.0) ng/mL Microbiology - Last 24 Hours (Table) 07/12/23 16:00 Blood Culture - Preliminary Blood 07/11/23 00:22 Blood Culture Gram Stain - Final Blood Blood Culture - Final Enterococcus faecium VRE 07/11/23 18:08 Anaerobic Culture - Preliminary Abdomen 07/12/23 00:39 Gram Stain - Final Sputum Sputum Culture - Final Casandra albicans 07/11/23 18:08 Gram Stain - Final Abdomen Wound Culture - Final Casandra albicans Assessment and Plan Assessment: Postop day #14, status post repair of her recurrent paraesophageal hernia. Postop day 4, status post exploratory laparotomy, repair of gastric perforation, drainage of abdominal abscess, and lysis of adhesions. Status post left-sided chest tube placement, 07/11/2023. COPD, acutely active. Mental status changes, secondary to metabolic encephalopathy. Acute kidney injury. Benign essential hypertension. Paroxysmal atrial fibrillation, with rapid ventricular response. Generalized anxiety disorder. GERD with esophagitis. Restless leg syndrome. Chronic back pain. Previous tobacco use. Plan: Plan dated 07/11/2023. The patient is acutely. She remains in the intensive care unit. The patient's on 8 L of oxygen, high flow. She does have a left-sided pleural effusion, and may have a left-sided pneumothorax. I did speak to the surgeon, was planning on doing exploratory laparotomy, evaluated the fluid collection, posterior to the stomach. The patient will likely come back to the intensive care unit, on the mechanical ventilator. Additional recommendations and suggestions are forthcoming. Labs, x-rays, medications are reviewed. X-rays are negative. She remains on Zosyn. Follow make recommendations along the way. Prognosis is guarded. Plan dated 07/12/2023. The patient went to the operating room yesterday, for a fluid collection behind the stomach. The patient was discovered to have a perforated stomach, and abscess, that was drained, and lysis of adhesions. The patient came back to the ICU on the ventilator. She remains on the ventilator at this time. She continues on propofol, and Cardizem 5 mg an hour. She has a left chest tube was placed by cardiothoracic surgery for left pleural effusion and possible left- sided pneumothorax. The patient's on Zosyn and daptomycin, for vancomycin- resistant enterococci, and possible streptococci. Additional recommendations and suggestions are forthcoming. Prognosis is guarded. We will continue to follow the patient, make recommendations along the way. Plan dated 07/13/2023. The patient is critically ill, in the intensive care unit, on the mechanical breathing machine. She seen today in room 259. We will attempt a daily interruption of sedation, although I'm positive, the patient is not yet ready for weaning and extubation. She continues on propofol, Cardizem, and norepinephrine. She is now getting TPN at 30 mL an hour. Blood gases are reasonable. The FiO2 was reduced from 50%, down to 40%. Labs, x-rays, and medications are reviewed. We will continue to follow the patient, and make recommendations along the way. The patient's overall prognosis remains very guarded. Plan dated 07/14/2023. The patient will have a daily interruption of sedation, and a spontaneous breathing trial today, on pressure support of 5, and CPAP of 5. Labs, x-rays, medications are reviewed. The patient may be ready for extubation. I will ask for a full set a weaning parameters, and a cuff leak test, after 20-30 minutes on pressure support. The patient continues on TPN at 60 mL an hour. The patient continues on IV heparin. The patient also continues on Eraxis, daptomycin, and Zosyn. We will continue to follow the patient, and make recommendations along the way. Prognosis is guarded. Plan dated 07/15/2023. The patient's overall respiratory status is somewhat tenuous. She gets Lasix 60 mg IV push. I gave orders for BiPAP, with settings, should that not help the situation. The patient was extubated yesterday. NG tube remains in place. Labs, x-rays, and medications are reviewed. She continues on IV heparin, and TPN at 60 mL an hour. She continues on daptomycin, Zosyn, and Eraxis. Additional recommendations and suggestions are forthcoming. The patient's overall prognosis remains poor. I'm hopeful that we can keep the patient off of mechanical ventilation,, there is always a chance, that she may get back on the ventilator. Time with Patient: Greater than 30
[2023-07-15 12:13] LABS: Glucose,Whole Blood 228 mg/dL (70-110)
[2023-07-15] MEDS ORDERED: FUROSEMIDE 10 MG/ML 10 ML VIAL IV ONE (13:00)
--- NOTE | 2023-07-15 13:21 | P.PN ---
Subjective Progress Note Date: 07/15/23 CHIEF COMPLAINT: Recurrent paraesophageal hiatal hernia HISTORY OF PRESENT ILLNESS: Patient required to be taken back to the OR due to fluid fluid collection posterior's to the stomach noted on CT. Postop day #4 status post exploratory laparotomy, repair of gastric perforation 2, drainage of abdominal abscess and lysis of adhesions. Patient had chest tube placed intraoperatively by cardiothoracic surgeon for left-sided pleural effusion and possible left-sided pneumothorax. She is postop day #14 status post laparoscopic repair of paraesophageal hiatal hernia with mesh, lysis of adhesions and partial gastrectomy. Patient was extubated yesterday. She is receiving a dose of IV Lasix for fluid overload. Her JENI drain bulb was clotted. New JENI drain bulb placed this morning. The right JENI drain fluid is no longer purulent. It is serosanguineous in color. He febrile. Tachycardic. On IV heparin and Cardizem drip for A. fib. Patient was restless and did receive a small dose of Haldol. NG tube 675 mL output PHYSICAL EXAM: VITAL SIGNS: Reviewed. GENERAL: Intubated CHEST: Left-sided chest tube ABDOMEN: Soft. Nondistended. Midline incisional dressing clean dry and intact. JENI drains right currently no output and left serous NEURO: Awake but confused ASSESSMENT: 1. Gastric perforation status post exploratory laparotomy, repair of gastric perforation 2, drainage of abdominal abscess and lysis of adhesions 2. Recurrent paraesophageal hiatal hernia, Adhesions, GERD status post laparoscopic repair of paraesophageal hiatal hernia with mesh, lysis of adhesions and partial gastrectomy on 07/01/2023 3. A. fib with RVR 4. Altered mental status secondary to Metabolic encephalopathy 5. Possible TIA 6. Iron deficiency anemia PLAN: -Continue ICU management -Continue pain management -Continue antibiotics -IV iron daily ordered she has received one out of 3 bags -Continue supportive care Physician Material Clerk note has been reviewed by physician. Signing provider agrees with the documented findings, assessment, and plan of care. I have personally seen and examined the patient, reviewed the PHARMACEUTICAL WORKER /PAs history, exam and MDM and agree with the assessment and plan as written. Based on total visit time, I have performed more than 50% of the visit. Patient remains extubated. Some shortness of breath this morning. Receiving Lasix for fluid overload. White blood cell count elevated. Cultures showing Casandra remains on antifungal. left JENI drain serous right JENI drain now sanguinous. Hemoglobin 7.8 today. Continue antibiotics and supportive care. Clinical scenario reviewed with the patient's daughter by phone. Continue bowel rest and gastric decompression. Objective - Vital Signs Vital signs: Vital Signs Temp 99.0 F 07/15/23 04:00 Pulse 78 07/15/23 08:27 Resp 16 07/15/23 07:30 BP 147/68 07/15/23 07:30 Pulse Ox 94 L 07/15/23 07:30 FiO2 40 07/14/23 10:20 Intake & Output 07/14/23 07/15/23 07/15/23 18:59 06:59 18:59 Intake Total 829.054 4133.496 73 Output Total 930 1765 135 Balance -26.726 -609.504 -62 Weight 79.7 kg 80.5 kg Intake: IV 470 896 73 A line 30 36 3 Anidulafungin 200 mg In 130 Sodium Chloride 0.9% 200 ml @ 84 mls/hr IVPB ONCE ONE Rx#:[id number] DAPTOmycin 500 mg In 100 Sodium Chloride 0.9% 50 ml @ 100 mls/hr IVPB Q24H [facility] Rx#:[id number] Piperacillin-Tazobactam 3 100 .375 gm In Sodium Chloride 0.9% 100 ml @ 25 mls/hr IVPB Q8H [facility] Rx#: [id number] Piperacillin-Tazobactam 3 200 .375 gm In Sodium Chloride 0.9% 100 ml @ 25 mls/hr IVPB Q8HR [facility] Rx# :[id number] Potassium Chloride 10 meq 0 In Water For Injection 1 100ml.bag @ 100 mls/hr IVPB Q1H [facility] Rx#: [id number] Sodium Acetate 30 meq 540 60 Potassium Acetate 20 meq Calcium Gluconate 1 gm In Amino Acid 5%-D15w 1,000 ml @ 60 mls/hr IV .BY DURATION [facility] Rx#: [id number] kvo 110 120 10 Intake, IV Titration 333.274 259.496 0 Amount Diltiazem 125 mg In 75.75 25.916 0 Sodium Chloride 0.9% 100 ml @ 7.5 MG/HR 7.5 mls/hr IV .[id number] [facility] Rx#: [id number] Heparin Sod,Pork in 0.45% 172.992 233.58 NaCl 25,000 unit In 0.45 % NaCl 1 250ml.bag @ 12 UNITS/KG/HR 9.792 mls/hr IV .Q24H [facility] Rx#: [id number] Norepinephrine 4 mg In 10.003 Sodium Chloride 0.9% 250 ml @ 0.03 MCG/KG/MIN 7. 727 mls/hr IV .Q24H [facility] Rx#:[id number] propofoL 1,000 mg In 74.529 Empty Bag 1 bag @ 15 MCG/ KG/MIN 6.084 mls/hr IV . [id number] [facility] Rx#:[id number] Lipid 100 Sodium Ferric Gluconat- 100 Sucrose 125 mg In Sodium Chloride 0.9% 100 ml @ 100 mls/hr IVPB DAILY [facility] Rx#:[id number] Output: Chest Tube Drainage 140 30 Chest Tube Left 140 30 Gastric Drainage 900 75 Drainage 40 80 Left Abdomen 15 20 Right Abdomen 25 60 Urine 750 755 60 Other: Voiding Method Indwelling Catheter Indwelling Catheter ABP, PAP, CO, CI - Last Documented Arterial Blood Pressure 170/57 - Labs CBC & Chem 7: 07/15/23 05:45 07/15/23 05:45 Labs: Abnormal Lab Results - Last 24 Hours (Table) 07/14/23 07/14/23 07/14/23 Range/Units 04:15 10:55 12:48 WBC (3.8-10.6) k/uL RBC (3.80-5.40) m/uL Hgb (11.4-16.0) gm/dL Hct (34.0-46.0) % Plt Count (150-450) k/uL APTT (22.0-30.0) sec ABG pO2 (83-108) mmHg ABG HCO3 (21-25) mmol/L ABG Total CO2 26 H (19-24) mmol/L ABG O2 Saturation 97.6 H (94-97) % Sodium (137-145) mmol/L Chloride (98-107) mmol/L BUN (7-17) mg/dL Glucose (74-99) mg/dL POC Glucose (mg/dL) 171 H (70-110) mg/dL Phosphorus (2.5-4.5) mg/dL Magnesium (1.6-2.3) mg/dL Iron 12 L (50-170) UG/DL TIBC 182 L (228-460) UG/DL % Saturation 6.59 L (12.00-45.00) Transferrin 130.0 L (204.0-354.0) mg/dL Ferritin 308.0 H (10.0-291.0) ng/mL 07/14/23 07/14/23 07/15/23 Range/Units 17:34 23:54 05:45 WBC (3.8-10.6) k/uL RBC (3.80-5.40) m/uL Hgb (11.4-16.0) gm/dL Hct (34.0-46.0) % Plt Count (150-450) k/uL APTT (22.0-30.0) sec ABG pO2 (83-108) mmHg ABG HCO3 (21-25) mmol/L ABG Total CO2 (19-24) mmol/L ABG O2 Saturation (94-97) % Sodium 147 H (137-145) mmol/L Chloride 119 H (98-107) mmol/L BUN 37 H (7-17) mg/dL Glucose 165 H (74-99) mg/dL POC Glucose (mg/dL) 169 H 189 H (70-110) mg/dL Phosphorus 2.4 L (2.5-4.5) mg/dL Magnesium 2.7 H (1.6-2.3) mg/dL Iron (50-170) UG/DL TIBC (228-460) UG/DL % Saturation (12.00-45.00) Transferrin (204.0-354.0) mg/dL Ferritin (10.0-291.0) ng/mL 07/15/23 07/15/23 07/15/23 Range/Units 05:45 05:45 06:08 WBC 22.9 H (3.8-10.6) k/uL RBC 2.82 L (3.80-5.40) m/uL Hgb 7.8 L (11.4-16.0) gm/dL Hct 24.9 L (34.0-46.0) % Plt Count 480 H (150-450) k/uL APTT 74.2 H (22.0-30.0) sec ABG pO2 (83-108) mmHg ABG HCO3 (21-25) mmol/L ABG Total CO2 (19-24) mmol/L ABG O2 Saturation (94-97) % Sodium (137-145) mmol/L Chloride (98-107) mmol/L BUN (7-17) mg/dL Glucose (74-99) mg/dL POC Glucose (mg/dL) 184 H (70-110) mg/dL Phosphorus (2.5-4.5) mg/dL Magnesium (1.6-2.3) mg/dL Iron (50-170) UG/DL TIBC (228-460) UG/DL % Saturation (12.00-45.00) Transferrin (204.0-354.0) mg/dL Ferritin (10.0-291.0) ng/mL 07/15/23 Range/Units 08:38 WBC (3.8-10.6) k/uL RBC (3.80-5.40) m/uL Hgb (11.4-16.0) gm/dL Hct (34.0-46.0) % Plt Count (150-450) k/uL APTT (22.0-30.0) sec ABG pO2 71 L (83-108) mmHg ABG HCO3 26 H (21-25) mmol/L ABG Total CO2 27 H (19-24) mmol/L ABG O2 Saturation (94-97) % Sodium (137-145) mmol/L Chloride (98-107) mmol/L BUN (7-17) mg/dL Glucose (74-99) mg/dL POC Glucose (mg/dL) (70-110) mg/dL Phosphorus (2.5-4.5) mg/dL Magnesium (1.6-2.3) mg/dL Iron (50-170) UG/DL TIBC (228-460) UG/DL % Saturation (12.00-45.00) Transferrin (204.0-354.0) mg/dL Ferritin (10.0-291.0) ng/mL Microbiology - Last 24 Hours (Table) 07/12/23 16:00 Blood Culture - Preliminary Blood 07/11/23 00:22 Blood Culture Gram Stain - Final Blood Blood Culture - Final Enterococcus faecium VRE 07/11/23 18:08 Anaerobic Culture - Preliminary Abdomen 07/12/23 00:39 Gram Stain - Final Sputum Sputum Culture - Final Casandra albicans 07/11/23 18:08 Gram Stain - Final Abdomen Wound Culture - Final Casandra albicans
[2023-07-15] MEDS: SODIUM FERRIC GLUCONAT-SUCROSE 125 MG in SODIUM CHLORIDE 0.9% 100 ML IVPB SCH (13:22)
[2023-07-15] MEDS: LIDOCAINE 4% PATCH TOPICAL SCH (13:34)
--- NOTE | 2023-07-15 16:14 | P.PN ---
Subjective 82-year-old female patient with history of hypertension, hyperlipidemia, CVA/TIA, restless leg syndrome, iron deficiency anemia, anxiety/depression, recurrent paraesophageal hiatal hernia, admitted to the hospital for elective laparoscopic repair of paraesophageal hernia with absorbable mesh -- Patient underwent procedure on 07/01/2023 with POD #0 - Internal medicine service is consulted for medical management - Patient is evaluated resting in bed; reports uncontrolled pain; requesting anti-anxiety medication which is usually requires/inpatient 07/03/2023 patient is seen and evaluated in room at bedside; reports some difficulty breathing VS are reviewed; O2 saturation at 93% with some basilar crackles -- we will order BNP and stat Cxray; patient remains on IV Zosyn -- Sodium is elevated at 146; patient is placed on slow IVF hydration 07/15/2023 -- patient is postop day #3, status post repair of the gastric perforation, drainage of abdominal abscess, exploratory laparotomy, and lysis of adhesions. Yesterday, the patient was extubated from mechanical ventilation. Currently she is on 3 L of nasal cannula. NG tube is noted. She continues on IV heparin, and TPN at 60 mL an hour. Antibiotics include daptomycin, Zosyn, and Eraxis. Blood cultures were positive for vancomycin-resistant enterococci. The patient is having gurgling respirations, and I give her Lasix 60 mg IV push today. I told the nurse that that doesn't work, the patient can be placed on BiPAP, and I gave her BiPAP settings. White count is 22.9, hemoglobin 7.8, hematocrit 20.9, and platelet count 480,000. Blood gases show pO2 71, pCO2 of 41, and a pH is 7.41. That was on 3 L. Sodium 147, potassium 4, chlorides 119, CO2 24, BUN 37, and creatinine 0.78. Magnesium is 2.7. Phosphorus is 2.4. Glucose is 165. Chest x-ray shows bilateral patchy infiltrates, which could be consistent with either infection and/or pulmonary edema. Left chest tube remains in place. Objective - Vital Signs Vital signs: Vital Signs Temp 98.4 F 07/15/23 08:00 Pulse 140 H 07/15/23 10:45 Resp 26 H 07/15/23 10:45 BP 154/80 07/15/23 10:45 Pulse Ox 91 L 07/15/23 10:45 FiO2 40 07/15/23 11:44 Intake & Output 07/14/23 07/15/23 07/15/23 18:59 06:59 18:59 Intake Total 972.285 8727.496 325 Output Total 930 1765 1685 Balance -26.726 -609.504 -1360 Weight 79.7 kg 80.5 kg Intake: IV 470 896 325 A line 30 36 15 Anidulafungin 100 mg In 100 Sodium Chloride 0.9% 100 ml @ 84 mls/hr IVPB DAILY [facility] Rx#:[id number] Anidulafungin 200 mg In 130 Sodium Chloride 0.9% 200 ml @ 84 mls/hr IVPB ONCE ONE Rx#:[id number] DAPTOmycin 500 mg In 100 Sodium Chloride 0.9% 50 ml @ 100 mls/hr IVPB Q24H [facility] Rx#:[id number] Piperacillin-Tazobactam 3 100 100 .375 gm In Sodium Chloride 0.9% 100 ml @ 25 mls/hr IVPB Q8H [facility] Rx#: [id number] Piperacillin-Tazobactam 3 200 .375 gm In Sodium Chloride 0.9% 100 ml @ 25 mls/hr IVPB Q8HR [facility] Rx# :[id number] Potassium Chloride 10 meq 0 In Water For Injection 1 100ml.bag @ 100 mls/hr IVPB Q1H [facility] Rx#: [id number] Sodium Acetate 30 meq 540 60 Potassium Acetate 20 meq Calcium Gluconate 1 gm In Amino Acid 5%-D15w 1,000 ml @ 60 mls/hr IV .BY DURATION [facility] Rx#: [id number] kvo 110 120 50 Intake, IV Titration 333.274 259.496 0 Amount Diltiazem 125 mg In 75.75 25.916 0 Sodium Chloride 0.9% 100 ml @ 7.5 MG/HR 7.5 mls/hr IV .[id number] [facility] Rx#: [id number] Heparin Sod,Pork in 0.45% 172.992 233.58 NaCl 25,000 unit In 0.45 % NaCl 1 250ml.bag @ 12 UNITS/KG/HR 9.792 mls/hr IV .Q24H [facility] Rx#: [id number] Norepinephrine 4 mg In 10.003 Sodium Chloride 0.9% 250 ml @ 0.03 MCG/KG/MIN 7. 727 mls/hr IV .Q24H [facility] Rx#:[id number] propofoL 1,000 mg In 74.529 Empty Bag 1 bag @ 15 MCG/ KG/MIN 6.084 mls/hr IV . [id number] [facility] Rx#:[id number] Lipid 100 Sodium Ferric Gluconat- 100 Sucrose 125 mg In Sodium Chloride 0.9% 100 ml @ 100 mls/hr IVPB DAILY [facility] Rx#:[id number] Output: Chest Tube Drainage 140 30 100 Chest Tube Left 140 30 100 Gastric Drainage 900 75 Drainage 40 80 30 Left Abdomen 15 20 Right Abdomen 25 60 30 Urine 376 019 2233 Other: Voiding Method Indwelling Catheter Indwelling Catheter ABP, PAP, CO, CI - Last Documented Arterial Blood Pressure 175/76 - Exam - Constitutional General appearance: Present: average body habitus, cooperative, no acute distress - EENT Eyes: Present: anicteric sclerae, EOMI, PERRLA, normal appearance ENT: Present: hearing grossly normal, normal oropharynx Ears: bilateral: normal - Neck Neck: Present: normal ROM. Absent: lymphadenopathy, rigidity, thyromegaly Carotids: negative: bruit present Thyroid: bilateral: normal size, negative: enlarged, nodule - Respiratory Respiratory: bilateral: CTA, negative: rales, rhonchi, wheezing - Cardiovascular Rhythm: regular Heart sounds: normal: S1, S2 Abnormal Heart Sounds: Absent: systolic murmur, diastolic murmur - Gastrointestinal General gastrointestinal: Present: normal bowel sounds, soft. Absent: distended, organomegaly, tenderness - Genitourinary Genitourinary Comment(s): deferred - Integumentary Integumentary: Present: normal turgor. Absent: jaundiced, rash, ulcer - Neurologic Neurologic: Present: CNII-XII intact. Absent: focal deficits - Musculoskeletal Musculoskeletal: Present: gait normal, strength equal bilaterally - Psychiatric Psychiatric: Present: A&O x's 3, appropriate affect, intact judgment & insight - Labs CBC & Chem 7: 07/15/23 05:45 07/15/23 05:45 Labs: Abnormal Lab Results - Last 24 Hours (Table) 07/14/23 07/14/23 07/14/23 Range/Units 04:15 12:48 17:34 WBC (3.8-10.6) k/uL RBC (3.80-5.40) m/uL Hgb (11.4-16.0) gm/dL Hct (34.0-46.0) % Plt Count (150-450) k/uL APTT (22.0-30.0) sec ABG pO2 (83-108) mmHg ABG HCO3 (21-25) mmol/L ABG Total CO2 (19-24) mmol/L Sodium (137-145) mmol/L Chloride (98-107) mmol/L BUN (7-17) mg/dL Glucose (74-99) mg/dL POC Glucose (mg/dL) 171 H 169 H (70-110) mg/dL Phosphorus (2.5-4.5) mg/dL Magnesium (1.6-2.3) mg/dL Iron 12 L (50-170) UG/DL TIBC 182 L (228-460) UG/DL % Saturation 6.59 L (12.00-45.00) Transferrin 130.0 L (204.0-354.0) mg/dL Ferritin 308.0 H (10.0-291.0) ng/mL 07/14/23 07/15/23 07/15/23 Range/Units 23:54 05:45 05:45 WBC (3.8-10.6) k/uL RBC (3.80-5.40) m/uL Hgb (11.4-16.0) gm/dL Hct (34.0-46.0) % Plt Count (150-450) k/uL APTT 74.2 H (22.0-30.0) sec ABG pO2 (83-108) mmHg ABG HCO3 (21-25) mmol/L ABG Total CO2 (19-24) mmol/L Sodium 147 H (137-145) mmol/L Chloride 119 H (98-107) mmol/L BUN 37 H (7-17) mg/dL Glucose 165 H (74-99) mg/dL POC Glucose (mg/dL) 189 H (70-110) mg/dL Phosphorus 2.4 L (2.5-4.5) mg/dL Magnesium 2.7 H (1.6-2.3) mg/dL Iron (50-170) UG/DL TIBC (228-460) UG/DL % Saturation (12.00-45.00) Transferrin (204.0-354.0) mg/dL Ferritin (10.0-291.0) ng/mL 07/15/23 07/15/23 07/15/23 Range/Units 05:45 06:08 08:38 WBC 22.9 H (3.8-10.6) k/uL RBC 2.82 L (3.80-5.40) m/uL Hgb 7.8 L (11.4-16.0) gm/dL Hct 24.9 L (34.0-46.0) % Plt Count 480 H (150-450) k/uL APTT (22.0-30.0) sec ABG pO2 71 L (83-108) mmHg ABG HCO3 26 H (21-25) mmol/L ABG Total CO2 27 H (19-24) mmol/L Sodium (137-145) mmol/L Chloride (98-107) mmol/L BUN (7-17) mg/dL Glucose (74-99) mg/dL POC Glucose (mg/dL) 184 H (70-110) mg/dL Phosphorus (2.5-4.5) mg/dL Magnesium (1.6-2.3) mg/dL Iron (50-170) UG/DL TIBC (228-460) UG/DL % Saturation (12.00-45.00) Transferrin (204.0-354.0) mg/dL Ferritin (10.0-291.0) ng/mL Microbiology - Last 24 Hours (Table) 07/12/23 16:00 Blood Culture - Preliminary Blood 07/11/23 00:22 Blood Culture Gram Stain - Final Blood Blood Culture - Final Enterococcus faecium VRE 07/11/23 18:08 Anaerobic Culture - Preliminary Abdomen 07/12/23 00:39 Gram Stain - Final Sputum Sputum Culture - Final Casandra albicans 07/11/23 18:08 Gram Stain - Final Abdomen Wound Culture - Final Casandra albicans Assessment and Plan Assessment: 1. Recurrent paraesophageal hernia - Patient is status post laparoscopic repair of paraesophageal hiatal hernia with absorbable mesh; POD #0 - Currently on IV Dilaudid 0.5-1 mg every 4-6 hours when necessary for pain control - Zosyn 3.375 g IV every 8 hours - We will monitor CBC, CRP and pro-calcitonin 2. Hypertension; losartan 50 mg daily 3. Hyperlipidemia 4. Restless legs syndrome; Requip 4 mg by mouth 3 times a day 5. Anxiety/depression; Paxil 40 mg daily; we will add Xanax 0.5 mg twice a day when necessary DVT prophylaxis; SCDs/subcu Lovenox CODE STATUS; full code
[2023-07-15 17:59] LABS: Glucose,Whole Blood 209 mg/dL (70-110)
[2023-07-15 19:15] LABS: African American GFR (CKD) >90 (>60 ml/min/1.73 sqM); Anion Gap 6 mmol/L; Blood Urea Nitrogen 40 mg/dL (7-17); Calcium 8.8 mg/dL (8.4-10.2); Carbon Dioxide 28 mmol/L (22-30); Chloride 113 mmol/L (98-107); Glucose 184 mg/dL (74-99); Non-African American GFR(CKD) 80 (>60 ml/min/1.73 sqM); Potassium 3.3 mmol/L (3.5-5.1); Sodium 147 mmol/L (137-145)
[2023-07-15] MEDS ORDERED: Potassium Replacement Protocol 1 EACH MISC MISCELLANE PRN (20:59)
[2023-07-15] MEDS: POTASSIUM CHLORIDE 20 MEQ in WATER FOR INJECTION 1 100ML.BAG IVPB SCH (23:41)
[2023-07-16] MEDS: HYDROmorphone 0.5 MG/0.5 ML SYRINGE IVP PRN ×2 (00:21→14:53)
[2023-07-16] MEDS: methylPREDNISolone SOD SUCCI 40 MG/ML 1 ML VIAL IV SCH ×3 (00:57→16:55)
[2023-07-16] MEDS: PIPERACILLIN-TAZOBACTAM 3.375 GM in SODIUM CHLORIDE 0.9% 100 ML IVPB SCH ×2 (00:58→10:03)
[2023-07-16] MEDS: DAPTOmycin 500 MG in SODIUM CHLORIDE 0.9% 50 ML IVPB SCH (01:07)
[2023-07-16] MEDS: POTASSIUM CHLORIDE 20 MEQ in WATER FOR INJECTION 1 100ML.BAG IVPB SCH (01:20)
[2023-07-16 01:44] LABS: Glucose,Whole Blood 216 mg/dL (70-110)
[2023-07-16 01:44] LABS: Glucose,Whole Blood 203 mg/dL (70-110)
[2023-07-16] MEDS: HEPARIN SOD,PORK IN 0.45% NACL 25,000 UNIT in 0.45% NACL 1 250ML.BAG IV SCH (01:50)
[2023-07-16] MEDS: INSULIN ASPART (NovoLOG) 100 UNIT/ML VIAL SQ SCH ×3 (01:50→13:02)
[2023-07-16] MEDS: HYDROmorphone 1 MG/ML 1 ML SYRINGE IVP PRN ×2 (03:21→12:10)
[2023-07-16 04:48] LABS: Basophils # (A) 0.1 k/uL (0-0.2); Basophils % (A) 0 %; Eosinophils % (A) 0 %; HCT 24.2 % (34.0-46.0); HGB 7.5 gm/dL (11.4-16.0); Hypochromasia Marked; Lymphocytes # (A) 0.6 k/uL (1.0-4.8); Lymphocytes % (A) 2 %; MCH 27.2 pg (25.0-35.0); MCHC 30.9 g/dL (31.0-37.0); Mean Platelet Volume 9.3; Monocytes # (A) 0.5 k/uL (0-1.0); Monocytes % (A) 2 %; Neutrophils # (A) 27.4 k/uL (1.3-7.7); Neutrophils % (A) 95 %; Platelet Count 448 k/uL (150-450); RBC 2.75 m/uL (3.80-5.40); WBC 28.7 k/uL (3.8-10.6)
[2023-07-16 05:45] LABS: ALT 33 U/L (4-34); AST 31 U/L (14-36); African American GFR (CKD) >90 (>60 ml/min/1.73 sqM); Alkaline Phosphatase 145 U/L (38-126); Anion Gap 7 mmol/L; Blood Urea Nitrogen 38 mg/dL (7-17); Calcium 8.6 mg/dL (8.4-10.2); Carbon Dioxide 27 mmol/L (22-30); Chloride 114 mmol/L (98-107); Glucose 197 mg/dL (74-99); Magnesium 2.2 mg/dL (1.6-2.3); Non-African American GFR(CKD) 83 (>60 ml/min/1.73 sqM); Phosphorus 2.9 mg/dL (2.5-4.5); Potassium 3.9 mmol/L (3.5-5.1); Sodium 148 mmol/L (137-145); Total Bilirubin 0.6 mg/dL (0.2-1.3); Total Protein 4.7 g/dL (6.3-8.2)
[2023-07-16] MEDS: POTASSIUM CHLORIDE 10 MEQ in WATER FOR INJECTION 1 100ML.BAG IVPB SCH ×2 (06:19→10:03)
[2023-07-16 06:52] LABS: Glucose,Whole Blood 218 mg/dL (70-110)
[2023-07-16 06:54] LABS: Glucose,Whole Blood 215 mg/dL (70-110)
--- NOTE | 2023-07-16 07:30 | XR ---
EXAMINATION TYPE: XR chest 1V portable DATE OF EXAM: 07/16/2023 5:16 AM CLINICAL INDICATION:Female, 82 years old with history of Left pleural effusion; COMPARISON: Chest radiograph from one day prior. TECHNIQUE: XR chest 1V portable Frontal view of the chest. FINDINGS: Lungs/Pleura: Blunting of left costophrenic angle. There is no evidence of pleural effusion, focal co nsolidation, or pneumothorax. Pulmonary vascularity: Unremarkable. Heart/mediastinum: Cardiomediastinal silhouette is unremarkable. Musculoskeletal: No acute osseous pathology. Other findings: None Lines/Tubes: Nasogastric tube with its distal tip and side-port projecting under the diaphragm. Removal of thoracotomy tube. IMPRESSION: 1. Interval removal of thoracotomy tube without evidence of cysts pneumothorax. There remains a left pleural effusion. 2. Cardiomegaly with pulmonary vascular congestion.
[2023-07-16] MEDS: BUDESONIDE 1 MG/2 ML NEBU INHALATION SCH (07:52)
[2023-07-16] MEDS: IPRATROPIUM-ALBUTEROL 3 ML NEB INHALATION SCH ×3 (07:52→15:36)
--- NOTE | 2023-07-16 07:53 | PN ---
PROGRESS NOTE SUBJECTIVE: Mrs. Robert is going in and out of atrial fibrillation. This morning, she is in sinus rhythm with PACs. She is on a BiPAP at this time. OBJECTIVE: VITAL SIGNS: Blood pressure is good. HEART: S1 and S2 are heard normally, short systolic murmur. LUNGS: Reveal diminished air entry. ABDOMEN: Deferred. Rest of physical examination is unchanged. This lady had a repair of a gastric perforation in 2 areas. She has history of smoking and also atrial fib seems to be persistent. We will continue 5 mg Cardizem drip per hour and also use IV push beta bhanu if necessary. Discussed my thoughts in detail with the patient. Thank you very much for the consult. MMODL / IJN: [id number] /
[2023-07-16] MEDS: SODIUM FERRIC GLUCONAT-SUCROSE 125 MG in SODIUM CHLORIDE 0.9% 100 ML IVPB SCH (09:33)
[2023-07-16] MEDS: ANIDULAFUNGIN 100 MG in SODIUM CHLORIDE 0.9% 100 ML IVPB SCH (10:02)
[2023-07-16] MEDS: LIDOCAINE 4% PATCH TOPICAL SCH ×2 (10:04→10:40)
[2023-07-16] MEDS: PANTOPRAZOLE 40 MG/10 ML VIAL IVP SCH (10:04)
--- NOTE | 2023-07-16 10:18 | P.PN ---
Subjective Patient is seen for follow-up for acute kidney injury and volume overload. Status post IV Lasix yesterday for worsening respiratory status. Currently maintained on BiPAP. Patient is comfortable. Good urine output. Serum creatinine at 0.6. Sodium at 148 today. I discussed with pharmacy and it appears that there is no sodium in the new TPN however this will not be started until 5 PM. I have asked the pharmacist to start the new TPN by at least known today. Objective - Vital Signs Vital signs: Vital Signs Temp 97.7 F 07/16/23 08:00 Pulse 113 H 07/16/23 09:30 Resp 35 H 07/16/23 09:30 BP 136/70 07/16/23 09:30 Pulse Ox 90 L 07/16/23 09:30 FiO2 40 07/16/23 08:00 Intake & Output 07/15/23 07/16/23 07/16/23 18:59 06:59 18:59 Intake Total 417.5 841.824 26 Output Total 5025 1065 130 Balance -4607.5 -223.176 -104 Intake: IV 416 606 26 A line 36 36 6 Anidulafungin 100 mg In 100 Sodium Chloride 0.9% 100 ml @ 84 mls/hr IVPB DAILY [facility] Rx#:[id number] DAPTOmycin 500 mg In 50 Sodium Chloride 0.9% 50 ml @ 100 mls/hr IVPB Q24H [facility] Rx#:[id number] Piperacillin-Tazobactam 3 100 100 .375 gm In Sodium Chloride 0.9% 100 ml @ 25 mls/hr IVPB Q8H [facility] Rx#: [id number] Potassium Chloride 10 meq 100 In Water For Injection 1 100ml.bag @ 100 mls/hr IVPB Q1H [facility] Rx#: [id number] Potassium Chloride 20 meq 200 In Water For Injection 1 100ml.bag @ 50 mls/hr IVPB Q2H [facility] Rx#: [id number] Sodium Acetate 30 meq 60 Potassium Acetate 20 meq Calcium Gluconate 1 gm In Amino Acid 5%-D15w 1,000 ml @ 60 mls/hr IV .BY DURATION [facility] Rx#: [id number] kvo 120 120 20 Intake, IV Titration 1.5 235.824 Amount Diltiazem 125 mg In 1.5 Sodium Chloride 0.9% 100 ml @ 7.5 MG/HR 7.5 mls/hr IV .[id number] [facility] Rx#: [id number] Heparin Sod,Pork in 0.45% 235.824 NaCl 25,000 unit In 0.45 % NaCl 1 250ml.bag @ 12 UNITS/KG/HR 9.792 mls/hr IV .Q24H [facility] Rx#: [id number] Output: Chest Tube Drainage 130 Chest Tube Left 130 Gastric Drainage 75 Drainage 40 30 Left Abdomen 20 Right Abdomen 40 10 Urine 4780 1035 130 Other: Voiding Method Indwelling Catheter Indwelling Catheter Indwelling Catheter ABP, PAP, CO, CI - Last Documented Arterial Blood Pressure 100/76 - Exam Patient is awake, comfortable. On BiPAP. No acute distress Examination of the heart S1 and S2 Examination of the lungs bilateral breath sounds are heard Abdomen is dressed Examination of lower extremities shows edema 1+ bilaterally. - Labs CBC & Chem 7: 07/16/23 04:30 07/16/23 04:30 Labs: Abnormal Lab Results - Last 24 Hours (Table) 07/15/23 07/15/23 07/15/23 Range/Units 12:11 17:58 18:17 WBC (3.8-10.6) k/uL RBC (3.80-5.40) m/uL Hgb (11.4-16.0) gm/dL Hct (34.0-46.0) % MCHC (31.0-37.0) g/dL Neutrophils # (1.3-7.7) k/uL Lymphocytes # (1.0-4.8) k/uL APTT (22.0-30.0) sec Sodium 147 H (137-145) mmol/L Potassium 3.3 L (3.5-5.1) mmol/L Chloride 113 H (98-107) mmol/L BUN 40 H (7-17) mg/dL Glucose 184 H (74-99) mg/dL POC Glucose (mg/dL) 228 H 209 H (70-110) mg/dL Alkaline Phosphatase (38-126) U/L Total Protein (6.3-8.2) g/dL Albumin (3.5-5.0) g/dL 07/16/23 07/16/23 07/16/23 Range/Units 01:41 01:42 04:30 WBC 28.7 H (3.8-10.6) k/uL RBC 2.75 L (3.80-5.40) m/uL Hgb 7.5 L (11.4-16.0) gm/dL Hct 24.2 L (34.0-46.0) % MCHC 30.9 L (31.0-37.0) g/dL Neutrophils # 27.4 H (1.3-7.7) k/uL Lymphocytes # 0.6 L (1.0-4.8) k/uL APTT (22.0-30.0) sec Sodium (137-145) mmol/L Potassium (3.5-5.1) mmol/L Chloride (98-107) mmol/L BUN (7-17) mg/dL Glucose (74-99) mg/dL POC Glucose (mg/dL) 203 H 216 H (70-110) mg/dL Alkaline Phosphatase (38-126) U/L Total Protein (6.3-8.2) g/dL Albumin (3.5-5.0) g/dL 07/16/23 07/16/23 07/16/23 Range/Units 04:30 04:30 06:40 WBC (3.8-10.6) k/uL RBC (3.80-5.40) m/uL Hgb (11.4-16.0) gm/dL Hct (34.0-46.0) % MCHC (31.0-37.0) g/dL Neutrophils # (1.3-7.7) k/uL Lymphocytes # (1.0-4.8) k/uL APTT 78.4 H (22.0-30.0) sec Sodium 148 H (137-145) mmol/L Potassium (3.5-5.1) mmol/L Chloride 114 H (98-107) mmol/L BUN 38 H (7-17) mg/dL Glucose 197 H (74-99) mg/dL POC Glucose (mg/dL) 218 H (70-110) mg/dL Alkaline Phosphatase 145 H (38-126) U/L Total Protein 4.7 L (6.3-8.2) g/dL Albumin 2.0 L (3.5-5.0) g/dL 12/23/23 Range/Units 06:53 WBC (3.8-10.6) k/uL RBC (3.80-5.40) m/uL Hgb (11.4-16.0) gm/dL Hct (34.0-46.0) % MCHC (31.0-37.0) g/dL Neutrophils # (1.3-7.7) k/uL Lymphocytes # (1.0-4.8) k/uL APTT (22.0-30.0) sec Sodium (137-145) mmol/L Potassium (3.5-5.1) mmol/L Chloride (98-107) mmol/L BUN (7-17) mg/dL Glucose (74-99) mg/dL POC Glucose (mg/dL) 215 H (70-110) mg/dL Alkaline Phosphatase (38-126) U/L Total Protein (6.3-8.2) g/dL Albumin (3.5-5.0) g/dL Microbiology - Last 24 Hours (Table) 07/12/23 16:00 Blood Culture - Preliminary Blood Assessment and Plan Assessment: 1. Acute kidney injury, ATN, currently nonoliguric. Improved. Patient is m aintained on TPN which we can continue. UA on 07/08/2023 showed 1+ protein and trace blood. This appears to be a [place] specimen. No obstruction noted on CT of the abdomen on 07/11/2023. 2. 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 3. Volume overload with significant positive balance since admission. Status post IV Lasix which we will continue 4. Left pleural effusion status post chest tube placement 5. A. fib with RVR maintained on Cardizem drip 6. Septic shock due to gastric perforation and abdominal abscess. Blood cultures were growing group D enterococcus and abdominal fluid is growing Casandra albicans. 7. Anemia rule with severe iron deficiency 8. Hypernatremia in a patient on TPN. Sodium had been adjusted in the TPN. Plan: Repeat IV Lasix Start new TPN with no sodium by known today Continue antibiotics and repeat labs in a.m.
[2023-07-16] MEDS ORDERED: FUROSEMIDE 10 MG/ML 10 ML VIAL IV STA (10:51)
--- NOTE | 2023-07-16 10:56 | P.PN ---
Subjective Progress Note Date: 07/16/23 Principal diagnosis: Respiratory failure. This is an 82-year-old female with history of multiple medical problems including hypertension, CVA, dyslipidemia, iron deficiency anemia, depression and generalized anxiety disorder, patient was also noted to have recurrent paraesophageal hiatal hernia. On 07/01/2023, patient was admitted by Dr. Kendrick for elective laparoscopic repair of paraesophageal hernia with absorbable mesh. Procedure was done on 07/01/2023, and the patient was managed medically by internal medicine after the surgery. Since her admission till now, patient has been seen by many consultants including internal medicine, cardiology, general surgery, neurology, infectious disease, all along the patient was noted to have a small left pleural effusion, which was noted to be present 2 days after her surgery, and this pleural effusion was not present back in December of 2022 based on an old chest x-ray clearly this pleural effusion is considered relatively new and developed shortly after her surgery. Echocardiogram on this patient showed good ejection fraction, she had mild pulmonary hypertension, and she had moderate tricuspid regurgitation and sclerotic aortic valve was noted but no stenosis. On this admission the patient developed new onset paroxysmal atrial fibrillation, hence the patient was given metoprolol, and she was also placed on eliquis. Amiodarone was added. And intermittently the patient has been receiving Lasix for presumptive congestive heart failure. Ultrasound of the chest on 07/09 showed moderate left pleural effusion and small right pleural effusion, left side is amenable for thoracentesis. However the patient has been on eliquis all along, and I am recommending that we hold the eliquis today, and possibly consider thoracentesis in the next 24 hours. In the meantime patient will be given a dose of diuretics, I believe most likely the fluid is cardiogenic in nature unless proven otherwise. Again this fluid was not present prior to her admission. Not to mention during my examination the patient, she had diffuse rhonchi and wheezes bilaterally, she does have a nasogastric tube in place, and she definitely needs to be placed on bronchodilators to optimize her pulmonary status. Patient seems to have large nasogastric output today. Chest x-ray this morning showed congestive changes with left-sided pleural effusion. Possibility of congestive heart failure is very likely considering the chest x-ray appearan ce. BNP level today is almost 5000. Progress note dated 07/11/2023. 82-year-old female seen yesterday in consultation by my partner. The patient was admitted back on July 01, for an elective repair of a hiatal hernia. The patient's surgery took place on July 01. The patient was brought to the intensive care unit, on July 10, for atrial fibrillation with RVR, and low blood pressure. The patient is seen today in room 259. The patient's currently on Zosyn. The patient's on a liter high flow oxygen, and has an NG tube in place. The patient's getting 0.9 at KVO. A computed tomography scan of the abdomen and pelvis, apparently has revealed a fluid collection, in the abdomen. The surgery is considering exploratory laparotomy. In addition, because of new onset atrial fibrillation, the patient will have Dopplers of lower extremities. White count 13, hemoglobin 11, platelet count normal. D-dimer was 9. Blood gases show pO2 of 69, pCO2 45, and a pH of 7.4. This was on 35% oxygen. Sodium 141, potassium 3.8, chlorides 108, CO2 26, BUN 20, creatinine 0.8. Troponins were 0.096 and 0.144. Albumin was 2.2. Blood cultures are negative. Chest x- ray reveals a left lower lobe infiltrate with a left pleural effusion, and a possible left-sided pneumothorax. CT of the abdomen shows a interval development of a fluid collection, posterior to the stomach, measuring 4 cm x 9.4 cm. Progress note dated 07/12/2023. 82-year-old female seen in consultation 2 days ago by my partner. The patient was seen today in the intensive care unit. The patient had surgery yesterday. A computed tomography scan revealed an abnormality, posterior to the stomach. The patient is postop day #1, status post exploratory laparotomy, repair of gastric perforation, drainage of abdominal abscess, and lysis of adhesions. The surgery was done by Dr. La. The patient came back to the intensive care unit, on the mechanical ventilator. She remains on the mechanical ventilator. She is on the volume assist control, rate 20, tidal volume 400, FiO2 50%, and PEEP of 5. Blood gases show pO2 111, pCO2 of 40, and a pH is 7.37. The patient's getting lactated Ringer's at 75 mL an hour, propofol at 45 mcg/kg/m, norepinephrine, which is been weaned off, and a Cardizem drip of 5 mg an hour. The chest tube was placed by cardiothoracic surgery on the left side yesterday. The patient currently is on Zosyn and daptomycin. Blood cultures are apparently positive for possible streptococci, and vancomycin-resistant enterococci. White count 19.2, hemoglobin 9.8, hematocrit 30.7, and platelet count 488,000. Sodium 142, potassium 3.9, chlorides 113, CO2 22, BUN 35, creatinine 1.20. Magnesium is 2.2. Chest x-ray shows relatively clear right lung, properly positioned endotracheal tube, a left-sided chest tube, and some volume off in the left chest, with a residual left-sided pleural effusion. Progress note dated 07/13/2023. 82-year-old female seen in consultation 3 days ago, by my partner. The patient is currently in the intensive care unit, and continues on the mechanical ve ntilator. The patient is postop day #1, status post repair of the gastric perforation, drainage of abdominal abscess, exploratory laparotomy, and lysis of adhesions. The patient remains on mechanical ventilator, with volume assist control as a mode, rate 20, tidal volume 400, FiO2 40%, PEEP of 5. Blood gases show a PaO2 of 135, pCO2 45, and pH is 7.34. Blood gases were done on 50% FiO2. The patient is on Cardizem is 7.5 mg an hour, norepinephrine at about 5 mcg/m, and saline at KVO. The patient's also getting TPN at 30 mL an hour. The patient continues on Zosyn and daptomycin. Propofol is running at 40 mcg/kg/m. White count 18.4, hemoglobin 8.5, hematocrit 27.9, and platelet count 507,000. Sodium 144, potassium 4, chlorides 116, CO2 23, BUN 36, and creatinine 1.20. Microbiology is positive for group D enterococcus in the blood. Chest x-ray shows a left thoracotomy tube, with a small left-sided effusion. Doppler of the left upper extremity, was negative for DVT. Progress note dated 07/14/2023. 82-year-old female, seen today in room 259. She remains on mechanical ventil ator. She is postop day #2, status post repair of gastric perforation, drainage of abdominal abscess, exploratory laparotomy, and lysis of adhesions. Currently, the patient is on the volume assist control, rate 20, tidal volume 400, FiO2 40%, blood gases show pO2 113, pCO2 42, and pH is 7.39. She still has a left chest tube in place. The patient's on TPN at 60 mL an hour, propofol at 50 mcg/kg/m, and IV heparin. The patient also continues on daptomycin, Zosyn, and Eraxis. The patient will have a daily interruption of sedation, and a spontaneous breathing trial today. White count 16.9, in room 7.4, hematocrit 24.8, platelet count 475,000. Sodium 147, potassium 3.7, chlorides 118, CO2 22, BUN 37, and creatinine 0.85. Blood cultures on the of positive for group D enterococcus. Chest x-ray shows a small to moderate left-sided pleural effusion, and a left-sided chest tube. Progress note dated 07/15/2023. 82-year-old female seen today in room 259. The patient is postop day #3, status post repair of the gastric perforation, drainage of abdominal abscess, exploratory laparotomy, and lysis of adhesions. Yesterday, the patient was extubated from mechanical ventilation. Currently she is on 3 L of nasal cannula. NG tube is noted. She continues on IV heparin, and TPN at 60 mL an hour. Antibiotics include daptomycin, Zosyn, and Eraxis. Blood cultures were positive for vancomycin-resistant enterococci. The patient is having gurgling respirations, and I give her Lasix 60 mg IV push today. I told the nurse that that doesn't work, the patient can be placed on BiPAP, and I gave her BiPAP settings. White count is 22.9, hemoglobin 7.8, hematocrit 20.9, and platelet count 480,000. Blood gases show pO2 71, pCO2 of 41, and a pH is 7.41. That was on 3 L. Sodium 147, potassium 4, chlorides 119, CO2 24, BUN 37, and creatinine 0.78. Magnesium is 2.7. Phosphorus is 2.4. Glucose is 165. Chest x-ray shows bilateral patchy infiltrates, which could be consistent with either infection and/or pulmonary edema. Left chest tube remains in place. Progress note dated 07/16/2023. 82-year-old female seen today in room 259. The patient is postop day #4, status post repair of gastric perforation, drainage of intra-abdominal abscess, exploratory laparotomy, and lysis of adhesions. The patient was extubated from mechanical ventilation on July 14. Currently, the patient is on BiPAP, with settings of 10/5, and 40%. She's getting heparin via weightbase protocol, TPN at 50 mL an hour, Cardizem drip at 5 mg an hour, and saline at 10 mL an hour. Her left-sided chest tube came out yesterday, July 15. Today, we will attempt to try the patient on high flow nasal cannula. Current white count is 28.7, hemoglobin 7.5, hematocrit 24.2, and platelet count 448,000. Sodium 148, potassium 3.9, chlorides 114, CO2 27, BUN 38, creatinine 0.68. Albumin is 2. B lood cultures from July 11 are positive for vancomycin-resistant enterococci. Chest x-ray shows interval removal of thoracotomy tube without evidence of pneumothorax. There is cardiomegaly, with pulmonary vascular congestion. Objective - Vital Signs Vital signs: Vital Signs Temp 97.7 F 07/16/23 08:00 Pulse 89 07/16/23 10:30 Resp 34 H 07/16/23 10:30 BP 130/63 07/16/23 10:30 Pulse Ox 92 L 07/16/23 10:30 FiO2 40 07/16/23 08:00 Intake & Output 07/15/23 07/16/23 07/16/23 18:59 06:59 18:59 Intake Total 417.5 841.824 26 Output Total 5025 1065 130 Balance -4607.5 -223.176 -104 Intake: IV 416 606 26 A line 36 36 6 Anidulafungin 100 mg In 100 Sodium Chloride 0.9% 100 ml @ 84 mls/hr IVPB DAILY [facility] Rx#:[id number] DAPTOmycin 500 mg In 50 Sodium Chloride 0.9% 50 ml @ 100 mls/hr IVPB Q24H [facility] Rx#:[id number] Piperacillin-Tazobactam 3 100 100 .375 gm In Sodium Chloride 0.9% 100 ml @ 25 mls/hr IVPB Q8H [facility] Rx#: [id number] Potassium Chloride 10 meq 100 In Water For Injection 1 100ml.bag @ 100 mls/hr IVPB Q1H [facility] Rx#: [id number] Potassium Chloride 20 meq 200 In Water For Injection 1 100ml.bag @ 50 mls/hr IVPB Q2H [facility] Rx#: [id number] Sodium Acetate 30 meq 60 Potassium Acetate 20 meq Calcium Gluconate 1 gm In Amino Acid 5%-D15w 1,000 ml @ 60 mls/hr IV .BY DURATION [facility] Rx#: [id number] kvo 120 120 20 Intake, IV Titration 1.5 235.824 Amount Diltiazem 125 mg In 1.5 Sodium Chloride 0.9% 100 ml @ 7.5 MG/HR 7.5 mls/hr IV .[id number] [facility] Rx#: [id number] Heparin Sod,Pork in 0.45% 235.824 NaCl 25,000 unit In 0.45 % NaCl 1 250ml.bag @ 12 UNITS/KG/HR 9.792 mls/hr IV .Q24H [facility] Rx#: [id number] Output: Chest Tube Drainage 130 Chest Tube Left 130 Gastric Drainage 75 Drainage 40 30 Left Abdomen 20 Right Abdomen 40 10 Urine 4780 1035 130 Other: Voiding Method Indwelling Catheter Indwelling Catheter Indwelling Catheter ABP, PAP, CO, CI - Last Documented Arterial Blood Pressure 162/57 - Exam No acute distress, lethargic, but arousable, with BiPAP mask in place. NG tube is noted. HEENT examination is grossly unremarkable. Mucous membranes are moist. No oral lesions. NG tube in place. Neck supple. Full range of motion. No adenopathy thyromegaly or neck vein distention. Cardiovascular examination reveals regular rhythm rate. S1-S2 normal. No S3 or S4. No discernible murmur noted. Heart sounds are distant. Heart rate 99 bpm. Lungs reveal scattered rhonchi. No wheezes or crackles. Breath sounds equal. Saturations 92 %. . Abdomen soft, without bowel sounds. Extremities are intact. No cyanosis clubbing or edema. Skin is without rash or lesion. Neurologic examination reveals the patient to be somnolent, but arousable. - Labs CBC & Chem 7: 07/16/23 04:30 07/16/23 04:30 Labs: Abnormal Lab Results - Last 24 Hours (Table) 07/15/23 07/15/23 07/15/23 Range/Units 12:11 17:58 18:17 WBC (3.8-10.6) k/uL RBC (3.80-5.40) m/uL Hgb (11.4-16.0) gm/dL Hct (34.0-46.0) % MCHC (31.0-37.0) g/dL Neutrophils # (1.3-7.7) k/uL Lymphocytes # (1.0-4.8) k/uL APTT (22.0-30.0) sec Sodium 147 H (137-145) mmol/L Potassium 3.3 L (3.5-5.1) mmol/L Chloride 113 H (98-107) mmol/L BUN 40 H (7-17) mg/dL Glucose 184 H (74-99) mg/dL POC Glucose (mg/dL) 228 H 209 H (70-110) mg/dL Alkaline Phosphatase (38-126) U/L Total Protein (6.3-8.2) g/dL Albumin (3.5-5.0) g/dL 07/16/23 07/16/23 07/16/23 Range/Units 01:41 01:42 04:30 WBC 28.7 H (3.8-10.6) k/uL RBC 2.75 L (3.80-5.40) m/uL Hgb 7.5 L (11.4-16.0) gm/dL Hct 24.2 L (34.0-46.0) % MCHC 30.9 L (31.0-37.0) g/dL Neutrophils # 27.4 H (1.3-7.7) k/uL Lymphocytes # 0.6 L (1.0-4.8) k/uL APTT (22.0-30.0) sec Sodium (137-145) mmol/L Potassium (3.5-5.1) mmol/L Chloride (98-107) mmol/L BUN (7-17) mg/dL Glucose (74-99) mg/dL POC Glucose (mg/dL) 203 H 216 H (70-110) mg/dL Alkaline Phosphatase (38-126) U/L Total Protein (6.3-8.2) g/dL Albumin (3.5-5.0) g/dL 07/16/23 07/16/2307/16/23 Range/Units 04:30 04:30 06:40 WBC (3.8-10.6) k/uL RBC (3.80-5.40) m/uL Hgb (11.4-16.0) gm/dL Hct (34.0-46.0) % MCHC (31.0-37.0) g/dL Neutrophils # (1.3-7.7) k/uL Lymphocytes # (1.0-4.8) k/uL APTT 78.4 H (22.0-30.0) sec Sodium 148 H (137-145) mmol/L Potassium (3.5-5.1) mmol/L Chloride 114 H (98-107) mmol/L BUN 38 H (7-17) mg/dL Glucose 197 H (74-99) mg/dL POC Glucose (mg/dL) 218 H (70-110) mg/dL Alkaline Phosphatase 145 H (38-126) U/L Total Protein 4.7 L (6.3-8.2) g/dL Albumin 2.0 L (3.5-5.0) g/dL 07/16/23 Range/Units 06:53 WBC (3.8-10.6) k/uL RBC (3.80-5.40) m/uL Hgb (11.4-16.0) gm/dL Hct (34.0-46.0) % MCHC (31.0-37.0) g/dL Neutrophils # (1.3-7.7) k/uL Lymphocytes # (1.0-4.8) k/uL APTT (22.0-30.0) sec Sodium (137-145) mmol/L Potassium (3.5-5.1) mmol/L Chloride (98-107) mmol/L BUN (7-17) mg/dL Glucose (74-99) mg/dL POC Glucose (mg/dL) 215 H (70-110) mg/dL Alkaline Phosphatase (38-126) U/L Total Protein (6.3-8.2) g/dL Albumin (3.5-5.0) g/dL Microbiology - Last 24 Hours (Table) 07/12/23 16:00 Blood Culture - Preliminary Blood Assessment and Plan Assessment: Postop day #15, status post repair of her recurrent paraesophageal hernia. Postop day #5, status post exploratory laparotomy, repair of gastric perforation, drainage of abdominal abscess, and lysis of adhesions. Status post left-sided chest tube placement, 07/11/2023, removed 07/15/2023. COPD, acutely active. Mental status changes, secondary to metabolic encephalopathy. Acute kidney injury. Benign essential hypertension. Paroxysmal atrial fibrillation, with rapid ventricular response. Generalized anxiety disorder. GERD with esophagitis. Restless leg syndrome. Chronic back pain. Previous tobacco use. Plan: Plan dated 07/11/2023. The patient is acutely. She remains in the intensive care unit. The patient's on 8 L of oxygen, high flow. She does have a left-sided pleural effusion, and may have a left-sided pneumothorax. I did speak to the surgeon, was planning on doing exploratory laparotomy, evaluated the fluid collection, posterior to the stomach. The patient will likely come back to the intensive care unit, on the mechanical ventilator. Additional recommendations and suggestions are forthcoming. Labs, x-rays, medications are reviewed. X-rays are negative. She remains on Zosyn. Follow make recommendations along the way. Prognosis is guarded. Plan dated 07/12/2023. The patient went to the operating room yesterday, for a fluid collection behind the stomach. The patient was discovered to have a perforated stomach, and abscess, that was drained, and lysis of adhesions. The patient came back to the ICU on the ventilator. She remains on the ventilator at this time. She continues on propofol, and Cardizem 5 mg an hour. She has a left chest tube was placed by cardiothoracic surgery for left pleural effusion and possible left- sided pneumothorax. The patient's on Zosyn and daptomycin, for vancomycin- resistant enterococci, and possible streptococci. Additional recommendations and suggestions are forthcoming. Prognosis is guarded. We will continue to follow the patient, make recommendations along the way. Plan dated 07/13/2023. The patient is critically ill, in the intensive care unit, on the mechanical breathing machine. She seen today in room 259. We will attempt a daily interruption of sedation, although I'm positive, the patient is not yet ready for weaning and extubation. She continues on propofol, Cardizem, and norepinephrine. She is now getting TPN at 30 mL an hour. Blood gases are reasonable. The FiO2 was reduced from 50%, down to 40%. Labs, x-rays, and medications are reviewed. We will continue to follow the patient, and make recommendations along the way. The patient's overall prognosis remains very guarded. Plan dated 07/14/2023. The patient will have a daily interruption of sedation, and a spontaneous breathing trial today, on pressure support of 5, and CPAP of 5. Labs, x-rays, medications are reviewed. The patient may be ready for extubation. I will ask for a full set a weaning parameters, and a cuff leak test, after 20-30 minutes on pressure support. The patient continues on TPN at 60 mL an hour. The patient continues on IV heparin. The patient also continues on Eraxis, d aptomycin, and Zosyn. We will continue to follow the patient, and make recommendations along the way. Prognosis is guarded. Plan dated 07/15/2023. The patient's overall respiratory status is somewhat tenuous. She gets Lasix 60 mg IV push. I gave orders for BiPAP, with settings, should that not help the situation. The patient was extubated yesterday. NG tube remains in place. Labs, x-rays, and medications are reviewed. She continues on IV heparin, and TPN at 60 mL an hour. She continues on daptomycin, Zosyn, and Eraxis. Additional recommendations and suggestions are forthcoming. The patient's overall prognosis remains poor. I'm hopeful that we can keep the patient off of mechanical ventilation,, there is always a chance, that she may get back on the ventilator. Plan dated 07/16/2023. The patient will have a trial of high flow nasal cannula. She may or may not be able to tolerate it. She may need to be placed back on BiPAP. She continues on IV heparin, TPN, and a Cardizem drip at 5 mg an hour. The chest tube on the left side came out yesterday. Labs, x-rays, and medications are reviewed. The patient's overall prognosis remains very guarded. We will continue to follow the patient, make recommendations along the way. The patient remains on daptomycin, Zosyn, and he will Eraxis. Time with Patient: Greater than 30
[2023-07-16] MEDS ORDERED: DEXTROSE 5% IN WATER 1,000 ML IV SCH (11:00)
--- NOTE | 2023-07-16 11:28 | P.PN ---
Subjective Progress Note Date: 07/16/23 Patient recently extubated. On BiPAP. Abdominal exam is soft. The wound is intact. Objective - Vital Signs Vital signs: Vital Signs Temp 97.7 F 07/16/23 08:00 Pulse 114 H 07/16/23 11:00 Resp 36 H 07/16/23 11:00 BP 131/67 07/16/23 11:00 Pulse Ox 92 L 07/16/23 11:00 FiO2 40 07/16/23 08:00 Intake & Output 07/15/23 07/16/23 07/16/23 18:59 06:59 18:59 Intake Total 417.5 841.824 352 Output Total 5025 1065 230 Balance -4607.5 -223.176 122 Intake: IV 416 606 352 A line 36 36 12 Anidulafungin 100 mg In 100 Sodium Chloride 0.9% 100 ml @ 84 mls/hr IVPB DAILY [facility] Rx#:[id number] DAPTOmycin 500 mg In 50 Sodium Chloride 0.9% 50 ml @ 100 mls/hr IVPB Q24H [facility] Rx#:[id number] Piperacillin-Tazobactam 3 100 100 100 .375 gm In Sodium Chloride 0.9% 100 ml @ 25 mls/hr IVPB Q8H [facility] Rx#: [id number] Potassium Chloride 10 meq 100 100 In Water For Injection 1 100ml.bag @ 100 mls/hr IVPB Q1H [facility] Rx#: [id number] Potassium Chloride 20 meq 200 In Water For Injection 1 100ml.bag @ 50 mls/hr IVPB Q2H [facility] Rx#: [id number] Sodium Acetate 30 meq 60 Potassium Acetate 20 meq Calcium Gluconate 1 gm In Amino Acid 5%-D15w 1,000 ml @ 60 mls/hr IV .BY DURATION [facility] Rx#: [id number] Sodium Ferric Gluconat- 100 Sucrose 125 mg In Sodium Chloride 0.9% 100 ml @ 100 mls/hr IVPB DAILY [facility] Rx#:[id number] kvo 120 120 40 Intake, IV Titration 1.5 235.824 Amount Diltiazem 125 mg In 1.5 Sodium Chloride 0.9% 100 ml @ 7.5 MG/HR 7.5 mls/hr IV .[id number] [facility] Rx#: [id number] Heparin Sod,Pork in 0.45% 235.824 NaCl 25,000 unit In 0.45 % NaCl 1 250ml.bag @ 12 UNITS/KG/HR 9.792 mls/hr IV .Q24H [facility] Rx#: [id number] Output: Chest Tube Drainage 130 Chest Tube Left 130 Gastric Drainage 75 Drainage 40 30 Left Abdomen 20 Right Abdomen 40 10 Urine 4780 1035 230 Other: Voiding Method Indwelling Catheter Indwelling Catheter Indwelling Catheter ABP, PAP, CO, CI - Last Documented Arterial Blood Pressure 145/56 - Exam NG tube in place. Patient is alert and oriented. Abdomen is soft. Incision is intact. - Labs CBC & Chem 7: 07/16/23 04:30 07/16/23 04:30 Labs: Abnormal Lab Results - Last 24 Hours (Table) 07/15/23 07/15/23 07/15/23 Range/Units 12:11 17:58 18:17 WBC (3.8-10.6) k/uL RBC (3.80-5.40) m/uL Hgb (11.4-16.0) gm/dL Hct (34.0-46.0) % MCHC (31.0-37.0) g/dL Neutrophils # (1.3-7.7) k/uL Lymphocytes # (1.0-4.8) k/uL APTT (22.0-30.0) sec Sodium 147 H (137-145) mmol/L Potassium 3.3 L (3.5-5.1) mmol/L Chloride 113 H (98-107) mmol/L BUN 40 H (7-17) mg/dL Glucose 184 H (74-99) mg/dL POC Glucose (mg/dL) 228 H 209 H (70-110) mg/dL Alkaline Phosphatase (38-126) U/L Total Protein (6.3-8.2) g/dL Albumin (3.5-5.0) g/dL 07/16/23 07/16/23 07/16/23 Range/Units 01:41 01:42 04:30 WBC 28.7 H (3.8-10.6) k/uL RBC 2.75 L (3.80-5.40) m/uL Hgb 7.5 L (11.4-16.0) gm/dL Hct 24.2 L (34.0-46.0) % MCHC 30.9 L (31.0-37.0) g/dL Neutrophils # 27.4 H (1.3-7.7) k/uL Lymphocytes # 0.6 L (1.0-4.8) k/uL APTT (22.0-30.0) sec Sodium (137-145) mmol/L Potassium (3.5-5.1) mmol/L Chloride (98-107) mmol/L BUN (7-17) mg/dL Glucose (74-99) mg/dL POC Glucose (mg/dL) 203 H 216 H (70-110) mg/dL Alkaline Phosphatase (38-126) U/L Total Protein (6.3-8.2) g/dL Albumin (3.5-5.0) g/dL 07/16/23 07/16/23 07/16/23 Range/Units 04:30 04:30 06:40 WBC (3.8-10.6) k/uL RBC (3.80-5.40) m/uL Hgb (11.4-16.0) gm/dL Hct (34.0-46.0) % MCHC (31.0-37.0) g/dL Neutrophils # (1.3-7.7) k/uL Lymphocytes # (1.0-4.8) k/uL APTT 78.4 H (22.0-30.0) sec Sodium 148 H (137-145) mmol/L Potassium (3.5-5.1) mmol/L Chloride 114 H (98-107) mmol/L BUN 38 H (7-17) mg/dL Glucose 197 H (74-99) mg/dL POC Glucose (mg/dL) 218 H (70-110) mg/dL Alkaline Phosphatase 145 H (38-126) U/L Total Protein 4.7 L (6.3-8.2) g/dL Albumin 2.0 L (3.5-5.0) g/dL 07/16/23 Range/Units 06:53 WBC (3.8-10.6) k/uL RBC (3.80-5.40) m/uL Hgb (11.4-16.0) gm/dL Hct (34.0-46.0) % MCHC (31.0-37.0) g/dL Neutrophils # (1.3-7.7) k/uL Lymphocytes # (1.0-4.8) k/uL APTT (22.0-30.0) sec Sodium (137-145) mmol/L Potassium (3.5-5.1) mmol/L Chloride (98-107) mmol/L BUN (7-17) mg/dL Glucose (74-99) mg/dL POC Glucose (mg/dL) 215 H (70-110) mg/dL Alkaline Phosphatase (38-126) U/L Total Protein (6.3-8.2) g/dL Albumin (3.5-5.0) g/dL Microbiology - Last 24 Hours (Table) 07/12/23 16:00 Blood Culture - Preliminary Blood Assessment and Plan Assessment: Status post Motor laparotomy. Continue anabiotic support as well as nutrition. Plan: Continue nutrition support, rest for status is currently the main issue.
[2023-07-16] MEDS: DILTIAZEM 125 MG in SODIUM CHLORIDE 0.9% 100 ML IV SCH (11:59)
[2023-07-16] MEDS ORDERED: 1: MVI, ADULT NO.4 WITH VIT K 10 ML, TRACE (CONC-1ML/DOSE) 1 ML, POTASSIUM ACETATE 10 ME IV SCH ×6 (12:00)
[2023-07-16] MEDS: METOPROLOL TARTRATE 5 MG/5 ML VIAL IVP PRN (12:05)
[2023-07-16] MEDS: METOCLOPRAMIDE 5 MG/ML 2 ML VIAL IVP PRN (12:16)
[2023-07-16] MEDS ORDERED: DEXTROSE 5% IN WATER 100 ML with AMIODARONE 150 MG IV ONE ×2 (12:25→14:00)
[2023-07-16] MEDS ORDERED: AMIODARONE 360 MG in DEXTROSE 5% IN WATER 200 ML IV ONE ×2 (12:25)
[2023-07-16 12:59] LABS: Glucose,Whole Blood 294 mg/dL (70-110)
[2023-07-16] MEDS ORDERED: NOREPINEPHRINE 4 MG in SODIUM CHLORIDE 0.9% 250 ML IV SCH (13:00)
--- NOTE | 2023-07-16 14:04 | P.PN ---
Subjective Progress Note Date: 07/16/23 This is Duglas Fuller NP, I'm dictating on behalf of Dr. Bowman's H&P and A&P. Patient was interviewed and examined. Patient is a pleasant 82-year-old female who had hernia repair with mesh, and then perforations that also needed care. The patient has been going in and out of atrial fibrillation with rapid ventricular response. Unfortunately this morning the patient's A. fib with RVR started again, however her heart rate was in the upper 180s to 190s. Nursing reported that they increased her Cardizem, gave her a Cardizem bolus, gave 5 mg of IV Lopressor, with no effect. They then started the patient on amiodarone with 150 mg bolus, again to no effect. Upon examination, the patient is found to be in atrial fibrillation with rapid ventricular response with a heart rate in the 150s. Patient does not appear to be in any greater distress because of this. She is not experiencing any chest p ain at this time. GENERAL: Ill-appearing, well-nourished and tachypnic on BiPAP. NECK: Supple without JVD or thyromegaly. LUNGS: Breath sounds demonstrate mild rhonchi. Respiration equal and unlabored. No wheezes, rales. HEART: Irregular rate rate and irregular rhythm without murmurs, rubs or ga llops. S1 and S2 heard. EXTREMITIES: Normal range of motion, no edema. No clubbing or cyanosis. P eripheral pulses intact and strong. VITALS: Temp 97.6, pulse 146, respirations 36, blood pressure 104/75, O2 saturation 99% on BiPAP TELEMETRY: Atrial fibrillation with rapid ventricular response LABS: White count 28.7, hemoglobin 7.5, platelets 448, sodium 148, potassium 3.9, chloride 114, B1 38, creatinine 0.68, magnesium 2.2 IMPRESSION: 1. Persistent atrial fibrillation 2. Gastric perforation, with repair 3. Acute respiratory failure, on BiPAP PLAN: Decrease Cardizem to 10 mg an hour. Give another 150 mg bolus of amiodarone over one hour. Keep on 1 mg per hour of amiodarone after the bolus. May take multiple days for amiodarone to take effect. Continue to monitor blood pressure. Further recommendations based on patient's clinical course. Objective - Vital Signs Vital signs: Vital Signs Temp 97.6 F 07/16/23 12:00 Pulse 146 H 07/16/23 13:00 Resp 36 H 07/16/23 13:00 BP 104/75 07/16/23 13:00 Pulse Ox 99 07/16/23 13:00 FiO2 100 07/16/23 12:00 Intake & Output 07/15/23 07/16/23 07/16/23 18:59 06:59 18:59 Intake Total 417.5 841.824 605.833 Output Total 5025 1065 565 Balance -4607.5 -223.176 40.833 Intake: IV 416 606 491 A line 36 36 21 Anidulafungin 100 mg In 100 Dextrose 5% in Water 100 ml @ 84 mls/hr IVPB DAILY [facility] Rx#:[id number] Anidulafungin 100 mg In 100 Sodium Chloride 0.9% 100 ml @ 84 mls/hr IVPB DAILY [facility] Rx#:[id number] DAPTOmycin 500 mg In 50 Sodium Chloride 0.9% 50 ml @ 100 mls/hr IVPB Q24H [facility] Rx#:[id number] Piperacillin-Tazobactam 3 100 100 100 .375 gm In Sodium Chloride 0.9% 100 ml @ 25 mls/hr IVPB Q8H [facility] Rx#: [id number] Potassium Chloride 10 meq 100 100 In Water For Injection 1 100ml.bag @ 100 mls/hr IVPB Q1H [facility] Rx#: [id number] Potassium Chloride 20 meq 200 In Water For Injection 1 100ml.bag @ 50 mls/hr IVPB Q2H [facility] Rx#: [id number] Sodium Acetate 30 meq 60 Potassium Acetate 20 meq Calcium Gluconate 1 gm In Amino Acid 5%-D15w 1,000 ml @ 60 mls/hr IV .BY DURATION [facility] Rx#: [id number] Sodium Ferric Gluconat- 100 Sucrose 125 mg In Sodium Chloride 0.9% 100 ml @ 100 mls/hr IVPB DAILY [facility] Rx#:[id number] kvo 120 120 70 Intake, IV Titration 1.5 235.824 114.833 Amount Diltiazem 125 mg In 114.833 Sodium Chloride 0.9% 100 ml @ 5 MG/HR 5 mls/hr IV .Q24H [facility] Rx#:[id number] Diltiazem 125 mg In 1.5 Sodium Chloride 0.9% 100 ml @ 7.5 MG/HR 7.5 mls/hr IV .[id number] [facility] Rx#: [id number] Heparin Sod,Pork in 0.45% 235.824 NaCl 25,000 unit In 0.45 % NaCl 1 250ml.bag @ 12 UNITS/KG/HR 9.792 mls/hr IV .Q24H [facility] Rx#: [id number] Output: Chest Tube Drainage 130 Chest Tube Left 130 Gastric Drainage 75 Drainage 40 30 Left Abdomen 20 Right Abdomen 40 10 Urine 4780 1035 565 Other: Voiding Method Indwelling Catheter Indwelling Catheter Indwelling Catheter ABP, PAP, CO, CI - Last Documented Arterial Blood Pressure 122/60 - Labs CBC & Chem 7: 07/16/23 04:30 07/16/23 04:30 Labs: Abnormal Lab Results - Last 24 Hours (Table) 07/15/23 07/15/23 07/16/23 Range/Units 17:58 18:17 01:41 WBC (3.8-10.6) k/uL RBC (3.80-5.40) m/uL Hgb (11.4-16.0) gm/dL Hct (34.0-46.0) % MCHC (31.0-37.0) g/dL Neutrophils # (1.3-7.7) k/uL Lymphocytes # (1.0-4.8) k/uL APTT (22.0-30.0) sec Sodium 147 H (137-145) mmol/L Potassium 3.3 L (3.5-5.1) mmol/L Chloride 113 H (98-107) mmol/L BUN 40 H (7-17) mg/dL Glucose 184 H (74-99) mg/dL POC Glucose (mg/dL) 209 H 203 H (70-110) mg/dL Alkaline Phosphatase (38-126) U/L Total Protein (6.3-8.2) g/dL Albumin (3.5-5.0) g/dL 07/16/23 07/16/23 07/16/23 Range/Units 01:42 04:30 04:30 WBC 28.7 H (3.8-10.6) k/uL RBC 2.75 L (3.80-5.40) m/uL Hgb 7.5 L (11.4-16.0) gm/dL Hct 24.2 L (34.0-46.0) % MCHC 30.9 L (31.0-37.0) g/dL Neutrophils # 27.4 H (1.3-7.7) k/uL Lymphocytes # 0.6 L (1.0-4.8) k/uL APTT 78.4 H (22.0-30.0) sec Sodium (137-145) mmol/L Potassium (3.5-5.1) mmol/L Chloride (98-107) mmol/L BUN (7-17) mg/dL Glucose (74-99) mg/dL POC Glucose (mg/dL) 216 H (70-110) mg/dL Alkaline Phosphatase (38-126) U/L Total Protein (6.3-8.2) g/dL Albumin (3.5-5.0) g/dL 07/16/23 07/16/23 07/16/23 Range/Units 04:30 06:40 06:53 WBC (3.8-10.6) k/uL RBC (3.80-5.40) m/uL Hgb (11.4-16.0) gm/dL Hct (34.0-46.0) % MCHC (31.0-37.0) g/dL Neutrophils # (1.3-7.7) k/uL Lymphocytes # (1.0-4.8) k/uL APTT (22.0-30.0) sec Sodium 148 H (137-145) mmol/L Potassium (3.5-5.1) mmol/L Chloride 114 H (98-107) mmol/L BUN 38 H (7-17) mg/dL Glucose 197 H (74-99) mg/dL POC Glucose (mg/dL) 218 H 215 H (70-110) mg/dL Alkaline Phosphatase 145 H (38-126) U/L Total Protein 4.7 L (6.3-8.2) g/dL Albumin 2.0 L (3.5-5.0) g/dL 07/16/23 Range/Units 12:46 WBC (3.8-10.6) k/uL RBC (3.80-5.40) m/uL Hgb (11.4-16.0) gm/dL Hct (34.0-46.0) % MCHC (31.0-37.0) g/dL Neutrophils # (1.3-7.7) k/uL Lymphocytes # (1.0-4.8) k/uL APTT (22.0-30.0) sec Sodium (137-145) mmol/L Potassium (3.5-5.1) mmol/L Chloride (98-107) mmol/L BUN (7-17) mg/dL Glucose (74-99) mg/dL POC Glucose (mg/dL) 294 H (70-110) mg/dL Alkaline Phosphatase (38-126) U/L Total Protein (6.3-8.2) g/dL Albumin (3.5-5.0) g/dL Microbiology - Last 24 Hours (Table) 07/11/23 18:08 Anaerobic Culture - Final Abdomen 07/12/23 16:00 Blood Culture - Preliminary Blood
--- NOTE | 2023-07-16 14:57 | P.PN ---
Subjective Progress Note Date: 07/16/23 82-year-old female patient with history of hypertension, hyperlipidemia, CVA/TIA, restless leg syndrome, iron deficiency anemia, anxiety/depression, recurrent paraesophageal hiatal hernia, admitted to the hospital for elective laparoscopic repair of paraesophageal hernia with absorbable mesh -- Patient underwent procedure on 07/01/2023 with POD #0 - Internal medicine service is consulted for medical management - Patient is evaluated resting in bed; reports uncontrolled pain; requesting anti-anxiety medication which is usually requires/inpatient 07/03/2023 patient is seen and evaluated in room at bedside; reports some difficulty breathing VS are reviewed; O2 saturation at 93% with some basilar crackles -- we will order BNP and stat Cxray; patient remains on IV Zosyn -- Sodium is elevated at 146; patient is placed on slow IVF hydration 07/15/2023 -- patient is postop day #3, status post repair of the gastric perforation, drainage of abdominal abscess, exploratory laparotomy, and lysis of adhesions. Yesterday, the patient was extubated from mechanical ventilation. Currently she is on 3 L of nasal cannula. NG tube is noted. She continues on IV heparin, and TPN at 60 mL an hour. Antibiotics include daptomycin, Zosyn, and Eraxis. Blood cultures were positive for vancomycin-resistant enterococci. The patient is having gurgling respirations, and I give her Lasix 60 mg IV push today. I told the nurse that that doesn't work, the patient can be placed on BiPAP, and I gave her BiPAP settings. White count is 22.9, hemoglobin 7.8, hematocrit 20.9, and platelet count 480,000. Blood gases show pO2 71, pCO2 of 41, and a pH is 7.41. That was on 3 L. Sodium 147, potassium 4, chlorides 119, CO2 24, BUN 37, and creatinine 0.78. Magnesium is 2.7. Phosphorus is 2.4. Glucose is 165. Chest x-ray shows bilateral patchy infiltrates, which could be consistent with either infection and/or pulmonary edema. Left chest tube remains in place. 07/16/2023 Patient is seen and evaluated in room at bedside; patient is postop day #4, status post repair of gastric perforation, drainage of intra-abdominal abscess, exploratory laparotomy, and lysis of adhesions. The patient was extubated from mechanical ventilation on July 14. Currently, the patient is on BiPAP, with settings of 10/5, and 40%. She's getting heparin via weightbase protocol, TPN at 50 mL an hour, Cardizem drip at 5 mg an hour, and saline at 10 mL an hour. Her left-sided chest tube came out yesterday, July 15. Today, we will attempt to try the patient on high flow nasal cannula. Current white count is 28.7, hemoglobin 7.5, hematocrit 24.2, and platelet count 448,000. Sodium 148, potassium 3.9, chlorides 114, CO2 27, BUN 38, creatinine 0.68. Albumin is 2. Blood cultures from July 11 are positive for vancomycin-resistant enterococci. Chest x-ray shows interval removal of thoracotomy tube without evidence of pneumothorax. There is cardiomegaly, with pulmonary vascular congestion. Pulmonary is planning a trial of high flow nasal cannula, plan to place patient back on BiPAP if not able to tolerate Objective - Vital Signs Vital signs: Vital Signs Temp 97.7 F 07/16/23 08:00 Pulse 89 07/16/23 10:30 Resp 34 H 07/16/23 10:30 BP 130/63 07/16/23 10:30 Pulse Ox 92 L 07/16/23 10:30 FiO2 40 07/16/23 08:00 Intake & Output 07/15/23 07/16/23 07/16/23 18:59 06:59 18:59 Intake Total 417.5 841.824 26 Output Total 5025 1065 130 Balance -4607.5 -223.176 -104 Intake: IV 416 606 26 A line 36 36 6 Anidulafungin 100 mg In 100 Sodium Chloride 0.9% 100 ml @ 84 mls/hr IVPB DAILY [facility] Rx#:[id number] DAPTOmycin 500 mg In 50 Sodium Chloride 0.9% 50 ml @ 100 mls/hr IVPB Q24H [facility] Rx#:[id number] Piperacillin-Tazobactam 3 100 100 .375 gm In Sodium Chloride 0.9% 100 ml @ 25 mls/hr IVPB Q8H [facility] Rx#: [id number] Potassium Chloride 10 meq 100 In Water For Injection 1 100ml.bag @ 100 mls/hr IVPB Q1H [facility] Rx#: [id number] Potassium Chloride 20 meq 200 In Water For Injection 1 100ml.bag @ 50 mls/hr IVPB Q2H [facility] Rx#: [id number] Sodium Acetate 30 meq 60 Potassium Acetate 20 meq Calcium Gluconate 1 gm In Amino Acid 5%-D15w 1,000 ml @ 60 mls/hr IV .BY DURATION [facility] Rx#: [id number] kvo 120 120 20 Intake, IV Titration 1.5 235.824 Amount Diltiazem 125 mg In 1.5 Sodium Chloride 0.9% 100 ml @ 7.5 MG/HR 7.5 mls/hr IV .[id number] [facility] Rx#: [id number] Heparin Sod,Pork in 0.45% 235.824 NaCl 25,000 unit In 0.45 % NaCl 1 250ml.bag @ 12 UNITS/KG/HR 9.792 mls/hr IV .Q24H [facility] Rx#: [id number] Output: Chest Tube Drainage 130 Chest Tube Left 130 Gastric Drainage 75 Drainage 40 30 Left Abdomen 20 Right Abdomen 40 10 Urine 4780 1035 130 Other: Voiding Method Indwelling Catheter Indwelling Catheter Indwelling Catheter ABP, PAP, CO, CI - Last Documented Arterial Blood Pressure 162/57 - Exam - Constitutional General appearance: Present: average body habitus, cooperative, no acute distress - EENT Eyes: Present: anicteric sclerae, EOMI, PERRLA, normal appearance ENT: Present: hearing grossly normal, normal oropharynx Ears: bilateral: normal - Neck Neck: Present: normal ROM. Absent: lymphadenopathy, rigidity, thyromegaly Carotids: negative: bruit present Thyroid: bilateral: normal size, negative: enlarged, nodule - Respiratory Respiratory: bilateral: CTA, negative: rales, rhonchi, wheezing - Cardiovascular Rhythm: regular Heart sounds: normal: S1, S2 Abnormal Heart Sounds: Absent: systolic murmur, diastolic murmur - Gastrointestinal General gastrointestinal: Present: normal bowel sounds, soft. Absent: diste nded, organomegaly, tenderness - Genitourinary Genitourinary Comment(s): deferred - Integumentary Integumentary: Present: normal turgor. Absent: jaundiced, rash, ulcer - Neurologic Neurologic: Present: CNII-XII intact. Absent: focal deficits - Musculoskeletal Musculoskeletal: Present: gait normal, strength equal bilaterally - Psychiatric Psychiatric: Present: A&O x's 3, appropriate affect, intact judgment & insight - Labs CBC & Chem 7: 07/16/23 04:30 07/16/23 04:30 Labs: Abnormal Lab Results - Last 24 Hours (Table) 07/15/23 07/15/23 07/15/23 Range/Units 12:11 17:58 18:17 WBC (3.8-10.6) k/uL RBC (3.80-5.40) m/uL Hgb (11.4-16.0) gm/dL Hct (34.0-46.0) % MCHC (31.0-37.0) g/dL Neutrophils # (1.3-7.7) k/uL Lymphocytes # (1.0-4.8) k/uL APTT (22.0-30.0) sec Sodium 147 H (137-145) mmol/L Potassium 3.3 L (3.5-5.1) mmol/L Chloride 113 H (98-107) mmol/L BUN 40 H (7-17) mg/dL Glucose 184 H (74-99) mg/dL POC Glucose (mg/dL) 228 H 209 H (70-110) mg/dL Alkaline Phosphatase (38-126) U/L Total Protein (6.3-8.2) g/dL Albumin (3.5-5.0) g/dL 07/16/23 07/16/23 07/16/23 Range/Units 01:41 01:42 04:30 WBC 28.7 H (3.8-10.6) k/uL RBC 2.75 L (3.80-5.40) m/uL Hgb 7.5 L (11.4-16.0) gm/dL Hct 24.2 L (34.0-46.0) % MCHC 30.9 L (31.0-37.0) g/dL Neutrophils # 27.4 H (1.3-7.7) k/uL Lymphocytes # 0.6 L (1.0-4.8) k/uL APTT (22.0-30.0) sec Sodium (137-145) mmol/L Potassium (3.5-5.1) mmol/L Chloride (98-107) mmol/L BUN (7-17) mg/dL Glucose (74-99) mg/dL POC Glucose (mg/dL) 203 H 216 H (70-110) mg/dL Alkaline Phosphatase (38-126) U/L Total Protein (6.3-8.2) g/dL Albumin (3.5-5.0) g/dL 07/16/23 07/16/23 07/16/23 Range/Units 04:30 04:30 06:40 WBC (3.8-10.6) k/uL RBC (3.80-5.40) m/uL Hgb (11.4-16.0) gm/dL Hct (34.0-46.0) % MCHC (31.0-37.0) g/dL Neutrophils # (1.3-7.7) k/uL Lymphocytes # (1.0-4.8) k/uL APTT 78.4 H (22.0-30.0) sec Sodium 148 H (137-145) mmol/L Potassium (3.5-5.1) mmol/L Chloride 114 H (98-107) mmol/L BUN 38 H (7-17) mg/dL Glucose 197 H (74-99) mg/dL POC Glucose (mg/dL) 218 H (70-110) mg/dL Alkaline Phosphatase 145 H (38-126) U/L Total Protein 4.7 L (6.3-8.2) g/dL Albumin 2.0 L (3.5-5.0) g/dL 07/16/23 Range/Units 06:53 WBC (3.8-10.6) k/uL RBC (3.80-5.40) m/uL Hgb (11.4-16.0) gm/dL Hct (34.0-46.0) % MCHC (31.0-37.0) g/dL Neutrophils # (1.3-7.7) k/uL Lymphocytes # (1.0-4.8) k/uL APTT (22.0-30.0) sec Sodium (137-145) mmol/L Potassium (3.5-5.1) mmol/L Chloride (98-107) mmol/L BUN (7-17) mg/dL Glucose (74-99) mg/dL POC Glucose (mg/dL) 215 H (70-110) mg/dL Alkaline Phosphatase (38-126) U/L Total Protein (6.3-8.2) g/dL Albumin (3.5-5.0) g/dL Microbiology - Last 24 Hours (Table) 07/12/23 16:00 Blood Culture - Preliminary Blood Assessment and Plan Assessment: 1. Recurrent paraesophageal hernia - Patient is status post laparoscopic repair of paraesophageal hiatal hernia with absorbable mesh; POD #0 - Currently on IV Dilaudid 0.5-1 mg every 4-6 hours when necessary for pain control - Zosyn 3.375 g IV every 8 hours - We will monitor CBC, CRP and pro-calcitonin 2. Hypertension; losartan 50 mg daily 3. Hyperlipidemia 4. Restless legs syndrome; Requip 4 mg by mouth 3 times a day 5. Anxiety/depression; Paxil 40 mg daily; we will add Xanax 0.5 mg twice a day when necessary DVT prophylaxis; SCDs/subcu Lovenox CODE STATUS; full code
[2023-07-16] MEDS ORDERED: POTASSIUM CHLORIDE 20 MEQ in WATER FOR INJECTION 1 100ML.BAG IVPB STA (15:06)
[2023-07-16 17:00] VITALS: TEMP 97.5
[2023-07-16] MEDS ORDERED: ATROPINE OPHTH SOLN 1% 5ML BTL SUBLINGUAL PRN (17:19)
[2023-07-16] MEDS ORDERED: MORPHINE SULFATE 2 MG/ML SYRINGE IV PRN (17:19)
[2023-07-16] MEDS: MORPHINE SULFATE 4 MG/ML SYRINGE IV PRN ×6 (17:48→18:44)
[2023-07-16] MEDS ORDERED: SCOPOLAMINE 1 MG/72 HR PATCH TRANSDERM SCH (18:00)
[2023-07-16] MEDS ORDERED: AMIODARONE 360 MG in DEXTROSE 5% IN WATER 200 ML IV SCH ×2 (18:00)
[2023-07-16 18:07] VITALS: BP 115/88; PULSE 149; RESP 34
[2023-07-16] MEDS ORDERED: MORPHINE SULFATE (100 MG/2 ML) 100 MG in SODIUM CHLORIDE 0.9% 100 ML IV SCH (18:30)
[2023-07-16] MEDS ORDERED: AMIODARONE 450 MG in DEXTROSE 5% IN WATER 250 ML IV SCH ×2 (19:00)
[2023-07-17] MEDS ORDERED: ANIDULAFUNGIN IVPB SCH ×2 (09:00)
[2023-07-17] MEDS ORDERED: WATER IVPB SCH ×2 (09:00)
[2023-07-17] MEDS ORDERED: DEXTROSE 5% IVPB SCH ×2 (09:00)
== END 2023-07-16 22:15 | disposition expired | DRG 326 ==
LOC: OR 07:10 → 5NMEDONC 11:21 → 3SCARD 07-04 14:27 → 2SICU 07-11 00:03
PROVIDERS: ADMIT Surgery; ATTEND Surgery
PROC: 0DB64ZZ Excision of Stomach, Percutaneous Endoscopic Approach (ICD-10-PCS; principal; 2023-07-01 08:20)
PROC: 0BUT4JZ Supplement Diaphragm with Synthetic Substitute, Percutaneous Endoscopic Approach (ICD-10-PCS; principal; 2023-07-01 08:20)
PROC: 0DNW4ZZ Release Peritoneum, Percutaneous Endoscopic Approach (ICD-10-PCS; principal; 2023-07-01 08:20)
PROC: 8E0W4CZ Robotic Assisted Procedure of Trunk Region, Percutaneous Endoscopic Approach (ICD-10-PCS; principal; 2023-07-01 08:20)
PROC: 0DQ60ZZ Repair Stomach, Open Approach (ICD-10-PCS; 2023-07-11)
PROC: 0DNW0ZZ Release Peritoneum, Open Approach (ICD-10-PCS; 2023-07-11)
PROC: 0W9B30Z Drainage of Left Pleural Cavity with Drainage Device, Percutaneous Approach (ICD-10-PCS; 2023-07-11)
PROC: 0D9670Z Drainage of Stomach with Drainage Device, Via Natural or Artificial Opening (ICD-10-PCS; 2023-07-11)
PROC: 5A1945Z Respiratory Ventilation, 24-96 Consecutive Hours (ICD-10-PCS; 2023-07-11)
PROC: 0BH17EZ Insertion of Endotracheal Airway into Trachea, Via Natural or Artificial Opening (ICD-10-PCS; 2023-07-11)
PROC: 3E033XZ Introduction of Vasopressor into Peripheral Vein, Percutaneous Approach (ICD-10-PCS; 2023-07-12)
PROC: 06HY33Z Insertion of Infusion Device into Lower Vein, Percutaneous Approach (ICD-10-PCS; 2023-07-12)
PROC: 3E0336Z Introduction of Nutritional Substance into Peripheral Vein, Percutaneous Approach (ICD-10-PCS; 2023-07-12)
PROC: 5A09457 Assistance with Respiratory Ventilation, 24-96 Consecutive Hours, Continuous Positive Airway Pressure (ICD-10-PCS; 2023-07-15)
DX: K44.9 Diaphragmatic hernia without obstruction or gangrene (principal); A41.81 Sepsis due to Enterococcus; G92.8 Other toxic encephalopathy; I50.31 Acute diastolic (congestive) heart failure; J18.9 Pneumonia, unspecified organism; J96.01 Acute respiratory failure with hypoxia; K25.5 Chronic or unspecified gastric ulcer with perforation; K65.1 Peritoneal abscess; N17.0 Acute kidney failure with tubular necrosis; R65.21 Severe sepsis with septic shock; E87.0 Hyperosmolality and hypernatremia; G45.9 Transient cerebral ischemic attack, unspecified; I42.9 Cardiomyopathy, unspecified; I48.19 Other persistent atrial fibrillation; J44.0 Chronic obstructive pulmonary disease with (acute) lower respiratory infection; J44.1 Chronic obstructive pulmonary disease with (acute) exacerbation; J90 Pleural effusion, not elsewhere classified; J93.9 Pneumothorax, unspecified; J98.11 Atelectasis; R18.8 Other ascites; Z16.21 Resistance to vancomycin; I11.0 Hypertensive heart disease with heart failure; Z66 Do not resuscitate; Z51.5 Encounter for palliative care; I27.20 Pulmonary hypertension, unspecified; F32.A Depression, unspecified; I08.2 Rheumatic disorders of both aortic and tricuspid valves; D50.9 Iron deficiency anemia, unspecified; G25.81 Restless legs syndrome; K66.0 Peritoneal adhesions (postprocedural) (postinfection); K21.00 Gastro-esophageal reflux disease with esophagitis, without bleeding; Z11.52 Encounter for screening for COVID-19; E16.2 Hypoglycemia, unspecified; E78.5 Hyperlipidemia, unspecified; E86.0 Dehydration; E86.1 Hypovolemia; E87.6 Hypokalemia; F41.1 Generalized anxiety disorder; G89.29 Other chronic pain; I49.3 Ventricular premature depolarization; K31.89 Other diseases of stomach and duodenum; T50.2X5A Adverse effect of carbonic-anhydrase inhibitors, benzothiadiazides and other diuretics, initial encounter; Z79.82 Long term (current) use of aspirin; Z79.899 Other long term (current) drug therapy; Z82.49 Family history of ischemic heart disease and other diseases of the circulatory system; Z86.73 Personal history of transient ischemic attack (TIA), and cerebral infarction without residual deficits; Z87.891 Personal history of nicotine dependence; Z96.642 Presence of left artificial hip joint; Z98.1 Arthrodesis status; Z86.14 Personal history of Methicillin resistant Staphylococcus aureus infection; Z87.11 Personal history of peptic ulcer disease
CPT/HCPCS: 36600; 70450; 71045; 71046; 71260; 74018; 74177; 76604; 80048; 80053; 81001; 82330; 82607; 82728; 82746; 82805; 83540; 83550; 83605; 83735; 83880; 84100; 84132; 84145; 84443; 84478; 84484; 85025; 85027; 85379; 85610; 85730; 87040; 87070; 87075; 87077; 87186; 87205; 87449; 87636; 88307; 88342; 93005; 93306; 93970; 94002; 94003; 94640; 94660; 94760; 95819